=== PATIENT | female | born 1935 | race African-American/Black ===

== ENCOUNTER 2016-09-20 10:51 | Inpatient (IN) ==
[2016-09-20] MEDS ORDERED: LEVOFLOXACIN INJ 750 MG in PREMIX 1 EACH IV STA (11:06)
[2016-09-20] MEDS ORDERED: METOCLOPRAMIDE 10 MG/2 ML VIAL IV STA (11:06)
[2016-09-20] MEDS ORDERED: SODIUM CHLORIDE 0.9% 1,000 ML IV STA ×2 (11:06→14:14)
[2016-09-20] MEDS ORDERED: methylPREDNISolone SOD SUC 125 MG/2 ML VIAL IV STA (11:06)
[2016-09-20] MEDS ORDERED: ONDANSETRON 4 MG/2 ML VIAL IV STA (11:06)
--- NOTE | 2016-09-20 11:11 | Emergency Department Note ---
Arrival - Arrival Chief Complaint: Shortness of Breath ED Nursing Triage Note: SOB WITH N/V ONSET LAST NIGHT, PT LIVES ALONE. ACCU CHECK 241 MG/DL Mode of Arrival: Stretcher Limitations: No Limitations Source: Patient Time Seen by Provider: 09/20/16 11:06 - History of Present Illness HPI Narrative: This 81-year-old black female who lives alone presents with 24 hours of intermittent nausea, vomiting, abdominal pain, intermittent wheeze, and progressive shortness of breath. The patient does not report any purulence, chest pain, chills, fever, diarrhea, bright red blood per rectum, or melena. Patient is diabetic and current Accu-Chek is 240. I have the moment she is alert and oriented with her main complaint being just not feeling well at all. Onset (ago): hour(s) (Patient presents 24 hours post onset of symptoms) Allergies/Adverse Reactions: Allergies Allergy/AdvReac Type Severity Reaction Status Date / Time Penicillins Allergy ANAPHYLAXIS Verified 09/20/16 11:00 Home Medications: Home Medications Medication Instructions Recorded Confirmed Type Allopurinol [Zyloprim] 100 mg PO DAILY 02/05/16 07/27/16 History Aspirin EC Tab 81 mg PO DAILY 02/05/16 07/27/16 History Diclofenac Sodium Tab [Voltaren] 75 mg PO BID 02/05/16 07/27/16 History Fluticasone/Vilanterol [Breo 1 puff INH DAILY 02/05/16 07/27/16 History Ellipta 100-25 Mcg INH] Furosemide Tab [Lasix Tab] 40 mg PO DAILY PRN 02/05/16 07/27/16 History Insulin NPH Human Isophane 10 unit SUBCUT BID 02/05/16 07/27/16 History [NovoLIN N] Letrozole [Femara] 2.5 mg PO DAILY 02/05/16 07/27/16 History Meloxicam [Mobic] 15 mg PO DAILY 02/05/16 07/27/16 History Montelukast Tab [Singulair Tab] 10 mg PO BEDTIME 02/05/16 07/27/16 History Spironolactone [Aldactone] 25 mg PO DAILY 02/05/16 07/27/16 History Thyroid [[place] Thyroid] 30 mg PO DAILY 02/05/16 07/27/16 History Tiotropium Inhalation [Spiriva 18 mcg INH DAILY 02/05/16 07/27/16 History Handihaler] HYDROcodone/ACETAMIN 10-325 [[place] 1 tablet PO Q6H PRN #20 tablet 02/10/1607/27 Rx 10-325] Albuterol Inhaler [Proventil 2 puff INH Q4H PRN 07/27/16 07/27/16 History Inhaler] Linaclotide [Linzess] 145 mcg PO AC BREAKFAST 07/27/16 07/27/16 History Review of System - Review of System 12 point system: reviewed and no additional remarkable complaints except as stated - Review of System Constitutional: Present: as per HPI Respiratory: Present: as per HPI Cardiovascular: Present: as per HPI Gastrointestinal: Present: as per HPI Medical,Surgical,& Family Hx - Medical History Cardio: History of: CHF, Hypertension, Pacemaker Endocrine: History of: Diabetes Mellitus (IDDM), Diabetes Mellitus (NIDDM), Thyroid Disorder Respiratory: History of: Asthma, COPD Gastrointestinal: History of: Bowel Obstruction Musculoskeletal: History of: Musculoskeletal Problems (right knee arthritis) Reproductive: History of: Breast Cancer (2014) Other: History of: Cancer - Surgical History Abdominal Surgeries: Surgical HX of: Abdominal Surgery (bowel obstruction surgery), Hernia Repair - Family History Family History: Reports;: Family Diabetes (brothers and sisters) - Social History Smoking Status: Unknown if ever smoked Exam Physical Examination: GENERAL: Morbidly obese black female and mild distress. HEENT: Normocephalic. No trauma. Moist mucous membranes. EOMI. PERRLA. ENT NML NECK: Supple. No adenopathy. CARDIAC: Regular. No murmurs. Heart rate 76 CHEST: Scattered expiratory vignesh. No respiratory distress. O2 sat 100% ABDOMEN: Soft. Tender left lower quadrant with hypoactive bowel sounds bowel sounds.: feces found in vault ginal vauEXTREMITIES: No trauma. Normal ROM. No pedal edema. SKIN: No diaphoresis. No rash. Skin warm. NEURO: Alert. Neuro intact no focal deficits. Vital Signs: Vital Signs Temperature 98.1 F 09/20/16 12:28 Pulse Rate 81 09/20/16 12:38 Respiratory Rate 18 09/20/16 12:38 Blood Pressure 82/41 09/20/16 12:28 O2 Sat by Pulse Oximetry 93 L 09/20/16 12:38 Course - Reevaluation(s) Reevaluation #1: Discussed with patient and family the need for hospitalization - Consultations Consultation #1: Discussed with Dr. Allred who will see in consult as he feels her numerous medical problems require medicine admission while following her obstruction. Consultation #2: Discussed the case with the hospitalist service who will admit the patient for further evaluation treatment. Results - Labs CBC & BMP: 09/20/16 11:47 09/20/16 11:47 Labs: I reviewed the laboratory and noted the low potassium and evidence of renal azotemia. - Impressions EKG: Sinus rhythm at 80 with normal NH interval but evidence of left bundle branch block with left axis deviation. Nonspecific ST changes but no acute injury pattern noted. - Diagnostic Findings Procedure: Chest x-ray: image reviewed by me, report reviewed by me (Pacemaker with cardiomegaly and increased interstitial markings), CT Abdomen and Pelvis: image reviewed by me, report reviewed by me (Small bowel obstruction secondary to adhesions) Disposition Clinical Impression: Small bowel obstruction, Congestive heart failure, Renal insufficiency, Diabetes, Hypertension, Pacemaker Case discussed with: patient, patient's family Disposition: Still a Patient Condition: Guarded Time of Disposition: 14:45
--- NOTE | 2016-09-20 11:11 | EKG Report ---
Stationary ECG Study [facility] ER Test Date: 09/20/2016 11:02:55 AM Pat Name: KIKI ANGEL Department: Room: 125 Gender: F [employer]: : 1935 Requested by: Stew Ellington Order Number: [id number] Ines MD: ZENON PINO Intervals [place] Rate: 81 P: 83 MD: 188 QRS: -43 QRSD: 141 T: 171 QT: 522 QTc: 560 Interpretive Statements SINUS RHYTHM MARKED LEFT AXIS DEVIATION LEFT BUNDLE BRANCH BLOCK Electronically Signed On 09-21-16 20:37:07 CDT by ZENON PINO [email or web address]
[2016-09-20] MEDS ORDERED: metroNIDAZOLE INJ 500 MG in PREMIX 1 EACH IV STA (11:22)
[2016-09-20] MEDS ORDERED: ALBUTEROL 2.5 MG/3 ML NEB RESP TX SCH (11:30)
--- NOTE | 2016-09-20 11:35 | XRay Report ---
XR chest 1V portable Indication: SOB Comparison: Chest x-ray dated July 27, 2016 Technique: Single frontal view of the chest. Findings: Continued cardiomegaly. Cardiac pacemaker apparatus again noted within the right chest. There is nonspecific prominence of lung markings suspicious for interstitial pulmonary edema. Chronic/fibrotic change and interstitial pneumonia may have similar appearance. Visualized osseous and surrounding soft tissue structures appear grossly unchanged. IMPRESSION: As above. PROCEDURE INTERPRETED AT [facility] [place] DEPARTMENT OF RADIOLOGY Final Report Signed by: Dr Osman Willoughby
[2016-09-20] MEDS ORDERED: ONDANSETRON 4 MG/2 ML VIAL ONE (11:49)
[2016-09-20] MEDS ORDERED: METOCLOPRAMIDE 10 MG/2 ML VIAL ONE (11:49)
[2016-09-20] MEDS ORDERED: LEVOFLOXACIN INJ 150 ML IV ONE (11:49)
[2016-09-20] MEDS ORDERED: methylPREDNISolone SOD SUC 125 MG/2 ML VIAL ONE (11:49)
[2016-09-20 12:09] LABS: Basophils % 0.5 % (0.0-0.8); Eosinophils % 0.2 % (0.00-10.9); Hematocrit 39.7 VOL% (35.7-47.0); Hemoglobin 12.6 GM/DL (12.0-16.0); Immature Granulocytes % 0.4 %; Immature Granulocytes Absolute 0.03 #; Lymphocytes # 0.6 10*3/uL (1.4-4.0); Lymphocytes % 6.8 % (21.3-54.2); Mean Corpuscular HGB Conc 31.7 GM/DL (32-36); Mean Corpuscular Hemoglobin 29 PG (27-34); Mean Corpuscular Volume 90.8 FL (87-102); Mean Platelet Volume 12.3 FL (9.6-12.0); Monocytes # 0.7 10*3/uL (0.11-0.8); Monocytes % 7.8 % (1.7-12.7); Neutrophils % 84.3 % (38.7-73.9); Platelet Count 275 T/CUMM (130-400); Red Blood Count 4.37 MC/CUMM (3.8-5.5); Red Cell Distribution Width 14.9 % (9.3-17.3); White Blood Count 8.3 T/CUMM (4-12)
[2016-09-20 12:12] LABS: Apearance,Urine Slightly Hazy (Clear); Bilirubin,Urine Negative (Negative); Blood, Urine Negative (Negative); Glucose,Urine (UA) Negative (Negative); Hyaline Casts,Urine 9 /LPF (0-3); Ketones,Urine Negative (Negative); Mucus,Urine Occasional /LPF (Occasional); Nitrite,Urine Negative (Negative); Protein,Urine Negative; RBC,Urine 1 /HPF (0-4); Urine Color Yellow (Yellow); Urine Specific Gravity 1.013 (1.001-1.035); Urine Urobilinogen < 2.0 EU/DL (0.2-1.0); WBC,Urine 1 /HPF (0-6)
[2016-09-20 12:23] LABS: Barbiturates Screen,Urine Negative (Negative); Benzodiazepines Screen,Urine Negative (Negative); Cannabinoid Screen,Urine Negative (Negative); Opiate Screen,Urine Positive (Negative); Phencyclidine Screen,Urine Negative (Negative)
[2016-09-20 12:39] LABS: INR 1.2; PT Patient Result 13.3 SECS; Partial Thromboplastin Time 29.9 SECS (0-40)
[2016-09-20 12:45] LABS: Lactic Acid 6.6 MMOL/L (0.4-2.0)
[2016-09-20 12:46] LABS: Alanine Aminotransferase 11 U/L (13-56); Albumin 3.3 G/DL (3.4-5.0); Alkaline Phosphatase 141 U/L (45-117); Aspartate Amino Transferase 16 U/L (0-37); Calcium 9.1 MG/DL (8.5-10.1); Total Protein 7.3 G/DL (6.4-8.3)
[2016-09-20 12:47] LABS: Amylase 65 U/L (25-115); Blood Urea Nitrogen 57 MG/DL (7-18); Glucose 229 MG/DL (74-106); Osmolality,Calculated 305.1 MOS/KG (273-304); Potassium 3.4 MMOL/L (3.5-5.1); Sodium 142 MMOL/L (136-145)
[2016-09-20 12:53] LABS: Band Neutrophils 51 % (0-10); Eosinophils 1 % (0-10); Hypochromasia Slight; Lymphocytes 10 % (20-55); Platelet Estimate Adequate; Segmented Neutrophils 26 % (50-85); Total Cells Counted 100
[2016-09-20 12:54] LABS: Troponin I Only 0.063 NG/ML (0.00-0.045)
--- NOTE | 2016-09-20 14:01 | CT Report ---
CT abdomen pelvis wo con Indication: Small bowel obstruction Comparison: None. Technique: CT of the abdomen and pelvis was performed without administration of intravenous contrast. The CT examination was performed using one or more of the following dose reduction techniques: Automatic exposure control, adjustment of the mA and kV according to patient size, use of acute or iterative reconstruction techniques. Findings: Complete evaluation of solid organs, vascular structures, and bowel wall is not possible secondary to lack of intravenous contrast. Lower chest: Pacemaker wires are present. Coronary artery calcifications are present. Diffusely distributed air space disease is demonstrated within the bilateral lower lobes. Nodular airspace attenuation is more prevalent within the left lower lobe and bilaterally, bronchiectasis is demonstrated as is possible dependent atelectasis within the left lower lobe. Additional bronchiectasis is present within the lingula. Honeycombing additionally is present bilaterally within the posterior lower lobes. The overall attenuation of the lung parenchyma is somewhat increased. Correlation with amiodarone therapy is recommended as this could reflect sequelae of amiodarone therapy and evidence of toxicity. Pulmonary arteries appear enlarged. Liver: No mass lesions or acute findings are demonstrated. Calcification along the posterior margin of the right hepatic lobe is again demonstrated. Gallbladder: Surgical absence of the gallbladder is demonstrated. Spleen: Spleen is normal in size and appearance. Pancreas: Pancreas demonstrates no significant abnormality. Adrenal glands: The adrenal glands demonstrate no significant abnormalities. Kidneys: The kidneys demonstrate no significant abnormalities. Aorta: Diffuse intimal calcification of the aorta and iliac arteries is demonstrated. Inferior vena cava: The inferior vena cava demonstrates no significant abnormality. Lymph nodes: No adenopathy is noted within the abdomen or pelvis. Stomach and bowel: Stomach is distended and filled with contrast. There is a thickened appearance of the second portion of the duodenal wall which may reflect contraction. Otherwise the duodenum and small bowel are grossly distended with multiple air fluid levels in a pattern compatible small bowel obstruction. Along the anterior abdominal wall to the right of midline image #82, there is a suggests transition point possibly secondary to adhesion distal to which small bowel loops are decompressed. Small bowel loops measure up to 4.7 cm. Intrapelvic contents: Partially calcified uterine fibroids are demonstrated. Ovaries are unremarkable. Skeletal structures: Moderately advanced multifocal facet arthropathy of the lower lumbar spine facets is demonstrated. Soft tissues and muscular structure of the body wall: Demonstrate no significant abnormalities. Impression: 1. Findings compatible with given history. Transition point appears to lie along the anterior abdominal wall to the right of midline and the appearance suggests abdominal wall adhesion. 2. Wall thickening within the second portion the duodenum is present. 3. Partially calcified uterine fibroids are demonstrated. 4. The appearance of the lung parenchyma may in part reflect infectious process superimposed on chronic interstitial disease within the left lung base. Given the appearance of the heart with presence of pacemaker wire and combine with pulmonary fibrosis and increased attenuation of the lung parenchyma, this could reflect also sequelae of amiodarone therapy as a background process. 09/20/2016 1:50 PM PROCEDURE INTERPRETED AT [facility] DEPARTMENT OF RADIOLOGY Final Report Signed by: Dr. Herbert Juarez
[2016-09-20] MEDS ORDERED: BENZOCAINE/BUTAMBEN/TETRACAINE SPRAY 20 GM CAN TOP ONE (14:34)
--- NOTE | 2016-09-20 14:45 | General Surgery Consult Note ---
Assessment and Plan (1) Small bowel obstruction Status: Acute Assessment and plan: Impression: Multiple medical problems, small bowel obstruction Plan: I have reviewed the lab work and CT scan. She appears very dehydrated. She is receiving IV fluids. CT scan suggests a transition point. Will ask hospital medicine to admit the patient. We will plan for resuscitation. She may ultimately require exploration. She does not have an acute abdomen at this time. We will monitor lactic acidosis. I suspect it will improve with resuscitation. She has significant cardiac issues and a slightly elevated troponin that I suspect is related to the dehydration and underlying medical problems rather than an acute injury. Will consult cardiology for their evaluation. I do not think that her 2 week history of shortness of breath is related to the obstruction. We will place NG tube. Current Visit: No History of Present Illness Chief complaint: Consult for small bowel obstruction History of present illness: Ms. Oconnell is a 81 year old female who underwent repair of an incarcerated hernia causing a small bowel obstruction in January of last year. Patient presents with a two-week history of shortness of breath. Last night she became nauseated and began vomiting. She is brought to the emergency room this morning by EMS. She was noted to be hypotensive. She was given IV fluids and is now normotensive. States she is feeling a little bit better since she is not currently vomiting. She has multiple medical problems. She currently does not have much abdominal pain but does complain of bloating. Home Medications Medication Instructions Recorded Confirmed Type Allopurinol [Zyloprim] 100 mg PO DAILY 02/05/16 07/27/16 History Aspirin EC Tab 81 mg PO DAILY 02/05/16 07/27/16 History Diclofenac Sodium Tab [Voltaren] 75 mg PO BID 02/05/16 07/27/16 History Fluticasone/Vilanterol [Breo 1 puff INH DAILY 02/05/16 07/27/16 History Ellipta 100-25 Mcg INH] Furosemide Tab [Lasix Tab] 40 mg PO DAILY PRN 02/05/16 07/27/16 History Insulin NPH Human Isophane 10 unit SUBCUT BID 02/05/16 07/27/16 History [NovoLIN N] Letrozole [Femara] 2.5 mg PO DAILY 02/05/16 07/27/16 History Meloxicam [Mobic] 15 mg PO DAILY 02/05/16 07/27/16 History Montelukast Tab [Singulair Tab] 10 mg PO BEDTIME 02/05/16 07/27/16 History Spironolactone [Aldactone] 25 mg PO DAILY 02/05/16 07/27/16 History Thyroid [[place] Thyroid] 30 mg PO DAILY 02/05/16 07/27/16 History Tiotropium Inhalation [Spiriva 18 mcg INH DAILY 02/05/16 07/27/16 History Handihaler] HYDROcodone/ACETAMIN 10-325 [[place] 1 tablet PO Q6H PRN #20 tablet 02/10/1607/27 Rx 10-325] Albuterol Inhaler [Proventil 2 puff INH Q4H PRN 07/27/16 07/27/16 History Inhaler] Linaclotide [Linzess] 145 mcg PO AC BREAKFAST 07/27/16 07/27/16 History Allergies Allergy/AdvReac Type Severity Reaction Status Date / Time Penicillins Allergy ANAPHYLAXIS Verified 09/20/16 11:00 Medical,Surgical,& Family Hx - Medical History Cardio: History of: CHF, Hypertension, Pacemaker Endocrine: History of: Diabetes Mellitus (IDDM), Diabetes Mellitus (NIDDM), Thyroid Disorder Respiratory: History of: Asthma, COPD Gastrointestinal: History of: Bowel Obstruction Musculoskeletal: History of: Musculoskeletal Problems (right knee arthritis) Reproductive: History of: Breast Cancer (2015) Other: History of: Cancer - Surgical History Abdominal Surgeries: Surgical HX of: Abdominal Surgery (bowel obstruction surgery), Hernia Repair - Family History Family History: Reports;: Family Diabetes (brothers and sisters) - Social History Smoking Status: Unknown if ever smoked 12 point system: reviewed and no additional remarkable complaints except as stated Exam - Constitutional Vitals: Period Temp Pulse Resp BP Sys/[place] Pulse Ox Last 24 Hr 98.1 F-98.1 F 76-81 18-32 82-82/41-41 93-100 General appearance: no acute distress - Head Head exam: Present: normocephalic - ENT Mouth exam: Present: normal external inspection - Respiratory Respiratory exam: Present: clear to auscultation bilaterally - Cardiovascular Cardiovascular exam: Present: RRR - GI/Abdominal GI/Abdominal exam: Present: soft (Very distended, minimally tender mostly on the right. No peritoneal signs.) - Extremities Exam Extremities exam: Present: normal inspection - Neurological Exam Neurological exam: Present: alert, oriented X3 Speech: Present: normal - Skin Skin exam: Present: normal color Results - Labs CBC & BMP: 09/20/16 11:47 09/20/16 11:47 Lab Results: I have reviewed the past 24 hour labs
--- NOTE | 2016-09-20 15:21 | Cardiology Consult Note ---
Assessment and Plan - Time spent with patient Time spent with patient: Greater than 30 minutes (due to assessment,plan, and documentation) Time spent discussing smoking cessation with patient: 3 to 10 minutes (1) SBO (small bowel obstruction) Status: Acute Assessment and plan: SEE PLAN OF CARE LISTED BELOW. Current Visit: No (2) Elevated troponin Status: Acute Assessment and plan: SEE PLAN OF CARE LISTED BELOW. Current Visit: Yes (3) Dehydration Status: Acute Assessment and plan: SEE PLAN OF CARE LISTED BELOW. Current Visit: Yes (4) Nonischemic cardiomyopathy Status: Chronic Assessment and plan: SEE PLAN OF CARE LISTED BELOW. Current Visit: Yes (5) Chronic renal insufficiency Status: Chronic Assessment and plan: SEE PLAN OF CARE LISTED BELOW. Current Visit: Yes (6) Status post placement of cardiac pacemaker Status: Chronic Assessment and plan: SEE PLAN OF CARE LISTED BELOW. Current Visit: No (7) Hypertension Status: Chronic Assessment and plan: SEE PLAN OF CARE LISTED BELOW. Current Visit: Yes (8) Diabetes mellitus Status: Chronic Assessment and plan: SEE PLAN OF CARE LISTED BELOW. Current Visit: No (9) COPD (chronic obstructive pulmonary disease) Status: Chronic Assessment and plan: SEE PLAN OF CARE LISTED BELOW. Current Visit: No (10) History of breast cancer Status: Chronic Assessment and plan: SEE PLAN OF CARE LISTED BELOW. Current Visit: No History of Present Illness - Data of Consult Patient: known to practice within the last 3 years (followed by Dr. Petty) Consult date: 09/20/16 Requesting Physician: Ariel Allred Primary care physician: Jacky Ramirez - Consult Narrative Reason for consult: elevated troponin, possible surgery History of present illness: MILK CONDENSER: DR. PETTY PCP: DR. JACKY RAMIREZ [employer] BROKER: DR. ABBE CHAWLA Ms. Oconnell is a 81 year old female who has a history of hypertension, diabetes, nonischemic cardiomyopathy, pacemaker, chronic left bundle branch block, hypothyroidism, COPD, chronic renal insufficiency, obesity , sleep apnea, and history of breast cancer. Her pacemaker was placed over 20 years ago on May 18, 1987 for diagnosis of third-degree heart block. According to her records there are no longer any sort of programmers available for her [employer] device. This is being monitored with magnet behavior since there are no programmers available. She has been doing well without evidence of pauses or asystole or bradycardia recently. Her last nuclear stress test was November 05, 2015. This was a low risk study which revealed an ejection fraction of 51% with normal segmental wall motion. Her last echocardiogram was October 27, 2015 and revealed ejection fraction of 40-45% with mild diastolic dysfunction, mildly enlarged left atrium, trace mitral and tricuspid regurgitation. Ms. Oconnell presented to the emergency room today via EMS with a two-week history of progressive shortness of breath. Last night she became nauseated and vomited all night. Her niece is at the bedside and helps in providing some of the history. Upon arrival she was noted to be hypotensive. She was given IV fluids and this is improved. NG tube was placed and is draining orange tinged fluid. She underwent a CT scan of the abdomen which shows a transition point which seems to lie along the anterior abdominal wall to the right of midline and appearance suggesting abdominal wall adhesion. There is also noted to be wall thickening within the second portion of the duodenum and appearance of lung parenchyma which may in part reflect infectious process superimposed on chronic interstitial disease within the left lung base. On 02/05/16, she had an incarcerated hernia which caused a small bowel obstruction for which she underwent repair. General surgery has seen her in consultation. Hospitalist will be admitting the patient. We are consulted to see her due to an elevated troponin and possible need for surgery. She may require exploration but does not have an acute abdomen at this time. ASSESSMENT/PLAN: 1. SMALL BOWEL OBSTRUCTION - She is being admitted to hospitalist service with general surgery consulting. She will be resuscitated per sepsis protocol. She will be started on antibiotics. 2. ELEVATED TROPONIN -troponin is trivially elevated at 0.063. This is in the setting of creatinine of 3.6. I suspect this is related to her dehydration and impaired renal function rather than acute ischemic event. She does have a chronic left bundle branch block. We will continue to cycle her cardiac biomarkers. She has had a low risk nuclear stress test less than 1 year ago. 3. DEHYDRATION -patient receiving hydration with IV fluids. 4. NONISCHEMIC CARDIOMYOPATHY - Her last nuclear stress test was November 05, 2015. This was a low risk study which revealed an ejection fraction of 51% with normal segmental wall motion. Her last echocardiogram was October 27, 2015 and revealed ejection fraction of 40-45% with mild diastolic dysfunction, mildly enlarged left atrium, trace mitral and tricuspid regurgitation. Her BNP is trivially elevated at 272 in the setting of renal insufficiency. She has no overt signs of heart failure at this time. 5. CHRONIC RENAL INSUFFICIENCY -creatinine is 3.6 on admission. This looks to be a little bit above her baseline 6. S/P PACEMAKER PLACEMENT - Her pacemaker was placed over 20 years ago on May 18, 1987 for diagnosis of third-degree heart block. According to her records there are no longer any sort of programmers available for her [employer] device. This is being monitored with magnet behavior since there are no programmers available. She has been doing well without evidence of pauses or asystole or bradycardia recently. 7. HYPERTENSION -she was hypotensive on admission and received IV fluid bolus. She is now normotensive. Will monitor her blood pressure. 8. DIABETES MELLITUS - Accuchecks and sliding scale insulin have been ordered. 9. COPD - O2 PRN. She has breathing treatments ordered. 10. HISTORY OF BREAST CANCER -she was diagnosed with breast cancer over a year ago and was treated surgically. Dr. Petty to follow with further plan and addendum. CC: - Home Medications and Allergies Home Medications: Home Medications Medication Instructions Recorded Confirmed Type Allopurinol [Zyloprim] 100 mg PO DAILY 02/05/16 07/27/16 History Aspirin EC Tab 81 mg PO DAILY 02/05/16 07/27/16 History Diclofenac Sodium Tab [Voltaren] 75 mg PO BID 02/05/16 07/27/16 History Fluticasone/Vilanterol [Breo 1 puff INH DAILY 02/05/16 07/27/16 History Ellipta 100-25 Mcg INH] Furosemide Tab [Lasix Tab] 40 mg PO DAILY PRN 02/05/16 07/27/16 History Insulin NPH Human Isophane 10 unit SUBCUT BID 02/05/16 07/27/16 History [NovoLIN N] Letrozole [Femara] 2.5 mg PO DAILY 02/05/16 07/27/16 History Meloxicam [Mobic] 15 mg PO DAILY 02/05/16 07/27/16 History Montelukast Tab [Singulair Tab] 10 mg PO BEDTIME 02/05/16 07/27/16 History Spironolactone [Aldactone] 25 mg PO DAILY 02/05/16 07/27/16 History Thyroid [[place] Thyroid] 30 mg PO DAILY 02/05/16 07/27/16 History Tiotropium Inhalation [Spiriva 18 mcg INH DAILY 02/05/16 07/27/16 History Handihaler] HYDROcodone/ACETAMIN 10-325 [[place] 1 tablet PO Q6H PRN #20 tablet 02/10/1607/27 Rx 10-325] Albuterol Inhaler [Proventil 2 puff INH Q4H PRN 07/27/16 07/27/16 History Inhaler] Linaclotide [Linzess] 145 mcg PO AC BREAKFAST 07/27/16 07/27/16 History Allergies/Adverse Reactions: Allergies Allergy/AdvReac Type Severity Reaction Status Date / Time Penicillins Allergy ANAPHYLAXIS Verified 09/20/16 11:00 Review of systems: - Constitutional: Present: As per HPI. Absent: anorexia, chills, daytime sleepiness, excessive sweating, fever(s), frequent falls, headache(s), increased appetite, lethargy, malaise, night sweats, stops breathing during sleep, weakness, weight gain, weight loss, fatigue. - EENT Eyes: Present: As per HPI. Absent: blurry vision, diplopia, loss of vision Ears: Present: As per HPI. Absent: decreased hearing, ear discharge, ear pain Nose, mouth and throat: Present: As per HPI. Absent: dysphagia, epistaxis, headache(s), hoarseness, lip swelling, nasal congestion, neck mass, neck pain, sinus pressure, sore throat, throat swelling, tongue swelling, vertigo - Cardiovascular: Present: dyspnea, dyspnea on exertion, edema, as per HPI. Absent: chest pain at rest, chest pain with activity, claudication, diaphoresis , radiating jaw, neck or arm pain, lightheadedness, orthopnea, palpitations, PND - Respiratory: Present: dyspnea, dyspnea on exertion, cough, as per HPI. Absent : hemoptysis, wheezing, snoring, pain on inspiration - Gastrointestinal: Present: bloating, change in bowel habits, constipation, nausea, vomiting, As per HPI. Absent: abdominal pain, diarrhea, heartburn, hematemesis, hematochezia, loose stools, melena, - Genitourinary: Present: As per HPI. Absent: difficulty urinating, dysuria, flank pain, hematuria, nocturia, urinary frequency, urinary incontinence - Musculoskeletal: Present: As per HPI. Absent: arthralgias, back pain, joint swelling, limited range of motion, muscle cramps, muscle weakness, myalgias - Neurological: Present: As per HPI. Absent: abnormal speech, behavioral changes , confusion, convulsions, disequilibrium, dizziness, focal weakness, frequent falls, headache(s), memory loss, numbness, paresthesias, radicular pain, syncope , tremor(s) - Psychiatric: Present: As per HPI. Absent: anxiety, confusion, depression, panic attacks - Endocrine: Present: As per HPI. Absent: cold intolerance, fatigue, heat intolerance, polydipsia, polyphagia - Hematologic/Lymphatic: Present: As per HPI. Absent: easy bleeding, easy bruising, lymphadenopathy Medical,Surgical,& Family Hx - Medical History Cardio: History of: CHF, Hypertension, Pacemaker Endocrine: History of: Diabetes Mellitus (IDDM), Diabetes Mellitus (NIDDM), Thyroid Disorder Respiratory: History of: Asthma, COPD Gastrointestinal: History of: Bowel Obstruction Musculoskeletal: History of: Musculoskeletal Problems (right knee arthritis) Reproductive: History of: Breast Cancer (2015) Other: History of: Cancer - Surgical History Abdominal Surgeries: Surgical HX of: Abdominal Surgery (bowel obstruction surgery), Hernia Repair - Family History Family History: Reports;: Family Diabetes (brothers and sisters) - Social History Smoking Status: Former smoker (patient reports she last smoked approximately 2 months ago) Have you smoked in the last 12 months: Yes Time spent discussing smoking cessation with patient: 3 to 10 minutes Frequency of Alcohol Use: None Type of Drug Use: None Marital Status: Lives With:: Alone Functional capacity: uses cane/walker Physical Examination Vital Signs Temp Pulse Resp BP Pulse Ox 98.1 F 76 32 H 82/41 100 09/20/16 10:51 09/20/16 10:51 09/20/16 10:51 09/20/16 10:51 09/20/16 10:51 Other: General appearance: Pleasant and cooperative. Normal weight, mild respiratory distress with conversational dyspnea. - Head Head exam: Present: normal inspection, normocephalic, atraumatic. Absent: hematoma, laceration - Eye Eye exam: Present: EOMI. Absent: conjunctival injection, nystagmus, periorbital swelling, scleral icterus, laceration to eyelids Pupils: Present: PERRL. Absent: constricted, dilated, fixed, irregular, unequal - ENT ENT exam: Present: normal exam, normal external ear exam, NG tube in place to LIWS. - Neck Neck exam: Present: normal inspection. Absent: lymphadenopathy, meningismus, tenderness, thyromegaly - Respiratory Respiratory exam: Present: coarse breath sounds bilaterally. Absent: accessory muscle use, chest wall tenderness - Cardiovascular Cardiovascular exam: Present: regular rate and rhythm, grade 2 systolic murmur. Absent: carotid bruit, gallop, JVD, rubs - GI/Abdominal GI/Abdominal exam: Present: hypoactive bowel sounds, soft, mildly distended and tender. Absent: firm, guarding, hernia, mass, rebound. - Extremities Exam Extremities exam: Present: normal inspection, normal capillary refill. Upper extremity pulses 2+. Lower extremity pulses 2+. Absent: calf tenderness, edema -Musculoskeletal Exam Musculoskeletal: Present: No Fluid Collection, No Pain, Normal Range of Motion - Back Exam Back exam: Present: normal inspection. Absent: muscle spasm, vertebral tenderness - Neurological Exam Neurological exam: Present: alert, oriented X3, grossly intact without resting or essential tremor - Psychiatric Psychiatric exam: Present: normal affect, normal mood - Skin Skin exam: Present: normal color, warm, dry, intact. Absent: cyanosis, diaphoretic, rash, urticaria Result/EKG - Labs CBC & BMP: 09/20/16 11:47 09/20/16 11:47 Lab Results: I have reviewed the past 24 hour labs Labs: Laboratory Results - last 24 hr 09/20/16 09/20/16 09/20/16 11:47 11:47 11:47 WBC 8.3 RBC 4.37 Hgb 12.6 Hct 39.7 MCV 90.8 MCH 29 MCHC 31.7 L RDW 14.9 Plt Count 275 MPV 12.3 H Neut % (Auto) 84.3 H Lymph % (Auto) 6.8 L Garvin % (Auto) 7.8 Eos % (Auto) 0.2 Baso % (Auto) 0.5 Neut # (Auto) 7.0 Lymph # (Auto) 0.6 L Garvin # (Auto) 0.7 Eos # (Auto) 0.0 Baso # (Auto) 0.0 Total Counted 100 Immature Gran % 0.4 Nucleated RBC % 0.0 Immature Gran # 0.03 Segmented Neutrophils 26 L Band Neutrophils 51 H Lymphocytes 10 L Monocytes 12 Eosinophils 1 Nucleated RBCs # 0.00 Platelet Estimate Adequate Hypochromasia Slight INR PT Patient/Control Mix Circ Anticoag PTT Sodium 142 Potassium 3.4 L Chloride 98 Carbon Dioxide 21 Anion Gap 26.4 H BUN 57 H Creatinine 3.60 H GFR Calculation 14 BUN/Creatinine Ratio 15.00 Glucose 229 H Calculated Osmolality 305.1 H Lactic Acid 6.6 H Calcium 9.1 Total Bilirubin 1.20 H AST 16 ALT 11 L Alkaline Phosphatase 141 H Total Creatine Kinase 83 CK-MB (CK-2) 1.6 Troponin I 0.063 H B-Natriuretic Peptide Total Protein 7.3 Albumin 3.3 L Globulin 4.0 H Albumin/Globulin Ratio 0.8 L Amylase 65 Lipase 53.0 L Urine Color Yellow Urine Appearance Slightly hazy Urine pH 5.0 Ur Specific [place] 1.013 Urine Protein Negative Urine Glucose (UA) Negative Urine Ketones Negative Urine Blood Negative Urine Nitrate Negative Urine Bilirubin Negative Urine Urobilinogen < 2.0 H Urine Leukocytes Negative Urine RBC 1 Urine WBC 1 Hyaline Casts 9 Urine Mucus Occasional Ur Culture Indicated? Not indicated Urine Opiates Screen Ur Barbiturates Screen Ur Phencyclidine Scrn U Amphetamine/Methamph U Benzodiazepines Scrn U Cocaine Metab Screen U Cannabinoids Screen 09/20/16 09/20/16 09/20/16 11:47 11:47 12:24 WBC RBC Hgb Hct MCV MCH MCHC RDW Plt Count MPV Neut % (Auto) Lymph % (Auto) Garvin % (Auto) Eos % (Auto) Baso % (Auto) Neut # (Auto) Lymph # (Auto) Garvin # (Auto) Eos # (Auto) Baso # (Auto) Total Counted Immature Gran % Nucleated RBC % Immature Gran # Segmented Neutrophils Band Neutrophils Lymphocytes Monocytes Eosinophils Nucleated RBCs # Platelet Estimate Hypochromasia INR 1.2 PT Patient/Control Mix 13.3 Circ Anticoag PTT 29.9 Sodium Potassium Chloride Carbon Dioxide Anion Gap BUN Creatinine GFR Calculation BUN/Creatinine Ratio Glucose Calculated Osmolality Lactic Acid Calcium Total Bilirubin AST ALT Alkaline Phosphatase Total Creatine Kinase CK-MB (CK-2) Troponin I B-Natriuretic Peptide 272 H Total Protein Albumin Globulin Albumin/Globulin Ratio Amylase Lipase Urine Color Urine Appearance Urine pH Ur Specific [place] Urine Protein Urine Glucose (UA) Urine Ketones Urine Blood Urine Nitrate Urine Bilirubin Urine Urobilinogen Urine Leukocytes Urine RBC Urine WBC Hyaline Casts Urine Mucus Ur Culture Indicated? Urine Opiates Screen Positive H Ur Barbiturates Screen Negative Ur Phencyclidine Scrn Negative U Amphetamine/Methamph Negative U Benzodiazepines Scrn Negative U Cocaine Metab Screen Negative U Cannabinoids Screen Negative - EKG EKG results: interpreted by me, sinus rhythm (with chronic left bundle branch block)
--- NOTE | 2016-09-20 15:36 | Hospitalist History & Physical ---
Assessment and Plan - Time spent with patient Time spent with patient: Greater than 30 minutes (1) Septic shock Status: Acute Assessment and plan: Ms. Oconnell is an 81-year-old -[place] female with history of hypertension, diabetes, nonischemic cardiomyopathy, pacemaker, chronic left bundle branch block, hypothyroidism, COPD, chronic renal insufficiency, obesity , sleep apnea, and history of breast cancer admitted by the hospitalist service with septic shock due to small bowel obstruction. She also has acute kidney injury due to dehydration and mildly elevated troponins. She also has acute renal failure patient was tachypneic and hypotensive upon arrival and her lactic acid is 6.6 along with a creatinine of 3.6. Patient will be admitted to ICU under Dr. Washington's care. Dr. Allred and cardiology have already seen the patient and evaluated. Patient has an NG tube in place and we will monitor her output. She will be resuscitated per sepsis protocol. She will be started on antibiotics to cover her lungs and abdomen. we will restart her home medicines. Sliding scale insulin per protocol. Dr. Washington has seen and examined patient and further recommendations to follow. Current Visit: Yes (2) Chronic renal insufficiency Status: Acute Current Visit: Yes (3) COPD (chronic obstructive pulmonary disease) Status: Acute Current Visit: No (4) Cardiomyopathy Problem details: The patient has a mild cardiomyopathy with a left ventricular ejection fraction of 40-45%. She underwent a cardiac ischemic screening a couple of years ago which showed no evidence of cardiac ischemia. She's not had any significant clinical change from a cardiac standpoint since that time. Status: Acute Current Visit: No (5) Diabetes mellitus Status: Acute Current Visit: No (6) History of breast cancer Status: Acute Current Visit: No (7) Hypothyroidism Status: Acute Current Visit: No (8) SBO (small bowel obstruction) Status: Acute Current Visit: No History of Present Illness Chief complaint: Shortness of breath, abdominal pain, nausea vomiting History of present illness: Ms. Oconnell is a 81 year old -[place] female with history of hypertension , diabetes, nonischemic cardiomyopathy, pacemaker, hypothyroidism, COPD, chronic renal insufficiency, obesity, sleep apnea, history of breast cancer presenting to the ED by EMS with complaints of shortness of breath, nausea and vomiting with abdominal pain. Patient states she has been short of breath for approximately 2 weeks but the nausea and vomiting started acutely yesterday. Patient states she vomited all night long with abdominal pain. She has not had a BM or passed flatus lately. Patient had undergone open repair of incarcerated incisional hernia with small bowel obstruction by Dr. Neri on . Up to that time she had multiple small bowel obstructions that resolved with conservative measures and she has had one episode after surgery in February 2016. Upon exam patient is not actively vomiting but she does have NG tube in place. We are awaiting x-ray for placement so it can be put to suction. Patient's abdomen is moderately distended and tender. CT scan shows a transition point along the anterior abdominal wall to the right of midline suggesting abdominal wall adhesion. There is wall thickening within the second portion of the duodenum also. The appearance of the lung parenchyma may in part reflect infectious process superimposed on chronic interstitial disease within the left lung base. Patient does have some coarseness bilaterally with a cough. Patient was hypotensive upon presentation to the ED. She did receive some IV fluids and is now normotensive. Patient denies headache, dysphasia, chest pain, diarrhea, or lower extremity edema. Patient's tin flipper is Dr. Petty and her manager lean is Dr. Medeiros. Dr. Allred from surgery has already seen the patient and cardiology has been consulted for surgical clearance if needed. Patient's case was discussed with Dr. Perez the ED physician and Dr. Washington the admitting hospitalist, and it was agreed patient would be admitted for treatment. Home Medications Medication Instructions Recorded Confirmed Type Allopurinol [Zyloprim] 100 mg PO DAILY 02/05/16 07/27/16 History Aspirin EC Tab 81 mg PO DAILY 02/05/16 07/27/16 History Diclofenac Sodium Tab [Voltaren] 75 mg PO BID 02/05/16 07/27/16 History Fluticasone/Vilanterol [Breo 1 puff INH DAILY 02/05/16 07/27/16 History Ellipta 100-25 Mcg INH] Furosemide Tab [Lasix Tab] 40 mg PO DAILY PRN 02/05/16 07/27/16 History Insulin NPH Human Isophane 10 unit SUBCUT BID 02/05/16 07/27/16 History [NovoLIN N] Letrozole [Femara] 2.5 mg PO DAILY 02/05/16 07/27/16 History Meloxicam [Mobic] 15 mg PO DAILY 02/05/16 07/27/16 History Montelukast Tab [Singulair Tab] 10 mg PO BEDTIME 02/05/16 07/27/16 History Spironolactone [Aldactone] 25 mg PO DAILY 02/05/16 07/27/16 History Thyroid [[place] Thyroid] 30 mg PO DAILY 02/05/16 07/27/16 History Tiotropium Inhalation [Spiriva 18 mcg INH DAILY 02/05/16 07/27/16 History Handihaler] HYDROcodone/ACETAMIN 10-325 [[place] 1 tablet PO Q6H PRN #20 tablet 02/10/1607/27 Rx 10-325] Albuterol Inhaler [Proventil 2 puff INH Q4H PRN 07/27/16 07/27/16 History Inhaler] Linaclotide [Linzess] 145 mcg PO AC BREAKFAST 07/27/16 07/27/16 History Allergies Allergy/AdvReac Type Severity Reaction Status Date / Time Penicillins Allergy ANAPHYLAXIS Verified 09/20/16 11:00 Medical,Surgical,& Family Hx - Medical History Cardio: History of: CHF, Hypertension, Pacemaker Endocrine: History of: Diabetes Mellitus (IDDM), Diabetes Mellitus (NIDDM), Thyroid Disorder Respiratory: History of: Asthma, COPD Gastrointestinal: History of: Bowel Obstruction Musculoskeletal: History of: Musculoskeletal Problems (right knee arthritis) Reproductive: History of: Breast Cancer (2015) Other: History of: Cancer - Surgical History Abdominal Surgeries: Surgical HX of: Abdominal Surgery (bowel obstruction surgery), Hernia Repair Additional Surgical History: Pacemaker - Family History Family History: Reports;: Family Diabetes (brothers and sisters) - Social History Smoking Status: Former smoker Frequency of Alcohol Use: None Type of Drug Use: None Lives With:: Alone Functional capacity: uses cane/walker Review of systems: A complete 10 system review of systems was obtained and pertinent positives and negatives per HPI Exam - Constitutional Vitals: Period Temp Pulse Resp BP Sys/[place] Pulse Ox Last 24 Hr 98.1 F-98.1 F 76-81 18-32 82-82/41-41 93-100 Exam: Constitutional System: Mild distress. No tremulousness. Head: Normocephalic, atraumatic. Ears, Nose and Throat System: No evidence of Otitis or Mastoiditis. No epistaxis or discharge Eyes System: Pupils equal, round, and reactive. Extraocular muscles intact. Neck: Supple, without adenopathy, No jugular venous distention. No thyromegaly, neck mass, or prior surgery apparent. Respiratory System: Chest mild coarseness bilaterally to auscultation. Cardiovascular System: Heart with regular rate and rhythm. No murmur. GI System: Abdomen mildly distended, tender. No active bowel sounds present. Musculoskeletal System: limbs with no pedal edema. Full distal pulses. Neurological System: No discernable sensory deficit. No aphasia Psychiatric System: Conversation is rational Results - Labs CBC & BMP: 09/20/16 11:47 09/20/16 11:47 Lab Results: I have reviewed the past 24 hour labs - Impressions Left axis deviation, left bundle branch block - Diagnostic Findings Procedure: Chest x-ray: report reviewed by me (Cardiomegaly. Cardiac pacemaker within the right chest. Nonspecific prominence of lung markings suspicious for interstitial pulmonary edema. Chronic/fibrotic change and interstitial pneumonia may have similar), CT Abdomen and Pelvis: report reviewed by me ( Transition point appears to lie along the anterior abdominal wall to the right of midline in the appearance suggests abdominal wall adhesions. Wall thickening within the second portion of the duodenum is present. Calcified uterine fibroids. Appearance of the lung parenchyma may in part reflect infectious process superimposed on chronic interstitial disease within the left lung base.)
[2016-09-20] MEDS ORDERED: ONDANSETRON 4 MG/2 ML VIAL IV PRN (15:37)
[2016-09-20] MEDS ORDERED: ACETAMINOPHEN 325 MG SUPP RECTAL PRN (15:37)
[2016-09-20] MEDS ORDERED: DEXTROSE 50% 25 GM/50 ML VIAL IV PRN (15:43)
[2016-09-20] MEDS ORDERED: GLUCAGON 1 MG VIAL IM PRN (15:43)
--- NOTE | 2016-09-20 15:47 | XRay Report ---
XR chest 1V portable Indication: NG tube placement. Chest one view: There is now a NG tube present extending well into the stomach, looped back upon itself. Impression: Redundant NG tube in the stomach as described. PROCEDURE INTERPRETED AT [facility] DEPARTMENT OF RADIOLOGY Final Report Signed by: Gelacio Swanson M.D.
[2016-09-20] MEDS ORDERED: SODIUM CHLORIDE 0.9% 1,000 ML IV ONE (15:50)
[2016-09-20] MEDS ORDERED: metroNIDAZOLE 500 MG/100 ML PREMIX IV ONE (15:56)
[2016-09-20] MEDS ORDERED: SODIUM CHLORIDE 0.45% 1,000 ML IV SCH (16:00)
[2016-09-20 16:22] LABS: Free T4 (Free Thyroxine) 1.57 NG/DL (0.76-1.46); Thyroid Stimulating Hormone 2.79 uIU/ml (0.358-3.74)
[2016-09-20] MEDS: LEVOFLOXACIN INJ 500 MG in PREMIX 1 EACH IV SCH (16:42)
[2016-09-20 17:06] LABS: ABG Base Excess -7.2 MMOL/L (-2.5-2.5); ABG HCO3 18.5 MMOL/L (20-26); ABG Oxygen Saturation 86.8 % (95-100); ABG PCO2 38.3 MM HG (35-48); ABG PH 7.303 (7.35-7.45); ABG TCO2 19.7 MMOL/L (23-27)
[2016-09-20] MEDS: ENOXAPARIN 30 MG/0.3 ML SYRINGE SUBCUT SCH (17:38)
[2016-09-20] MEDS: POTASSIUM CHLORIDE RIDER 10 MEQ in PREMIX 1 EACH IV SCH ×2 (17:38→18:32)
[2016-09-20] MEDS: INSULIN LISPRO 100 UNIT/ML SUBCUT SCH ×2 (18:22→23:57)
[2016-09-20] MEDS: ALBUTEROL/IPRATROPIUM 3 ML NEB RESP TX SCH ×2 (18:57→23:03)
--- NOTE | 2016-09-20 20:17 | XRay Report ---
XR chest 1V portable Indication: Wheezing. Chest one view: Comparison 1119 hours shows a new NG tube and decreased lung volumes with increased interstitial prominence of the lungs. Borderline cardiomegaly and pacemaker device are stable. Impression: Minimal fluid overload with decreased lung volumes. PROCEDURE INTERPRETED AT [facility] DEPARTMENT OF RADIOLOGY Final Report Signed by: Gelacio Swanson M.D.
--- NOTE | 2016-09-20 20:23 | Event Note ---
Came by to see Ms. Oconnell. She is received 3 L of fluid. Her vital signs remained stable. Patient states she is feeling much better. NG tube is been placed and has about 400 cc of bile tinged fluid out. Urine output is much improved, now about 75 cc an hour. Abdomen remains distended but soft with minimal tenderness elicited. BMP is pending, but lactic acid was elevated up to 10 and now down to 7.1. Interestingly, the lactic acid at 10 was after she received the 3 L of fluid. She was then placed on maintenance fluid of 100 cc an hour and a redraw shows lactic acid down to 7.1. Lactic acidosis is concerning but minimal tenderness is elicited and the patient states she is feeling much better. Continue IV fluids. We will continue to watch her closely.
[2016-09-20 20:58] LABS: Calcium 7.7 MG/DL (8.5-10.1); Osmolality,Calculated 304.7 MOS/KG (273-304); Potassium 4.2 MMOL/L (3.5-5.1)
[2016-09-20] MEDS: metroNIDAZOLE INJ 500 MG in PREMIX 1 EACH IV SCH (21:39)
[2016-09-21] MEDS ORDERED: ACETAMINOPHEN 325 MG TABLET PO PRN (00:11)
[2016-09-21] MEDS: SODIUM CHLORIDE 0.9% 1,000 ML IV SCH ×3 (00:39→20:32)
[2016-09-21] MEDS: NOREPINEPHRINE 8 MG in SODIUM CHLORIDE 0.9% 242 ML IV SCH (00:39)
[2016-09-21 01:23] LABS: Troponin I Only 0.061 NG/ML (0.00-0.045)
[2016-09-21] MEDS: ALBUTEROL/IPRATROPIUM 3 ML NEB RESP TX SCH ×6 (03:01→23:56)
[2016-09-21] MEDS: metroNIDAZOLE INJ 500 MG in PREMIX 1 EACH IV SCH ×4 (04:22→22:28)
[2016-09-21 05:24] LABS: Basophils % 0.7 % (0.0-0.8); Hematocrit 33.1 VOL% (35.7-47.0); Hemoglobin 10.7 GM/DL (12.0-16.0); Immature Granulocytes % 7.5 %; Immature Granulocytes Absolute 0.44 #; Lymphocytes # 0.4 10*3/uL (1.4-4.0); Lymphocytes % 7.5 % (21.3-54.2); Mean Corpuscular HGB Conc 32.3 GM/DL (32-36); Mean Corpuscular Hemoglobin 29 PG (27-34); Mean Corpuscular Volume 89.5 FL (87-102); Mean Platelet Volume 12.4 FL (9.6-12.0); Monocytes # 0.9 10*3/uL (0.11-0.8); Monocytes % 14.9 % (1.7-12.7); Neutrophils # 4.1 10*3/uL (1.4-7.4); Neutrophils % 69.4 % (38.7-73.9); Platelet Count 233 T/CUMM (130-400); Red Cell Distribution Width 14.9 % (9.3-17.3); White Blood Count 5.9 T/CUMM (4-12)
[2016-09-21 05:49] LABS: Band Neutrophils 15 % (0-10); Burr Cells Slight; Hypochromasia 1+; Lymphocytes 15 % (20-55); Metamyelocytes 3 %; Myelocytes 3 %; Ovalocytes Slight; Platelet Estimate Adequate; Segmented Neutrophils 54 % (50-85); Total Cells Counted 100
[2016-09-21 05:51] LABS: Osmolality,Calculated 305.4 MOS/KG (273-304); Potassium 3.6 MMOL/L (3.5-5.1)
[2016-09-21] MEDS: INSULIN LISPRO 100 UNIT/ML SUBCUT SCH ×3 (06:01→19:08)
--- NOTE | 2016-09-21 06:10 | XRay Report ---
XR chest 1V portable Indication: Shortness of breath Comparison: Chest x-ray 09/20/2016 Technique: Portable AP chest was performed. Findings: The heart is borderline in size, stable. Atherosclerotic changes of the aortic knob are present. Cardiac pacemaker and NG tube remain present. Pulmonary vasculature demonstrates no specific abnormality. Hilar structures demonstrate fairly symmetric appearance. The lungs demonstrate airspace opacities most prevalent in the mid to lower left lung and some stranding in the right perihilar region. Bones and soft tissues demonstrate no evidence of acute pathology. Sclerotic lesion underlying the articular surface of the right humeral head possibly reflective of intra-articular calcification or other free body and projection, is unchanged. Impression: 1. Infectious process and/or asymmetric pulmonary edema involving the mid to lower left lung could be considered. Overall appearance of the chest is changed little since comparison. 09/21/2016 6:06 AM PROCEDURE INTERPRETED AT [facility] DEPARTMENT OF RADIOLOGY Final Report Signed by: Dr. Herbert Juarez
[2016-09-21] MEDS ORDERED: SODIUM CHLORIDE 0.9% 500 ML IV ONE (08:36)
--- NOTE | 2016-09-21 11:34 | Hospitalist Progress Note ---
Assessment and Plan (1) Septic shock Status: Acute Assessment and plan: septic shock due to small bowel obstruction- shock is resolving, lactic acid down, BP better. Continue IVF, rate increased from 75- repeated bolus this morning and will monitor UOP after it is given. cultures negative so far. Conitnue levaquin and flagyl. NGT with lots out- will need to remember this as we hydrate her. DEMETRIUS on CKD- her creatinine has started to come down, hopefully her ATN from sepsis will continue to resolve and her renal function will return to her baseline of 1-2. Begin TPN. Her COPD remains well compensated. She is NPO due to obstruction and is not receiving any of her home meds including her armor thyroid. I consulted with pharmacy and there is no conversion for armour thyroid to synthroid. TSH is WNL. Begin synthroid IV, 25mcg a day. She has a cardiomyopathy with EF of 45 at last check- repeat pending. Current Visit: Yes (2) Cardiomyopathy Problem details: The patient has a mild cardiomyopathy with a left ventricular ejection fraction of 40-45%. She underwent a cardiac ischemic screening a couple of years ago which showed no evidence of cardiac ischemia. She's not had any significant clinical change from a cardiac standpoint since that time. Status: Acute Current Visit: No (3) Diabetes mellitus Status: Chronic Current Visit: No (4) Small bowel obstruction Status: Acute Current Visit: No (5) Chronic renal insufficiency Status: Chronic Current Visit: Yes Hospitalist: Subjective Interval history: Mrs Joiner is doing better today. She is awake and comfortable and denies pain. She required some levophed overnight but has been off for several hours. Her UOP is low. Her NG output is high. Her lactic acid peaked at 10 and has now come down to 2.5. Exam - Constitutional Vitals: Period Temp Pulse Resp BP Sys/Quezada Pulse Ox Last 24 Hr 97.9 F-100.1 F 76-99 17-35 73-130/38-83 87-100 General appearance: normal weight, no acute distress - Head Head exam: Present: normocephalic, atraumatic - Eye Eye exam: Present: EOMI. Absent: scleral icterus - Respiratory Respiratory exam: Present: clear to auscultation bilaterally (a few coarse breath sounds at bases) - Cardiovascular Cardiovascular exam: Present: regular rate and rhythm - GI/Abdominal GI/Abdominal exam: Present: normal bowel sounds, soft. Absent: tenderness - Extremities Exam Extremities exam: Absent: edema - Neurological Exam Neurological exam: Present: alert, oriented X3 - Skin Skin exam: Present: warm, dry Results - Labs CBC & BMP: 09/21/16 04:50 09/21/16 04:50 Lab Results: I have reviewed the past 24 hour labs
--- NOTE | 2016-09-21 13:22 | General Surgery Progress Note ---
Assessment and Plan (1) Small bowel obstruction Status: Acute Assessment and plan: Impression: Multiple medical problems, small bowel obstruction Plan: Her abdomen appears improved. Her lactic acid level has nearly normalized after resuscitation. NG tube output with approximately 750 cc since it was placed. We will continue conservative management for now. If she fails to open up she may require operative intervention. Current Visit: No Subjective Patient reports: Present: feels better Narrative: Patient states she "feels pretty good". Her abdominal pain has nearly resolved. She is received IV fluid boluses and her urine output has been adequate. After the fluid she did have a little bit of wheezing in her chest x- ray was a bit more fluffy. She is currently denying any complaint. Exam - Constitutional Vitals: Period Temp Pulse Resp BP Sys/Quezada Pulse Ox Last 24 Hr 97.9 F-100.1 F 82-99 17-35 73-130/38-83 87-100 General appearance: no acute distress - Head Head exam: Present: normocephalic - Neck Neck exam: Present: normal inspection - Respiratory Respiratory exam: Present: clear to auscultation bilaterally - Cardiovascular Cardiovascular exam: Present: RRR - GI/Abdominal GI/Abdominal exam: Present: soft (Still with some distention though it is improved. Very minimal tenderness is elicited on abdominal exam. No peritoneal signs.) - Neurological Exam Neurological exam: Present: alert, oriented X3 Speech: Present: normal - Skin Skin exam: Present: normal color Results - Labs CBC & BMP: 09/21/16 04:50 09/21/16 04:50 Lab Results: I have reviewed the past 24 hour labs
[2016-09-21] MEDS ORDERED: SKIN HEALING OINT (AQUAPHOR) 50 GM TUBE TOP PRN (14:51)
--- NOTE | 2016-09-21 15:52 | Cardiology Progress Note ---
Stanislaw Foley April RN, am scribing for, and in the presence of, Sp Petty MD 15:52. Assessment and Plan (1) SBO (small bowel obstruction) Status: Acute Assessment and plan: Hospitalist and general surgery following. Current Visit: No (2) Elevated troponin Status: Acute Assessment and plan: This is a trivial elevation that is related to the patient's severe acute illness. I do not think there is any evidence of an acute cardiac syndrome. Current Visit: Yes (3) Dehydration Status: Acute Current Visit: Yes (4) Chronic renal insufficiency Status: Chronic Current Visit: Yes (5) Hypertension Status: Chronic Current Visit: Yes (6) Nonischemic cardiomyopathy Status: Chronic Current Visit: Yes (7) COPD (chronic obstructive pulmonary disease) Status: Chronic Current Visit: Yes (8) Diabetes mellitus Status: Chronic Current Visit: Yes (9) History of breast cancer Status: Chronic Current Visit: No (10) Status post placement of cardiac pacemaker Status: Chronic Current Visit: Yes Cardiology - PN: Subj Interval history: Ms. Oconnell is seen housed in the intensive care unit in no acute distress. She denies any chest pain, palpitations, or dizziness. She says her breathing is pretty good, oxygen is in use via nasal cannula with O2 sat 99%. She is complaining of a dry mouth. NG tube to suction. She reports her abdomen is feeling better and she is not nauseated at this point. She required Levophed during the night but that has been off since around 5 AM. Blood pressure currently 99/49. Troponin has been trivially elevated, at last check it was 0.061. Creatinine slightly improved, still elevated at 3.3. Current Medications Acetaminophen (Tylenol Supp) 325 mg RECTAL Q4H PRN PRN Reason: Fever Last Admin: 09/21/16 01:02 Dose: 325 mg Albuterol/Ipratropium (Duoneb) 3 ml RESP TX RT Q4H [facility] Last Admin: 09/21/16 10:41 Dose: 3 ml Dextrose/Water (D50) 25 gm IV PRN PRN PRN Reason: Hypoglycemia with IV access Enoxaparin Sodium (Lovenox) 30 mg SUBCUT Q24H [facility] Last Admin: 09/20/16 17:38 Dose: 30 mg Glucagon () 1 mg IM PRN PRN PRN Reason: Hypoglycemia w/o IV access Levofloxacin/Dextrose 500 mg/ (Premix) 100 mls @ 100 mls/hr IV Q48H [facility] Last Admin: 09/20/16 16:42 Dose: Not Given Metronidazole/Sodium Chloride (500 mg/ Premix) 100 mls @ 100 mls/hr IV Q6H [facility] Last Admin: 09/21/16 10:14 Dose: 100 mls/hr Sodium Chloride (Ns) 1,000 mls @ 100 mls/hr IV .Q10H [facility] Last Admin: 09/21/16 10:06 Dose: 75 mls/hr Norepinephrine Bitartrate 8 mg (/ Sodium Chloride) 250 mls @ 3.75 mls/hr IV TITRATE WOODY; 2 MCG/MIN PRN Reason: Protocol Last Titration: 09/21/16 05:18 Dose: 0 mcg/min, 0 mls/hr Insulin Human Lispro (Humalog) 0 unit SUBCUT Q6HR WOODY PRN Reason: Protocol Last Admin: 09/21/16 11:56 Dose: Not Given Levothyroxine Sodium (Synthroid Inj) 25 mcg IV DAILY@0700 [facility] Morphine Sulfate () 2 mg IV Q4H PRN PRN Reason: Pain Severe (8-10) Ondansetron HCl (Zofran Inj) 4 mg IV Q4H PRN PRN Reason: Nausea Exam (Progress Note) - Constitutional Vitals: Period Temp Pulse Resp BP Sys/Quezada Pulse Ox Last 24 Hr 97.9 F-100.1 F 82-99 17-35 73-130/38-83 87-100 General appearance: no acute distress, over weight - Head Head exam: Absent: abrasion, hematoma - Eye Eye exam: Absent: periorbital swelling, laceration to eyelids - ENT ENT exam: Present: other (NG tube) - Respiratory Respiratory exam: Present: other (Coarse breath sounds, oxygen via nasal cannula ). Absent: accessory muscle use, chest wall tenderness - Cardiovascular Cardiovascular exam: Present: regular rate and rhythm, systolic murmur - GI/Abdominal GI/Abdominal exam: Present: distended, hypoactive bowel sounds, tenderness, soft - Extremities Exam Extremities exam: Absent: calf tenderness, edema - Neurological Exam Neurological exam: Present: alert, oriented X3 - Psychiatric Psychiatric exam: Present: normal affect, normal mood - Skin Skin exam: Present: warm, dry Result/EKG - Labs CBC & BMP: 09/21/16 04:50 09/21/16 04:50 Lab Results: I have reviewed the past 24 hour labs Labs: Laboratory Results - last 24 hr 09/20/16 09/20/16 09/20/16 11:47 15:54 17:07 WBC RBC Hgb Hct MCV MCH MCHC RDW Plt Count MPV Neut % (Auto) Lymph % (Auto) [place] % (Auto) Eos % (Auto) Baso % (Auto) Neut # (Auto) Lymph # (Auto) [place] # (Auto) Eos # (Auto) Baso # (Auto) Total Counted Immature Gran % Nucleated RBC % Immature Gran # Segmented Neutrophils Band Neutrophils Lymphocytes Monocytes Metamyelocytes Myelocytes Nucleated RBCs # Platelet Estimate Hypochromasia Ovalocytes [place] Cells Morphology Comment ABG pH 7.303 L ABG pCO2 38.3 ABG pO2 59.0 L ABG HCO3 18.5 L ABG Total CO2 19.7 L ABG O2 Saturation 86.8 L ABG Base Excess -7.2 L Sodium Potassium Chloride Carbon Dioxide Anion Gap BUN Creatinine GFR Calculation BUN/Creatinine Ratio Glucose POC Glucose Calculated Osmolality Lactic Acid 10.1 H Calcium Total Creatine Kinase CK-MB (CK-2) Troponin I B-Natriuretic Peptide Free T4 1.57 H TSH 3rd Generation 2.790 09/20/16 09/20/16 09/20/16 17:07 17:51 19:25 WBC RBC Hgb Hct MCV MCH MCHC RDW Plt Count MPV Neut % (Auto) Lymph % (Auto) [place] % (Auto) Eos % (Auto) Baso % (Auto) Neut # (Auto) Lymph # (Auto) [place] # (Auto) Eos # (Auto) Baso # (Auto) Total Counted Immature Gran % Nucleated RBC % Immature Gran # Segmented Neutrophils Band Neutrophils Lymphocytes Monocytes Metamyelocytes Myelocytes Nucleated RBCs # Platelet Estimate Hypochromasia Ovalocytes [place] Cells Morphology Comment ABG pH ABG pCO2 ABG pO2 ABG HCO3 ABG Total CO2 ABG O2 Saturation ABG Base Excess Sodium Potassium Chloride Carbon Dioxide Anion Gap BUN Creatinine GFR Calculation BUN/Creatinine Ratio Glucose POC Glucose 323 H Calculated Osmolality Lactic Acid 7.8 H Calcium Total Creatine Kinase 111 D CK-MB (CK-2) 1.8 Troponin I 0.050 H D B-Natriuretic Peptide Free T4 TSH 3rd Generation 09/20/16 09/20/16 09/21/16 20:14 23:52 00:56 WBC RBC Hgb Hct MCV MCH MCHC RDW Plt Count MPV Neut % (Auto) Lymph % (Auto) [place] % (Auto) Eos % (Auto) Baso % (Auto) Neut # (Auto) Lymph # (Auto) [place] # (Auto) Eos # (Auto) Baso # (Auto) Total Counted Immature Gran % Nucleated RBC % Immature Gran # Segmented Neutrophils Band Neutrophils Lymphocytes Monocytes Metamyelocytes Myelocytes Nucleated RBCs # Platelet Estimate Hypochromasia Ovalocytes [place] Cells Morphology Comment ABG pH ABG pCO2 ABG pO2 ABG HCO3 ABG Total CO2 ABG O2 Saturation ABG Base Excess Sodium 138 Potassium 4.2 Chloride 102 Carbon Dioxide 18 L Anion Gap 22.2 H BUN 66 H Creatinine 3.40 H GFR Calculation 15 BUN/Creatinine Ratio 19.00 Glucose 290 H POC Glucose 320 H Calculated Osmolality 304.7 H Lactic Acid Calcium 7.7 L Total Creatine Kinase 216 H D CK-MB (CK-2) 2.6 Troponin I 0.061 H D B-Natriuretic Peptide Free T4 TSH 3rd Generation 09/21/16 09/21/16 09/21/16 04:50 04:50 04:50 WBC 5.9 RBC 3.70 L Hgb 10.7 L Hct 33.1 L MCV 89.5 MCH 29 MCHC 32.3 RDW 14.9 Plt Count 233 MPV 12.4 H Neut % (Auto) 69.4 Lymph % (Auto) 7.5 L [place] % (Auto) 14.9 H Eos % (Auto) 0.0 Baso % (Auto) 0.7 Neut # (Auto) 4.1 Lymph # (Auto) 0.4 L [place] # (Auto) 0.9 H Eos # (Auto) 0.0 Baso # (Auto) 0.0 Total Counted 100 Immature Gran % 7.5 Nucleated RBC % 0.0 Immature Gran # 0.44 Segmented Neutrophils 54 Band Neutrophils 15 H Lymphocytes 15 L Monocytes 10 Metamyelocytes 3 Myelocytes 3 Nucleated RBCs # 0.00 Platelet Estimate Adequate Hypochromasia 1+ Ovalocytes Slight [place] Cells Slight Morphology Comment ABG pH ABG pCO2 ABG pO2 ABG HCO3 ABG Total CO2 ABG O2 Saturation ABG Base Excess Sodium 140 Potassium 3.6 Chloride 104 Carbon Dioxide 22 Anion Gap 17.6 H BUN 70 H Creatinine 3.30 H GFR Calculation 16 BUN/Creatinine Ratio 21.00 H Glucose 206 H POC Glucose Calculated Osmolality 305.4 H Lactic Acid Calcium 8.0 L Total Creatine Kinase CK-MB (CK-2) Troponin I B-Natriuretic Peptide 430 H Free T4 TSH 3rd Generation 09/21/16 09/21/16 09/21/16 04:50 05:43 11:02 WBC RBC Hgb Hct MCV MCH MCHC RDW Plt Count MPV Neut % (Auto) Lymph % (Auto) [place] % (Auto) Eos % (Auto) Baso % (Auto) Neut # (Auto) Lymph # (Auto) [place] # (Auto) Eos # (Auto) Baso # (Auto) Total Counted Immature Gran % Nucleated RBC % Immature Gran # Segmented Neutrophils Band Neutrophils Lymphocytes Monocytes Metamyelocytes Myelocytes Nucleated RBCs # Platelet Estimate Hypochromasia Ovalocytes [place] Cells Morphology Comment ABG pH ABG pCO2 ABG pO2 ABG HCO3 ABG Total CO2 ABG O2 Saturation ABG Base Excess Sodium Potassium Chloride Carbon Dioxide Anion Gap BUN Creatinine GFR Calculation BUN/Creatinine Ratio Glucose POC Glucose 223 H 134 H Calculated Osmolality Lactic Acid 2.5 H Calcium Total Creatine Kinase CK-MB (CK-2) Troponin I B-Natriuretic Peptide Free T4 TSH 3rd Generation - Diagnostic Findings Procedure: Chest x-ray: report reviewed by me - EKG EKG results: interpreted by me EKG shows: sinus rhythm Malinda Foley Michael, MD, personally performed the services described in this documentation, ascribed by Paris Dover RN in my presence, and it is both accurate and complete [id number] .
[2016-09-21] MEDS: ENOXAPARIN 30 MG/0.3 ML SYRINGE SUBCUT SCH (16:20)
[2016-09-21] MEDS: FAT EMULSION 20% 250 ML IV SCH (16:41)
[2016-09-21] MEDS ORDERED: DEXTROSE 10% 1,000 ML IV PRN (17:00)
[2016-09-21] MEDS: TRACE ELEMENTS (5) 1 ML, MULTIVITAMIN INJ 10 ML in AMINO ACIDS/DEXT/LYTES 4.25-5% 2,000 ML IV SCH (17:31)
[2016-09-22] MEDS: NOREPINEPHRINE 8 MG in SODIUM CHLORIDE 0.9% 242 ML IV SCH (00:19)
[2016-09-22] MEDS: INSULIN LISPRO 100 UNIT/ML SUBCUT SCH ×4 (01:01→18:46)
[2016-09-22] MEDS: ALBUTEROL/IPRATROPIUM 3 ML NEB RESP TX SCH ×6 (04:02→22:51)
[2016-09-22] MEDS: metroNIDAZOLE INJ 500 MG in PREMIX 1 EACH IV SCH ×4 (04:16→21:05)
[2016-09-22 05:32] LABS: Basophils % 0.2 % (0.0-0.8); Eosinophils # 0.1 10*3/uL (0.0-0.87); Eosinophils % 0.9 % (0.00-10.9); Hemoglobin 11.5 GM/DL (12.0-16.0); Immature Granulocytes % 1.5 %; Immature Granulocytes Absolute 0.15 #; Lymphocytes # 0.8 10*3/uL (1.4-4.0); Mean Corpuscular HGB Conc 31.9 GM/DL (32-36); Mean Corpuscular Hemoglobin 29 PG (27-34); Mean Corpuscular Volume 90.2 FL (87-102); Mean Platelet Volume 12.7 FL (9.6-12.0); Monocytes # 1.2 10*3/uL (0.11-0.8); Monocytes % 11.9 % (1.7-12.7); NRBC # 0.07 10*3/uL; Neutrophils # 7.8 10*3/uL (1.4-7.4); Neutrophils % 77.5 % (38.7-73.9); Platelet Count 223 T/CUMM (130-400); Red Blood Count 3.99 MC/CUMM (3.8-5.5); White Blood Count 10.1 T/CUMM (4-12)
[2016-09-22 06:01] LABS: Band Neutrophils 3 % (0-10); Eosinophils 1 % (0-10); Lymphocytes 11 % (20-55); Segmented Neutrophils 74 % (50-85); Total Cells Counted 100
[2016-09-22 06:02] LABS: Burr Cells Slight; Hypochromasia 1+; Platelet Estimate Normal
[2016-09-22 06:12] LABS: Albumin 2.5 G/DL (3.4-5.0); Bilirubin,Total 0.4 MG/DL (0.2-1.0); Calcium 8.4 MG/DL (8.5-10.1); Potassium 3.6 MMOL/L (3.5-5.1); Total Protein 5.8 G/DL (6.4-8.3)
[2016-09-22 06:42] LABS: Magnesium 1.7 MG/DL (1.8-2.4)
[2016-09-22] MEDS ORDERED: MAGNESIUM SULF RIDER 2 GM in PREMIX 1 EACH IV ONE (08:30)
--- NOTE | 2016-09-22 09:40 | Hospitalist Progress Note ---
Assessment and Plan (1) Septic shock Status: Acute Assessment and plan: 1)septic shock- shock has resolved. She is hemodynamically stable and will continue to receive IVF- I discussed the case with Dr Allred and coordinated care with him. continue hydration with IVF plus TPN for total rate of 175/hr. On levaquin and flagyl, cultures negative so far. 2)SBO- NGT with copious output. Dr Allred monitoring and hoping to allow this to resolve on its own though she may need surgery. 3)DEMETRIUS on CKD- creatinine now in range of her baseline. acute component due to ATN from sepsis. 4)nutrition- TPN started 5)COPD- well compensated. nebs. 6)hypothyroidism- IV synthroid to replace her usual armour thyroid. TSH WNL. 7)cardiomyopathy- EF 45% on last echo, repeat pending. Current Visit: Yes (2) Cardiomyopathy Problem details: The patient has a mild cardiomyopathy with a left ventricular ejection fraction of 40-45%. She underwent a cardiac ischemic screening a couple of years ago which showed no evidence of cardiac ischemia. She's not had any significant clinical change from a cardiac standpoint since that time. Status: Acute Current Visit: No (3) Diabetes mellitus Status: Chronic Current Visit: Yes (4) Small bowel obstruction Status: Acute Current Visit: No (5) Chronic renal insufficiency Status: Chronic Current Visit: Yes Hospitalist: Subjective Interval history: Mrs Oconnell is doing a bit better this morning. Her blood pressure is stable without pressors. She continues to have a lot of NG output. She denies pain this morning or nausea. She is tolerating the NGtube. TPN started yesterday. Exam - Constitutional Vitals: Period Temp Pulse Resp BP Sys/Quezada Pulse Ox Last 24 Hr 97.0 F-98.3 F 84-107 14-30 97-159/43-75 92-100 General appearance: normal weight, no acute distress - Head Head exam: Present: normocephalic, atraumatic - Eye Eye exam: Present: EOMI. Absent: scleral icterus - Respiratory Respiratory exam: Present: clear to auscultation bilaterally - Cardiovascular Cardiovascular exam: Present: regular rate and rhythm - GI/Abdominal GI/Abdominal exam: Present: hypoactive bowel sounds, soft. Absent: tenderness - Extremities Exam Extremities exam: Absent: edema - Neurological Exam Neurological exam: Present: alert, oriented X3 - Skin Skin exam: Present: warm, dry Results - Labs CBC & BMP: 09/22/16 05:10 09/22/16 05:10 Lab Results: I have reviewed the past 24 hour labs
[2016-09-22] MEDS: SODIUM CHLORIDE 0.9% 1,000 ML IV SCH ×2 (09:48→10:01)
[2016-09-22] MEDS: LEVOTHYROXINE 100 MCG VIAL IV SCH (10:01)
[2016-09-22] MEDS: LEVOFLOXACIN INJ 500 MG in PREMIX 1 EACH IV SCH (13:15)
--- NOTE | 2016-09-22 13:22 | Cardiology Progress Note ---
IStanislaw April RN, am scribing for, and in the presence of, Sp Petty MD 13:22. Assessment and Plan (1) SBO (small bowel obstruction) Status: Acute Assessment and plan: Hospitalist and general surgery following. This is clinically improving each day. Current Visit: No (2) Elevated troponin Status: Acute Assessment and plan: This is a trivial elevation that is related to the patient's severe acute illness. I do not think there is any evidence of an acute cardiac syndrome. Current Visit: Yes (3) Dehydration Status: Acute Current Visit: Yes (4) Chronic renal insufficiency Status: Chronic Current Visit: Yes (5) Hypertension Status: Chronic Current Visit: Yes (6) Nonischemic cardiomyopathy Status: Chronic Current Visit: Yes (7) COPD (chronic obstructive pulmonary disease) Status: Chronic Current Visit: Yes (8) Diabetes mellitus Status: Chronic Current Visit: Yes (9) History of breast cancer Status: Chronic Current Visit: No (10) Status post placement of cardiac pacemaker Status: Chronic Current Visit: Yes Cardiology - PN: Subj Interval history: Pre Coder: Dr. Petty Ms. Oconnell is seen resting in bed in no acute distress. She is hoping to be moved to a regular room today. She denies any chest pain, shortness of breath, palpitations, or dizziness. Oxygen is in use via nasal cannula, O2 sat is 93%. NG tube noted to suction. She denies any abdominal discomfort or nausea at present. Her blood pressures are improved today at 122/71 currently. Her creatinine has improved to 2.5 today. Her potassium is 3.6, magnesium is 1.7. Current Medications Acetaminophen (Tylenol Supp) 325 mg RECTAL Q4H PRN PRN Reason: Fever Last Admin: 09/21/16 01:02 Dose: 325 mg Albuterol/Ipratropium (Duoneb) 3 ml RESP TX RT Q4H [facility] Last Admin: 09/22/16 07:29 Dose: 3 ml Dextrose/Water (D50) 25 gm IV PRN PRN PRN Reason: Hypoglycemia with IV access Enoxaparin Sodium (Lovenox) 30 mg SUBCUT Q24H [facility] Last Admin: 09/21/16 16:20 Dose: 30 mg Glucagon () 1 mg IM PRN PRN PRN Reason: Hypoglycemia w/o IV access Levofloxacin/Dextrose 500 mg/ (Premix) 100 mls @ 100 mls/hr IV Q48H [facility] Last Admin: 09/20/16 16:42 Dose: Not Given Metronidazole/Sodium Chloride (500 mg/ Premix) 100 mls @ 100 mls/hr IV Q6H [facility] Last Admin: 09/22/16 10:01 Dose: 100 mls/hr Sodium Chloride (Ns) 1,000 mls @ 100 mls/hr IV .Q10H [facility] Last Admin: 09/22/16 10:01 Dose: Not Given Dextrose/Water (D10) 1,000 mls @ 75 mls/hr IV .[id number] PRN PRN Reason: TPN/PPN interruption Fat Emulsion Intravenous (Intralipid 20%) 250 mls @ 25 mls/hr IV Q24H [facility] Last Infusion: 09/22/16 10:01 Dose: Infused Chromium/Copper/Manganese/Seleni/Zn 1 ml/ Multivitamins/Minerals 10 ml/ Amino Acids/Electrolytes/Dextrose 2,011 mls @ 75 mls/hr IV .Q24H [facility] PRN Reason: Protocol Last Admin: 09/21/16 17:31 Dose: 75 mls/hr Insulin Human Lispro (Humalog) 0 unit SUBCUT Q6HR [facility] PRN Reason: Protocol Last Admin: 09/22/16 06:52 Dose: 4 unit Levothyroxine Sodium (Synthroid Inj) 25 mcg IV DAILY@0700 [facility] Last Admin: 09/22/16 10:01 Dose: 25 mcg Morphine Sulfate () 2 mg IV Q4H PRN PRN Reason: Pain Severe (8-10) Ondansetron HCl (Zofran Inj) 4 mg IV Q4H PRN PRN Reason: Nausea Petrolatum (Aquaphor) 1 applic TOP PRN PRN PRN Reason: Dry Skin Exam (Progress Note) - Constitutional Vitals: Period Temp Pulse Resp BP Sys/Quezada Pulse Ox Last 24 Hr 97.0 F-98.3 F 84-107 14-31 97-163/43-77 91-100 General appearance: no acute distress, over weight - Head Head exam: Absent: abrasion, hematoma - Eye Eye exam: Absent: periorbital swelling, laceration to eyelids - ENT ENT exam: Present: other (NG tube noted) - Respiratory Respiratory exam: Present: other (Coarse breath sounds, oxygen via nasal cannula ). Absent: accessory muscle use, chest wall tenderness - Cardiovascular Cardiovascular exam: Present: regular rate and rhythm - GI/Abdominal GI/Abdominal exam: Present: distended, hypoactive bowel sounds, soft. Absent: tenderness - Extremities Exam Extremities exam: Absent: calf tenderness, edema - Neurological Exam Neurological exam: Present: alert, oriented X3 - Psychiatric Psychiatric exam: Present: normal affect, normal mood - Skin Skin exam: Present: warm, dry Result/EKG - Labs CBC & BMP: 09/22/16 05:10 09/22/16 05:10 Lab Results: I have reviewed the past 24 hour labs Labs: Laboratory Results - last 24 hr 09/21/16 09/21/16 09/22/16 04:45 11:02 00:11 WBC RBC Hgb Hct MCV MCH MCHC RDW Plt Count MPV Neut % (Auto) Lymph % (Auto) [place] % (Auto) Eos % (Auto) Baso % (Auto) Neut # (Auto) Lymph # (Auto) [place] # (Auto) Eos # (Auto) Baso # (Auto) Total Counted Immature Gran % Nucleated RBC % Immature Gran # Segmented Neutrophils Band Neutrophils Lymphocytes Monocytes Eosinophils Nucleated RBCs # Platelet Estimate Hypochromasia [place] Cells Sodium Potassium Chloride Carbon Dioxide Anion Gap BUN Creatinine GFR Calculation BUN/Creatinine Ratio Glucose POC Glucose 134 H 200 H Calculated Osmolality Lactic Acid Calcium Phosphorus Magnesium Total Bilirubin AST ALT Alkaline Phosphatase Total Protein Albumin Globulin Albumin/Globulin Ratio Prealbumin 12.4 L Triglycerides 09/22/16 09/22/16 09/22/16 05:10 05:10 05:10 WBC 10.1 D RBC 3.99 Hgb 11.5 L Hct 36.0 MCV 90.2 MCH 29 MCHC 31.9 L RDW 15.0 Plt Count 223 MPV 12.7 H Neut % (Auto) 77.5 H Lymph % (Auto) 8.0 L [place] % (Auto) 11.9 Eos % (Auto) 0.9 Baso % (Auto) 0.2 Neut # (Auto) 7.8 H Lymph # (Auto) 0.8 L [place] # (Auto) 1.2 H Eos # (Auto) 0.1 Baso # (Auto) 0.0 Total Counted 100 Immature Gran % 1.5 Nucleated RBC % 0.7 Immature Gran # 0.15 Segmented Neutrophils 74 Band Neutrophils 3 Lymphocytes 11 L Monocytes 11 Eosinophils 1 Nucleated RBCs # 0.07 Platelet Estimate Normal Hypochromasia 1+ [place] Cells Slight Sodium 143 Potassium 3.6 Chloride 107 Carbon Dioxide 21 Anion Gap 18.6 H BUN 69 H Creatinine 2.50 H GFR Calculation 22 BUN/Creatinine Ratio 27.00 H Glucose 176 H POC Glucose Calculated Osmolality 308.0 H Lactic Acid 2.4 H Calcium 8.4 L Phosphorus Magnesium Total Bilirubin 0.40 AST 38 H ALT 10 L Alkaline Phosphatase 86 Total Protein 5.8 L Albumin 2.5 L Globulin 3.3 Albumin/Globulin Ratio 0.7 L Prealbumin Triglycerides 09/22/16 09/22/16 05:10 06:45 WBC RBC Hgb Hct MCV MCH MCHC RDW Plt Count MPV Neut % (Auto) Lymph % (Auto) [place] % (Auto) Eos % (Auto) Baso % (Auto) Neut # (Auto) Lymph # (Auto) [place] # (Auto) Eos # (Auto) Baso # (Auto) Total Counted Immature Gran % Nucleated RBC % Immature Gran # Segmented Neutrophils Band Neutrophils Lymphocytes Monocytes Eosinophils Nucleated RBCs # Platelet Estimate Hypochromasia [place] Cells Sodium Potassium Chloride Carbon Dioxide Anion Gap BUN Creatinine GFR Calculation BUN/Creatinine Ratio Glucose POC Glucose 209 H Calculated Osmolality Lactic Acid Calcium Phosphorus 3.0 Magnesium 1.7 L Total Bilirubin AST ALT Alkaline Phosphatase Total Protein Albumin Globulin Albumin/Globulin Ratio Prealbumin Triglycerides 79 - EKG EKG results: interpreted by me EKG shows: sinus rhythm IMalinda Michael, MD, personally performed the services described in this documentation, ascribed by Paris Dover RN in my presence, and it is both accurate and complete .
--- NOTE | 2016-09-22 14:37 | ECHO Report ---
Ritika Oconnell Exam Date: 09/21/2016 08:37 Referring Physician: Technologist: chandni Whiteside ARDMS, RVT Age: 81 Ht (in): 65 Wt (lb): 185 Gender: F Exam [facility]: [facility] Echo Indications: Shortness of breath, Diabetes, Small bowel obstruction, Septic shock, Cardiomyopathy, unspecified BP: 82 / 41 HR: 81 Rhythm: Sinus Technical Quality: IMPRESSIONS Left ventricular ejection fraction is estimated at 35-40%. Mild concentric left ventricular hypertrophy. Mild bilateral atrial enlargement. Mild mitral annular calcification and leaflet thickening with mild mitral valve regurgitation. Mild aortic valve sclerosis without stenosis. Mild tricuspid valve regurgitation. MEASUREMENTS (Male / Female) Normal Values 2D ECHO LV Diastolic Diameter PLAX 5.2 cm 4.2 - 5.9 / 3.9 - 5.3 cm LV Systolic Diameter PLAX 3.9 cm LV Fractional Shortening PLAX 24.2 % IVS Diastolic Thickness 1.5 cm 0.6 - 1.0 / 0.6 - 0.9 cm LVPW Diastolic Thickness 1.5 cm 0.6 - 1.0 / 0.6 - 0.9 cm RV Internal Dim ED PLAX 2.9 cm Aortic Root Diameter 2.7 cm LA Systolic Diameter LX 4.3 cm 3.0 - 4.0 / 2.7 - 3.8 cm DOPPLER TR Peak Velocity 300.0 cm/s TR Peak Gradient 36.0 mmHg FINDINGS Left Ventricle Normal left ventricular cavity size. Mild concentric left ventricular hypertrophy. Left ventricular ejection fraction is estimated at 35-40%. Right Ventricle Normal right ventricular size. Catheter/pacemaker wire visualized in the right ventricle. Right Atrium The right atrium is mildly enlarged. Catheter/pacemaker wire in the right atrial cavity. Left Atrium The left atrium is mildly enlarged. Mitral Valve Mild mitral annular calcification and leaflet thickening with mild mitral valve regurgitation. Aortic Valve Mild aortic valve sclerosis without stenosis. Tricuspid Valve Morphologically normal tricuspid valve. Mild tricuspid valve regurgitation. Tricuspid regurgitation velocities suggest a PAP of 46 mmHg. Pulmonic Valve Morphologically normal pulmonic valve without significant stenosis. There is no pulmonic regurgitation. Pericardium Normal pericardium without effusion. Aorta Normal ascending aorta dimension. Sp Petty (Electronically Signed) Final Date: 22 September 2016 14:36
[2016-09-22] MEDS: FAT EMULSION 20% 250 ML IV SCH (14:44)
--- NOTE | 2016-09-22 15:38 | General Surgery Progress Note ---
Assessment and Plan (1) Small bowel obstruction Status: Acute Assessment and plan: Impression: Multiple medical problems, small bowel obstruction Plan: She appears to be improving. We will continue rehydration. Her labs are improving. Continue conservative management with NG tube. Current Visit: No Subjective Narrative: Patient states she has no pain and is feeling better. Her only complaint is of a sore throat from the NG tube. Exam - Constitutional Vitals: Period Temp Pulse Resp BP Sys/Quezada Pulse Ox Last 24 Hr 97.5 F-98.1 F 88-107 18-31 111-163/43-77 91-100 General appearance: no acute distress - Head Head exam: Present: normocephalic - ENT Mouth exam: Present: normal external inspection - Neck Neck exam: Present: normal inspection - Respiratory Respiratory exam: Present: clear to auscultation bilaterally - Cardiovascular Cardiovascular exam: Present: RRR - GI/Abdominal GI/Abdominal exam: Present: soft (No tenderness at all. She still looks mildly distended. NG tube output noted.) - Back Exam Back exam: Present: normal inspection - Neurological Exam Neurological exam: Present: alert, oriented X3 Speech: Present: normal - Skin Skin exam: Present: normal color Results - Labs CBC & BMP: 09/22/16 05:10 09/22/16 05:10 Lab Results: I have reviewed the past 24 hour labs
[2016-09-22] MEDS: ENOXAPARIN 30 MG/0.3 ML SYRINGE SUBCUT SCH (17:34)
[2016-09-22] MEDS: TRACE ELEMENTS (5) 1 ML, MULTIVITAMIN INJ 10 ML in AMINO ACIDS/DEXT/LYTES 4.25-5% 2,000 ML IV SCH (17:49)
[2016-09-23] MEDS: INSULIN LISPRO 100 UNIT/ML SUBCUT SCH ×4 (00:15→18:39)
[2016-09-23] MEDS: MORPHINE 2 MG/1 ML SYRINGE IV PRN (00:16)
[2016-09-23] MEDS: SODIUM CHLORIDE 0.9% 1,000 ML IV SCH ×3 (00:17→23:16)
[2016-09-23] MEDS: ALBUTEROL/IPRATROPIUM 3 ML NEB RESP TX SCH ×5 (03:29→19:10)
[2016-09-23] MEDS: metroNIDAZOLE INJ 500 MG in PREMIX 1 EACH IV SCH ×4 (04:11→23:15)
[2016-09-23 04:12] LABS: Basophils # 0.1 10*3/uL (0.0-0.2); Basophils % 0.6 % (0.0-0.8); Eosinophils # 0.3 10*3/uL (0.0-0.87); Eosinophils % 2.6 % (0.00-10.9); Hematocrit 32.3 VOL% (35.7-47.0); Hemoglobin 10.4 GM/DL (12.0-16.0); Immature Granulocytes % 1.6 %; Immature Granulocytes Absolute 0.19 #; Lymphocytes # 1.1 10*3/uL (1.4-4.0); Lymphocytes % 8.9 % (21.3-54.2); Mean Corpuscular HGB Conc 32.2 GM/DL (32-36); Mean Corpuscular Hemoglobin 28 PG (27-34); Mean Platelet Volume 12.5 FL (9.6-12.0); Monocytes # 1.1 10*3/uL (0.11-0.8); Neutrophils # 9.4 10*3/uL (1.4-7.4); Neutrophils % 77.3 % (38.7-73.9); Platelet Count 207 T/CUMM (130-400); Red Blood Count 3.67 MC/CUMM (3.8-5.5); Red Cell Distribution Width 15.2 % (9.3-17.3); White Blood Count 12.1 T/CUMM (4-12)
[2016-09-23 04:39] LABS: Calcium 8.7 MG/DL (8.5-10.1); Osmolality,Calculated 309.4 MOS/KG (273-304); Potassium 3.8 MMOL/L (3.5-5.1)
[2016-09-23] MEDS: LEVOTHYROXINE 100 MCG VIAL IV SCH (09:41)
--- NOTE | 2016-09-23 10:02 | Cardiology Progress Note ---
Stanislaw Foley April RN, am scribing for, and in the presence of, Sp Petty MD 10:02. Assessment and Plan (1) SBO (small bowel obstruction) Status: Acute Assessment and plan: Hospitalist and general surgery following. This is clinically improving each day. Current Visit: No (2) Elevated troponin Status: Acute Assessment and plan: This is a trivial elevation that is related to the patient's severe acute illness. I do not think there is any evidence of an acute cardiac syndrome. Current Visit: Yes (3) Dehydration Status: Acute Current Visit: Yes (4) Chronic renal insufficiency Status: Chronic Current Visit: Yes (5) Hypertension Status: Chronic Current Visit: Yes (6) Nonischemic cardiomyopathy Status: Chronic Current Visit: Yes (7) COPD (chronic obstructive pulmonary disease) Status: Chronic Current Visit: Yes (8) Diabetes mellitus Status: Chronic Current Visit: Yes (9) History of breast cancer Status: Chronic Current Visit: No (10) Status post placement of cardiac pacemaker Status: Chronic Current Visit: Yes Cardiology - PN: Subj Interval history: Preparer: Dr. Petty Ms. Oconnell is seen resting in bed in no acute distress. She denies any chest pain, shortness of breath, palpitations, or dizziness. Oxygen is in use via nasal cannula, O2 sat is 94%. NG tube noted to suction. She denies any abdominal discomfort or nausea at present. She is no longer hypotensive, pressure this morning is 146/87. Current Medications Acetaminophen (Tylenol Supp) 325 mg RECTAL Q4H PRN PRN Reason: Fever Last Admin: 09/21/16 01:02 Dose: 325 mg Albuterol/Ipratropium (Duoneb) 3 ml RESP TX RT Q4H [facility] Last Admin: 09/23/16 07:35 Dose: 3 ml Dextrose/Water (D50) 25 gm IV PRN PRN PRN Reason: Hypoglycemia with IV access Enoxaparin Sodium (Lovenox) 30 mg SUBCUT Q24H [facility] Last Admin: 09/22/16 17:34 Dose: 30 mg Glucagon () 1 mg IM PRN PRN PRN Reason: Hypoglycemia w/o IV access Levofloxacin/Dextrose 500 mg/ (Premix) 100 mls @ 100 mls/hr IV Q48H [facility] Last Infusion: 09/22/16 14:30 Dose: Infused Metronidazole/Sodium Chloride (500 mg/ Premix) 100 mls @ 100 mls/hr IV Q6H [facility] Last Infusion: 09/23/16 05:11 Dose: Infused Sodium Chloride (Ns) 1,000 mls @ 100 mls/hr IV .Q10H [facility] Last Admin: 09/23/16 00:17 Dose: 75 mls/hr Dextrose/Water (D10) 1,000 mls @ 75 mls/hr IV .[id number] PRN PRN Reason: TPN/PPN interruption Fat Emulsion Intravenous (Intralipid 20%) 250 mls @ 25 mls/hr IV Q24H [facility] Last Infusion: 09/23/16 00:44 Dose: Infused Chromium/Copper/Manganese/Seleni/Zn 1 ml/ Multivitamins/Minerals 10 ml/ Amino Acids/Electrolytes/Dextrose 2,011 mls @ 75 mls/hr IV .Q24H [facility] PRN Reason: Protocol Last Admin: 09/22/16 17:49 Dose: 75 mls/hr Insulin Human Lispro (Humalog) 0 unit SUBCUT Q6HR [facility] PRN Reason: Protocol Last Admin: 09/23/16 06:32 Dose: 2 unit Levothyroxine Sodium (Synthroid Inj) 25 mcg IV DAILY@0700 [facility] Last Admin: 09/22/16 10:01 Dose: 25 mcg Morphine Sulfate () 2 mg IV Q4H PRN PRN Reason: Pain Severe (8-10) Last Admin: 09/23/16 00:16 Dose: 2 mg Ondansetron HCl (Zofran Inj) 4 mg IV Q4H PRN PRN Reason: Nausea Last Admin: 09/23/16 00:16 Dose: 4 mg Petrolatum (Aquaphor) 1 applic TOP PRN PRN PRN Reason: Dry Skin Exam (Progress Note) - Constitutional Vitals: Period Temp Pulse Resp BP Sys/Quezada Pulse Ox Last 24 Hr 97.6 F-99.5 F 88-106 18-31 122-146/52-87 91-98 General appearance: no acute distress, over weight - Head Head exam: Absent: abrasion, hematoma - Eye Eye exam: Absent: periorbital swelling, laceration to eyelids - ENT ENT exam: Present: other (NG tube) - Respiratory Respiratory exam: Present: other (coarse breath sounds, oxygen via nasal cannula ) - Cardiovascular Cardiovascular exam: Present: regular rate and rhythm - GI/Abdominal GI/Abdominal exam: Present: normal bowel sounds, soft. Absent: distended, tenderness - Extremities Exam Extremities exam: Absent: edema - Neurological Exam Neurological exam: Present: alert, oriented X3 - Psychiatric Psychiatric exam: Present: normal affect, normal mood - Skin Skin exam: Present: warm, dry Result/EKG - Labs CBC & BMP: 09/23/16 03:57 09/23/16 03:57 Lab Results: I have reviewed the past 24 hour labs Labs: Laboratory Results - last 24 hr 09/22/16 09/22/16 09/23/16 11:02 17:33 00:10 WBC RBC Hgb Hct MCV MCH MCHC RDW Plt Count MPV Neut % (Auto) Lymph % (Auto) [place] % (Auto) Eos % (Auto) Baso % (Auto) Neut # (Auto) Lymph # (Auto) [place] # (Auto) Eos # (Auto) Baso # (Auto) Immature Gran % Nucleated RBC % Immature Gran # Nucleated RBCs # Sodium Potassium Chloride Carbon Dioxide Anion Gap BUN Creatinine GFR Calculation BUN/Creatinine Ratio Glucose POC Glucose 158 H 188 H 232 H Calculated Osmolality Calcium 09/23/16 09/23/16 09/23/16 03:57 03:57 06:05 WBC 12.1 H RBC 3.67 L Hgb 10.4 L Hct 32.3 L MCV 88.0 MCH 28 MCHC 32.2 RDW 15.2 Plt Count 207 MPV 12.5 H Neut % (Auto) 77.3 H Lymph % (Auto) 8.9 L [place] % (Auto) 9.0 Eos % (Auto) 2.6 Baso % (Auto) 0.6 Neut # (Auto) 9.4 H Lymph # (Auto) 1.1 L [place] # (Auto) 1.1 H Eos # (Auto) 0.3 Baso # (Auto) 0.1 Immature Gran % 1.6 Nucleated RBC % 0.0 Immature Gran # 0.19 Nucleated RBCs # 0.00 Sodium 147 H Potassium 3.8 Chloride 113 H Carbon Dioxide 22 Anion Gap 15.8 H BUN 54 H D Creatinine 1.50 H GFR Calculation 40 BUN/Creatinine Ratio 36.00 H Glucose 146 H POC Glucose 168 H Calculated Osmolality 309.4 H Calcium 8.7 09/23/16 07:31 WBC RBC Hgb Hct MCV MCH MCHC RDW Plt Count MPV Neut % (Auto) Lymph % (Auto) [place] % (Auto) Eos % (Auto) Baso % (Auto) Neut # (Auto) Lymph # (Auto) [place] # (Auto) Eos # (Auto) Baso # (Auto) Immature Gran % Nucleated RBC % Immature Gran # Nucleated RBCs # Sodium Potassium Chloride Carbon Dioxide Anion Gap BUN Creatinine GFR Calculation BUN/Creatinine Ratio Glucose POC Glucose 175 H Calculated Osmolality Calcium I, Sp Petty MD, personally performed the services described in this documentation, ascribed by Paris Dover RN in my presence, and it is both accurate and complete .
--- NOTE | 2016-09-23 10:20 | Hospitalist Progress Note ---
Assessment and Plan (1) Septic shock Status: Acute Assessment and plan: 1)septic shock- shock has resolved. She is hemodynamically stable. Creatinine better. UOP good. On levaquin and flagyl, cultures negative so far. 2)SBO- NGT with copious output. Dr Allred monitoring and hoping to allow this to resolve on its own though she may need surgery. allow ice chips while NGT to suction. 3)DEMETRIUS on CKD- creatinine now 1.5, in range of her baseline. acute component due to ATN from sepsis now resolving. 4)nutrition- TPN started. 5)COPD- well compensated. nebs. 6)hypothyroidism- IV synthroid to replace her usual armour thyroid. TSH WNL. 7)cardiomyopathy- EF 45% on last echo, repeat pending. She has some rales today - stop IVF and allow fluid status to equilibrate. monitor. Her sats are good and I don't want to dry her out with lasix- she has a lot of NGT output to compensate for- but she may need some if her sats drop. Current Visit: Yes (2) Cardiomyopathy Problem details: The patient has a mild cardiomyopathy with a left ventricular ejection fraction of 40-45%. She underwent a cardiac ischemic screening a couple of years ago which showed no evidence of cardiac ischemia. She's not had any significant clinical change from a cardiac standpoint since that time. Status: Acute Current Visit: No (3) Diabetes mellitus Status: Chronic Current Visit: Yes (4) Small bowel obstruction Status: Acute Current Visit: No (5) Chronic renal insufficiency Status: Chronic Current Visit: Yes Hospitalist: Subjective Interval history: Mrs Shaikh is doing a bit better today. She denies pain in her abdomen and has not vomited since NGT placed a couple of days ago. She is thirsty- she breathes through her mouth and it is very dry. She has been receiving IVF with TPN and her lungs have some crackles today. Her NGT is still putting out a lot. Exam - Constitutional Vitals: Period Temp Pulse Resp BP Sys/Quezada Pulse Ox Last 24 Hr 97.6 F-99.9 F 88-106 18-30 122-153/52-87 91-98 General appearance: normal weight, no acute distress (mouth breathing- almost snoring while awake. tongue dry.) - Eye Eye exam: Present: EOMI. Absent: scleral icterus Pupils: Present: [place] - Respiratory Respiratory exam: Present: rales (at bases bilaterally) - Cardiovascular Cardiovascular exam: Present: regular rate and rhythm - GI/Abdominal GI/Abdominal exam: Present: distended (softer than yesterday, nontender. ) - Extremities Exam Extremities exam: Absent: edema - Neurological Exam Neurological exam: Present: alert, oriented X3, CN II-XII intact. Absent: motor sensory deficit - Psychiatric Psychiatric exam: Present: normal affect - Skin Skin exam: Present: warm, dry Results - Labs CBC & BMP: 09/23/16 03:57 09/23/16 03:57 Lab Results: I have reviewed the past 24 hour labs
--- NOTE | 2016-09-23 12:21 | General Surgery Progress Note ---
Assessment and Plan (1) Small bowel obstruction Status: Acute Assessment and plan: Impression: Multiple medical problems, small bowel obstruction Plan: Patient was admitted with a small bowel obstruction and profound dehydration. She has been resuscitated. Overall she has improved but still has fairly high output from the NG tube. Her abdomen remains benign. We will continue with slow rehydration. Her creatinine has come down to 1.5. Continue NG tube. Hopefully she will respond to conservative treatment but if not may require operative intervention next week. Current Visit: No Subjective Patient reports: Present: no new complaints Narrative: No changes. She denies abdominal pain. Exam - Constitutional Vitals: Period Temp Pulse Resp BP Sys/Quezada Pulse Ox Last 24 Hr 97.6 F-99.9 F 88-106 18-30 122-153/52-87 92-98 General appearance: no acute distress - ENT Mouth exam: Present: normal external inspection - Neck Neck exam: Present: normal inspection - Respiratory Respiratory exam: Present: clear to auscultation bilaterally - Cardiovascular Cardiovascular exam: Present: RRR - GI/Abdominal GI/Abdominal exam: Present: soft (Nontender, protuberant abdomen. Distention improved.) - Back Exam Back exam: Present: normal inspection - Neurological Exam Neurological exam: Present: alert Speech: Present: normal - Skin Skin exam: Present: normal color Results - Labs CBC & BMP: 09/23/16 03:57 09/23/16 03:57 Lab Results: I have reviewed the past 24 hour labs
[2016-09-23] MEDS: FAT EMULSION 20% 250 ML IV SCH (14:55)
[2016-09-23] MEDS: ENOXAPARIN 30 MG/0.3 ML SYRINGE SUBCUT SCH (16:17)
[2016-09-23] MEDS: TRACE ELEMENTS (5) 1 ML, MULTIVITAMIN INJ 10 ML in AMINO ACIDS/DEXT/LYTES 4.25-5% 2,000 ML IV SCH (18:09)
[2016-09-24] MEDS: INSULIN LISPRO 100 UNIT/ML SUBCUT SCH ×4 (00:53→19:00)
[2016-09-24] MEDS: MORPHINE 2 MG/1 ML SYRINGE IV PRN ×2 (01:07→05:14)
[2016-09-24] MEDS ORDERED: ALBUTEROL/IPRATROPIUM 3 ML NEB RESP TX ONE (01:17)
[2016-09-24] MEDS: ALBUTEROL/IPRATROPIUM 3 ML NEB RESP TX SCH ×6 (02:21→19:47)
[2016-09-24] MEDS: metroNIDAZOLE INJ 500 MG in PREMIX 1 EACH IV SCH ×3 (04:16→16:12)
[2016-09-24] MEDS ORDERED: methylPREDNISolone SOD SUC 40 MG/1 ML VIAL ONE (04:57)
[2016-09-24] MEDS ORDERED: FUROSEMIDE 40 MG/4 ML VIAL ONE (04:58)
[2016-09-24] MEDS ORDERED: methylPREDNISolone SOD SUC 40 MG/1 ML VIAL IV ONE (05:12)
[2016-09-24] MEDS ORDERED: FUROSEMIDE 40 MG/4 ML VIAL IV ONE ×2 (05:12→08:59)
[2016-09-24 06:14] LABS: ABG Base Excess -2.2 MMOL/L (-2.5-2.5); ABG HCO3 22.9 MMOL/L (20-26); ABG Oxygen Saturation 98.4 % (95-100); ABG PCO2 40.2 MM HG (35-48); ABG PH 7.373 (7.35-7.45); ABG PO2 140.5 MM HG (80-95); ABG TCO2 24.1 MMOL/L (23-27)
[2016-09-24 06:40] LABS: Calcium 8.6 MG/DL (8.5-10.1); Osmolality,Calculated 310.4 MOS/KG (273-304); Potassium 4.1 MMOL/L (3.5-5.1)
--- NOTE | 2016-09-24 10:22 | Hospitalist Progress Note ---
Assessment and Plan (1) Septic shock Status: Acute Assessment and plan: 1)septic shock- shock has resolved. She is hemodynamically stable. Creatinine better. UOP good. On levaquin and flagyl, cultures negative so far. 2)SBO- NGT with much less out- hopefully her SBO is resolving. Dr Allred monitoring and hoping to allow this to resolve on its own though she may need surgery. allow ice chips while NGT to suction. 3)DEMETRIUS on CKD- creatinine now 1.5, in range of her baseline. acute component due to ATN from sepsis now resolving. 4)nutrition- TPN started. 5)COPD- well compensated. nebs. 6)hypothyroidism- IV synthroid to replace her usual armour thyroid. TSH WNL. 7)cardiomyopathy- EF 45% on last echo, repeat pending. 8)acute hypoxic resp failure- due to volume overload- exam improved from last night when compared to nursing eval at the time. She is comfortable. On venti mask. repeat lasix this morning. Continue TPN, IVF stopped yesterday morning. Current Visit: Yes (2) Cardiomyopathy Problem details: The patient has a mild cardiomyopathy with a left ventricular ejection fraction of 40-45%. She underwent a cardiac ischemic screening a couple of years ago which showed no evidence of cardiac ischemia. She's not had any significant clinical change from a cardiac standpoint since that time. Status: Acute Current Visit: No (3) Diabetes mellitus Status: Chronic Current Visit: Yes (4) Small bowel obstruction Status: Acute Current Visit: No (5) Chronic renal insufficiency Status: Chronic Current Visit: Yes Hospitalist: Subjective Interval history: Mrs Oconnell became more short of breath last night and was transferred to ICU. She has responded to IV lasix, morphine and has improved. She now has rhonchi on exam, but the bases sound clear. She is alert and denies pain or shortness of breath. NGT has had much less out- less than 100cc over last shift or more. Exam - Constitutional Vitals: Period Temp Pulse Resp BP Sys/Quezada Pulse Ox Last 24 Hr 97.2 F-99.6 F 32-120 17-48 126-177/63-93 83-98 General appearance: normal weight, mild distress (she is breathing as she was yesterday morning with audible "snore"though awake. ) - Eye Eye exam: Present: EOMI. Absent: scleral icterus Pupils: Present: VALENTINA - Respiratory Respiratory exam: Present: rhonchi. Absent: rales - Cardiovascular Cardiovascular exam: Present: regular rate and rhythm - GI/Abdominal GI/Abdominal exam: Present: hypoactive bowel sounds, soft - Extremities Exam Extremities exam: Absent: edema - Neurological Exam Neurological exam: Present: alert, oriented X3 - Skin Skin exam: Present: warm, dry Results - Labs CBC & BMP: 09/23/16 03:57 09/24/16 05:47 Lab Results: I have reviewed the past 24 hour labs
[2016-09-24] MEDS: LEVOTHYROXINE 100 MCG VIAL IV SCH (10:44)
--- NOTE | 2016-09-24 11:19 | Event Note ---
09/24/2016. Patient was moved to the unit due to shortness of breath possibly fluid overload. She is still receiving hyperalimentation at this time and looks like she is in respiratory distress but is reported that this is a lot of times her normal. Not sure where we are going with her at this time. Abdomen seems soft with few bowel sounds NG tube drainage is much less. Will just be supportive at this time she will be going.
--- NOTE | 2016-09-24 12:04 | Cardiology Progress Note ---
Assessment and Plan (1) SBO (small bowel obstruction) Status: Acute Assessment and plan: Hospitalist and general surgery following. This is clinically improving each day. Current Visit: No (2) Elevated troponin Status: Acute Assessment and plan: This is a trivial elevation that is related to the patient's severe acute illness. I do not think there is any evidence of an acute cardiac syndrome. She denies any chest pain. Current Visit: Yes (3) Dehydration Status: Acute Current Visit: Yes (4) Chronic renal insufficiency Status: Chronic Current Visit: Yes (5) Hypertension Status: Chronic Current Visit: Yes (6) Nonischemic cardiomyopathy Status: Chronic Assessment and plan: She has a mild cardiomyopathy. She appeared volume overloaded overnight, but has responded to IV Lasix. Current Visit: Yes (7) COPD (chronic obstructive pulmonary disease) Status: Chronic Current Visit: Yes (8) Diabetes mellitus Status: Chronic Current Visit: Yes (9) History of breast cancer Status: Chronic Current Visit: No (10) Status post placement of cardiac pacemaker Status: Chronic Current Visit: Yes Cardiology - PN: Subj Interval history: Overnight, the patient had increased respiratory distress and hypoxia. She was transferred to the intensive care unit and was given IV Lasix. Her breathing has improved since then, but she still is somewhat tachypneic. Her oxygen saturations are good. The patient denies any chest pain, palpitations, or other specific symptoms right now. She actually denies being short of breath even though she has tachypnea. Her abdominal pain has steadily improved during her hospital stay. Current Medications Acetaminophen (Tylenol Supp) 325 mg RECTAL Q4H PRN PRN Reason: Fever Last Admin: 09/21/16 01:02 Dose: 325 mg Albuterol/Ipratropium (Duoneb) 3 ml RESP TX RT Q4H [facility] Last Admin: 09/24/16 11:50 Dose: 3 ml Dextrose/Water (D50) 25 gm IV PRN PRN PRN Reason: Hypoglycemia with IV access Enoxaparin Sodium (Lovenox) 30 mg SUBCUT Q24H [facility] Last Admin: 09/23/16 16:17 Dose: 30 mg Glucagon () 1 mg IM PRN PRN PRN Reason: Hypoglycemia w/o IV access Levofloxacin/Dextrose 500 mg/ (Premix) 100 mls @ 100 mls/hr IV Q48H [facility] Last Infusion: 09/22/16 14:30 Dose: Infused Metronidazole/Sodium Chloride (500 mg/ Premix) 100 mls @ 100 mls/hr IV Q6H [facility] Last Infusion: 09/24/16 06:14 Dose: Infused Dextrose/Water (D10) 1,000 mls @ 75 mls/hr IV .[id number] PRN PRN Reason: TPN/PPN interruption Fat Emulsion Intravenous (Intralipid 20%) 250 mls @ 25 mls/hr IV Q24H [facility] Last Infusion: 09/24/16 00:15 Dose: Infused Chromium/Copper/Manganese/Seleni/Zn 1 ml/ Multivitamins/Minerals 10 ml/ Amino Acids/Electrolytes/Dextrose 2,011 mls @ 75 mls/hr IV .Q24H [facility] PRN Reason: Protocol Last Admin: 09/23/16 18:09 Dose: 75 mls/hr Insulin Human Lispro (Humalog) 0 unit SUBCUT Q6HR [facility] PRN Reason: Protocol Last Admin: 09/24/16 06:36 Dose: 4 unit Levothyroxine Sodium (Synthroid Inj) 25 mcg IV DAILY@0700 [facility] Last Admin: 09/24/16 10:44 Dose: 25 mcg Morphine Sulfate () 2 mg IV Q4H PRN PRN Reason: Pain Severe (8-10) Last Admin: 09/24/16 05:14 Dose: 2 mg Ondansetron HCl (Zofran Inj) 4 mg IV Q4H PRN PRN Reason: Nausea Last Admin: 09/23/16 00:16 Dose: 4 mg Petrolatum (Aquaphor) 1 applic TOP PRN PRN PRN Reason: Dry Skin Exam (Progress Note) - Constitutional Vitals: Period Temp Pulse Resp BP Sys/Quezada Pulse Ox Last 24 Hr 97.2 F-99.6 F 32-120 24-48 125-177/63-93 83-98 Exam: General: Frail, elderly, chronically ill-appearing HEENT: Normocephalic, atraumatic Neck: Supple Neck, Midline Trachea Cardiac: Regular rhythm, 2/6 systolic murmur, no gallop, no rub Lungs: Clear to Ascultation, No Wheeze, Rales, Rhonchi, there are some coarse upper respiratory noises Neuro: Cranial Nerve 2-12 Intact, diffuse generalized weakness Abdomen: Soft, nontender nondistended, hypoactive bowel sounds Skin: Normal color, no rash Extremities: No Clubbing, No Cyanosis, No Edema, Normal Upper Extr. Pulses Musculoskeletal: No acute abnormality noted Psychiatric: The patient is alert and oriented. The patient has a flat affect but does not appear to be anxious or depressed. Result/EKG - Labs CBC & BMP: 09/23/16 03:57 09/24/16 05:47 Lab Results: I have reviewed the past 24 hour labs Labs: Laboratory Results - last 24 hr 09/23/16 09/24/16 09/24/16 18:24 00:53 04:47 ABG pH ABG pCO2 ABG pO2 ABG HCO3 ABG Total CO2 ABG O2 Saturation ABG Base Excess Sodium Potassium Chloride Carbon Dioxide Anion Gap BUN Creatinine GFR Calculation BUN/Creatinine Ratio Glucose POC Glucose 219 H 206 H 218 H Calculated Osmolality Calcium 09/24/16 09/24/16 05:45 05:47 ABG pH 7.373 ABG pCO2 40.2 ABG pO2 140.5 H ABG HCO3 22.9 ABG Total CO2 24.1 ABG O2 Saturation 98.4 ABG Base Excess -2.2 Sodium 147 H Potassium 4.1 Chloride 114 H Carbon Dioxide 23 Anion Gap 14.1 BUN 47 H Creatinine 1.60 H GFR Calculation 37 BUN/Creatinine Ratio 29.00 H Glucose 221 H POC Glucose Calculated Osmolality 310.4 H Calcium 8.6 - EKG EKG results: interpreted by me
[2016-09-24] MEDS: LEVOFLOXACIN INJ 500 MG in PREMIX 1 EACH IV SCH (13:25)
[2016-09-24] MEDS: FAT EMULSION 20% 250 ML IV SCH (14:23)
--- NOTE | 2016-09-24 15:16 | XRay Report ---
Exam: XR chest 1V portable Indication: Shortness of breath, cardiomegaly Comparison study: Prior chest radiograph 09/21/2016 Findings: Chronic silhouette is enlarged, similar to prior. Patchy perihilar and basilar interstitial/airspace opacities are increased when compared to prior likely representing interstitial edema changes. There is no pneumothorax. Right chest pacemaker device and single wire lead. Unchanged position. The esophagogastric tube is not well-visualized but probably below the [id number] and loops within the stomach, similar to prior. Impression: Slight worsening of interstitial edema changes. Similar cardiomegaly. Stable position of the esophagogastric tube. PROCEDURE INTERPRETED AT [facility] DEPARTMENT OF RADIOLOGY Final Report Signed by: Anshu Reid
[2016-09-24] MEDS: ENOXAPARIN 30 MG/0.3 ML SYRINGE SUBCUT SCH (16:13)
[2016-09-24] MEDS ORDERED: PHENOL 1.4% THROAT SPRAY 177 ML BOTTLE PO PRN (17:41)
[2016-09-24] MEDS: TRACE ELEMENTS (5) 1 ML, MULTIVITAMIN INJ 10 ML in AMINO ACIDS/DEXT/LYTES 4.25-5% 2,000 ML IV SCH (18:59)
[2016-09-24] MEDS ORDERED: PROPOFOL 1,000 MG/100 ML BOTTLE IV ONE (21:45)
[2016-09-24] MEDS ORDERED: ETOMIDATE 20 MG/10 ML VIAL IV ONE (22:04)
[2016-09-24] MEDS ORDERED: SUCCINYLCHOLINE 200 MG/10 ML VIAL ONE (22:05)
[2016-09-24] MEDS: PROPOFOL 1,000 MG/100 ML BOTTLE IV SCH (22:05)
[2016-09-24] MEDS: PHENYLEPHRINE DRIP 40 MG/250 ML PREMIX IV SCH (22:05)
[2016-09-24] MEDS ORDERED: PHENYLEPHRINE DRIP 40 MG/250 ML PREMIX IV ONE (22:19)
--- NOTE | 2016-09-24 22:34 | XRay Report ---
Exam: XR chest 1V portable Indication: Cardiomegaly, intubation, respiratory failure Comparison study: 09/24/2016 at 1:12 AM Findings: Endotracheal tube is noted in place with the tip terminating approximately 6 cm from the ashleigh. Advancement 1-2 cm should be considered for more optimal positioning. Cardiac silhouette is enlarged, similar to prior. Esophagogastric tube again shows blood field of view. Diffuse interstitial reticular opacities likely representing underlying interstitial scarring and/or interstitial edema/infiltrates appear similar to prior. There is no pneumothorax. Right chest pacemaker device and several wire leads appear in similar position. Impression: Endotracheal tube terminates approximately 6 cm from the ashleigh. Consider advancing 1-2 cm for more optimal positioning. Otherwise, no significant change in underlying interstitial scarring/fibrosis/edema changes and cardiomegaly. PROCEDURE INTERPRETED AT [facility] DEPARTMENT OF RADIOLOGY Final Report Signed by: Anshu Reid
--- NOTE | 2016-09-24 22:42 | Event Note ---
Intubation note: Indication: acute hypoxic respiratory distress Sedation: Diprivan 100mg IV Description: The video-laryngoscope was used to visualize the vocal cords. Patient with thick secretions. 8.0 cm endotracheal tube was placed without difficulty. Confirmation of placement by CO2 detector and auscultation. Chest x-ray reviewed will advance ET tube 2 cm. No complications during intubation. O2 sats 100%
[2016-09-24 23:05] LABS: Allen Test Positive; Pt O2 Delivery Device Ventilator
[2016-09-24 23:07] LABS: ABG HCO3 24.1 MMOL/L (20-26); ABG Oxygen Saturation 99.7 % (95-100); ABG PCO2 56.1 MM HG (35-48); ABG PH 7.251 (7.35-7.45); ABG PO2 386.2 MM HG (80-95); ABG TCO2 25.8 MMOL/L (23-27)
[2016-09-25] MEDS: ALBUTEROL/IPRATROPIUM 3 ML NEB RESP TX SCH ×6 (00:19→19:49)
[2016-09-25] MEDS: INSULIN LISPRO 100 UNIT/ML SUBCUT SCH ×4 (01:00→18:53)
[2016-09-25] MEDS: metroNIDAZOLE INJ 500 MG in PREMIX 1 EACH IV SCH ×5 (01:00→22:30)
[2016-09-25 03:29] LABS: ABG Base Excess -1.8 MMOL/L (-2.5-2.5); ABG HCO3 22.9 MMOL/L (20-26); ABG Oxygen Saturation 99.5 % (95-100); ABG PCO2 44.9 MM HG (35-48); ABG PH 7.338 (7.35-7.45); ABG TCO2 21.8 MMOL/L (23-27)
[2016-09-25] MEDS: PHENYLEPHRINE DRIP 40 MG/250 ML PREMIX IV SCH ×2 (03:45→10:31)
[2016-09-25 04:39] LABS: Basophils % 0.1 % (0.0-0.8); Hematocrit 37.2 VOL% (35.7-47.0); Hemoglobin 11.3 GM/DL (12.0-16.0); Immature Granulocytes % 3.9 %; Immature Granulocytes Absolute 0.91 #; Lymphocytes # 1.4 10*3/uL (1.4-4.0); Mean Corpuscular HGB Conc 30.4 GM/DL (32-36); Mean Corpuscular Hemoglobin 28 PG (27-34); Mean Corpuscular Volume 92.3 FL (87-102); Mean Platelet Volume 12.7 FL (9.6-12.0); Monocytes # 5.1 10*3/uL (0.11-0.8); Monocytes % 21.6 % (1.7-12.7); NRBC # 0.03 10*3/uL; Neutrophils % 68.4 % (38.7-73.9); Platelet Count 232 T/CUMM (130-400); Red Blood Count 4.03 MC/CUMM (3.8-5.5); White Blood Count 23.5 T/CUMM (4-12)
[2016-09-25 04:50] LABS: Osmolality,Calculated 313.8 MOS/KG (273-304); Potassium 4.7 MMOL/L (3.5-5.1)
[2016-09-25 05:04] LABS: Band Neutrophils 1 % (0-10); Hypochromasia 1+; Lymphocytes 8 % (20-55); Platelet Estimate Normal; Segmented Neutrophils 68 % (50-85); Total Cells Counted 100
--- NOTE | 2016-09-25 08:33 | Event Note ---
09/25/2016 Patient required intubation yesterday and last night because of respiratory failure. Abdomen seems to be soft with mild distention in the upper part with no tenderness or guarding noted. Few bowel sounds present but minimal NG tube drainage. White count still up at 23,000 rest labs seem to be stable. Will maintain present support at this time. Patient appears to need a PICC line
[2016-09-25] MEDS: LEVOTHYROXINE 100 MCG VIAL IV SCH (09:00)
--- NOTE | 2016-09-25 09:48 | Hospitalist Progress Note ---
Assessment and Plan (1) Septic shock Status: Acute Assessment and plan: 1)ID- septic shock resolved. On levaquin and flagyl. WBC now 23,000. No fever. abdomen soft, no rebound or guarding or tenderness. No focal infiltrate on CXR. Urine clear. SBO clinically resolving. Recheck in am. On babak once diprivan started. Add Vanc to cover MRSA. 2)SBO- improving with very little output from NGT. KUB in am. 3)DEMETRIUS on CKD- creatinine up to 2.0 baseline around 1.6. she is on TPN and I will also give her some IVF. 4)nutrition- TPN 5)COPD- well compensated, nebs 6)hypothyroidism- on IV synthroid 7)cardiomyopathy- EF 35-40% on this echo. 8)acute hypoxic respiratory failure- when intubated she had a lot of secretions that were suctioned. She was having trouble coughing them up. Dr Slade plans bronch tomorrow. CXR with some infiltrates also report read as scarring possibly with edema. Continue suction while on vent, nebs. No cultures positive at this point. 9)access- IR consulted for central access. Current Visit: Yes (2) Cardiomyopathy Problem details: The patient has a mild cardiomyopathy with a left ventricular ejection fraction of 40-45%. She underwent a cardiac ischemic screening a couple of years ago which showed no evidence of cardiac ischemia. She's not had any significant clinical change from a cardiac standpoint since that time. Status: Acute Current Visit: No (3) Diabetes mellitus Status: Chronic Current Visit: Yes (4) Small bowel obstruction Status: Acute Current Visit: No (5) Chronic renal insufficiency Status: Chronic Current Visit: Yes Hospitalist: Subjective Interval history: Mr Oconnell was intubated last night as she appeared to tire out. She has done well since though when diprivan was started she required a small amount of babak. She opens her eyes to voice and follows commands. Exam - Constitutional Vitals: Period Temp Pulse Resp BP Sys/Quezada Pulse Ox Last 24 Hr 97.7 F-98.8 F 16-109 12-39 63-148/37-92 91-100 General appearance: normal weight, no acute distress - Eye Eye exam: Present: EOMI. Absent: scleral icterus Pupils: Present: VALENTINA - Respiratory Respiratory exam: Present: clear to auscultation bilaterally - Cardiovascular Cardiovascular exam: Present: regular rate and rhythm - GI/Abdominal GI/Abdominal exam: Present: hypoactive bowel sounds, soft (softer today, less distended. ) - Extremities Exam Extremities exam: Absent: edema Results - Labs CBC & BMP: 09/25/16 04:07 09/25/16 04:07 Lab Results: I have reviewed the past 24 hour labs
[2016-09-25] MEDS ORDERED: SODIUM CHLORIDE 0.9% 500 ML IV ONE (10:03)
[2016-09-25] MEDS: ALUMINUM/MAGNES/SIMETH MAX STR 30 ML UDCUP PER TUBE SCH ×3 (11:00→22:32)
--- NOTE | 2016-09-25 11:53 | Cardiology Progress Note ---
Assessment and Plan (1) On mechanically assisted ventilation Status: Resolved Assessment and plan: Patient had respiratory failure overnight, apparently related to problems controlling secretions. She is currently intubated and sedated. Pulmonary medicine is following a bronchoscopy may be indicated. Current Visit: No (2) SBO (small bowel obstruction) Status: Acute Assessment and plan: Hospitalist and general surgery following. Current Visit: No (3) Elevated troponin Status: Acute Assessment and plan: This is a trivial elevation that is related to the patient's severe acute illness. I do not think there is any evidence of an acute cardiac syndrome. She had denied any chest pain. Current Visit: Yes (4) Dehydration Status: Acute Current Visit: Yes (5) Chronic renal insufficiency Status: Chronic Current Visit: Yes (6) Hypertension Status: Chronic Current Visit: Yes (7) Nonischemic cardiomyopathy Status: Chronic Assessment and plan: She has a mild cardiomyopathy. Current Visit: Yes (8) COPD (chronic obstructive pulmonary disease) Status: Chronic Current Visit: Yes (9) Diabetes mellitus Status: Chronic Current Visit: Yes (10) History of breast cancer Status: Chronic Current Visit: No (11) Status post placement of cardiac pacemaker Status: Chronic Current Visit: Yes (12) Septic shock Status: Acute Current Visit: Yes Exam (Progress Note) - Constitutional Vitals: Period Temp Pulse Resp BP Sys/Quezada Pulse Ox Last 24 Hr 97.7 F-98.8 F 16-109 12-39 63-148/37-88 93-100 Exam: General: Frail, elderly, chronically ill-appearing, intubated and sedated in the intensive care unit HEENT: Normocephalic, atraumatic Neck: Supple Neck, Midline Trachea Cardiac: Regular rhythm, 2/6 systolic murmur, no gallop, no rub Lungs: Coarse breath sounds per the ventilator Neuro: Intubated and sedated on the ventilator Abdomen: Soft, nontender nondistended, hypoactive bowel sounds Skin: Normal color, no rash Extremities: No Clubbing, No Cyanosis, No Edema, Normal Upper Extr. Pulses Musculoskeletal: No acute abnormality noted Result/EKG - Labs CBC & BMP: 09/25/16 04:07 09/25/16 04:07 Lab Results: I have reviewed the past 24 hour labs Labs: Laboratory Results - last 24 hr 09/24/16 09/24/16 09/24/16 11:37 12:19 17:36 WBC RBC Hgb Hct MCV MCH MCHC RDW Plt Count MPV Neut % (Auto) Lymph % (Auto) Robeson % (Auto) Eos % (Auto) Baso % (Auto) Neut # (Auto) Lymph # (Auto) Robeson # (Auto) Eos # (Auto) Baso # (Auto) Total Counted Immature Gran % Nucleated RBC % Immature Gran # Segmented Neutrophils Band Neutrophils Lymphocytes Monocytes Nucleated RBCs # Platelet Estimate Hypochromasia ABG pH ABG pCO2 ABG pO2 ABG HCO3 ABG Total CO2 ABG O2 Saturation ABG Base Excess FiO2 Sodium Potassium Chloride Carbon Dioxide Anion Gap BUN Creatinine GFR Calculation BUN/Creatinine Ratio Glucose POC Glucose 277 H 307 H Calculated Osmolality Calcium Magnesium 2.3 09/24/16 09/25/16 09/25/16 22:55 00:16 03:10 WBC RBC Hgb Hct MCV MCH MCHC RDW Plt Count MPV Neut % (Auto) Lymph % (Auto) Robeson % (Auto) Eos % (Auto) Baso % (Auto) Neut # (Auto) Lymph # (Auto) Robeson # (Auto) Eos # (Auto) Baso # (Auto) Total Counted Immature Gran % Nucleated RBC % Immature Gran # Segmented Neutrophils Band Neutrophils Lymphocytes Monocytes Nucleated RBCs # Platelet Estimate Hypochromasia ABG pH 7.251 L 7.338 L ABG pCO2 56.1 H 44.9 ABG pO2 386.2 H 194.0 H ABG HCO3 24.1 22.9 ABG Total CO2 25.8 21.8 L ABG O2 Saturation 99.7 99.5 ABG Base Excess -4.0 L -1.8 FiO2 100.00 Sodium Potassium Chloride Carbon Dioxide Anion Gap BUN Creatinine GFR Calculation BUN/Creatinine Ratio Glucose POC Glucose 283 H Calculated Osmolality Calcium Magnesium 09/25/16 09/25/16 09/25/16 04:07 04:07 06:07 WBC 23.5 H D RBC 4.03 Hgb 11.3 L Hct 37.2 MCV 92.3 MCH 28 MCHC 30.4 L RDW 16.0 Plt Count 232 MPV 12.7 H Neut % (Auto) 68.4 Lymph % (Auto) 6.0 L Robeson % (Auto) 21.6 H Eos % (Auto) 0.0 Baso % (Auto) 0.1 Neut # (Auto) 16.0 H Lymph # (Auto) 1.4 Robeson # (Auto) 5.1 H Eos # (Auto) 0.0 Baso # (Auto) 0.0 Total Counted 100 Immature Gran % 3.9 Nucleated RBC % 0.1 Immature Gran # 0.91 Segmented Neutrophils 68 Band Neutrophils 1 Lymphocytes 8 L Monocytes 23 H Nucleated RBCs # 0.03 Platelet Estimate Normal Hypochromasia 1+ ABG pH ABG pCO2 ABG pO2 ABG HCO3 ABG Total CO2 ABG O2 Saturation ABG Base Excess FiO2 Sodium 144 Potassium 4.7 Chloride 111 H Carbon Dioxide 24 Anion Gap 13.7 BUN 63 H D Creatinine 2.00 H GFR Calculation 26 BUN/Creatinine Ratio 31.00 H Glucose 282 H POC Glucose 260 H Calculated Osmolality 313.8 H Calcium 9.0 Magnesium - EKG EKG results: interpreted by me
[2016-09-25] MEDS: VANCOMYCIN INJ 1,000 MG in SODIUM CHLORIDE 0.9% 250 ML IV SCH (12:09)
[2016-09-25] MEDS: MORPHINE 2 MG/1 ML SYRINGE IV PRN ×2 (12:30→16:00)
--- NOTE | 2016-09-25 13:24 | Pulmonology Consult Note ---
History of Present Illness Chief complaint: Pneumonia. Ventilator. SBO. DM. RF. Cardiomyopathy History of present illness: Ms. Oconnell is a 81 year old black female whom I been asked to see in pulmonary consultation for management of pulmonary problems and management of mechanical ventilation. This patient was admitted with small bowel obstruction. She had septic shock. She had an acute kidney injury. She was dehydrated and she had a mild elevation of troponins. She also had acute renal failure and hypotension. Her lactic acid was elevated 6.6 and her creatinine was 3.6. She was followed from a surgery standpoint by Dr. Henrry Avendano and also cardiology follow this patient. She had an NG tube in place.. This patient did well. She however became exhausted and on the night of 09/24/2016 she reached the point that she could not continue to breathe and she required intubation mechanical ventilation. The patient is sedated. She cannot give me a review of systems her review of systems is therefore negative. Allergies. Penicillins. Home medicines. See below Hospital medicines. See below Past history. COPD. Hypothyroidism. Cardiomyopathy with ejection fraction of 35-40% range. Chronic kidney disease with acute kidney injury. Recent septic shock. Sepsis originated from the abdomen. High blood pressure. Cardiac pacemaker. Insulin-dependent diabetes mellitus. History of asthma. Arthritis. Breast cancer diagnosed in 2014. History of abdominal surgery for bowel obstruction. Previous hernia repair. Social history. Former smoker. Does not use alcohol. Patient's primary care physician is Dr. Jacky Ramirez. She is followed from a cardiology standpoint by Dr. Sp Petty. She is followed from a renal standpoint by Dr. Tommy Menjivar. Family history. Brothers and sisters have diabetes. Chest x-ray. 09/25/2016. My interpretation. Mild cardiomegaly. Fluid in the right fissure. Atelectasis and the medial basal segment right lower lung. Infiltrate in the left upper lung and in the lingula and in the left lower lung. This obliterates the left hemidiaphragm. Endotracheal tube is in good position. ABGs. Mechanical ventilation. PH 7.338. PCO2 45. PO2 194 and bicarb is 23. Lab. Creatinine is 2.0 with a BUN of 63 with normal electrolytes. White blood cell count is elevated 23,500 with 68 segs. Platelets 232,000 H&H is 11.2/37.2. Microbiology. No positive cultures Physical exam. Vital signs. See below Face. Symmetrical. Lips are normal. Tongue is enlarged. Neck. Symmetrical kyphotic with no meningismus Lymphatics. No submandibular cervical supraclavicular adenopathy. Chest. Kyphotic. Large airway congestion. Heart sounds are distant I cannot hear a gallop Abdomen is very large. I hear some scattered occasional low pitched bowel sounds. Lower extremities. Chronic venous stasis. Skin of the face and hands show no cancerous infectious lesions. No other areas were examined. Psychiatric and possible Neurologic impossible. Impression. 1. Right lower lung, left upper lung and left lower lung pneumonia with atelectasis. This patient's had small bowel obstruction with nausea and vomiting. I suspect we have aspiration with bacterial superinfection. 2. Small bowel obstruction. Patient's had no bowel movements but she is developing bowel sounds. 3. Insulin-dependent diabetes mellitus 4. History of high blood pressure 5. COPD/asthma 6. Cardiac pacemaker 7. Breast cancer. 2014 8. Obesity 9. Former smoker 10. Acute on chronic renal failure. Plan. 1. Agree with antibiotics. Levaquin and Flagyl. Vancomycin 2. Fiberoptic bronchoscopy 3. Patient's on pressor agents to support of breath blood pressure at the present time 4. Proton pump inhibitor protocol 5. Agree with deep venous thrombophlebitis prevention protocol 6. Mechanical ventilation weaning protocol 7. Mechanical ventilation physical therapy protocol 8. Daily chest x-ray ABGs and lab 9. Doppler venograms of lower extremity 10. See orders. 11. Sputum for Gram stain culture and sensitivity Home Medications Medication Instructions Recorded Confirmed Type Allopurinol [Zyloprim] 100 mg PO DAILY 02/05/16 09/20/16 History Aspirin EC Tab 81 mg PO DAILY 02/05/16 09/20/16 History Furosemide Tab [Lasix Tab] 40 mg PO DAILY PRN 02/05/16 09/20/16 History Insulin NPH Human Isophane 10 unit SUBCUT BID 02/05/16 09/20/16 History [NovoLIN N] Letrozole [Femara] 2.5 mg PO DAILY 02/05/16 09/20/16 History Meloxicam [Mobic] 15 mg PO DAILY 02/05/16 09/20/16 History Montelukast Tab [Singulair Tab] 10 mg PO BEDTIME 02/05/16 09/20/16 History Spironolactone [Aldactone] 25 mg PO DAILY 02/05/16 09/20/16 History Thyroid [[place] Thyroid] 30 mg PO DAILY 02/05/16 09/20/16 History Tiotropium Inhalation [Spiriva 18 mcg INH DAILY 02/05/16 09/20/16 History Handihaler] HYDROcodone/ACETAMIN 10-325 [Flushing 1 tablet PO Q6H PRN #20 tablet 02/10/1609/20 Rx 10-325] Albuterol Inhaler [Proventil 2 puff INH Q4H PRN 07/27/16 09/20/16 History Inhaler] Linaclotide [Linzess] 145 mcg PO AC BREAKFAST 07/27/16 09/20/16 History Albuterol Sulfate [Proair HFA] 2 puff INH Q4H PRN 09/20/16 09/20/16 History Bisacodyl Tab [Dulcolax Tab] 10 mg PO DAILY 09/20/16 09/20/16 History Metoclopramide Tab [Reglan Tab] 5 mg PO BIDAC 09/20/16 09/20/16 History Allergies Allergy/AdvReac Type Severity Reaction Status Date / Time Penicillins Allergy ANAPHYLAXIS Verified 09/20/16 11:00 Exam (Pulmonay) H&P - Constitutional Vitals: Period Temp Pulse Resp BP Sys/Quezada Pulse Ox Last 24 Hr 97.7 F-98.8 F 16-109 12-39 63-148/37-88 93-100 Medical,Surgical,& Family Hx - Medical History Cardio: History of: CHF, Hypertension, Pacemaker Endocrine: History of: Diabetes Mellitus (IDDM), Diabetes Mellitus (NIDDM), Thyroid Disorder Respiratory: History of: Asthma, COPD Gastrointestinal: History of: Bowel Obstruction Musculoskeletal: History of: Musculoskeletal Problems (right knee arthritis) Reproductive: History of: Breast Cancer (2015) Other: History of: Cancer - Surgical History Abdominal Surgeries: Surgical HX of: Abdominal Surgery (bowel obstruction surgery), Hernia Repair - Family History Family History: Reports;: Family Diabetes (brothers and sisters) - Social History Smoking Status: Former smoker (patient reports she last smoked approximately 2 months ago) Frequency of Alcohol Use: None Type of Drug Use: None Results - Labs CBC & BMP: 09/25/16 04:07 09/25/16 04:07
[2016-09-25] MEDS: FAT EMULSION 20% 250 ML IV SCH (14:00)
--- NOTE | 2016-09-25 16:15 | Ultrasound Report ---
Indication: Chronic venous stasis Duplex scan of the bilateral lower extremity veins Technique: Duplex scan of the bilateral lower extremity veins using B-mode/grayscale imaging and Doppler spectral analysis and color flow Findings: Major venous structures of the bilateral lower extremity demonstrate a normal course and caliber. There is no evidence of deep vein thrombosis. No abnormal intrinsic echogenic lesions are demonstrated in the scanned blood vessels. Veins demonstrate good compressibility with normal color flow study and spectral analysis. Right popliteal fossa demonstrates a heterogeneous hypoechoic region most compatible with a Maxwell's cyst measuring 6.5 x 1.3 x 3.3 cm maximum dimensions with no internal blood flow on color Doppler. Impression: Unremarkable duplex imaging of the bilateral lower extremity veins. No evidence of DVT PROCEDURE INTERPRETED AT [facility] DEPARTMENT OF RADIOLOGY Final Report Signed by: Anshu Reid
[2016-09-25] MEDS: ENOXAPARIN 30 MG/0.3 ML SYRINGE SUBCUT SCH (16:23)
[2016-09-25] MEDS: LORazepam 2 MG/1 ML VIAL IV PRN ×2 (16:44→22:30)
[2016-09-25] MEDS: TRACE ELEMENTS (5) 1 ML, MULTIVITAMIN INJ 10 ML in AMINO ACIDS/DEXT/LYTES 4.25-5% 2,000 ML IV SCH (17:01)
[2016-09-26] MEDS: PROPOFOL 1,000 MG/100 ML BOTTLE IV SCH (00:23)
[2016-09-26] MEDS: ALBUTEROL/IPRATROPIUM 3 ML NEB RESP TX SCH ×7 (00:31→23:21)
[2016-09-26] MEDS: INSULIN LISPRO 100 UNIT/ML SUBCUT SCH ×4 (02:12→19:01)
[2016-09-26] MEDS: LORazepam 2 MG/1 ML VIAL IV PRN ×3 (02:13→15:30)
[2016-09-26] MEDS: MORPHINE 2 MG/1 ML SYRINGE IV PRN ×2 (03:20→07:37)
[2016-09-26 04:10] LABS: Allen Test Positive; Pt O2 Delivery Device Ventilator
[2016-09-26 04:13] LABS: ABG Base Excess -1.7 MMOL/L (-2.5-2.5); ABG Oxygen Saturation 99.2 % (95-100); ABG PCO2 37.2 MM HG (35-48); ABG PH 7.395 (7.35-7.45); ABG TCO2 20.7 MMOL/L (23-27)
[2016-09-26] MEDS: ALUMINUM/MAGNES/SIMETH MAX STR 30 ML UDCUP PER TUBE SCH ×4 (04:57→22:35)
[2016-09-26] MEDS: PHENYLEPHRINE DRIP 40 MG/250 ML PREMIX IV SCH ×2 (04:57→22:45)
[2016-09-26] MEDS: metroNIDAZOLE INJ 500 MG in PREMIX 1 EACH IV SCH ×2 (04:58→09:33)
[2016-09-26 05:20] LABS: Basophils # 0.1 10*3/uL (0.0-0.2); Basophils % 0.5 % (0.0-0.8); Eosinophils # 0.6 10*3/uL (0.0-0.87); Eosinophils % 2.4 % (0.00-10.9); Hemoglobin 9.9 GM/DL (12.0-16.0); Immature Granulocytes % 2.7 %; Immature Granulocytes Absolute 0.69 #; Lymphocytes # 1.5 10*3/uL (1.4-4.0); Lymphocytes % 5.8 % (21.3-54.2); Mean Corpuscular HGB Conc 31.9 GM/DL (32-36); Mean Corpuscular Hemoglobin 28 PG (27-34); Mean Corpuscular Volume 88.1 FL (87-102); Mean Platelet Volume 12.5 FL (9.6-12.0); Monocytes # 2.5 10*3/uL (0.11-0.8); Monocytes % 9.6 % (1.7-12.7); NRBC # 0.03 10*3/uL; Neutrophils # 20.6 10*3/uL (1.4-7.4); Platelet Count 224 T/CUMM (130-400); Red Blood Count 3.52 MC/CUMM (3.8-5.5); Red Cell Distribution Width 15.9 % (9.3-17.3)
[2016-09-26 05:44] LABS: Atypical Lymphocytes Few; Eosinophils 5 % (0-10); Lymphocytes 5 % (20-55); Total Cells Counted 100
[2016-09-26 05:46] LABS: Platelet Estimate Normal; Segmented Neutrophils 85 % (50-85)
[2016-09-26 06:21] LABS: Calcium 8.4 MG/DL (8.5-10.1); Magnesium 2.6 MG/DL (1.8-2.4); Osmolality,Calculated 317.6 MOS/KG (273-304); Phosphorous 2.2 MG/DL (2.5-4.9); Potassium 4.4 MMOL/L (3.5-5.1); Prealbumin 7.9 MG/DL (20-40)
--- NOTE | 2016-09-26 07:41 | XRay Report ---
XR abdomen 1V Indication: SBO Comparison: Abdominal x-ray dated March 18, 2016 Technique: Frontal views of the abdomen Findings: Nonweighted enteric tube tip projects over the mid stomach. Surgical clips noted within the right upper quadrant of the abdomen. Nonspecific nonobstructive bowel gas pattern. Calcifications again project over the pelvis measuring up to 3.3 cm suggestive of calcified fibroids. Atelectatic calcifications present. Visualized osseous and surrounding soft tissue structures appear grossly unchanged. Degenerative change and levoconvex curvature of the lumbar spine. IMPRESSION: No acute abnormality demonstrated. PROCEDURE INTERPRETED AT [facility] DEPARTMENT OF RADIOLOGY Final Report Signed by: Dr Osman Willoughby
--- NOTE | 2016-09-26 08:05 | XRay Report ---
XR chest 1V portable Indication: Respiratory failure on ventilator Comparison: Chest x-ray dated September 24, 2016 Technique: Single frontal view of the chest. Findings: Continued cardiomegaly. Endotracheal tube projects approximately 1 cm above the ashleigh. Cardiac pacemaker apparatus again demonstrated. Grossly unchanged interstitial and scattered small pulmonary opacities. Visualized osseous and surrounding soft tissue structures appear grossly unchanged. IMPRESSION: As above. PROCEDURE INTERPRETED AT [facility] DEPARTMENT OF RADIOLOGY Final Report Signed by: Dr Osman Willoughby
--- NOTE | 2016-09-26 08:52 | Event Note ---
In hospital diagnostic and therapeutic fiberoptic bronchoscopy. Bilateral washings were taken from the right upper lung, right middle lung, the right lower lung, left upper lung and left lower lung. Specimens were sent for cytology, Gram stain, bacterial culture, fungal stains and culture, AFB stains and cultures. This is 81-year-old black female who is admitted with small bowel obstruction. She was treated conservatively with an NG tube. She went on to develop right lower lung and left lower lung infiltrates with atelectasis. She eventually required intubation mechanical ventilation. Her cough is ineffective. For these reasons she is evaluated with fiberoptic bronchoscopy. The endotracheal tube is in good position. The distal trachea is slightly erythematous. The ashleigh is sharp Left mainstem bronchus left upper lung left lower lung contain secretions. There was underlying erythematous slightly friable bronchitis in the left upper lung and left lower lung. This had the appearance of a mild gastric acid injury. The the left upper lung and left lower lung were global lavaged endobronchially and alveolar the until clear. The right mainstem contain a moderate amount of secretions that extended into the right upper lung the right middle lung and right lower lung. These were suctioned endobronchially and from the alveoli with lavage. There was mild erosive friable bronchitis in the right lower lung. This had the appearance of a very mild aspiration injury. The patient tolerated procedure well there were no complications Impression. 1. Bibasilar pulmonary infiltrates per infiltrates. Suspect this will be aspiration with bacterial superinfection 2. Mechanical ventilation secondary respiratory failure 3. Ineffective cough 4. Retained secretions 5. Probable mild bilateral gastric acid injury 6. See above Plan. 1. Check bronchoscopy specimens 2. Follow-up chest x-ray.
[2016-09-26] MEDS: LEVOTHYROXINE 100 MCG VIAL IV SCH (09:16)
--- NOTE | 2016-09-26 09:48 | Hospitalist Progress Note ---
Assessment and Plan (1) Septic shock Status: Acute Assessment and plan: 1)aspiration pneumonia- evidence of aspiration seen at bronch and cultures sent. on Vanc day 2 and levaquin and flagyl day 7. change flagyl for clinda. tolerating vent and comfortable. Will nearly off. WBC now 26,000. 2)SBO- exam, XR, NGT ourput improved. Dr Allred to see today, may begin tube feeds. 3)DEMETRIUS on CKD- creatinine baseline is 1.6. Today 2.1 4)nutrition- TPN 5)COPD- no wheezes, on nebs. 6)hypothyroidism- on IV synthroid, takes armor thyroid at home. 7)cardiomyopathy- EF 35-40% this admission. Some pulmonary edema a couple of days ago, diuresed. 8)acute hypoxic respiratory failure- on vent, continue suctioning prn. cause is fatigue, edema and aspiration. Current Visit: Yes (2) Cardiomyopathy Problem details: The patient has a mild cardiomyopathy with a left ventricular ejection fraction of 40-45%. She underwent a cardiac ischemic screening a couple of years ago which showed no evidence of cardiac ischemia. She's not had any significant clinical change from a cardiac standpoint since that time. Status: Acute Current Visit: No (3) Diabetes mellitus Status: Chronic Current Visit: Yes (4) Small bowel obstruction Status: Acute Current Visit: No (5) Chronic renal insufficiency Status: Chronic Current Visit: Yes Hospitalist: Subjective Interval history: Mrs Oconnell is stable on vent. She is off Diprivanan dsedated with morphine and ativan and remains comfortable. She had 300 out of her NGT for last 24 hours, and her abdomen is softer with bowel sounds. Exam - Constitutional Vitals: Period Temp Pulse Resp BP Sys/Quezada Pulse Ox Last 24 Hr 97.5 F-98.8 F 76-115 12-29 71-147/33-90 97-100 General appearance: normal weight, no acute distress - Eye Eye exam: Present: EOMI. Absent: scleral icterus - Respiratory Respiratory exam: Present: rales (at bases) - Cardiovascular Cardiovascular exam: Present: regular rate and rhythm - GI/Abdominal GI/Abdominal exam: Present: hypoactive bowel sounds, soft. Absent: tenderness - Extremities Exam Extremities exam: Absent: edema - Neurological Exam Neurological exam: Present: other (sedated and sleeping but responds to voice, cooperative) - Skin Skin exam: Present: warm, dry Results - Labs CBC & BMP: 09/26/16 05:06 09/26/16 05:06 Lab Results: I have reviewed the past 24 hour labs
--- NOTE | 2016-09-26 10:00 | General Surgery Progress Note ---
Assessment and Plan (1) SBO (small bowel obstruction) Status: Acute Assessment and plan: Appears to be resolving. Increased NG output in past 24 hrs but Abd XR and PE without significant evidence of obstruction. Repeat CT scan with oral contrast. Monitor. Current Visit: No Subjective Patient reports: Present: other (Patient is intubated and sedated. No family at bedside.) Exam - Constitutional Vitals: Period Temp Pulse Resp BP Sys/Quezada Pulse Ox Last 24 Hr 97.5 F-98.8 F 76-115 12-29 71-147/33-90 97-100 General appearance: morbidly obese - ENT ENT exam: Present: other (NGT in place with bilious output - minimal in tubing at this time) Mouth exam: Present: other (ET tube in place) - Respiratory Respiratory exam: Present: other (coarse breathsounds b/l) - Cardiovascular Cardiovascular exam: Present: RRR - GI/Abdominal GI/Abdominal exam: Present: hypoactive bowel sounds, other (obese, soft. No evidence of tenderness or distension. No tympany. ) - Extremities Exam Extremities exam: Absent: calf tenderness, edema - Neurological Exam Neurological exam: Present: other (Sedated) - Skin Skin exam: Present: normal color, warm Results - Labs CBC & BMP: 09/26/16 05:06 09/26/16 05:06 - Diagnostic Findings Procedure: KUB x-ray: image reviewed by me, report reviewed by me
[2016-09-26] MEDS: CLINDAMYCIN INJ 600 MG in PREMIX 1 EACH IV SCH ×3 (10:39→22:42)
[2016-09-26] MEDS: INSULIN GLARGINE 100 UNIT/ML SUBCUT SCH (10:39)
--- NOTE | 2016-09-26 10:53 | Pulmonology Progress Note ---
Pulmonary - PN: Subj Interval history: This 81-year-old black female whom I saw in pulmonary consultation on 09/25/2016. I was asked to manage her pulmonary problems and her mechanical ventilation. Patient originally been admitted with small bowel obstruction and septic shock. She also had acute kidney injury and she was dehydrated and she had mild elevation of her troponins. She had acute renal failure with hypotension and her lactic acids were elevated 6.6 and creatinine was 3.6. Dr. Henrry Moore saw in surgery consultation she was treated this conservatively. From pulmonary standpoint she became exhausted on the night of 09/24/2016 and reached a point that she could not continue to breathe and she required intubation mechanical ventilation. My impressions are. 1. Right lower lung, left upper lung and left lower lung pneumonia with atelectasis. This patient's had small bowel obstruction with nausea and vomiting. I suspect we have aspiration with bacterial superinfection. 2. Small bowel obstruction. Patient's had no bowel movements but she is developing bowel sounds. 3. Insulin-dependent diabetes mellitus 4. History of high blood pressure 5. COPD/asthma 6. Cardiac pacemaker 7. Breast cancer. 2014 8. Obesity 9. Former smoker 10. Acute on chronic renal failure. 09/26/2016. Earlier today this patient was evaluated with fiberoptic bronchoscopy. She had retained secretions bilaterally. She had evidence of mild gastric acid injury which is most prominent in the left upper lung and left lower lung and right lower lung. Multiple specimens were sent for cultures. She tolerated procedure well. Pre-bronchoscopy chest x-ray showed a fairly dense left lower lung infiltrate. There are scattered infiltrates in the right upper and right lower lung. There are no positive cultures. Sputum Gram stain from 09/25/2016 showed many gram-positive cocci. On mechanical ventilation with FiO2 of 50% ABGs show pH 7.395, PCO2 37, PO2 157 and bicarbonate 23. Electrolytes are close to normal. Creatinine is 2.10 with a BUN of 74. White count is elevated at 26,000 with 79 segs 6 lymphs and 10 monos. H&H is dropped to 9.9/31.0 and platelets are 224,000. Glucoses are elevated. Doppler venogram showed no evidence of deep venous thrombophlebitis. This patient's on stage to the weaning protocol. She was tried on a T-tube for short time and did not terrible. Will continue present protocols and make sure she is also on physical therapy protocol. Physical exam. Vital signs. See below Neurologic. Patient sedated but she appears to move all fours. Face is symmetrical. Neck is symmetrical no meningismus Chest reveals prominent large airway congestion Heart no gallop Abdomen rare bowel sounds Lower extremities. Chronic venous stasis. No evidence of deep venous thrombophlebitis. Lymphatics. No submandibular cervical supraclavicular adenopathy. Skin the face and hands show no cancerous infectious lesions. No other areas of skin were examined The remainder of the physical exam is negative Plan. 09/25/2006 1. Agree with antibiotics. Levaquin and Flagyl. Vancomycin 2. Fiberoptic bronchoscopy 3. Patient's on pressor agents to support of breath blood pressure at the present time 4. Proton pump inhibitor protocol 5. Agree with deep venous thrombophlebitis prevention protocol 6. Mechanical ventilation weaning protocol 7. Mechanical ventilation physical therapy protocol 8. Daily chest x-ray ABGs and lab 9. Doppler venograms of lower extremity 10. See orders. 11. Sputum for Gram stain culture and sensitivity 09/26/2016. 1. See today's note above. 2. Check bronchoscopy specimen 3. All applicable protocols Home Medications Exam (Progress Note) - Constitutional Vitals: Period Temp Pulse Resp BP Sys/Quezada Pulse Ox Last 24 Hr 97.5 F-98.8 F 76-115 12-30 71-147/33-90 95-100 Results - Labs CBC & BMP: 09/26/16 05:06 09/26/16 05:06
[2016-09-26] MEDS: DESITIN 4OZ/NYSTATIN 15 GRAM MIXTURE PASTE TOP SCH ×2 (13:34→22:44)
[2016-09-26] MEDS: LEVOFLOXACIN INJ 500 MG in PREMIX 1 EACH IV SCH (13:34)
[2016-09-26] MEDS: FAT EMULSION 20% 250 ML IV SCH (14:33)
--- NOTE | 2016-09-26 16:49 | CT Report ---
History: Small bowel obstruction Date: 09/26/2016 Study: CT abdomen and pelvis with oral contrast and no IV contrast Comparison exam: September 20, 2016 Technique: Spiral CT sections were obtained from the lung bases to the pubic symphysis following oral contrast and without IV contrast. The CT exam was performed using one or more of the following dose reduction techniques: Automated exposure control, adjustment of the mA and/or kV according to patient size, or use of iterative reconstruction technique. CT abdomen: There is mild dependent atelectasis in the lung bases which is slightly increased compared to the previous study. There is a small left-sided pleural effusion which is increased. There is no evidence of pneumoperitoneum. A nasogastric tube is positioned with its tip at the distal stomach body level. Currently, there is no disproportionate small bowel dilatation to suggest significant residual small bowel obstruction. Contrast material does reach the cecum. There is nonopacified stool in the wall of the cecum and proximal ascending colon which limits evaluation for underlying colon mass. The gallbladder is surgically absent. The liver, pancreas, bile ducts, spleen, adrenal glands, and kidneys are unchanged. There is no radiopaque renal or ureteral stone. There is no hydronephrosis. There is no aneurysm of the moderately calcified abdominal aorta. There is no significant free fluid in the upper abdomen. There is moderate degenerative disc disease of the spine. CT pelvis: There are partially calcified fibroids in the uterus. A Hawthorne catheter is positioned with its tip in the urinary bladder. Impression: There is no persistent small bowel dilatation to suggest residual mechanical obstruction of significance at this time. A nasogastric tube is well-positioned. There is increased mild bibasilar atelectasis and mild left pleural effusion compared to the previous study. No adverse interval change otherwise PROCEDURE INTERPRETED AT [facility] DEPARTMENT OF RADIOLOGY Final Report Signed by: Dr. Roxy Gomez
[2016-09-26] MEDS: ENOXAPARIN 30 MG/0.3 ML SYRINGE SUBCUT SCH (16:58)
[2016-09-26] MEDS: TRACE ELEMENTS (5) 1 ML, MULTIVITAMIN INJ 10 ML in AMINO ACIDS/DEXT/LYTES 4.25-5% 2,000 ML IV SCH (17:17)
--- NOTE | 2016-09-26 17:29 | Post Interventional Procedure ---
Pre-op diagnosis: septic shock, small bowel obstruction Post-op diagnosis: same Procedure: central venous catheter placement Contrast: none Flouroscopy: none Radiologist: Anshu Reid Anesthesia: local Specimens: none sent Estimated blood loss: none Complications: none Condition: stable Description/Findings: right IJ 7 Fr triple lumen catheter placement done and catheter is ready to use. Assessment and Plan - Time spent with patient Time spent with patient: Less than 30 minutes
--- NOTE | 2016-09-26 17:36 | XRay Report ---
XR chest post procedure, IR cvc insert nt >5, US guide vascular access Central Line placement using ultrasound guidance Ultrasound of the right neck Clinical Information: Small bowel obstruction, septic shock. Central venous access is requested. Physician[s]: Dr. Reid Procedure: The patient was advised of the benefits, risks, and alternatives of the procedure and informed consent was obtained. A time out was performed with verification of the patient's name, MRN, site of procedure, and type of procedure to be performed. The patient was positioned in the supine position on the angiographic table. The site was prepped and draped in the usual sterile fashion. Local anesthesia only was used for the procedure. A process line operator radiograph reveals endotracheal, esophagogastric tube and right-sided pacemaker device with wire lead. The neck and anterior chest wall were anesthetized with lidocaine. The right internal jugular vein was accessed using a microintroducer needle via a lateral approach with ultrasound guidance. Ultrasound image capture of vascular access was obtained for the patient's permanent record. A 0.018" cope wire was advanced into the superior vena cava, the needle was removed and a microintroducer sheath was placed. An Amplatz wire was then passed into the inferior vena cava. An incision was made at the puncture site using a scalpel. The tract was serially dilated over the wire. A 7 [place] triple lumen 16 cm Arrow central venous catheter tip position was confirmed with postprocedural chest radiograph. The ports aspirate and flush freely. The catheter was sutured in place using 3-0 silk and covered with a sterile dressing. The patient tolerated the procedure well and was returned to the PRU in stable condition. EBL: < 5 mL. Complications: None. Total Fluoroscopy Time: 0. Total number of images for the procedure: 2 Conclusion: Successful placement of a triple lumen central venous catheter via the right internal jugular vein. The catheter is ready for immediate use. PROCEDURE INTERPRETED AT [facility] [place] DEPARTMENT OF RADIOLOGY Final Report Signed by: Anshu Reid
--- NOTE | 2016-09-26 20:23 | Cardiology Progress Note ---
Stanislaw Foley April RN, am scribing for, and in the presence of, Kedar Young MD 20:23. Assessment and Plan (1) Elevated troponin Status: Acute Assessment and plan: 09/26/16: No evidence overt overt ischemia Had deterioration over the weekend and had to be intubated Dr. Quiros did bronchoscopy today and found some lung injury due to gastric reflux Continue to support Watch for any signs or symptoms of ischemia Initial rise in troponins could have been due to sepsis. Prognosis remains guarded. Current Visit: Yes (2) SBO (small bowel obstruction) Status: Acute Assessment and plan: Hospitalist and general surgery following. This is clinically improving each day. Current Visit: No (3) Dehydration Status: Acute Current Visit: Yes (4) Chronic renal insufficiency Status: Chronic Current Visit: Yes (5) Hypertension Status: Chronic Current Visit: Yes (6) Nonischemic cardiomyopathy Status: Chronic Current Visit: Yes (7) COPD (chronic obstructive pulmonary disease) Status: Chronic Current Visit: Yes (8) Diabetes mellitus Status: Chronic Current Visit: Yes (9) History of breast cancer Status: Chronic Current Visit: No (10) Status post placement of cardiac pacemaker Status: Chronic Current Visit: Yes (11) On mechanically assisted ventilation Status: Acute Current Visit: Yes Cardiology - PN: Subj Interval history: PYROGLAZER: DR. BRAVO PCP: DR. MINA ROBLES ON AWAKE COUNSELOR: DR. ABBE CHAWLA Ms. Oconnell is an 81-year-old female with a history of hypertension, diabetes, nonischemic cardiomyopathy, pacemaker, chronic left bundle branch block, hypothyroidism, COPD, chronic renal insufficiency, obesity, sleep apnea, and breast cancer. She presented to the emergency department last week with a two- week history of progressive shortness of breath. The night before she had became nauseated and vomited all night. She was hypotensive on arrival IV fluid was given and that improved. NG tube was placed and drained orange tinged fluid. She underwent a CT scan of the abdomen which showed a transition point which seems to lie along the anterior abdominal wall to the right of midline and appearance suggesting abdominal wall adhesion. There was also noted to be wall thickening within the second portion of the duodenum and appearance of lung parenchyma which may in part reflect infectious process superimposed on chronic interstitial disease within the left lung base. On 02/05/16, she had an incarcerated hernia which caused a small bowel obstruction for which she underwent repair. She was admitted to the hospitalist and general surgery saw her in consultation. We were consulted to see her due to an elevated troponin of 0.063. These numbers never increased and was felt to be a trivial finding with no evidence of acute coronary syndrome. Her kidney function was also elevated, with a creatinine of 3.60 on admission. Her small bowel obstruction has improved during her stay, over the weekend she required intubation due to respiratory failure. Ms. Ocnonell is seen today housed in the intensive care unit. She is intubated on mechanical ventilation at 100% oxygen. She still has her NG tube. She is resting in bed and does not respond to verbal stimuli. She is scheduled for bronchoscope with Dr. Slade today. Symptomatic currently shows sinus rhythm with heart rate of 9080s. She has Will-Synephrine infusing currently, blood pressure 142/77. Hematocrit was 37.2 yesterday, it has dropped to 31.0 today. Exam (Progress Note) - Constitutional Vitals: Period Temp Pulse Resp BP Sys/Quezada Pulse Ox Last 24 Hr 97.5 F-98.8 F 76-101 12-29 71-134/33-90 97-100 General appearance: other (Ill-appearing, intubated on mechanical ventilation) - Head Head exam: Absent: abrasion, hematoma - Eye Eye exam: Absent: periorbital swelling, laceration to eyelids - ENT ENT exam: Present: other (ET tube, NG tube) - Respiratory Respiratory exam: Present: other (Coarse breath sounds, intubated on mechanical ventilation) - Cardiovascular Cardiovascular exam: Present: regular rate and rhythm. Absent: rubs - GI/Abdominal GI/Abdominal exam: Present: hypoactive bowel sounds, soft - Extremities Exam Extremities exam: Absent: edema - Neurological Exam Neurological exam: Present: other (Does not respond to verbal stimuli) - Skin Skin exam: Present: warm, dry Result/EKG - Labs CBC & BMP: 09/26/16 05:06 09/26/16 05:06 Lab Results: I have reviewed the past 24 hour labs Labs: Laboratory Results - last 24 hr 09/25/16 09/25/16 09/25/16 12:29 13:42 18:06 WBC RBC Hgb Hct MCV MCH MCHC RDW Plt Count MPV Neut % (Auto) Lymph % (Auto) Rincon % (Auto) Eos % (Auto) Baso % (Auto) Neut # (Auto) Lymph # (Auto) Rincon # (Auto) Eos # (Auto) Baso # (Auto) Total Counted Immature Gran % Nucleated RBC % Immature Gran # Segmented Neutrophils Lymphocytes Monocytes Eosinophils Nucleated RBCs # Atypical Lymphocytes Platelet Estimate ABG pH ABG pCO2 ABG pO2 ABG HCO3 ABG Total CO2 ABG O2 Saturation ABG Base Excess FiO2 Sodium Potassium Chloride Carbon Dioxide Anion Gap BUN Creatinine GFR Calculation BUN/Creatinine Ratio Glucose POC Glucose 293 H 289 H Calculated Osmolality Calcium Phosphorus Magnesium Prealbumin Triglycerides Cold Agglutinin Screen Negative 09/26/16 09/26/16 09/26/16 01:23 03:10 05:06 WBC RBC Hgb Hct MCV MCH MCHC RDW Plt Count MPV Neut % (Auto) Lymph % (Auto) Rincon % (Auto) Eos % (Auto) Baso % (Auto) Neut # (Auto) Lymph # (Auto) Rincon # (Auto) Eos # (Auto) Baso # (Auto) Total Counted Immature Gran % Nucleated RBC % Immature Gran # Segmented Neutrophils Lymphocytes Monocytes Eosinophils Nucleated RBCs # Atypical Lymphocytes Platelet Estimate ABG pH 7.395 ABG pCO2 37.2 ABG pO2 157.0 H ABG HCO3 23.0 ABG Total CO2 20.7 L ABG O2 Saturation 99.2 ABG Base Excess -1.7 FiO2 50.00 Sodium Potassium Chloride Carbon Dioxide Anion Gap BUN Creatinine GFR Calculation BUN/Creatinine Ratio Glucose POC Glucose 317 H Calculated Osmolality Calcium Phosphorus 2.2 L Magnesium 2.6 H Prealbumin 7.9 L Triglycerides 44 Cold Agglutinin Screen 09/26/16 09/26/16 05:06 05:06 WBC 26.0 H RBC 3.52 L Hgb 9.9 L Hct 31.0 L MCV 88.1 MCH 28 MCHC 31.9 L RDW 15.9 Plt Count 224 MPV 12.5 H Neut % (Auto) 79.0 H Lymph % (Auto) 5.8 L Rincon % (Auto) 9.6 Eos % (Auto) 2.4 Baso % (Auto) 0.5 Neut # (Auto) 20.6 H Lymph # (Auto) 1.5 Rincon # (Auto) 2.5 H Eos # (Auto) 0.6 Baso # (Auto) 0.1 Total Counted 100 Immature Gran % 2.7 Nucleated RBC % 0.1 Immature Gran # 0.69 Segmented Neutrophils 85 Lymphocytes 5 L Monocytes 5 Eosinophils 5 Nucleated RBCs # 0.03 Atypical Lymphocytes Few Platelet Estimate Normal ABG pH ABG pCO2 ABG pO2 ABG HCO3 ABG Total CO2 ABG O2 Saturation ABG Base Excess FiO2 Sodium 146 H Potassium 4.4 Chloride 113 H Carbon Dioxide 21 Anion Gap 16.4 H BUN 74 H Creatinine 2.10 H GFR Calculation 25 BUN/Creatinine Ratio 35.00 H Glucose 204 H POC Glucose Calculated Osmolality 317.6 H Calcium 8.4 L Phosphorus Magnesium Prealbumin Triglycerides Cold Agglutinin Screen - Diagnostic Findings Procedure: Chest x-ray: report reviewed by me - EKG EKG results: interpreted by ne EKG shows: sinus rhythm IHannah Dale, MD, personally performed the services described in this documentation, ascribed by Paris Dover RN in my presence, and it is both accurate and complete .
[2016-09-27] MEDS: INSULIN LISPRO 100 UNIT/ML SUBCUT SCH ×5 (01:12→23:52)
[2016-09-27] MEDS: ALBUTEROL/IPRATROPIUM 3 ML NEB RESP TX SCH ×6 (03:26→23:55)
[2016-09-27 04:13] LABS: ABG Base Excess -1.3 MMOL/L (-2.5-2.5); ABG HCO3 22.2 MMOL/L (20-26); ABG Oxygen Saturation 98.6 % (95-100); ABG PCO2 33.1 MM HG (35-48); ABG PH 7.445 (7.35-7.45); ABG PO2 136.2 MM HG (80-95); ABG TCO2 23.2 MMOL/L (23-27); Allen Test Positive; Pt O2 Delivery Device Ventilator
[2016-09-27] MEDS: ALUMINUM/MAGNES/SIMETH MAX STR 30 ML UDCUP PER TUBE SCH ×4 (04:24→21:59)
[2016-09-27] MEDS: CLINDAMYCIN INJ 600 MG in PREMIX 1 EACH IV SCH ×2 (04:27→09:36)
[2016-09-27 05:12] LABS: Basophils # 0.1 10*3/uL (0.0-0.2); Basophils % 0.4 % (0.0-0.8); Eosinophils # 0.9 10*3/uL (0.0-0.87); Eosinophils % 2.8 % (0.00-10.9); Hematocrit 28.5 VOL% (35.7-47.0); Hemoglobin 9.2 GM/DL (12.0-16.0); Immature Granulocytes % 1.9 %; Immature Granulocytes Absolute 0.58 #; Lymphocytes # 1.5 10*3/uL (1.4-4.0); Lymphocytes % 4.8 % (21.3-54.2); Mean Corpuscular HGB Conc 32.3 GM/DL (32-36); Mean Corpuscular Hemoglobin 28 PG (27-34); Mean Corpuscular Volume 87.4 FL (87-102); Mean Platelet Volume 12.8 FL (9.6-12.0); Monocytes # 2.1 10*3/uL (0.11-0.8); Monocytes % 6.6 % (1.7-12.7); Neutrophils # 26.1 10*3/uL (1.4-7.4); Neutrophils % 83.5 % (38.7-73.9); Platelet Count 215 T/CUMM (130-400); Red Blood Count 3.26 MC/CUMM (3.8-5.5); Red Cell Distribution Width 15.6 % (9.3-17.3); White Blood Count 31.3 T/CUMM (4-12)
[2016-09-27 05:37] LABS: Eosinophils 6 % (0-10); Lymphocytes 9 % (20-55); Segmented Neutrophils 81 % (50-85); Total Cells Counted 100
[2016-09-27 05:38] LABS: Hypochromasia 1+; Platelet Estimate Normal
[2016-09-27 05:46] LABS: Calcium 8.4 MG/DL (8.5-10.1); Potassium 4.5 MMOL/L (3.5-5.1)
[2016-09-27] MEDS: LEVOTHYROXINE 100 MCG VIAL IV SCH (07:08)
--- NOTE | 2016-09-27 07:27 | XRay Report ---
Referring Physician: Ismael Duenas Exam: XR chest 1V portable Date: September 27, 2016 at 3:12 AM Reason: Ventilation Comparison: Chest x-ray post procedure September 26, 2016 Findings: An endotracheal tube is in place with its distal tip at the level of the ashleigh. It is recommended that it be retracted at least 2 cm. A feeding tube is also seen extending into the stomach and beyond the [id number]. There is a right-sided central venous catheter and cardiac pacing device as before. The cardiac silhouette is again mildly enlarged, and there is prominent calcified plaque at the aortic arch. Hazy opacities are seen scattered throughout both lungs. This is concerning for pulmonary edema and atelectasis, but other considerations include pneumonia. No pneumothorax is identified. The osseous structures appear stable. Impression: 1. The distal tip of the endotracheal tube projects at the ashleigh. It is recommended that it be retracted at least 2 cm. 2. There are hazy opacities within both lungs, which may be slightly more prominent at the left lung base today. This likely represents pulmonary edema and atelectasis, but other considerations include pneumonia. The endotracheal tube findings were discussed with the patient's nurse, Viki, on September 27, 2016 at 7:24 AM. PROCEDURE INTERPRETED AT [facility] DEPARTMENT OF RADIOLOGY Final Report Signed by: Dr. Kirill Beck
--- NOTE | 2016-09-27 08:02 | Hospitalist Progress Note ---
Hospitalist: Subjective Interval history: Nurse charting reflects 500 cc out NGT overnight last 24 hours. No fever. Nursing reports no bowel movements. Still intubated on the vent Exam - Constitutional Vitals: Period Temp Pulse Resp BP Sys/Quezada Pulse Ox Last 24 Hr 97.2 F-98.8 F 80-138 12-45 99-147/44-102 95-100 Exam: GEN: Intubated and sedated HEENT: PERRL, sclera clear NECK: supple, neck midline, no LAD CV: RRR no M LUNGS: CTAB anteriorly, diminished at the bases ABD: soft, +BS, no HSM or masses appreciated. EXT: warm and well perfused. No clubbing, cyanosis or edema Results - Labs CBC & BMP: 09/27/16 08:45 09/27/16 03:59 - Impressions (1) Sepsis with septic shock due to aspiration pneumonia and SBO- improved Status: Acute Assessment and plan: - Continue IV antibiotics, bronchodilators, vent management per pulmonology - off Neonephrine. 2) Acute hypoxic and hypercarbic respiratory failure due to aspiration pneumonia in a patient with COPD -FOB 09/26 showed evidence of aspiration. BAL cultures pending. -09/25 Sputum culture growing GPC and GNR. F/U culture -Cont Vanc day (09/25- ), Levaquin (09/20-09/27 ) and Clindamycin (09/26-09/27 ). Antibiotics changed to Vanc and Ceftaz per Pulm 09/27 -WBC increasing more. Not on steroids. No fever. Check ESR, CRP and trend. Procalcitonin takes several days to return or would check it. -Check smear review (pt has history of breast cancer) -Check CT chest, abd, pelvis -Vent management per pulm -Cont bronchodilators 3) Acute SBO- - Cont TPN, serial imaging and clinical exam - Monitor NGT output. - Dr Allred (surgery) following - Diet per surgery. NPO for now 4) DEMETRIUS on CKD stage3- creatinine baseline is 1.6. Today 2.0- slowly improving - Cont gentle IVF. Serial labs 5) COPD- not in exacerbation - Cont Bronchodilators. 6) Chronic hypothyroidism- - Cont IV synthroid until able to use GI tract (takes armor thyroid at home.) 7) Chronic systolic CHF- EF 35-40% per ECHO 08/2016. s/p acute exacerbation resolved with diuretics. Watch for overload. 8) Diabetes mellitus 2- fairly well controlled Status: Chronic Current Visit: Yes - Insulin sliding scale and accuchecks q6h 9) Severe protein calorie malnutrition - on TPN. Supplementation. Nutrition consulted. DVT prophylaxis- Lovenox renally dosed. Pt is critically ill on the vent and requires intubation at this time. 45 minutes spent with this patient. D/W nurse. D/W [facility] and updated by phone. All questions answered. - Diagnostic Findings Procedure: X-ray: report reviewed by me (Impression: haziness bilaterally and ETT tip at ashleigh needs to be pulled back 2 cm)
[2016-09-27] MEDS: DESITIN 4OZ/NYSTATIN 15 GRAM MIXTURE PASTE TOP SCH ×2 (08:27→22:00)
[2016-09-27] MEDS: INSULIN GLARGINE 100 UNIT/ML SUBCUT SCH (08:27)
[2016-09-27 08:58] LABS: Basophils # 0.1 10*3/uL (0.0-0.2); Basophils % 0.2 % (0.0-0.8); Eosinophils # 0.8 10*3/uL (0.0-0.87); Eosinophils % 2.9 % (0.00-10.9); Hematocrit 28.1 VOL% (35.7-47.0); Hemoglobin 9.2 GM/DL (12.0-16.0); Immature Granulocytes Absolute 0.57 #; Lymphocytes # 1.6 10*3/uL (1.4-4.0); Lymphocytes % 5.5 % (21.3-54.2); Mean Corpuscular HGB Conc 32.7 GM/DL (32-36); Mean Corpuscular Hemoglobin 29 PG (27-34); Mean Corpuscular Volume 89.5 FL (87-102); Mean Platelet Volume 12.1 FL (9.6-12.0); Monocytes # 1.8 10*3/uL (0.11-0.8); Monocytes % 6.2 % (1.7-12.7); Neutrophils % 83.2 % (38.7-73.9); Platelet Count 203 T/CUMM (130-400); Red Blood Count 3.14 MC/CUMM (3.8-5.5); Red Cell Distribution Width 15.9 % (9.3-17.3); White Blood Count 28.9 T/CUMM (4-12)
[2016-09-27 09:29] LABS: Band Neutrophils 4 % (0-10); Lymphocytes 5 % (20-55); Segmented Neutrophils 88 % (50-85); Total Cells Counted 100
[2016-09-27 09:30] LABS: Hypochromasia 1+; Microcytosis Slight
[2016-09-27 09:31] LABS: Ovalocytes Slight; Platelet Estimate Normal
[2016-09-27] MEDS: VANCOMYCIN INJ 1,000 MG in SODIUM CHLORIDE 0.9% 250 ML IV SCH (10:20)
[2016-09-27] MEDS ORDERED: cefTAZidime 500 MG in SODIUM CHLORIDE 0.9% 100 ML IV SCH (11:00)
--- NOTE | 2016-09-27 11:02 | Pulmonology Progress Note ---
Pulmonary - PN: Subj Interval history: This 81-year-old black female whom I saw in pulmonary consultation on 09/25/2016. I was asked to manage her pulmonary problems and her mechanical ventilation. Patient originally been admitted with small bowel obstruction and septic shock. She also had acute kidney injury and she was dehydrated and she had mild elevation of her troponins. She had acute renal failure with hypotension and her lactic acids were elevated 6.6 and creatinine was 3.6. Dr. Henrry Moore saw in surgery consultation she was treated this conservatively. From pulmonary standpoint she became exhausted on the night of 09/24/2016 and reached a point that she could not continue to breathe and she required intubation mechanical ventilation. My impressions are. 1. Right lower lung, left upper lung and left lower lung pneumonia with atelectasis. This patient's had small bowel obstruction with nausea and vomiting. I suspect we have aspiration with bacterial superinfection. 2. Small bowel obstruction. Patient's had no bowel movements but she is developing bowel sounds. 3. Insulin-dependent diabetes mellitus 4. History of high blood pressure 5. COPD/asthma 6. Cardiac pacemaker 7. Breast cancer. 2014 8. Obesity 9. Former smoker 10. Acute on chronic renal failure. 09/26/2016. Earlier today this patient was evaluated with fiberoptic bronchoscopy . She had retained secretions bilaterally. She had evidence of mild gastric acid injury which is most prominent in the left upper lung and left lower lung and right lower lung. Multiple specimens were sent for cultures. She tolerated procedure well. Pre-bronchoscopy chest x-ray showed a fairly dense left lower lung infiltrate. There are scattered infiltrates in the right upper and right lower lung. There are no positive cultures. Sputum Gram stain from showed many gram-positive cocci. On mechanical ventilation with FiO2 of 50% ABGs show pH 7.395, PCO2 37, PO2 157 and bicarbonate 23. Electrolytes are close to normal. Creatinine is 2.10 with a BUN of 74. White count is elevated at 26,000 with 79 segs 6 lymphs and 10 monos. H&H is dropped to 9.9/ 31.0 and platelets are 224,000. Glucoses are elevated. Doppler venogram showed no evidence of deep venous thrombophlebitis. This patient's on stage to the weaning protocol. She was tried on a T-tube for short time and did not terrible. Will continue present protocols and make sure she is also on physical therapy protocol. 09/27/2016. Today's chest x-ray shows improvement. There is better variation. Patient has cardiomegaly. Her sputum is growing E. coli and methicillin- resistant staph aureus. Gram-positive cocci gram-negative rods are growing from bronchoscopy specimens taken 2016. This patient originally presented with small bowel obstruction was covered with GI medicines. The present time I have left her on vancomycin. I have stopped her Levaquin and I have stopped her Cleocin. I have added Fortaz. I have consulted infectious disease to help with management. White blood cell count remains elevated at 28,900 with 83 segs. H&H is 9.2/28.1. Platelets of 203,000. Creatinine is 2.00 with a BUN of 76. Electrolytes are normal. C-reactive protein is elevated at 9.98. Vancomycin trough level is 4.8. This is being managed by pharmacology. ABGs on FiO2 of 40% and mechanical ventilation showed pH of 7.445, PCO2 of 33, PO2 of 136 and bicarb of 22.2. The patient still in stage III to weaning protocol. Physical therapy protocol as previously been ordered. Physical exam. Vital signs. See below Neurologic. Patient sedated but she appears to move all fours. Face is symmetrical. Neck is symmetrical no meningismus Chest reveals prominent large airway congestion Heart no gallop Abdomen rare bowel sounds Lower extremities. Chronic venous stasis. No evidence of deep venous thrombophlebitis. Lymphatics. No submandibular cervical supraclavicular adenopathy. Skin the face and hands show no cancerous infectious lesions. No other areas of skin were examined The remainder of the physical exam is negative Plan. 09/25/2006 1. Agree with antibiotics. Levaquin and Flagyl. Vancomycin 2. Fiberoptic bronchoscopy 3. Patient's on pressor agents to support of breath blood pressure at the present time 4. Proton pump inhibitor protocol 5. Agree with deep venous thrombophlebitis prevention protocol 6. Mechanical ventilation weaning protocol 7. Mechanical ventilation physical therapy protocol 8. Daily chest x-ray ABGs and lab 9. Doppler venograms of lower extremity 10. See orders. 11. Sputum for Gram stain culture and sensitivity 09/26/2016. 1. See today's note above. 2. Check bronchoscopy specimen 3. All applicable protocols Home Medications 09/27/2016. 1. Sputum specimens are positive for E. coli and methicillin-resistant staph aureus. See today's note above about antibiotic changes made. Infectious disease has been consulted. 2. Continue weaning protocol 3. Continue daily ABGs chest x-ray and lab. Exam (Progress Note) - Constitutional Vitals: Period Temp Pulse Resp BP Sys/Quezada Pulse Ox Last 24 Hr 97.2 F-99.0 F 80-138 12-45 99-139/44-102 95-100 Results - Labs CBC & BMP: 09/27/16 08:45 09/27/16 03:59
[2016-09-27] MEDS: MUPIROCIN 2% OINT 22 GM TUBE TOP SCH ×2 (12:28→22:00)
--- NOTE | 2016-09-27 12:43 | XRay Report ---
Referring Physician: BUTCH Sánchez Exam: XR chest 1V portable Date: September 27, 2016 at 12:02 PM Reason: Nasogastric tube placement Comparison: Chest one view portable September 27, 2016 at 3:12 AM Findings: An endotracheal tube is in place with its distal tip at the level of the sternoclavicular junctions, projecting 1.5-2.0 cm above the ashleigh. A right IJ catheter and feeding tube are again in place. The distal tip of the feeding tube appears to be located within the distal stomach/gastric antrum. The cardiomediastinal silhouette appears stable. There are hazy opacities within both lungs. This is concerning for pulmonary edema and atelectasis, but other considerations include pneumonia. No pneumothorax is identified. No acute osseous process is seen. Surgical clips are noted within the right abdomen. Impression: 1. A feeding tube is in place. Its distal aspect is slightly curled within the stomach with the distal tip within the distal stomach/gastric antrum. 2. The distal tip of the endotracheal tube now projects 1.5-2 cm above the ashleigh. 2. There are persistent hazy opacities within both lungs. This is similar to before. PROCEDURE INTERPRETED AT [facility] DEPARTMENT OF RADIOLOGY Final Report Signed by: Dr. Kirill Beck
--- NOTE | 2016-09-27 13:15 | Pathology Report from [facility] ---
[facility] [place] # : [id number] PATIENT NAME : Ritika Oconnell ORDERING DR : SELENA HOUSTON MD CLINICAL HX: Aspiration, Retained Secretion POST-OP DX: Same SPECIMEN INFO: Washing,Bronchial,MAURICE - 10 mls yellow, cloudy CLASS: II CLASS COMMENTS: Marked acute inflammation and scant respiratory epithelium.CELL BLOCK: Same. CLASS LEGEND: CLASS 0 Material inadequate for diagnosis because of (see comment) CLASS I Absence of atypical or abnormal cells CLASS II Atypical Cytology but no evidence of malignancy CLASS III Cytology suggestive of but not conclusive for malignancy CLASS IV Cytology strongly suggestive of malignancy CLASS V Cytology conclusive for malignancy COLLECTED DATE: 09/26/2016 [facility] REPORT DATE: 09/27/2016 ELECTRONICALLY SIGNED BY: Javier Bingham M.D. 09/27/2016 - 11:32:45 [facility]
[2016-09-27] MEDS: FAT EMULSION 20% 250 ML IV SCH (14:13)
--- NOTE | 2016-09-27 15:08 | General Surgery Progress Note ---
Assessment and Plan (1) SBO (small bowel obstruction) Status: Acute Assessment and plan: Appears to be resolved. Increased NG output remains elevated, but CT scan demonstrated NG tube down and duodenum. We will pull this back and expect this to improve the output. Will start tube feedings as well - will monitor for high gastric residuals. Current Visit: No Subjective Patient reports: Present: other (Intubated. Opens eyes to voice and exam. ) Exam - Constitutional Vitals: Period Temp Pulse Resp BP Sys/Quezada Pulse Ox Last 24 Hr 97.2 F-99.0 F 80-138 12-45 104-135/44-93 95-100 General appearance: morbidly obese, other (Intubated) - Head Head exam: Present: normal inspection, normocephalic - Neck Neck exam: Present: trachea midline - GI/Abdominal GI/Abdominal exam: Present: other (obese, soft, ND. Possible tenderness elicited with deep palpation. No guarding or rigidity. NGT with bilious output. ) - Skin Skin exam: Present: normal color, warm Results - Labs CBC & BMP: 09/27/16 08:45 09/27/16 03:59 - Diagnostic Findings Procedure: CT Abdomen and Pelvis: image reviewed by me, report reviewed by me
[2016-09-27] MEDS: ENOXAPARIN 30 MG/0.3 ML SYRINGE SUBCUT SCH (16:11)
[2016-09-27] MEDS: TRACE ELEMENTS (5) 1 ML, MULTIVITAMIN INJ 10 ML in AMINO ACIDS/DEXT/LYTES 4.25-5% 2,000 ML IV SCH (17:23)
--- NOTE | 2016-09-27 18:38 | Infectious Disease Consult ---
Assessment and Plan (1) Pneumonia Status: Acute Assessment and plan: Probably from aspiration. MRSA and E. coli cultured. Recommendations: 1. Agree with ceftazidime pending results of latest sputum culture, however change dose to 1 g daily 2. Agree with vancomycin. Renal function has been monitored closely on this drug. Follow levels; goal trough level of about 15. 3. Follow-up results of latest sputum cultures and de-escalate from ceftazidime if able Thank you very much for the consult. Will follow. Current Visit: Yes (2) COPD (chronic obstructive pulmonary disease) Status: Chronic Current Visit: Yes (3) Chronic renal insufficiency Status: Chronic Assessment and plan: Acute on chronic renal insufficiency. Renal function will have to be monitored closely on the vancomycin. Current Visit: Yes (4) Diabetes mellitus Status: Chronic Current Visit: Yes (5) Hypertension Status: Chronic Current Visit: Yes (6) SBO (small bowel obstruction) Status: Resolved Assessment and plan: Resolved with conservative management. Patient now on tube feeds. Current Visit: No History of Present Illness Chief complaint: Pneumonia History of present illness: History obtained from the chart as patient is sedated on the vent. Ms. Oconnell is a 81 year old female admitted on 20 September with small bowel obstruction. This was managed conservatively. 3 days after admission the patient developed respiratory failure and had to be intubated and moved to the ICU. She required vasopressor support. It was felt that she aspirated. The patient was on empiric antibiotics. Sputum culture came up positive for E. coli as well as MRSA. Today the patient was switched to ceftazidime and clindamycin and levofloxacin was stopped. She has also been put on vancomycin. I am asked to assist with management. She has had persisting significant leukocytosis. No fever. She has been off vasopressor since yesterday. Home Medications Medication Instructions Recorded Confirmed Type Allopurinol [Zyloprim] 100 mg PO DAILY 02/05/16 09/20/16 History Aspirin EC Tab 81 mg PO DAILY 02/05/16 09/20/16 History Furosemide Tab [Lasix Tab] 40 mg PO DAILY PRN 02/05/16 09/20/16 History Insulin NPH Human Isophane 10 unit SUBCUT BID 02/05/16 09/20/16 History [NovoLIN N] Letrozole [Femara] 2.5 mg PO DAILY 02/05/16 09/20/16 History Meloxicam [Mobic] 15 mg PO DAILY 02/05/16 09/20/16 History Montelukast Tab [Singulair Tab] 10 mg PO BEDTIME 02/05/16 09/20/16 History Spironolactone [Aldactone] 25 mg PO DAILY 02/05/16 09/20/16 History Thyroid [[place] Thyroid] 30 mg PO DAILY 02/05/16 09/20/16 History Tiotropium Inhalation [Spiriva 18 mcg INH DAILY 02/05/16 09/20/16 History Handihaler] HYDROcodone/ACETAMIN 10-325 [[place] 1 tablet PO Q6H PRN #20 tablet 02/10/1609/20 Rx 10-325] Albuterol Inhaler [Proventil 2 puff INH Q4H PRN 07/27/16 09/20/16 History Inhaler] Linaclotide [Linzess] 145 mcg PO AC BREAKFAST 07/27/16 09/20/16 History Albuterol Sulfate [Proair HFA] 2 puff INH Q4H PRN 09/20/16 09/20/16 History Bisacodyl Tab [Dulcolax Tab] 10 mg PO DAILY 09/20/16 09/20/16 History Metoclopramide Tab [Reglan Tab] 5 mg PO BIDAC 09/20/16 09/20/16 History Allergies Allergy/AdvReac Type Severity Reaction Status Date / Time Penicillins Allergy ANAPHYLAXIS Verified 09/20/16 11:00 ROS unobtainable: due to endotracheal tube, due to mental status Medical,Surgical,& Family Hx - Medical History Cardio: History of: CHF, Hypertension, Pacemaker Endocrine: History of: Diabetes Mellitus (IDDM), Diabetes Mellitus (NIDDM), Thyroid Disorder Respiratory: History of: Asthma, COPD Gastrointestinal: History of: Bowel Obstruction Musculoskeletal: History of: Musculoskeletal Problems (right knee arthritis) Reproductive: History of: Breast Cancer (2015) Other: History of: Cancer - Surgical History Abdominal Surgeries: Surgical HX of: Abdominal Surgery (bowel obstruction surgery), Hernia Repair - Family History Family History: Reports;: Family Diabetes (brothers and sisters) - Social History Smoking Status: Former smoker (patient reports she last smoked approximately 2 months ago) Frequency of Alcohol Use: None Type of Drug Use: None Infectious Disease Exam H&P - Constitutional Vitals: Vital Signs Temp Pulse Resp BP Pulse Ox 98.6 F 90 34 H 111/71 100 09/27/16 16:00 09/27/16 17:00 09/27/16 17:00 09/27/16 17:00 09/27/16 17:00 Intake and Output 09/27/16 09/27/16 09/27/16 07:59 15:59 23:59 Intake Total 350 / 350 440 / 440 2010 Output Total 280 / 280 845 / 845 125 / 125 Balance 70 / 70 -405 / -405 1886 / 1886 Intake: IV 350 / 350 400 / 400 2010 Cleocin Inj 600 mg In 100 / 100 50 / 50 Premix 1 Each @ 100 mls/ hr IV Q6H [facility] Rx#: [id number] Intralipid 20% 250 ml @ 250 / 250 25 mls/hr IV Q24H [facility] Rx# :[id number] Multitrace 5 Conc 1 ml 2010 Multivitamin Inj 10 ml In Clinimix E 4.25-5 2,000 ml @ 75 mls/hr IV .Q24H [facility] Rx#:[id number] Vancomycin Inj 1,000 mg 250 / 250 In Ns 250 ml @ 250 mls/hr IV Q48H [facility] Rx#: [id number] Fortaz 500 mg In Ns 100 100 / 100 ml @ 200 mls/hr IV Q12H [facility] Rx#:[id number] Oral 40 / 40 Output: Gastric Drainage 300 / 300 Right Nare 300 / 300 Urine 280 / 280 545 / 545 125 / 125 Other: Tube Feeding 10 Voiding Method Indwelling Catheter Indwelling Catheter Indwelling Catheter # Bowel Movements 2 Weight 66.224 kg Patient Weight 09/27/16 23:59 Weight 66.224 kg Exam: General: Patient on well-looking, she is arousable but slow to respond HEENT: Mucous membranes pink and moist, anicteric acyanotic, [place], ET tube in situ Neck: Supple, no thyroid gland enlargement, no lymphadenopathy Respiratory system: Breath sounds vesicular, no crepitations or wheezes heard Cardiovascular: Normal S1 and S2, no murmurs appreciated Abdomen: Normal bowel sounds, soft nontender throughout, no organomegaly or mass Genitourinary: No suprapubic pain or bladder distention, clear urine from [place] catheter Extremities: no edema Skin: No rash Reports - Labs CBC & BMP: 09/28/16 05:00 09/28/16 05:00 Labs: Laboratory Results - last 24 hr 09/26/16 09/27/16 09/27/16 18:33 00:00 03:59 WBC 31.3 H RBC 3.26 L Hgb 9.2 L Hct 28.5 L MCV 87.4 MCH 28 MCHC 32.3 RDW 15.6 Plt Count 215 MPV 12.8 H Neut % (Auto) 83.5 H Lymph % (Auto) 4.8 L Dane % (Auto) 6.6 Eos % (Auto) 2.8 Baso % (Auto) 0.4 Neut # (Auto) 26.1 H Lymph # (Auto) 1.5 Dane # (Auto) 2.1 H Eos # (Auto) 0.9 H Baso # (Auto) 0.1 Total Counted 100 Immature Gran % 1.9 Nucleated RBC % 0.0 Immature Gran # 0.58 Segmented Neutrophils 81 Band Neutrophils Lymphocytes 9 L Monocytes 4 Eosinophils 6 Nucleated RBCs # 0.00 Platelet Estimate Normal Hypochromasia 1+ Microcytosis Ovalocytes Morphology Comment Peripheral Blood Smear Peripher Smr Path Cons ESR Westergren ABG pH ABG pCO2 ABG pO2 ABG HCO3 ABG Total CO2 ABG O2 Saturation ABG Base Excess FiO2 Sodium Potassium Chloride Carbon Dioxide Anion Gap BUN Creatinine GFR Calculation BUN/Creatinine Ratio Glucose POC Glucose 229 H 225 H Calculated Osmolality Calcium C-Reactive Protein Vancomycin Trough 09/27/16 09/27/16 09/27/16 03:59 04:05 05:32 WBC RBC Hgb Hct MCV MCH MCHC RDW Plt Count MPV Neut % (Auto) Lymph % (Auto) [place] % (Auto) Eos % (Auto) Baso % (Auto) Neut # (Auto) Lymph # (Auto) [place] # (Auto) Eos # (Auto) Baso # (Auto) Total Counted Immature Gran % Nucleated RBC % Immature Gran # Segmented Neutrophils Band Neutrophils Lymphocytes Monocytes Eosinophils Nucleated RBCs # Platelet Estimate Hypochromasia Microcytosis Ovalocytes Morphology Comment Peripheral Blood Smear Peripher Smr Path Cons ESR Westergren ABG pH 7.445 ABG pCO2 33.1 L ABG pO2 136.2 H ABG HCO3 22.2 ABG Total CO2 23.2 ABG O2 Saturation 98.6 ABG Base Excess -1.3 FiO2 40.00 Sodium 143 Potassium 4.5 Chloride 110 H Carbon Dioxide 21 Anion Gap 16.5 H BUN 76 H Creatinine 2.00 H GFR Calculation 26 BUN/Creatinine Ratio 38.00 H Glucose 184 H POC Glucose 193 H Calculated Osmolality 312.0 H Calcium 8.4 L C-Reactive Protein Vancomycin Trough 09/27/16 09/27/16 09/27/16 08:45 08:45 08:45 WBC 28.9 H RBC 3.14 L Hgb 9.2 L Hct 28.1 L MCV 89.5 MCH 29 MCHC 32.7 RDW 15.9 Plt Count 203 MPV 12.1 H Neut % (Auto) 83.2 H Lymph % (Auto) 5.5 L Dane % (Auto) 6.2 Eos % (Auto) 2.9 Baso % (Auto) 0.2 Neut # (Auto) 24.0 H Lymph # (Auto) 1.6 Dane # (Auto) 1.8 H Eos # (Auto) 0.8 Baso # (Auto) 0.1 Total Counted 100 Immature Gran % 2.0 Nucleated RBC % 0.0 Immature Gran # 0.57 Segmented Neutrophils 88 H Band Neutrophils 4 Lymphocytes 5 L Monocytes 3 Eosinophils Nucleated RBCs # 0.00 Platelet Estimate Normal Hypochromasia 1+ Microcytosis Slight Ovalocytes Slight Morphology Comment Peripheral Blood Smear Not Reportable Peripher Smr Path Cons ESR Westergren 116 H ABG pH ABG pCO2 ABG pO2 ABG HCO3 ABG Total CO2 ABG O2 Saturation ABG Base Excess FiO2 Sodium Potassium Chloride Carbon Dioxide Anion Gap BUN Creatinine GFR Calculation BUN/Creatinine Ratio Glucose POC Glucose Calculated Osmolality Calcium C-Reactive Protein 9.98 H Vancomycin Trough 09/27/16 09/27/16 09/27/16 08:47 12:08 18:08 WBC RBC Hgb Hct MCV MCH MCHC RDW Plt Count MPV Neut % (Auto) Lymph % (Auto) Dane % (Auto) Eos % (Auto) Baso % (Auto) Neut # (Auto) Lymph # (Auto) Dane # (Auto) Eos # (Auto) Baso # (Auto) Total Counted Immature Gran % Nucleated RBC % Immature Gran # Segmented Neutrophils Band Neutrophils Lymphocytes Monocytes Eosinophils Nucleated RBCs # Platelet Estimate Hypochromasia Microcytosis Ovalocytes Morphology Comment Peripheral Blood Smear Peripher Smr Path Cons ESR Westergren ABG pH ABG pCO2 ABG pO2 ABG HCO3 ABG Total CO2 ABG O2 Saturation ABG Base Excess FiO2 Sodium Potassium Chloride Carbon Dioxide Anion Gap BUN Creatinine GFR Calculation BUN/Creatinine Ratio Glucose POC Glucose 218 H 179 H Calculated Osmolality Calcium C-Reactive Protein Vancomycin Trough 4.8 L - Reports Microbiology: Microbiology 09/26/16 Unknown Direct Acid Fast Bacilli Smear - Final Bronchial Josué Lavage No acid fast bacilli seen AFB Smear Concentration - Final No acid fast bacilli seen 09/26/16 Unknown Bronchoalveolar Lavage Culture - Preliminary Bronchial Josué Lavage Gram Negative Rods Gram Positive Cocci Gram Stain - Final 09/25/16 Unknown Sputum Culture - Final Sputum Escherichia coli Staph Aureus Methicillin Resis Gram Stain - Final 09/26/16 04:09 MRSA Surveillance Culture - Final Nares - Both Nares (Mrsa screen) MRSA ISOLATED Please place patient in contact isolation per Infection Control. - Diagnostic Findings Procedure: Chest x-ray: image reviewed by me, report reviewed by me (Patchy opacities bilaterally)
[2016-09-27] MEDS: MORPHINE 2 MG/1 ML SYRINGE IV PRN (19:42)
--- NOTE | 2016-09-27 21:21 | Cardiology Progress Note ---
Stanislaw Foley April, RN, am scribing for, and in the presence of, Kedar Young MD 21:20. Assessment and Plan (1) Elevated troponin Status: Acute Assessment and plan: Initial assessment and plan 09/26/16: No evidence overt overt ischemia Had deterioration over the weekend and had to be intubated Dr. Quiros did bronchoscopy today and found some lung injury due to gastric reflux Continue to support Watch for any signs or symptoms of ischemia Initial rise in troponins could have been due to sepsis. Prognosis remains guarded. Assessment and plan 09/27/16: Has had significant ventricular ectopy. Repleted low magnesium with IV magnesium supplementation Because of increased nonsustained VT, stopped dobutamine. This lessen the VT. Off pressure for now. Remains intubated Continue slow weaning Prognosis remains guarded. Current Visit: Yes (2) SBO (small bowel obstruction) Status: Acute Assessment and plan: Hospitalist and general surgery following. This is clinically improving each day. Current Visit: No (3) Dehydration Status: Acute Current Visit: Yes (4) Chronic renal insufficiency Status: Chronic Current Visit: Yes (5) Hypertension Status: Chronic Current Visit: Yes (6) Nonischemic cardiomyopathy Status: Chronic Current Visit: Yes (7) COPD (chronic obstructive pulmonary disease) Status: Chronic Current Visit: Yes (8) Diabetes mellitus Status: Chronic Current Visit: Yes (9) History of breast cancer Status: Chronic Current Visit: No (10) Status post placement of cardiac pacemaker Status: Chronic Current Visit: Yes (11) On mechanically assisted ventilation Status: Acute Current Visit: Yes Cardiology - PN: Subj Interval history: CHIEF HOSPITAL ADMINISTRATOR: DR. BRAVO PCP: DR. MINA ROBLES DINING ROOM BUSSER: DR. ABBE CHAWLA Ms. Oconnell is seen in the intensive care unit. She does not respond to verbal stimuli. She is intubated on mechanical ventilation at 40%, O2 sat 100%. She had bronchoscopy done yesterday. billiard player currently shows sinus rhythm with heart rates in the 80s. She is off pressors, current blood pressure 131/86. Her H&H a bit lower today at 9.2 and 29.5. Creatinine is improved from admission, 2.00 today. Exam (Progress Note) - Constitutional Vitals: Period Temp Pulse Resp BP Sys/[place] Pulse Ox Last 24 Hr 97.2 F-98.7 F 80-138 12-45 99-147/44-102 95-100 General appearance: other (Intubated on mechanical ventilation) - Head Head exam: Absent: abrasion, hematoma - Eye Eye exam: Absent: periorbital swelling, laceration to eyelids - Respiratory Respiratory exam: Present: other (Been on mechanical ventilation, coarse breath sounds per ventilator) - Cardiovascular Cardiovascular exam: Present: regular rate and rhythm. Absent: rubs - GI/Abdominal GI/Abdominal exam: Present: hypoactive bowel sounds, soft - Extremities Exam Extremities exam: Present: edema (Noted to hands) - Neurological Exam Neurological exam: Present: altered (Does not respond to verbal stimuli) - Skin Skin exam: Present: warm, dry Result/EKG - Labs CBC & BMP: 09/27/16 08:45 09/27/16 03:59 Lab Results: I have reviewed the past 24 hour labs Labs: Laboratory Results - last 24 hr 09/26/16 09/26/16 09/27/16 12:57 18:33 00:00 WBC RBC Hgb Hct MCV MCH MCHC RDW Plt Count MPV Neut % (Auto) Lymph % (Auto) [place] % (Auto) Eos % (Auto) Baso % (Auto) Neut # (Auto) Lymph # (Auto) [place] # (Auto) Eos # (Auto) Baso # (Auto) Total Counted Immature Gran % Nucleated RBC % Immature Gran # Segmented Neutrophils Lymphocytes Monocytes Eosinophils Nucleated RBCs # Platelet Estimate Hypochromasia Morphology Comment ABG pH ABG pCO2 ABG pO2 ABG HCO3 ABG Total CO2 ABG O2 Saturation ABG Base Excess FiO2 Sodium Potassium Chloride Carbon Dioxide Anion Gap BUN Creatinine GFR Calculation BUN/Creatinine Ratio Glucose POC Glucose 209 H 229 H 225 H Calculated Osmolality Calcium 09/27/16 09/27/16 09/27/16 03:59 03:59 04:05 WBC 31.3 H RBC 3.26 L Hgb 9.2 L Hct 28.5 L MCV 87.4 MCH 28 MCHC 32.3 RDW 15.6 Plt Count 215 MPV 12.8 H Neut % (Auto) 83.5 H Lymph % (Auto) 4.8 L [place] % (Auto) 6.6 Eos % (Auto) 2.8 Baso % (Auto) 0.4 Neut # (Auto) 26.1 H Lymph # (Auto) 1.5 [place] # (Auto) 2.1 H Eos # (Auto) 0.9 H Baso # (Auto) 0.1 Total Counted 100 Immature Gran % 1.9 Nucleated RBC % 0.0 Immature Gran # 0.58 Segmented Neutrophils 81 Lymphocytes 9 L Monocytes 4 Eosinophils 6 Nucleated RBCs # 0.00 Platelet Estimate Normal Hypochromasia 1+ Morphology Comment ABG pH 7.445 ABG pCO2 33.1 L ABG pO2 136.2 H ABG HCO3 22.2 ABG Total CO2 23.2 ABG O2 Saturation 98.6 ABG Base Excess -1.3 FiO2 40.00 Sodium 143 Potassium 4.5 Chloride 110 H Carbon Dioxide 21 Anion Gap 16.5 H BUN 76 H Creatinine 2.00 H GFR Calculation 26 BUN/Creatinine Ratio 38.00 H Glucose 184 H POC Glucose Calculated Osmolality 312.0 H Calcium 8.4 L 09/27/16 05:32 WBC RBC Hgb Hct MCV MCH MCHC RDW Plt Count MPV Neut % (Auto) Lymph % (Auto) [place] % (Auto) Eos % (Auto) Baso % (Auto) Neut # (Auto) Lymph # (Auto) [place] # (Auto) Eos # (Auto) Baso # (Auto) Total Counted Immature Gran % Nucleated RBC % Immature Gran # Segmented Neutrophils Lymphocytes Monocytes Eosinophils Nucleated RBCs # Platelet Estimate Hypochromasia Morphology Comment ABG pH ABG pCO2 ABG pO2 ABG HCO3 ABG Total CO2 ABG O2 Saturation ABG Base Excess FiO2 Sodium Potassium Chloride Carbon Dioxide Anion Gap BUN Creatinine GFR Calculation BUN/Creatinine Ratio Glucose POC Glucose 193 H Calculated Osmolality Calcium - EKG EKG results: interpreted by me EKG shows: sinus rhythm I, Kedar Young MD, personally performed the services described in this documentation, ascribed by Paris Dover RN in my presence, and it is both accurate and complete .
[2016-09-27] MEDS: PHENYLEPHRINE DRIP 40 MG/250 ML PREMIX IV SCH (23:04)
[2016-09-28 03:02] LABS: Allen Test Positive; Pt O2 Delivery Device Ventilator
[2016-09-28] MEDS: ALBUTEROL/IPRATROPIUM 3 ML NEB RESP TX SCH ×6 (03:07→18:40)
[2016-09-28 03:11] LABS: ABG Base Excess -1.1 MMOL/L (-2.5-2.5); ABG HCO3 23.5 MMOL/L (20-26); ABG Oxygen Saturation 99.2 % (95-100); ABG PCO2 34.1 MM HG (35-48); ABG PH 7.431 (7.35-7.45); ABG TCO2 20.8 MMOL/L (23-27)
[2016-09-28] MEDS: ALUMINUM/MAGNES/SIMETH MAX STR 30 ML UDCUP PER TUBE SCH ×4 (04:52→21:42)
[2016-09-28 05:13] LABS: Basophils # 0.1 10*3/uL (0.0-0.2); Basophils % 0.3 % (0.0-0.8); Eosinophils # 0.7 10*3/uL (0.0-0.87); Eosinophils % 2.4 % (0.00-10.9); Hematocrit 30.6 VOL% (35.7-47.0); Immature Granulocytes % 1.6 %; Immature Granulocytes Absolute 0.46 #; Lymphocytes # 1.8 10*3/uL (1.4-4.0); Lymphocytes % 5.9 % (21.3-54.2); Mean Corpuscular HGB Conc 32.7 GM/DL (32-36); Mean Corpuscular Hemoglobin 28 PG (27-34); Mean Corpuscular Volume 85.7 FL (87-102); Monocytes # 2.2 10*3/uL (0.11-0.8); Monocytes % 7.5 % (1.7-12.7); Neutrophils # 24.2 10*3/uL (1.4-7.4); Neutrophils % 82.3 % (38.7-73.9); Platelet Count 259 T/CUMM (130-400); Red Blood Count 3.57 MC/CUMM (3.8-5.5); Red Cell Distribution Width 15.6 % (9.3-17.3); White Blood Count 29.4 T/CUMM (4-12)
[2016-09-28] MEDS: INSULIN LISPRO 100 UNIT/ML SUBCUT SCH ×3 (05:38→18:20)
[2016-09-28 05:42] LABS: Eosinophils 1 % (0-10); Lymphocytes 5 % (20-55); Metamyelocytes 1 %; Segmented Neutrophils 87 % (50-85); Total Cells Counted 100
[2016-09-28 05:43] LABS: Hypochromasia Slight; Microcytosis Slight; Platelet Estimate Normal
[2016-09-28 05:51] LABS: Calcium 7.9 MG/DL (8.5-10.1); Magnesium 2.8 MG/DL (1.8-2.4); Osmolality,Calculated 307.3 MOS/KG (273-304); Potassium 4.7 MMOL/L (3.5-5.1)
--- NOTE | 2016-09-28 07:28 | XRay Report ---
Referring Physician: Ismael Duenas Exam: XR chest 1V portable Date: September 28, 2016 at 3:12 AM Reason: Ventilation Comparison: Chest one view portable September 27, 2016 Findings: An endotracheal tube, feeding tube, right-sided central venous catheter and cardiac pacing device are again in place. The cardiomediastinal silhouette appears stable. There are hazy opacities within both lungs, mainly within the lower lung zones. This could represent pulmonary edema and/or pneumonia. No pneumothorax is identified, but there may be mild left pleural fluid. The osseous structures appear stable. Impression: There has been no significant change when considering slight differences in patient positioning. PROCEDURE INTERPRETED AT [facility] DEPARTMENT OF RADIOLOGY Final Report Signed by: Dr. Kirill Beck
--- NOTE | 2016-09-28 07:33 | Hospitalist Progress Note ---
Hospitalist: Subjective Interval history: Pt was tolerating tube feeds overnight. At 20cc/hr. Large BM overnight. No fever. She is more awake. Pt went 13 hours on CPAP yesterday per nursing Exam - Constitutional Vitals: Period Temp Pulse Resp BP Sys/[place] Pulse Ox Last 24 Hr 98.6 F-99.4 F 76-95 12-35 92-137/44-77 93-100 Exam: GEN: Intubated and awake, following simple commands HEENT: sclera clear NECK: supple, trachea midline, no LAD CV: RRR no M LUNGS: CTAB anteriorly, diminished at the bases ABD: soft, +BS, no HSM or masses appreciated. EXT: warm and well perfused. No clubbing, cyanosis or edema Results - Labs CBC & BMP: 09/28/16 05:00 09/28/16 05:00 - Impressions (1) Sepsis with septic shock due to aspiration pneumonia due to MRSA and E Coli and SBO- improved Status: Acute Assessment and plan: - Continue IV antibiotics, bronchodilators, vent management per pulmonology - off Neonephrine. 2) Acute hypoxic and hypercarbic respiratory failure due to aspiration pneumonia in a patient with COPD -FOB 09/26 showed evidence of aspiration. BAL cultures pending. -09/25 Sputum culture growing GPC and GNR. F/U final culture -Cont Vanc day (09/25- ), Levaquin (09/20-09/27 ) and Clindamycin (09/26-09/27 ). Antibiotics changed to Vanc and Ceftaz per Pulm 09/27. ID following. -WBC still increasing but increase not as fast as an increase in rise. Not on steroids. No fever. Follow Inflammatory markers. -Smear review reactive/infectious (pt has history of breast cancer) -09/28 CXR not changed -CT chest not done. CT abd, pelvis 09/26 reviewed and showed resolution of SBO -Vent management per pulm--weaning -Cont bronchodilators 3) Acute SBO- - Cont TPN, serial imaging and clinical exam - Monitor NGT output. - Dr Allred (surgery) following - Diet per surgery. NPO for now 4) DEMETRIUS on CKD stage3- creatinine baseline is 1.6. Today 1.8- slowly improving - Cont gentle IVF. Serial labs 5) COPD- not in exacerbation - Cont Bronchodilators. 6) Chronic hypothyroidism- - Cont IV synthroid until tolerating tubefeeds at goal (takes armor thyroid at home.) 7) Chronic systolic CHF- EF 35-40% per ECHO 08/2016. s/p acute exacerbation resolved with diuretics. Watch for overload. 8) Diabetes mellitus 2- fairly well controlled Status: Chronic Current Visit: Yes - Insulin sliding scale and accuchecks q6h 9) Severe protein calorie malnutrition - on TPN. Can wean once tolerating tubefeeds at goal. Supplementation. Nutrition consulted. DVT prophylaxis- Lovenox renally dosed. Pt is critically ill on the vent and requires intubation at this time. Attempting weaning per pulm. 41 minutes spent with this patient. D/W nurse. D/W [facility] ([facility]) and updated by phone. All questions answered.
--- NOTE | 2016-09-28 07:53 | General Surgery Progress Note ---
Assessment and Plan (1) Small bowel obstruction Status: Acute Assessment and plan: Impression: Partial small bowel obstruction, resolved Plan: Patient is tolerating tube feeds. Eyes residual was 70. She had a large bowel movement. Labs noted. Infectious disease on the case. Continuing antibiotics. We will advance tube feeds per protocol and continue to check residuals and keep head of bed elevated to 30. Current Visit: No Subjective Narrative: Remains off pressors. No overnight events. Remains intubated. Has been tolerating tube feeds at 20 cc an hour overnight with the highest residual of 70 cc. Had a very large bowel movement. Exam - Constitutional Vitals: Period Temp Pulse Resp BP Sys/Quez[place] Pulse Ox Last 24 Hr 98.6 F-99.4 F 76-95 12-35 92-137/44-77 93-100 General appearance: no acute distress - Head Head exam: Present: normocephalic - Cardiovascular Cardiovascular exam: Present: RRR - GI/Abdominal GI/Abdominal exam: Present: soft ( nondistended, exam limited but no tenderness appreciated. Tolerating tube feeds.) - Skin Skin exam: Present: normal color Results - Labs CBC & BMP: 09/28/16 05:00 09/28/16 05:00 Lab Results: I have reviewed the past 24 hour labs
[2016-09-28] MEDS: LEVOTHYROXINE 100 MCG VIAL IV SCH (07:56)
[2016-09-28] MEDS: INSULIN GLARGINE 100 UNIT/ML SUBCUT SCH (08:02)
[2016-09-28] MEDS: MUPIROCIN 2% OINT 22 GM TUBE TOP SCH ×2 (08:02→21:43)
[2016-09-28] MEDS: DESITIN 4OZ/NYSTATIN 15 GRAM MIXTURE PASTE TOP SCH ×2 (08:02→21:43)
[2016-09-28] MEDS: VANCOMYCIN INJ 1,000 MG in SODIUM CHLORIDE 0.9% 250 ML IV SCH (09:51)
--- NOTE | 2016-09-28 10:24 | Infectious Disease Progress ---
Assessment and Plan (1) Pneumonia Status: Acute Assessment and plan: Probably from aspiration. MRSA and E. coli cultured. Recommendations: 1. De-escalate from ceftazidime to cefazolin, renally dosed at 1 g every 12 2. Continue with vancomycin. Renal function has been monitored closely on this drug. Follow levels; goal trough level of about 15. Current Visit: Yes (2) COPD (chronic obstructive pulmonary disease) Status: Chronic Current Visit: Yes (3) Chronic renal insufficiency Status: Chronic Assessment and plan: Acute on chronic renal insufficiency. Renal function will have to be monitored closely on the vancomycin. Current Visit: Yes (4) Diabetes mellitus Status: Chronic Current Visit: Yes (5) Hypertension Status: Chronic Current Visit: Yes Infectious Disease - PN: Subj Interval history: Patient doing relatively okay, remains off vasopressors. She has not had any fever. Arousable and follows simple commands. Infectious Disease Exam (PN) - Constitutional Vitals: Temp Pulse Resp BP Pulse Ox 99.0 F 80 17 136/56 100 09/28/16 08:00 09/28/16 10:00 09/28/16 10:00 09/28/16 10:00 09/28/16 10:00 General appearance: no acute distress Exam: General appearance: Drowsy but arousable - Eye Eye exam: Present: EOMI. no icterus Pupils: Present: [place] - ENT ENT exam: ET tube in situ - Respiratory Respiratory exam: vesicular BS, no crepitations or wheezes - Cardiovascular Cardiovascular exam: regular rate and rhythm, no murmurs - GI/Abdominal GI/Abdominal exam: normal bowel sounds, soft, non-tender, no organomegaly or mass - Extremities Exam Extremities exam: no edema - Skin Skin exam: no rash Results - Labs CBC & BMP: 09/28/16 05:00 09/28/16 05:00 Lab Results: I have reviewed the past 24 hour labs (E. coli and MRSA from second sputum culture)
--- NOTE | 2016-09-28 10:36 | Pulmonology Progress Note ---
Pulmonary - PN: Subj Interval history: This 81-year-old black female whom I saw in pulmonary consultation on 09/25/2016. I was asked to manage her pulmonary problems and her mechanical ventilation. Patient originally been admitted with small bowel obstruction and septic shock. She also had acute kidney injury and she was dehydrated and she had mild elevation of her troponins. She had acute renal failure with hypotension and her lactic acids were elevated 6.6 and creatinine was 3.6. Dr. Henrry Moore saw in surgery consultation she was treated this conservatively. From pulmonary standpoint she became exhausted on the night of 09/24/2016 and reached a point that she could not continue to breathe and she required intubation mechanical ventilation. My impressions are. 1. Right lower lung, left upper lung and left lower lung pneumonia with atelectasis. This patient's had small bowel obstruction with nausea and vomiting. I suspect we have aspiration with bacterial superinfection. 2. Small bowel obstruction. Patient's had no bowel movements but she is developing bowel sounds. 3. Insulin-dependent diabetes mellitus 4. History of high blood pressure 5. COPD/asthma 6. Cardiac pacemaker 7. Breast cancer. 2014 8. Obesity 9. Former smoker 10. Acute on chronic renal failure. 09/26/2016. Earlier today this patient was evaluated with fiberoptic bronchoscopy . She had retained secretions bilaterally. She had evidence of mild gastric acid injury which is most prominent in the left upper lung and left lower lung and right lower lung. Multiple specimens were sent for cultures. She tolerated procedure well. Pre-bronchoscopy chest x-ray showed a fairly dense left lower lung infiltrate. There are scattered infiltrates in the right upper and right lower lung. There are no positive cultures. Sputum Gram stain from showed many gram-positive cocci. On mechanical ventilation with FiO2 of 50% ABGs show pH 7.395, PCO2 37, PO2 157 and bicarbonate 23. Electrolytes are close to normal. Creatinine is 2.10 with a BUN of 74. White count is elevated at 26,000 with 79 segs 6 lymphs and 10 monos. H&H is dropped to 9.9/ 31.0 and platelets are 224,000. Glucoses are elevated. Doppler venogram showed no evidence of deep venous thrombophlebitis. This patient's on stage to the weaning protocol. She was tried on a T-tube for short time and did not terrible. Will continue present protocols and make sure she is also on physical therapy protocol. 09/27/2016. Today's chest x-ray shows improvement. There is better variation. Patient has cardiomegaly. Her sputum is growing E. coli and methicillin- resistant staph aureus. Gram-positive cocci gram-negative rods are growing from bronchoscopy specimens taken 2016. This patient originally presented with small bowel obstruction was covered with GI medicines. The present time I have left her on vancomycin. I have stopped her Levaquin and I have stopped her Cleocin. I have added Fortaz. I have consulted infectious disease to help with management. White blood cell count remains elevated at 28,900 with 83 segs. H&H is 9.2/28.1. Platelets of 203,000. Creatinine is 2.00 with a BUN of 76. Electrolytes are normal. C-reactive protein is elevated at 9.98. Vancomycin trough level is 4.8. This is being managed by pharmacology. ABGs on FiO2 of 40% and mechanical ventilation showed pH of 7.445, PCO2 of 33, PO2 of 136 and bicarb of 22.2. The patient still in stage III to weaning protocol. Physical therapy protocol as previously been ordered. 09/28/2016. I appreciate Dr. Tirado's infectious disease consultation. Today's chest x-ray shows some mild alveolar infiltrate in the right lower lung the left upper lung. Left lower lung is not well seen. Patient's sputum and bronchoscopy specimens are growing E. coli and methicillin-resistant staph aureus. She is now been advanced to stage V the weaning protocol. ABGs are stable. White count remains elevated 29,400. H&H is stable at 10.0/30.6 and platelets are 259,000. Electrolytes are normal. Creatinine is dropped to 1.80 with a BUN of 75. Physical exam. Vital signs. See below Neurologic. Patient sedated but she appears to move all fours. Face is symmetrical. Neck is symmetrical no meningismus Chest reveals prominent large airway congestion Heart no gallop Abdomen rare bowel sounds Lower extremities. Chronic venous stasis. No evidence of deep venous thrombophlebitis. Lymphatics. No submandibular cervical supraclavicular adenopathy. Skin the face and hands show no cancerous infectious lesions. No other areas of skin were examined The remainder of the physical exam is negative Plan. 09/25/2006 1. Agree with antibiotics. Levaquin and Flagyl. Vancomycin 2. Fiberoptic bronchoscopy 3. Patient's on pressor agents to support of breath blood pressure at the present time 4. Proton pump inhibitor protocol 5. Agree with deep venous thrombophlebitis prevention protocol 6. Mechanical ventilation weaning protocol 7. Mechanical ventilation physical therapy protocol 8. Daily chest x-ray ABGs and lab 9. Doppler venograms of lower extremity 10. See orders. 11. Sputum for Gram stain culture and sensitivity 09/26/2016. 1. See today's note above. 2. Check bronchoscopy specimen 3. All applicable protocols Home Medications 09/27/2016. 1. Sputum specimens are positive for E. coli and methicillin-resistant staph aureus. See today's note above about antibiotic changes made. Infectious disease has been consulted. 2. Continue weaning protocol 3. Continue daily ABGs chest x-ray and lab. 09/28/2016. 1. See today's note above. 2. Continue daily chest x-ray, ABGs and lab. 3. Stage V weaning protocol 4. Physical therapy protocol Exam (Progress Note) - Constitutional Vitals: Period Temp Pulse Resp BP Sys/Quezada Pulse Ox Last 24 Hr 98.6 F-99.4 F 76-95 12-35 92-137/44-77 93-100 Results - Labs CBC & BMP: 09/28/16 05:00 09/28/16 05:00
[2016-09-28] MEDS: ENOXAPARIN 30 MG/0.3 ML SYRINGE SUBCUT SCH (15:20)
[2016-09-28] MEDS: TRACE ELEMENTS (5) 1 ML, MULTIVITAMIN INJ 10 ML in AMINO ACIDS/DEXT/LYTES 4.25-5% 2,000 ML IV SCH (18:20)
[2016-09-28] MEDS: MORPHINE 2 MG/1 ML SYRINGE IV PRN (19:45)
[2016-09-29] MEDS: ALBUTEROL/IPRATROPIUM 3 ML NEB RESP TX SCH ×7 (00:04→23:41)
[2016-09-29] MEDS: PHENYLEPHRINE DRIP 40 MG/250 ML PREMIX IV SCH ×2 (00:14→22:11)
[2016-09-29] MEDS: INSULIN LISPRO 100 UNIT/ML SUBCUT SCH ×4 (00:14→18:13)
[2016-09-29] MEDS: LORazepam 2 MG/1 ML VIAL IV PRN ×2 (03:35→20:58)
[2016-09-29 03:36] LABS: Allen Test Positive; Pt O2 Delivery Device Ventilator
[2016-09-29 03:49] LABS: ABG Base Excess 0.2 MMOL/L (-2.5-2.5); ABG HCO3 24.6 MMOL/L (20-26); ABG Oxygen Saturation 99.1 % (95-100); ABG PCO2 30.6 MM HG (35-48); ABG PH 7.484 (7.35-7.45); ABG TCO2 20.9 MMOL/L (23-27)
[2016-09-29] MEDS: ALUMINUM/MAGNES/SIMETH MAX STR 30 ML UDCUP PER TUBE SCH ×4 (04:06→20:57)
[2016-09-29 04:57] LABS: Basophils # 0.1 10*3/uL (0.0-0.2); Basophils % 0.2 % (0.0-0.8); Eosinophils # 0.6 10*3/uL (0.0-0.87); Eosinophils % 2.1 % (0.00-10.9); Hematocrit 29.9 VOL% (35.7-47.0); Hemoglobin 9.9 GM/DL (12.0-16.0); Immature Granulocytes Absolute 0.52 #; Lymphocytes # 1.7 10*3/uL (1.4-4.0); Lymphocytes % 6.3 % (21.3-54.2); Mean Corpuscular HGB Conc 33.1 GM/DL (32-36); Mean Corpuscular Hemoglobin 29 PG (27-34); Mean Corpuscular Volume 86.9 FL (87-102); Mean Platelet Volume 12.2 FL (9.6-12.0); Monocytes # 1.9 10*3/uL (0.11-0.8); Monocytes % 7.1 % (1.7-12.7); Neutrophils # 21.5 10*3/uL (1.4-7.4); Neutrophils % 82.3 % (38.7-73.9); Platelet Count 293 T/CUMM (130-400); Red Blood Count 3.44 MC/CUMM (3.8-5.5); Red Cell Distribution Width 15.8 % (9.3-17.3); White Blood Count 26.1 T/CUMM (4-12)
[2016-09-29 05:35] LABS: Band Neutrophils 1 % (0-10); Calcium 8.2 MG/DL (8.5-10.1); Eosinophils 2 % (0-10); Hypochromasia 1+; Lymphocytes 5 % (20-55); Microcytosis Slight; Osmolality,Calculated 305.1 MOS/KG (273-304); Ovalocytes Slight; Phosphorous 2.8 MG/DL (2.5-4.9); Platelet Estimate Adequate; Potassium 5.1 MMOL/L (3.5-5.1); Prealbumin 10.2 MG/DL (20-40); Segmented Neutrophils 87 % (50-85); Total Cells Counted 100
--- NOTE | 2016-09-29 06:00 | General Surgery Progress Note ---
Assessment and Plan (1) Small bowel obstruction Status: Acute Assessment and plan: Impression: Partial small bowel obstruction, resolved Plan: Continue tube feeds at goal rate. Her residuals have been okay. She is having bowel movements. I will continue to follow. Current Visit: No Subjective Patient reports: Present: no new complaints Narrative: No events. Remains afebrile vital signs stable. Tolerating tube feeds at goal with bowel movements. Residuals are okay. Exam - Constitutional Vitals: Period Temp Pulse Resp BP Sys/Quezada Pulse Ox Last 24 Hr 97.8 F-99.0 F 72-87 12-35 105-141/49-77 98-100 - Cardiovascular Cardiovascular exam: Present: RRR - GI/Abdominal GI/Abdominal exam: Present: soft (Nondistended and tolerating tube feeds. Remains intubated.) Results - Labs CBC & BMP: 09/29/16 04:50 09/29/16 04:50 Lab Results: I have reviewed the past 24 hour labs
--- NOTE | 2016-09-29 07:29 | Hospitalist Progress Note ---
Hospitalist: Subjective Interval history: Patient had multiple bowel movements yesterday and 1 today. She is tolerating tube feeds at goal at 45 cc an hour. No fever. She is weaning well on the vent tolerated 13 hours on CPAP yesterday per the nurse. Exam - Constitutional Vitals: Period Temp Pulse Resp BP Sys/Quezada Pulse Ox Last 24 Hr 97.8 F-99.0 F 70-87 12-35 103-141/49-77 98-100 Exam: GEN: Intubated and awake, following simple commands HEENT: sclera clear NECK: supple, trachea midline, no LAD CV: RRR no M LUNGS: CTAB anteriorly, diminished at the bases ABD: soft, +BS, no HSM or masses appreciated. EXT: warm and well perfused. No clubbing, cyanosis or edema Results - Labs CBC & BMP: 09/29/16 04:50 09/29/16 04:50 Labs: Blood cultures negative at 5 days Sputum and BAL + MRSA and E Coli sens to VAnc and Ceftaz respectively - Impressions (1) Sepsis with septic shock due to aspiration pneumonia due to MRSA and E Coli and SBO- resolved Status: Acute Assessment and plan: - Continue IV antibiotics, bronchodilators, vent management per pulmonology - weaning - off Neonephrine. 2) Acute hypoxic and hypercarbic respiratory failure due to aspiration pneumonia in a patient with COPD- improving -FOB 09/26 showed evidence of aspiration. BAL cultures pending. -09/25 Sputum culture growing GPC and GNR. F/U final culture -Cont Vanc day (09/25- ), Levaquin (09/20-09/27 ) and Clindamycin (09/26-09/27 ). Antibiotics changed to Vanc and Ceftaz per Pulm 09/27. Now on Vanc and Cefazolin by ID. -WBC decreasing. -Smear review reactive/infectious (pt has history of breast cancer) -09/28 CXR not changed -CT chest not done. CT abd, pelvis 09/26 reviewed and showed resolution of SBO -Vent management per pulm--weaning -Cont bronchodilators 3) Acute SBO- resolved - Wean TPN - Dr Allred (surgery) following - Cont Tubefeeds 4) DEMETRIUS on CKD stage3- reportedly creatinine baseline is 1.6. Today 1.6- improved - Stop IVF. Serial labs 5) COPD- not in exacerbation - Cont Bronchodilators. 6) Chronic hypothyroidism- - Cont IV synthroid until tolerating tubefeeds at goal (takes armor thyroid at home.) 7) Chronic systolic CHF- EF 35-40% per ECHO 08/2016. s/p acute exacerbation resolved with diuretics. Watch for overload. 8) Diabetes mellitus 2- fairly well controlled Status: Chronic Current Visit: Yes - Insulin sliding scale and accuchecks q6h 9) Severe protein calorie malnutrition - on TPN. Can wean once tolerating tubefeeds at goal. Supplementation. Nutrition consulted. DVT prophylaxis- Lovenox renally dosed. Pt is critically ill on the vent and requires intubation at this time. Weaning trial per pulm. 32 minutes spent with this patient. D/W nurse. D/W [facility] ([facility]) and updated by phone. All questions answered.
--- NOTE | 2016-09-29 07:59 | XRay Report ---
XR chest 1V portable Indication: Ventilator Comparison: Chest x-ray dated September 28, 2016 Technique: Single frontal view of the chest. Findings: The cardiomediastinal silhouette is stable in configuration. Continued cardiomegaly. Endotracheal tube and right-sided central venous catheter appear grossly unchanged. Cardiac pacemaker apparatus again noted. Continued prominence of bilateral interstitial lung markings. Mildly increased aeration of the lungs bilaterally. Visualized osseous and surrounding soft tissue structures appear grossly unchanged.. IMPRESSION: No significant interval change. PROCEDURE INTERPRETED AT [facility] DEPARTMENT OF RADIOLOGY Final Report Signed by: Dr Osman Willoughby
--- NOTE | 2016-09-29 08:28 | Pulmonology Progress Note ---
Pulmonary - PN: Subj Interval history: This 81-year-old black female whom I saw in pulmonary consultation on 09/25/2016. I was asked to manage her pulmonary problems and her mechanical ventilation. Patient originally been admitted with small bowel obstruction and septic shock. She also had acute kidney injury and she was dehydrated and she had mild elevation of her troponins. She had acute renal failure with hypotension and her lactic acids were elevated 6.6 and creatinine was 3.6. Dr. Henrry Moore saw in surgery consultation she was treated this conservatively. From pulmonary standpoint she became exhausted on the night of 09/24/2016 and reached a point that she could not continue to breathe and she required intubation mechanical ventilation. My impressions are. 1. Right lower lung, left upper lung and left lower lung pneumonia with atelectasis. This patient's had small bowel obstruction with nausea and vomiting. I suspect we have aspiration with bacterial superinfection. 2. Small bowel obstruction. Patient's had no bowel movements but she is developing bowel sounds. 3. Insulin-dependent diabetes mellitus 4. History of high blood pressure 5. COPD/asthma 6. Cardiac pacemaker 7. Breast cancer. 2014 8. Obesity 9. Former smoker 10. Acute on chronic renal failure. 09/26/2016. Earlier today this patient was evaluated with fiberoptic bronchoscopy . She had retained secretions bilaterally. She had evidence of mild gastric acid injury which is most prominent in the left upper lung and left lower lung and right lower lung. Multiple specimens were sent for cultures. She tolerated procedure well. Pre-bronchoscopy chest x-ray showed a fairly dense left lower lung infiltrate. There are scattered infiltrates in the right upper and right lower lung. There are no positive cultures. Sputum Gram stain from showed many gram-positive cocci. On mechanical ventilation with FiO2 of 50% ABGs show pH 7.395, PCO2 37, PO2 157 and bicarbonate 23. Electrolytes are close to normal. Creatinine is 2.10 with a BUN of 74. White count is elevated at 26,000 with 79 segs 6 lymphs and 10 monos. H&H is dropped to 9.9/ 31.0 and platelets are 224,000. Glucoses are elevated. Doppler venogram showed no evidence of deep venous thrombophlebitis. This patient's on stage to the weaning protocol. She was tried on a T-tube for short time and did not terrible. Will continue present protocols and make sure she is also on physical therapy protocol. 09/27/2016. Today's chest x-ray shows improvement. There is better variation. Patient has cardiomegaly. Her sputum is growing E. coli and methicillin- resistant staph aureus. Gram-positive cocci gram-negative rods are growing from bronchoscopy specimens taken 2016. This patient originally presented with small bowel obstruction was covered with GI medicines. The present time I have left her on vancomycin. I have stopped her Levaquin and I have stopped her Cleocin. I have added Fortaz. I have consulted infectious disease to help with management. White blood cell count remains elevated at 28,900 with 83 segs. H&H is 9.2/28.1. Platelets of 203,000. Creatinine is 2.00 with a BUN of 76. Electrolytes are normal. C-reactive protein is elevated at 9.98. Vancomycin trough level is 4.8. This is being managed by pharmacology. ABGs on FiO2 of 40% and mechanical ventilation showed pH of 7.445, PCO2 of 33, PO2 of 136 and bicarb of 22.2. The patient still in stage III to weaning protocol. Physical therapy protocol as previously been ordered. 09/28/2016. I appreciate Dr. Tirado's infectious disease consultation. Today's chest x-ray shows some mild alveolar infiltrate in the right lower lung the left upper lung. Left lower lung is not well seen. Patient's sputum and bronchoscopy specimens are growing E. coli and methicillin-resistant staph aureus. She is now been advanced to stage V the weaning protocol. ABGs are stable. White count remains elevated 29,400. H&H is stable at 10.0/30.6 and platelets are 259,000. Electrolytes are normal. Creatinine is dropped to 1.80 with a BUN of 75. 09/29/2016. Today's chest x-ray shows cardiomegaly. There are increased interstitial markings in the medial basal segment of the right lower lung and also in the left perihilar area. These are resolving infiltrates. There is no congestive heart failure. Patient's on stage V the weaning protocol. ABGs on mechanical ventilation FiO2 40% shows a pH of 7.48, PCO2 of 30.6, PO2 of 152 and a bicarb of 24.6. Electrolytes are normal. Creatinine is 1.6 with a BUN of 66 white count remains elevated 26,000 with 82% segs H&H is 9.9/29.9 and platelets of 293,000. Bronchoscopy specimens grew E. coli and methicillin- resistant staph aureus which would be in treated by infectious disease Physical exam. Vital signs. See below Neurologic. Patient sedated but she appears to move all fours. Face is symmetrical. Tongue is very large Neck is symmetrical no meningismus Chest reveals prominent large airway congestion Heart no gallop Abdomen rare bowel sounds Lower extremities. Chronic venous stasis. No evidence of deep venous thrombophlebitis. Lymphatics. No submandibular cervical supraclavicular adenopathy. Skin the face and hands show no cancerous infectious lesions. No other areas of skin were examined The remainder of the physical exam is negative Plan. 09/25/2006 1. Agree with antibiotics. Levaquin and Flagyl. Vancomycin 2. Fiberoptic bronchoscopy 3. Patient's on pressor agents to support of breath blood pressure at the present time 4. Proton pump inhibitor protocol 5. Agree with deep venous thrombophlebitis prevention protocol 6. Mechanical ventilation weaning protocol 7. Mechanical ventilation physical therapy protocol 8. Daily chest x-ray ABGs and lab 9. Doppler venograms of lower extremity 10. See orders. 11. Sputum for Gram stain culture and sensitivity 09/26/2016. 1. See today's note above. 2. Check bronchoscopy specimen 3. All applicable protocols Home Medications 09/27/2016. 1. Sputum specimens are positive for E. coli and methicillin-resistant staph aureus. See today's note above about antibiotic changes made. Infectious disease has been consulted. 2. Continue weaning protocol 3. Continue daily ABGs chest x-ray and lab. 09/28/2016. 1. See today's note above. 2. Continue daily chest x-ray, ABGs and lab. 3. Stage V weaning protocol 4. Physical therapy protocol 09/29/2016. 1. See today's note above. 2. Daily chest x-ray, ABGs and lab. 3. Weaning protocol 4. Physical therapy protocol 5. Tongue is very large I hope this does not become a problem with weaning. The patient is not on MILDRED inhibitors or carbs. I do not see any skin rash. Exam (Progress Note) - Constitutional Vitals: Period Temp Pulse Resp BP Sys/Quezada Pulse Ox Last 24 Hr 97.8 F-98.1 F 70-86 12-35 103-141/49-77 98-100 Results - Labs CBC & BMP: 09/29/16 04:50 09/29/16 04:50
[2016-09-29] MEDS: INSULIN GLARGINE 100 UNIT/ML SUBCUT SCH (08:31)
[2016-09-29] MEDS: MUPIROCIN 2% OINT 22 GM TUBE TOP SCH ×2 (08:39→20:58)
[2016-09-29] MEDS: LEVOTHYROXINE 100 MCG VIAL IV SCH (08:39)
--- NOTE | 2016-09-29 09:40 | Infectious Disease Progress ---
Assessment and Plan (1) Pneumonia Status: Acute Assessment and plan: Probably from aspiration. MRSA and E. coli cultured. Recommendations: Continue cefazolin and vancomycin. Renal function has been monitored closely on vancomycin. Follow levels; goal trough level of about 15. Current Visit: Yes (2) COPD (chronic obstructive pulmonary disease) Status: Chronic Current Visit: Yes (3) Chronic renal insufficiency Status: Chronic Assessment and plan: Acute on chronic renal insufficiency. Renal function will have to be monitored closely on the vancomycin. It is improved a little today compared to yesterday. Current Visit: Yes (4) Diabetes mellitus Status: Chronic Current Visit: Yes (5) Hypertension Status: Chronic Current Visit: Yes Infectious Disease - PN: Subj Interval history: No new events. Patient afebrile. She is progressing well with vent weaning. Infectious Disease Exam (PN) - Constitutional Vitals: Temp Pulse Resp BP Pulse Ox 97.9 F 80 17 103/53 100 09/29/16 04:00 09/29/16 08:07 09/29/16 08:07 09/29/16 07:00 09/29/16 08:07 General appearance: no acute distress Exam: General appearance: arousable - Eye Eye exam: Present: EOMI. no icterus Pupils: Present: VALENTINA - ENT ENT exam: ET tube in situ - Respiratory Respiratory exam: vesicular BS, no crepitations or wheezes heard - Cardiovascular Cardiovascular exam: regular rate and rhythm, no murmurs - GI/Abdominal GI/Abdominal exam: normal bowel sounds, soft, non-tender, no organomegaly or mass - Extremities Exam Extremities exam: no edema - Skin Skin exam: no rash Results - Labs CBC & BMP: 09/29/16 04:50 09/29/16 04:50 Lab Results: I have reviewed the past 24 hour labs
[2016-09-29] MEDS: VANCOMYCIN INJ 1,000 MG in SODIUM CHLORIDE 0.9% 250 ML IV SCH (10:34)
[2016-09-29] MEDS: DESITIN 4OZ/NYSTATIN 15 GRAM MIXTURE PASTE TOP SCH ×2 (12:13→20:58)
--- NOTE | 2016-09-29 13:28 | Cardiology Progress Note ---
I, Paris Dover, RN, am scribing for, and in the presence of, Kedar Young MD 13:27. Assessment and Plan (1) Elevated troponin Status: Acute Assessment and plan: Initial assessment and plan 09/26/16: No evidence overt overt ischemia Had deterioration over the weekend and had to be intubated Dr. Quiros did bronchoscopy today and found some lung injury due to gastric reflux Continue to support Watch for any signs or symptoms of ischemia Initial rise in troponins could have been due to sepsis. Prognosis remains guarded. Assessment and plan 09/27/16: Has had significant ventricular ectopy. Repleted low magnesium with IV magnesium supplementation Because of increased nonsustained VT, stopped dobutamine. This lessen the VT. Off pressure for now. Remains intubated Continue slow weaning Prognosis remains guarded. Assessment and plan 09/28/2016: off pressors at this time Blood pressure is okay Neurological seems slightly better. Is following some commands Infectious disease is being consulted. Continue to monitor rhythm and blood pressure Of note, I saw the patient on 09/28/16 at about noon. This note is being finished at a later time. Current Visit: Yes (2) Dehydration Status: Acute Current Visit: Yes (3) Chronic renal insufficiency Status: Chronic Current Visit: Yes (4) Hypertension Status: Chronic Current Visit: Yes (5) Nonischemic cardiomyopathy Status: Chronic Current Visit: Yes (6) COPD (chronic obstructive pulmonary disease) Status: Chronic Current Visit: Yes (7) Diabetes mellitus Status: Chronic Current Visit: Yes (8) History of breast cancer Status: Chronic Current Visit: No (9) Status post placement of cardiac pacemaker Status: Chronic Current Visit: Yes (10) On mechanically assisted ventilation Status: Acute Current Visit: Yes Cardiology - PN: Subj Interval history: FACULTY NEUROPSYCHOLOGIST: DR. BRAVO PCP: DR. MINA ROBLES CATERING COORDINATOR: DR. ABBE CHAWLA Ms. Oconnell is seen in the intensive care unit. She is intubated on mechanical ventilation with oxygen at 40%, O2 sat 100%. This morning she is awake and will follow simple commands. accountant currently shows sinus rhythm heart rates in the 80s. She is still off pressors, blood pressure 124/55. Her H&H is improved to 10 and 30.6. Creatinine is slightly improved at 1.80. Infectious disease has been consulted and is following for pneumonia. Exam (Progress Note) - Constitutional Vitals: Period Temp Pulse Resp BP Sys/Quez[place] Pulse Ox Last 24 Hr 98.6 F-99.4 F 76-95 12-35 92-137/44-77 93-100 General appearance: other (Intubated on mechanical ventilation) - Head Head exam: Absent: abrasion, hematoma - Eye Eye exam: Absent: periorbital swelling, laceration to eyelids - ENT ENT exam: Present: other (NG tube, ET tube) - Respiratory Respiratory exam: Present: other (Intubated on mechanical ventilation, coarse breath sounds). Absent: accessory muscle use - Cardiovascular Cardiovascular exam: Present: regular rate and rhythm. Absent: rubs - GI/Abdominal GI/Abdominal exam: Present: hypoactive bowel sounds, soft. Absent: distended - Neurological Exam Neurological exam: Present: alert (Response to verbal stimuli, will follow simple commands) - Psychiatric Psychiatric exam: Present: other (Unable to assess due to status) - Skin Skin exam: Present: warm, dry Result/EKG - Labs CBC & BMP: 09/29/16 04:50 09/29/16 04:50 Lab Results: I have reviewed the past 24 hour labs Labs: Laboratory Results - last 24 hr 09/27/16 09/27/16 09/27/16 08:45 08:45 08:45 WBC 28.9 H RBC 3.14 L Hgb 9.2 L Hct 28.1 L MCV 89.5 MCH 29 MCHC 32.7 RDW 15.9 Plt Count 203 MPV 12.1 H Neut % (Auto) 83.2 H Lymph % (Auto) 5.5 L [place] % (Auto) 6.2 Eos % (Auto) 2.9 Baso % (Auto) 0.2 Neut # (Auto) 24.0 H Lymph # (Auto) 1.6 [place] # (Auto) 1.8 H Eos # (Auto) 0.8 Baso # (Auto) 0.1 Total Counted 100 Immature Gran % 2.0 Nucleated RBC % 0.0 Immature Gran # 0.57 Segmented Neutrophils 88 H Band Neutrophils 4 Lymphocytes 5 L Monocytes 3 Eosinophils Metamyelocytes Nucleated RBCs # 0.00 Platelet Estimate Normal Hypochromasia 1+ Microcytosis Slight Ovalocytes Slight Morphology Comment Peripheral Blood Smear Not Reportable Peripher Smr Path Cons ESR W[place] 116 H ABG pH ABG pCO2 ABG pO2 ABG HCO3 ABG Total CO2 ABG O2 Saturation ABG Base Excess FiO2 Sodium Potassium Chloride Carbon Dioxide Anion Gap BUN Creatinine GFR Calculation BUN/Creatinine Ratio Glucose POC Glucose Calculated Osmolality Calcium Magnesium C-Reactive Protein 9.98 H Vancomycin Trough 09/27/16 09/27/16 09/27/16 08:47 12:08 18:08 WBC RBC Hgb Hct MCV MCH MCHC RDW Plt Count MPV Neut % (Auto) Lymph % (Auto) [place] % (Auto) Eos % (Auto) Baso % (Auto) Neut # (Auto) Lymph # (Auto) [place] # (Auto) Eos # (Auto) Baso # (Auto) Total Counted Immature Gran % Nucleated RBC % Immature Gran # Segmented Neutrophils Band Neutrophils Lymphocytes Monocytes Eosinophils Metamyelocytes Nucleated RBCs # Platelet Estimate Hypochromasia Microcytosis Ovalocytes Morphology Comment Peripheral Blood Smear Peripher Smr Path Cons ESR [place] ABG pH ABG pCO2 ABG pO2 ABG HCO3 ABG Total CO2 ABG O2 Saturation ABG Base Excess FiO2 Sodium Potassium Chloride Carbon Dioxide Anion Gap BUN Creatinine GFR Calculation BUN/Creatinine Ratio Glucose POC Glucose 218 H 179 H Calculated Osmolality Calcium Magnesium C-Reactive Protein Vancomycin Trough 4.8 L 09/27/16 09/28/16 09/28/16 23:26 02:55 05:00 WBC RBC Hgb Hct MCV MCH MCHC RDW Plt Count MPV Neut % (Auto) Lymph % (Auto) [place] % (Auto) Eos % (Auto) Baso % (Auto) Neut # (Auto) Lymph # (Auto) [place] # (Auto) Eos # (Auto) Baso # (Auto) Total Counted Immature Gran % Nucleated RBC % Immature Gran # Segmented Neutrophils Band Neutrophils Lymphocytes Monocytes Eosinophils Metamyelocytes Nucleated RBCs # Platelet Estimate Hypochromasia Microcytosis Ovalocytes Morphology Comment Peripheral Blood Smear Peripher Smr Path Cons ESR [place] 110 H ABG pH 7.431 ABG pCO2 34.1 L ABG pO2 139.0 H ABG HCO3 23.5 ABG Total CO2 20.8 L ABG O2 Saturation 99.2 ABG Base Excess -1.1 FiO2 40.00 Sodium Potassium Chloride Carbon Dioxide Anion Gap BUN Creatinine GFR Calculation BUN/Creatinine Ratio Glucose POC Glucose 219 H Calculated Osmolality Calcium Magnesium C-Reactive Protein Vancomycin Trough 09/28/16 09/28/16 09/28/16 05:00 05:00 05:00 WBC 29.4 H RBC 3.57 L Hgb 10.0 L Hct 30.6 L MCV 85.7 L MCH 28 MCHC 32.7 RDW 15.6 Plt Count 259 D MPV 12.0 Neut % (Auto) 82.3 H Lymph % (Auto) 5.9 L [place] % (Auto) 7.5 Eos % (Auto) 2.4 Baso % (Auto) 0.3 Neut # (Auto) 24.2 H Lymph # (Auto) 1.8 [place] # (Auto) 2.2 H Eos # (Auto) 0.7 Baso # (Auto) 0.1 Total Counted 100 Immature Gran % 1.6 Nucleated RBC % 0.0 Immature Gran # 0.46 Segmented Neutrophils 87 H Band Neutrophils Lymphocytes 5 L Monocytes 6 Eosinophils 1 Metamyelocytes 1 Nucleated RBCs # 0.00 Platelet Estimate Normal Hypochromasia Slight Microcytosis Slight Ovalocytes Morphology Comment Peripheral Blood Smear Peripher Smr Path Cons ESR [place] ABG pH ABG pCO2 ABG pO2 ABG HCO3 ABG Total CO2 ABG O2 Saturation ABG Base Excess FiO2 Sodium 141 Potassium 4.7 Chloride 110 H Carbon Dioxide 23 Anion Gap 12.7 BUN 75 H Creatinine 1.80 H GFR Calculation 30 BUN/Creatinine Ratio 41.00 H Glucose 191 H POC Glucose Calculated Osmolality 307.3 H Calcium 7.9 L Magnesium 2.8 H C-Reactive Protein 9.54 H Vancomycin Trough 09/28/16 05:28 WBC RBC Hgb Hct MCV MCH MCHC RDW Plt Count MPV Neut % (Auto) Lymph % (Auto) [place] % (Auto) Eos % (Auto) Baso % (Auto) Neut # (Auto) Lymph # (Auto) [place] # (Auto) Eos # (Auto) Baso # (Auto) Total Counted Immature Gran % Nucleated RBC % Immature Gran # Segmented Neutrophils Band Neutrophils Lymphocytes Monocytes Eosinophils Metamyelocytes Nucleated RBCs # Platelet Estimate Hypochromasia Microcytosis Ovalocytes Morphology Comment Peripheral Blood Smear Peripher Smr Path Cons ESR [place] ABG pH ABG pCO2 ABG pO2 ABG HCO3 ABG Total CO2 ABG O2 Saturation ABG Base Excess FiO2 Sodium Potassium Chloride Carbon Dioxide Anion Gap BUN Creatinine GFR Calculation BUN/Creatinine Ratio Glucose POC Glucose 194 H Calculated Osmolality Calcium Magnesium C-Reactive Protein Vancomycin Trough - Diagnostic Findings Procedure: Chest x-ray: report reviewed by me - EKG EKG results: interpreted by ks EKG shows: sinus rhythm IHannah Dale, MD, personally performed the services described in this documentation, ascribed by Paris Dover RN in my presence, and it is both accurate and complete 327 .
[2016-09-29] MEDS: ENOXAPARIN 30 MG/0.3 ML SYRINGE SUBCUT SCH (15:25)
--- NOTE | 2016-09-29 21:51 | Cardiology Progress Note ---
Stanislaw Foley April, RN, am scribing for, and in the presence of, Kedar Young MD 21:50. Assessment and Plan (1) Elevated troponin Status: Acute Assessment and plan: Initial assessment and plan 09/26/16: No evidence overt overt ischemia Had deterioration over the weekend and had to be intubated Dr. Quiros did bronchoscopy today and found some lung injury due to gastric reflux Continue to support Watch for any signs or symptoms of ischemia Initial rise in troponins could have been due to sepsis. Prognosis remains guarded. Assessment and plan 09/27/16: Has had significant ventricular ectopy. Repleted low magnesium with IV magnesium supplementation Because of increased nonsustained VT, stopped dobutamine. This lessen the VT. Off pressure for now. Remains intubated Continue slow weaning Prognosis remains guarded. Assessment and plan 09/28/2016: off pressors at this time Blood pressure is okay Neurological seems slightly better. Is following some commands Infectious disease is being consulted. Continue to monitor rhythm and blood pressure Assessment and plan 09/29/2016, Given 3 units of packed blood cells while on hemodialysis no change in neurological status. Trying to slowly wean Current Visit: Yes (2) Dehydration Status: Acute Current Visit: Yes (3) Chronic renal insufficiency Status: Chronic Current Visit: Yes (4) Hypertension Status: Chronic Current Visit: Yes (5) Nonischemic cardiomyopathy Status: Chronic Current Visit: Yes (6) COPD (chronic obstructive pulmonary disease) Status: Chronic Current Visit: Yes (7) Diabetes mellitus Status: Chronic Current Visit: Yes (8) History of breast cancer Status: Chronic Current Visit: No (9) Status post placement of cardiac pacemaker Status: Chronic Current Visit: Yes (10) On mechanically assisted ventilation Status: Acute Current Visit: Yes Cardiology - PN: Subj Interval history: ASSOCIATE PROFESSOR OF VIOLIN: DR. BRAVO PCP: DR. MINA ROBLES STORE RECEIVER: DR. ABBE CHAWLA Ms. Oconnell is seen in the intensive care unit. She is intubated on mechanical ventilation with oxygen at 40%, O2 sat 100%. Vent weaning in progress. This morning she is awake and will open her eyes but not follow simple commands. security monitor currently shows sinus rhythm heart rates in the 60s. She is still off pressors, blood pressure 111/57. Creatinine continues to improve, is 1.60 today. Exam (Progress Note) - Constitutional Vitals: Period Temp Pulse Resp BP Sys/[place] Pulse Ox Last 24 Hr 97.8 F-98.1 F 70-85 12-35 103-141/49-77 98-100 Result/EKG - Labs CBC & BMP: 09/29/16 04:50 09/29/16 04:50 Labs: Laboratory Results - last 24 hr 09/28/16 09/28/16 09/28/16 11:13 17:49 23:51 WBC RBC Hgb Hct MCV MCH MCHC RDW Plt Count MPV Neut % (Auto) Lymph % (Auto) [place] % (Auto) Eos % (Auto) Baso % (Auto) Neut # (Auto) Lymph # (Auto) [place] # (Auto) Eos # (Auto) Baso # (Auto) Total Counted Immature Gran % Nucleated RBC % Immature Gran # Segmented Neutrophils Band Neutrophils Lymphocytes Monocytes Eosinophils Nucleated RBCs # Platelet Estimate Hypochromasia Microcytosis Ovalocytes Morphology Comment ABG pH ABG pCO2 ABG pO2 ABG HCO3 ABG Total CO2 ABG O2 Saturation ABG Base Excess FiO2 Sodium Potassium Chloride Carbon Dioxide Anion Gap BUN Creatinine GFR Calculation BUN/Creatinine Ratio Glucose POC Glucose 259 H 187 H 122 H Calculated Osmolality Calcium Phosphorus Magnesium Prealbumin Triglycerides 09/29/16 09/29/16 09/29/16 03:12 04:50 04:50 WBC RBC Hgb Hct MCV MCH MCHC RDW Plt Count MPV Neut % (Auto) Lymph % (Auto) [place] % (Auto) Eos % (Auto) Baso % (Auto) Neut # (Auto) Lymph # (Auto) [place] # (Auto) Eos # (Auto) Baso # (Auto) Total Counted Immature Gran % Nucleated RBC % Immature Gran # Segmented Neutrophils Band Neutrophils Lymphocytes Monocytes Eosinophils Nucleated RBCs # Platelet Estimate Hypochromasia Microcytosis Ovalocytes Morphology Comment ABG pH 7.484 H ABG pCO2 30.6 L ABG pO2 152.0 H ABG HCO3 24.6 ABG Total CO2 20.9 L ABG O2 Saturation 99.1 ABG Base Excess 0.2 FiO2 40.00 Sodium 142 Potassium 5.1 Chloride 111 H Carbon Dioxide 25 Anion Gap 11.1 BUN 66 H Creatinine 1.60 H GFR Calculation 34 BUN/Creatinine Ratio 41.00 H Glucose 179 H POC Glucose Calculated Osmolality 305.1 H Calcium 8.2 L Phosphorus 2.8 Magnesium 3.0 H Prealbumin 10.2 L Triglycerides 100 09/29/16 09/29/16 04:50 05:47 WBC 26.1 H RBC 3.44 L Hgb 9.9 L Hct 29.9 L MCV 86.9 L MCH 29 MCHC 33.1 RDW 15.8 Plt Count 293 MPV 12.2 H Neut % (Auto) 82.3 H Lymph % (Auto) 6.3 L [place] % (Auto) 7.1 Eos % (Auto) 2.1 Baso % (Auto) 0.2 Neut # (Auto) 21.5 H Lymph # (Auto) 1.7 [place] # (Auto) 1.9 H Eos # (Auto) 0.6 Baso # (Auto) 0.1 Total Counted 100 Immature Gran % 2.0 Nucleated RBC % 0.0 Immature Gran # 0.52 Segmented Neutrophils 87 H Band Neutrophils 1 Lymphocytes 5 L Monocytes 5 Eosinophils 2 Nucleated RBCs # 0.00 Platelet Estimate Adequate Hypochromasia 1+ Microcytosis Slight Ovalocytes Slight Morphology Comment ABG pH ABG pCO2 ABG pO2 ABG HCO3 ABG Total CO2 ABG O2 Saturation ABG Base Excess FiO2 Sodium Potassium Chloride Carbon Dioxide Anion Gap BUN Creatinine GFR Calculation BUN/Creatinine Ratio Glucose POC Glucose 138 H Calculated Osmolality Calcium Phosphorus Magnesium Prealbumin Triglycerides I, Kedar Young MD, personally performed the services described in this documentation, ascribed by Paris Dover RN in my presence, and it is both accurate and complete .
[2016-09-29] MEDS: MORPHINE 2 MG/1 ML SYRINGE IV PRN (22:32)
[2016-09-30] MEDS: INSULIN LISPRO 100 UNIT/ML SUBCUT SCH ×4 (00:45→18:32)
[2016-09-30] MEDS: LORazepam 2 MG/1 ML VIAL IV PRN ×3 (02:15→19:52)
[2016-09-30] MEDS: ALBUTEROL/IPRATROPIUM 3 ML NEB RESP TX SCH ×5 (03:49→19:34)
[2016-09-30 03:50] LABS: ABG Base Excess 0.8 MMOL/L (-2.5-2.5); ABG HCO3 25.2 MMOL/L (20-26); ABG Oxygen Saturation 99.1 % (95-100); ABG PCO2 36.2 MM HG (35-48); ABG PH 7.442 (7.35-7.45); ABG TCO2 22.2 MMOL/L (23-27); Allen Test Positive; Pt O2 Delivery Device Ventilator
[2016-09-30 04:21] LABS: Basophils # 0.1 10*3/uL (0.0-0.2); Basophils % 0.3 % (0.0-0.8); Eosinophils # 0.5 10*3/uL (0.0-0.87); Eosinophils % 2.3 % (0.00-10.9); Hematocrit 29.6 VOL% (35.7-47.0); Hemoglobin 9.8 GM/DL (12.0-16.0); Immature Granulocytes % 1.6 %; Immature Granulocytes Absolute 0.37 #; Lymphocytes # 1.5 10*3/uL (1.4-4.0); Lymphocytes % 6.4 % (21.3-54.2); Mean Corpuscular HGB Conc 33.1 GM/DL (32-36); Mean Corpuscular Hemoglobin 29 PG (27-34); Mean Corpuscular Volume 87.8 FL (87-102); Mean Platelet Volume 11.7 FL (9.6-12.0); Monocytes # 1.9 10*3/uL (0.11-0.8); Monocytes % 8.3 % (1.7-12.7); Neutrophils # 18.5 10*3/uL (1.4-7.4); Neutrophils % 81.1 % (38.7-73.9); Platelet Count 338 T/CUMM (130-400); Red Blood Count 3.37 MC/CUMM (3.8-5.5); Red Cell Distribution Width 15.6 % (9.3-17.3); White Blood Count 22.9 T/CUMM (4-12)
[2016-09-30 04:51] LABS: Calcium 8.7 MG/DL (8.5-10.1); Osmolality,Calculated 305.6 MOS/KG (273-304); Potassium 5.3 MMOL/L (3.5-5.1)
[2016-09-30 05:10] LABS: Band Neutrophils 1 % (0-10); Eosinophils 1 % (0-10); Lymphocytes 4 % (20-55); Platelet Estimate Adequate; Segmented Neutrophils 85 % (50-85); Total Cells Counted 100
[2016-09-30 05:11] LABS: Hypochromasia Slight; Microcytosis Slight
[2016-09-30] MEDS: ALUMINUM/MAGNES/SIMETH MAX STR 30 ML UDCUP PER TUBE SCH ×4 (06:09→21:26)
[2016-09-30] MEDS ORDERED: SODIUM POLYSTYRENE SULFATE 15 GM/60 ML BOTTLE PO STA (07:26)
--- NOTE | 2016-09-30 07:27 | Hospitalist Progress Note ---
Hospitalist: Subjective Interval history: Pt was tolerating tubefeeds until this am according to the nurse when she had 270 cc residual. TFs on hold currently. No fever. No BM recorded over the last 24 hours. Doing well on CPAP Exam - Constitutional Vitals: Period Temp Pulse Resp BP Sys/[place] Pulse Ox Last 24 Hr 96.8 F-98.6 F 72-99 12-40 113-151/46-96 98-100 Exam: GEN: Intubated and awake, following simple commands HEENT: sclera clear NECK: supple, trachea midline, no LAD CV: RRR no M LUNGS: CTAB anteriorly, diminished at the bases ABD: soft, +BS, no HSM or masses appreciated. EXT: warm and well perfused. No clubbing, cyanosis or edema Results - Labs CBC & BMP: 09/30/16 04:00 09/30/16 04:00 - Impressions (1) Sepsis with septic shock due to aspiration pneumonia due to MRSA and E Coli and SBO- resolved Status: Acute Assessment and plan: - Continue IV antibiotics, bronchodilators - vent management per pulmonology - weaning - off Neonephrine. 2) Acute hypoxic and hypercarbic respiratory failure due to aspiration pneumonia in a patient with COPD- improving -FOB 09/26 showed evidence of aspiration. BAL cultures show MRSA and E Coli -09/25 Sputum culture growing MRSA and E COli -Cont Vanc day (09/25- ), Levaquin (09/20-09/27 ) and Clindamycin (09/26-09/27 ). Antibiotics changed to Vanc and Ceftaz per Pulm 09/27. Now on Vanc and Cefazolin by ID (09/28- ). -WBC decreasing. -Smear review reactive/infectious (pt has history of breast cancer) -CT chest not done. CT abd, pelvis 09/26 reviewed and showed resolution of SBO -Vent management per pulm--weaning -Cont bronchodilators 3) Acute SBO- resolved - Off TPN - Dr Allred (surgery) following - Cont Tubefeeds as tolerated. 4) DEMETRIUS on CKD stage3 now with hyperkalemia- reportedly creatinine baseline is 1.6. Today 1.5- improved - Off IVF. Serial labs. Give kayexalate and recheck labs 5) COPD- not in exacerbation - Cont Bronchodilators. 6) Chronic hypothyroidism- - Synthroid 25mcg PT daily. (takes armor thyroid at home.) 7) Chronic systolic CHF- EF 35-40% per ECHO 08/2016. s/p acute exacerbation resolved with diuretics. Watch for overload. 8) Diabetes mellitus 2- fairly well controlled Status: Chronic Current Visit: Yes - Insulin sliding scale and accuchecks q6h 9) Severe protein calorie malnutrition - tubefeeds as tolerated. Off TPN. Nutrition consulted. DVT prophylaxis- Lovenox renally dosed. Weaning per pulm. 25 minutes spent with this patient. D/W nurse. Will update [facility] later.
--- NOTE | 2016-09-30 07:51 | XRay Report ---
XR chest 1V portable Indication: Ventilator Comparison: Chest x-ray dated September 29, 2016 Technique: Single frontal view of the chest. Findings: Continued cardiomegaly. Endotracheal tube projects approximately 1.7 cm above the ashleigh. Cardiac pacemaker apparatus again noted. Right-sided central venous catheter tip appears grossly unchanged. Continued bilateral pulmonary interstitial prominence. Small left pleural fluid not excluded. Visualized osseous and surrounding soft tissue structures appear grossly unchanged. IMPRESSION: No significant interval change. PROCEDURE INTERPRETED AT [facility] DEPARTMENT OF RADIOLOGY Final Report Signed by: Dr Osman Willoughby
[2016-09-30] MEDS: LEVOTHYROXINE 25 MCG TABLET PO SCH (09:47)
[2016-09-30] MEDS: DESITIN 4OZ/NYSTATIN 15 GRAM MIXTURE PASTE TOP SCH ×2 (09:47→21:26)
[2016-09-30] MEDS: INSULIN GLARGINE 100 UNIT/ML SUBCUT SCH (09:47)
[2016-09-30] MEDS: MUPIROCIN 2% OINT 22 GM TUBE TOP SCH ×2 (09:47→21:26)
[2016-09-30] MEDS: VANCOMYCIN INJ 1,000 MG in SODIUM CHLORIDE 0.9% 250 ML IV SCH (10:05)
--- NOTE | 2016-09-30 10:22 | Pulmonology Progress Note ---
Pulmonary - PN: Subj Interval history: This 81-year-old black female whom I saw in pulmonary consultation on 09/25/2016. I was asked to manage her pulmonary problems and her mechanical ventilation. Patient originally been admitted with small bowel obstruction and septic shock. She also had acute kidney injury and she was dehydrated and she had mild elevation of her troponins. She had acute renal failure with hypotension and her lactic acids were elevated 6.6 and creatinine was 3.6. Dr. Henrry Moore saw in surgery consultation she was treated this conservatively. From pulmonary standpoint she became exhausted on the night of 09/24/2016 and reached a point that she could not continue to breathe and she required intubation mechanical ventilation. My impressions are. 1. Right lower lung, left upper lung and left lower lung pneumonia with atelectasis. This patient's had small bowel obstruction with nausea and vomiting. I suspect we have aspiration with bacterial superinfection. 2. Small bowel obstruction. Patient's had no bowel movements but she is developing bowel sounds. 3. Insulin-dependent diabetes mellitus 4. History of high blood pressure 5. COPD/asthma 6. Cardiac pacemaker 7. Breast cancer. 2014 8. Obesity 9. Former smoker 10. Acute on chronic renal failure. 09/26/2016. Earlier today this patient was evaluated with fiberoptic bronchoscopy . She had retained secretions bilaterally. She had evidence of mild gastric acid injury which is most prominent in the left upper lung and left lower lung and right lower lung. Multiple specimens were sent for cultures. She tolerated procedure well. Pre-bronchoscopy chest x-ray showed a fairly dense left lower lung infiltrate. There are scattered infiltrates in the right upper and right lower lung. There are no positive cultures. Sputum Gram stain from showed many gram-positive cocci. On mechanical ventilation with FiO2 of 50% ABGs show pH 7.395, PCO2 37, PO2 157 and bicarbonate 23. Electrolytes are close to normal. Creatinine is 2.10 with a BUN of 74. White count is elevated at 26,000 with 79 segs 6 lymphs and 10 monos. H&H is dropped to 9.9/ 31.0 and platelets are 224,000. Glucoses are elevated. Doppler venogram showed no evidence of deep venous thrombophlebitis. This patient's on stage to the weaning protocol. She was tried on a T-tube for short time and did not terrible. Will continue present protocols and make sure she is also on physical therapy protocol. 09/27/2016. Today's chest x-ray shows improvement. There is better variation. Patient has cardiomegaly. Her sputum is growing E. coli and methicillin- resistant staph aureus. Gram-positive cocci gram-negative rods are growing from bronchoscopy specimens taken 2016. This patient originally presented with small bowel obstruction was covered with GI medicines. The present time I have left her on vancomycin. I have stopped her Levaquin and I have stopped her Cleocin. I have added Fortaz. I have consulted infectious disease to help with management. White blood cell count remains elevated at 28,900 with 83 segs. H&H is 9.2/28.1. Platelets of 203,000. Creatinine is 2.00 with a BUN of 76. Electrolytes are normal. C-reactive protein is elevated at 9.98. Vancomycin trough level is 4.8. This is being managed by pharmacology. ABGs on FiO2 of 40% and mechanical ventilation showed pH of 7.445, PCO2 of 33, PO2 of 136 and bicarb of 22.2. The patient still in stage III to weaning protocol. Physical therapy protocol as previously been ordered. 09/28/2016. I appreciate Dr. Tirado's infectious disease consultation. Today's chest x-ray shows some mild alveolar infiltrate in the right lower lung the left upper lung. Left lower lung is not well seen. Patient's sputum and bronchoscopy specimens are growing E. coli and methicillin-resistant staph aureus. She is now been advanced to stage V the weaning protocol. ABGs are stable. White count remains elevated 29,400. H&H is stable at 10.0/30.6 and platelets are 259,000. Electrolytes are normal. Creatinine is dropped to 1.80 with a BUN of 75. 09/29/2016. Today's chest x-ray shows cardiomegaly. There are increased interstitial markings in the medial basal segment of the right lower lung and also in the left perihilar area. These are resolving infiltrates. There is no congestive heart failure. Patient's on stage V the weaning protocol. ABGs on mechanical ventilation FiO2 40% shows a pH of 7.48, PCO2 of 30.6, PO2 of 152 and a bicarb of 24.6. Electrolytes are normal. Creatinine is 1.6 with a BUN of 66 white count remains elevated 26,000 with 82% segs H&H is 9.9/29.9 and platelets of 293,000. Bronchoscopy specimens grew E. coli and methicillin- resistant staph aureus which would be in treated by infectious disease 09/30/2016. This is a 81-year-old black female who was originally admitted with small bowel obstruction. She was treated conservatively in this included an NG tube with suction. Later on she became exhausted and required intubation mechanical ventilation. She has some element of aspiration and she had a lot of retained secretions. Bronchoscopy specimens have grown E. coli and methicillin-resistant staph aureus. Infectious diseases on the case. Today's chest x-ray shows cardiomegaly there is a residual right lower lung and left perihilar infiltrate. This is alveolar with some increased interstitial markings. Patient's on stage V of the weaning protocol. ABGs on mechanical ventilation and FiO2 40% shows a pH 7.44, PCO2 36, PO2 143 and a bicarb of 25. White count remains elevated 22,900. H&H is stable at 9.8/29.6. Platelets 338, 000. Creatinine is gradually fallen to 1.50 with a BUN of 51. We will continue the weaning protocol on this patient. We need careful attention to removal of pulmonary secretions. It is possible that she could be extubated in the next 3 or 4 days. She is recently been started on NG feedings. She had 270 cc of residual feedings this morning and I have asked that we change her back to IV hyperalimentation. She will need adequate nutrition in order to come off the ventilator. Physical exam. Vital signs. See below Neurologic. Patient sedated but she appears to move all fours. Face is symmetrical. Tongue is very large Neck is symmetrical no meningismus Chest reveals prominent large airway congestion Heart no gallop Abdomen rare bowel sounds Lower extremities. Chronic venous stasis. No evidence of deep venous thrombophlebitis. Lymphatics. No submandibular cervical supraclavicular adenopathy. Skin the face and hands show no cancerous infectious lesions. No other areas of skin were examined The remainder of the physical exam is negative Plan. 09/25/2006 1. Agree with antibiotics. Levaquin and Flagyl. Vancomycin 2. Fiberoptic bronchoscopy 3. Patient's on pressor agents to support of breath blood pressure at the present time 4. Proton pump inhibitor protocol 5. Agree with deep venous thrombophlebitis prevention protocol 6. Mechanical ventilation weaning protocol 7. Mechanical ventilation physical therapy protocol 8. Daily chest x-ray ABGs and lab 9. Doppler venograms of lower extremity 10. See orders. 11. Sputum for Gram stain culture and sensitivity 09/26/2016. 1. See today's note above. 2. Check bronchoscopy specimen 3. All applicable protocols Home Medications 09/27/2016. 1. Sputum specimens are positive for E. coli and methicillin-resistant staph aureus. See today's note above about antibiotic changes made. Infectious disease has been consulted. 2. Continue weaning protocol 3. Continue daily ABGs chest x-ray and lab. 09/28/2016. 1. See today's note above. 2. Continue daily chest x-ray, ABGs and lab. 3. Stage V weaning protocol 4. Physical therapy protocol 09/29/2016. 1. See today's note above. 2. Daily chest x-ray, ABGs and lab. 3. Weaning protocol 4. Physical therapy protocol 5. Tongue is very large I hope this does not become a problem with weaning. The patient is not on MILDRED inhibitors or carbs. I do not see any skin rash. 09/30/2016. 1. See today's note above. 2. Daily chest x-ray, ABGs and lab 3. Stage V weaning protocol 4. Physical therapy protocol. 5. Keep an eye on the patient's tongue. He is unusually large. Exam (Progress Note) - Constitutional Vitals: Period Temp Pulse Resp BP Sys/Que[place] Pulse Ox Last 24 Hr 97.9 F-98.6 F 72-104 12-45 113-151/46-79 98-100 Results - Labs CBC & BMP: 09/30/16 04:00 09/30/16 04:00
--- NOTE | 2016-09-30 10:53 | Infectious Disease Progress ---
Assessment and Plan (1) Pneumonia Status: Acute Assessment and plan: Probably from aspiration. MRSA and E. coli cultured. Recommendations: Continue cefazolin and vancomycin. Renal function has been monitored closely on vancomycin. Vanco has been therapeutic. Current Visit: Yes (2) COPD (chronic obstructive pulmonary disease) Status: Chronic Current Visit: Yes (3) Chronic renal insufficiency Status: Chronic Assessment and plan: Acute on chronic renal insufficiency. Renal function will have to be monitored closely on the vancomycin. Renal function slowly improving. Current Visit: Yes (4) Diabetes mellitus Status: Chronic Current Visit: Yes (5) Hypertension Status: Chronic Current Visit: Yes Infectious Disease - PN: Subj Interval history: Patient doing fairly okay no new events. Afebrile. Progressing with weaning. Infectious Disease Exam (PN) - Constitutional Vitals: Temp Pulse Resp BP Pulse Ox 98.2 F 104 H 45 H 124/56 100 09/30/16 04:00 09/30/16 08:50 09/30/16 08:50 09/30/16 08:50 09/30/16 08:50 General appearance: other (Intubated on mechanical ventilation) Exam: General appearance: arousable - Eye Eye exam: Present: EOMI. no icterus Pupils: Present: [place] - ENT ENT exam: ET tube in situ - Respiratory Respiratory exam: vesicular BS, no crepitations or wheezes heard - Cardiovascular Cardiovascular exam: regular rate and rhythm, no murmurs - GI/Abdominal GI/Abdominal exam: normal bowel sounds, soft, non-tender, no organomegaly or mass - Extremities Exam Extremities exam: no edema - Skin Skin exam: no rash Results - Labs CBC & BMP: 09/30/16 04:00 09/30/16 04:00 Lab Results: I have reviewed the past 24 hour labs
--- NOTE | 2016-09-30 12:22 | General Surgery Progress Note ---
Assessment and Plan (1) Small bowel obstruction Status: Acute Assessment and plan: Impression: Partial small bowel obstruction Plan: Patient was admitted with a partial small bowel obstruction. Past surgical history significant for a ventral hernia repair by Dr. Harvey approximately 7 8 months ago. She was volume deplete upon arrival and has been resuscitated effectively. She seemed to be improving with conservative treatment and had a pulmonary event requiring intubation. Possible aspiration pneumonia. Tube feeds were restarted and yesterday she seemed to be tolerating it well and was up to goal with loose stools. CT scan done in this time. Looks like the partial obstruction had resolved. This morning her residuals were 270. Tube feeds were held and rechecked at noon and they were 390. We will place the NG tube to suction. White blood cell count improving on antibiotics. Current Visit: No Subjective Narrative: Remains intubated and sedated. Gastric residuals elevated. Still having bowel movements. Exam - Constitutional Vitals: Period Temp Pulse Resp BP Sys/Quezada Pulse Ox Last 24 Hr 97.9 F-98.5 F 72-104 15-45 113-151/46-79 98-100 General appearance: no acute distress - Head Head exam: Present: normocephalic - Cardiovascular Cardiovascular exam: Present: RRR - GI/Abdominal GI/Abdominal exam: Present: soft Results - Labs CBC & BMP: 09/30/16 04:00 09/30/16 04:00 Lab Results: I have reviewed the past 24 hour labs
[2016-09-30] MEDS: FAT EMULSION 20% 250 ML IV SCH (13:58)
[2016-09-30] MEDS: ENOXAPARIN 30 MG/0.3 ML SYRINGE SUBCUT SCH (16:14)
[2016-09-30] MEDS ORDERED: [UNRECOGNIZED DRUG - OTHER] IV SCH (17:00)
[2016-09-30] MEDS ORDERED: AMINO ACIDS IV SCH (17:00)
[2016-09-30] MEDS ORDERED: TRACE ELEMENTS IV SCH (17:00)
[2016-09-30] MEDS ORDERED: MULTIVITAMIN IV SCH (17:00)
--- NOTE | 2016-09-30 19:52 | Cardiology Progress Note ---
Stanislaw Foley April, RN, am scribing for, and in the presence of, Kedar Young MD 19:51. Assessment and Plan (1) Elevated troponin Status: Acute Assessment and plan: Initial assessment and plan 09/26/16: No evidence overt overt ischemia Had deterioration over the weekend and had to be intubated Dr. Quiros did bronchoscopy today and found some lung injury due to gastric reflux Continue to support Watch for any signs or symptoms of ischemia Initial rise in troponins could have been due to sepsis. Prognosis remains guarded. Assessment and plan 09/27/16: Has had significant ventricular ectopy. Repleted low magnesium with IV magnesium supplementation Because of increased nonsustained VT, stopped dobutamine. This lessen the VT. Off pressure for now. Remains intubated Continue slow weaning Prognosis remains guarded. Assessment and plan 09/28/2016: off pressors at this time Blood pressure is okay Neurological seems slightly better. Is following some commands Infectious disease is being consulted. Continue to monitor rhythm and blood pressure Assessment and plan 09/29/2016: no change in neurological status. Trying to slowly wean Assessment and plan 09/30/2016: No evidence of ischemia Stability No change in neurological status Slow wean Current Visit: Yes (2) Dehydration Status: Acute Current Visit: Yes (3) Chronic renal insufficiency Status: Chronic Current Visit: Yes (4) Hypertension Status: Chronic Current Visit: Yes (5) Nonischemic cardiomyopathy Status: Chronic Current Visit: Yes (6) COPD (chronic obstructive pulmonary disease) Status: Chronic Current Visit: Yes (7) Diabetes mellitus Status: Chronic Current Visit: Yes (8) History of breast cancer Status: Chronic Current Visit: No (9) Status post placement of cardiac pacemaker Status: Chronic Current Visit: Yes (10) On mechanically assisted ventilation Status: Acute Current Visit: Yes Cardiology - PN: Subj Interval history: MEDICAL ILLUSTRATOR: DR. BRAVO PCP: DR. MINA ROBLES PRODUCTION DIRECTOR: DR. ABBE CHAWLA Ms. Oconnell is seen in the intensive care unit. She is intubated on mechanical ventilation with oxygen at 40%, O2 sat 100%. Vent weaning in progress. She is awake and will follow simple commands. environmental monitoring specialist currently shows sinus rhythm with bundle branch block, heart rates in the 90s. She is still off pressors, blood pressure 133/63. Creatinine continues to improve, is 1.60 today. Exam (Progress Note) - Constitutional Vitals: Period Temp Pulse Resp BP Sys/Quezada Pulse Ox Last 24 Hr 97.9 F-98.6 F 72-99 12-40 113-151/46-96 98-100 Exam: General appearance: other (Intubated on mechanical ventilation) - Head Head exam: Absent: abrasion, hematoma - Eye Eye exam: Absent: periorbital swelling, laceration to eyelids - ENT ENT exam: Present: other (NG tube, ET tube) - Respiratory Respiratory exam: Present: other (Intubated on mechanical ventilation, coarse breath sounds). Absent: accessory muscle use - Cardiovascular Cardiovascular exam: Present: regular rate and rhythm. Absent: rubs - GI/Abdominal GI/Abdominal exam: Present: hypoactive bowel sounds, soft. Absent: distended - Neurological Exam Neurological exam: Present: alert (Response to verbal stimuli, will follow simple commands) - Psychiatric Psychiatric exam: Present: other (Unable to assess due to status) - Skin Skin exam: Present: warm, dry Result/EKG - Labs CBC & BMP: 09/30/16 04:00 09/30/16 04:00 Lab Results: I have reviewed the past 24 hour labs Labs: Laboratory Results - last 24 hr 09/29/16 09/29/16 09/29/16 09:33 11:17 17:35 WBC RBC Hgb Hct MCV MCH MCHC RDW Plt Count MPV Neut % (Auto) Lymph % (Auto) [place] % (Auto) Eos % (Auto) Baso % (Auto) Neut # (Auto) Lymph # (Auto) [place] # (Auto) Eos # (Auto) Baso # (Auto) Total Counted Immature Gran % Nucleated RBC % Immature Gran # Segmented Neutrophils Band Neutrophils Lymphocytes Monocytes Eosinophils Basophils Nucleated RBCs # Platelet Estimate Hypochromasia Microcytosis Morphology Comment ABG pH ABG pCO2 ABG pO2 ABG HCO3 ABG Total CO2 ABG O2 Saturation ABG Base Excess FiO2 Sodium Potassium Chloride Carbon Dioxide Anion Gap BUN Creatinine GFR Calculation BUN/Creatinine Ratio Glucose POC Glucose 224 H 173 H Calculated Osmolality Calcium Vancomycin Trough 14.2 09/29/16 09/30/16 09/30/16 23:22 03:19 04:00 WBC RBC Hgb Hct MCV MCH MCHC RDW Plt Count MPV Neut % (Auto) Lymph % (Auto) [place] % (Auto) Eos % (Auto) Baso % (Auto) Neut # (Auto) Lymph # (Auto) [place] # (Auto) Eos # (Auto) Baso # (Auto) Total Counted Immature Gran % Nucleated RBC % Immature Gran # Segmented Neutrophils Band Neutrophils Lymphocytes Monocytes Eosinophils Basophils Nucleated RBCs # Platelet Estimate Hypochromasia Microcytosis Morphology Comment ABG pH 7.442 ABG pCO2 36.2 ABG pO2 143.0 H ABG HCO3 25.2 ABG Total CO2 22.2 L ABG O2 Saturation 99.1 ABG Base Excess 0.8 FiO2 40.00 Sodium 146 H Potassium 5.3 H Chloride 112 H Carbon Dioxide 26 Anion Gap 13.3 BUN 51 H D Creatinine 1.50 H GFR Calculation 37 BUN/Creatinine Ratio 34.00 H Glucose 126 H POC Glucose 172 H Calculated Osmolality 305.6 H Calcium 8.7 Vancomycin Trough 09/30/16 09/30/16 04:00 05:56 WBC 22.9 H RBC 3.37 L Hgb 9.8 L Hct 29.6 L MCV 87.8 MCH 29 MCHC 33.1 RDW 15.6 Plt Count 338 MPV 11.7 Neut % (Auto) 81.1 H Lymph % (Auto) 6.4 L [place] % (Auto) 8.3 Eos % (Auto) 2.3 Baso % (Auto) 0.3 Neut # (Auto) 18.5 H Lymph # (Auto) 1.5 [place] # (Auto) 1.9 H Eos # (Auto) 0.5 Baso # (Auto) 0.1 Total Counted 100 Immature Gran % 1.6 Nucleated RBC % 0.0 Immature Gran # 0.37 Segmented Neutrophils 85 Band Neutrophils 1 Lymphocytes 4 L Monocytes 8 Eosinophils 1 Basophils 1.0 H Nucleated RBCs # 0.00 Platelet Estimate Adequate Hypochromasia Slight Microcytosis Slight Morphology Comment ABG pH ABG pCO2 ABG pO2 ABG HCO3 ABG Total CO2 ABG O2 Saturation ABG Base Excess FiO2 Sodium Potassium Chloride Carbon Dioxide Anion Gap BUN Creatinine GFR Calculation BUN/Creatinine Ratio Glucose POC Glucose 131 H Calculated Osmolality Calcium Vancomycin Trough - EKG EKG results: interpreted by me EKG shows: sinus rhythm (bundle branch block) IHannah Dale, MD, personally performed the services described in this documentation, ascribed by Paris Dover RN in my presence, and it is both accurate and complete 951 .
[2016-09-30] MEDS: PHENYLEPHRINE DRIP 40 MG/250 ML PREMIX IV SCH (22:42)
[2016-10-01] MEDS: ALBUTEROL/IPRATROPIUM 3 ML NEB RESP TX SCH ×6 (00:02→19:39)
[2016-10-01] MEDS: INSULIN LISPRO 100 UNIT/ML SUBCUT SCH ×5 (00:02→23:41)
[2016-10-01 03:03] LABS: ABG Base Excess 1.6 MMOL/L (-2.5-2.5); ABG HCO3 25.4 MMOL/L (20-26); ABG Oxygen Saturation 98.8 % (95-100); ABG PCO2 36.9 MM HG (35-48); ABG PH 7.456 (7.35-7.45); ABG PO2 161.1 MM HG (80-95); ABG TCO2 26.6 MMOL/L (23-27); Allen Test Positive; Pt O2 Delivery Device Ventilator
[2016-10-01] MEDS: ALUMINUM/MAGNES/SIMETH MAX STR 30 ML UDCUP PER TUBE SCH ×4 (04:47→21:40)
[2016-10-01 05:07] LABS: Basophils # 0.1 10*3/uL (0.0-0.2); Basophils % 0.3 % (0.0-0.8); Eosinophils # 0.5 10*3/uL (0.0-0.87); Eosinophils % 2.6 % (0.00-10.9); Hematocrit 28.6 VOL% (35.7-47.0); Hemoglobin 8.9 GM/DL (12.0-16.0); Immature Granulocytes % 1.2 %; Immature Granulocytes Absolute 0.23 #; Lymphocytes # 1.5 10*3/uL (1.4-4.0); Lymphocytes % 7.3 % (21.3-54.2); Mean Corpuscular HGB Conc 31.1 GM/DL (32-36); Mean Corpuscular Hemoglobin 28 PG (27-34); Mean Corpuscular Volume 91.1 FL (87-102); Monocytes # 1.8 10*3/uL (0.11-0.8); Monocytes % 8.9 % (1.7-12.7); Neutrophils # 15.8 10*3/uL (1.4-7.4); Neutrophils % 79.7 % (38.7-73.9); Platelet Count 350 T/CUMM (130-400); Red Blood Count 3.14 MC/CUMM (3.8-5.5); Red Cell Distribution Width 15.9 % (9.3-17.3); White Blood Count 19.8 T/CUMM (4-12)
[2016-10-01 05:28] LABS: Calcium 8.6 MG/DL (8.5-10.1); Magnesium 2.8 MG/DL (1.8-2.4); Osmolality,Calculated 304.6 MOS/KG (273-304); Potassium 4.9 MMOL/L (3.5-5.1)
[2016-10-01] MEDS: LEVOTHYROXINE 25 MCG TABLET PO SCH (06:31)
--- NOTE | 2016-10-01 06:37 | Pulmonology Progress Note ---
Pulmonary - PN: Subj Interval history: This 81-year-old lady has pneumonia with E. coli and staph aureus. She has been doing fairly well with CPAP but tired out yesterday. X-ray this morning shows some left lower lobe pneumonia little change from before. ABGs look great. We will change her to IMV with pressure support and continue with weaning. Exam (Progress Note) - Constitutional Vitals: Period Temp Pulse Resp BP Sys/Quez[place] Pulse Ox Last 24 Hr 97.8 F-99.6 F 77-104 12-48 102-142/45-72 97-100 Exam: Patient is sedated but somewhat responsive her vital signs are normal. Pupils react to light. Orotracheal tubes in place. Neck is supple no bruits. Chest shows a few rhonchi at the left base otherwise clear. Heart normal rate and rhythm no murmurs. Abdomen soft nontender no masses. Extremities no clubbing cyanosis or edema. Results - Labs CBC & BMP: 10/01/16 04:00 10/01/16 04:00 Lab Results: I have reviewed the past 24 hour labs - Diagnostic Findings Procedure: Chest x-ray: image reviewed by me (ET tube good position. Left lower lobe infiltrate about the same. Pacemaker over right chest.) Assessment and Plan (1) Acute respiratory failure Status: Acute Assessment and plan: ABGs look good with PO2 161. Will reduce FiO2 and change to IMV with pressure support Current Visit: Yes (2) COPD (chronic obstructive pulmonary disease) Status: Chronic Assessment and plan: Continuing bronchodilators. Bump with Solu-Medrol Current Visit: Yes (3) Small bowel obstruction Status: Acute Assessment and plan: Being treated nonsurgically. Had increased residuals yesterday. Defer to surgery. Current Visit: No (4) Pneumonia Status: Acute Assessment and plan: E. coli and MRSA covered with Ancef and vancomycin. Chest x-ray stable. Current Visit: Yes
--- NOTE | 2016-10-01 07:27 | Hospitalist Progress Note ---
Hospitalist: Subjective Interval history: Pt intolerating tubefeeds. No fever. Pt having mucousy stool with slight stool in it. Low grade temp. Awake and following commands per nursing. Exam - Constitutional Vitals: Period Temp Pulse Resp BP Sys/Quezada Pulse Ox Last 24 Hr 97.8 F-99.6 F 76-104 12-48 102-142/45-72 97-100 Exam: GEN: Intubated and sedated, following simple commands HEENT: sclera clear NECK: supple, trachea midline, no LAD CV: RRR no M LUNGS: CTAB anteriorly, diminished at the bases ABD: soft, +BS, no HSM or masses appreciated. EXT: warm and well perfused. No clubbing, cyanosis or edema Results - Labs CBC & BMP: 10/01/16 04:00 10/01/16 04:00 - Impressions (1) Sepsis with septic shock due to aspiration pneumonia due to MRSA and E Coli and SBO- resolved Status: Acute Assessment and plan: - Continue IV antibiotics, bronchodilators - vent management per pulmonology - weaning - off Neonephrine. 2) Acute hypoxic and hypercarbic respiratory failure due to aspiration pneumonia in a patient with COPD- improving -FOB 09/26 showed evidence of aspiration. BAL cultures show MRSA and E Coli -09/25 Sputum culture growing MRSA and E COli -Cont Vanc day (09/25- ), Levaquin (09/20-09/27 ) and Clindamycin (09/26-09/27 ). Antibiotics changed to Vanc and Ceftaz per Pulm 09/27. Now on Vanc and Cefazolin by ID (09/28- ). -WBC decreasing. -Smear review reactive/infectious (pt has history of breast cancer) -CT chest not done. CT abd, pelvis 09/26 reviewed and showed resolution of SBO -Vent management per pulm--weaning -Cont bronchodilators 3) Acute SBO- resolved - Off TPN - Dr Allred (surgery) following - Cont Tubefeeds as tolerated. 4)Feeding intolerance suspect Ileus - check KUB. If no obstruction noted, start reglan 5) DEMETRIUS on CKD stage3 - reportedly creatinine baseline is 1.6. Today 1.4- Cont to improve. - Off IVF. Serial labs. 5) COPD- not in exacerbation - Cont Bronchodilators. 6) Chronic hypothyroidism- - Synthroid 25mcg PT daily. (takes armor thyroid at home.) 7) Chronic systolic CHF- EF 35-40% per ECHO 08/2016. s/p acute exacerbation resolved with diuretics. Watch for overload. 8) Diabetes mellitus 2- fairly well controlled Status: Chronic Current Visit: Yes - Insulin sliding scale and accuchecks q6h 9) Severe protein calorie malnutrition - tubefeeds as tolerated. Has been restarted on TPN. Nutrition consulted. DVT prophylaxis- Lovenox renally dosed. Weaning per pulm. 35 minutes spent with this patient. D/W nurse. Update [facility] (Niece) by phone today.
[2016-10-01 08:16] LABS: ABG Base Excess 0.3 MMOL/L (-2.5-2.5); ABG HCO3 24.7 MMOL/L (20-26); ABG Oxygen Saturation 98.3 % (95-100); ABG PCO2 47.1 MM HG (35-48); ABG PH 7.352 (7.35-7.45); ABG TCO2 24.4 MMOL/L (23-27); Allen Test Positive; Pt O2 Delivery Device Ventilator
--- NOTE | 2016-10-01 08:36 | Cardiology Progress Note ---
Assessment and Plan - Time spent with patient Time spent with patient: Greater than 30 minutes (1) Acute respiratory failure Status: Acute Assessment and plan: SEE PLAN OF CARE LISTED BELOW Current Visit: Yes (2) Elevated troponin Status: Acute Assessment and plan: SEE PLAN OF CARE LISTED BELOW Current Visit: Yes (3) Pneumonia Status: Acute Assessment and plan: SEE PLAN OF CARE LISTED BELOW Current Visit: Yes (4) Septic shock Status: Acute Assessment and plan: SEE PLAN OF CARE LISTED BELOW Current Visit: Yes (5) COPD (chronic obstructive pulmonary disease) Status: Chronic Current Visit: Yes (6) Chronic renal insufficiency Status: Chronic Assessment and plan: SEE PLAN OF CARE LISTED BELOW Current Visit: Yes Qualifiers: Chronic kidney disease stage: stage 2 (mild) Qualified Code(s): N18.2 - Chronic kidney disease, stage 2 (mild) (7) Diabetes mellitus Status: Chronic Assessment and plan: SEE PLAN OF CARE LISTED BELOW Current Visit: Yes (8) Hypertension Status: Chronic Assessment and plan: SEE PLAN OF CARE LISTED BELOW Current Visit: Yes (9) Nonischemic cardiomyopathy Status: Chronic Assessment and plan: SEE PLAN OF CARE LISTED BELOW Current Visit: Yes (10) Status post placement of cardiac pacemaker Status: Chronic Assessment and plan: SEE PLAN OF CARE LISTED BELOW Current Visit: Yes (11) History of breast cancer Status: Chronic Assessment and plan: SEE PLAN OF CARE LISTED BELOW Current Visit: No (12) SBO (small bowel obstruction) Status: Resolved Assessment and plan: SEE PLAN OF CARE LISTED BELOW Current Visit: No Cardiology - PN: Subj Interval history: ORE DRYER: DR. BRAVO PCP: DR. MINA ROBLES TOOL MAKER: DR. ABBE CHAWLA SUMMARY: Ms. Oconnell, 81BF, was admitted September 20, 2016 with shortness of breath, nausea and vomiting. She was found to have suspected CAP, small bowel obstruction, septic shock and elevated cardiac biomarkers. Cardiology was consulted due to elevated troponin of 0.063. These numbers never increased and was felt to be related to sepsis. Creatinine has been elevated throughout hospital stay. Small bowel obstruction has improved during her stay. September 24, 2016 she was intubated due to respiratory failure. Underwent bronchoscopy September 26, 2016 was found to have lung injury related to gastric reflux. Echocardiogram September 20, 2016 reveals the following: EF 35-40% without significant valvular abnormality, PAP 46 mmHg. (I have found no prior echocardiogram to compare). OCTOBER 01, 2016: Patient remains intubated. Neurologically, she is following some commands. She is off pressors and vital signs appear to be stable. Kidney function continues to improve with a creatinine of 1.4 today. Blood pressure will not allow for introduction of beta-blockade at this point. Prognosis is guarded. ASSESSMENT/PLAN: 1. PNEUMONIA - continue current plan of care 2. ACUTE RESPIRATORY FAILURE - remains on the ventilator. Hopefully, will be weaned in the next few days. 3. SBO - continue current plan of care 4. CARDIOMYOPATHY - recorded as NICM 5. RENAL INSUFFICIENCY -improving. Stage II. This is thought to be acute on chronic 6. ELEVATED TROPONIN - this is not thought to be acute coronary syndrome. Stable 7. DIABETES - continue with sliding scale 8. S/P PPM - functioning appropriately. 9. HISTORY OF BREAST CANCER -continue current plan of care 10. ANEMIA - following labs daily. Exam (Progress Note) - Constitutional Vitals: Period Temp Pulse Resp BP Sys/Quezada Pulse Ox Last 24 Hr 98.5 F-99.6 F 76-104 12-48 102-142/45-72 97-100 Exam: General: [Intubated, sedated. Beginning to move head toward verbal commands. Appears comfortable. ] HEENT: [Normocephalic. atraumatic. Mucous membranes moist. No jaundice noted. Conjunctiva moist and clear, sclerae anicteric] Neck: No obvious JVD/HJR, no thyromegaly or lymphadenopathy noted. No carotid bruit appreciated Cardiac: [Regular rate and rhythm.] [No obvious murmur rub or gallop.] Lungs: [Rhonchi throughout. Symmetrical chest wall movements noted. Intubated. Abdomen: Soft, bowel sounds normoactive. No abdominal bruit or thrill noted. No masses noted. Musculoskeletal: No fluid collection. Decreased range of motion is noted. Extremities: No clubbing, cyanosis noted. [1+ bilateral lower extremity edema noted. Upper extremity pulses 2+. Lower extremity pulses 2+. Capillary refill less than 3 seconds. Skin: No unusual lesions or rashes. No skin breakdown appreciated. Neuro: No obvious tremor noted. Wakes and begins to move head toward verbal commands. Result/EKG - Labs CBC & BMP: 10/01/16 04:00 10/01/16 04:00 Lab Results: I have reviewed the past 24 hour labs Labs: Laboratory Results - last 24 hr 09/30/16 09/30/16 09/30/16 11:40 18:11 23:22 WBC RBC Hgb Hct MCV MCH MCHC RDW Plt Count MPV Neut % (Auto) Lymph % (Auto) [place] % (Auto) Eos % (Auto) Baso % (Auto) Neut # (Auto) Lymph # (Auto) [place] # (Auto) Eos # (Auto) Baso # (Auto) Immature Gran % Nucleated RBC % Immature Gran # Nucleated RBCs # ABG pH ABG pCO2 ABG pO2 ABG HCO3 ABG Total CO2 ABG O2 Saturation ABG Base Excess FiO2 Sodium Potassium Chloride Carbon Dioxide Anion Gap BUN Creatinine GFR Calculation BUN/Creatinine Ratio Glucose POC Glucose 211 H 151 H 253 H Calculated Osmolality Calcium Magnesium 10/01/16 10/01/16 10/01/16 02:53 04:00 04:00 WBC 19.8 H RBC 3.14 L Hgb 8.9 L Hct 28.6 L MCV 91.1 MCH 28 MCHC 31.1 L RDW 15.9 Plt Count 350 MPV 12.0 Neut % (Auto) 79.7 H Lymph % (Auto) 7.3 L [place] % (Auto) 8.9 Eos % (Auto) 2.6 Baso % (Auto) 0.3 Neut # (Auto) 15.8 H Lymph # (Auto) 1.5 [place] # (Auto) 1.8 H Eos # (Auto) 0.5 Baso # (Auto) 0.1 Immature Gran % 1.2 Nucleated RBC % 0.0 Immature Gran # 0.23 Nucleated RBCs # 0.00 ABG pH 7.456 H ABG pCO2 36.9 ABG pO2 161.1 H ABG HCO3 25.4 ABG Total CO2 26.6 ABG O2 Saturation 98.8 ABG Base Excess 1.6 FiO2 40.00 Sodium 146 H Potassium 4.9 Chloride 112 H Carbon Dioxide 26 Anion Gap 12.9 BUN 39 H D Creatinine 1.40 H GFR Calculation 41 BUN/Creatinine Ratio 27.00 H Glucose 201 H POC Glucose Calculated Osmolality 304.6 H Calcium 8.6 Magnesium 2.8 H 10/01/16 10/01/16 05:23 07:48 WBC RBC Hgb Hct MCV MCH MCHC RDW Plt Count MPV Neut % (Auto) Lymph % (Auto) [place] % (Auto) Eos % (Auto) Baso % (Auto) Neut # (Auto) Lymph # (Auto) [place] # (Auto) Eos # (Auto) Baso # (Auto) Immature Gran % Nucleated RBC % Immature Gran # Nucleated RBCs # ABG pH 7.352 ABG pCO2 47.1 ABG pO2 118.0 H ABG HCO3 24.7 ABG Total CO2 24.4 ABG O2 Saturation 98.3 ABG Base Excess 0.3 FiO2 30.00 Sodium Potassium Chloride Carbon Dioxide Anion Gap BUN Creatinine GFR Calculation BUN/Creatinine Ratio Glucose POC Glucose 227 H Calculated Osmolality Calcium Magnesium - Diagnostic Findings Procedure: Chest x-ray: report reviewed by me - EKG EKG results: interpreted by me EKG shows: sinus rhythm
--- NOTE | 2016-10-01 08:40 | XRay Report ---
History is feeding intolerance Abdomen, one view Comparison 09/26/2016 Air scattered throughout bowel similar on the prior study. Extensive pelvic calcifications unchanged. NG tube tip overlies the body of the stomach No organomegaly is seen Impression: Nonspecific bowel gas pattern PROCEDURE INTERPRETED AT [facility] DEPARTMENT OF RADIOLOGY Final Report Signed by: Dr. Brit Martin
--- NOTE | 2016-10-01 09:09 | XRay Report ---
History is a ventilator management Comparison 09/30/2016 The heart is enlarged with pacemaker present. ET tube tip remains at T5. NG tube traverse the chest. Right central line remains There has been mild interval improved aeration in the lung bases. Minimal reticular opacities remain bilaterally but are mildly improved in the interval. No pneumothorax seen. Impression: Mild improvement described above PROCEDURE INTERPRETED AT [facility] DEPARTMENT OF RADIOLOGY Final Report Signed by: Dr. Brit Martin
[2016-10-01] MEDS: methylPREDNISolone SOD SUC 40 MG/1 ML VIAL IV SCH ×2 (09:45→18:15)
[2016-10-01] MEDS: INSULIN GLARGINE 100 UNIT/ML SUBCUT SCH (09:46)
[2016-10-01] MEDS: MUPIROCIN 2% OINT 22 GM TUBE TOP SCH ×2 (09:47→21:40)
[2016-10-01] MEDS: VANCOMYCIN INJ 1,000 MG in SODIUM CHLORIDE 0.9% 250 ML IV SCH (09:48)
[2016-10-01] MEDS: DESITIN 4OZ/NYSTATIN 15 GRAM MIXTURE PASTE TOP SCH ×2 (10:15→21:40)
--- NOTE | 2016-10-01 11:22 | General Surgery Progress Note ---
Assessment and Plan (1) Small bowel obstruction Status: Acute Assessment and plan: This appears to have resolved. The patient is being treated for pneumonia currently. Her white blood cell count is elevated but she is on pretty high- dose of steroids as well. We are going to attempt to restarting tube feeds at 10 cc an hour and monitor her residuals. She had a repeat CT scan done earlier this week that showed resolution of her bowel obstruction so hopefully the residuals were just related to her infection but she is currently dealing with and we should be able to advance her feeds slowly. Current Visit: No Subjective Patient reports: Present: afebrile Narrative: No events overnight. The patient had a nonspecific gas pattern today. She had some difficulty tolerating tube feeds yesterday so her NG tube was placed back on suction and drained about 400 cc of clear looking fluid since it was done. She wakes up and follows commands. She is being treated for presumed aspiration pneumonia. Exam - Constitutional Vitals: Period Temp Pulse Resp BP Sys/Quezada Pulse Ox Last 24 Hr 98.5 F-99.6 F 76-94 12-48 102-142/44-72 97-100 General appearance: no acute distress, over weight - Head Head exam: Present: normal inspection, normocephalic - Eye Eye exam: Present: EOMI Pupils: Present: [place] - ENT ENT exam: Present: normal exam Mouth exam: Present: normal external inspection - Neck Neck exam: Present: normal inspection, trachea midline - Respiratory Respiratory exam: Present: clear to auscultation bilaterally. Absent: accessory muscle use, chest wall tenderness - Cardiovascular Cardiovascular exam: Present: RRR. Absent: systolic murmur, tachycardia - GI/Abdominal GI/Abdominal exam: Present: hypoactive bowel sounds, soft. Absent: distended, hernia, tenderness, rebound - Extremities Exam Extremities exam: Present: normal inspection, normal capillary refill - Back Exam Back exam: Present: normal inspection - Neurological Exam Neurological exam: Present: alert - Skin Skin exam: Present: normal color, warm Results - Labs CBC & BMP: 10/01/16 04:00 10/01/16 04:00 - Diagnostic Findings Procedure: KUB x-ray: image reviewed by me, report reviewed by me
[2016-10-01] MEDS: METOCLOPRAMIDE 10 MG/2 ML VIAL IM SCH ×2 (12:27→18:15)
[2016-10-01] MEDS: FAT EMULSION 20% 250 ML IV SCH (14:34)
[2016-10-01] MEDS: ENOXAPARIN 30 MG/0.3 ML SYRINGE SUBCUT SCH (15:54)
[2016-10-01] MEDS ORDERED: ELECTROLYTE CONCENTRATE 20 ML, TRACE ELEMENTS (5) 1 ML, MULTIVITAMIN INJ 10 ML, INSULIN... IV SCH (17:00)
[2016-10-01] MEDS: MULTIVITAMIN IV SCH (17:18)
[2016-10-01] MEDS: [UNRECOGNIZED DRUG - OTHER] IV SCH (17:18)
[2016-10-01] MEDS: TRACE ELEMENTS IV SCH (17:18)
[2016-10-01] MEDS: ELECTROLYTE IV SCH (17:18)
[2016-10-02] MEDS: ALBUTEROL/IPRATROPIUM 3 ML NEB RESP TX SCH ×7 (00:01→23:58)
[2016-10-02] MEDS: METOCLOPRAMIDE 10 MG/2 ML VIAL IM SCH ×4 (00:36→17:30)
[2016-10-02] MEDS: PHENYLEPHRINE DRIP 40 MG/250 ML PREMIX IV SCH ×2 (00:51→22:09)
[2016-10-02 04:06] LABS: ABG Base Excess -0.4 MMOL/L (-2.5-2.5); ABG HCO3 24.1 MMOL/L (20-26); ABG Oxygen Saturation 98.6 % (95-100); ABG PH 7.385 (7.35-7.45); ABG TCO2 21.6 MMOL/L (23-27); Allen Test Positive; Pt O2 Delivery Device Ventilator
[2016-10-02] MEDS: ALUMINUM/MAGNES/SIMETH MAX STR 30 ML UDCUP PER TUBE SCH ×4 (05:30→21:50)
[2016-10-02 05:34] LABS: Basophils % 0.2 % (0.0-0.8); Hematocrit 26.5 VOL% (35.7-47.0); Hemoglobin 8.5 GM/DL (12.0-16.0); Immature Granulocytes % 1.2 %; Immature Granulocytes Absolute 0.29 #; Lymphocytes # 0.8 10*3/uL (1.4-4.0); Lymphocytes % 3.2 % (21.3-54.2); Mean Corpuscular HGB Conc 32.1 GM/DL (32-36); Mean Corpuscular Hemoglobin 29 PG (27-34); Mean Corpuscular Volume 89.8 FL (87-102); Mean Platelet Volume 12.5 FL (9.6-12.0); Monocytes # 1.3 10*3/uL (0.11-0.8); Monocytes % 5.6 % (1.7-12.7); Neutrophils % 89.8 % (38.7-73.9); Platelet Count 356 T/CUMM (130-400); Red Blood Count 2.95 MC/CUMM (3.8-5.5); Red Cell Distribution Width 15.4 % (9.3-17.3); White Blood Count 23.4 T/CUMM (4-12)
[2016-10-02 05:41] LABS: Calcium 8.7 MG/DL (8.5-10.1); Magnesium 2.8 MG/DL (1.8-2.4); Osmolality,Calculated 307.1 MOS/KG (273-304); Potassium 5.3 MMOL/L (3.5-5.1)
--- NOTE | 2016-10-02 06:15 | Pulmonology Progress Note ---
Pulmonary - PN: Subj Interval history: This 81-year-old lady has pneumonia with E. coli and staph aureus. She has been doing fairly well with CPAP but tired out yesterday. X-ray this morning shows some left lower lobe pneumonia little change from before. ABGs look great. We will change her to IMV with pressure support and continue with weaning. 10/02/2016 patient with respiratory failure and pneumonia. ABGs improved. She did prolonged weaning trial yesterday. Will check mechanics and ABGs on CPAP today and see if we can get her extubated. Exam (Progress Note) - Constitutional Vitals: Period Temp Pulse Resp BP Sys/Quezada Pulse Ox Last 24 Hr 97.5 F-99.1 F 66-98 12-35 85-134/30-92 97-100 Exam: Patient is responsive and her vital signs are normal. Pupils react to light. Orotracheal tubes in place. Neck is supple no bruits. Chest shows a few rhonchi at the left base otherwise clear. Heart normal rate and rhythm no murmurs. Abdomen soft nontender no masses. Extremities no clubbing cyanosis or edema. Results - Labs CBC & BMP: 10/02/16 04:40 10/02/16 04:40 Lab Results: I have reviewed the past 24 hour labs - Diagnostic Findings Procedure: Chest x-ray: image reviewed by me (ET tube good position. Left basilar infiltrate looks improved.) Assessment and Plan (1) Acute respiratory failure Status: Acute Assessment and plan: ABGs look good with PO2 161. Will reduce FiO2 and change to IMV with pressure support 10/02/2016 ABGs continued to look good. Hopefully we can get her extubated this morning. Current Visit: Yes (2) COPD (chronic obstructive pulmonary disease) Status: Chronic Assessment and plan: Continuing bronchodilators. Bump with Solu-Medrol 10/02/2016 continuing with bronchodilators. She is getting Solu-Medrol as well. Current Visit: Yes (3) Small bowel obstruction Status: Acute Assessment and plan: Being treated nonsurgically. Had increased residuals yesterday. Defer to surgery. 10/02/2016 no signs of obstruction at present. Current Visit: No (4) Pneumonia Status: Acute Assessment and plan: E. coli and MRSA covered with Ancef and vancomycin. Chest x-ray stable. 10/02/2016 continuing antibiotics outlined above, x-ray improved Current Visit: Yes
[2016-10-02] MEDS: methylPREDNISolone SOD SUC 40 MG/1 ML VIAL IV SCH ×2 (06:18→18:07)
[2016-10-02] MEDS: INSULIN LISPRO 100 UNIT/ML SUBCUT SCH ×3 (06:18→17:30)
[2016-10-02] MEDS: LEVOTHYROXINE 25 MCG TABLET PO SCH (06:18)
[2016-10-02] MEDS: TRACE ELEMENTS IV SCH ×2 (07:17→21:51)
[2016-10-02] MEDS: MULTIVITAMIN IV SCH ×2 (07:17→21:51)
[2016-10-02] MEDS: [UNRECOGNIZED DRUG - OTHER] IV SCH ×2 (07:17→21:51)
[2016-10-02] MEDS: ELECTROLYTE IV SCH ×2 (07:17→21:51)
--- NOTE | 2016-10-02 07:41 | Hospitalist Progress Note ---
Hospitalist: Subjective Interval history: On weaning trial. Possible plans for extubation today. Tolerating tubefeeds at 10cc/hr. No fever. +BM Exam - Constitutional Vitals: Period Temp Pulse Resp BP Sys/Quezada Pulse Ox Last 24 Hr 97.5 F-99.1 F 66-98 12-35 85-134/30-92 97-100 Exam: GEN: Intubated, awake and alert, following simple commands HEENT: sclera clear NECK: supple, trachea midline, no LAD CV: RRR no M LUNGS: CTAB anteriorly, diminished at the bases ABD: soft, +BS, NTTP, protuberant abdomen. EXT: warm and well perfused. No clubbing, cyanosis or edema Results - Labs CBC & BMP: 10/02/16 04:40 10/02/16 04:40 - Impressions (1) Sepsis with septic shock due to aspiration pneumonia due to MRSA and E Coli and SBO- resolved Status: Acute Assessment and plan: - Continue IV antibiotics, bronchodilators. Pt WBC increased but was started on Steroids IV 10/01. - vent management per pulmonology - weaning - off Neonephrine. 2) Acute hypoxic and hypercarbic respiratory failure due to aspiration pneumonia in a patient with COPD- improving -FOB 09/26 showed evidence of aspiration. BAL cultures show MRSA and E Coli -09/25 Sputum culture growing MRSA and E COli -Cont Vanc day (09/25- ), Levaquin (09/20-09/27 ) and Clindamycin (09/26-09/27 ). Antibiotics changed to Vanc and Ceftaz per Pulm 09/27. Now on Vanc and Cefazolin by ID (09/28- ). -WBC increased but was started on steroids 10/01. -Smear review reactive/infectious (pt has history of breast cancer) -CT chest not done. CT abd, pelvis 09/26 reviewed and showed resolution of SBO -Vent management per pulm--weaning -Cont bronchodilators -I have instructed nurses that if there are plans for extubation, tubefeeds should be on hold. Nurse to discuss with pulm. 3) Acute SBO- resolved - Off TPN - Dr Allred (surgery) following - Cont Tubefeeds as tolerated. 4)Feeding intolerance suspect Ileus- improved - KUB did not show obstruction. Cont reglan. Increase tubefeeds to goal per protocol 5) DEMETRIUS on CKD stage3 - reportedly creatinine baseline is 1.6. Today 1.4- improved. Probably at baseline. BUN up but this is probably from catabolic effect of steroids. - Off IVF. Serial labs. 5) COPD- not in exacerbation - Cont Bronchodilators. 6) Chronic hypothyroidism- - Synthroid 25mcg PT daily. (takes armor thyroid at home.) 7) Chronic systolic CHF- EF 35-40% per ECHO 08/2016. s/p acute exacerbation resolved with diuretics. Watch for overload. 8) Diabetes mellitus 2- fairly well controlled Status: Chronic Current Visit: Yes - Insulin sliding scale and accuchecks q6h 9) Severe protein calorie malnutrition - tubefeeds as tolerated. Has been restarted on TPN. Nutrition consulted. DVT prophylaxis- Lovenox renally dosed. Weaning per pulm. 33 minutes spent with this patient. D/W nurse. I will be away several days. One of my associates will follow in my absence.
[2016-10-02 07:45] LABS: Hypochromasia 2+; Lymphocytes 3 % (20-55); Microcytosis Slight; Platelet Estimate Adequate; Segmented Neutrophils 91 % (50-85); Total Cells Counted 100
[2016-10-02] MEDS: MUPIROCIN 2% OINT 22 GM TUBE TOP SCH ×2 (08:05→22:09)
[2016-10-02] MEDS: INSULIN GLARGINE 100 UNIT/ML SUBCUT SCH (08:09)
[2016-10-02] MEDS: DESITIN 4OZ/NYSTATIN 15 GRAM MIXTURE PASTE TOP SCH ×2 (08:09→22:07)
[2016-10-02 09:12] LABS: ABG Base Excess -0.2 MMOL/L (-2.5-2.5); ABG HCO3 24.3 MMOL/L (20-26); ABG Oxygen Saturation 98.6 % (95-100); ABG PCO2 38.8 MM HG (35-48); ABG PH 7.405 (7.35-7.45); ABG TCO2 22.1 MMOL/L (23-27)
--- NOTE | 2016-10-02 09:14 | XRay Report ---
Single view the chest. Indication: Ventilated patient. Comparison: October 01, 2016. The heart is mildly enlarged. An endotracheal tube and nasogastric tube are in satisfactory position. A right-sided subclavian line is in satisfactory position. Cardiac hardware is unchanged in position. The pulmonary vasculature is mildly prominent. Mild hazy opacity at the left lung base is stable. Degenerative changes of the spinal column and shoulders. Impression: No significant interval change. PROCEDURE INTERPRETED AT [facility] DEPARTMENT OF RADIOLOGY Final Report Signed by: Dr. Magda Martin
[2016-10-02] MEDS: VANCOMYCIN INJ 1,000 MG in SODIUM CHLORIDE 0.9% 250 ML IV SCH (10:11)
--- NOTE | 2016-10-02 11:08 | General Surgery Progress Note ---
Assessment and Plan (1) Small bowel obstruction Status: Acute Assessment and plan: The patient is tolerating tube feeds at 10 cc/h. She has great bowel sounds. Her obstruction is obviously resolved but I think she got a little bit of an ileus from her pneumonia which is also now resolving. If she gets extubated her NG tube can be removed and her diet can be advanced. If she fails her weaning trial and requires continued ventilatory care that we will continue her tube feeds and start to advance them. This was discussed with the patient's nurse intubation for another day Current Visit: No Subjective Patient reports: Present: no new complaints, afebrile Narrative: The patient is tolerating tube feeding well today. She is on a CPAP trial when I saw her this morning and she may get extubated today for gases and mechanics look good. She is awake and alert and follows commands. She has great bowel sounds. Exam - Constitutional Vitals: Period Temp Pulse Resp BP Sys/Quezada Pulse Ox Last 24 Hr 97.5 F-99.1 F 66-95 14-35 85-134/30-92 97-100 General appearance: no acute distress, over weight - Head Head exam: Present: normal inspection, normocephalic - Eye Eye exam: Present: EOMI Pupils: Present: [place] - ENT ENT exam: Present: normal exam Mouth exam: Present: normal external inspection - Neck Neck exam: Present: normal inspection, trachea midline - Respiratory Respiratory exam: Present: clear to auscultation bilaterally. Absent: accessory muscle use, chest wall tenderness - Cardiovascular Cardiovascular exam: Present: RRR. Absent: systolic murmur, tachycardia - GI/Abdominal GI/Abdominal exam: Present: normal bowel sounds, soft. Absent: distended, tenderness, rebound - Extremities Exam Extremities exam: Present: normal inspection, normal capillary refill - Back Exam Back exam: Present: normal inspection - Neurological Exam Neurological exam: Present: alert - Skin Skin exam: Present: normal color, warm Results - Labs CBC & BMP: 10/02/16 04:40 10/02/16 04:40
[2016-10-02 11:39] LABS: ABG Base Excess 0.4 MMOL/L (-2.5-2.5); ABG HCO3 24.8 MMOL/L (20-26); ABG Oxygen Saturation 97.1 % (95-100); ABG PCO2 39.3 MM HG (35-48); ABG PH 7.411 (7.35-7.45); ABG PO2 89.8 MM HG (80-95); ABG TCO2 22.9 MMOL/L (23-27)
[2016-10-02] MEDS: FAT EMULSION 20% 250 ML IV SCH (13:57)
--- NOTE | 2016-10-02 16:08 | Cardiology Progress Note ---
Assessment and Plan (1) Elevated troponin Status: Acute Assessment and plan: Initial assessment and plan 09/26/16: No evidence overt overt ischemia Had deterioration over the weekend and had to be intubated Dr. Quiros did bronchoscopy today and found some lung injury due to gastric reflux Continue to support Watch for any signs or symptoms of ischemia Initial rise in troponins could have been due to sepsis. Prognosis remains guarded. Assessment and plan 09/27/16: Has had significant ventricular ectopy. Repleted low magnesium with IV magnesium supplementation Because of increased nonsustained VT, stopped dobutamine. This lessen the VT. Off pressure for now. Remains intubated Continue slow weaning Prognosis remains guarded. Assessment and plan 09/28/2016: off pressors at this time Blood pressure is okay Neurological seems slightly better. Is following some commands Infectious disease is being consulted. Continue to monitor rhythm and blood pressure Assessment and plan 09/29/2016: no change in neurological status. Trying to slowly wean Assessment and plan 09/30/2016: No evidence of ischemia Stability No change in neurological status Slow wean 10/02/16: Oxygenation is better Rhythm is stable Renal function, creatinine about 1.4 CPAP trials to try to extubate Current Visit: Yes (2) Dehydration Status: Acute Current Visit: Yes (3) Chronic renal insufficiency Status: Chronic Current Visit: Yes Qualifiers: Chronic kidney disease stage: stage 2 (mild) Qualified Code(s): N18.2 - Chronic kidney disease, stage 2 (mild) (4) Hypertension Status: Chronic Current Visit: Yes (5) Nonischemic cardiomyopathy Status: Chronic Current Visit: Yes (6) COPD (chronic obstructive pulmonary disease) Status: Chronic Current Visit: Yes (7) Diabetes mellitus Status: Chronic Current Visit: Yes (8) History of breast cancer Status: Chronic Current Visit: No (9) Status post placement of cardiac pacemaker Status: Chronic Current Visit: Yes (10) On mechanically assisted ventilation Status: Acute Current Visit: Yes Cardiology - PN: Subj Interval history: No chest pain ; less shortness of breath. Exam (Progress Note) - Constitutional Vitals: Period Temp Pulse Resp BP Sys/Quezada Pulse Ox Last 24 Hr 97.5 F-99.1 F 66-101 14-35 85-145/30-82 95-100 Exam: General appearance: other (Intubated on mechanical ventilation) - Head Head exam: Absent: abrasion, hematoma - Eye Eye exam: Absent: periorbital swelling, laceration to eyelids - ENT ENT exam: Present: other (NG tube, ET tube) - Respiratory Respiratory exam: Present: other (Intubated on mechanical ventilation, coarse breath sounds). Absent: accessory muscle use - Cardiovascular Cardiovascular exam: Present: regular rate and rhythm. Absent: rubs - GI/Abdominal GI/Abdominal exam: Present: hypoactive bowel sounds, soft. Absent: distended - Neurological Exam Neurological exam: Present: alert (Response to verbal stimuli, will follow simple commands) - Psychiatric Psychiatric exam: Present: other (Unable to assess due to status) - Skin Skin exam: Present: warm, dry Result/EKG - Labs CBC & BMP: 10/02/16 04:40 10/02/16 04:40 Lab Results: I have reviewed the past 24 hour labs Labs: Laboratory Results - last 24 hr 10/01/16 10/01/16 10/02/16 18:03 23:35 03:35 WBC RBC Hgb Hct MCV MCH MCHC RDW Plt Count MPV Neut % (Auto) Lymph % (Auto) [place] % (Auto) Eos % (Auto) Baso % (Auto) Neut # (Auto) Lymph # (Auto) [place] # (Auto) Eos # (Auto) Baso # (Auto) Total Counted Immature Gran % Nucleated RBC % Immature Gran # Segmented Neutrophils Lymphocytes Monocytes Nucleated RBCs # Platelet Estimate Hypochromasia Microcytosis ABG pH 7.385 ABG pCO2 41.0 ABG pO2 121.0 H ABG HCO3 24.1 ABG Total CO2 21.6 L ABG O2 Saturation 98.6 ABG Base Excess -0.4 FiO2 30.00 Sodium Potassium Chloride Carbon Dioxide Anion Gap BUN Creatinine GFR Calculation BUN/Creatinine Ratio Glucose POC Glucose 342 H 377 H Calculated Osmolality Calcium Magnesium Vancomycin Trough 10/02/16 10/02/16 10/02/16 04:40 04:40 05:54 WBC 23.4 H RBC 2.95 L Hgb 8.5 L Hct 26.5 L MCV 89.8 MCH 29 MCHC 32.1 RDW 15.4 Plt Count 356 MPV 12.5 H Neut % (Auto) 89.8 H Lymph % (Auto) 3.2 L [place] % (Auto) 5.6 Eos % (Auto) 0.0 Baso % (Auto) 0.2 Neut # (Auto) 21.0 H Lymph # (Auto) 0.8 L [place] # (Auto) 1.3 H Eos # (Auto) 0.0 Baso # (Auto) 0.0 Total Counted 100 Immature Gran % 1.2 Nucleated RBC % 0.0 Immature Gran # 0.29 Segmented Neutrophils 91 H Lymphocytes 3 L Monocytes 6 Nucleated RBCs # 0.00 Platelet Estimate Adequate Hypochromasia 2+ Microcytosis Slight ABG pH ABG pCO2 ABG pO2 ABG HCO3 ABG Total CO2 ABG O2 Saturation ABG Base Excess FiO2 Sodium 142 Potassium 5.3 H Chloride 109 H Carbon Dioxide 27 Anion Gap 11.3 BUN 50 H Creatinine 1.40 H GFR Calculation 46 BUN/Creatinine Ratio 35.00 H Glucose 312 H POC Glucose 325 H Calculated Osmolality 307.1 H Calcium 8.7 Magnesium 2.8 H Vancomycin Trough 10/02/16 10/02/16 10/02/16 08:35 09:30 11:35 WBC RBC Hgb Hct MCV MCH MCHC RDW Plt Count MPV Neut % (Auto) Lymph % (Auto) [place] % (Auto) Eos % (Auto) Baso % (Auto) Neut # (Auto) Lymph # (Auto) [place] # (Auto) Eos # (Auto) Baso # (Auto) Total Counted Immature Gran % Nucleated RBC % Immature Gran # Segmented Neutrophils Lymphocytes Monocytes Nucleated RBCs # Platelet Estimate Hypochromasia Microcytosis ABG pH 7.405 7.411 ABG pCO2 38.8 39.3 ABG pO2 115.0 H 89.8 ABG HCO3 24.3 24.8 ABG Total CO2 22.1 L 22.9 L ABG O2 Saturation 98.6 97.1 ABG Base Excess -0.2 0.4 FiO2 Sodium Potassium Chloride Carbon Dioxide Anion Gap BUN Creatinine GFR Calculation BUN/Creatinine Ratio Glucose POC Glucose Calculated Osmolality Calcium Magnesium Vancomycin Trough 18.1 - EKG EKG results: interpreted by me
[2016-10-02] MEDS: ENOXAPARIN 30 MG/0.3 ML SYRINGE SUBCUT SCH (16:25)
[2016-10-03] MEDS: INSULIN LISPRO 100 UNIT/ML SUBCUT SCH ×4 (00:30→18:26)
[2016-10-03] MEDS: METOCLOPRAMIDE 10 MG/2 ML VIAL IM SCH ×4 (00:31→18:27)
[2016-10-03] MEDS: ALBUTEROL/IPRATROPIUM 3 ML NEB RESP TX SCH ×6 (03:41→23:43)
[2016-10-03 03:49] LABS: ABG Base Excess 0.6 MMOL/L (-2.5-2.5); ABG HCO3 24.9 MMOL/L (20-26); ABG PH 7.408 (7.35-7.45); ABG PO2 88.7 MM HG (80-95); ABG TCO2 22.6 MMOL/L (23-27); Allen Test Positive
[2016-10-03] MEDS: ALUMINUM/MAGNES/SIMETH MAX STR 30 ML UDCUP PER TUBE SCH ×4 (04:30→21:46)
[2016-10-03 05:06] LABS: Basophils # 0.1 10*3/uL (0.0-0.2); Basophils % 0.2 % (0.0-0.8); Hematocrit 25.8 VOL% (35.7-47.0); Hemoglobin 8.3 GM/DL (12.0-16.0); Immature Granulocytes % 1.3 %; Immature Granulocytes Absolute 0.34 #; Lymphocytes # 0.9 10*3/uL (1.4-4.0); Lymphocytes % 3.3 % (21.3-54.2); Mean Corpuscular HGB Conc 32.2 GM/DL (32-36); Mean Corpuscular Hemoglobin 28 PG (27-34); Mean Corpuscular Volume 87.8 FL (87-102); Mean Platelet Volume 12.4 FL (9.6-12.0); Monocytes # 1.5 10*3/uL (0.11-0.8); Monocytes % 5.8 % (1.7-12.7); Neutrophils # 23.4 10*3/uL (1.4-7.4); Neutrophils % 89.4 % (38.7-73.9); Platelet Count 410 T/CUMM (130-400); Red Blood Count 2.94 MC/CUMM (3.8-5.5); Red Cell Distribution Width 15.6 % (9.3-17.3); White Blood Count 26.2 T/CUMM (4-12)
[2016-10-03 05:40] LABS: Calcium 9.1 MG/DL (8.5-10.1); Magnesium 2.8 MG/DL (1.8-2.4); Osmolality,Calculated 303.3 MOS/KG (273-304); Potassium 5.2 MMOL/L (3.5-5.1)
[2016-10-03 05:46] LABS: Calcium 9.1 MG/DL (8.5-10.1); Osmolality,Calculated 305.1 MOS/KG (273-304); Potassium 5.1 MMOL/L (3.5-5.1); Prealbumin 17.2 MG/DL (20-40)
[2016-10-03 05:47] LABS: Hypochromasia 1+; Lymphocytes 2 % (20-55); Ovalocytes Slight; Platelet Estimate Adequate; Segmented Neutrophils 94 % (50-85); Total Cells Counted 100
[2016-10-03 05:48] LABS: Giant Platelets Few; Microcytosis Slight
[2016-10-03] MEDS: LEVOTHYROXINE 25 MCG TABLET PO SCH (06:37)
[2016-10-03] MEDS: methylPREDNISolone SOD SUC 40 MG/1 ML VIAL IV SCH ×2 (07:21→18:27)
--- NOTE | 2016-10-03 08:04 | XRay Report ---
Referring Physician: Ismael Duenas Exam: XR chest 1V portable Date: October 03, 2016 at 2:54 AM Reason: Ventilation Comparison: Chest one view portable October 02, 2016 Findings: A right-sided central venous catheter and cardiac pacing device are again in place. The cardiac silhouette is again mildly enlarged, and there is prominent calcified plaque at the thoracic aorta. The interstitial markings are prominent bilaterally, and there are opacities within both lower lung zones. This is concerning for pulmonary edema and atelectasis. Pneumonia is felt less likely but is not excluded. No pneumothorax is identified, but there is mild left pleural fluid. The osseous structures appear stable. Impression: There has been no significant change when considering slight differences in patient positioning. PROCEDURE INTERPRETED AT [facility] Final Report Signed by: Dr. Kirill Beck
--- NOTE | 2016-10-03 08:39 | Cardiology Progress Note ---
Stanislaw Foley April, RN, am scribing for, and in the presence of, Gato Mcgill MD 08:28. Assessment and Plan (1) Elevated troponin Status: Acute Assessment and plan: 1. 81-year-old female with history of mild nonischemic cardiomyopathy followed by Dr. Petty with history of small bowel obstruction with dehydration apparently significant GERD, and history of remote pacemaker placement weaned off ventilator 2. Last week she had trivial troponin elevation of 0.05, 0.06 which are really not elevated particularly given her renal dysfunction of the time. Renal function is improved now with creatinine of approximately 1.3. 3. Apparent history of asthma/bronchospasm; start low-dose Bystolic 2.5 mg daily; we could consider adding low-dose MILDRED inhibitor or ARB later. Her EF was a little below her previous 45% last week when echo showed EF 35-40%. She has chronic LBBB 4. Previously was on spironolactone 25 mg daily, but given her creatinine was up 3 last week would hold off on this. Current Visit: Yes (2) Dehydration Status: Acute Current Visit: Yes (3) Chronic renal insufficiency Status: Chronic Current Visit: Yes Qualifiers: Chronic kidney disease stage: stage 2 (mild) Qualified Code(s): N18.2 - Chronic kidney disease, stage 2 (mild) (4) Hypertension Status: Chronic Current Visit: Yes (5) Nonischemic cardiomyopathy Status: Chronic Current Visit: Yes (6) COPD (chronic obstructive pulmonary disease) Status: Chronic Current Visit: Yes (7) Diabetes mellitus Status: Chronic Current Visit: Yes (8) History of breast cancer Status: Chronic Current Visit: No (9) Status post placement of cardiac pacemaker Status: Chronic Current Visit: Yes (10) On mechanically assisted ventilation Status: Acute Current Visit: Yes Cardiology - PN: Subj Interval history: SALT MANAGER: DR. PETTY PCP: DR. MINA ROBLES LIFESTYLE COORDINATOR: DR. ABBE CHAWLA Ms. Oconnell is an 81-year-old female with a history of hypertension, diabetes, nonischemic cardiomyopathy, pacemaker, chronic left bundle branch block, hypothyroidism, COPD, chronic renal insufficiency, obesity, sleep apnea, and breast cancer. She presented to the emergency department 09/20/2016 with a two- week history of progressive shortness of breath. The night before she had became nauseated and vomited all night. She was hypotensive on arrival IV fluid was given and that improved. NG tube was placed and drained orange tinged fluid. She underwent a CT scan of the abdomen which showed a transition point which seems to lie along the anterior abdominal wall to the right of midline and appearance suggesting abdominal wall adhesion. There was also noted to be wall thickening within the second portion of the duodenum and appearance of lung parenchyma which may in part reflect infectious process superimposed on chronic interstitial disease within the left lung base. On 02/05/16, she had an incarcerated hernia which caused a small bowel obstruction for which she underwent repair. She was admitted to the hospitalist and general surgery saw her in consultation. We were consulted to see her due to an elevated troponin of 0.063. These numbers never increased and was felt to be a trivial finding with no evidence of acute coronary syndrome. Her kidney function was also elevated, with a creatinine of 3.60 on admission. Her small bowel obstruction has improved during her stay. Last weekend she required intubation due to respiratory failure. Ms. Oconnell is seen housed in the intensive care unit. She was extubated yesterday and is tolerating that well, O2 sat 97% on oxygen via nasal cannula. She denies any pain or discomfort, states her breathing is doing good. l tacker shows sinus rhythm with heart rates in the 90s. Pressures are good, currently 125/64. She states she had some Jell-O yesterday and tolerated that well, since that she is supposed to get food today. Her H&H continues to drop, today it is 8.3 and 25.8. Creatinine has improved since admission, at 1.3 today. Potassium is elevated at 5.2, magnesium elevated at 2.8. Chest x-ray is read as unchanged. Exam (Progress Note) - Constitutional Vitals: Period Temp Pulse Resp BP Sys/Quezada Pulse Ox Last 24 Hr 98.3 F-100.0 F 78-101 15-34 101-145/41-82 95-100 General appearance: no acute distress, over weight Exam: General appearance: No acute distress, morbidly obese - Head Head exam: Absent: abrasion, hematoma - Eye Eye exam: Absent: periorbital swelling, laceration to eyelids - Respiratory Respiratory exam: Present: Clear to auscultation, oxygen via nasal cannula. Absent: accessory muscle use - Cardiovascular Cardiovascular exam: Present: regular rate and rhythm. Absent: rubs - GI/Abdominal GI/Abdominal exam: Present: hypoactive bowel sounds, soft. Absent: distended - Neurological Exam Neurological exam: Present: Awake and alert - Psychiatric Psychiatric exam: Present: Normal affect, normal mood. - Skin Skin exam: Present: warm, dry - Neck Neck exam: Present: normal inspection - Respiratory Respiratory exam: Present: rhonchi. Absent: stridor, wheezes - Cardiovascular Cardiovascular exam: Present: regular rate and rhythm. Absent: diastolic murmur , rubs - GI/Abdominal GI/Abdominal exam: Present: soft - Extremities Exam Extremities exam: Absent: edema - Neurological Exam Neurological exam: Present: alert, oriented X3 - Psychiatric Psychiatric exam: Present: flat affect Result/EKG - Labs CBC & BMP: 10/03/16 04:12 10/03/16 04:12 Lab Results: I have reviewed the past 24 hour labs Labs: Laboratory Results - last 24 hr 10/02/16 10/02/16 10/02/16 08:35 09:30 11:35 WBC RBC Hgb Hct MCV MCH MCHC RDW Plt Count MPV Neut % (Auto) Lymph % (Auto) [place] % (Auto) Eos % (Auto) Baso % (Auto) Neut # (Auto) Lymph # (Auto) [place] # (Auto) Eos # (Auto) Baso # (Auto) Total Counted Immature Gran % Nucleated RBC % Immature Gran # Segmented Neutrophils Lymphocytes Monocytes Nucleated RBCs # Platelet Estimate Giant Platelets Hypochromasia Microcytosis Ovalocytes ABG pH 7.405 7.411 ABG pCO2 38.8 39.3 ABG pO2 115.0 H 89.8 ABG HCO3 24.3 24.8 ABG Total CO2 22.1 L 22.9 L ABG O2 Saturation 98.6 97.1 ABG Base Excess -0.2 0.4 FiO2 Sodium Potassium Chloride Carbon Dioxide Anion Gap BUN Creatinine GFR Calculation BUN/Creatinine Ratio Glucose POC Glucose Calculated Osmolality Calcium Phosphorus Magnesium Prealbumin Triglycerides Vancomycin Trough 18.1 10/02/16 10/02/16 10/03/16 12:32 17:26 00:18 WBC RBC Hgb Hct MCV MCH MCHC RDW Plt Count MPV Neut % (Auto) Lymph % (Auto) [place] % (Auto) Eos % (Auto) Baso % (Auto) Neut # (Auto) Lymph # (Auto) [place] # (Auto) Eos # (Auto) Baso # (Auto) Total Counted Immature Gran % Nucleated RBC % Immature Gran # Segmented Neutrophils Lymphocytes Monocytes Nucleated RBCs # Platelet Estimate Giant Platelets Hypochromasia Microcytosis Ovalocytes ABG pH ABG pCO2 ABG pO2 ABG HCO3 ABG Total CO2 ABG O2 Saturation ABG Base Excess FiO2 Sodium Potassium Chloride Carbon Dioxide Anion Gap BUN Creatinine GFR Calculation BUN/Creatinine Ratio Glucose POC Glucose 355 H 328 H 293 H Calculated Osmolality Calcium Phosphorus Magnesium Prealbumin Triglycerides Vancomycin Trough 10/03/16 10/03/16 10/03/16 03:40 04:12 04:12 WBC 26.2 H RBC 2.94 L Hgb 8.3 L Hct 25.8 L MCV 87.8 MCH 28 MCHC 32.2 RDW 15.6 Plt Count 410 H MPV 12.4 H Neut % (Auto) 89.4 H Lymph % (Auto) 3.3 L [place] % (Auto) 5.8 Eos % (Auto) 0.0 Baso % (Auto) 0.2 Neut # (Auto) 23.4 H Lymph # (Auto) 0.9 L [place] # (Auto) 1.5 H Eos # (Auto) 0.0 Baso # (Auto) 0.1 Total Counted 100 Immature Gran % 1.3 Nucleated RBC % 0.0 Immature Gran # 0.34 Segmented Neutrophils 94 H Lymphocytes 2 L Monocytes 4 Nucleated RBCs # 0.00 Platelet Estimate Adequate Giant Platelets Few Hypochromasia 1+ Microcytosis Slight Ovalocytes Slight ABG pH 7.408 ABG pCO2 40.0 ABG pO2 88.7 ABG HCO3 24.9 ABG Total CO2 22.6 L ABG O2 Saturation 97.0 ABG Base Excess 0.6 FiO2 32.00 Sodium 142 Potassium 5.1 Chloride 109 H Carbon Dioxide 24 Anion Gap 14.1 BUN 49 H Creatinine 1.30 H GFR Calculation 50 BUN/Creatinine Ratio 37.00 H Glucose 277 H POC Glucose Calculated Osmolality 305.1 H Calcium 9.1 Phosphorus 2.0 L Magnesium Prealbumin 17.2 L Triglycerides Vancomycin Trough 10/03/16 10/03/16 04:12 04:12 WBC RBC Hgb Hct MCV MCH MCHC RDW Plt Count MPV Neut % (Auto) Lymph % (Auto) [place] % (Auto) Eos % (Auto) Baso % (Auto) Neut # (Auto) Lymph # (Auto) [place] # (Auto) Eos # (Auto) Baso # (Auto) Total Counted Immature Gran % Nucleated RBC % Immature Gran # Segmented Neutrophils Lymphocytes Monocytes Nucleated RBCs # Platelet Estimate Giant Platelets Hypochromasia Microcytosis Ovalocytes ABG pH ABG pCO2 ABG pO2 ABG HCO3 ABG Total CO2 ABG O2 Saturation ABG Base Excess FiO2 Sodium 141 Potassium 5.2 H Chloride 108 H Carbon Dioxide 25 Anion Gap 13.2 BUN 49 H Creatinine 1.30 H GFR Calculation 50 BUN/Creatinine Ratio 37.00 H Glucose 280 H POC Glucose Calculated Osmolality 303.3 Calcium 9.1 Phosphorus Magnesium 2.8 H Prealbumin Triglycerides 58 Vancomycin Trough - Diagnostic Findings Procedure: Chest x-ray: report reviewed by me - EKG EKG results: interpreted by me EKG shows: sinus rhythm Nano Foley Randall Scott, MD, personally performed the services described in this documentation, ascribed by Paris Dover RN in my presence, and it is both accurate and complete [id number] .
[2016-10-03] MEDS ORDERED: CARVEDILOL 3.125 MG TABLET PO SCH (09:00)
[2016-10-03] MEDS: MUPIROCIN 2% OINT 22 GM TUBE TOP SCH ×2 (09:30→21:46)
[2016-10-03] MEDS: VANCOMYCIN INJ 1,000 MG in SODIUM CHLORIDE 0.9% 250 ML IV SCH (09:31)
[2016-10-03] MEDS: DESITIN 4OZ/NYSTATIN 15 GRAM MIXTURE PASTE TOP SCH ×2 (09:31→21:46)
[2016-10-03] MEDS: INSULIN GLARGINE 100 UNIT/ML SUBCUT SCH ×2 (09:31→10:51)
[2016-10-03] MEDS: NEBIVOLOL 5 MG TABLET PO SCH (09:32)
--- NOTE | 2016-10-03 09:35 | General Surgery Progress Note ---
Assessment and Plan (1) SBO (small bowel obstruction) Status: Resolved Assessment and plan: Appears to be resolved. Patient currently tolerating clears. Recommend advancing diet slowly as tolerated. There was concern for ileus, but the patient did have 2 more bowel movements yesterday. We will continue to monitor. Current Visit: No Subjective Patient reports: Present: afebrile (Pt has been extubated. Sitting up in bed awake and alert. Attempting clear diet - tolerated 1.5 cups ), other (Patient has been exposed to smoke this morning. She is awake alert. She is attempting clears and has had 1/2 cups of juice without any nausea vomiting or abdominal pain. She has no complaints at the time of my assessment. 2 bowel movements documented yesterday.) Exam - Constitutional Vitals: Period Temp Pulse Resp BP Sys/Quezada Pulse Ox Last 24 Hr 98.3 F-100.0 F 78-101 15-34 101-145/41-80 95-100 General appearance: no acute distress - GI/Abdominal GI/Abdominal exam: Present: normal bowel sounds, distended (mild), soft. Absent : tenderness Results - Labs CBC & BMP: 10/03/16 04:12 10/03/16 04:12
--- NOTE | 2016-10-03 10:03 | Hospitalist Progress Note ---
Assessment and Plan (1) Acute respiratory failure Status: Acute Assessment and plan: The patient required mechanical ventilation due to aspiration. The patient is improved and now extubated. We will request speech therapy evaluation of her swallowing. The patient is on clear liquids for now. Current Visit: Yes Qualifiers: Respiratory failure complication: hypoxia and hypercapnia Qualified Code(s) : J96.01 - Acute respiratory failure with hypoxia; J96.02 - Acute respiratory failure with hypercapnia (2) COPD (chronic obstructive pulmonary disease) Status: Chronic Current Visit: Yes Qualifiers: COPD type: chronic bronchitis Chronic bronchitis type: simple Qualified Code(s): J41.0 - Simple chronic bronchitis (3) Nonischemic cardiomyopathy Status: Chronic Current Visit: Yes (4) Hypertension Status: Chronic Current Visit: Yes Qualifiers: Hypertension type: essential hypertension Qualified Code(s): I10 - Essential (primary) hypertension Hospitalist: Subjective Interval history: The patient was admitted to the hospital with symptoms of small bowel obstruction. Her obstruction was associated with vomiting and aspiration requiring mechanical ventilation. The patient's obstruction is now somewhat relieved and she is having bowel movement again. The patient was successfully extubated but bronchoscopy did show evidence of aspiration. The patient is still having some difficulty swallowing liquids today. Exam - Constitutional Vitals: Period Temp Pulse Resp BP Sys/Quezada Pulse Ox Last 24 Hr 98.3 F-100.0 F 78-101 15-34 101-145/41-80 95-100 Exam: Constitutional System: Mild distress. No tremulousness. The patient is tolerating some clear liquids but has coughing afterwards. Head: Normocephalic, atraumatic. Ears, Nose and Throat System: No evidence of Otitis or Mastoiditis. No epistaxis or discharge Eyes System: Pupils equal, round, and reactive. Extraocular muscles intact. Neck: Supple, without adenopathy, No jugular venous distention. No thyromegaly , neck mass, or prior surgery apparent. Respiratory System: Chest clear to auscultation. Upper airway congestion Cardiovascular System: Heart with regular rate and rhythm. No murmur. GI System: Abdomen soft, nontender. Normo active bowel sounds present. Musculoskeletal System: limbs with no pedal edema. Full distal pulses. Neurological System: No discernable sensory deficit. No aphasia Psychiatric System: Conversation is rational Results - Labs CBC & BMP: 10/03/16 04:12 10/03/16 04:12 Lab Results: I have reviewed the past 24 hour labs
--- NOTE | 2016-10-03 10:33 | Pulmonology Progress Note ---
Pulmonary - PN: Subj Interval history: This 81-year-old black female whom I saw in pulmonary consultation on 09/25/2016. I was asked to manage her pulmonary problems and her mechanical ventilation. Patient originally been admitted with small bowel obstruction and septic shock. She also had acute kidney injury and she was dehydrated and she had mild elevation of her troponins. She had acute renal failure with hypotension and her lactic acids were elevated 6.6 and creatinine was 3.6. Dr. Henrry Moore saw in surgery consultation she was treated this conservatively. From pulmonary standpoint she became exhausted on the night of 09/24/2016 and reached a point that she could not continue to breathe and she required intubation mechanical ventilation. My impressions are. 1. Right lower lung, left upper lung and left lower lung pneumonia with atelectasis. This patient's had small bowel obstruction with nausea and vomiting. I suspect we have aspiration with bacterial superinfection. 2. Small bowel obstruction. Patient's had no bowel movements but she is developing bowel sounds. 3. Insulin-dependent diabetes mellitus 4. History of high blood pressure 5. COPD/asthma 6. Cardiac pacemaker 7. Breast cancer. 2014 8. Obesity 9. Former smoker 10. Acute on chronic renal failure. 09/26/2016. Earlier today this patient was evaluated with fiberoptic bronchoscopy . She had retained secretions bilaterally. She had evidence of mild gastric acid injury which is most prominent in the left upper lung and left lower lung and right lower lung. Multiple specimens were sent for cultures. She tolerated procedure well. Pre-bronchoscopy chest x-ray showed a fairly dense left lower lung infiltrate. There are scattered infiltrates in the right upper and right lower lung. There are no positive cultures. Sputum Gram stain from showed many gram-positive cocci. On mechanical ventilation with FiO2 of 50% ABGs show pH 7.395, PCO2 37, PO2 157 and bicarbonate 23. Electrolytes are close to normal. Creatinine is 2.10 with a BUN of 74. White count is elevated at 26,000 with 79 segs 6 lymphs and 10 monos. H&H is dropped to 9.9/ 31.0 and platelets are 224,000. Glucoses are elevated. Doppler venogram showed no evidence of deep venous thrombophlebitis. This patient's on stage to the weaning protocol. She was tried on a T-tube for short time and did not terrible. Will continue present protocols and make sure she is also on physical therapy protocol. 09/27/2016. Today's chest x-ray shows improvement. There is better variation. Patient has cardiomegaly. Her sputum is growing E. coli and methicillin- resistant staph aureus. Gram-positive cocci gram-negative rods are growing from bronchoscopy specimens taken 2016. This patient originally presented with small bowel obstruction was covered with GI medicines. The present time I have left her on vancomycin. I have stopped her Levaquin and I have stopped her Cleocin. I have added Fortaz. I have consulted infectious disease to help with management. White blood cell count remains elevated at 28,900 with 83 segs. H&H is 9.2/28.1. Platelets of 203,000. Creatinine is 2.00 with a BUN of 76. Electrolytes are normal. C-reactive protein is elevated at 9.98. Vancomycin trough level is 4.8. This is being managed by pharmacology. ABGs on FiO2 of 40% and mechanical ventilation showed pH of 7.445, PCO2 of 33, PO2 of 136 and bicarb of 22.2. The patient still in stage III to weaning protocol. Physical therapy protocol as previously been ordered. 09/28/2016. I appreciate Dr. Tirado's infectious disease consultation. Today's chest x-ray shows some mild alveolar infiltrate in the right lower lung the left upper lung. Left lower lung is not well seen. Patient's sputum and bronchoscopy specimens are growing E. coli and methicillin-resistant staph aureus. She is now been advanced to stage V the weaning protocol. ABGs are stable. White count remains elevated 29,400. H&H is stable at 10.0/30.6 and platelets are 259,000. Electrolytes are normal. Creatinine is dropped to 1.80 with a BUN of 75. 09/29/2016. Today's chest x-ray shows cardiomegaly. There are increased interstitial markings in the medial basal segment of the right lower lung and also in the left perihilar area. These are resolving infiltrates. There is no congestive heart failure. Patient's on stage V the weaning protocol. ABGs on mechanical ventilation FiO2 40% shows a pH of 7.48, PCO2 of 30.6, PO2 of 152 and a bicarb of 24.6. Electrolytes are normal. Creatinine is 1.6 with a BUN of 66 white count remains elevated 26,000 with 82% segs H&H is 9.9/29.9 and platelets of 293,000. Bronchoscopy specimens grew E. coli and methicillin- resistant staph aureus which would be in treated by infectious disease 09/30/2016. This is a 81-year-old black female who was originally admitted with small bowel obstruction. She was treated conservatively in this included an NG tube with suction. Later on she became exhausted and required intubation mechanical ventilation. She has some element of aspiration and she had a lot of retained secretions. Bronchoscopy specimens have grown E. coli and methicillin-resistant staph aureus. Infectious diseases on the case. Today's chest x-ray shows cardiomegaly there is a residual right lower lung and left perihilar infiltrate. This is alveolar with some increased interstitial markings. Patient's on stage V of the weaning protocol. ABGs on mechanical ventilation and FiO2 40% shows a pH 7.44, PCO2 36, PO2 143 and a bicarb of 25. White count remains elevated 22,900. H&H is stable at 9.8/29.6. Platelets 338, 000. Creatinine is gradually fallen to 1.50 with a BUN of 51. We will continue the weaning protocol on this patient. We need careful attention to removal of pulmonary secretions. It is possible that she could be extubated in the next 3 or 4 days. She is recently been started on NG feedings. She had 270 cc of residual feedings this morning and I have asked that we change her back to IV hyperalimentation. She will need adequate nutrition in order to come off the ventilator. 10/03/2016. This patient was extubated 10/02/2016 and she is done well since then. Her chest x-ray is better. Previously noted bilateral infiltrates are less prominent. ABGs on FiO2 32% show a pH of 7.408. PCO2 40. PO2 of 88.7 and a bicarb of 25. White blood cell count remains elevated 26,000. H&H is 8.3 /25.8. Platelets are 411,000. Electrolytes are normal. Creatinine is 1.30 with a BUN of 49. Vancomycin trough level is 18.1. This is being managed by pharmacology. This patient continues on IV hyperalimentation. I think we should continue this and we can retry p.o. intake but only a few days ago she had 275 cc of gastric residual. Physical exam. General. No apparent distress. Psychiatric. Patient just looks at me but will not answer any questions. Vital signs. See below Neurologic. Patient sedated but she appears to move all fours. Face is symmetrical. Tongue is very large Neck is symmetrical no meningismus Chest reveals prominent large airway congestion Heart no gallop Abdomen rare bowel sounds Lower extremities. Chronic venous stasis. No evidence of deep venous thrombophlebitis. Lymphatics. No submandibular cervical supraclavicular adenopathy. Skin the face and hands show no cancerous infectious lesions. No other areas of skin were examined The remainder of the physical exam is negative Plan. 09/25/2006 1. Agree with antibiotics. Levaquin and Flagyl. Vancomycin 2. Fiberoptic bronchoscopy 3. Patient's on pressor agents to support of breath blood pressure at the present time 4. Proton pump inhibitor protocol 5. Agree with deep venous thrombophlebitis prevention protocol 6. Mechanical ventilation weaning protocol 7. Mechanical ventilation physical therapy protocol 8. Daily chest x-ray ABGs and lab 9. Doppler venograms of lower extremity 10. See orders. 11. Sputum for Gram stain culture and sensitivity 09/26/2016. 1. See today's note above. 2. Check bronchoscopy specimen 3. All applicable protocols Home Medications 09/27/2016. 1. Sputum specimens are positive for E. coli and methicillin-resistant staph aureus. See today's note above about antibiotic changes made. Infectious disease has been consulted. 2. Continue weaning protocol 3. Continue daily ABGs chest x-ray and lab. 09/28/2016. 1. See today's note above. 2. Continue daily chest x-ray, ABGs and lab. 3. Stage V weaning protocol 4. Physical therapy protocol 09/29/2016. 1. See today's note above. 2. Daily chest x-ray, ABGs and lab. 3. Weaning protocol 4. Physical therapy protocol 5. Tongue is very large I hope this does not become a problem with weaning. The patient is not on MILDRED inhibitors or carbs. I do not see any skin rash. 09/30/2016. 1. See today's note above. 2. Daily chest x-ray, ABGs and lab 3. Stage V weaning protocol 4. Physical therapy protocol. 5. Keep an eye on the patient's tongue. He is unusually large. Exam (Progress Note) - Constitutional Vitals: Period Temp Pulse Resp BP Sys/Quezada Pulse Ox Last 24 Hr 98.3 F-100.0 F 78-101 15-34 101-145/41-80 95-100 Results - Labs CBC & BMP: 10/03/16 04:12 10/03/16 04:12
[2016-10-03] MEDS: ELECTROLYTE IV SCH ×2 (13:05→13:15)
[2016-10-03] MEDS: [UNRECOGNIZED DRUG - OTHER] IV SCH ×2 (13:05→13:15)
[2016-10-03] MEDS: TRACE ELEMENTS IV SCH ×2 (13:05→13:15)
[2016-10-03] MEDS: MULTIVITAMIN IV SCH ×2 (13:05→13:15)
--- NOTE | 2016-10-03 13:34 | Infectious Disease Progress ---
Assessment and Plan (1) Pneumonia Status: Acute Assessment and plan: Probably from aspiration. MRSA and E. coli cultured. Patient clinically better now off the vent. She has persistent leukocytosis but this may be because of the steroid she is getting. Recommendations: Continue cefazolin and vancomycin for 2 more days Current Visit: Yes (2) COPD (chronic obstructive pulmonary disease) Status: Chronic Current Visit: Yes Qualifiers: COPD type: chronic bronchitis Chronic bronchitis type: simple Qualified Code(s): J41.0 - Simple chronic bronchitis (3) Chronic renal insufficiency Status: Chronic Assessment and plan: Acute on chronic renal insufficiency. Renal function will have to be monitored closely on the vancomycin. Renal function slowly improving. Current Visit: Yes Qualifiers: Chronic kidney disease stage: stage 2 (mild) Qualified Code(s): N18.2 - Chronic kidney disease, stage 2 (mild) (4) Diabetes mellitus Status: Chronic Current Visit: Yes (5) Hypertension Status: Chronic Current Visit: Yes Qualifiers: Hypertension type: essential hypertension Qualified Code(s): I10 - Essential (primary) hypertension Infectious Disease - PN: Subj Interval history: Patient got extubated yesterday, she has some labored breathing at times that she has been maintaining good oxygen saturations. Today when I saw she denied any complaints. She has been afebrile. Minimal cough. Infectious Disease Exam (PN) - Constitutional Vitals: Temp Pulse Resp BP Pulse Ox 99.7 F H 83 15 118/61 100 10/03/16 08:00 10/03/16 10:55 10/03/16 10:55 10/03/16 10:00 10/03/16 10:55 General appearance: no acute distress Exam: General appearance: Awake and responsive, answers questions appropriately - Eye Eye exam: Present: EOMI. no icterus Pupils: Present: VALENT[place] - ENT ENT exam: No oral exudates - Respiratory Respiratory exam: Harsh breath sounds, bilateral transmitted sounds - Cardiovascular Cardiovascular exam: regular rate and rhythm, no murmurs - GI/Abdominal GI/Abdominal exam: normal bowel sounds, soft, non-tender, no organomegaly or mass - Extremities Exam Extremities exam: no edema - Skin Skin exam: no rash Results - Labs CBC & BMP: 10/03/16 04:12 10/03/16 04:12 Lab Results: I have reviewed the past 24 hour labs - Diagnostic Findings Procedure: Chest x-ray: image reviewed by me, report reviewed by me (Patchy opacities bilaterally, worse in lung bases)
[2016-10-03] MEDS: FAT EMULSION 20% 250 ML IV SCH (15:32)
[2016-10-03] MEDS: ENOXAPARIN 30 MG/0.3 ML SYRINGE SUBCUT SCH (15:33)
[2016-10-03] MEDS: PHENYLEPHRINE DRIP 40 MG/250 ML PREMIX IV SCH (22:57)
[2016-10-04] MEDS: INSULIN LISPRO 100 UNIT/ML SUBCUT SCH ×5 (00:21→23:58)
[2016-10-04] MEDS: METOCLOPRAMIDE 10 MG/2 ML VIAL IM SCH ×3 (00:22→12:18)
[2016-10-04] MEDS: ALBUTEROL/IPRATROPIUM 3 ML NEB RESP TX SCH ×6 (04:10→22:56)
[2016-10-04 05:00] LABS: ABG Base Excess -1.3 MMOL/L (-2.5-2.5); ABG HCO3 23.2 MMOL/L (20-26); ABG Oxygen Saturation 91.3 % (95-100); ABG PCO2 42.1 MM HG (35-48); ABG PH 7.364 (7.35-7.45); ABG PO2 62.8 MM HG (80-95); Allen Test Positive
[2016-10-04] MEDS ORDERED: FUROSEMIDE 40 MG/4 ML VIAL ONE (05:40)
[2016-10-04] MEDS ORDERED: FUROSEMIDE 40 MG/4 ML VIAL IV ONE (05:40)
[2016-10-04] MEDS ORDERED: RACEPINEPHRINE 0.5 ML NEB RESP TX ONE (05:41)
[2016-10-04] MEDS ORDERED: RACEPINEPHRINE 0.5 ML NEB RESP TX PRN (05:42)
[2016-10-04 05:55] LABS: Basophils # 0.1 10*3/uL (0.0-0.2); Basophils % 0.2 % (0.0-0.8); Hematocrit 31.5 VOL% (35.7-47.0); Hemoglobin 9.9 GM/DL (12.0-16.0); Immature Granulocytes % 1.9 %; Immature Granulocytes Absolute 0.69 #; Lymphocytes # 1.7 10*3/uL (1.4-4.0); Lymphocytes % 4.7 % (21.3-54.2); Mean Corpuscular HGB Conc 31.4 GM/DL (32-36); Mean Corpuscular Hemoglobin 28 PG (27-34); Mean Corpuscular Volume 89.7 FL (87-102); Mean Platelet Volume 11.9 FL (9.6-12.0); Monocytes # 1.9 10*3/uL (0.11-0.8); Monocytes % 5.3 % (1.7-12.7); Neutrophils # 32.2 10*3/uL (1.4-7.4); Neutrophils % 87.9 % (38.7-73.9); Platelet Count 566 T/CUMM (130-400); Red Blood Count 3.51 MC/CUMM (3.8-5.5); Red Cell Distribution Width 15.8 % (9.3-17.3); White Blood Count 36.6 T/CUMM (4-12)
[2016-10-04] MEDS: ALUMINUM/MAGNES/SIMETH MAX STR 30 ML UDCUP PER TUBE SCH ×4 (06:08→22:17)
[2016-10-04] MEDS ORDERED: DEXAMETHASONE 10 MG/1 ML VIAL IV ONE (06:08)
[2016-10-04] MEDS ORDERED: diphenhydrAMINE 50 MG/1 ML VIAL IV ONE (06:11)
[2016-10-04] MEDS ORDERED: diphenhydrAMINE 50 MG/1 ML VIAL ONE (06:14)
[2016-10-04 06:20] LABS: Calcium 9.3 MG/DL (8.5-10.1); Magnesium 3.1 MG/DL (1.8-2.4); Osmolality,Calculated 304.7 MOS/KG (273-304); Potassium 5.5 MMOL/L (3.5-5.1)
[2016-10-04 06:24] LABS: Lymphocytes 5 % (20-55); Segmented Neutrophils 90 % (50-85); Total Cells Counted 100
[2016-10-04 06:26] LABS: Hypochromasia 1+; Platelet Estimate Increased
[2016-10-04] MEDS: MULTIVITAMIN IV SCH ×3 (06:30→18:31)
[2016-10-04] MEDS: [UNRECOGNIZED DRUG - OTHER] IV SCH ×2 (06:30→16:06)
[2016-10-04] MEDS: TRACE ELEMENTS IV SCH ×3 (06:30→18:31)
[2016-10-04] MEDS: ELECTROLYTE IV SCH ×2 (06:30→16:06)
[2016-10-04] MEDS: methylPREDNISolone SOD SUC 40 MG/1 ML VIAL IV SCH ×2 (06:58→18:35)
--- NOTE | 2016-10-04 07:02 | XRay Report ---
Portable chest Date: 10/04/2016 Clinical history: Cough Comparison: 10/03/2016 Technique: Portable AP sitting chest Findings: Stable cardiomegaly and right subclavian ventricular permanent pacemaker. Stable right venous access catheter. Progressive diffuse parenchymal findings with small pleural effusions. More prominent pulmonary vasculature/suzi with degenerative changes. Impression: Progressive pulmonary edema/infiltration/atelectasis with small pleural effusions. Stable right subclavian ventricular permanent pacemaker. PROCEDURE INTERPRETED AT [facility] DEPARTMENT OF RADIOLOGY Final Report Signed by: Dr. Zaira Stovall
[2016-10-04] MEDS: LEVOTHYROXINE 25 MCG TABLET PO SCH (07:46)
[2016-10-04] MEDS ORDERED: NITROGLYCERIN DRIP 50 MG/250 ML BOTTLE IV ONE (08:27)
[2016-10-04] MEDS ORDERED: ALBUTEROL/IPRATROPIUM 3 ML NEB RESP TX STA (08:40)
--- NOTE | 2016-10-04 08:47 | XRay Report ---
Portable chest Date: 10/04/2016 Clinical history: CHF Comparison: 10/04/2016 Technique: Portable AP sitting chest Findings: Stable cardiomegaly and right subclavian ventricular pacemaker. Right venous access catheter is stable in position. Progressive diffuse parenchymal findings with minimally larger pleural effusions. Prominent pulmonary vasculature with degenerative changes. Impression: Progressive pulmonary edema/infiltration/atelectasis with minimally larger small pleural effusions. Stable right subclavian ventricular permanent pacemaker. PROCEDURE INTERPRETED AT [facility] DEPARTMENT OF RADIOLOGY Final Report Signed by: Dr. Zaira Stovall
[2016-10-04] MEDS: INSULIN GLARGINE 100 UNIT/ML SUBCUT SCH (09:26)
[2016-10-04] MEDS: LISINOPRIL 2.5 MG TABLET PO SCH ×2 (09:26→22:17)
[2016-10-04] MEDS: FUROSEMIDE 40 MG/4 ML VIAL IV SCH (09:27)
[2016-10-04] MEDS: MUPIROCIN 2% OINT 22 GM TUBE TOP SCH ×2 (09:27→22:11)
[2016-10-04] MEDS: NITROGLYCERIN DRIP 50 MG/250 ML BOTTLE IV SCH (09:38)
[2016-10-04] MEDS: VANCOMYCIN INJ 1,000 MG in SODIUM CHLORIDE 0.9% 250 ML IV SCH (09:39)
[2016-10-04] MEDS: DESITIN 4OZ/NYSTATIN 15 GRAM MIXTURE PASTE TOP SCH ×2 (09:42→22:11)
--- NOTE | 2016-10-04 10:28 | Pulmonology Progress Note ---
Pulmonary - PN: Subj Interval history: This 81-year-old black female whom I saw in pulmonary consultation on 09/25/2016. I was asked to manage her pulmonary problems and her mechanical ventilation. Patient originally been admitted with small bowel obstruction and septic shock. She also had acute kidney injury and she was dehydrated and she had mild elevation of her troponins. She had acute renal failure with hypotension and her lactic acids were elevated 6.6 and creatinine was 3.6. Dr. Henrry Moore saw in surgery consultation she was treated this conservatively. From pulmonary standpoint she became exhausted on the night of 09/24/2016 and reached a point that she could not continue to breathe and she required intubation mechanical ventilation. My impressions are. 1. Right lower lung, left upper lung and left lower lung pneumonia with atelectasis. This patient's had small bowel obstruction with nausea and vomiting. I suspect we have aspiration with bacterial superinfection. 2. Small bowel obstruction. Patient's had no bowel movements but she is developing bowel sounds. 3. Insulin-dependent diabetes mellitus 4. History of high blood pressure 5. COPD/asthma 6. Cardiac pacemaker 7. Breast cancer. 2014 8. Obesity 9. Former smoker 10. Acute on chronic renal failure. 09/26/2016. Earlier today this patient was evaluated with fiberoptic bronchoscopy . She had retained secretions bilaterally. She had evidence of mild gastric acid injury which is most prominent in the left upper lung and left lower lung and right lower lung. Multiple specimens were sent for cultures. She tolerated procedure well. Pre-bronchoscopy chest x-ray showed a fairly dense left lower lung infiltrate. There are scattered infiltrates in the right upper and right lower lung. There are no positive cultures. Sputum Gram stain from showed many gram-positive cocci. On mechanical ventilation with FiO2 of 50% ABGs show pH 7.395, PCO2 37, PO2 157 and bicarbonate 23. Electrolytes are close to normal. Creatinine is 2.10 with a BUN of 74. White count is elevated at 26,000 with 79 segs 6 lymphs and 10 monos. H&H is dropped to 9.9/ 31.0 and platelets are 224,000. Glucoses are elevated. Doppler venogram showed no evidence of deep venous thrombophlebitis. This patient's on stage to the weaning protocol. She was tried on a T-tube for short time and did not terrible. Will continue present protocols and make sure she is also on physical therapy protocol. 09/27/2016. Today's chest x-ray shows improvement. There is better variation. Patient has cardiomegaly. Her sputum is growing E. coli and methicillin- resistant staph aureus. Gram-positive cocci gram-negative rods are growing from bronchoscopy specimens taken 2016. This patient originally presented with small bowel obstruction was covered with GI medicines. The present time I have left her on vancomycin. I have stopped her Levaquin and I have stopped her Cleocin. I have added Fortaz. I have consulted infectious disease to help with management. White blood cell count remains elevated at 28,900 with 83 segs. H&H is 9.2/28.1. Platelets of 203,000. Creatinine is 2.00 with a BUN of 76. Electrolytes are normal. C-reactive protein is elevated at 9.98. Vancomycin trough level is 4.8. This is being managed by pharmacology. ABGs on FiO2 of 40% and mechanical ventilation showed pH of 7.445, PCO2 of 33, PO2 of 136 and bicarb of 22.2. The patient still in stage III to weaning protocol. Physical therapy protocol as previously been ordered. 09/28/2016. I appreciate Dr. Tirado's infectious disease consultation. Today's chest x-ray shows some mild alveolar infiltrate in the right lower lung the left upper lung. Left lower lung is not well seen. Patient's sputum and bronchoscopy specimens are growing E. coli and methicillin-resistant staph aureus. She is now been advanced to stage V the weaning protocol. ABGs are stable. White count remains elevated 29,400. H&H is stable at 10.0/30.6 and platelets are 259,000. Electrolytes are normal. Creatinine is dropped to 1.80 with a BUN of 75. 09/29/2016. Today's chest x-ray shows cardiomegaly. There are increased interstitial markings in the medial basal segment of the right lower lung and also in the left perihilar area. These are resolving infiltrates. There is no congestive heart failure. Patient's on stage V the weaning protocol. ABGs on mechanical ventilation FiO2 40% shows a pH of 7.48, PCO2 of 30.6, PO2 of 152 and a bicarb of 24.6. Electrolytes are normal. Creatinine is 1.6 with a BUN of 66 white count remains elevated 26,000 with 82% segs H&H is 9.9/29.9 and platelets of 293,000. Bronchoscopy specimens grew E. coli and methicillin- resistant staph aureus which would be in treated by infectious disease 09/30/2016. This is a 81-year-old black female who was originally admitted with small bowel obstruction. She was treated conservatively in this included an NG tube with suction. Later on she became exhausted and required intubation mechanical ventilation. She has some element of aspiration and she had a lot of retained secretions. Bronchoscopy specimens have grown E. coli and methicillin-resistant staph aureus. Infectious diseases on the case. Today's chest x-ray shows cardiomegaly there is a residual right lower lung and left perihilar infiltrate. This is alveolar with some increased interstitial markings. Patient's on stage V of the weaning protocol. ABGs on mechanical ventilation and FiO2 40% shows a pH 7.44, PCO2 36, PO2 143 and a bicarb of 25. White count remains elevated 22,900. H&H is stable at 9.8/29.6. Platelets 338, 000. Creatinine is gradually fallen to 1.50 with a BUN of 51. We will continue the weaning protocol on this patient. We need careful attention to removal of pulmonary secretions. It is possible that she could be extubated in the next 3 or 4 days. She is recently been started on NG feedings. She had 270 cc of residual feedings this morning and I have asked that we change her back to IV hyperalimentation. She will need adequate nutrition in order to come off the ventilator. 10/03/2016. This patient was extubated 10/02/2016 and she is done well since then. Her chest x-ray is better. Previously noted bilateral infiltrates are less prominent. ABGs on FiO2 32% show a pH of 7.408. PCO2 40. PO2 of 88.7 and a bicarb of 25. White blood cell count remains elevated 26,000. H&H is 8.3 /25.8. Platelets are 411,000. Electrolytes are normal. Creatinine is 1.30 with a BUN of 49. Vancomycin trough level is 18.1. This is being managed by pharmacology. This patient continues on IV hyperalimentation. I think we should continue this and we can retry p.o. intake but only a few days ago she had 275 cc of gastric residual. 10/04/2016. At around 430 or 5:00 this morning the patient developed increased respiratory distress. She was said to have stridor in her tracheal and large airway area. I was called. She was treated with ventilation therapy and since then I have added Acapella low and this is helped the patient mobilize secretions. Her chest x-ray showed evidence of pulmonary edema and she was given 40 of Lasix IV push. Since that time she has had at least 400 cc of urine output and her chest x-ray looks a lot better. She still has some bilateral pleural effusions involving the major fissures. On her chest x-ray there is dilatation of her stomach so I think we have to watch closely for reflux and aspiration in this patient. She is on Reglan I do not see any neurological side effects related to this. Patient's bronchial lavage has grown E. coli and methicillin-resistant staph aureus which is being treated by infectious disease. Patient's on cephalosporins. She is allergic to penicillin. I do not see any evidence of reaction from that standpoint. ABGs on FiO2 36% shows a pH 7.36, PCO2 42, PO2 of 63 and a bicarb of 23. White blood cell count is increased to 36,600. Platelets of 566,000 and H&H is 9.9/ 31.5. Potassium is 5.5. Creatinine is 1.4 and BUN is 59. Natruretic peptide is elevated at 1889. I started the patient on Lasix 20 IV push twice a day. Will need to watch her chest x-ray, BNP and BMP. Continue inhalation therapy. Physical exam. General. No apparent distress. Psychiatric. Patient just looks at me but will not answer any questions. Vital signs. See below Neurologic. Patient sedated but she appears to move all fours. Face is symmetrical. Tongue is very large Neck is symmetrical no meningismus Chest reveals prominent large airway congestion Heart no gallop Abdomen rare bowel sounds Lower extremities. Chronic venous stasis. No evidence of deep venous thrombophlebitis. Lymphatics. No submandibular cervical supraclavicular adenopathy. Skin the face and hands show no cancerous infectious lesions. No other areas of skin were examined The remainder of the physical exam is negative Plan. 09/25/2006 1. Agree with antibiotics. Levaquin and Flagyl. Vancomycin 2. Fiberoptic bronchoscopy 3. Patient's on pressor agents to support of breath blood pressure at the present time 4. Proton pump inhibitor protocol 5. Agree with deep venous thrombophlebitis prevention protocol 6. Mechanical ventilation weaning protocol 7. Mechanical ventilation physical therapy protocol 8. Daily chest x-ray ABGs and lab 9. Doppler venograms of lower extremity 10. See orders. 11. Sputum for Gram stain culture and sensitivity 09/26/2016. 1. See today's note above. 2. Check bronchoscopy specimen 3. All applicable protocols Home Medications 09/27/2016. 1. Sputum specimens are positive for E. coli and methicillin-resistant staph aureus. See today's note above about antibiotic changes made. Infectious disease has been consulted. 2. Continue weaning protocol 3. Continue daily ABGs chest x-ray and lab. 09/28/2016. 1. See today's note above. 2. Continue daily chest x-ray, ABGs and lab. 3. Stage V weaning protocol 4. Physical therapy protocol 09/29/2016. 1. See today's note above. 2. Daily chest x-ray, ABGs and lab. 3. Weaning protocol 4. Physical therapy protocol 5. Tongue is very large I hope this does not become a problem with weaning. The patient is not on MILDRED inhibitors or carbs. I do not see any skin rash. 09/30/2016. 1. See today's note above. 2. Daily chest x-ray, ABGs and lab 3. Stage V weaning protocol 4. Physical therapy protocol. 5. Keep an eye on the patient's tongue. He is unusually large. 10/04/2016. 1. See today's note above 2. Start Lasix 20 IV push every 12 hours. 3. Daily chest x-ray ABGs BMP and BNP. Exam (Progress Note) - Constitutional Vitals: Period Temp Pulse Resp BP Sys/Que[place] Pulse Ox Last 24 Hr 97.6 F-99.7 F 83-113 15-43 119-191/53-103 92-100 Results - Labs CBC & BMP: 10/04/16 05:45 10/04/16 05:45
--- NOTE | 2016-10-04 11:58 | Cardiology Progress Note ---
Stanislaw Foley April, RN, am scribing for, and in the presence of, Gato Mcgill MD 11:58. Assessment and Plan - Time spent with patient Time spent with patient: (Warm feet) (1) Elevated troponin Status: Acute Assessment and plan: Initial assessment and plan 10/03/2012: 1. 81-year-old female with history of mild nonischemic cardiomyopathy followed by Dr. Petty with history of small bowel obstruction with dehydration apparently significant GERD, and history of remote pacemaker placement weaned off ventilator 2. Last week she had trivial troponin elevation of 0.05, 0.06 which are really not elevated particularly given her renal dysfunction of the time. Renal function is improved now with creatinine of approximately 1.3. 3. Apparent history of asthma/bronchospasm; start low-dose Bystolic 2.5 mg daily; we could consider adding low-dose MILDRED inhibitor or ARB later. Her EF was a little below her previous 45% last week when echo showed EF 35-40%. She has chronic LBBB 4. Previously was on spironolactone 25 mg daily, but given her creatinine was up 3 last week would hold off on this. Assessment and plan 10/04/2012: 1. Given left-sided heart failure with chest x-ray suggesting pulmonary edema and very high BNP with history of cardiomyopathy (EF 35-40%), adding nitroglycerin infusion to decrease preload and blood pressure 2. Mild hyperkalemia noted with potassium 5.6 3. Leukocytosis, having received steroid therapy 4. Would add daily Lasix to treat volume overload and hyperkalemia Current Visit: Yes (2) Dehydration Status: Acute Current Visit: Yes (3) Chronic renal insufficiency Status: Chronic Current Visit: Yes Qualifiers: Chronic kidney disease stage: stage 2 (mild) Qualified Code(s): N18.2 - Chronic kidney disease, stage 2 (mild) (4) Hypertension Status: Chronic Current Visit: Yes Qualifiers: Hypertension type: essential hypertension Qualified Code(s): I10 - Essential (primary) hypertension (5) Nonischemic cardiomyopathy Status: Chronic Current Visit: Yes (6) COPD (chronic obstructive pulmonary disease) Status: Chronic Current Visit: Yes Qualifiers: COPD type: chronic bronchitis Chronic bronchitis type: simple Qualified Code(s): J41.0 - Simple chronic bronchitis (7) Diabetes mellitus Status: Chronic Current Visit: Yes (8) History of breast cancer Status: Chronic Current Visit: No (9) Status post placement of cardiac pacemaker Status: Chronic Current Visit: Yes (10) On mechanically assisted ventilation Status: Acute Current Visit: Yes Cardiology - PN: Subj Interval history: 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 Petty Ms. Oconnell is seen resting in bed in the intensive care unit. She is now on oxygen via mask. She denies any chest pain or shortness of breath. When I ask if she resumes a mass because she is having issues breathing she told me she was not. However record and nursing staff, she was in some respiratory distress this morning and Dr. Quiros was called and changes were made including oxygen to mask. Chest x-ray at 4 AM this morning showed progressive pulmonary edema/infiltration/atelectasis with small pleural effusion. She was given Lasix 40 IV this morning and will get 20 IV twice daily. Oxygen saturation is currently 100%. Currently this morning her blood pressure was in the 190s over 100s. She has been started on nitro infusion. Blood pressure is currently 165/ 86. 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 Her H&H has improved today to 9.9 and 31.5. BNP this morning was 1889. Creatinine slightly elevated at 1.4, potassium elevated at 5.5. Exam (Progress Note) - Constitutional Vitals: Period Temp Pulse Resp BP Sys/Quezada Pulse Ox Last 24 Hr 97.6 F-99.7 F 84-113 15-43 119-191/53-103 92-100 General appearance: over weight Exam: General appearance: No acute distress, morbidly obese - Head Head exam: Absent: abrasion, hematoma - Eye Eye exam: Absent: periorbital swelling, laceration to eyelids - Respiratory Respiratory exam: Present: Clear to auscultation, oxygen via mask. Absent: accessory muscle use - Cardiovascular Cardiovascular exam: Present: regular rate and rhythm. Absent: rubs - GI/Abdominal GI/Abdominal exam: Present: hypoactive bowel sounds, soft. Absent: distended - Neurological Exam Neurological exam: Present: Awake and alert - Psychiatric Psychiatric exam: Present: Normal affect, normal mood. - Skin Skin exam: Present: warm, dry - Head Head exam: Present: normal inspection, normocephalic, atraumatic - Respiratory Respiratory exam: Present: rales, rhonchi. Absent: stridor, wheezes - Cardiovascular Cardiovascular exam: Present: regular rate and rhythm. Absent: diastolic murmur , rubs - GI/Abdominal GI/Abdominal exam: Present: soft. Absent: tenderness - Extremities Exam Extremities exam: Present: other. Absent: edema Result/EKG - Labs CBC & BMP: 10/04/16 05:45 10/04/16 05:45 Lab Results: I have reviewed the past 24 hour labs Labs: Laboratory Results - last 24 hr 10/03/16 10/03/16 10/03/16 12:09 17:48 23:32 WBC RBC Hgb Hct MCV MCH MCHC RDW Plt Count MPV Neut % (Auto) Lymph % (Auto) [place] % (Auto) Eos % (Auto) Baso % (Auto) Neut # (Auto) Lymph # (Auto) [place] # (Auto) Eos # (Auto) Baso # (Auto) Total Counted Immature Gran % Nucleated RBC % Immature Gran # Segmented Neutrophils Lymphocytes Monocytes Nucleated RBCs # Platelet Estimate Hypochromasia ABG pH ABG pCO2 ABG pO2 ABG HCO3 ABG Total CO2 ABG O2 Saturation ABG Base Excess FiO2 Sodium Potassium Chloride Carbon Dioxide Anion Gap BUN Creatinine GFR Calculation BUN/Creatinine Ratio Glucose POC Glucose 313 H 388 H 267 H Calculated Osmolality Calcium Magnesium B-Natriuretic Peptide 10/04/16 10/04/16 10/04/16 04:48 05:25 05:40 WBC RBC Hgb Hct MCV MCH MCHC RDW Plt Count MPV Neut % (Auto) Lymph % (Auto) [place] % (Auto) Eos % (Auto) Baso % (Auto) Neut # (Auto) Lymph # (Auto) [place] # (Auto) Eos # (Auto) Baso # (Auto) Total Counted Immature Gran % Nucleated RBC % Immature Gran # Segmented Neutrophils Lymphocytes Monocytes Nucleated RBCs # Platelet Estimate Hypochromasia ABG pH 7.364 ABG pCO2 42.1 ABG pO2 62.8 L ABG HCO3 23.2 ABG Total CO2 22.0 L ABG O2 Saturation 91.3 L ABG Base Excess -1.3 FiO2 36.00 Sodium Potassium Chloride Carbon Dioxide Anion Gap BUN Creatinine GFR Calculation BUN/Creatinine Ratio Glucose POC Glucose 288 H Calculated Osmolality Calcium Magnesium B-Natriuretic Peptide 1889 H 10/04/16 10/04/16 05:45 05:45 WBC 36.6 H D RBC 3.51 L Hgb 9.9 L Hct 31.5 L MCV 89.7 MCH 28 MCHC 31.4 L RDW 15.8 Plt Count 566 H D MPV 11.9 Neut % (Auto) 87.9 H Lymph % (Auto) 4.7 L [place] % (Auto) 5.3 Eos % (Auto) 0.0 Baso % (Auto) 0.2 Neut # (Auto) 32.2 H Lymph # (Auto) 1.7 [place] # (Auto) 1.9 H Eos # (Auto) 0.0 Baso # (Auto) 0.1 Total Counted 100 Immature Gran % 1.9 Nucleated RBC % 0.0 Immature Gran # 0.69 Segmented Neutrophils 90 H Lymphocytes 5 L Monocytes 5 Nucleated RBCs # 0.00 Platelet Estimate Increased Hypochromasia 1+ ABG pH ABG pCO2 ABG pO2 ABG HCO3 ABG Total CO2 ABG O2 Saturation ABG Base Excess FiO2 Sodium 138 Potassium 5.5 H Chloride 105 Carbon Dioxide 26 Anion Gap 12.5 BUN 59 H Creatinine 1.40 H GFR Calculation 45 BUN/Creatinine Ratio 42.00 H Glucose 336 H POC Glucose Calculated Osmolality 304.7 H Calcium 9.3 Magnesium 3.1 H B-Natriuretic Peptide - Diagnostic Findings Procedure: Chest x-ray: report reviewed by me - EKG EKG results: interpreted by me EKG shows: sinus rhythm Nano Foley Randall Scott, MD, personally performed the services described in this documentation, ascribed by aPris Dover RN in my presence, and it is both accurate and complete .
--- NOTE | 2016-10-04 12:36 | Hospitalist Progress Note ---
Assessment and Plan (1) Acute respiratory failure Status: Acute Assessment and plan: The patient required mechanical ventilation due to aspiration. The patient is improved and now extubated. We will request speech therapy evaluation of her swallowing. The patient is on clear liquids for now. Current Visit: Yes Qualifiers: Respiratory failure complication: hypoxia and hypercapnia Qualified Code(s) : J96.01 - Acute respiratory failure with hypoxia; J96.02 - Acute respiratory failure with hypercapnia (2) COPD (chronic obstructive pulmonary disease) Status: Chronic Current Visit: Yes Qualifiers: COPD type: chronic bronchitis Chronic bronchitis type: simple Qualified Code(s): J41.0 - Simple chronic bronchitis (3) Nonischemic cardiomyopathy Status: Chronic Current Visit: Yes (4) Hypertension Status: Chronic Current Visit: Yes Qualifiers: Hypertension type: essential hypertension Qualified Code(s): I10 - Essential (primary) hypertension Hospitalist: Subjective Interval history: This is an 81-year-old lady who was admitted to intensive care unit due to respiratory failure which was associated with aspiration and urinary tract infection. The patient is now extubated and states that she feels "pretty good ". The patient is tolerating clear liquids. We continue on IV antibiotics. If blood pressure remains optimal she can go to the floor on Monday morning. The patient has had episodes of aspiration. Exam - Constitutional Vitals: Period Temp Pulse Resp BP Sys/Quezada Pulse Ox Last 24 Hr 97.6 F-99.5 F 84-113 15-43 119-191/57-108 91-100 Exam: Constitutional System: Mild distress. No tremulousness. The patient is tolerating some clear liquids but has coughing afterwards. Head: Normocephalic, atraumatic. Ears, Nose and Throat System: No evidence of Otitis or Mastoiditis. No epistaxis or discharge Eyes System: Pupils equal, round, and reactive. Extraocular muscles intact. Neck: Supple, without adenopathy, No jugular venous distention. No thyromegaly , neck mass, or prior surgery apparent. Respiratory System: Chest clear to auscultation. Upper airway congestion Cardiovascular System: Heart with regular rate and rhythm. No murmur. GI System: Abdomen soft, nontender. Normo active bowel sounds present. Musculoskeletal System: limbs with no pedal edema. Full distal pulses. Neurological System: No discernable sensory deficit. No aphasia Psychiatric System: Conversation is rational Results - Labs CBC & BMP: 10/04/16 05:45 10/04/16 05:45 Lab Results: I have reviewed the past 24 hour labs
--- NOTE | 2016-10-04 13:53 | General Surgery Progress Note ---
Assessment and Plan (1) SBO (small bowel obstruction) Status: Resolved Assessment and plan: Appears to be resolved. Patient had a bowel movement yesterday. There is concerned about possible aspiration in her respiratory status with advancing her diet. From a surgical/GI perspective, she can advance her diet gradually as tolerated. Current Visit: No Subjective Patient reports: Present: other (Bowel movement is documented yesterday. Patient is currently receiving breathing treatment. Sheexperienced respiratory compromise early this morning and is requiring intervention. She has not attempted a diet this morning.) Exam - Constitutional Vitals: Period Temp Pulse Resp BP Sys/Quezada Pulse Ox Last 24 Hr 97.6 F-99.5 F 84-113 15-43 113-191/56-108 91-100 Results - Labs CBC & BMP: 10/04/16 05:45 10/04/16 05:45
--- NOTE | 2016-10-04 15:50 | Infectious Disease Progress ---
Assessment and Plan (1) Pneumonia Status: Acute Assessment and plan: Probably from aspiration. MRSA and E. coli cultured. Patient clinically better now off the vent. Her leukocytosis has acutely worsened today however she has not had any fever. Cause may be stress response but the effect of steroids. Recommendations: Continue cefazolin and vancomycin for at least another day Current Visit: Yes (2) COPD (chronic obstructive pulmonary disease) Status: Chronic Current Visit: Yes Qualifiers: COPD type: chronic bronchitis Chronic bronchitis type: simple Qualified Code(s): J41.0 - Simple chronic bronchitis (3) Chronic renal insufficiency Status: Chronic Assessment and plan: Acute on chronic renal insufficiency. Renal function will have to be monitored closely on the vancomycin. Renal function slowly improving. Current Visit: Yes Qualifiers: Chronic kidney disease stage: stage 2 (mild) Qualified Code(s): N18.2 - Chronic kidney disease, stage 2 (mild) (4) Diabetes mellitus Status: Chronic Current Visit: Yes (5) Hypertension Status: Chronic Current Visit: Yes Qualifiers: Hypertension type: essential hypertension Qualified Code(s): I10 - Essential (primary) hypertension Infectious Disease - PN: Subj Interval history: Patient remains off vent however she has some respiratory distress when I saw her this morning. she has been congested. coughing a lot, and required increased O2 supplimentation. No fever. She actually told me that she felt okay this morning Infectious Disease Exam (PN) - Constitutional Vitals: Temp Pulse Resp BP Pulse Ox 98.8 F 101 H 29 H 151/68 100 10/04/16 12:00 10/04/16 14:00 10/04/16 14:00 10/04/16 14:30 10/04/16 14:00 General appearance: over weight Exam: General appearance: Was alert but in mild respiratory distress, sounded very congested wet cough intermittently - Eye Eye exam: Present: EOMI. no icterus Pupils: Present: VALENTINA - ENT ENT exam: No oral exudates - Respiratory Respiratory exam: Harsh breath sounds, bilateral transmitted sounds - Cardiovascular Cardiovascular exam: regular rate and rhythm, no murmurs - GI/Abdominal GI/Abdominal exam: normal bowel sounds, soft, non-tender, no organomegaly or mass - Extremities Exam Extremities exam: no edema - Skin Skin exam: no rash Results - Labs CBC & BMP: 10/04/16 05:45 10/04/16 05:45 Lab Results: I have reviewed the past 24 hour labs
[2016-10-04] MEDS: FAT EMULSION 20% 250 ML IV SCH (16:05)
[2016-10-04] MEDS: ENOXAPARIN 30 MG/0.3 ML SYRINGE SUBCUT SCH (16:11)
[2016-10-04] MEDS: NEBIVOLOL 5 MG TABLET PO SCH (16:11)
[2016-10-04] MEDS: FUROSEMIDE 20 MG/2 ML VIAL IV SCH (16:12)
[2016-10-04] MEDS: INSULIN REGULAR IV SCH (18:31)
[2016-10-04] MEDS: [UNRECOGNIZED DRUG - OTHER] IV SCH (18:31)
[2016-10-04] MEDS: PHENYLEPHRINE DRIP 40 MG/250 ML PREMIX IV SCH (22:12)
[2016-10-05] MEDS: ALBUTEROL/IPRATROPIUM 3 ML NEB RESP TX SCH ×5 (03:38→19:47)
[2016-10-05 03:42] LABS: ABG Base Excess -0.8 MMOL/L (-2.5-2.5); ABG HCO3 24.1 MMOL/L (20-26); ABG Oxygen Saturation 97.9 % (95-100); ABG PCO2 40.8 MM HG (35-48); ABG PH 7.389 (7.35-7.45); ABG TCO2 25.3 MMOL/L (23-27)
[2016-10-05] MEDS: ALUMINUM/MAGNES/SIMETH MAX STR 30 ML UDCUP PER TUBE SCH ×4 (04:14→20:42)
--- NOTE | 2016-10-05 06:23 | XRay Report ---
Portable chest Date: 10/05/2016 Clinical history: Shortness of breath Comparison: 10/04/2016 Technique: Portable AP sitting chest Findings: Stable cardiomegaly and right subclavian ventricular permanent pacemaker. Right venous access catheter is stable in position. Minimal reduction in the diffuse parenchymal findings with smaller pleural effusions. Stable mediastinum and osseous structures. Impression: Improved pulmonary edema with smaller pleural effusions. Stable right subclavian ventricular permanent pacemaker. PROCEDURE INTERPRETED AT [facility] DEPARTMENT OF RADIOLOGY Final Report Signed by: Dr. Zaira Stovall
[2016-10-05] MEDS: INSULIN LISPRO 100 UNIT/ML SUBCUT SCH ×4 (07:03→23:39)
[2016-10-05] MEDS: methylPREDNISolone SOD SUC 40 MG/1 ML VIAL IV SCH ×2 (07:04→18:28)
[2016-10-05] MEDS: LEVOTHYROXINE 25 MCG TABLET PO SCH (07:04)
[2016-10-05 07:58] LABS: Calcium 9.3 MG/DL (8.5-10.1); Magnesium 2.7 MG/DL (1.8-2.4); Osmolality,Calculated 303.7 MOS/KG (273-304); Potassium 5.2 MMOL/L (3.5-5.1)
--- NOTE | 2016-10-05 08:46 | Hospitalist Progress Note ---
Assessment and Plan (1) COPD (chronic obstructive pulmonary disease) Status: Chronic Current Visit: Yes Qualifiers: COPD type: chronic bronchitis Chronic bronchitis type: simple Qualified Code(s): J41.0 - Simple chronic bronchitis (2) Renal insufficiency Status: Acute Current Visit: No (3) Small bowel obstruction Status: Acute Current Visit: No (4) Nonischemic cardiomyopathy Status: Chronic Current Visit: Yes (5) Hypertension Status: Chronic Current Visit: Yes Qualifiers: Hypertension type: essential hypertension Qualified Code(s): I10 - Essential (primary) hypertension (6) Acute respiratory failure Status: Acute Assessment and plan: Patient was started on nitroglycerin infusion. This will keep her in the ICU unit. We are giving her Lasix every 12 hours. Her BNP today is 755. Potassium is 5.2. Recheck labs in the morning. She is tolerating clear liquids but her intake is marginal. She is still on TPN for now. If she comes off the nitro infusion she could be able to be transferred upstairs tomorrow. Current Visit: Yes Qualifiers: Respiratory failure complication: hypoxia and hypercapnia Qualified Code(s) : J96.01 - Acute respiratory failure with hypoxia; J96.02 - Acute respiratory failure with hypercapnia Hospitalist: Subjective Interval history: Currently we are titrating off her nitro infusion but watching her blood pressure very closely. Patient seems to be stable in the unit Exam - Constitutional Vitals: Period Temp Pulse Resp BP Sys/Quezada Pulse Ox Last 24 Hr 97.3 F-100.5 F 81-106 18-39 96-180/49-120 91-100 General appearance: over weight - Head Head exam: Present: normal inspection - Eye Pupils: Present: VALENTINA - ENT ENT exam: Present: normal exam - Neck Neck exam: Present: normal inspection - Respiratory Respiratory exam: Present: clear to auscultation bilaterally (Currently but poor respiratory effort) - Cardiovascular Cardiovascular exam: Present: regular rate and rhythm - GI/Abdominal GI/Abdominal exam: Present: hypoactive bowel sounds - Extremities Exam Extremities exam: Present: normal inspection (SCDs in place) - Back Exam Back exam: Present: normal inspection - Neurological Exam Neurological exam: Present: other (Patient will follow some commands but is not real interactive) - Skin Skin exam: Present: normal color Results - Labs CBC & BMP: 10/04/16 05:45 10/05/16 07:25
[2016-10-05] MEDS: FUROSEMIDE 20 MG/2 ML VIAL IV SCH ×2 (09:06→16:00)
[2016-10-05] MEDS: NEBIVOLOL 5 MG TABLET PO SCH (09:07)
[2016-10-05] MEDS: INSULIN GLARGINE 100 UNIT/ML SUBCUT SCH (09:07)
[2016-10-05] MEDS: LISINOPRIL 2.5 MG TABLET PO SCH ×2 (09:07→21:58)
[2016-10-05] MEDS: DESITIN 4OZ/NYSTATIN 15 GRAM MIXTURE PASTE TOP SCH ×2 (09:09→21:58)
[2016-10-05] MEDS: MUPIROCIN 2% OINT 22 GM TUBE TOP SCH ×2 (09:09→21:58)
--- NOTE | 2016-10-05 10:03 | Pulmonology Progress Note ---
Pulmonary - PN: Subj Interval history: This 81-year-old black female whom I saw in pulmonary consultation on 09/25/2016. I was asked to manage her pulmonary problems and her mechanical ventilation. Patient originally been admitted with small bowel obstruction and septic shock. She also had acute kidney injury and she was dehydrated and she had mild elevation of her troponins. She had acute renal failure with hypotension and her lactic acids were elevated 6.6 and creatinine was 3.6. Dr. Henrry Moore saw in surgery consultation she was treated this conservatively. From pulmonary standpoint she became exhausted on the night of 09/24/2016 and reached a point that she could not continue to breathe and she required intubation mechanical ventilation. My impressions are. 1. Right lower lung, left upper lung and left lower lung pneumonia with atelectasis. This patient's had small bowel obstruction with nausea and vomiting. I suspect we have aspiration with bacterial superinfection. 2. Small bowel obstruction. Patient's had no bowel movements but she is developing bowel sounds. 3. Insulin-dependent diabetes mellitus 4. History of high blood pressure 5. COPD/asthma 6. Cardiac pacemaker 7. Breast cancer. 2014 8. Obesity 9. Former smoker 10. Acute on chronic renal failure. 09/26/2016. Earlier today this patient was evaluated with fiberoptic bronchoscopy . She had retained secretions bilaterally. She had evidence of mild gastric acid injury which is most prominent in the left upper lung and left lower lung and right lower lung. Multiple specimens were sent for cultures. She tolerated procedure well. Pre-bronchoscopy chest x-ray showed a fairly dense left lower lung infiltrate. There are scattered infiltrates in the right upper and right lower lung. There are no positive cultures. Sputum Gram stain from showed many gram-positive cocci. On mechanical ventilation with FiO2 of 50% ABGs show pH 7.395, PCO2 37, PO2 157 and bicarbonate 23. Electrolytes are close to normal. Creatinine is 2.10 with a BUN of 74. White count is elevated at 26,000 with 79 segs 6 lymphs and 10 monos. H&H is dropped to 9.9/ 31.0 and platelets are 224,000. Glucoses are elevated. Doppler venogram showed no evidence of deep venous thrombophlebitis. This patient's on stage to the weaning protocol. She was tried on a T-tube for short time and did not terrible. Will continue present protocols and make sure she is also on physical therapy protocol. 09/27/2016. Today's chest x-ray shows improvement. There is better variation. Patient has cardiomegaly. Her sputum is growing E. coli and methicillin- resistant staph aureus. Gram-positive cocci gram-negative rods are growing from bronchoscopy specimens taken 2016. This patient originally presented with small bowel obstruction was covered with GI medicines. The present time I have left her on vancomycin. I have stopped her Levaquin and I have stopped her Cleocin. I have added Fortaz. I have consulted infectious disease to help with management. White blood cell count remains elevated at 28,900 with 83 segs. H&H is 9.2/28.1. Platelets of 203,000. Creatinine is 2.00 with a BUN of 76. Electrolytes are normal. C-reactive protein is elevated at 9.98. Vancomycin trough level is 4.8. This is being managed by pharmacology. ABGs on FiO2 of 40% and mechanical ventilation showed pH of 7.445, PCO2 of 33, PO2 of 136 and bicarb of 22.2. The patient still in stage III to weaning protocol. Physical therapy protocol as previously been ordered. 09/28/2016. I appreciate Dr. Tirado's infectious disease consultation. Today's chest x-ray shows some mild alveolar infiltrate in the right lower lung the left upper lung. Left lower lung is not well seen. Patient's sputum and bronchoscopy specimens are growing E. coli and methicillin-resistant staph aureus. She is now been advanced to stage V the weaning protocol. ABGs are stable. White count remains elevated 29,400. H&H is stable at 10.0/30.6 and platelets are 259,000. Electrolytes are normal. Creatinine is dropped to 1.80 with a BUN of 75. 09/29/2016. Today's chest x-ray shows cardiomegaly. There are increased interstitial markings in the medial basal segment of the right lower lung and also in the left perihilar area. These are resolving infiltrates. There is no congestive heart failure. Patient's on stage V the weaning protocol. ABGs on mechanical ventilation FiO2 40% shows a pH of 7.48, PCO2 of 30.6, PO2 of 152 and a bicarb of 24.6. Electrolytes are normal. Creatinine is 1.6 with a BUN of 66 white count remains elevated 26,000 with 82% segs H&H is 9.9/29.9 and platelets of 293,000. Bronchoscopy specimens grew E. coli and methicillin- resistant staph aureus which would be in treated by infectious disease 09/30/2016. This is a 81-year-old black female who was originally admitted with small bowel obstruction. She was treated conservatively in this included an NG tube with suction. Later on she became exhausted and required intubation mechanical ventilation. She has some element of aspiration and she had a lot of retained secretions. Bronchoscopy specimens have grown E. coli and methicillin-resistant staph aureus. Infectious diseases on the case. Today's chest x-ray shows cardiomegaly there is a residual right lower lung and left perihilar infiltrate. This is alveolar with some increased interstitial markings. Patient's on stage V of the weaning protocol. ABGs on mechanical ventilation and FiO2 40% shows a pH 7.44, PCO2 36, PO2 143 and a bicarb of 25. White count remains elevated 22,900. H&H is stable at 9.8/29.6. Platelets 338, 000. Creatinine is gradually fallen to 1.50 with a BUN of 51. We will continue the weaning protocol on this patient. We need careful attention to removal of pulmonary secretions. It is possible that she could be extubated in the next 3 or 4 days. She is recently been started on NG feedings. She had 270 cc of residual feedings this morning and I have asked that we change her back to IV hyperalimentation. She will need adequate nutrition in order to come off the ventilator. 10/03/2016. This patient was extubated 10/02/2016 and she is done well since then. Her chest x-ray is better. Previously noted bilateral infiltrates are less prominent. ABGs on FiO2 32% show a pH of 7.408. PCO2 40. PO2 of 88.7 and a bicarb of 25. White blood cell count remains elevated 26,000. H&H is 8.3 /25.8. Platelets are 411,000. Electrolytes are normal. Creatinine is 1.30 with a BUN of 49. Vancomycin trough level is 18.1. This is being managed by pharmacology. This patient continues on IV hyperalimentation. I think we should continue this and we can retry p.o. intake but only a few days ago she had 275 cc of gastric residual. 10/04/2016. At around 430 or 5:00 this morning the patient developed increased respiratory distress. She was said to have stridor in her tracheal and large airway area. I was called. She was treated with ventilation therapy and since then I have added Acapella low and this is helped the patient mobilize secretions. Her chest x-ray showed evidence of pulmonary edema and she was given 40 of Lasix IV push. Since that time she has had at least 400 cc of urine output and her chest x-ray looks a lot better. She still has some bilateral pleural effusions involving the major fissures. On her chest x-ray there is dilatation of her stomach so I think we have to watch closely for reflux and aspiration in this patient. She is on Reglan I do not see any neurological side effects related to this. Patient's bronchial lavage has grown E. coli and methicillin-resistant staph aureus which is being treated by infectious disease. Patient's on cephalosporins. She is allergic to penicillin. I do not see any evidence of reaction from that standpoint. ABGs on FiO2 36% shows a pH 7.36, PCO2 42, PO2 of 63 and a bicarb of 23. White blood cell count is increased to 36,600. Platelets of 566,000 and H&H is 9.9/ 31.5. Potassium is 5.5. Creatinine is 1.4 and BUN is 59. Natruretic peptide is elevated at 1889. I started the patient on Lasix 20 IV push twice a day. Will need to watch her chest x-ray, BNP and BMP. Continue inhalation therapy. 10/05/2016. Today's x-ray looks better. Patient has cardiomegaly and mild central venous engorgement. Interstitial markings are closer to normal. There is still has the appearance of mild compensated congestive heart failure. Natruretic peptide is dropped from 1889 2 755. Creatinine is increased from 1.4 -1.6 with a BUN of 76. FiO2 has been increased to 60% and blood gases show a pH of 7.39, PCO2 of 40.8, PO2 of 111 and a bicarb of 24. This patient's going to require diuresis for congestive heart failure. Creatinine has increased with a small dose of Lasix. I am going to stop her lisinopril. I have consulted Dr. Stefan Ellis to see her in nephrology consultation and I have ordered ultrasounds of her kidneys. Patient has very coarse congestion in the trachea and the large airways. I am very concerned about reflux with aspiration and his staff is watching closely for this. Labs been reviewed. Medicines have been reviewed. Physical exam. General. No apparent distress. Psychiatric. Patient just looks at me but will not answer any questions. Vital signs. See below Neurologic. Patient sedated but she appears to move all fours. Face is symmetrical. Tongue is very large Neck is symmetrical no meningismus Chest reveals prominent large airway congestion Heart no gallop Abdomen rare bowel sounds Lower extremities. Chronic venous stasis. No evidence of deep venous thrombophlebitis. Lymphatics. No submandibular cervical supraclavicular adenopathy. Skin the face and hands show no cancerous infectious lesions. No other areas of skin were examined The remainder of the physical exam is negative Plan. 09/25/2006 1. Agree with antibiotics. Levaquin and Flagyl. Vancomycin 2. Fiberoptic bronchoscopy 3. Patient's on pressor agents to support of breath blood pressure at the present time 4. Proton pump inhibitor protocol 5. Agree with deep venous thrombophlebitis prevention protocol 6. Mechanical ventilation weaning protocol 7. Mechanical ventilation physical therapy protocol 8. Daily chest x-ray ABGs and lab 9. Doppler venograms of lower extremity 10. See orders. 11. Sputum for Gram stain culture and sensitivity 09/26/2016. 1. See today's note above. 2. Check bronchoscopy specimen 3. All applicable protocols Home Medications 09/27/2016. 1. Sputum specimens are positive for E. coli and methicillin-resistant staph aureus. See today's note above about antibiotic changes made. Infectious disease has been consulted. 2. Continue weaning protocol 3. Continue daily ABGs chest x-ray and lab. 09/28/2016. 1. See today's note above. 2. Continue daily chest x-ray, ABGs and lab. 3. Stage V weaning protocol 4. Physical therapy protocol 09/29/2016. 1. See today's note above. 2. Daily chest x-ray, ABGs and lab. 3. Weaning protocol 4. Physical therapy protocol 5. Tongue is very large I hope this does not become a problem with weaning. The patient is not on MILDRED inhibitors or carbs. I do not see any skin rash. 09/30/2016. 1. See today's note above. 2. Daily chest x-ray, ABGs and lab 3. Stage V weaning protocol 4. Physical therapy protocol. 5. Keep an eye on the patient's tongue. He is unusually large. 10/04/2016. 1. See today's note above 2. Start Lasix 20 IV push every 12 hours. 3. Daily chest x-ray ABGs BMP and BNP. 10/05/2016. 1. Continue Lasix. 2. Stop lisinopril 3. Ultrasound of the kidneys 4. Renal consultation 5. Daily chest x-ray, ABGs, BNP, BMP. Exam (Progress Note) - Constitutional Vitals: Period Temp Pulse Resp BP Sys/Quezada Pulse Ox Last 24 Hr 97.3 F-100.5 F 77-106 18-39 96-165/49-120 91-100 Results - Labs CBC & BMP: 10/04/16 05:45 10/05/16 07:25
--- NOTE | 2016-10-05 11:09 | Ultrasound Report ---
Exam: US renal Bilateral Date: 10/05/2016 10:01 AM Comparison: None Indication: Renal failure Technique:[Multiple transabdominal real-time scans were obtained of the kidneys. Color-flow scans were obtained. Ultrasound images were captured and stored.] Findings: Right kidney measures 87 x 37 x 39 mm. Left kidney measures 89 x 40 x 33 mm. Color flow documented in the kidneys with no mass or hydronephrosis. Impression: Generalized cortical loss in the kidneys with no mass or hydronephrosis. Inhomogeneous echogenicity which can be seen with possible medical renal disease. PROCEDURE INTERPRETED AT [facility] DEPARTMENT OF RADIOLOGY Final Report Signed by: Dr. Zaira Stovall
[2016-10-05] MEDS: VANCOMYCIN INJ 1,000 MG in SODIUM CHLORIDE 0.9% 250 ML IV SCH ×2 (11:28→22:00)
[2016-10-05] MEDS: NITROGLYCERIN DRIP 50 MG/250 ML BOTTLE IV SCH (11:28)
--- NOTE | 2016-10-05 13:21 | Infectious Disease Progress ---
Assessment and Plan (1) Pneumonia Status: Acute Assessment and plan: Probably from aspiration. MRSA and E. coli cultured. Patient clinically better now off the vent. Her leukocytosis has acutely worsened today however she has not had any fever. Cause may be stress response but the effect of steroids. Recommendations: Continue cefazolin and vancomycin. Was originally going to stop them today but since that leukocytosis got significantly worse yesterday and she still having quite a bit of secretions will keep them going a bit longer. Current Visit: Yes (2) COPD (chronic obstructive pulmonary disease) Status: Chronic Current Visit: Yes Qualifiers: COPD type: chronic bronchitis Chronic bronchitis type: simple Qualified Code(s): J41.0 - Simple chronic bronchitis (3) Chronic renal insufficiency Status: Chronic Assessment and plan: Acute on chronic renal insufficiency. Creatinine up a bit today and vancomycin trough supratherapeutic. Adjust vancomycin dose and monitor renal function closely. Current Visit: Yes Qualifiers: Chronic kidney disease stage: stage 2 (mild) Qualified Code(s): N18.2 - Chronic kidney disease, stage 2 (mild) (4) Diabetes mellitus Status: Chronic Current Visit: Yes (5) Hypertension Status: Chronic Current Visit: Yes Qualifiers: Hypertension type: essential hypertension Qualified Code(s): I10 - Essential (primary) hypertension Infectious Disease - PN: Subj Interval history: Patient doing fair, remains off the vent but still having a lot of secretions. Dr. Slade feels she may be aspirating. She had low-grade fever yesterday afternoon to 100.5. Infectious Disease Exam (PN) - Constitutional Vitals: Temp Pulse Resp BP Pulse Ox 98.2 F 75 22 112/55 93 L 10/05/16 13:00 10/05/16 13:00 10/05/16 13:00 10/05/16 13:00 10/05/16 13:00 General appearance: over weight Exam: General appearance: Drowsy but arousable, breathing a bit labored when I saw her this morning - Eye Eye exam: Present: EOMI. no icterus Pupils: Present: VALENTINA - Respiratory Respiratory exam: Very harsh breath sounds - Cardiovascular Cardiovascular exam: regular rate and rhythm, no murmurs - GI/Abdominal GI/Abdominal exam: normal bowel sounds, soft, non-tender, no organomegaly or mass - Extremities Exam Extremities exam: no edema - Skin Skin exam: no rash Results - Labs CBC & BMP: 10/04/16 05:45 10/05/16 07:25 Lab Results: I have reviewed the past 24 hour labs - Diagnostic Findings Procedure: Chest x-ray: image reviewed by me, report reviewed by me (His opacities bilaterally with the left base)
--- NOTE | 2016-10-05 14:53 | Cardiology Progress Note ---
Stanislaw Foley April, RN, am scribing for, and in the presence of, Gato Mcgill MD 14:53. Assessment and Plan (1) Elevated troponin Status: Acute Assessment and plan: Initial assessment and plan 10/03/2016: 1. 81-year-old female with history of mild nonischemic cardiomyopathy followed by Dr. Petty with history of small bowel obstruction with dehydration apparently significant GERD, and history of remote pacemaker placement weaned off ventilator 2. Last week she had trivial troponin elevation of 0.05, 0.06 which are really not elevated particularly given her renal dysfunction of the time. Renal function is improved now with creatinine of approximately 1.3. 3. Apparent history of asthma/bronchospasm; start low-dose Bystolic 2.5 mg daily; we could consider adding low-dose MILDRED inhibitor or ARB later. Her EF was a little below her previous 45% last week when echo showed EF 35-40%. She has chronic LBBB 4. Previously was on spironolactone 25 mg daily, but given her creatinine was up 3 last week would hold off on this. Assessment and plan 10/04/2016: 1. Given left-sided heart failure with chest x-ray suggesting pulmonary edema and very high BNP with history of cardiomyopathy (EF 35-40%), adding nitroglycerin infusion to decrease preload and blood pressure 2. Mild hyperkalemia noted with potassium 5.6 3. Leukocytosis, having received steroid therapy 4. Would add daily Lasix to treat volume overload and hyperkalemia Assessment and plan 10/05/2016: 1. Strangely Ms. Oconnell's hypertension is resolved and she actually had some hypotension this morning, which is improved after stopping IV nitroglycerin. 2. No need to add nitrates and hydralazine at this point, given hypertension 3. Still some tachypnea postextubation 4. We will follow with you Current Visit: Yes (2) Dehydration Status: Acute Current Visit: Yes (3) Chronic renal insufficiency Status: Chronic Current Visit: Yes Qualifiers: Chronic kidney disease stage: stage 2 (mild) Qualified Code(s): N18.2 - Chronic kidney disease, stage 2 (mild) (4) Hypertension Status: Chronic Current Visit: Yes Qualifiers: Hypertension type: essential hypertension Qualified Code(s): I10 - Essential (primary) hypertension (5) Nonischemic cardiomyopathy Status: Chronic Current Visit: Yes (6) COPD (chronic obstructive pulmonary disease) Status: Chronic Current Visit: Yes Qualifiers: COPD type: chronic bronchitis Chronic bronchitis type: simple Qualified Code(s): J41.0 - Simple chronic bronchitis (7) Diabetes mellitus Status: Chronic Current Visit: Yes (8) History of breast cancer Status: Chronic Current Visit: No (9) Status post placement of cardiac pacemaker Status: Chronic Current Visit: Yes (10) On mechanically assisted ventilation Status: Acute Current Visit: Yes Cardiology - PN: Subj Interval history: Cheese Weigher: Dr. Petty Ms. Oconnell is seen resting in bed in the intensive care unit. She is awake and alert but will not answer any of my questions. Oxygen use via mask, oxygen saturation is currently 100%. logistic specialist currently shows sinus rhythm with heart rates in the 80s. Blood pressures currently 108/55 with nitro infusing. BNP this morning was 755. Chest x-ray this morning showed improvement. Creatinine elevated at 1.6, potassium elevated at 5.2. Exam (Progress Note) - Constitutional Vitals: Period Temp Pulse Resp BP Sys/Quezada Pulse Ox Last 24 Hr 97.3 F-100.5 F 81-106 18-39 96-180/49-120 91-100 General appearance: mild distress, over weight Exam: General appearance: No acute distress, morbidly obese - Head Head exam: Absent: abrasion, hematoma - Eye Eye exam: Absent: periorbital swelling, laceration to eyelids - Respiratory Respiratory exam: Present: Clear to auscultation, oxygen via mask. Absent: accessory muscle use - Cardiovascular Cardiovascular exam: Present: regular rate and rhythm. Absent: rubs - GI/Abdominal GI/Abdominal exam: Present: hypoactive bowel sounds, soft. Absent: distended - Neurological Exam Neurological exam: Present: Awake and alert, but will not respond to questions - Psychiatric Psychiatric exam: Present: Normal affect, normal mood. - Skin Skin exam: Present: warm, dry - Head Head exam: Present: normal inspection, normocephalic, atraumatic - Neck Neck exam: Present: normal inspection - Respiratory Respiratory exam: Present: rhonchi. Absent: wheezes - Cardiovascular Cardiovascular exam: Present: regular rate and rhythm. Absent: diastolic murmur - GI/Abdominal GI/Abdominal exam: Present: soft. Absent: tenderness - Extremities Exam Extremities exam: Absent: edema Result/EKG - Labs CBC & BMP: 10/04/16 05:45 10/05/16 07:25 Lab Results: I have reviewed the past 24 hour labs Labs: Laboratory Results - last 24 hr 10/04/16 10/04/16 10/04/16 11:27 17:37 23:55 ABG pH ABG pCO2 ABG pO2 ABG HCO3 ABG Total CO2 ABG O2 Saturation ABG Base Excess FiO2 Sodium Potassium Chloride Carbon Dioxide Anion Gap BUN Creatinine GFR Calculation BUN/Creatinine Ratio Glucose POC Glucose 341 H 389 H 301 H Calculated Osmolality Calcium Magnesium B-Natriuretic Peptide 10/05/16 10/05/16 10/05/16 03:26 06:30 07:25 ABG pH 7.389 ABG pCO2 40.8 ABG pO2 111.0 H ABG HCO3 24.1 ABG Total CO2 25.3 ABG O2 Saturation 97.9 ABG Base Excess -0.8 FiO2 60.00 Sodium Potassium Chloride Carbon Dioxide Anion Gap BUN Creatinine GFR Calculation BUN/Creatinine Ratio Glucose POC Glucose 182 H Calculated Osmolality Calcium Magnesium B-Natriuretic Peptide 755 H 10/05/16 07:25 ABG pH ABG pCO2 ABG pO2 ABG HCO3 ABG Total CO2 ABG O2 Saturation ABG Base Excess FiO2 Sodium 138 Potassium 5.2 H Chloride 106 Carbon Dioxide 25 Anion Gap 12.2 BUN 76 H Creatinine 1.60 H GFR Calculation 39 BUN/Creatinine Ratio 47.00 H Glucose 211 H POC Glucose Calculated Osmolality 303.7 Calcium 9.3 Magnesium 2.7 H B-Natriuretic Peptide - Diagnostic Findings Procedure: Chest x-ray: report reviewed by me - EKG EKG results: interpreted by me EKG shows: sinus rhythm Nano Foley Randall Scott, MD, personally performed the services described in this documentation, ascribed by Paris Dover RN in my presence, and it is both accurate and complete [id number] .
[2016-10-05] MEDS: FAT EMULSION 20% 250 ML IV SCH (16:01)
[2016-10-05] MEDS: ENOXAPARIN 40 MG/0.4 ML SYRINGE SUBCUT SCH (16:01)
[2016-10-05] MEDS: [UNRECOGNIZED DRUG - OTHER] IV SCH (16:03)
[2016-10-05] MEDS: TRACE ELEMENTS IV SCH (16:03)
[2016-10-05] MEDS: MULTIVITAMIN IV SCH (16:03)
[2016-10-05] MEDS: INSULIN REGULAR IV SCH (16:03)
--- NOTE | 2016-10-05 16:39 | Nephrology Consult Note ---
History of Present Illness Chief complaint: Acute on chronic renal failure History of present illness: Ms. Oconnell is a 81 year old female who has been quite ill for approximately 2 weeks. She has had varying renal function and spent some time on a ventilator after presenting with the small bowel obstruction. She is currently receiving IV hyperalimentation and his been weaned from the ventilator. She being treated for pneumonia but is generally very weak at age 81 with this significant medical illness ongoing. She is requiring vancomycin therapy and has grown MRSA from sputum. Creatinine today is 1.6 BUN 75. She had a creatinine of 3-1/2 earlier in his hospital stay but also as low as 1.3. She is currently receiving some low-dose Lasix and has been receiving lisinopril but that was stopped today. She is receiving vancomycin her level was above therapeutic recently and that is being dosed by pharmacy and obviously will need to be decreased. On exam she is arousable and able to acknowledge the examiner but is obtunded and weak. Chest is clear respirations are febrile. Heart without rub or gallop. Abdomen nontender. Extremities no edema. Chest x-ray reveals no gross volume overload. Renal ultrasound shows smallish kidneys without evidence of obstruction. Urine output has been good. Impression acute superimposed on chronic renal failure. This is a multi-factorial illness and I agree with holding the MILDRED inhibitor and we are going to have to watch her volume status which is very difficult to determine in her. [place] for recovery from this multisystem illness is not good. As mentioned she will need dose adjustment of the vancomycin and I agree with stopping the MILDRED inhibitor. Will follow with you thank you Home Medications Medication Instructions Recorded Confirmed Type Allopurinol [Zyloprim] 100 mg PO DAILY 02/05/16 09/20/16 History Aspirin EC Tab 81 mg PO DAILY 02/05/16 09/20/16 History Furosemide Tab [Lasix Tab] 40 mg PO DAILY PRN 02/05/16 09/20/16 History Insulin NPH Human Isophane 10 unit SUBCUT BID 02/05/16 09/20/16 History [NovoLIN N] Letrozole [Femara] 2.5 mg PO DAILY 02/05/16 09/20/16 History Meloxicam [Mobic] 15 mg PO DAILY 02/05/16 09/20/16 History Montelukast Tab [Singulair Tab] 10 mg PO BEDTIME 02/05/16 09/20/16 History Spironolactone [Aldactone] 25 mg PO DAILY 02/05/16 09/20/16 History Thyroid [[place] Thyroid] 30 mg PO DAILY 02/05/16 09/20/16 History Tiotropium Inhalation [Spiriva 18 mcg INH DAILY 02/05/16 09/20/16 History Handihaler] HYDROcodone/ACETAMIN 10-325 [[place] 1 tablet PO Q6H PRN #20 tablet 02/10/1609/20 Rx 10-325] Albuterol Inhaler [Proventil 2 puff INH Q4H PRN 07/27/16 09/20/16 History Inhaler] Linaclotide [Linzess] 145 mcg PO AC BREAKFAST 07/27/16 09/20/16 History Albuterol Sulfate [Proair HFA] 2 puff INH Q4H PRN 09/20/16 09/20/16 History Bisacodyl Tab [Dulcolax Tab] 10 mg PO DAILY 09/20/16 09/20/16 History Metoclopramide Tab [Reglan Tab] 5 mg PO BIDAC 09/20/16 09/20/16 History Allergies Allergy/AdvReac Type Severity Reaction Status Date / Time Penicillins Allergy ANAPHYLAXIS Verified 09/20/16 11:00 Medical,Surgical,& Family Hx - Medical History Cardio: History of: CHF, Hypertension, Pacemaker Endocrine: History of: Diabetes Mellitus (IDDM), Diabetes Mellitus (NIDDM), Thyroid Disorder Respiratory: History of: Asthma, COPD Gastrointestinal: History of: Bowel Obstruction Musculoskeletal: History of: Musculoskeletal Problems (right knee arthritis) Reproductive: History of: Breast Cancer (2014) Other: History of: Cancer - Surgical History Abdominal Surgeries: Surgical HX of: Abdominal Surgery (bowel obstruction surgery), Hernia Repair - Family History Family History: Reports;: Family Diabetes (brothers and sisters) - Social History Smoking Status: Former smoker (patient reports she last smoked approximately 2 months ago) Frequency of Alcohol Use: None Type of Drug Use: None Exam - Vital Signs Vital signs: Period Temp Pulse Resp BP Sys/Quezada Pulse Ox Last 24 Hr 97.3 F-98.7 F 75-104 18-39 84-161/44-120 93-100 - General Appearance General appearance: well-developed, well-nourished, appears started age EENT: ATNC Neck: no JVD, no thyromegaly, no carotid bruit, supple Respiratory: no kyphosis, no scoliosis Cardiology: no murmurs, no rub, no gallops, no edema, regular rate, regular rhythm, normal S1, normal S2 Gastrointestinal: normoactive bowel sounds Integumentary: no rash, warm and dry Neurologic: no focal deficit, no asterixis, alert and oriented x3, reflexes 2+ and symmetric, gait normal, strength 5/5 Results - Labs CBC & BMP: 10/04/16 05:45 10/05/16 07:25 Assessment and Plan (1) Renal insufficiency Status: Acute Assessment and plan: Watch volume which will be hard to assess. Dose adjust Vancomycin. Agree with no MILDRED inhibitor. Current Visit: No (2) Small bowel obstruction Status: Acute Assessment and plan: Being centrally hyperalimented. Current Visit: No (3) Diabetes mellitus Status: Chronic Current Visit: Yes
[2016-10-05] MEDS: FUROSEMIDE 40 MG/4 ML VIAL IV SCH (17:16)
[2016-10-05] MEDS: COLLAGENASE OINT 30 GM TUBE TOP SCH (17:55)
--- NOTE | 2016-10-05 18:23 | General Surgery Progress Note ---
Assessment and Plan (1) SBO (small bowel obstruction) Status: Resolved Assessment and plan: Resolved. Concern about aspiration and patient swallowing. Will make NPO and c/ s ST for eval. Current Visit: No Subjective Patient reports: Present: other (Concerns about aspiration. Pt intake is low and nurse reports concerns about getting her to swallow appropriately. ) Exam - Constitutional Vitals: Period Temp Pulse Resp BP Sys/Quezada Pulse Ox Last 24 Hr 97.3 F-98.7 F 69-99 21-36 84-157/44-120 93-100 General appearance: no acute distress - GI/Abdominal GI/Abdominal exam: Present: normal bowel sounds, soft. Absent: distended, tenderness - Neurological Exam Neurological exam: Present: alert, oriented X3 - Skin Skin exam: Present: normal color, warm Results - Labs CBC & BMP: 10/04/16 05:45 10/05/16 07:25
[2016-10-05] MEDS: PHENYLEPHRINE DRIP 40 MG/250 ML PREMIX IV SCH (22:06)
[2016-10-06] MEDS: ALBUTEROL/IPRATROPIUM 3 ML NEB RESP TX SCH ×7 (00:04→23:38)
[2016-10-06 03:38] LABS: ABG Base Excess -3.8 MMOL/L (-2.5-2.5); ABG HCO3 21.2 MMOL/L (20-26); ABG Oxygen Saturation 98.2 % (95-100); ABG PCO2 41.3 MM HG (35-48); ABG PH 7.331 (7.35-7.45); ABG TCO2 20.2 MMOL/L (23-27); Allen Test Positive; Pt O2 Delivery Device BIPAP
[2016-10-06 04:42] LABS: Basophils # 0.1 10*3/uL (0.0-0.2); Basophils % 0.2 % (0.0-0.8); Hematocrit 27.5 VOL% (35.7-47.0); Hemoglobin 8.9 GM/DL (12.0-16.0); Immature Granulocytes % 1.3 %; Immature Granulocytes Absolute 0.44 #; Lymphocytes # 0.8 10*3/uL (1.4-4.0); Lymphocytes % 2.5 % (21.3-54.2); Mean Corpuscular HGB Conc 32.4 GM/DL (32-36); Mean Corpuscular Hemoglobin 29 PG (27-34); Mean Corpuscular Volume 89.6 FL (87-102); Mean Platelet Volume 12.6 FL (9.6-12.0); Monocytes # 1.8 10*3/uL (0.11-0.8); Monocytes % 5.3 % (1.7-12.7); Neutrophils # 30.2 10*3/uL (1.4-7.4); Neutrophils % 90.7 % (38.7-73.9); Platelet Count 427 T/CUMM (130-400); Red Blood Count 3.07 MC/CUMM (3.8-5.5); Red Cell Distribution Width 15.9 % (9.3-17.3); White Blood Count 33.3 T/CUMM (4-12)
[2016-10-06 05:13] LABS: Osmolality,Calculated 305.1 MOS/KG (273-304); Potassium 5.3 MMOL/L (3.5-5.1)
[2016-10-06 05:18] LABS: Lymphocytes 2 % (20-55); Platelet Estimate Adequate; Segmented Neutrophils 92 % (50-85); Total Cells Counted 100
[2016-10-06 05:19] LABS: Burr Cells Slight; Hypochromasia 1+; Microcytosis Slight
[2016-10-06] MEDS: ALUMINUM/MAGNES/SIMETH MAX STR 30 ML UDCUP PER TUBE SCH ×4 (05:49→21:06)
[2016-10-06 06:01] LABS: Magnesium 2.6 MG/DL (1.8-2.4)
[2016-10-06] MEDS: methylPREDNISolone SOD SUC 40 MG/1 ML VIAL IV SCH ×2 (06:37→18:24)
[2016-10-06] MEDS: INSULIN LISPRO 100 UNIT/ML SUBCUT SCH ×3 (06:41→18:19)
--- NOTE | 2016-10-06 07:03 | XRay Report ---
Portable chest Date: 10/06/2016 Clinical history: Ventilator Comparison: 10/05/2016 Technique: Portable AP sitting chest Findings: The heart is smaller in size with stable right subclavian ventricular permanent pacemaker and venous catheter. Reduced parenchymal findings with smaller pleural effusions. Stable mediastinum with degenerative changes. Impression: Improved pulmonary edema with smaller pleural effusions. Stable right subclavian ventricular permanent pacemaker. PROCEDURE INTERPRETED AT [facility] DEPARTMENT OF RADIOLOGY Final Report Signed by: Dr. Zaira Stovall
[2016-10-06] MEDS: LEVOTHYROXINE 25 MCG TABLET PO SCH (07:57)
--- NOTE | 2016-10-06 08:54 | Cardiology Progress Note ---
<Archana Lovell E - Last Filed: 10/06/16 08:53> Assessment and Plan (1) Acute respiratory failure Status: Acute Assessment and plan: SEE PLAN OF CARE LISTED BELOW Current Visit: Yes Qualifiers: Respiratory failure complication: hypoxia and hypercapnia Qualified Code(s) : J96.01 - Acute respiratory failure with hypoxia; J96.02 - Acute respiratory failure with hypercapnia (2) Elevated troponin Status: Acute Assessment and plan: SEE PLAN OF CARE LISTED BELOW Current Visit: Yes (3) Pneumonia Status: Acute Assessment and plan: SEE PLAN OF CARE LISTED BELOW Current Visit: Yes (4) Septic shock Status: Acute Assessment and plan: SEE PLAN OF CARE LISTED BELOW Current Visit: Yes (5) COPD (chronic obstructive pulmonary disease) Status: Chronic Current Visit: Yes Qualifiers: COPD type: chronic bronchitis Chronic bronchitis type: simple Qualified Code(s): J41.0 - Simple chronic bronchitis (6) Chronic renal insufficiency Status: Chronic Assessment and plan: SEE PLAN OF CARE LISTED BELOW Current Visit: Yes Qualifiers: Chronic kidney disease stage: stage 2 (mild) Qualified Code(s): N18.2 - Chronic kidney disease, stage 2 (mild) (7) Diabetes mellitus Status: Chronic Assessment and plan: SEE PLAN OF CARE LISTED BELOW Current Visit: Yes (8) Hypertension Status: Chronic Assessment and plan: SEE PLAN OF CARE LISTED BELOW Current Visit: Yes Qualifiers: Hypertension type: essential hypertension Qualified Code(s): I10 - Essential (primary) hypertension (9) Nonischemic cardiomyopathy Status: Chronic Assessment and plan: SEE PLAN OF CARE LISTED BELOW Current Visit: Yes (10) Status post placement of cardiac pacemaker Status: Chronic Assessment and plan: SEE PLAN OF CARE LISTED BELOW Current Visit: Yes (11) History of breast cancer Status: Chronic Assessment and plan: SEE PLAN OF CARE LISTED BELOW Current Visit: No Cardiology - PN: Subj Interval history: Archana to complete Exam (Progress Note) - Constitutional Vitals: Period Temp Pulse Resp BP Sys/[place] Pulse Ox Last 24 Hr 96.6 F-98.2 F 58-83 14-28 84-130/43-75 93-100 Result/EKG - Labs CBC & BMP: 10/06/16 03:41 10/06/16 03:41 Labs: Laboratory Results - last 24 hr 10/05/16 10/05/16 10/05/16 09:37 12:12 17:47 WBC RBC Hgb Hct MCV MCH MCHC RDW Plt Count MPV Neut % (Auto) Lymph % (Auto) [place] % (Auto) Eos % (Auto) Baso % (Auto) Neut # (Auto) Lymph # (Auto) [place] # (Auto) Eos # (Auto) Baso # (Auto) Total Counted Immature Gran % Nucleated RBC % Immature Gran # Segmented Neutrophils Lymphocytes Monocytes Nucleated RBCs # Platelet Estimate Hypochromasia Microcytosis [place] Cells Morphology Comment ABG pH ABG pCO2 ABG pO2 ABG HCO3 ABG Total CO2 ABG O2 Saturation ABG Base Excess FiO2 Sodium Potassium Chloride Carbon Dioxide Anion Gap BUN Creatinine GFR Calculation BUN/Creatinine Ratio Glucose POC Glucose 240 H 203 H Calculated Osmolality Calcium Phosphorus Magnesium B-Natriuretic Peptide Prealbumin Vancomycin Trough 22.4 H 10/05/16 10/06/16 10/06/16 23:28 03:15 03:41 WBC RBC Hgb Hct MCV MCH MCHC RDW Plt Count MPV Neut % (Auto) Lymph % (Auto) [place] % (Auto) Eos % (Auto) Baso % (Auto) Neut # (Auto) Lymph # (Auto) [place] # (Auto) Eos # (Auto) Baso # (Auto) Total Counted Immature Gran % Nucleated RBC % Immature Gran # Segmented Neutrophils Lymphocytes Monocytes Nucleated RBCs # Platelet Estimate Hypochromasia Microcytosis [place] Cells Morphology Comment ABG pH 7.331 L ABG pCO2 41.3 ABG pO2 106.0 H ABG HCO3 21.2 ABG Total CO2 20.2 L ABG O2 Saturation 98.2 ABG Base Excess -3.8 L FiO2 28.00 Sodium 135 L Potassium 5.3 H Chloride 102 Carbon Dioxide 23 Anion Gap 15.3 H BUN 92 H D Creatinine 1.50 H GFR Calculation 42 BUN/Creatinine Ratio 61.00 H Glucose 237 H POC Glucose 188 H Calculated Osmolality 305.1 H Calcium 9.0 Phosphorus Magnesium B-Natriuretic Peptide Prealbumin Vancomycin Trough 10/06/16 10/06/16 10/06/16 03:41 03:41 03:41 WBC 33.3 H RBC 3.07 L Hgb 8.9 L Hct 27.5 L MCV 89.6 MCH 29 MCHC 32.4 RDW 15.9 Plt Count 427 H D MPV 12.6 H Neut % (Auto) 90.7 H Lymph % (Auto) 2.5 L [place] % (Auto) 5.3 Eos % (Auto) 0.0 Baso % (Auto) 0.2 Neut # (Auto) 30.2 H Lymph # (Auto) 0.8 L [place] # (Auto) 1.8 H Eos # (Auto) 0.0 Baso # (Auto) 0.1 Total Counted 100 Immature Gran % 1.3 Nucleated RBC % 0.0 Immature Gran # 0.44 Segmented Neutrophils 92 H Lymphocytes 2 L Monocytes 6 Nucleated RBCs # 0.00 Platelet Estimate Adequate Hypochromasia 1+ Microcytosis Slight [place] Cells Slight Morphology Comment ABG pH ABG pCO2 ABG pO2 ABG HCO3 ABG Total CO2 ABG O2 Saturation ABG Base Excess FiO2 Sodium Potassium Chloride Carbon Dioxide Anion Gap BUN Creatinine GFR Calculation BUN/Creatinine Ratio Glucose POC Glucose Calculated Osmolality Calcium Phosphorus 3.0 Magnesium 2.6 H B-Natriuretic Peptide 751 H Prealbumin 23.0 Vancomycin Trough 10/06/16 06:37 WBC RBC Hgb Hct MCV MCH MCHC RDW Plt Count MPV Neut % (Auto) Lymph % (Auto) [place] % (Auto) Eos % (Auto) Baso % (Auto) Neut # (Auto) Lymph # (Auto) [place] # (Auto) Eos # (Auto) Baso # (Auto) Total Counted Immature Gran % Nucleated RBC % Immature Gran # Segmented Neutrophils Lymphocytes Monocytes Nucleated RBCs # Platelet Estimate Hypochromasia Microcytosis [place] Cells Morphology Comment ABG pH ABG pCO2 ABG pO2 ABG HCO3 ABG Total CO2 ABG O2 Saturation ABG Base Excess FiO2 Sodium Potassium Chloride Carbon Dioxide Anion Gap BUN Creatinine GFR Calculation BUN/Creatinine Ratio Glucose POC Glucose 255 H Calculated Osmolality Calcium Phosphorus Magnesium B-Natriuretic Peptide Prealbumin Vancomycin Trough <Gato Mcgill - Last Filed: 10/06/16 09:04> Assessment and Plan (1) Elevated troponin Status: Acute Current Visit: Yes (2) Dehydration Status: Acute Current Visit: Yes (3) Chronic renal insufficiency Status: Chronic Current Visit: Yes Qualifiers: Chronic kidney disease stage: stage 2 (mild) Qualified Code(s): N18.2 - Chronic kidney disease, stage 2 (mild) (4) Hypertension Status: Chronic Current Visit: Yes Qualifiers: Hypertension type: essential hypertension Qualified Code(s): I10 - Essential (primary) hypertension (5) Nonischemic cardiomyopathy Status: Chronic Current Visit: Yes (6) COPD (chronic obstructive pulmonary disease) Status: Chronic Current Visit: Yes Qualifiers: COPD type: chronic bronchitis Chronic bronchitis type: simple Qualified Code(s): J41.0 - Simple chronic bronchitis (7) Diabetes mellitus Status: Chronic Current Visit: Yes (8) History of breast cancer Status: Chronic Current Visit: No (9) Status post placement of cardiac pacemaker Status: Chronic Current Visit: Yes (10) On mechanically assisted ventilation Status: Acute Current Visit: Yes Exam (Progress Note) - Constitutional Vitals: Period Temp Pulse Resp BP Sys/[place] Pulse Ox Last 24 Hr 96.6 F-98.2 F 58-83 14-28 84-130/43-75 93-100 Result/EKG - Labs CBC & BMP: 10/06/16 03:41 10/06/16 03:41 Labs: Laboratory Results - last 24 hr 10/05/16 10/05/16 10/05/16 09:37 12:12 17:47 WBC RBC Hgb Hct MCV MCH MCHC RDW Plt Count MPV Neut % (Auto) Lymph % (Auto) [place] % (Auto) Eos % (Auto) Baso % (Auto) Neut # (Auto) Lymph # (Auto) [place] # (Auto) Eos # (Auto) Baso # (Auto) Total Counted Immature Gran % Nucleated RBC % Immature Gran # Segmented Neutrophils Lymphocytes Monocytes Nucleated RBCs # Platelet Estimate Hypochromasia Microcytosis [place] Cells Morphology Comment ABG pH ABG pCO2 ABG pO2 ABG HCO3 ABG Total CO2 ABG O2 Saturation ABG Base Excess FiO2 Sodium Potassium Chloride Carbon Dioxide Anion Gap BUN Creatinine GFR Calculation BUN/Creatinine Ratio Glucose POC Glucose 240 H 203 H Calculated Osmolality Calcium Phosphorus Magnesium B-Natriuretic Peptide Prealbumin Vancomycin Trough 22.4 H 10/05/16 10/06/16 10/06/16 23:28 03:15 03:41 WBC RBC Hgb Hct MCV MCH MCHC RDW Plt Count MPV Neut % (Auto) Lymph % (Auto) [place] % (Auto) Eos % (Auto) Baso % (Auto) Neut # (Auto) Lymph # (Auto) [place] # (Auto) Eos # (Auto) Baso # (Auto) Total Counted Immature Gran % Nucleated RBC % Immature Gran # Segmented Neutrophils Lymphocytes Monocytes Nucleated RBCs # Platelet Estimate Hypochromasia Microcytosis [place] Cells Morphology Comment ABG pH 7.331 L ABG pCO2 41.3 ABG pO2 106.0 H ABG HCO3 21.2 ABG Total CO2 20.2 L ABG O2 Saturation 98.2 ABG Base Excess -3.8 L FiO2 28.00 Sodium 135 L Potassium 5.3 H Chloride 102 Carbon Dioxide 23 Anion Gap 15.3 H BUN 92 H D Creatinine 1.50 H GFR Calculation 42 BUN/Creatinine Ratio 61.00 H Glucose 237 H POC Glucose 188 H Calculated Osmolality 305.1 H Calcium 9.0 Phosphorus Magnesium B-Natriuretic Peptide Prealbumin Vancomycin Trough 10/06/16 10/06/16 10/06/16 03:41 03:41 03:41 WBC 33.3 H RBC 3.07 L Hgb 8.9 L Hct 27.5 L MCV 89.6 MCH 29 MCHC 32.4 RDW 15.9 Plt Count 427 H D MPV 12.6 H Neut % (Auto) 90.7 H Lymph % (Auto) 2.5 L [place] % (Auto) 5.3 Eos % (Auto) 0.0 Baso % (Auto) 0.2 Neut # (Auto) 30.2 H Lymph # (Auto) 0.8 L [place] # (Auto) 1.8 H Eos # (Auto) 0.0 Baso # (Auto) 0.1 Total Counted 100 Immature Gran % 1.3 Nucleated RBC % 0.0 Immature Gran # 0.44 Segmented Neutrophils 92 H Lymphocytes 2 L Monocytes 6 Nucleated RBCs # 0.00 Platelet Estimate Adequate Hypochromasia 1+ Microcytosis Slight [place] Cells Slight Morphology Comment ABG pH ABG pCO2 ABG pO2 ABG HCO3 ABG Total CO2 ABG O2 Saturation ABG Base Excess FiO2 Sodium Potassium Chloride Carbon Dioxide Anion Gap BUN Creatinine GFR Calculation BUN/Creatinine Ratio Glucose POC Glucose Calculated Osmolality Calcium Phosphorus 3.0 Magnesium 2.6 H B-Natriuretic Peptide 751 H Prealbumin 23.0 Vancomycin Trough 10/06/16 06:37 WBC RBC Hgb Hct MCV MCH MCHC RDW Plt Count MPV Neut % (Auto) Lymph % (Auto) [place] % (Auto) Eos % (Auto) Baso % (Auto) Neut # (Auto) Lymph # (Auto) [place] # (Auto) Eos # (Auto) Baso # (Auto) Total Counted Immature Gran % Nucleated RBC % Immature Gran # Segmented Neutrophils Lymphocytes Monocytes Nucleated RBCs # Platelet Estimate Hypochromasia Microcytosis [place] Cells Morphology Comment ABG pH ABG pCO2 ABG pO2 ABG HCO3 ABG Total CO2 ABG O2 Saturation ABG Base Excess FiO2 Sodium Potassium Chloride Carbon Dioxide Anion Gap BUN Creatinine GFR Calculation BUN/Creatinine Ratio Glucose POC Glucose 255 H Calculated Osmolality Calcium Phosphorus Magnesium B-Natriuretic Peptide Prealbumin Vancomycin Trough
[2016-10-06] MEDS: NITROGLYCERIN DRIP 50 MG/250 ML BOTTLE IV SCH (09:31)
[2016-10-06] MEDS: LISINOPRIL 2.5 MG TABLET PO SCH ×2 (09:32→21:07)
[2016-10-06] MEDS: NEBIVOLOL 5 MG TABLET PO SCH (09:32)
[2016-10-06] MEDS: INSULIN GLARGINE 100 UNIT/ML SUBCUT SCH (09:42)
[2016-10-06] MEDS: MEROPENEM 1,000 MG in SODIUM CHLORIDE 0.9% 100 ML IV SCH ×2 (09:42→21:28)
[2016-10-06] MEDS: COLLAGENASE OINT 30 GM TUBE TOP SCH (09:49)
[2016-10-06] MEDS: MUPIROCIN 2% OINT 22 GM TUBE TOP SCH ×2 (09:50→21:27)
[2016-10-06] MEDS: DESITIN 4OZ/NYSTATIN 15 GRAM MIXTURE PASTE TOP SCH ×2 (09:50→21:28)
[2016-10-06] MEDS: FUROSEMIDE 20 MG/2 ML VIAL IV SCH (10:02)
--- NOTE | 2016-10-06 10:09 | Event Note ---
In hospital therapeutic and diagnostic fiberoptic bronchoscopy. Bilateral lavages were sent for cytology, Gram stain, bacterial cultures and sensitivities , fungal stains and cultures. This is an 81-year-old white female who originally presented with a bowel obstruction. She had aspiration and pulmonary infection with E. coli and methicillin-resistant staph aureus along the way. She required intubation. She has been off intubation is done well until the past few days when she has developed mild congestive heart failure and loud tracheal and bilateral large airway congestion that has the sound of retained secretions and possible aspiration. Patient needs reculturing also. For all these reasons the patient was reevaluated with fiberoptic bronchoscopy today. The vocal cords were slightly erythematous and the surrounding tissue was slightly erythematous. The trachea was moderately to markedly collapsible. There were retained secretions throughout the trachea. These were removed with suctioning. The ashleigh was sharp. The right mainstem bronchus was nearly occluded with thick tenacious secretions which were removed with suction the right upper lung was relatively spared. The right middle lung orifice was small and oval-shaped. This area was lavaged until clear. There were tremendous amount of thick tenacious secretions in the right lower lung and the bronchi and alveoli were lavaged until clear. The specimens were sent for the studies and noted above. There was mild erosive friable bronchitis in the right lower lung. All visible airways were moderately to markedly collapsible compatible with underlying COPD. Left mainstem bronchus was full of thick tenacious secretions that were removed these extended into the left upper lung and left lower lung and both of these areas were lavaged endobronchially and alveolar until clear and specimens were sent for the studies noted above. Large and small airways were collapsible compatible with COPD and there was erosive friable bronchitis in the left lower lung. The erosive bronchitis is most likely infectious and probably left over from previous aspiration. I did not see any gastric contents in the left or the right bronchial trees. The patient tolerated procedure well. Her breath sounds were clear afterwards and her oxygenation was a good bit better. Impression. 1. Past history of aspiration. Suspected recurrent aspiration not definitely found 2. COPD with collapsible trachea, large and small airways. 3. Bibasal erosive friable bronchitis probably secondary to previous aspiration and superimposed infection 4. Ineffective cough 5. Retained secretions 6. See above Plan. 1. Check on bronchoscopy specimens. 2. Follow-up x-ray. 3. Swallowing study
--- NOTE | 2016-10-06 10:29 | Pulmonology Progress Note ---
Pulmonary - PN: Subj Interval history: This 81-year-old black female whom I saw in pulmonary consultation on 09/25/2016. I was asked to manage her pulmonary problems and her mechanical ventilation. Patient originally been admitted with small bowel obstruction and septic shock. She also had acute kidney injury and she was dehydrated and she had mild elevation of her troponins. She had acute renal failure with hypotension and her lactic acids were elevated 6.6 and creatinine was 3.6. Dr. Henrry Moore saw in surgery consultation she was treated this conservatively. From pulmonary standpoint she became exhausted on the night of 09/24/2016 and reached a point that she could not continue to breathe and she required intubation mechanical ventilation. My impressions are. 1. Right lower lung, left upper lung and left lower lung pneumonia with atelectasis. This patient's had small bowel obstruction with nausea and vomiting. I suspect we have aspiration with bacterial superinfection. 2. Small bowel obstruction. Patient's had no bowel movements but she is developing bowel sounds. 3. Insulin-dependent diabetes mellitus 4. History of high blood pressure 5. COPD/asthma 6. Cardiac pacemaker 7. Breast cancer. 2014 8. Obesity 9. Former smoker 10. Acute on chronic renal failure. 09/26/2016. Earlier today this patient was evaluated with fiberoptic bronchoscopy . She had retained secretions bilaterally. She had evidence of mild gastric acid injury which is most prominent in the left upper lung and left lower lung and right lower lung. Multiple specimens were sent for cultures. She tolerated procedure well. Pre-bronchoscopy chest x-ray showed a fairly dense left lower lung infiltrate. There are scattered infiltrates in the right upper and right lower lung. There are no positive cultures. Sputum Gram stain from showed many gram-positive cocci. On mechanical ventilation with FiO2 of 50% ABGs show pH 7.395, PCO2 37, PO2 157 and bicarbonate 23. Electrolytes are close to normal. Creatinine is 2.10 with a BUN of 74. White count is elevated at 26,000 with 79 segs 6 lymphs and 10 monos. H&H is dropped to 9.9/ 31.0 and platelets are 224,000. Glucoses are elevated. Doppler venogram showed no evidence of deep venous thrombophlebitis. This patient's on stage to the weaning protocol. She was tried on a T-tube for short time and did not terrible. Will continue present protocols and make sure she is also on physical therapy protocol. 09/27/2016. Today's chest x-ray shows improvement. There is better variation. Patient has cardiomegaly. Her sputum is growing E. coli and methicillin- resistant staph aureus. Gram-positive cocci gram-negative rods are growing from bronchoscopy specimens taken 2016. This patient originally presented with small bowel obstruction was covered with GI medicines. The present time I have left her on vancomycin. I have stopped her Levaquin and I have stopped her Cleocin. I have added Fortaz. I have consulted infectious disease to help with management. White blood cell count remains elevated at 28,900 with 83 segs. H&H is 9.2/28.1. Platelets of 203,000. Creatinine is 2.00 with a BUN of 76. Electrolytes are normal. C-reactive protein is elevated at 9.98. Vancomycin trough level is 4.8. This is being managed by pharmacology. ABGs on FiO2 of 40% and mechanical ventilation showed pH of 7.445, PCO2 of 33, PO2 of 136 and bicarb of 22.2. The patient still in stage III to weaning protocol. Physical therapy protocol as previously been ordered. 09/28/2016. I appreciate Dr. Tirado's infectious disease consultation. Today's chest x-ray shows some mild alveolar infiltrate in the right lower lung the left upper lung. Left lower lung is not well seen. Patient's sputum and bronchoscopy specimens are growing E. coli and methicillin-resistant staph aureus. She is now been advanced to stage V the weaning protocol. ABGs are stable. White count remains elevated 29,400. H&H is stable at 10.0/30.6 and platelets are 259,000. Electrolytes are normal. Creatinine is dropped to 1.80 with a BUN of 75. 09/29/2016. Today's chest x-ray shows cardiomegaly. There are increased interstitial markings in the medial basal segment of the right lower lung and also in the left perihilar area. These are resolving infiltrates. There is no congestive heart failure. Patient's on stage V the weaning protocol. ABGs on mechanical ventilation FiO2 40% shows a pH of 7.48, PCO2 of 30.6, PO2 of 152 and a bicarb of 24.6. Electrolytes are normal. Creatinine is 1.6 with a BUN of 66 white count remains elevated 26,000 with 82% segs H&H is 9.9/29.9 and platelets of 293,000. Bronchoscopy specimens grew E. coli and methicillin- resistant staph aureus which would be in treated by infectious disease 09/30/2016. This is a 81-year-old black female who was originally admitted with small bowel obstruction. She was treated conservatively in this included an NG tube with suction. Later on she became exhausted and required intubation mechanical ventilation. She has some element of aspiration and she had a lot of retained secretions. Bronchoscopy specimens have grown E. coli and methicillin-resistant staph aureus. Infectious diseases on the case. Today's chest x-ray shows cardiomegaly there is a residual right lower lung and left perihilar infiltrate. This is alveolar with some increased interstitial markings. Patient's on stage V of the weaning protocol. ABGs on mechanical ventilation and FiO2 40% shows a pH 7.44, PCO2 36, PO2 143 and a bicarb of 25. White count remains elevated 22,900. H&H is stable at 9.8/29.6. Platelets 338, 000. Creatinine is gradually fallen to 1.50 with a BUN of 51. We will continue the weaning protocol on this patient. We need careful attention to removal of pulmonary secretions. It is possible that she could be extubated in the next 3 or 4 days. She is recently been started on NG feedings. She had 270 cc of residual feedings this morning and I have asked that we change her back to IV hyperalimentation. She will need adequate nutrition in order to come off the ventilator. 10/03/2016. This patient was extubated 10/02/2016 and she is done well since then. Her chest x-ray is better. Previously noted bilateral infiltrates are less prominent. ABGs on FiO2 32% show a pH of 7.408. PCO2 40. PO2 of 88.7 and a bicarb of 25. White blood cell count remains elevated 26,000. H&H is 8.3 /25.8. Platelets are 411,000. Electrolytes are normal. Creatinine is 1.30 with a BUN of 49. Vancomycin trough level is 18.1. This is being managed by pharmacology. This patient continues on IV hyperalimentation. I think we should continue this and we can retry p.o. intake but only a few days ago she had 275 cc of gastric residual. 10/04/2016. At around 430 or 5:00 this morning the patient developed increased respiratory distress. She was said to have stridor in her tracheal and large airway area. I was called. She was treated with ventilation therapy and since then I have added Acapella low and this is helped the patient mobilize secretions. Her chest x-ray showed evidence of pulmonary edema and she was given 40 of Lasix IV push. Since that time she has had at least 400 cc of urine output and her chest x-ray looks a lot better. She still has some bilateral pleural effusions involving the major fissures. On her chest x-ray there is dilatation of her stomach so I think we have to watch closely for reflux and aspiration in this patient. She is on Reglan I do not see any neurological side effects related to this. Patient's bronchial lavage has grown E. coli and methicillin-resistant staph aureus which is being treated by infectious disease. Patient's on cephalosporins. She is allergic to penicillin. I do not see any evidence of reaction from that standpoint. ABGs on FiO2 36% shows a pH 7.36, PCO2 42, PO2 of 63 and a bicarb of 23. White blood cell count is increased to 36,600. Platelets of 566,000 and H&H is 9.9/ 31.5. Potassium is 5.5. Creatinine is 1.4 and BUN is 59. Natruretic peptide is elevated at 1889. I started the patient on Lasix 20 IV push twice a day. Will need to watch her chest x-ray, BNP and BMP. Continue inhalation therapy. 10/05/2016. Today's x-ray looks better. Patient has cardiomegaly and mild central venous engorgement. Interstitial markings are closer to normal. There is still has the appearance of mild compensated congestive heart failure. Natruretic peptide is dropped from 1889 2 755. Creatinine is increased from 1.4 -1.6 with a BUN of 76. FiO2 has been increased to 60% and blood gases show a pH of 7.39, PCO2 of 40.8, PO2 of 111 and a bicarb of 24. This patient's going to require diuresis for congestive heart failure. Creatinine has increased with a small dose of Lasix. I am going to stop her lisinopril. I have consulted Dr. Stefan Ellis to see her in nephrology consultation and I have ordered ultrasounds of her kidneys. Patient has very coarse congestion in the trachea and the large airways. I am very concerned about reflux with aspiration and his staff is watching closely for this. Labs been reviewed. Medicines have been reviewed. 10/06/2016. Today's chest x-ray is better. Patient still has mild pulmonary edema. Fluid can be seen in the minor fissure and at both costophrenic angles. There may be an infiltrate or atelectasis in the left lower lung as the diaphragm is no longer distinguishable. Patient still has problems with hypoxemia but her oxygenation is better. On chest exam she still has significant tracheal and large airway congestion. This is compatible with retained secretions and I am very concerned that she may have aspirated. She is now n.p.o. and she is receiving IV feedings. As a result of the above I evaluated patient with fiberoptic bronchoscopy this morning. I did not see any recent aspiration although we know she had a previous aspiration injury is been documented on the previous bronchoscopy. The trachea large and small airways were moderately to markedly collapsible secondary to underlying COPD and this is because difficulty mobilizing secretions. 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 The trachea and both bronchial trees were full of thick tenacious secretions that were removed with bronchial and alveolar lavage. Specimens were sent for cytology, bacterial and fungal studies. Patient continues to run a high white count at 33,300. There are 90.76. I have ordered cultures from her central line site. Will get 3 and will drawn 1 hour apart. ABGs on FiO2 28 % shows a pH 7.33, PCO2 41, PO2 of 106 and a bicarb of 21.2. Electrolytes are normal. Creatinine is fallen to 1.5 with a BUN of 192. H&H is 8.9/27.5 and platelets of [id number]. Labs been reviewed. Medicines been reviewed. Physical exam. General. No apparent distress. Psychiatric. Patient just looks at me but will not answer any questions. Vital signs. See below Neurologic. Patient sedated but she appears to move all fours. Face is symmetrical. Tongue is very large Neck is symmetrical no meningismus Chest reveals prominent large airway congestion. Prolonged expiration. Heart no gallop Abdomen rare bowel sounds Lower extremities. Chronic venous stasis. No evidence of deep venous thrombophlebitis. Lymphatics. No submandibular cervical supraclavicular adenopathy. Skin the face and hands show no cancerous infectious lesions. No other areas of skin were examined The remainder of the physical exam is negative Plan. 09/25/2006 1. Agree with antibiotics. Levaquin and Flagyl. Vancomycin 2. Fiberoptic bronchoscopy 3. Patient's on pressor agents to support of breath blood pressure at the present time 4. Proton pump inhibitor protocol 5. Agree with deep venous thrombophlebitis prevention protocol 6. Mechanical ventilation weaning protocol 7. Mechanical ventilation physical therapy protocol 8. Daily chest x-ray ABGs and lab 9. Doppler venograms of lower extremity 10. See orders. 11. Sputum for Gram stain culture and sensitivity 09/26/2016. 1. See today's note above. 2. Check bronchoscopy specimen 3. All applicable protocols Home Medications 09/27/2016. 1. Sputum specimens are positive for E. coli and methicillin-resistant staph aureus. See today's note above about antibiotic changes made. Infectious disease has been consulted. 2. Continue weaning protocol 3. Continue daily ABGs chest x-ray and lab. 09/28/2016. 1. See today's note above. 2. Continue daily chest x-ray, ABGs and lab. 3. Stage V weaning protocol 4. Physical therapy protocol 09/29/2016. 1. See today's note above. 2. Daily chest x-ray, ABGs and lab. 3. Weaning protocol 4. Physical therapy protocol 5. Tongue is very large I hope this does not become a problem with weaning. The patient is not on MILDRED inhibitors or carbs. I do not see any skin rash. 09/30/2016. 1. See today's note above. 2. Daily chest x-ray, ABGs and lab 3. Stage V weaning protocol 4. Physical therapy protocol. 5. Keep an eye on the patient's tongue. He is unusually large. 10/04/2016. 1. See today's note above 2. Start Lasix 20 IV push every 12 hours. 3. Daily chest x-ray ABGs BMP and BNP. 10/05/2016. 1. Continue Lasix. 2. Stop lisinopril 3. Ultrasound of the kidneys 4. Renal consultation 5. Daily chest x-ray, ABGs, BNP, BMP. 10/06/2016. 1. See today's note above. 2. Fiberoptic bronchoscopy. See report. Check specimens. 3. Blood cultures from central venous line. 4. Daily chest x-ray, ABGs, BNP and BMP Exam (Progress Note) - Constitutional Vitals: Period Temp Pulse Resp BP Sys/Quezada Pulse Ox Last 24 Hr 96.6 F-98.2 F 58-83 14-39 84-138/43-85 93-100 Results - Labs CBC & BMP: 10/06/16 03:41 10/06/16 03:41
[2016-10-06] MEDS ORDERED: LEVOTHYROXINE 100 MCG VIAL IV ONE (10:30)
--- NOTE | 2016-10-06 10:54 | Infectious Disease Progress ---
Assessment and Plan (1) Pneumonia Status: Acute Assessment and plan: MRSA and E. coli cultured previously. FOB today still showing thick tenacious secretions in airways. Patient with chronic respiratory failure requiring non- invasive ventillation. Recommendations: Escalate from cefazolin to meropenem (renally dosed at 1g q12h ) and continue vancomycin. F/U cultures of BAL sent today. Prognosis guarded. F/U WBC. D/W Dr Slade Current Visit: Yes (2) COPD (chronic obstructive pulmonary disease) Status: Chronic Current Visit: Yes Qualifiers: COPD type: chronic bronchitis Chronic bronchitis type: simple Qualified Code(s): J41.0 - Simple chronic bronchitis (3) Chronic renal insufficiency Status: Chronic Assessment and plan: Creta stable since yesterday. Current Visit: Yes Qualifiers: Chronic kidney disease stage: stage 2 (mild) Qualified Code(s): N18.2 - Chronic kidney disease, stage 2 (mild) (4) Diabetes mellitus Status: Chronic Current Visit: Yes (5) Hypertension Status: Chronic Current Visit: Yes Qualifiers: Hypertension type: essential hypertension Qualified Code(s): I10 - Essential (primary) hypertension Infectious Disease - PN: Subj Interval history: Patient had to be put on bilevel ventillation yesterday for respiratory distress. She was poorly responsive this am but by the time I saw her she was easily arousable and followed simple commands. Infectious Disease Exam (PN) - Constitutional Vitals: Temp Pulse Resp BP Pulse Ox 97.4 F L 66 23 116/51 100 10/06/16 08:00 10/06/16 10:00 10/06/16 10:00 10/06/16 10:00 10/06/16 10:00 General appearance: no acute distress Exam: General appearance: arousable, squeezed my hand on command - Eye Eye exam: Present: EOMI. no icterus Pupils: Present: VALENTINA - Respiratory Respiratory exam: Very harsh breath sounds throughout - Cardiovascular Cardiovascular exam: regular rate and rhythm, no murmurs - GI/Abdominal GI/Abdominal exam: normal bowel sounds, soft, non-tender, no organomegaly or mass - Extremities Exam Extremities exam: no edema - Skin Skin exam: no rash Results - Labs CBC & BMP: 10/06/16 03:41 10/06/16 03:41 Lab Results: I have reviewed the past 24 hour labs (still severe leukocytosis) - Diagnostic Findings Procedure: Chest x-ray: image reviewed by me, report reviewed by me (lung parenchyma looks better today, no significant consolidation)
--- NOTE | 2016-10-06 13:14 | Nephrology Progress Note ---
Nephrology - PN: Subj Interval history: Ms. Oconnell is seen in follow-up of her renal impairment. Her creatinine is actually better today at 1.5 down from 1.6. BUN is 90. She continues to receive hyper L. Her family is visiting during my visit and she is fairly alert and interacting with them. She has no edema and appears fairly well- hydrated we will continue to follow. Vancomycin doses are being adjusted based on renal function. Exam (PN)-Nephrology - Vital Signs Vital signs: Period Temp Pulse Resp BP Sys/Quezada Pulse Ox Last 24 Hr 96.6 F-97.8 F 58-83 14-39 89-138/43-85 95-100 - Lab 10/06/16 03:41 10/06/16 03:41 Most recent lab results ABG pH 7.331 (7.35-7.45) L 10/06/16 03:15 ABG pCO2 41.3 MM HG (35-48) 10/06/16 03:15 ABG pO2 106.0 MM HG (80-95) H 10/06/16 03:15 ABG HCO3 21.2 MMOL/L (20-26) 10/06/16 03:15 ABG O2 Saturation 98.2 % (95-100) 10/06/16 03:15 Calcium 9.0 MG/DL (8.5-10.1) 10/06/16 03:41 Phosphorus 3.0 MG/DL (2.5-4.9) 10/06/16 03:41 Magnesium 2.6 MG/DL (1.8-2.4) H 10/06/16 03:41 Assessment and Plan (1) Renal insufficiency Status: Acute Assessment and plan: Watch volume which will be hard to assess. Dose adjust Vancomycin. Agree with no MILDRED inhibitor. Current Visit: No (2) Small bowel obstruction Status: Acute Assessment and plan: Being centrally hyperalimented. Current Visit: No (3) Diabetes mellitus Status: Chronic Current Visit: Yes
[2016-10-06] MEDS: FAT EMULSION 20% 250 ML IV SCH (14:10)
--- NOTE | 2016-10-06 14:36 | General Surgery Progress Note ---
Assessment and Plan (1) SBO (small bowel obstruction) Status: Resolved Assessment and plan: Resolved. Patient passed bowel movement yesterday. Has her TPN and she is not tolerating diet due to aspiration. TPN has been initiated. Current Visit: No Subjective Patient reports: Present: other (Patient was held n.p.o. with concerns for aspiration. This confirmed by bronchoscopy this morning. Patient remains n.p.o. TPN has been initiated. Patient has bowel movement documented yesterday.) Exam - Constitutional Vitals: Period Temp Pulse Resp BP Sys/Quezada Pulse Ox Last 24 Hr 96.6 F-97.8 F 58-83 14-39 89-138/43-85 95-100 General appearance: no acute distress - Head Head exam: Present: normal inspection, normocephalic - Eye Eye exam: Absent: conjunctival injection, scleral icterus - GI/Abdominal GI/Abdominal exam: Present: soft. Absent: distended, tenderness - Skin Skin exam: Present: normal color, warm Results - Labs CBC & BMP: 10/06/16 03:41 10/06/16 03:41
[2016-10-06] MEDS: ENOXAPARIN 40 MG/0.4 ML SYRINGE SUBCUT SCH (16:04)
[2016-10-06] MEDS: FUROSEMIDE 40 MG/4 ML VIAL IV SCH (16:04)
[2016-10-06] MEDS: TRACE ELEMENTS IV SCH (16:55)
[2016-10-06] MEDS: [UNRECOGNIZED DRUG - OTHER] IV SCH (16:55)
[2016-10-06] MEDS: MULTIVITAMIN IV SCH (16:55)
[2016-10-06] MEDS: INSULIN REGULAR IV SCH (16:55)
--- NOTE | 2016-10-06 17:10 | Hospitalist Progress Note ---
Assessment and Plan - Time spent with patient Time spent with patient: Greater than 30 minutes (35 minutes with this patient) (1) Small bowel obstruction Status: Acute Assessment and plan: Continues to be evaluated by surgery. Current Visit: No (2) Cardiomyopathy Problem details: The patient has a mild cardiomyopathy with a left ventricular ejection fraction of 40-45%. She underwent a cardiac ischemic screening a couple of years ago which showed no evidence of cardiac ischemia. She's not had any significant clinical change from a cardiac standpoint since that time. Status: Chronic Current Visit: No (3) COPD (chronic obstructive pulmonary disease) Status: Chronic Current Visit: Yes Qualifiers: COPD type: chronic bronchitis Chronic bronchitis type: simple Qualified Code(s): J41.0 - Simple chronic bronchitis (4) Diabetes mellitus Status: Chronic Current Visit: Yes Qualifiers: Diabetes mellitus type: type 2 Chronic kidney disease stage: stage 2 (mild ) (5) SBO (small bowel obstruction) Status: Resolved Current Visit: No (6) On mechanically assisted ventilation Status: Acute Current Visit: Yes (7) Hypertension Status: Chronic Current Visit: Yes Qualifiers: Hypertension type: essential hypertension Qualified Code(s): I10 - Essential (primary) hypertension (8) Pneumonia Status: Acute Assessment and plan: Continue with broad-spectrum antibiotics. Appreciate input from Dr. Fabian Pool and Dr. Quiros. Current Visit: Yes (9) Acute respiratory failure Status: Acute Assessment and plan: Remains ventilated. Pulmonary following. Current Visit: Yes Qualifiers: Respiratory failure complication: hypoxia and hypercapnia Qualified Code(s) : J96.01 - Acute respiratory failure with hypoxia; J96.02 - Acute respiratory failure with hypercapnia Hospitalist: Subjective Interval history: The patient had bronc done today again with signs of aspiration pneumonia. She has been evaluated by infectious disease who recommended further broadening of antibiotic coverage. WBC continues to be elevated. Continue with ventilator management. Chest x-ray shows some improvement. Consider options for PEG tube placement. Exam - Constitutional Vitals: Period Temp Pulse Resp BP Sys/Quezada Pulse Ox Last 24 Hr 96.6 F-97.6 F 58-77 14-39 89-138/41-85 96-100 General appearance: no acute distress, other (On ventilator) - Head Head exam: Present: normal inspection - Respiratory Respiratory exam: Present: clear to auscultation bilaterally - Cardiovascular Cardiovascular exam: Present: regular rate and rhythm - GI/Abdominal GI/Abdominal exam: Present: normal bowel sounds Results - Labs CBC & BMP: 10/06/16 03:41 10/06/16 03:41
[2016-10-06] MEDS: VANCOMYCIN INJ 1,000 MG in SODIUM CHLORIDE 0.9% 250 ML IV SCH (21:36)
[2016-10-07] MEDS: INSULIN LISPRO 100 UNIT/ML SUBCUT SCH ×4 (00:50→18:09)
[2016-10-07] MEDS: ALBUTEROL/IPRATROPIUM 3 ML NEB RESP TX SCH ×6 (03:05→23:30)
[2016-10-07 03:14] LABS: Allen Test Positive; Pt O2 Delivery Device BIPAP
[2016-10-07 03:16] LABS: ABG Base Excess -4.5 MMOL/L (-2.5-2.5); ABG HCO3 20.6 MMOL/L (20-26); ABG Oxygen Saturation 98.4 % (95-100); ABG PCO2 38.1 MM HG (35-48); ABG PH 7.343 (7.35-7.45); ABG TCO2 19.4 MMOL/L (23-27)
[2016-10-07 03:46] LABS: Basophils % 0.1 % (0.0-0.8); Hematocrit 25.8 VOL% (35.7-47.0); Hemoglobin 8.4 GM/DL (12.0-16.0); Immature Granulocytes % 1.5 %; Immature Granulocytes Absolute 0.51 #; Lymphocytes # 0.7 10*3/uL (1.4-4.0); Lymphocytes % 2.1 % (21.3-54.2); Mean Corpuscular HGB Conc 32.6 GM/DL (32-36); Mean Corpuscular Hemoglobin 29 PG (27-34); Mean Corpuscular Volume 88.4 FL (87-102); Mean Platelet Volume 12.2 FL (9.6-12.0); Monocytes # 1.7 10*3/uL (0.11-0.8); Monocytes % 5.3 % (1.7-12.7); Neutrophils # 29.9 10*3/uL (1.4-7.4); Platelet Count 409 T/CUMM (130-400); Red Blood Count 2.92 MC/CUMM (3.8-5.5); Red Cell Distribution Width 15.7 % (9.3-17.3); White Blood Count 32.9 T/CUMM (4-12)
[2016-10-07 04:11] LABS: Calcium 8.6 MG/DL (8.5-10.1); Magnesium 2.6 MG/DL (1.8-2.4); Osmolality,Calculated 308.1 MOS/KG (273-304); Potassium 5.2 MMOL/L (3.5-5.1)
[2016-10-07] MEDS: ALUMINUM/MAGNES/SIMETH MAX STR 30 ML UDCUP PER TUBE SCH ×2 (05:04→09:29)
[2016-10-07 05:07] LABS: Band Neutrophils 2 % (0-10); Hypochromasia 2+; Lymphocytes 2 % (20-55); Platelet Estimate Increased; Segmented Neutrophils 93 % (50-85); Total Cells Counted 100
[2016-10-07] MEDS: methylPREDNISolone SOD SUC 40 MG/1 ML VIAL IV SCH ×2 (06:30→18:15)
--- NOTE | 2016-10-07 07:01 | XRay Report ---
Exam: XR chest 1V portable Date: 10/07/2016 4:00 AM Indication: Follow-up Comparison: 10/04/2016 Technical: AP portable Findings: Cardiac pacing device is in place from a right-sided approach with a right-sided PICC line also suspected or central venous catheter not otherwise clarified. Cardiomegaly is present. ASVD is present. Patchy interstitial alveolar densities are present with low volume effusions left greater than right. No pneumothorax. External cardiac leads are present. Impression: 1. No significant interval change in the cardiac pacing device or central catheter 2. Cardiomegaly with low volume effusions alveolar edema interstitial densities similar to previous study with some thickening of the minor fissure PROCEDURE INTERPRETED AT [facility] DEPARTMENT OF RADIOLOGY Final Report Signed by: Dr. Sourav Rockwell
--- NOTE | 2016-10-07 09:03 | Nephrology Progress Note ---
Nephrology - PN: Subj Interval history: Ms. Oconnell is seen in follow-up of her renal impairment. Her creatinine is stable at 1.6 with an elevated BUN. Several factors are contributing to the elevated BUN including her steroids. She does not appear to be volume depleted. She has no edema blood pressure stable. She is alert today and appropriate. She remains quite weak and continues to receive intravenous hyperalimentation will continue to follow for now but I make no change in her current therapy. Note is made of her low-dose lisinopril use and ongoing diuretics but her volume status appears to be appropriate. Exam (PN)-Nephrology - Vital Signs Vital signs: Period Temp Pulse Resp BP Sys/Quezada Pulse Ox Last 24 Hr 97.4 F-98.6 F 63-77 10-39 90-138/36-85 95-100 - Lab 10/07/16 03:20 10/07/16 03:20 Most recent lab results ABG pH 7.343 (7.35-7.45) L 10/07/16 02:50 ABG pCO2 38.1 MM HG (35-48) 10/07/16 02:50 ABG pO2 106.0 MM HG (80-95) H 10/07/16 02:50 ABG HCO3 20.6 MMOL/L (20-26) 10/07/16 02:50 ABG O2 Saturation 98.4 % (95-100) 10/07/16 02:50 Calcium 8.6 MG/DL (8.5-10.1) 10/07/16 03:20 Phosphorus 3.0 MG/DL (2.5-4.9) 10/06/16 03:41 Magnesium 2.6 MG/DL (1.8-2.4) H 10/07/16 03:20 Assessment and Plan (1) Renal insufficiency Status: Acute Assessment and plan: Watch volume which will be hard to assess. Dose adjust Vancomycin. Agree with no MILDRED inhibitor. Current Visit: No (2) Small bowel obstruction Status: Acute Assessment and plan: Being centrally hyperalimented. Current Visit: No (3) Diabetes mellitus Status: Chronic Current Visit: Yes Qualifiers: Diabetes mellitus type: type 2 Chronic kidney disease stage: stage 2 (mild )
--- NOTE | 2016-10-07 09:13 | Cardiology Progress Note ---
Stanislaw Foley April, RN, am scribing for, and in the presence of, Gato Mcgill MD 09:13. Assessment and Plan - Time spent with patient Time spent with patient: (Minimal) (1) Elevated troponin Status: Acute Assessment and plan: Initial assessment and plan 10/03/2016: 1. 81-year-old female with history of mild nonischemic cardiomyopathy followed by Dr. Petty with history of small bowel obstruction with dehydration apparently significant GERD, and history of remote pacemaker placement weaned off ventilator 2. Last week she had trivial troponin elevation of 0.05, 0.06 which are really not elevated particularly given her renal dysfunction of the time. Renal function is improved now with creatinine of approximately 1.3. 3. Apparent history of asthma/bronchospasm; start low-dose Bystolic 2.5 mg daily; we could consider adding low-dose MILDRED inhibitor or ARB later. Her EF was a little below her previous 45% last week when echo showed EF 35-40%. She has chronic LBBB 4. Previously was on spironolactone 25 mg daily, but given her creatinine was up 3 last week would hold off on this. Assessment and plan 10/04/2016: 1. Given left-sided heart failure with chest x-ray suggesting pulmonary edema and very high BNP with history of cardiomyopathy (EF 35-40%), adding nitroglycerin infusion to decrease preload and blood pressure 2. Mild hyperkalemia noted with potassium 5.6 3. Leukocytosis, having received steroid therapy 4. Would add daily Lasix to treat volume overload and hyperkalemia Assessment and plan 10/05/2016: 1. Strangely Ms. Oconnell's hypertension is resolved and she actually had some hypotension this morning, which is improved after stopping IV nitroglycerin. 2. No need to add nitrates and hydralazine at this point, given hypertension 3. Still some tachypnea postextubation 4. We will follow with you Assessment and plan 10/06/2016: 1. Ms. Oconnell looks a little better than yesterday with still appears a little dyspneic 2. Occasional modest hypotension noted since yesterday; she is on very low- dose MILDRED inhibitor and beta-tom for her cardiomyopathy. 3. Still appears to have some left-sided heart failure with prerenal azotemia and elevated BNP; would increase Lasix slightly to 40 mg IV twice daily 4. Renal function is been stable the last few days. Assessment and plan 10/07/2016: 1. Mrs. Oconnell is still a bit dyspneic but little change from yesterday 2. She is on low-dose beta-tom and MILDRED inhibitor which cannot be up titrated due to her borderline blood pressure, and heart rate in the 60s 3. Nonischemic cardiomyopathy with EF 35-40% with chronic LBBB 4. We will not add spironolactone given her creatinine is 1.6 and previously had creatinine over 3 when she was on it. Current Visit: Yes (2) Dehydration Status: Acute Current Visit: Yes (3) Chronic renal insufficiency Status: Chronic Current Visit: Yes Qualifiers: Chronic kidney disease stage: stage 2 (mild) Qualified Code(s): N18.2 - Chronic kidney disease, stage 2 (mild) (4) Hypertension Status: Chronic Current Visit: Yes Qualifiers: Hypertension type: essential hypertension Qualified Code(s): I10 - Essential (primary) hypertension (5) Nonischemic cardiomyopathy Status: Chronic Current Visit: Yes (6) COPD (chronic obstructive pulmonary disease) Status: Chronic Current Visit: Yes Qualifiers: COPD type: chronic bronchitis Chronic bronchitis type: simple Qualified Code(s): J41.0 - Simple chronic bronchitis (7) Diabetes mellitus Status: Chronic Current Visit: Yes Qualifiers: Diabetes mellitus type: type 2 Chronic kidney disease stage: stage 2 (mild ) (8) History of breast cancer Status: Chronic Current Visit: No (9) Status post placement of cardiac pacemaker Status: Chronic Current Visit: Yes (10) On mechanically assisted ventilation Status: Acute Current Visit: Yes Cardiology - PN: Subj Interval history: Payroll And Benefits Coordinator: Dr. Petty Ms. Oconnell is seen resting in bed in the intensive care unit. She is awake and alert but will not answer any of my questions. She will follow simple commands. Oxygen use via mask, oxygen saturation is currently 100%. property assessment monitor currently shows sinus rhythm with heart rates in the 60s. Blood pressure currently 109/55. BNP this morning was 730. She is now on Lasix 40 mg IV twice daily. Creatinine remains elevated at 1.6, potassium elevated at 5.2. She is NPO and is now on TPN. Exam (Progress Note) - Constitutional Vitals: Period Temp Pulse Resp BP Sys/Quezada Pulse Ox Last 24 Hr 97.4 F-98.6 F 61-77 10-39 90-138/36-85 95-100 General appearance: mild distress, over weight Exam: General appearance: No acute distress, morbidly obese - Head Head exam: Absent: abrasion, hematoma - Eye Eye exam: Absent: periorbital swelling, laceration to eyelids - Respiratory Respiratory exam: Present: Clear to auscultation, oxygen via mask. Absent: accessory muscle use - Cardiovascular Cardiovascular exam: Present: regular rate and rhythm. Absent: rubs - GI/Abdominal GI/Abdominal exam: Present: hypoactive bowel sounds, soft. Absent: distended - Neurological Exam Neurological exam: Present: Awake and alert, but will not respond to questions - Psychiatric Psychiatric exam: Present: Normal affect, normal mood. - Skin Skin exam: Present: warm, dry - Head Head exam: Present: normal inspection, normocephalic, atraumatic - Respiratory Respiratory exam: Present: rales. Absent: stridor, wheezes - Cardiovascular Cardiovascular exam: Present: regular rate and rhythm. Absent: diastolic murmur , rubs - GI/Abdominal GI/Abdominal exam: Present: soft. Absent: tenderness - Extremities Exam Extremities exam: Present: edema Result/EKG - Labs CBC & BMP: 10/07/16 03:20 10/07/16 03:20 Lab Results: I have reviewed the past 24 hour labs Labs: Laboratory Results - last 24 hr 10/06/16 10/06/16 10/07/16 12:05 17:59 00:12 WBC RBC Hgb Hct MCV MCH MCHC RDW Plt Count MPV Neut % (Auto) Lymph % (Auto) [place] % (Auto) Eos % (Auto) Baso % (Auto) Neut # (Auto) Lymph # (Auto) [place] # (Auto) Eos # (Auto) Baso # (Auto) Total Counted Immature Gran % Nucleated RBC % Immature Gran # Segmented Neutrophils Band Neutrophils Lymphocytes Monocytes Nucleated RBCs # Platelet Estimate Hypochromasia ABG pH ABG pCO2 ABG pO2 ABG HCO3 ABG Total CO2 ABG O2 Saturation ABG Base Excess FiO2 Sodium Potassium Chloride Carbon Dioxide Anion Gap BUN Creatinine GFR Calculation BUN/Creatinine Ratio Glucose POC Glucose 193 H 247 H 238 H Calculated Osmolality Calcium Magnesium B-Natriuretic Peptide 10/07/16 10/07/16 10/07/16 02:50 03:20 03:20 WBC 32.9 H RBC 2.92 L Hgb 8.4 L Hct 25.8 L MCV 88.4 MCH 29 MCHC 32.6 RDW 15.7 Plt Count 409 H MPV 12.2 H Neut % (Auto) 91.0 H Lymph % (Auto) 2.1 L [place] % (Auto) 5.3 Eos % (Auto) 0.0 Baso % (Auto) 0.1 Neut # (Auto) 29.9 H Lymph # (Auto) 0.7 L [place] # (Auto) 1.7 H Eos # (Auto) 0.0 Baso # (Auto) 0.0 Total Counted 100 Immature Gran % 1.5 Nucleated RBC % 0.0 Immature Gran # 0.51 Segmented Neutrophils 93 H Band Neutrophils 2 Lymphocytes 2 L Monocytes 3 Nucleated RBCs # 0.00 Platelet Estimate Increased Hypochromasia 2+ ABG pH 7.343 L ABG pCO2 38.1 ABG pO2 106.0 H ABG HCO3 20.6 ABG Total CO2 19.4 L ABG O2 Saturation 98.4 ABG Base Excess -4.5 L FiO2 28.00 Sodium Potassium Chloride Carbon Dioxide Anion Gap BUN Creatinine GFR Calculation BUN/Creatinine Ratio Glucose POC Glucose Calculated Osmolality Calcium Magnesium B-Natriuretic Peptide 730 H 10/07/16 10/07/16 03:20 05:32 WBC RBC Hgb Hct MCV MCH MCHC RDW Plt Count MPV Neut % (Auto) Lymph % (Auto) [place] % (Auto) Eos % (Auto) Baso % (Auto) Neut # (Auto) Lymph # (Auto) [place] # (Auto) Eos # (Auto) Baso # (Auto) Total Counted Immature Gran % Nucleated RBC % Immature Gran # Segmented Neutrophils Band Neutrophils Lymphocytes Monocytes Nucleated RBCs # Platelet Estimate Hypochromasia ABG pH ABG pCO2 ABG pO2 ABG HCO3 ABG Total CO2 ABG O2 Saturation ABG Base Excess FiO2 Sodium 135 L Potassium 5.2 H Chloride 103 Carbon Dioxide 23 Anion Gap 14.2 BUN 114 H D Creatinine 1.60 H GFR Calculation 39 BUN/Creatinine Ratio 71.00 H Glucose 159 H POC Glucose 201 H Calculated Osmolality 308.1 H Calcium 8.6 Magnesium 2.6 H B-Natriuretic Peptide - Diagnostic Findings Procedure: Chest x-ray: report reviewed by me - EKG EKG results: interpreted by me EKG shows: sinus rhythm I, Joransen,Gato Eusebio, MD, personally performed the services described in this documentation, ascribed by Paris Dover RN in my presence, and it is both accurate and complete .
[2016-10-07] MEDS: PHENYLEPHRINE DRIP 40 MG/250 ML PREMIX IV SCH (09:18)
[2016-10-07] MEDS: FUROSEMIDE 40 MG/4 ML VIAL IV SCH ×2 (09:19→16:42)
[2016-10-07] MEDS: MEROPENEM 1,000 MG in SODIUM CHLORIDE 0.9% 100 ML IV SCH ×2 (09:20→20:49)
[2016-10-07] MEDS: MUPIROCIN 2% OINT 22 GM TUBE TOP SCH ×2 (09:20→20:50)
[2016-10-07] MEDS: NEBIVOLOL 5 MG TABLET PO SCH (09:20)
[2016-10-07] MEDS: COLLAGENASE OINT 30 GM TUBE TOP SCH (09:21)
[2016-10-07] MEDS: LISINOPRIL 2.5 MG TABLET PO SCH ×2 (09:21→20:49)
[2016-10-07] MEDS: DESITIN 4OZ/NYSTATIN 15 GRAM MIXTURE PASTE TOP SCH ×2 (09:21→20:50)
[2016-10-07] MEDS: NITROGLYCERIN DRIP 50 MG/250 ML BOTTLE IV SCH (09:21)
[2016-10-07] MEDS: INSULIN GLARGINE 100 UNIT/ML SUBCUT SCH (09:22)
--- NOTE | 2016-10-07 10:42 | Infectious Disease Progress ---
Assessment and Plan (1) Pneumonia Status: Acute Assessment and plan: MRSA and E. coli cultured previously. FOB yesterday revealed thick tenacious secretions in airways. Pulmonary status somewhat improved today. No organisms seen on most recent Gram stain, culture pending. Her peripheral WBCs still quite high. I think steroids may be contributing. Recommendations: Continue meropenem and vancomycin and follow-up cultures. Continue to monitor white blood cell count. Current Visit: Yes (2) COPD (chronic obstructive pulmonary disease) Status: Chronic Current Visit: Yes Qualifiers: COPD type: chronic bronchitis Chronic bronchitis type: simple Qualified Code(s): J41.0 - Simple chronic bronchitis (3) Chronic renal insufficiency Status: Chronic Assessment and plan: Creatinine relatively stable over the past few days. Current Visit: Yes Qualifiers: Chronic kidney disease stage: stage 2 (mild) Qualified Code(s): N18.2 - Chronic kidney disease, stage 2 (mild) (4) Diabetes mellitus Status: Chronic Current Visit: Yes Qualifiers: Diabetes mellitus type: type 2 Chronic kidney disease stage: stage 2 (mild ) (5) Hypertension Status: Chronic Current Visit: Yes Qualifiers: Hypertension type: essential hypertension Qualified Code(s): I10 - Essential (primary) hypertension Infectious Disease - PN: Subj Interval history: Patient has been off BiPAP since yesterday, it seems the bronchoscopy she had yesterday which with clearing of the secretions has helped her respiratory status. She has not had fever. She has been easily arousable following simple commands. Infectious Disease Exam (PN) - Constitutional Vitals: Temp Pulse Resp BP Pulse Ox 98.6 F 69 17 114/68 100 10/07/16 04:00 10/07/16 08:01 10/07/16 08:01 10/07/16 08:00 10/07/16 08:01 General appearance: mild distress, over weight Exam: General appearance: Easily arousable, she snores very loudly - Eye Eye exam: Present: EOMI. no icterus Pupils: Present: [place] - Respiratory Respiratory exam: Loud transmitted sounds from upper airway but lungs actually sound clear - Cardiovascular Cardiovascular exam: regular rate and rhythm, no murmurs - GI/Abdominal GI/Abdominal exam: normal bowel sounds, soft, non-tender, no organomegaly or mass - Extremities Exam Extremities exam: no edema - Skin Skin exam: no rash Results - Labs CBC & BMP: 06/16/17 03:20 10/07/16 03:20 Lab Results: I have reviewed the past 24 hour labs
--- NOTE | 2016-10-07 11:16 | Pathology Report from [facility] ---
[facility] – [place] ACCESSION # : [id number] PATIENT NAME : Ritika Oconnell ORDERING DR : SELENA HOUSTON MD CLINICAL HX: Aspiration POST-OP DX: Same SPECIMEN INFO: Washing,Bronchial,MAURICE - 15 mls light farr, cloudy with dark farr chunks CLASS: II CLASS COMMENTS: Benign respiratory epithelium and squamous metaplasia.CELL BLOCK : Same. CLASS LEGEND: CLASS 0 Material inadequate for diagnosis because of (see comment) CLASS I Absence of atypical or abnormal cells CLASS II Atypical Cytology but no evidence of malignancy CLASS III Cytology suggestive of but not conclusive for malignancy CLASS IV Cytology strongly suggestive of malignancy CLASS V Cytology conclusive for malignancy COLLECTED DATE: 10/06/2016 [facility] REPORT DATE: 10/07/2016 ELECTRONICALLY SIGNED BY: Javier Bingham M.D. 10/07/2016 - 9:14:49 [facility]TDD
--- NOTE | 2016-10-07 12:16 | General Surgery Progress Note ---
Assessment and Plan - Time spent with patient Time spent with patient: Less than 30 minutes (1) Small bowel obstruction Status: Acute Assessment and plan: She does not appear to be obstructed. She is not having abdominal pain or nausea or vomiting. There is concern about aspiration she has pneumonia. She is obviously a very poor surgical candidate. I would manage her conservatively as you are doing. Current Visit: No Subjective Patient reports: Present: feels better, flatus, bowel movement (Small). Absent : still having pain, nausea, vomiting Exam - Constitutional Vitals: Period Temp Pulse Resp BP Sys/Quezada Pulse Ox Last 24 Hr 97.4 F-98.6 F 62-72 10-33 90-135/36-68 95-100 General appearance: no acute distress - Eye Eye exam: Absent: scleral icterus - Respiratory Respiratory exam: Absent: accessory muscle use - GI/Abdominal GI/Abdominal exam: Present: distended (Mildly), soft. Absent: guarding, mass, tenderness, rebound - Neurological Exam Neurological exam: Present: alert, oriented X3 Results - Labs CBC & BMP: 10/07/16 03:20 10/07/16 03:20 Lab Results: I have reviewed the past 24 hour labs
--- NOTE | 2016-10-07 12:57 | Hospitalist Progress Note ---
Assessment and Plan (1) Small bowel obstruction Status: Resolved Assessment and plan: This has been ruled out by surgery Current Visit: No (2) Cardiomyopathy Problem details: The patient has a mild cardiomyopathy with a left ventricular ejection fraction of 40-45%. She underwent a cardiac ischemic screening a couple of years ago which showed no evidence of cardiac ischemia. She's not had any significant clinical change from a cardiac standpoint since that time. Status: Chronic Current Visit: No (3) COPD (chronic obstructive pulmonary disease) Status: Chronic Current Visit: Yes Qualifiers: COPD type: chronic bronchitis Chronic bronchitis type: simple Qualified Code(s): J41.0 - Simple chronic bronchitis (4) Diabetes mellitus Status: Chronic Current Visit: Yes Qualifiers: Diabetes mellitus type: type 2 Chronic kidney disease stage: stage 2 (mild ) (5) On mechanically assisted ventilation Status: Acute Current Visit: Yes (6) Hypertension Status: Chronic Current Visit: Yes Qualifiers: Hypertension type: essential hypertension Qualified Code(s): I10 - Essential (primary) hypertension (7) Pneumonia Status: Acute Assessment and plan: Continue with broad-spectrum antibiotics. Appreciate input from Dr. Fabian Pool and Dr. Quiros. Current Visit: Yes (8) Acute respiratory failure Status: Acute Assessment and plan: Remains ventilated. Pulmonary following. Current Visit: Yes Qualifiers: Respiratory failure complication: hypoxia and hypercapnia Qualified Code(s) : J96.01 - Acute respiratory failure with hypoxia; J96.02 - Acute respiratory failure with hypercapnia (9) Decubitus skin ulcer Status: Acute Current Visit: Yes Qualifiers: Pressure ulcer location: sacral region Pressure ulcer stage: stage 2 Qualified Code(s): L89.152 - Pressure ulcer of sacral region, stage 2 Hospitalist: Subjective Interval history: The patient is resting. She has been evaluated by surgery at this morning and small bowel obstruction has been ruled out. She has been afebrile vitals are stable. Elevated white count noted she is on broad-spectrum antibiotics. At this time continue with conservative management for this patient. Awaiting for LTAC acceptance. Exam - Constitutional Vitals: Period Temp Pulse Resp BP Sys/Quezada Pulse Ox Last 24 Hr 97.4 F-98.6 F 62-72 10-33 90-135/36-68 95-100 General appearance: over weight, other (Frail lady) - Head Head exam: Present: normal inspection - Respiratory Respiratory exam: Present: clear to auscultation bilaterally - Cardiovascular Cardiovascular exam: Present: regular rate and rhythm - GI/Abdominal GI/Abdominal exam: Present: normal bowel sounds - Neurological Exam Neurological exam: Present: alert - Skin Skin exam: Present: other (Sacral breakdown noted) Results - Labs CBC & BMP: 10/07/16 03:20 10/07/16 03:20
[2016-10-07] MEDS: FAT EMULSION 20% 250 ML IV SCH (15:30)
[2016-10-07] MEDS: ENOXAPARIN 40 MG/0.4 ML SYRINGE SUBCUT SCH (16:42)
[2016-10-07] MEDS: TRACE ELEMENTS IV SCH (16:53)
[2016-10-07] MEDS: MULTIVITAMIN IV SCH (16:53)
[2016-10-07] MEDS: [UNRECOGNIZED DRUG - OTHER] IV SCH (16:53)
[2016-10-07] MEDS: INSULIN REGULAR IV SCH (16:53)
[2016-10-07] MEDS: VANCOMYCIN INJ 1,000 MG in SODIUM CHLORIDE 0.9% 250 ML IV SCH (21:31)
[2016-10-08] MEDS: INSULIN LISPRO 100 UNIT/ML SUBCUT SCH ×4 (01:20→18:00)
[2016-10-08] MEDS: PHENYLEPHRINE DRIP 40 MG/250 ML PREMIX IV SCH (02:41)
[2016-10-08] MEDS: ALBUTEROL/IPRATROPIUM 3 ML NEB RESP TX SCH ×6 (03:52→23:43)
[2016-10-08 03:58] LABS: ABG Base Excess -7.1 MMOL/L (-2.5-2.5); ABG HCO3 18.6 MMOL/L (20-26); ABG PCO2 35.7 MM HG (35-48); ABG PO2 76.2 MM HG (80-95); ABG TCO2 17.2 MMOL/L (23-27); Allen Test Positive; Pt O2 Delivery Device BIPAP
[2016-10-08 05:08] LABS: Basophils % 0.1 % (0.0-0.8); Hematocrit 27.1 VOL% (35.7-47.0); Immature Granulocytes % 1.9 %; Immature Granulocytes Absolute 0.72 #; Lymphocytes # 0.8 10*3/uL (1.4-4.0); Lymphocytes % 2.2 % (21.3-54.2); Mean Corpuscular HGB Conc 33.2 GM/DL (32-36); Mean Corpuscular Hemoglobin 29 PG (27-34); Mean Corpuscular Volume 87.7 FL (87-102); Mean Platelet Volume 12.1 FL (9.6-12.0); Monocytes # 2.2 10*3/uL (0.11-0.8); Monocytes % 5.8 % (1.7-12.7); Neutrophils # 34.6 10*3/uL (1.4-7.4); Platelet Count 414 T/CUMM (130-400); Red Blood Count 3.09 MC/CUMM (3.8-5.5); Red Cell Distribution Width 15.9 % (9.3-17.3); White Blood Count 38.4 T/CUMM (4-12)
[2016-10-08 05:44] LABS: Calcium 8.6 MG/DL (8.5-10.1); Magnesium 2.5 MG/DL (1.8-2.4); Osmolality,Calculated 314.2 MOS/KG (273-304)
[2016-10-08 06:06] LABS: Hypochromasia 1+; Lymphocytes 5 % (20-55); Segmented Neutrophils 91 % (50-85); Total Cells Counted 100
[2016-10-08 06:07] LABS: Microcytosis Slight; Platelet Estimate Increased
--- NOTE | 2016-10-08 07:05 | XRay Report ---
XR chest 1V portable Indication: "Ventilator" Chest one view: Comparison yesterday shows no endotracheal tube. Central line, pacemaker device, cardiomegaly, low lung volumes and diffusely coarsened interstitial markings of the lungs are stable. There continues to be obscuration of the left lung base. Impression: No change. PROCEDURE INTERPRETED AT [facility] DEPARTMENT OF RADIOLOGY Final Report Signed by: Gelacio Swanson M.D.
--- NOTE | 2016-10-08 07:45 | Pulmonology Progress Note ---
Pulmonary - PN: Subj Interval history: 81-year-old -[place] female admitted for small bowel obstruction and septic shock requiring mechanical ventilation due to aspiration pneumonia from E. coli and staph aureus. Patient has been extubated for many days and doing well on nasal cannula during the day and BiPAP at night. No acute issues overnight. Exam (Progress Note) - Constitutional Vitals: Period Temp Pulse Resp BP Sys/Quezada Pulse Ox Last 24 Hr 98.2 F-98.6 F 60-73 13-29 92-139/37-69 93-100 General appearance: normal weight - Head Head exam: Present: normal inspection, normocephalic, atraumatic - Eye Eye exam: Present: EOMI - ENT ENT exam: Present: normal exam - Neck Neck exam: Present: normal inspection - Respiratory Respiratory exam: Present: rhonchi (Scattered rhonchi bilaterally) - Cardiovascular Cardiovascular exam: Present: regular rate and rhythm - GI/Abdominal GI/Abdominal exam: Present: normal bowel sounds - Extremities Exam Extremities exam: Present: normal inspection - Neurological Exam Neurological exam: Present: alert - Skin Skin exam: Present: normal color, warm, dry Results - Labs CBC & BMP: 10/08/16 04:55 10/08/16 04:55 Labs: Blood cultures growing yeast. BAL growing MRSA and E. coli - Diagnostic Findings Procedure: Chest x-ray: image reviewed by me, report reviewed by me (Unchanged from yesterday) Assessment and Plan (1) Pneumonia Status: Acute Assessment and plan: Right lower lobe aspiration pneumonia due to E. coli and MRSA. Radiographically and clinically improving. ID following. Continue current management. Current Visit: Yes Qualifiers: Pneumonia type: due to methicillin-sensitive Staphylococcus aureus (MSSA) Laterality: right Lung location: lower lobe of lung Qualified Code(s): J15.211 - Pneumonia due to Methicillin susceptible Staphylococcus aureus (2) Fungemia Status: Acute Assessment and plan: Blood cultures today noted to be growing yeast. ID following. Patient will need initiation of antifungals and removal of central line. Defer antifungal selection to ID. Recommend repeat blood cultures today. Current Visit: Yes (3) COPD (chronic obstructive pulmonary disease) Status: Chronic Assessment and plan: No evidence of wheezing on exam today. Patient appears improved. Will reduce steroid dose today to 40 mg once a day given finding of fungemia. Current Visit: Yes Qualifiers: COPD type: chronic bronchitis Chronic bronchitis type: simple Qualified Code(s): J41.0 - Simple chronic bronchitis (4) Small bowel obstruction Status: Acute Current Visit: No (5) Leukocytosis Status: Acute Assessment and plan: Likely multifactorial from fungemia, aspiration pneumonia, and steroids. Treat fungemia as above and will reduce steroid dose. Current Visit: Yes
[2016-10-08] MEDS ORDERED: FLUCONAZOLE INJ 200 MG in PREMIX 1 EACH IV ONE (09:23)
--- NOTE | 2016-10-08 09:24 | Hospitalist Progress Note ---
Assessment and Plan (1) Fungemia Status: Acute Assessment and plan: Start Diflucan. Replace TLC. Current Visit: Yes (2) Leukocytosis Status: Acute Current Visit: Yes (3) Pneumonia Status: Acute Assessment and plan: Continue abx- vanco and merrem. for E. Coli and MRSA Current Visit: Yes Qualifiers: Pneumonia type: due to methicillin-sensitive Staphylococcus aureus (MSSA) Laterality: right Lung location: lower lobe of lung Qualified Code(s): J15.211 - Pneumonia due to Methicillin susceptible Staphylococcus aureus (4) Chronic renal insufficiency Status: Chronic Current Visit: Yes Qualifiers: Chronic kidney disease stage: stage 2 (mild) Qualified Code(s): N18.2 - Chronic kidney disease, stage 2 (mild) (5) Nonischemic cardiomyopathy Status: Chronic Current Visit: Yes Hospitalist: Subjective Interval history: Patient seen and examined. No acute events overnight. Case discussed with nursing staff. Labs reviewed. 3 blood cultures are showing yeast. White count continues to be over 35,000. Case discussed with post doc fellowship station engineer chief and nursing staff at the bedside. Heart rate and blood pressure are stable. She is receiving IV antibiotics for treatment of pneumonia. I plan to remove her triple-lumen catheter and replace it. Exam - Constitutional Vitals: Period Temp Pulse Resp BP Sys/Quezada Pulse Ox Last 24 Hr 97.5 F-98.6 F 60-73 13-29 92-139/37-69 93-100 Exam: Constitutional System: No distress. No tremulousness. Head: Normocephalic, atraumatic. Ears, Nose and Throat System: No pain or tenderness. No epistaxis or discharge Eyes System: Pupils equal, round, and reactive. Extraocular muscles intact. Neck: Supple, without adenopathy, No jugular venous distention. No thyromegaly, neck mass, or prior surgery apparent. Respiratory System: Chest clear to auscultation with minimal scattered rhonchi. Cardiovascular System: Heart with regular rate and rhythm. No murmur. GI System: Abdomen soft, nontender. Normo active bowel sounds present. Musculoskeletal System: limbs with no pedal edema. Full distal pulses. Neurological System: No discernable sensory deficit. Results - Labs CBC & BMP: 10/08/16 04:55 10/08/16 04:55 Lab Results: I have reviewed the past 24 hour labs - Diagnostic Findings Procedure: Abdominal x-ray: image reviewed by me, report reviewed by me
[2016-10-08] MEDS: FUROSEMIDE 40 MG/4 ML VIAL IV SCH ×2 (09:37→15:51)
[2016-10-08] MEDS: COLLAGENASE OINT 30 GM TUBE TOP SCH (09:38)
[2016-10-08] MEDS: MUPIROCIN 2% OINT 22 GM TUBE TOP SCH ×2 (09:38→21:32)
[2016-10-08] MEDS: DESITIN 4OZ/NYSTATIN 15 GRAM MIXTURE PASTE TOP SCH ×2 (09:38→21:33)
[2016-10-08] MEDS: NEBIVOLOL 5 MG TABLET PO SCH (09:38)
[2016-10-08] MEDS: INSULIN GLARGINE 100 UNIT/ML SUBCUT SCH (09:39)
[2016-10-08] MEDS: MEROPENEM 1,000 MG in SODIUM CHLORIDE 0.9% 100 ML IV SCH ×2 (09:39→21:33)
[2016-10-08] MEDS: LISINOPRIL 2.5 MG TABLET PO SCH ×2 (09:40→21:33)
--- NOTE | 2016-10-08 09:41 | Cardiology Progress Note ---
Assessment and Plan (1) Elevated troponin Status: Acute Assessment and plan: Initial assessment and plan 10/03/2016: 1. 81-year-old female with history of mild nonischemic cardiomyopathy followed by Dr. Petty with history of small bowel obstruction with dehydration apparently significant GERD, and history of remote pacemaker placement weaned off ventilator 2. Last week she had trivial troponin elevation of 0.05, 0.06 which are really not elevated particularly given her renal dysfunction of the time. Renal function is improved now with creatinine of approximately 1.3. 3. Apparent history of asthma/bronchospasm; start low-dose Bystolic 2.5 mg daily; we could consider adding low-dose MILDRED inhibitor or ARB later. Her EF was a little below her previous 45% last week when echo showed EF 35-40%. She has chronic LBBB 4. Previously was on spironolactone 25 mg daily, but given her creatinine was up 3 last week would hold off on this. Assessment and plan 10/04/2016: 1. Given left-sided heart failure with chest x-ray suggesting pulmonary edema and very high BNP with history of cardiomyopathy (EF 35-40%), adding nitroglycerin infusion to decrease preload and blood pressure 2. Mild hyperkalemia noted with potassium 5.6 3. Leukocytosis, having received steroid therapy 4. Would add daily Lasix to treat volume overload and hyperkalemia Assessment and plan 10/05/2016: 1. Strangely Ms. Oconnell's hypertension is resolved and she actually had some hypotension this morning, which is improved after stopping IV nitroglycerin. 2. No need to add nitrates and hydralazine at this point, given hypertension 3. Still some tachypnea postextubation 4. We will follow with you Assessment and plan 10/06/2016: 1. Ms. Oconnell looks a little better than yesterday with still appears a little dyspneic 2. Occasional modest hypotension noted since yesterday; she is on very low- dose MILDRED inhibitor and beta-tom for her cardiomyopathy. 3. Still appears to have some left-sided heart failure with prerenal azotemia and elevated BNP; would increase Lasix slightly to 40 mg IV twice daily 4. Renal function is been stable the last few days. Assessment and plan 10/07/2016: 1. Mrs. Oconnell is still a bit dyspneic but little change from yesterday 2. She is on low-dose beta-tom and MILDRED inhibitor which cannot be up titrated due to her borderline blood pressure, and heart rate in the 60s 3. Nonischemic cardiomyopathy with EF 35-40% with chronic LBBB 4. We will not add spironolactone given her creatinine is 1.6 and previously had creatinine over 3 when she was on it. Assessment and plan October 08, 2016: 1. Ms. Oconnell looks good today and does not appear dyspneic anymore 2. Hemodynamics are stable, but will not increase MILDRED inhibitor beta-tom given her blood pressure systolic about 110 and heart rate in the 60s 3. Compensated acute on systolic heart failure with EF 35-40% 4. No further recommendations for cardiac standpoint; we will sign off 5. Will need rehab/gradual increase activity 6 per follow-up with Dr. 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 in 2 weeks Current Visit: Yes (2) Dehydration Status: Acute Current Visit: Yes (3) Chronic renal insufficiency Status: Chronic Current Visit: Yes Qualifiers: Chronic kidney disease stage: stage 2 (mild) Qualified Code(s): N18.2 - Chronic kidney disease, stage 2 (mild) (4) Hypertension Status: Chronic Current Visit: Yes Qualifiers: Hypertension type: essential hypertension Qualified Code(s): I10 - Essential (primary) hypertension (5) Nonischemic cardiomyopathy Status: Chronic Current Visit: Yes (6) COPD (chronic obstructive pulmonary disease) Status: Chronic Current Visit: Yes Qualifiers: COPD type: chronic bronchitis Chronic bronchitis type: simple Qualified Code(s): J41.0 - Simple chronic bronchitis (7) Diabetes mellitus Status: Chronic Current Visit: Yes Qualifiers: Diabetes mellitus type: type 2 Chronic kidney disease stage: stage 2 (mild ) (8) History of breast cancer Status: Chronic Current Visit: No (9) Status post placement of cardiac pacemaker Status: Chronic Current Visit: Yes (10) On mechanically assisted ventilation Status: Acute Current Visit: Yes Cardiology - PN: Subj Interval history: Ms. Oconnell is resting comfortably has had no complaints. Her hemodynamics are much improved. She has not had dysrhythmia or chest pain complaints. Exam (Progress Note) - Constitutional Vitals: Period Temp Pulse Resp BP Sys/[place] Pulse Ox Last 24 Hr 97.5 F-98.6 F 60-73 13-29 92-139/37-69 93-100 General appearance: no acute distress, over weight - Head Head exam: Present: normal inspection, normocephalic, atraumatic - ENT ENT exam: Present: normal exam - Respiratory Respiratory exam: Present: clear to auscultation bilaterally, rhonchi. Absent: stridor, wheezes - Cardiovascular Cardiovascular exam: Present: regular rate and rhythm. Absent: diastolic murmur , rubs - GI/Abdominal GI/Abdominal exam: Present: soft. Absent: tenderness - Extremities Exam Extremities exam: Absent: edema Result/EKG - Labs CBC & BMP: 10/08/16 04:55 10/08/16 04:55 Labs: Laboratory Results - last 24 hr 10/07/16 10/07/16 10/08/16 12:19 17:55 00:28 WBC RBC Hgb Hct MCV MCH MCHC RDW Plt Count MPV Neut % (Auto) Lymph % (Auto) [place] % (Auto) Eos % (Auto) Baso % (Auto) Neut # (Auto) Lymph # (Auto) [place] # (Auto) Eos # (Auto) Baso # (Auto) Total Counted Immature Gran % Nucleated RBC % Immature Gran # Segmented Neutrophils Lymphocytes Monocytes Nucleated RBCs # Platelet Estimate Hypochromasia Microcytosis ABG pH ABG pCO2 ABG pO2 ABG HCO3 ABG Total CO2 ABG O2 Saturation ABG Base Excess FiO2 Sodium Potassium Chloride Carbon Dioxide Anion Gap BUN Creatinine GFR Calculation BUN/Creatinine Ratio Glucose POC Glucose 233 H 175 H 198 H Calculated Osmolality Calcium Magnesium B-Natriuretic Peptide 10/08/16 10/08/16 10/08/16 03:34 04:55 04:55 WBC 38.4 H RBC 3.09 L Hgb 9.0 L Hct 27.1 L MCV 87.7 MCH 29 MCHC 33.2 RDW 15.9 Plt Count 414 H MPV 12.1 H Neut % (Auto) 90.0 H Lymph % (Auto) 2.2 L [place] % (Auto) 5.8 Eos % (Auto) 0.0 Baso % (Auto) 0.1 Neut # (Auto) 34.6 H Lymph # (Auto) 0.8 L [place] # (Auto) 2.2 H Eos # (Auto) 0.0 Baso # (Auto) 0.0 Total Counted 100 Immature Gran % 1.9 Nucleated RBC % 0.0 Immature Gran # 0.72 Segmented Neutrophils 91 H Lymphocytes 5 L Monocytes 4 Nucleated RBCs # 0.00 Platelet Estimate Increased Hypochromasia 1+ Microcytosis Slight ABG pH 7.320 L ABG pCO2 35.7 ABG pO2 76.2 L ABG HCO3 18.6 L ABG Total CO2 17.2 L ABG O2 Saturation 95.0 ABG Base Excess -7.1 L FiO2 28.00 Sodium Potassium Chloride Carbon Dioxide Anion Gap BUN Creatinine GFR Calculation BUN/Creatinine Ratio Glucose POC Glucose Calculated Osmolality Calcium Magnesium B-Natriuretic Peptide 570 H 10/08/16 10/08/16 04:55 05:21 WBC RBC Hgb Hct MCV MCH MCHC RDW Plt Count MPV Neut % (Auto) Lymph % (Auto) [place] % (Auto) Eos % (Auto) Baso % (Auto) Neut # (Auto) Lymph # (Auto) [place] # (Auto) Eos # (Auto) Baso # (Auto) Total Counted Immature Gran % Nucleated RBC % Immature Gran # Segmented Neutrophils Lymphocytes Monocytes Nucleated RBCs # Platelet Estimate Hypochromasia Microcytosis ABG pH ABG pCO2 ABG pO2 ABG HCO3 ABG Total CO2 ABG O2 Saturation ABG Base Excess FiO2 Sodium 134 L Potassium 5.0 Chloride 104 Carbon Dioxide 21 Anion Gap 14.0 BUN 127 H Creatinine 1.60 H GFR Calculation 40 BUN/Creatinine Ratio 79.00 H Glucose 215 H POC Glucose 205 H Calculated Osmolality 314.2 H Calcium 8.6 Magnesium 2.5 H B-Natriuretic Peptide
[2016-10-08] MEDS: methylPREDNISolone SOD SUC 40 MG/1 ML VIAL IV SCH ×2 (09:46→11:44)
--- NOTE | 2016-10-08 11:18 | General Surgery Progress Note ---
Assessment and Plan (1) Small bowel obstruction Status: Resolved Assessment and plan: She does not appear to be obstructed. She is not having abdominal pain or nausea or vomiting. There is concern about aspiration she has pneumonia. She is obviously a very poor surgical candidate. I would manage her conservatively as you are doing. 10/08: There appears to be no changes regarding her abdomen that I can appreciate. I discussed her case with Dr. Nunez from [facility]. It does not appear that her previous small bowel obstruction is an issue now. I will drop off of the case for now but I am available if needed. Current Visit: No Subjective Patient reports: Present: no new complaints Exam - Constitutional Vitals: Period Temp Pulse Resp BP Sys/[place] Pulse Ox Last 24 Hr 97.5 F-98.6 F 60-73 13-29 96-139/37-69 93-100 General appearance: no acute distress - GI/Abdominal GI/Abdominal exam: Present: soft. Absent: distended, tenderness Results - Labs CBC & BMP: 10/08/16 04:55 10/08/16 04:55
--- NOTE | 2016-10-08 11:40 | XRay Report ---
XR chest 1V portable Indication: Central line placement. Chest one view: Comparison 0257 hours shows Mary Joshi central line that is been advanced such that the tip is now in the high right atrium. No pneumothorax seen. Lung volumes remain low with continued obscuration of the left lung base. Cardiomegaly is stable as well. Impression: New central line. PROCEDURE INTERPRETED AT [facility] DEPARTMENT OF RADIOLOGY Final Report Signed by: Gelacio Swanson M.D.
[2016-10-08] MEDS: METOCLOPRAMIDE 10 MG/2 ML VIAL IV SCH ×3 (12:53→22:58)
[2016-10-08] MEDS: FAT EMULSION 20% 250 ML IV SCH (15:24)
--- NOTE | 2016-10-08 15:46 | XRay Report ---
XR chest 1V portable Indication: NG tube placement. Chest one view: Comparison 1107 hours. NG tube is now present extending well into the upper abdomen. Tip extends off lower edge of the image. Central line, pacemaker, cardiomegaly and diffuse interstitial lung disease with obscuration of left hemidiaphragm persist unchanged. Impression: NG tube position as described. PROCEDURE INTERPRETED AT [facility] DEPARTMENT OF RADIOLOGY Final Report Signed by: Gelacio Swanson M.D.
[2016-10-08] MEDS: ENOXAPARIN 40 MG/0.4 ML SYRINGE SUBCUT SCH (15:51)
[2016-10-08] MEDS: INSULIN REGULAR IV SCH (17:47)
[2016-10-08] MEDS: TRACE ELEMENTS IV SCH (17:47)
[2016-10-08] MEDS: [UNRECOGNIZED DRUG - OTHER] IV SCH (17:47)
[2016-10-08] MEDS: MULTIVITAMIN IV SCH (17:47)
[2016-10-08] MEDS: VANCOMYCIN INJ 1,000 MG in SODIUM CHLORIDE 0.9% 250 ML IV SCH (22:57)
[2016-10-09] MEDS: INSULIN LISPRO 100 UNIT/ML SUBCUT SCH ×4 (01:29→18:28)
[2016-10-09 02:43] LABS: Basophils # 0.1 10*3/uL (0.0-0.2); Basophils % 0.1 % (0.0-0.8); Hematocrit 29.6 VOL% (35.7-47.0); Hemoglobin 9.7 GM/DL (12.0-16.0); Immature Granulocytes % 2.5 %; Immature Granulocytes Absolute 0.95 #; Lymphocytes # 1.1 10*3/uL (1.4-4.0); Mean Corpuscular HGB Conc 32.8 GM/DL (32-36); Mean Corpuscular Hemoglobin 29 PG (27-34); Mean Corpuscular Volume 87.6 FL (87-102); Mean Platelet Volume 13.2 FL (9.6-12.0); Monocytes # 3.1 10*3/uL (0.11-0.8); Monocytes % 8.2 % (1.7-12.7); NRBC # 0.02 10*3/uL; Neutrophils # 32.5 10*3/uL (1.4-7.4); Neutrophils % 86.2 % (38.7-73.9); Platelet Count 313 T/CUMM (130-400); Red Blood Count 3.38 MC/CUMM (3.8-5.5); Red Cell Distribution Width 16.2 % (9.3-17.3); White Blood Count 37.7 T/CUMM (4-12)
[2016-10-09 03:09] LABS: Calcium 8.5 MG/DL (8.5-10.1); Magnesium 2.4 MG/DL (1.8-2.4); Osmolality,Calculated 315.2 MOS/KG (273-304); Potassium 5.3 MMOL/L (3.5-5.1)
[2016-10-09] MEDS: ALBUTEROL/IPRATROPIUM 3 ML NEB RESP TX SCH ×6 (03:58→23:51)
[2016-10-09 04:09] LABS: Band Neutrophils 2 % (0-10); Lymphocytes 3 % (20-55); Platelet Estimate Normal; Segmented Neutrophils 89 % (50-85); Total Cells Counted 100
[2016-10-09 04:15] LABS: ABG Base Excess -7.4 MMOL/L (-2.5-2.5); ABG HCO3 17.9 MMOL/L (20-26); ABG Oxygen Saturation 96.5 % (95-100); ABG PCO2 35.5 MM HG (35-48); ABG PH 7.321 (7.35-7.45); ABG PO2 86.9 MM HG (80-95); Allen Test Positive
[2016-10-09] MEDS: METOCLOPRAMIDE 10 MG/2 ML VIAL IV SCH ×4 (06:28→23:42)
--- NOTE | 2016-10-09 07:35 | XRay Report ---
XR chest 1V portable Indication: Shortness of breath. Chest one view: Since yesterday, central line, pacemaker, cardiomegaly, marked pulmonary hypoinflation and significantly coarsened interstitial markings of the lungs with patchy left basilar opacification are stable. Dobbhoff feeding tube has been withdrawn such that the weighted tip is now in the distal esophagus. Impression: Recommend replacing Dobbhoff feeding tube, tip is now in the distal esophagus. Otherwise no change. PROCEDURE INTERPRETED AT [facility] DEPARTMENT OF RADIOLOGY Final Report Signed by: Gelacio Swanson M.D.
[2016-10-09] MEDS: methylPREDNISolone SOD SUC 40 MG/1 ML VIAL IV SCH (08:57)
[2016-10-09] MEDS: DESITIN 4OZ/NYSTATIN 15 GRAM MIXTURE PASTE TOP SCH ×2 (08:58→20:53)
[2016-10-09] MEDS: MEROPENEM 1,000 MG in SODIUM CHLORIDE 0.9% 100 ML IV SCH ×2 (08:59→20:53)
[2016-10-09] MEDS: INSULIN GLARGINE 100 UNIT/ML SUBCUT SCH (09:00)
[2016-10-09] MEDS: NEBIVOLOL 5 MG TABLET PO SCH ×3 (09:00→14:28)
--- NOTE | 2016-10-09 09:00 | XRay Report ---
XR chest 1V portable Indication: NG tube placement. Chest one view: Compromise view of the chest and abdomen shows Dobbhoff feeding tube advanced well into the stomach. The tip is near the gastric pylorus. Impression: Dobbhoff feeding tube position as described. PROCEDURE INTERPRETED AT [facility] DEPARTMENT OF RADIOLOGY Final Report Signed by: Gelacio Swanson M.D.
[2016-10-09] MEDS: MUPIROCIN 2% OINT 22 GM TUBE TOP SCH ×2 (09:07→20:53)
[2016-10-09] MEDS: COLLAGENASE OINT 30 GM TUBE TOP SCH (09:08)
[2016-10-09] MEDS ORDERED: FLUCONAZOLE INJ 100 MG in IV BAG 1 EACH IV SCH (09:30)
--- NOTE | 2016-10-09 10:51 | XRay Report ---
XR chest 1V portable Indication: NG tube placement. Chest one view: Compromise view of the chest and abdomen shows Dobbhoff feeding tube now in the right mainstem bronchus. It should be removed immediately. Impression: Feeding tube right main stem bronchus. PROCEDURE INTERPRETED AT [facility] DEPARTMENT OF RADIOLOGY Final Report Signed by: Gelacio Swanson M.D.
[2016-10-09] MEDS: FAT EMULSION 20% 250 ML IV SCH (14:20)
--- NOTE | 2016-10-09 14:55 | XRay Report ---
XR chest 1V portable Indication: Feeding tube placement. Chest 1 view: Feeding tube is now present in the stomach, tip directed over the pyloric sphincter region. Impression: Dobbhoff feeding tube well into the stomach. PROCEDURE INTERPRETED AT [facility] DEPARTMENT OF RADIOLOGY Final Report Signed by: Gelacio Swanson M.D.
--- NOTE | 2016-10-09 15:36 | Hospitalist Progress Note ---
Assessment and Plan (1) Fungemia Status: Acute Assessment and plan: Start Diflucan. Replaced TLC yesterday. Catheter tip sent for culture. Current Visit: Yes (2) Leukocytosis Status: Acute Assessment and plan: Adjust antibiotics by changing vancomycin to Cubicin given the MRSA sensitivities on the most recent bronchial culture. Current Visit: Yes (3) Pneumonia Status: Acute Assessment and plan: Continue abx-daptomycin and merrem. for E. Coli and MRSA Current Visit: Yes Qualifiers: Pneumonia type: due to methicillin-sensitive Staphylococcus aureus (MSSA) Laterality: right Lung location: lower lobe of lung Qualified Code(s): J15.211 - Pneumonia due to Methicillin susceptible Staphylococcus aureus (4) Chronic renal insufficiency Status: Chronic Current Visit: Yes Qualifiers: Chronic kidney disease stage: stage 2 (mild) Qualified Code(s): N18.2 - Chronic kidney disease, stage 2 (mild) (5) Nonischemic cardiomyopathy Status: Chronic Current Visit: Yes Hospitalist: Subjective Interval history: Patient seen and examined. No acute events overnight. Case discussed with nursing staff. Labs reviewed. She has had multiple attempts at placing and replacing the feeding tube. It has been successfully placed in the stomach and the x-ray from 1:30 this afternoon was reviewed by me with the nurses. Bronchial washings/sputum culture with MRSA with sensitivity to vancomycin of 2. I will switch her from vancomycin to daptomycin for improved coverage of her MRSA. Exam - Constitutional Vitals: Period Temp Pulse Resp BP Sys/Que[place] Pulse Ox Last 24 Hr 97.0 F-98.5 F 57-76 16-30 98-122/41-69 89-100 Exam: Constitutional System: No distress. No tremulousness. Head: Normocephalic, atraumatic. Ears, Nose and Throat System: No pain or tenderness. No epistaxis or discharge. Feeding tube in place. Eyes System: Pupils equal, round, and reactive. Extraocular muscles intact. Neck: Supple, without adenopathy, No jugular venous distention. Respiratory System: Chest clear to auscultation with minimal scattered rhonchi. Cardiovascular System: Heart with regular rate and rhythm. No murmur. GI System: Abdomen soft, nontender. Normo active bowel sounds present. Musculoskeletal System: limbs with no pedal edema. Full distal pulses. Neurological System: No discernable sensory deficit. Results - Labs CBC & BMP: 10/09/16 02:08 10/09/16 02:08 Lab Results: I have reviewed the past 24 hour labs - Diagnostic Findings Procedure: Chest x-ray: image reviewed by me, report reviewed by me
[2016-10-09] MEDS: ENOXAPARIN 40 MG/0.4 ML SYRINGE SUBCUT SCH (15:42)
--- NOTE | 2016-10-09 15:50 | Pulmonology Progress Note ---
Pulmonary - PN: Subj Interval history: 81-year-old -[place] female admitted for small bowel obstruction and septic shock requiring mechanical ventilation due to aspiration pneumonia from E. coli and staph aureus. Patient has been extubated for many days and doing well on nasal cannula during the day and BiPAP at night. Yesterday patient was found to have candidemia and cultures are growing MRSA with high vancomycin RUBÉN , so she was started on fluconazole and vancomycin was switched to daptomycin. No acute issues overnight. Exam (Progress Note) - Constitutional Vitals: Period Temp Pulse Resp BP Sys/Quezada Pulse Ox Last 24 Hr 97.0 F-98.5 F 57-76 16-30 98-122/41-69 89-100 General appearance: over weight - Head Head exam: Present: normocephalic, atraumatic - Eye Eye exam: Present: EOMI - ENT ENT exam: Present: normal exam - Neck Neck exam: Present: normal inspection - Respiratory Respiratory exam: Present: rhonchi. Absent: accessory muscle use, rales, wheezes - Cardiovascular Cardiovascular exam: Present: regular rate and rhythm. Absent: systolic murmur - GI/Abdominal GI/Abdominal exam: Present: normal bowel sounds, soft. Absent: tenderness - Extremities Exam Extremities exam: Present: normal inspection Results - Labs CBC & BMP: 10/09/16 02:08 10/09/16 02:08 - Diagnostic Findings Procedure: Chest x-ray: image reviewed by me, report reviewed by me Assessment and Plan (1) Pneumonia Status: Acute Assessment and plan: Right lower lobe aspiration pneumonia due to E. coli and MRSA. Radiographically and clinically improving. Antibiotics transitioned to meropenem and daptomycin given the high vancomycin RUBÉN. Continue current management. Current Visit: Yes Qualifiers: Pneumonia type: due to methicillin-sensitive Staphylococcus aureus (MSSA) Laterality: right Lung location: lower lobe of lung Qualified Code(s): J15.211 - Pneumonia due to Methicillin susceptible Staphylococcus aureus (2) Fungemia Status: Acute Assessment and plan: Blood cultures yesterday noted to be Alley and patient was started on fluconazole. Central line has been exchanged and patient continues on TPN. ID following. Current Visit: Yes (3) COPD (chronic obstructive pulmonary disease) Status: Chronic Assessment and plan: No evidence of wheezing on exam today. Patient appears improved. Will further reduce steroid dose today to 20 mg once a day given finding of fungemia. Current Visit: Yes Qualifiers: COPD type: chronic bronchitis Chronic bronchitis type: simple Qualified Code(s): J41.0 - Simple chronic bronchitis (4) Small bowel obstruction Status: Acute Assessment and plan: Resolved Current Visit: No (5) Leukocytosis Status: Acute Assessment and plan: Likely multifactorial from fungemia, aspiration pneumonia, and steroids. Current Visit: Yes
[2016-10-09] MEDS: INSULIN REGULAR IV SCH (17:34)
[2016-10-09] MEDS: MULTIVITAMIN IV SCH (17:34)
[2016-10-09] MEDS: TRACE ELEMENTS IV SCH (17:34)
[2016-10-09] MEDS: [UNRECOGNIZED DRUG - OTHER] IV SCH (17:34)
[2016-10-10] MEDS: INSULIN LISPRO 100 UNIT/ML SUBCUT SCH ×3 (01:25→13:06)
[2016-10-10 03:38] LABS: ABG Base Excess -7.2 MMOL/L (-2.5-2.5); ABG HCO3 18.6 MMOL/L (20-26); ABG Oxygen Saturation 98.3 % (95-100); ABG PCO2 34.5 MM HG (35-48); ABG PH 7.328 (7.35-7.45); ABG TCO2 16.8 MMOL/L (23-27); Allen Test Positive
[2016-10-10] MEDS: ALBUTEROL/IPRATROPIUM 3 ML NEB RESP TX SCH ×3 (03:55→10:53)
[2016-10-10 05:17] LABS: Basophils # 0.1 10*3/uL (0.0-0.2); Basophils % 0.1 % (0.0-0.8); Eosinophils % 0.1 % (0.00-10.9); Hematocrit 27.2 VOL% (35.7-47.0); Hemoglobin 9.2 GM/DL (12.0-16.0); Immature Granulocytes % 2.4 %; Immature Granulocytes Absolute 0.81 #; Lymphocytes # 1.1 10*3/uL (1.4-4.0); Lymphocytes % 3.3 % (21.3-54.2); Mean Corpuscular HGB Conc 33.8 GM/DL (32-36); Mean Corpuscular Hemoglobin 29 PG (27-34); Mean Corpuscular Volume 85.8 FL (87-102); Mean Platelet Volume 12.5 FL (9.6-12.0); Monocytes # 3.1 10*3/uL (0.11-0.8); Monocytes % 9.1 % (1.7-12.7); NRBC # 0.02 10*3/uL; Neutrophils # 28.6 10*3/uL (1.4-7.4); Platelet Count 368 T/CUMM (130-400); Red Blood Count 3.17 MC/CUMM (3.8-5.5); Red Cell Distribution Width 16.1 % (9.3-17.3); White Blood Count 33.7 T/CUMM (4-12)
[2016-10-10] MEDS: METOCLOPRAMIDE 10 MG/2 ML VIAL IV SCH ×2 (05:37→13:38)
[2016-10-10 05:45] LABS: Calcium 8.9 MG/DL (8.5-10.1); Magnesium 2.6 MG/DL (1.8-2.4); Osmolality,Calculated 315.2 MOS/KG (273-304); Potassium 4.9 MMOL/L (3.5-5.1)
[2016-10-10 05:46] LABS: Burr Cells Slight; Eosinophils 1 % (0-10); Hypochromasia 1+; Lymphocytes 4 % (20-55); Ovalocytes Slight; Platelet Estimate Adequate; Segmented Neutrophils 86 % (50-85); Total Cells Counted 100
[2016-10-10 05:47] LABS: Microcytosis Slight
[2016-10-10 06:22] LABS: Phosphorous 2.8 MG/DL (2.5-4.9)
--- NOTE | 2016-10-10 07:37 | XRay Report ---
Portable chest Date: 10/10/2016 Clinical history: Shortness of breath Comparison: 10/09/2016 Technique: Portable AP sitting chest Findings: Stable cardiomegaly and right subclavian ventricular permanent pacemaker. Persistent diffuse parenchymal findings which remain more prominent in the left lung with small pleural effusions. Stable mediastinum and osseous structures with interval removal of the venous access catheter and feeding tube. Impression: Removal of the venous catheter and feeding tube. Fairly stable appearing infiltration/edema with underlying chronic scarring. Small pleural effusions. Stable right subclavian ventricular permanent pacemaker. PROCEDURE INTERPRETED AT [facility] DEPARTMENT OF RADIOLOGY Final Report Signed by: Dr. Zaira Stovall
[2016-10-10] MEDS: INSULIN GLARGINE 100 UNIT/ML SUBCUT SCH (08:22)
[2016-10-10] MEDS: NEBIVOLOL 5 MG TABLET PO SCH (08:24)
[2016-10-10] MEDS ORDERED: MICAFUNGIN 100 MG in SODIUM CHLORIDE 0.9% 100 ML IV SCH (09:00)
[2016-10-10] MEDS ORDERED: methylPREDNISolone SOD SUC 40 MG/1 ML VIAL IV SCH (09:00)
[2016-10-10] MEDS: ENOXAPARIN 40 MG/0.4 ML SYRINGE SUBCUT SCH (10:14)
--- NOTE | 2016-10-10 10:52 | Pulmonology Progress Note ---
Pulmonary - PN: Subj Interval history: This 81-year-old black female whom I saw in pulmonary consultation on 09/25/2016. I was asked to manage her pulmonary problems and her mechanical ventilation. Patient originally been admitted with small bowel obstruction and septic shock. She also had acute kidney injury and she was dehydrated and she had mild elevation of her troponins. She had acute renal failure with hypotension and her lactic acids were elevated 6.6 and creatinine was 3.6. Dr. Henrry Moore saw in surgery consultation she was treated this conservatively. From pulmonary standpoint she became exhausted on the night of 09/24/2016 and reached a point that she could not continue to breathe and she required intubation mechanical ventilation. My impressions are. 1. Right lower lung, left upper lung and left lower lung pneumonia with atelectasis. This patient's had small bowel obstruction with nausea and vomiting. I suspect we have aspiration with bacterial superinfection. 2. Small bowel obstruction. Patient's had no bowel movements but she is developing bowel sounds. 3. Insulin-dependent diabetes mellitus 4. History of high blood pressure 5. COPD/asthma 6. Cardiac pacemaker 7. Breast cancer. 2014 8. Obesity 9. Former smoker 10. Acute on chronic renal failure. 09/26/2016. Earlier today this patient was evaluated with fiberoptic bronchoscopy . She had retained secretions bilaterally. She had evidence of mild gastric acid injury which is most prominent in the left upper lung and left lower lung and right lower lung. Multiple specimens were sent for cultures. She tolerated procedure well. Pre-bronchoscopy chest x-ray showed a fairly dense left lower lung infiltrate. There are scattered infiltrates in the right upper and right lower lung. There are no positive cultures. Sputum Gram stain from showed many gram-positive cocci. On mechanical ventilation with FiO2 of 50% ABGs show pH 7.395, PCO2 37, PO2 157 and bicarbonate 23. Electrolytes are close to normal. Creatinine is 2.10 with a BUN of 74. White count is elevated at 26,000 with 79 segs 6 lymphs and 10 monos. H&H is dropped to 9.9/ 31.0 and platelets are 224,000. Glucoses are elevated. Doppler venogram showed no evidence of deep venous thrombophlebitis. This patient's on stage to the weaning protocol. She was tried on a T-tube for short time and did not terrible. Will continue present protocols and make sure she is also on physical therapy protocol. 09/27/2016. Today's chest x-ray shows improvement. There is better variation. Patient has cardiomegaly. Her sputum is growing E. coli and methicillin- resistant staph aureus. Gram-positive cocci gram-negative rods are growing from bronchoscopy specimens taken 2016. This patient originally presented with small bowel obstruction was covered with GI medicines. The present time I have left her on vancomycin. I have stopped her Levaquin and I have stopped her Cleocin. I have added Fortaz. I have consulted infectious disease to help with management. White blood cell count remains elevated at 28,900 with 83 segs. H&H is 9.2/28.1. Platelets of 203,000. Creatinine is 2.00 with a BUN of 76. Electrolytes are normal. C-reactive protein is elevated at 9.98. Vancomycin trough level is 4.8. This is being managed by pharmacology. ABGs on FiO2 of 40% and mechanical ventilation showed pH of 7.445, PCO2 of 33, PO2 of 136 and bicarb of 22.2. The patient still in stage III to weaning protocol. Physical therapy protocol as previously been ordered. 09/28/2016. I appreciate Dr. Tirado's infectious disease consultation. Today's chest x-ray shows some mild alveolar infiltrate in the right lower lung the left upper lung. Left lower lung is not well seen. Patient's sputum and bronchoscopy specimens are growing E. coli and methicillin-resistant staph aureus. She is now been advanced to stage V the weaning protocol. ABGs are stable. White count remains elevated 29,400. H&H is stable at 10.0/30.6 and platelets are 259,000. Electrolytes are normal. Creatinine is dropped to 1.80 with a BUN of 75. 09/29/2016. Today's chest x-ray shows cardiomegaly. There are increased interstitial markings in the medial basal segment of the right lower lung and also in the left perihilar area. These are resolving infiltrates. There is no congestive heart failure. Patient's on stage V the weaning protocol. ABGs on mechanical ventilation FiO2 40% shows a pH of 7.48, PCO2 of 30.6, PO2 of 152 and a bicarb of 24.6. Electrolytes are normal. Creatinine is 1.6 with a BUN of 66 white count remains elevated 26,000 with 82% segs H&H is 9.9/29.9 and platelets of 293,000. Bronchoscopy specimens grew E. coli and methicillin- resistant staph aureus which would be in treated by infectious disease 09/30/2016. This is a 81-year-old black female who was originally admitted with small bowel obstruction. She was treated conservatively in this included an NG tube with suction. Later on she became exhausted and required intubation mechanical ventilation. She has some element of aspiration and she had a lot of retained secretions. Bronchoscopy specimens have grown E. coli and methicillin-resistant staph aureus. Infectious diseases on the case. Today's chest x-ray shows cardiomegaly there is a residual right lower lung and left perihilar infiltrate. This is alveolar with some increased interstitial markings. Patient's on stage V of the weaning protocol. ABGs on mechanical ventilation and FiO2 40% shows a pH 7.44, PCO2 36, PO2 143 and a bicarb of 25. White count remains elevated 22,900. H&H is stable at 9.8/29.6. Platelets 338, 000. Creatinine is gradually fallen to 1.50 with a BUN of 51. We will continue the weaning protocol on this patient. We need careful attention to removal of pulmonary secretions. It is possible that she could be extubated in the next 3 or 4 days. She is recently been started on NG feedings. She had 270 cc of residual feedings this morning and I have asked that we change her back to IV hyperalimentation. She will need adequate nutrition in order to come off the ventilator. 10/03/2016. This patient was extubated 10/02/2016 and she is done well since then. Her chest x-ray is better. Previously noted bilateral infiltrates are less prominent. ABGs on FiO2 32% show a pH of 7.408. PCO2 40. PO2 of 88.7 and a bicarb of 25. White blood cell count remains elevated 26,000. H&H is 8.3 /25.8. Platelets are 411,000. Electrolytes are normal. Creatinine is 1.30 with a BUN of 49. Vancomycin trough level is 18.1. This is being managed by pharmacology. This patient continues on IV hyperalimentation. I think we should continue this and we can retry p.o. intake but only a few days ago she had 275 cc of gastric residual. 10/04/2016. At around 430 or 5:00 this morning the patient developed increased respiratory distress. She was said to have stridor in her tracheal and large airway area. I was called. She was treated with ventilation therapy and since then I have added Acapella low and this is helped the patient mobilize secretions. Her chest x-ray showed evidence of pulmonary edema and she was given 40 of Lasix IV push. Since that time she has had at least 400 cc of urine output and her chest x-ray looks a lot better. She still has some bilateral pleural effusions involving the major fissures. On her chest x-ray there is dilatation of her stomach so I think we have to watch closely for reflux and aspiration in this patient. She is on Reglan I do not see any neurological side effects related to this. Patient's bronchial lavage has grown E. coli and methicillin-resistant staph aureus which is being treated by infectious disease. Patient's on cephalosporins. She is allergic to penicillin. I do not see any evidence of reaction from that standpoint. ABGs on FiO2 36% shows a pH 7.36, PCO2 42, PO2 of 63 and a bicarb of 23. White blood cell count is increased to 36,600. Platelets of 566,000 and H&H is 9.9/ 31.5. Potassium is 5.5. Creatinine is 1.4 and BUN is 59. Natruretic peptide is elevated at 1889. I started the patient on Lasix 20 IV push twice a day. Will need to watch her chest x-ray, BNP and BMP. Continue inhalation therapy. 10/05/2016. Today's x-ray looks better. Patient has cardiomegaly and mild central venous engorgement. Interstitial markings are closer to normal. There is still has the appearance of mild compensated congestive heart failure. Natruretic peptide is dropped from 1889 2 755. Creatinine is increased from 1.4 -1.6 with a BUN of 76. FiO2 has been increased to 60% and blood gases show a pH of 7.39, PCO2 of 40.8, PO2 of 111 and a bicarb of 24. This patient's going to require diuresis for congestive heart failure. Creatinine has increased with a small dose of Lasix. I am going to stop her lisinopril. I have consulted Dr. Stefan Ellis to see her in nephrology consultation and I have ordered ultrasounds of her kidneys. Patient has very coarse congestion in the trachea and the large airways. I am very concerned about reflux with aspiration and his staff is watching closely for this. Labs been reviewed. Medicines have been reviewed. 10/06/2016. Today's chest x-ray is better. Patient still has mild pulmonary edema. Fluid can be seen in the minor fissure and at both costophrenic angles. There may be an infiltrate or atelectasis in the left lower lung as the diaphragm is no longer distinguishable. Patient still has problems with hypoxemia but her oxygenation is better. On chest exam she still has significant tracheal and large airway congestion. This is compatible with retained secretions and I am very concerned that she may have aspirated. She is now n.p.o. and she is receiving IV feedings. As a result of the above I evaluated patient with fiberoptic bronchoscopy this morning. I did not see any recent aspiration although we know she had a previous aspiration injury is been documented on the previous bronchoscopy. The trachea large and small airways were moderately to markedly collapsible secondary to underlying COPD and this is because difficulty mobilizing secretions. 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 The trachea and both bronchial trees were full of thick tenacious secretions that were removed with bronchial and alveolar lavage. Specimens were sent for cytology, bacterial and fungal studies. Patient continues to run a high white count at 33,300. There are 90.76. I have ordered cultures from her central line site. Will get 3 and will drawn 1 hour apart. ABGs on FiO2 28 % shows a pH 7.33, PCO2 41, PO2 of 106 and a bicarb of 21.2. Electrolytes are normal. Creatinine is fallen to 1.5 with a BUN of 192. H&H is 8.9/27.5 and platelets of [id number]. Labs been reviewed. Medicines been reviewed. 10/07/2016. This is a 81-year-old black female who is admitted with bowel obstruction. She was treated conservatively with NG suction and the bowel obstruction resolved and she did not require surgery. She however went on to this developed significant respiratory distress and she required intubation mechanical ventilation. She was evaluated with fiberoptic bronchoscopy and there was bilateral evidence of aspiration of gastric contents. There was purulent material present which grew E. coli and staph aureus. This is being treated with antibiotics and infectious diseases on the case. Patient was extubated 10/02/2016 and she did well until earlier this week when she developed significant large airway congestion and stridor and hypoxemia. She was evaluated with fiberoptic bronchoscopy. She has marked underlying obstructive disease with collapsibility of the trachea and the large and small airways. She had a tremendous amount of retained thick tenacious secretions which were removed with lavage. Gram stain showed a few white blood cells and no organisms. There was no evidence of fungal infection. None of the patient's cultures have grown. The patient has chronic renal failure. Her creatinine is approximately 1.6. Along the way she slipped into mild to moderate congestive heart failure and this responded well to Lasix. She is now on a small dose of IV push Lasix and her creatinine is stable. Renal is following. Today's ABGs on FiO2 28% show a pH of 7.34, PCO2 of 38.1, PO2 of 106 and a bicarb of 20.6. Patient has a persistent elevation of white blood cells at around 33,000 with 90 % segs. She is on Solu-Medrol 40 IV push every 12 hours and this is the most she has received. A leukemoid reaction to possibility but will keep an eye open for infection. She has 3 cultures pending from her central venous site. So far no growth but please check this. Overall this patient is stronger the past few days and she is mobilized her secretions better and her oxygenation has improved significantly 10/10/2016. Chest x-ray shows cardiomegaly. There may be a small residual infiltrate in the left medial base. Diaphragm cannot be seen on portable film. Congestive heart failure appears to be controlled. BNP remains elevated 417. ABGs on FiO2 28% shows a pH 7.33, PCO2 34.5, PO2 of 108 and a bicarb of 18.6. White count is elevated at 33,700 with 85 segs. H&H is 9.2 of 27.2 and platelets of 368,000. Surfactant inactivates Cubicin so I suspect that another antibiotic will be needed with a staph aureus obtained with bronchial lavage. Blood cultures have been, positive for Alley albicans which is being treated with micafungin. Previously sputum has grown E. coli . Medicines have been reviewed and Dr. Tirado will reviewed the antibiotics. Physical exam. General. No apparent distress. Psychiatric. Patient just looks at me but will not answer any questions. Vital signs. See below Neurologic. Patient sedated but she appears to move all fours. Face is symmetrical. Tongue is very large Neck is symmetrical no meningismus Chest reveals prominent large airway congestion. Prolonged expiration. Heart no gallop Abdomen rare bowel sounds Lower extremities. Chronic venous stasis. No evidence of deep venous thrombophlebitis. Lymphatics. No submandibular cervical supraclavicular adenopathy. Skin the face and hands show no cancerous infectious lesions. No other areas of skin were examined The remainder of the physical exam is negative Plan. 09/25/2006 1. Agree with antibiotics. Levaquin and Flagyl. Vancomycin 2. Fiberoptic bronchoscopy 3. Patient's on pressor agents to support of breath blood pressure at the present time 4. Proton pump inhibitor protocol 5. Agree with deep venous thrombophlebitis prevention protocol 6. Mechanical ventilation weaning protocol 7. Mechanical ventilation physical therapy protocol 8. Daily chest x-ray ABGs and lab 9. Doppler venograms of lower extremity 10. See orders. 11. Sputum for Gram stain culture and sensitivity 09/26/2016. 1. See today's note above. 2. Check bronchoscopy specimen 3. All applicable protocols Home Medications 09/27/2016. 1. Sputum specimens are positive for E. coli and methicillin-resistant staph aureus. See today's note above about antibiotic changes made. Infectious disease has been consulted. 2. Continue weaning protocol 3. Continue daily ABGs chest x-ray and lab. 09/28/2016. 1. See today's note above. 2. Continue daily chest x-ray, ABGs and lab. 3. Stage V weaning protocol 4. Physical therapy protocol 09/29/2016. 1. See today's note above. 2. Daily chest x-ray, ABGs and lab. 3. Weaning protocol 4. Physical therapy protocol 5. Tongue is very large I hope this does not become a problem with weaning. The patient is not on MILDRED inhibitors or carbs. I do not see any skin rash. 09/30/2016. 1. See today's note above. 2. Daily chest x-ray, ABGs and lab 3. Stage V weaning protocol 4. Physical therapy protocol. 5. Keep an eye on the patient's tongue. He is unusually large. 10/04/2016. 1. See today's note above 2. Start Lasix 20 IV push every 12 hours. 3. Daily chest x-ray ABGs BMP and BNP. 10/05/2016. 1. Continue Lasix. 2. Stop lisinopril 3. Ultrasound of the kidneys 4. Renal consultation 5. Daily chest x-ray, ABGs, BNP, BMP. 10/06/2016. 1. See today's note above. 2. Fiberoptic bronchoscopy. See report. Check specimens. 3. Blood cultures from central venous line. 4. Daily chest x-ray, ABGs, BNP and BMP 10/07/2016. 1. Check blood cultures 2. Continue inhalation therapy. 3. Daily chest x-rays and ABGs for a few more days. 4. Daily lab. 5. Watch for recurrence of congestive heart 10/10/2016. 1. Dr. Tirado to adjust antibiotics. 2. See today's note above. Exam (Progress Note) - Constitutional Vitals: Period Temp Pulse Resp BP Sys/[place] Pulse Ox Last 24 Hr 97.3 F-98.5 F 59-100 16-34 106-142/42-76 89-100 Results - Labs CBC & BMP: 10/10/16 04:31 10/10/16 04:31
--- NOTE | 2016-10-10 10:52 | Discharge Summary ---
Hospital Course - Hospital Course Hospital Course: Ms. Oconnell is a 81 year old -[place] female with history of hypertension , diabetes, nonischemic cardiomyopathy, pacemaker, hypothyroidism, COPD, chronic renal insufficiency, obesity, sleep apnea, history of breast cancer presenting to the ED by EMS with complaints of shortness of breath, nausea and vomiting with abdominal pain. Patient states she has been short of breath for approximately 2 weeks but the nausea and vomiting started acutely yesterday. Patient states she vomited all night long with abdominal pain. She has not had a BM or passed flatus lately. Patient had undergone open repair of incarcerated incisional hernia with small bowel obstruction by Dr. Neri on . Up to that time she had multiple small bowel obstructions that resolved with conservative measures and she has had one episode after surgery in February 2016. Upon exam patient is not actively vomiting but she does have NG tube in place. We are awaiting x-ray for placement so it can be put to suction. Patient's abdomen is moderately distended and tender. CT scan shows a transition point along the anterior abdominal wall to the right of midline suggesting abdominal wall adhesion. There is wall thickening within the second portion of the duodenum also. The appearance of the lung parenchyma may in part reflect infectious process superimposed on chronic interstitial disease within the left lung base. Patient does have some coarseness bilaterally with a cough. Patient was hypotensive upon presentation to the ED. She did receive some IV fluids and is now normotensive. Patient denies headache, dysphasia, chest pain, diarrhea, or lower extremity edema. Patient's swiss machinist is Dr. Petty and her braiding machine tender is Dr. Medeiros. Dr. Allred from surgery has already seen the patient. Ms. Oconnell recovered from her SBO without having surgery. She has been found to have fungemia- with positive blood culturesX3 and is being treated with Micafungin. She also had MRSA sputum and has been started on Zyvox. She was seen by Dr. Yadav. and will be followed by her at [facility]. She has had some difficulty with swallowing and was high risk for aspiration. A weighted feeding tube was inserted and tube feeds started. TPN has been discontinued. Central line was removed due to fungemia. The patient will be treated with micafungin and Zyvox per infectious disease recommendations. Her white blood cell count is improving but remains high. As steroids continue to wean and with the addition of micafungin and Zyvox, I expect this to improve. She will need aggressive physical rehab and continued IV antibiotics. Home medications were reviewed and reconciled. Oral medications were resumed. Tube feeds should be continued and increased in volume according to the registered dietitian's recommendations. - Time spent with patient Time with patient DS: Greater than 30 minutes (Total discharge time for this patient, including [id number] time, clinical documentation, medication reconciliation, and discharge planning was 45 minutes.) Diagnosis - Discharge Diagnosis (1) Fungemia Status: Acute (2) Leukocytosis Status: Acute (3) Pneumonia Status: Acute (4) Chronic renal insufficiency Status: Chronic (5) Nonischemic cardiomyopathy Status: Chronic (6) MRSA pneumonia Status: Acute Discharge Plan - Discharge Data Disposition: [facility]ch/[facility] Condition at Discharge: Stable Discharge Diet: other (Continue tube feeds per our registered dietitian recommendation) Activity: as per physical therapy - Discharge Medications New RX: Collagenase Oint [Santyl Oint] 1 applic TOP DAILY applic RX: Enoxaparin [Lovenox] 40 mg SUBCUT Q24H syringe RX: Insulin Lispro [HumaLOG] See Protocol SUBCUT Q6HR unit RX: Metoclopramide Inj [Reglan Inj] 5 mg IV Q6H vial RX: Mupirocin 2% Oint [Bactroban 2% Oint] 1 applic TOP BID applic RX: Nebivolol [Bystolic] 2.5 mg PO DAILY tablet RX: Phenol 1.4% Throat Byers [Chloraseptic Byers] 5 spray PO Q2H PRN bottle PRN Reason: Sore Throat RX: Acetaminophen Supp [Tylenol Supp] 325 mg RECTAL Q4H PRN supp PRN Reason: Fever RX: Albuterol/Ipratropium Neb [Duoneb] 3 ml RESP TX RT Q4H RX: Lisinopril [Prinivil] 2.5 mg PO BID tablet RX: Micafungin [Mycamine] 100 mg IV Q24H vial RX: Skin Healing Oint (Aquaphor) [Aquaphor] 1 applic TOP PRN PRN applic PRN Reason: Dry Skin RX: Linezolid Inj [Zyvox Inj] 600 mg IV Q12H Continue RX: Tiotropium Inhalation [Spiriva Handihaler] 18 mcg INH DAILY RX: Insulin NPH Human Isophane [NovoLIN N] 10 unit SUBCUT BID RX: Furosemide Tab [Lasix Tab] 40 mg PO DAILY PRN PRN Reason: Edema RX: Aspirin EC Tab 81 mg PO DAILY RX: Thyroid [[place] Thyroid] 30 mg PO DAILY RX: Montelukast Tab [Singulair Tab] 10 mg PO BEDTIME RX: Letrozole [Femara] 2.5 mg PO DAILY RX: Allopurinol [Zyloprim] 100 mg PO DAILY RX: HYDROcodone/ACETAMIN 10-325 [Majestic 10-325] 1 tablet PO Q6H PRN #20 tablet PRN Reason: Pain RX: Albuterol Inhaler [Proventil Inhaler] 2 puff INH Q4H PRN PRN Reason: Shortness Of Breath/Wheezing RX: Linaclotide [Linzess] 145 mcg PO AC BREAKFAST RX: Albuterol Sulfate [Proair HFA] 2 puff INH Q4H PRN PRN Reason: Shortness Of Breath/Wheezing RX: Bisacodyl Tab [Dulcolax Tab] 10 mg PO DAILY Discontinued RX: Meloxicam [Mobic] 15 mg PO DAILY RX: Spironolactone [Aldactone] 25 mg PO DAILY Metoclopramide Tab [Reglan Tab] 5 mg PO BIDAC - Follow Up or Referral - Forms/Instructions Additional Discharge Instructions: Discharge to LTAC. Exam - Constitutional Vitals: Period Temp Pulse Resp BP Sys/Quezada Pulse Ox Last 24 Hr 97.3 F-98.5 F 59-100 16-34 106-142/42-76 89-100 Discharge Results Procedures and tests throughout hospitalization: Pending Orders 09/26/16 AFB Culture/Smears Stat Fungal Culture w/ Prep Stat 10/06/16 AFB Culture/Smears Routine 10/08/16 11:20 Catheter Tip Culture Routine 10/09/16 Susceptibility Panel, Yeast Routine 10/10/16 08:08 IR PICC line insertion Routine 10/13/16 04:00 Magnesium MOTH Phosphorous MOTH Prealbumin MOTH 10/17/16 04:00 Magnesium MOTH Phosphorous MOTH Prealbumin MOTH Labs on day of discharge: Labs from last 24 hours 10/10/16 10/10/16 10/10/16 07:20 05:38 04:31 WBC RBC Hgb Hct MCV MCH MCHC RDW Plt Count MPV Neut % (Auto) Lymph % (Auto) [place] % (Auto) Eos % (Auto) Baso % (Auto) Neut # (Auto) Lymph # (Auto) [place] # (Auto) Eos # (Auto) Baso # (Auto) Total Counted Immature Gran % Nucleated RBC % Immature Gran # Segmented Neutrophils Lymphocytes Monocytes Eosinophils Nucleated RBCs # Platelet Estimate Hypochromasia Microcytosis Ovalocytes [place] Cells Morphology Comment ABG pH ABG pCO2 ABG pO2 ABG HCO3 ABG Total CO2 ABG O2 Saturation ABG Base Excess FiO2 Sodium Potassium Chloride Carbon Dioxide Anion Gap BUN Creatinine GFR Calculation BUN/Creatinine Ratio Glucose POC Glucose 71 L 119 H Calculated Osmolality Calcium Phosphorus 2.8 Magnesium B-Natriuretic Peptide Prealbumin 26.0 Vancomycin Trough 10/10/16 10/10/16 10/10/16 04:31 04:31 04:31 WBC 33.7 H RBC 3.17 L Hgb 9.2 L Hct 27.2 L MCV 85.8 L MCH 29 MCHC 33.8 RDW 16.1 Plt Count 368 MPV 12.5 H Neut % (Auto) 85.0 H Lymph % (Auto) 3.3 L [place] % (Auto) 9.1 Eos % (Auto) 0.1 Baso % (Auto) 0.1 Neut # (Auto) 28.6 H Lymph # (Auto) 1.1 L [place] # (Auto) 3.1 H Eos # (Auto) 0.0 Baso # (Auto) 0.1 Total Counted 100 Immature Gran % 2.4 Nucleated RBC % 0.1 Immature Gran # 0.81 Segmented Neutrophils 86 H Lymphocytes 4 L Monocytes 9 Eosinophils 1 Nucleated RBCs # 0.02 Platelet Estimate Adequate Hypochromasia 1+ Microcytosis Slight Ovalocytes Slight [place] Cells Slight Morphology Comment ABG pH ABG pCO2 ABG pO2 ABG HCO3 ABG Total CO2 ABG O2 Saturation ABG Base Excess FiO2 Sodium 134 L Potassium 4.9 Chloride 104 Carbon Dioxide 19 L Anion Gap 15.9 H BUN 149 H Creatinine 1.50 H GFR Calculation 43 BUN/Creatinine Ratio 99.00 H Glucose 75 POC Glucose Calculated Osmolality 315.2 H Calcium 8.9 Phosphorus Magnesium 2.6 H B-Natriuretic Peptide 417 H Prealbumin Vancomycin Trough 10/10/16 10/10/16 10/09/16 03:30 00:59 21:31 WBC RBC Hgb Hct MCV MCH MCHC RDW Plt Count MPV Neut % (Auto) Lymph % (Auto) [place] % (Auto) Eos % (Auto) Baso % (Auto) Neut # (Auto) Lymph # (Auto) [place] # (Auto) Eos # (Auto) Baso # (Auto) Total Counted Immature Gran % Nucleated RBC % Immature Gran # Segmented Neutrophils Lymphocytes Monocytes Eosinophils Nucleated RBCs # Platelet Estimate Hypochromasia Microcytosis Ovalocytes [place] Cells Morphology Comment ABG pH 7.328 L ABG pCO2 34.5 L ABG pO2 108.0 H ABG HCO3 18.6 L ABG Total CO2 16.8 L ABG O2 Saturation 98.3 ABG Base Excess -7.2 L FiO2 28.00 Sodium Potassium Chloride Carbon Dioxide Anion Gap BUN Creatinine GFR Calculation BUN/Creatinine Ratio Glucose POC Glucose 217 H Calculated Osmolality Calcium Phosphorus Magnesium B-Natriuretic Peptide Prealbumin Vancomycin Trough 29.1 H 10/09/16 10/09/16 18:17 12:20 WBC RBC Hgb Hct MCV MCH MCHC RDW Plt Count MPV Neut % (Auto) Lymph % (Auto) [place] % (Auto) Eos % (Auto) Baso % (Auto) Neut # (Auto) Lymph # (Auto) [place] # (Auto) Eos # (Auto) Baso # (Auto) Total Counted Immature Gran % Nucleated RBC % Immature Gran # Segmented Neutrophils Lymphocytes Monocytes Eosinophils Nucleated RBCs # Platelet Estimate Hypochromasia Microcytosis Ovalocytes [place] Cells Morphology Comment ABG pH ABG pCO2 ABG pO2 ABG HCO3 ABG Total CO2 ABG O2 Saturation ABG Base Excess FiO2 Sodium Potassium Chloride Carbon Dioxide Anion Gap BUN Creatinine GFR Calculation BUN/Creatinine Ratio Glucose POC Glucose 271 H 90 Calculated Osmolality Calcium Phosphorus Magnesium B-Natriuretic Peptide Prealbumin Vancomycin Trough Preliminary micro results at discharge 10/06/16 Unknown Mycobacterial Culture - Preliminary Bronchial Josué Lavage No AFB isolated at 1 week 09/26/16 Unknown Mycobacterial Culture - Preliminary Bronchial Josué Lavage No AFB isolated at 2 weeks 09/26/16 Unknown Fungal Culture - Preliminary Bronchial Josué Lavage No Fungus isolated at 1 week DS: Provider Date of admission: 09/20/16 15:05 Primary care physician: . No PCP Attending physician on admission: Diana Washington MD Consults: 09/20/16 14:44 Consult to Physician [CONS] Routine Comment: elevated troponin, possible surgery Consulting Provider: Tammie Melton 09/20/16 15:37 Consult to Physician [CONS] Routine Comment: SBO Consulting Provider: Ariel Allred 09/20/16 15:41 Consult to Case Mgmt/Social Srvs [CONS] Routine Reason for Case Mgmt/Social Srvs: Discharge Planning 09/20/16 17:10 Consult to Dietitian [CONS] Routine Reason for Dietitian: Dietary Consult 09/21/16 11:41 Consult to Dietitian [CONS] Routine Reason for Dietitian: TPN/PPN-Initiate/Manage 09/25/16 09:54 Consult to Physician [CONS] Routine Comment: on vent Consulting Provider: Sourav Slade 09/25/16 10:01 Consult to Pharmacy [CONS] Routine Reason for Pharmacy Consult: Dose/Manage Antibiotics Dose/Manage Vancomycin Comment: please adjust antibiotic doses for renal disease 09/27/16 10:46 Consult to Physician [CONS] Routine Comment: MRSA, Ecoli in sputum Consulting Provider: Reta Yadav Consulting Provider Notified: Yes Consult to Specialist Group: Infectious Disease Person Notified: [email or web address] Date Notified: 09/27/16 Time Notified: 10:55 09/27/16 12:10 Consult to Dietitian [CONS] Routine Reason for Dietitian: TF-Initiate/Manage 09/30/16 10:02 Consult to Dietitian [CONS] Routine Reason for Dietitian: TPN/PPN-Initiate/Manage 10/05/16 10:01 Consult to Physician [CONS] Routine Comment: renal failure Consulting Provider: Stefan Ellis 10/05/16 10:54 Consult to Physical Therapy [CONS] Routine Reason for Physical Therapy: Evaluate and Treat 10/05/16 13:20 Consult to Case Mgmt/Social Srvs [CONS] Routine Reason for Case Mgmt/Social Srvs: LTAC 10/07/16 12:16 Consult to Wound Care [facility] [CONS] Routine Reason for Wound Care: Wound Care Management Consult Comment: sacral decubitus 10/09/16 07:17 Consult to Occupational Therapy [CONS] Routine Reason for Occupational Therapy: Evaluate and Treat Start Therapy: Today Discharging clinician: Esteban Ramos MD Expected date of discharge: 10/10/16
--- NOTE | 2016-10-10 10:56 | Infectious Disease Progress ---
Assessment and Plan (1) Pneumonia Status: Acute Assessment and plan: MRSA and E. coli cultured previously. FOB last revealed thick tenacious secretions in airways and culture was positive for MRSA with vancomycin RUBÉN now increased to 2. Pulmonary status overall much improved. She still has significant leukocytosis with probable contribution from steroids. Recommendations: 1. Stop daptomycin 2. And start linezolid 600 mg IV every 12 hours 3. Discontinue meropenem Discussed with Dr. Ramos. Current Visit: Yes Qualifiers: Pneumonia type: due to methicillin-sensitive Staphylococcus aureus (MSSA) Laterality: right Lung location: lower lobe of lung Qualified Code(s): J15.211 - Pneumonia due to Methicillin susceptible Staphylococcus aureus (2) COPD (chronic obstructive pulmonary disease) Status: Chronic Current Visit: Yes Qualifiers: COPD type: chronic bronchitis Chronic bronchitis type: simple Qualified Code(s): J41.0 - Simple chronic bronchitis (3) Chronic renal insufficiency Status: Chronic Assessment and plan: Creatinine relatively stable over the past few days. Current Visit: Yes Qualifiers: Chronic kidney disease stage: stage 2 (mild) Qualified Code(s): N18.2 - Chronic kidney disease, stage 2 (mild) (4) Diabetes mellitus Status: Chronic Current Visit: Yes Qualifiers: Diabetes mellitus type: type 2 Chronic kidney disease stage: stage 2 (mild ) (5) Hypertension Status: Chronic Current Visit: Yes Qualifiers: Hypertension type: essential hypertension Qualified Code(s): I10 - Essential (primary) hypertension (6) Fungemia Status: Acute Assessment and plan: Patient predisposed to this infection having had an central line and getting TPN. Recommendations: 1. Discontinue fluconazole 2. Start micafungin 3. Follow-up in fungal susceptibility results and de-escalate to fluconazole if able 4. I would avoid replacing central line if at all possible and use peripheral IV access until we establish that the repeat blood cultures are negative for Alley 5. Repeat blood cultures today Discussed with Dr. Nunez Current Visit: Yes Infectious Disease - PN: Subj Interval history: Patient doing relatively okay she is now out of ICU. She has not had any fever over the weekend. Blood cultures ordered on 06 October when she had worsening leukocytosis came up positive for Alley albicans over the weekend. She was started on fluconazole. The patient had her central line exchange yesterday however this morning she pulled out the new central line. She has been getting TPN. Infectious Disease Exam (PN) - Constitutional Vitals: Temp Pulse Resp BP Pulse Ox 97.3 F L 63 18 106/42 99 10/10/16 08:00 10/10/16 08:00 10/10/16 08:00 10/10/16 08:00 10/10/16 08:00 General appearance: over weight Exam: General appearance: Drowsy but easily arousable, breathing is not as loud and labored as last week - Eye Eye exam: Present: EOMI. no icterus Pupils: Present: VALENTINA - Respiratory Respiratory exam: Breath sounds clear - Cardiovascular Cardiovascular exam: regular rate and rhythm, no murmurs - GI/Abdominal GI/Abdominal exam: normal bowel sounds, soft, non-tender, no organomegaly or mass - Extremities Exam Extremities exam: no edema - Skin Skin exam: no rash Results - Labs CBC & BMP: 10/10/16 04:31 10/10/16 04:31 Lab Results: I have reviewed the past 24 hour labs (Yeast in 3 of 3 sets of blood cultures from the 15th, sputum culture from the 15th from bronchoscopy positive again for MRSA with vancomycin RUBÉN of 2) - Diagnostic Findings Procedure: Chest x-ray: image reviewed by me, report reviewed by me (Increased interstitial markings throughout possible small left pleural effusion)
[2016-10-10] MEDS: MEROPENEM 1,000 MG in SODIUM CHLORIDE 0.9% 100 ML IV SCH (11:13)
[2016-10-10] MEDS ORDERED: LINEZOLID INJ 600 MG in PREMIX 1 EACH IV SCH (12:00)
--- NOTE | 2016-10-10 12:44 | XRay Report ---
History: Nasogastric tube placement Date: 10/10/2016 11:51 AM Study: Chest x-ray AP portable Comparison exam: 10/10/2016 at 5:59 The feeding tube tip overlies the distal stomach body level. The exam is otherwise grossly similar to the previous study. Impression: The feeding tube tip overlies the distal stomach body level PROCEDURE INTERPRETED AT [facility] DEPARTMENT OF RADIOLOGY Final Report Signed by: Dr. Roxy Gomez
[2016-10-10] MEDS: MUPIROCIN 2% OINT 22 GM TUBE TOP SCH (13:04)
[2016-10-10] MEDS: COLLAGENASE OINT 30 GM TUBE TOP SCH (13:05)
[2016-10-10] MEDS: DESITIN 4OZ/NYSTATIN 15 GRAM MIXTURE PASTE TOP SCH (13:05)
--- NOTE | 2016-10-10 13:46 | Nephrology Progress Note ---
Nephrology - PN: Subj Interval history: Ms. cOonnell is seen in follow-up of her azotemia. Creatinine stable at 1.5 with a BUN of 150. She continues to be quite ill. She is alert and able to interact she appears well-hydrated. She is now off steroids per our review of her medication. BUN remains quite elevated. Exam (PN)-Nephrology - Vital Signs Vital signs: Period Temp Pulse Resp BP Sys/Quezada Pulse Ox Last 24 Hr 97.3 F-98.5 F 62-100 16-34 106-142/42-76 97-100 - Lab 10/10/16 04:31 10/10/16 04:31 Most recent lab results ABG pH 7.328 (7.35-7.45) L 10/10/16 03:30 ABG pCO2 34.5 MM HG (35-48) L 10/10/16 03:30 ABG pO2 108.0 MM HG (80-95) H 10/10/16 03:30 ABG HCO3 18.6 MMOL/L (20-26) L 10/10/16 03:30 ABG O2 Saturation 98.3 % (95-100) 10/10/16 03:30 Calcium 8.9 MG/DL (8.5-10.1) 10/10/16 04:31 Phosphorus 2.8 MG/DL (2.5-4.9) 10/10/16 04:31 Magnesium 2.6 MG/DL (1.8-2.4) H 10/10/16 04:31 Assessment and Plan (1) Renal insufficiency Status: Acute Assessment and plan: Watch volume which will be hard to assess. Dose adjust Vancomycin. Agree with no MILDRED inhibitor. Current Visit: No (2) Diabetes mellitus Status: Chronic Current Visit: Yes Qualifiers: Diabetes mellitus type: type 2 Chronic kidney disease stage: stage 2 (mild )
[2016-10-10 13:55] VITALS: BP 123/50
--- NOTE | 2016-10-10 14:26 | Post Interventional Procedure ---
Pre-op diagnosis: DM, pneumonia, COPD, fungemia Post-op diagnosis: same Procedure: central venous catheter placement Contrast: none Flouroscopy: 0.1 min Radiologist: Anshu Reid Anesthesia: local Specimens: none sent Estimated blood loss: none Complications: none Condition: stable Description/Findings: Reportedly, the patient has no significant options for peripheral venous access despite multiple attempts. CVL placed without difficulty. Unfortunately, the infectious disease note was not seen prior to the placement of the catheter. Assessment and Plan - Time spent with patient Time spent with patient: Less than 30 minutes
--- NOTE | 2016-10-10 14:31 | Interventional Radiology Rpt ---
IR cvc insert nt >5, US guide vascular access, IR fluoro guide cv cath Central Line placement using fluoroscopic and ultrasound guidance Ultrasound of the right neck Clinical Information: 81-year-old female with COPD, pneumonia, diabetes, fungemia, history of TPN administration now status post line removal. Patient is unable to obtain peripheral venous access despite multiple attempts. Central venous access is requested for fluid and antibiotic administration. Physician[s]: Dr. Reid Procedure: The patient was advised of the benefits, risks, and alternatives of the procedure and informed consent was obtained. A time out was performed with verification of the patient's name, MRN, site of procedure, and type of procedure to be performed. The patient was positioned in the supine position on the angiographic table. The site was prepped and draped in the usual sterile fashion. Local anesthesia only was used for the procedure. A front line supervisor radiograph reveals no relevant abnormality. The neck and anterior chest wall were anesthetized with lidocaine. The right internal jugular vein was accessed using a microintroducer needle via a lateral approach with ultrasound guidance. Ultrasound image capture of vascular access was obtained for the patient's permanent record. A 0.018" cope wire was advanced into the superior vena cava, the needle was removed and a microintroducer sheath was placed. An Amplatz wire was then passed into the inferior vena cava. An incision was made at the puncture site using a scalpel. The tract was serially dilated over the wire. A 7 Frisian triple lumen 20 cm Arrow central venous catheter was placed with its tip at the cavoatrial junction under fluoroscopic guidance. The ports aspirate and flush freely. The catheter was sutured in place using 3-0 silk suture and covered with a sterile dressing. The patient tolerated the procedure well and was returned to the PRU in stable condition. EBL: < 5 mL. Complications: None. Total Fluoroscopy Time: 0.1 minutes. Total number of images for the procedure: 2 Conclusion: Successful placement of a triple lumen central venous catheter via the right internal jugular vein. The catheter is ready for immediate use. PROCEDURE INTERPRETED AT [facility] DEPARTMENT OF RADIOLOGY Final Report Signed by: Anshu Reid
[2016-10-10] MEDS ORDERED: AMINO ACIDS 10% IV SCH (17:00)
[2016-10-10] MEDS ORDERED: DEXTROSE 30% IV SCH (17:00)
== END 2016-10-10 15:16 | DRG 870 ==
LOC: EDBD → EDUNIT# → N.ED 10:51 → N.EDINP 15:05 → SUATTDRO 15:05 → N.CC 16:09 → N.2E 09-22 14:20 → N.ICU 09-24 04:38 → N.2E 10-08 18:27
PROVIDERS: ADMIT Internal Medicine; ATTEND Family Medicine

== ENCOUNTER 2016-11-07 11:10 | Inpatient (IN) ==
--- NOTE | 2016-11-07 11:50 | CT Report ---
History is right-sided weakness and facial drooping There is a diffuse atrophy A mild/moderate patchy white matter low densities again seen with a tiny area chronic cortical loss in the left frontal lobe. There is question of some very minimal loss of white junction differentiation in the cortex adjacent to this area. No acute hemorrhage or mass effects seen. No other evidence of acute cortical stroke seen. 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 The CT exam was performed using one or more of the following dose reduction techniques: Automated exposure control, adjustment of the mA and/or kV according to patient size, or use of iterative reconstruction technique. PROCEDURE INTERPRETED AT [facility] DEPARTMENT OF RADIOLOGY Final Report Signed by: Dr. Brit Martin
--- NOTE | 2016-11-07 11:58 | XRay Report ---
History is cardiomegaly Comparison 10/13/2016 The cardiac silhouette is enlarged with pacemaker present Prior pulmonary edema has improved in the interval. Minimal interstitial opacities remain similar on multiple prior studies without consolidated infiltrate. Impression: Interval improvement of prior pulmonary edema PROCEDURE INTERPRETED AT [facility] DEPARTMENT OF RADIOLOGY Final Report Signed by: Dr. Brit Martin
[2016-11-07 12:07] LABS: Apearance,Urine CLOUDY (Clear); Bilirubin,Urine Negative (Negative); Blood, Urine Small mg/dL (Negative); Glucose,Urine (UA) Negative (Negative); Ketones,Urine Negative (Negative); Nitrite,Urine Negative (Negative); Protein,Urine 100 MG/DL; RBC,Urine 26 /HPF (0-4); Urine Color Yellow (Yellow); Urine Specific Gravity 1.008 (1.001-1.035); Urine Urobilinogen < 2.0 EU/DL (0.2-1.0); WBC,Urine 696 /HPF (0-6)
[2016-11-07 12:11] LABS: Basophils # 0.1 10*3/uL (0.0-0.2); Basophils % 0.6 % (0.0-0.8); Eosinophils # 0.1 10*3/uL (0.0-0.87); Eosinophils % 1.7 % (0.00-10.9); Hematocrit 35.5 VOL% (35.7-47.0); Hemoglobin 11.2 GM/DL (12.0-16.0); Immature Granulocytes % 0.6 %; Immature Granulocytes Absolute 0.05 #; Lymphocytes # 2.4 10*3/uL (1.4-4.0); Lymphocytes % 28.6 % (21.3-54.2); Mean Corpuscular HGB Conc 31.5 GM/DL (32-36); Mean Corpuscular Hemoglobin 29 PG (27-34); Mean Corpuscular Volume 91.5 FL (87-102); Mean Platelet Volume 10.5 FL (9.6-12.0); Monocytes % 12.1 % (1.7-12.7); Neutrophils # 4.7 10*3/uL (1.4-7.4); Neutrophils % 56.4 % (38.7-73.9); Platelet Count 200 T/CUMM (130-400); Red Blood Count 3.88 MC/CUMM (3.8-5.5); White Blood Count 8.3 T/CUMM (4-12)
[2016-11-07 12:22] LABS: INR 1.1; PT Patient Result 11.3 SECS
[2016-11-07 12:41] LABS: Alanine Aminotransferase 22 U/L (13-56); Albumin 2.3 G/DL (3.4-5.0); Alkaline Phosphatase 201 U/L (45-117); Aspartate Amino Transferase 25 U/L (0-37); Bilirubin,Total < 0.39 MG/DL (0.2-1.0); Blood Urea Nitrogen 23 MG/DL (7-18); Calcium 8.7 MG/DL (8.5-10.1); Glucose 129 MG/DL (74-106); Osmolality,Calculated 278.8 MOS/KG (273-304); Sodium 137 MMOL/L (136-145); Total Protein 6.7 G/DL (6.4-8.3)
[2016-11-07] MEDS ORDERED: LEVOFLOXACIN INJ 500 MG in PREMIX 1 EACH IV STA (12:58)
--- NOTE | 2016-11-07 13:01 | Emergency Department Note ---
Harry Foley Manpreet, am scribing for, and in the presence of, Audie Lawson MD 11:35. Renny Foley Phillip K, MD, personally performed the services described in this documentation, ascribed by Scott Mcdonald in my presence, and it is both accurate and complete . Arrival - Arrival Chief Complaint: Neuro ED Nursing Triage Note: they were taking pt to give her a bath at 1000. pt suddenly had rt side weakness and rt facial droop. acu check was 109 Mode of Arrival: Stretcher Limitations: No Limitations Source: Patient, Family, EMS - History of Present Illness HPI Narrative: Pt is a 81 y/o female, with PMHx of HTN, pacemaker, CHF, IDDM, NIDDM, and COPD, who is brought to the ED via EMS from a halfway after the halfway staff noticed the pt having right-sided weakness and right-sided facial droop at 1000. Pt is accompanied by her daughter, her primary historian, who states the Pt has been bed ridden since September 21. Pt denies any Abd pain, fever, or cough. Pt is SOB but that is her baseline. The daughter also c/o the pt having a sore on her bottom. No other pains/complaints reported to ED. Onset (ago): hour(s) Consistency: constant Severity: moderate Severity scale (1-10): 4 Allergies/Adverse Reactions: Allergies Allergy/AdvReac Type Severity Reaction Status Date / Time Penicillins Allergy ANAPHYLAXIS Verified 09/20/16 11:00 Home Medications: Home Medications Medication Instructions Recorded Confirmed Type Allopurinol [Zyloprim] 100 mg PO DAILY 02/05/16 09/20/16 History Aspirin EC Tab 81 mg PO DAILY 02/05/16 09/20/16 History Furosemide Tab [Lasix Tab] 40 mg PO DAILY PRN 02/05/16 09/20/16 History Insulin NPH Human Isophane 10 unit SUBCUT BID 02/05/16 09/20/16 History [NovoLIN N] Letrozole [Femara] 2.5 mg PO DAILY 02/05/16 09/20/16 History Montelukast Tab [Singulair Tab] 10 mg PO BEDTIME 02/05/16 09/20/16 History Thyroid [[place] Thyroid] 30 mg PO DAILY 02/05/16 09/20/16 History Tiotropium Inhalation [Spiriva 18 mcg INH DAILY 02/05/16 09/20/16 History Handihaler] HYDROcodone/ACETAMIN 10-325 [[place] 1 tablet PO Q6H PRN #20 tablet 02/10/1609/20 Rx 10-325] Albuterol Inhaler [Proventil 2 puff INH Q4H PRN 07/27/16 09/20/16 History Inhaler] Linaclotide [Linzess] 145 mcg PO AC BREAKFAST 07/27/16 09/20/16 History Albuterol Sulfate [Proair HFA] 2 puff INH Q4H PRN 09/20/16 09/20/16 History Bisacodyl Tab [Dulcolax Tab] 10 mg PO DAILY 09/20/16 09/20/16 History Acetaminophen Supp [Tylenol Supp] 325 mg RECTAL Q4H PRN supp 10/10/16 Rx Albuterol/Ipratropium Neb [Duoneb] 3 ml RESP TX RT Q4H 10/10/16 Rx Collagenase Oint [Santyl Oint] 1 applic TOP DAILY applic 10/10/16 Rx Enoxaparin [Lovenox] 40 mg SUBCUT Q24H syringe 10/10/16 Rx Insulin Lispro [HumaLOG] See Protocol SUBCUT Q6HR unit 10/10/16 Rx Linezolid Inj [Zyvox Inj] 600 mg IV Q12H 10/10/16 Rx Lisinopril [Prinivil] 2.5 mg PO BID tablet 10/10/16 Rx Metoclopramide Inj [Reglan Inj] 5 mg IV Q6H vial 10/10/16 Rx Micafungin [Mycamine] 100 mg IV Q24H vial 10/10/16 Rx Mupirocin 2% Oint [Bactroban 2% 1 applic TOP BID applic 10/10/16 Rx Oint] Nebivolol [Bystolic] 2.5 mg PO DAILY tablet 10/10/16 Rx Phenol 1.4% Throat [place] 5 spray PO Q2H PRN bottle 10/10/16 Rx [Chloraseptic [place]] Skin Healing Oint (Aquaphor) 1 applic TOP PRN PRN applic 10/10/16 Rx [Aquaphor] Review of System - Review of System 12 point system: reviewed and no additional remarkable complaints except as stated - Review of System Constitutional: Absent: chills, diaphoresis, fever, weakness Respiratory: Absent: cough, respiratory distress Cardiovascular: Absent: chest pain, dyspnea on exertion Gastrointestinal: Absent: abdominal pain, nausea, vomiting Skin: Present: other (Sore on bottom) Neurological: Present: weakness (Right-sided weakness), other (Left-sided facial droop) Medical,Surgical,& Family Hx - Medical History Cardio: History of: CHF, Hypertension, Pacemaker Endocrine: History of: Diabetes Mellitus (IDDM), Diabetes Mellitus (NIDDM), Thyroid Disorder Respiratory: History of: Asthma, COPD Gastrointestinal: History of: Bowel Obstruction Musculoskeletal: History of: Musculoskeletal Problems (right knee arthritis) Reproductive: History of: Breast Cancer (2015) Other: History of: Cancer - Surgical History Abdominal Surgeries: Surgical HX of: Abdominal Surgery (bowel obstruction surgery), Hernia Repair - Family History Family History: Reports;: Family Diabetes (brothers and sisters) - Social History Smoking Status: Never smoker Frequency of Alcohol Use: None Type of Drug Use: None Exam Vital Signs: Vital Signs Temperature 97.0 F L 11/07/16 11:11 Pulse Rate 68 11/07/16 11:11 Respiratory Rate 18 11/07/16 11:32 Blood Pressure 146/60 11/07/16 11:11 O2 Sat by Pulse Oximetry 97 11/07/16 11:11 - General General appearance: alert, in no apparent distress - Head Head exam: Present: atraumatic, normocephalic, normal inspection - Eye Eye exam: Present: normal appearance, PERRL, EOMI - ENT ENT exam: Present: normal exam, normal oropharynx, mucous membranes moist, TM's normal bilaterally - Neck Neck exam: Present: normal inspection, full ROM, trachea midline. Absent: tenderness - Chest Chest inspection: Present: normal inspection, symmetric chest wall rise. Absent : tenderness - Respiratory Respiratory exam: Present: prolonged expiratory phase, rales (Bibasal Rales). Absent: normal lung sounds bilaterally, accessory muscle use, respiratory distress - Cardiovascular Cardiovascular exam: Present: regular rate, normal rhythm, normal heart sounds - Abdominal Exam Abdominal exam: Present: soft, distention, normal bowel sounds. Absent: tenderness, guarding, rebound, diminished bowel sounds - Extremities Exam Extremities exam: Present: normal inspection. Absent: full ROM (Weakness in bilat LE's), tenderness - Back Exam Back exam: Present: other (4x6 cm Sacral decubitus ulcer). Absent: normal inspection - Neurological Exam Neurological exam: Present: alert, oriented X3, CN II-XII intact, reflexes normal - Psychiatric Psychiatric exam: Present: normal affect, normal mood - Skin Skin exam: Present: warm, dry, intact, normal color. Absent: pallor Course Course Narrative: Patient discussed with the hospitalist. Results - Labs CBC & BMP: 11/07/16 11:49 11/07/16 11:49 Lab Results: I have reviewed the patients labs (Urinalysis shows numerous white blood cells in clumps) - EKG EKG results: interpreted by YENI, sinus rhythm (Left bundle branch block) - Diagnostic Findings Procedure: Chest x-ray: report reviewed by me (Interval improvement of prior pulmonary edema.), CT: report reviewed by me (CT Head/Brain w/o Con: Very questionable acute cortical ischemia adjacent to tiny chronic cortical infarct in the left front oparietal region.) Disposition Clinical Impression: Possible small left CVA, Urinary tract infection Case discussed with: patient, patient's family Disposition: Still a Patient Condition: Guarded Additional Instructions: Admit to the hospitalist.
[2016-11-07] MEDS ORDERED: LEVOFLOXACIN INJ 0 ML IV ONE (13:06)
[2016-11-07] MEDS ORDERED: DEXTROSE 50% 25 GM/50 ML VIAL IV PRN (13:41)
[2016-11-07] MEDS ORDERED: GLUCAGON 1 MG VIAL IM PRN (13:41)
[2016-11-07] MEDS ORDERED: diphenhydrAMINE CAP 25 MG CAPSULE PO PRN (13:41)
[2016-11-07] MEDS ORDERED: ONDANSETRON 4 MG/2 ML VIAL IV PRN (13:41)
[2016-11-07] MEDS ORDERED: MORPHINE 2 MG/1 ML SYRINGE IV PRN (13:41)
[2016-11-07] MEDS ORDERED: ACETAMINOPHEN 325 MG TABLET PO PRN ×2 (13:41)
[2016-11-07] MEDS ORDERED: MAGNESIUM HYDROXIDE SUSP 30 ML UDCUP PO PRN (13:47)
--- NOTE | 2016-11-07 13:50 | Hospitalist History & Physical ---
<Mervat Adams - Last Filed: 11/07/16 13:40> Assessment and Plan - Time spent with patient Time spent with patient: Greater than 30 minutes (1) COPD exacerbation Status: Acute Assessment and plan: Ms. Oconnell is a very pleasant 81-year-old -I[place]ic female with multiple medical problems who was recently discharged from the hospital with pneumonia, fungemia, and small bowel obstruction. She spent 3 weeks at [facility] and the last week in a shelter. She was readmitted by the hospitalist service today with a new onset CVA, UTI, and mild COPD exacerbation. Dr. Mars will see and examine patient with further recommendations to follow. CVA--patient has a new onset of right-sided weakness with no other findings. CT is showing an acute stroke. Dr. Manley from neurology has been consulted. Patient will also be evaluated by PT and OT. Patient has been bedridden since her previous hospital admission. UTI--Hawthorne has been placed and she does have purulent urine. Her white count is normal and she is asymptomatic. She has been started on Levaquin daily and we will continue to monitor. COPD exacerbation--patient has a mild expiratory wheeze and coarseness bilaterally. Patient's current nebulizer treatments were restarted along with the addition of Levaquin, as needed duo nebs, and some low-dose steroids. Sacral wound--patient has a 3 x 4 cm wound on her sacrum. This is clean with no signs of infection. Will consult wound care nurse Mary for wound care orders while patient is in the hospital. Diabetes--patient's home insulin are being held and she will be started on sliding scale insulin. We will continue to monitor her blood sugars while in the hospital. We will also check a hemoglobin A1c with the morning labs. Hypertension/nonischemic cardiomyopathy--have restarted patient's home medicines. Her blood pressures and vitals look good at this time. Her cell tuber hand is Dr. Petty. Do not see any reason that he needs to be consulted at this time. We will continue to monitor. Chronic kidney disease--patient's creatinine is 1.3 which is on the low side of her normal. Dr. Medeiros is her supervisor of guidance and testing but do not see any reason to consult him at this time. (2) Hypothyroidism Status: Acute (3) History of breast cancer Status: Chronic (4) Diabetes mellitus Status: Chronic Qualifiers: Diabetes mellitus type: type 2 Chronic kidney disease stage: stage 2 (mild ) (5) Status post placement of cardiac pacemaker Status: Chronic (6) Chronic renal insufficiency Status: Chronic Qualifiers: Chronic kidney disease stage: stage 2 (mild) Qualified Code(s): N18.2 - Chronic kidney disease, stage 2 (mild) (7) Nonischemic cardiomyopathy Status: Chronic (8) Hypertension Status: Chronic Qualifiers: Hypertension type: essential hypertension Qualified Code(s): I10 - Essential (primary) hypertension (9) Decubitus skin ulcer Status: Acute Qualifiers: Pressure ulcer location: sacral region Pressure ulcer stage: stage 2 Qualified Code(s): L89.152 - Pressure ulcer of sacral region, stage 2 (10) Urinary tract infection Status: Acute History of Present Illness Chief complaint: Right-sided weakness History of present illness: Ms. Oconnell is a 81 year old -[place]ic female with history of hypertension , diabetes, nonischemic cardiomyopathy, pacemaker, hypothyroidism, COPD, chronic renal insufficiency, obesity, sleep apnea, and history of breast cancer presenting to the ED by EMS from her shelter with complaints of right- sided weakness. According to patient she is fine and she is not having any problems or any complaints. The shelter sent her with an acute onset of right-sided weakness and facial droop. Patient's niece is present and says she has been confused for a couple of days and telling stories. Patient denies headache, chills, fevers, dysphagia, chest pain, shortness of breath, abdominal pain, dysuria, or lower extremity edema. Upon exam patient is awake and alert and answering questions appropriately. Her cranial nerves are grossly intact. She is relatively weaker on the right upper and lower extremity than the left at 3/5 versus 4/5 on the left. Her reflexes and sensory system are intact distally. Patient is nonambulatory therefore coordination, station and gait could not be evaluated. Patient had a Hawthorne placed in the ED and she does have purulent urine in the Hawthorne. She also has bilateral coarseness with an audible wheeze. She has a clean sacral wound as well. CT the head showing a questionable acute cortical ischemia adjacent to tiny chronic cortical infarcts in the left frontoparietal region. Her white count is normal at 8.3, she is anemic at 11.2/35.5, coags are okay, creatinine stable at 1.3, blood sugars okay at 129, and UTI with large leukocytes. She is afebrile and her vital signs are stable at this time. Patient had recently been admitted at the end of August to the hospitalist service with pneumonia and small bowel obstruction and found anemia. Her bowel obstruction resolved without surgery and she was transferred to LTAC on antibiotics. Patient spent approximately 3 weeks at [facility] and had been recently placed in a shelter. Patient requesting to go back there as soon as she can. Patient's case was discussed with Dr. Lawson the ED physician and Dr. Mars the admitting hospitalist, and it was agreed patient would be admitted for further evaluation and treatment. Patient' s medicines have been reconciled and she is a full code. Home Medications Medication Instructions Recorded Confirmed Type Skin Healing Oint (Aquaphor) 1 applic TOP PRN PRN applic 10/10/16 11/07/16 Rx [Aquaphor] Albuterol/Ipratropium Neb [Duoneb] 3 ml RESP TX RT Q6H 11/07/16 11/07/16 History Fluconazole Tab [Diflucan Tab] 400 mg PO DAILY 11/07/16 11/07/16 History Insulin Glargine [Lantus] 10 unit SUBCUT DAILY 11/07/16 11/07/16 History Insulin Regular, Human [NovoLIN R] See Protocol SUBCUT ACHS 11/07/16 11/07/16 History Magnesium Hydroxide [Milk of 30 ml PO Q24H PRN 11/07/16 11/07/16 History Magnesia] Metoclopramide HCl 10 mg PO Q6H 11/07/16 11/07/16 History Multivitamin (Centrum) [Centrum 1 tablet PO DAILY 11/07/16 11/07/16 History Tab] Nebivolol [Bystolic] 5 mg PO DAILY 11/07/16 11/07/16 History Acetaminophen Tab [Tylenol Tab] 325 mg PO Q4H PRN tablet 11/09/16 Rx Albuterol/Ipratropium Neb [Duoneb] 3 ml RESP TX RT Q6H #30 11/09/16 Rx Clopidogrel [Plavix] 75 mg PO DAILY #30 tablet 11/09/16 Rx Docusate Sodium Cap [Colace Cap] 100 mg PO BID PRN capsule 11/09/16 Rx Ertapenem [INVanz] 1,000 mg IV Q24H #7 vial 11/09/16 Rx Famotidine Tab [Pepcid Tab] 20 mg PO BID #60 tablet 11/09/16 Rx Levofloxacin Tab [Levaquin Tab] 250 mg PO DAILY #14 tablet 11/09/16 Rx guaiFENesin/DM ER 600-30 [Mucinex 1 tablet PO BID PRN #20 tablet 11/09/16 Rx Dm 600-30 MG] Allergies Allergy/AdvReac Type Severity Reaction Status Date / Time Penicillins Allergy ANAPHYLAXIS Verified 09/20/16 11:00 Medical,Surgical,& Family Hx - Medical History Cardio: History of: CHF, Hypertension, Pacemaker Endocrine: History of: Diabetes Mellitus (IDDM), Diabetes Mellitus (NIDDM), Thyroid Disorder Respiratory: History of: Asthma, COPD Gastrointestinal: History of: Bowel Obstruction Musculoskeletal: History of: Musculoskeletal Problems (right knee arthritis) Reproductive: History of: Breast Cancer (2014) Other: History of: Cancer - Surgical History Abdominal Surgeries: Surgical HX of: Abdominal Surgery (bowel obstruction surgery), Hernia Repair - Family History Family History: Reports;: Family Diabetes (brothers and sisters) - Social History Smoking Status: Never smoker Frequency of Alcohol Use: None Type of Drug Use: None Marital Status: Lives With:: alf Functional capacity: bed bound Review of systems: A complete 10 system review of systems was obtained and pertinent positives and negatives per HPI Exam - Constitutional Vitals: Period Temp Pulse Resp BP Sys/[place] Pulse Ox Last 24 Hr 97.0 F-97.0 F 60-68 18-18 146-146/60-60 97 Exam: Constitutional System: No distress. No tremulousness. Head: Normocephalic, atraumatic. Ears, Nose and Throat System: No evidence of Otitis or Mastoiditis. No epistaxis or discharge, tongue midline Eyes System: Pupils equal, round, and reactive. Extraocular muscles intact. Neck: Supple, without adenopathy, No jugular venous distention. No thyromegaly, neck mass, or prior surgery apparent. Respiratory System: Chest coarseness bilaterally, expiratory wheeze to auscultation. Cardiovascular System: Heart with regular rate and rhythm. No murmur. GI System: Abdomen soft, nontender. Hypoactive active bowel sounds present. Musculoskeletal System: limbs with no pedal edema. Diminished distal pulses. Right upper and lower extremity 3/5, left upper and lower extremity 4/5, sensory intact bilaterally, Neurological System: No discernable sensory deficit. No aphasia Psychiatric System: Conversation is rational Results - Labs CBC & BMP: 11/07/16 11:49 11/07/16 11:49 Lab Results: I have reviewed the past 24 hour labs - EKG EKG results: sinus rhythm - Impressions Sinus rhythm with marked left axis deviation and left bundle branch block - Diagnostic Findings Procedure: Chest x-ray: report reviewed by me (Interval improvement of pulmonary prior pulmonary edema), CT: report reviewed by me (CT the head shows questionable acute cortical ischemia adjacent to tiny chronic cortical infarct in the left frontoparietal region) Quality Measures - Stroke Onset of Symptoms Date: 11/07/16 Onset of Symptoms Time: 10:00 <Jorge Mars - Last Filed: 11/10/16 18:37> History of Present Illness History of present illness: Ms. Oconnell is a 81 year old female Results - Labs CBC & BMP: 11/09/16 01:59 11/09/16 01:59
[2016-11-07] MEDS ORDERED: ALBUTEROL 2.5 MG/3 ML NEB RESP TX PRN (14:06)
[2016-11-07] MEDS: methylPREDNISolone SOD SUC 40 MG/1 ML VIAL IV SCH (19:55)
[2016-11-07] MEDS: ALBUTEROL/IPRATROPIUM 3 ML NEB RESP TX SCH (20:03)
[2016-11-07] MEDS: SKIN HEALING OINT (AQUAPHOR) 50 GM TUBE TOP PRN (20:05)
[2016-11-07] MEDS: FLUCONAZOLE 200 MG TABLET PO SCH (20:07)
[2016-11-07] MEDS: guaiFENesin/DM ER 600-30 MG TABLET PO PRN (20:07)
[2016-11-07] MEDS: METOCLOPRAMIDE 10 MG TABLET PO SCH ×2 (20:07→21:27)
[2016-11-07] MEDS: SODIUM CHLORIDE 0.9% 1,000 ML IV SCH (20:08)
[2016-11-07] MEDS: NEBIVOLOL 5 MG TABLET PO SCH (20:08)
[2016-11-07] MEDS: MULTIVITAMIN (CENTRUM) TABLET PO SCH (20:08)
[2016-11-07] MEDS: DOCUSATE SODIUM 100 MG CAPSULE PO PRN (20:09)
[2016-11-07] MEDS: PANTOPRAZOLE 40 MG TABLET PO SCH (20:09)
[2016-11-07] MEDS: INSULIN LISPRO 100 UNIT/ML SUBCUT SCH (20:10)
[2016-11-08] MEDS: ALBUTEROL/IPRATROPIUM 3 ML NEB RESP TX SCH ×5 (02:03→23:56)
[2016-11-08] MEDS: SODIUM CHLORIDE 0.9% 1,000 ML IV SCH ×3 (05:02→20:35)
[2016-11-08] MEDS: METOCLOPRAMIDE 10 MG TABLET PO SCH ×4 (05:02→22:02)
[2016-11-08] MEDS: methylPREDNISolone SOD SUC 40 MG/1 ML VIAL IV SCH ×2 (05:02→20:34)
--- NOTE | 2016-11-08 06:06 | EKG Report ---
Stationary ECG Study [facility] ER Test Date: 11/07/2016 12:09:07 PM Pat Name: KIKI ANGEL Department: Room: 217 Gender: F Stopperer Assembler: : 1935 Requested by: Audie Shipley Order Number: [id number] Reading MD: DEBBIE BRAVO Intervals [place] Rate: 63 P: 82 NV: 166 QRS: -33 QRSD: 154 T: 138 QT: 488 QTc: 495 Interpretive Statements SINUS RHYTHM MARKED LEFT AXIS DEVIATION LEFT BUNDLE BRANCH BLOCK Electronically Signed On 11-11-16 15:21:23 CDT by DEBBIE BRAVO [email or web address]
[2016-11-08 06:53] LABS: Basophils % 0.1 % (0.0-0.8); Hematocrit 28.2 VOL% (35.7-47.0); Immature Granulocytes % 0.7 %; Immature Granulocytes Absolute 0.05 #; Lymphocytes # 1.2 10*3/uL (1.4-4.0); Lymphocytes % 16.4 % (21.3-54.2); Mean Corpuscular HGB Conc 31.9 GM/DL (32-36); Mean Corpuscular Hemoglobin 29 PG (27-34); Mean Corpuscular Volume 90.4 FL (87-102); Monocytes # 0.1 10*3/uL (0.11-0.8); Monocytes % 1.5 % (1.7-12.7); Neutrophils # 6.2 10*3/uL (1.4-7.4); Neutrophils % 81.3 % (38.7-73.9); Platelet Count 196 T/CUMM (130-400); Red Blood Count 3.12 MC/CUMM (3.8-5.5); Red Cell Distribution Width 16.8 % (9.3-17.3); White Blood Count 7.6 T/CUMM (4-12)
[2016-11-08 06:58] LABS: Calcium 8.6 MG/DL (8.5-10.1); Magnesium 1.9 MG/DL (1.8-2.4); Osmolality,Calculated 283.8 MOS/KG (273-304); Potassium 5.2 MMOL/L (3.5-5.1); Risk Ratio 3.11; VLDL CHOLESTEROL 11.2 MG/DL
[2016-11-08 07:21] LABS: Band Neutrophils 1 % (0-10); Lymphocytes 13 % (20-55); Segmented Neutrophils 80 % (50-85); Total Cells Counted 100
[2016-11-08 07:23] LABS: Hypochromasia 1+; Microcytosis 1+; Ovalocytes Slight; Platelet Estimate Adequate
--- NOTE | 2016-11-08 07:50 | CT Report ---
Indication: Stroke Comparison: Noncontrast CT head dated 11/07/2016 Technique: Serial axial tomographic images of the brain and neck are obtained without the use of intravenous contrast. Then, following the IV administration of intravenous contrast contrast, axial tomographic images of the brain and neck are obtained utilizing an angiogram protocol. Multiplanar reformatted images are obtained and reviewed. 3-D/MIP images of the neck and intracranial vasculature were created at a separate workstation and submitted for review. Total DLP: 133 Findings: CTA HEAD: Generalized atrophy is noted with prominence of sulci and ventricles. The midline structures are nondisplaced. There is no evidence of hydrocephalus. There is no evidence of acute intracranial hemorrhage. The aguila-white matter differentiation is grossly maintained. The visualized paranasal sinuses, mastoid air cells and middle ear cavities are clear. The included orbits are intact. The visualized osseous structures and overlying soft tissues of the skull and face demonstrate no acute abnormality. The anterior circulation demonstrates no aneurysm, AVM or occlusion. Mild atherosclerotic calcification is noted within the cavernous and supraclinoid internal carotid arteries with suggestion of mild luminal stenosis. The left A1 segment of anterior cerebral artery is slightly hypoplastic but does appear patent. ICA terminus and proximal MCA vessels appear widely patent. There is some suggestion of slight pruning of the distal left MCA branches, which is otherwise indeterminant. The posterior circulation demonstrates no aneurysm, AVM or occlusion. Intradural vertebral arteries are patent with no significant atherosclerotic plaque. The right intradural vertebral artery is somewhat diminutive in size but patent. Basilar artery and basilar termination appear within normal limits. Proximal posterior cerebral arteries are widely patent with no significant atherosclerotic disease. CTA NECK: Motion limits evaluation of portions of the lower neck/chest. There is moderate arthritic carotid plaque within the thoracic aorta and proximal great vessels which otherwise appear widely patent. Bilateral subclavian arteries are also essentially widely patent with minimal atherosclerotic plaque and luminal stenosis noted on the right. Bilateral vertebral arteries are not well visualized due to motion. The proximal right vertebral artery is diminutive and poorly opacified until approximately the C4 level. The left vertebral artery is dominant and widely patent throughout its course in the neck. Bilateral common carotid arteries are essentially widely patent with no significant atherosclerotic plaque. Right carotid bifurcation demonstrates prominent medially calcified atherosclerotic plaque with only mild (30%) luminal stenosis of the proximal internal carotid artery. Of note, a retropharyngeal course of the right internal carotid artery is noted with the internal carotid artery positioned at the midline posterior to the pharynx. External carotid artery and branches are widely patent. Internal carotid artery diameter is approximately 5.6 mm. Left carotid bifurcation demonstrates prominent atherosclerotic plaque. There is difficulty visualizing the ICA lumen but there appears to be severe (85-90%) luminal stenosis at the proximal internal carotid artery which is otherwise patent. Left internal carotid artery measures 3.4 mm diameter. The external carotid artery and branches are patent. There is also moderate stenosis at the proximal external carotid artery due to calcified plaque at the bifurcation. Multilevel disc space loss with endplate sclerosis and facet arthropathy is noted from C3 through T1. No acute fractures are identified. No suspicious osseous lesions are identified. Prominent degenerative changes are noted throughout the cervical spine. No acute soft tissue normality is identified within the neck. There is no significant adenopathy. There is no abnormal enhancement. Thyroid gland appears grossly unremarkable. Prominent centrilobular and paraseptal emphysematous changes are noted within both lung apices. There is also minimal interlobular septal thickening which may represent a degree of underlying interstitial edema or interstitial infiltrates. IMPRESSION: Prominent atherosclerotic plaque at the bilateral carotid bifurcations with severe (85-90%) luminal stenosis suggested at the proximal left internal carotid artery. Mild luminal stenosis suggested at the proximal right internal carotid artery. No evidence of intracranial aneurysm, AVM or central vascular occlusion. Subtle decrease in vessel attenuation within the distal left MCA branches is suggested. Further evaluation with MR imaging of the brain would be helpful to assess for potential left frontoparietal cortical infarct if clinically indicated. PROCEDURE INTERPRETED AT [facility] DEPARTMENT OF RADIOLOGY Final Report Signed by: Anshu Reid
--- NOTE | 2016-11-08 07:54 | XRay Report ---
Exam: XR chest 1V Indication: Cardiomegaly Shortness of breath Comparison study: Prior chest radiograph 11/07/2016 at 11:45 AM Findings: Cardiac silhouette is enlarged, similar prior. Right chest pacemaker device and single wire lead are in similar positions. There has been slight worsening of perihilar and basilar interstitial airspace opacities concerning for developing pulmonary edema or infectious/inflammatory infiltrates. There is no pneumothorax. Impression: Similar cardiomegaly with slight worsening of interstitial and airspace opacities may represent pulmonary edema changes although developing infectious/inflammatory infiltrates and small pleural effusions are not excluded. PROCEDURE INTERPRETED AT [facility] DEPARTMENT OF RADIOLOGY Final Report Signed by: Anshu Reid
--- NOTE | 2016-11-08 08:56 | Quality Management ---
Stroke TPA This patient's last known well time was 11/07 @ 1000, with an arrival time of @ 1110. This is within the appropriate timeframe to receive TPA. According to documentation, the patient has not received the medication and there are no documented contraindications. To meet the requirements of this metric you must provide a contraindication by 11/08 @ 2359. To complete this task and meet the meaningful use requirement you will need to utilize the Order Management screen. DO NOT ORDER OR PROVIDE CONTRAINDICATIONS WITHIN THIS QUERY. THIS IS A MEANINGFUL USE REQUIREMENT. Thank you, Magi Augustin,Rn Clinical Embroidery Machine Operator [place] [phone] MARIAN
[2016-11-08] MEDS: guaiFENesin/DM ER 600-30 MG TABLET PO PRN (11:10)
[2016-11-08] MEDS: MULTIVITAMIN (CENTRUM) TABLET PO SCH (11:10)
[2016-11-08] MEDS: FLUCONAZOLE 200 MG TABLET PO SCH (11:11)
[2016-11-08] MEDS: NEBIVOLOL 5 MG TABLET PO SCH (11:11)
[2016-11-08] MEDS: DOCUSATE SODIUM 100 MG CAPSULE PO PRN (11:11)
[2016-11-08] MEDS: ASPIRIN 325 MG TABLET PO SCH (11:11)
[2016-11-08] MEDS: INSULIN LISPRO 100 UNIT/ML SUBCUT SCH ×2 (11:12→18:33)
[2016-11-08] MEDS: PANTOPRAZOLE 40 MG TABLET PO SCH (11:12)
[2016-11-08] MEDS: SKIN HEALING OINT (AQUAPHOR) 50 GM TUBE TOP PRN (11:25)
--- NOTE | 2016-11-08 16:29 | Neurology Consult Note ---
History of Present Illness History of present illness: Patient is a poor historian. History basically obtained from the chart. Ms. Oconnell is a 81 year old -[place] female with history of hypertension , diabetes, nonischemic cardiomyopathy, pacemaker, hypothyroidism, COPD, chronic renal insufficiency, obesity, sleep apnea, and history of breast cancer presenting to the ED by EMS from her [facility] with complaints of right- sided weakness. The [facility] sent her with an acute onset of right-sided weakness and facial droop. Patient family reported that she has been confused for a couple of days and telling stories. There was no history of headache, chills, fevers, dysphagia, chest pain, shortness of breath, abdominal pain, dysuria, or lower extremity edema. She has a clean sacral wound as well. CT the head showing a questionable acute cortical ischemia adjacent to tiny chronic cortical infarcts in the left frontoparietal region. Patient spent approximately [address] [facility] and had been recently placed in a [facility]. Patient requesting to go back there as soon as she can. She is a full code. CT exam revealed bilateral carotid artery stenosis at the bifurcation. Home Medications Medication Instructions Recorded Confirmed Type Skin Healing Oint (Aquaphor) 1 applic TOP PRN PRN applic 10/10/16 11/07/16 Rx [Aquaphor] Albuterol/Ipratropium Neb [Duoneb] 3 ml RESP TX RT Q6H 11/07/16 11/07/16 History Fluconazole Tab [Diflucan Tab] 400 mg PO DAILY 11/07/16 11/07/16 History Insulin Glargine [Lantus] 10 unit SUBCUT DAILY 11/07/16 11/07/16 History Insulin Regular, Human [NovoLIN R] See Protocol SUBCUT ACHS 11/07/16 11/07/16 History Magnesium Hydroxide [Milk of 30 ml PO Q24H PRN 11/07/16 11/07/16 History Magnesia] Metoclopramide HCl 10 mg PO Q6H 11/07/16 11/07/16 History Multivitamin (Centrum) [Centrum 1 tablet PO DAILY 11/07/16 11/07/16 History Tab] Nebivolol [Bystolic] 5 mg PO DAILY 11/07/16 11/07/16 History Allergies Allergy/AdvReac Type Severity Reaction Status Date / Time Penicillins Allergy ANAPHYLAXIS Verified 09/20/16 11:00 ROS unobtainable: due to mental status Medical,Surgical,& Family Hx - Medical History Cardio: History of: CHF, Hypertension, Pacemaker Endocrine: History of: Diabetes Mellitus (IDDM) ([facility]..), Diabetes Mellitus (NIDDM), Thyroid Disorder Respiratory: History of: Asthma, COPD Genitourinary: History of: Recurring Urinary Tract Infections Gastrointestinal: History of: Bowel Obstruction (TWO BOWEL SURGERIES.), Gastrointestinal Cancer (CA OF STOMACH.) Musculoskeletal: History of: Musculoskeletal Problems (right knee arthritis) Reproductive: History of: Breast Cancer (2015) Other: History of: Cancer - Surgical History Neurologic Surgeries: Patient denies: Neurologic Surgery Abdominal Surgeries: Surgical HX of: Abdominal Surgery (bowel obstruction surgery), Hernia Repair - Family History Family History: Reports;: Family Diabetes (brothers and sisters) - Social History Smoking Status: Former smoker Frequency of Alcohol Use: None Type of Drug Use: None Exam - Constitutional Vitals: Period Temp Pulse Resp BP Sys/Quezada Pulse Ox Last 24 Hr 97 F-97.7 F 61-78 15-22 122-177/51-77 91-100 Exam: GENERAL: Patient is in no acute distress. NECK: Neck is supple. There is no JVD. No carotid bruits present. No thyroid masses. CVS: First and second heart sounds are normal. There is no S3 present. Regular rate and rhythm. RESPIRATORY: Lungs are clear to auscultation without any rales or rhonchi. ABDOMEN: Soft and non-tender. Bowel sounds are present. There is no hepatosplenomegaly. EXT: There is no palpable edema. Peripheral pulses are present. Skin: No rashes Central Nervous system: General: Alert, awake Speech: Non-Fluent but some dysarthria Comprehension: Fair Facial expressions: Normal Cranial Nerves: CN1/Olfactory: Normal CN II/ Optic: Normal, Visual Mejia unreliable CN III, and : VALENTINA & EOMI CN V: Normal & intact CN VII: Right central facial CNVIII: Normal CN XI/X/XI/XII: Intact and Normal Motor: Bulk and Tone is normal. Strength in the right 2/5 Strength in the left 3-4/5 Sensory: Cannot be assessed Reflexes: 1+ and symmetrical Cerebellar function: Cannot be assessed Toes: Equivocal Gait: Cannot be assessed Results - Labs CBC & BMP: 11/08/16 05:01 11/08/16 05:01 Assessment and Plan (1) Acute CVA (cerebrovascular accident) Status: Acute Assessment and plan: Cont ASA a day Add Plavix 75 mg p.o. daily Consult PT OT and ST Given her advanced age and multiple comorbidities, recovery in the right side of the weakness is guarded Current Visit: Yes (2) Carotid artery disease Status: Acute Assessment and plan: Given her advanced age and multiple medical problems and bed ridden status, patient may not be a good candidate for surgical intervention. Thank you for the consult Current Visit: Yes
--- NOTE | 2016-11-08 16:48 | Hospitalist Progress Note ---
Hospitalist: Subjective Interval history: Patient is a poor historian. History basically obtained from the chart. Ms. Oconnell is a 81 year old -Somali female with history of Ess hypertension, diabetes, nonischemic cardiomyopathy, pacemaker, hypothyroidism, COPD, CKD-III, obesity, sleep apnea, and history of breast cancer presenting [facility] the ED by EMS from her [facility] with complaints of right-sided weakness. The [facility] sent her with an acute onset of right-sided weakness and facial droop. Patient family reported that she has been confused for a couple of days and telling stories. There was no history of headache, chills, fevers, dysphagia, chest pain, shortness of breath, abdominal pain, dysuria, or lower extremity edema. She has a clean sacral wound as well. CT head showing a questionable acute cortical ischemia adjacent to tiny chronic cortical infarcts in the left frontoparietal region. Patient spent approximately 3 weeks at [facility] and had been recently placed in a [facility]. Patient requesting to go back there as soon as she can. She is a full code. CTA exam revealed bilateral carotid artery stenosis at the bifurcation. Exam - Constitutional Vitals: Period Temp Pulse Resp BP Sys/Quezada Pulse Ox Last 24 Hr 97 F-97.7 F 61-78 15-22 122-177/51-77 91-100 Exam: EXAM: General: No Acute Distress HEENT: Normocephalic, atraumatic, Extra ocular movements intact Neck: Supple, No JVD Chest: Clear to auscultation B/L CV: S1 + S2 audible without murmur, gallop or rub Abd: soft, NT, No organomegaly, Non-distended, BS + Ext: No edema Skin: No purpura, bruising or rash Rheumatologic: No Joint deformities Neurologic: Strength on the right 2/5, Strength on the left 3-4/5 Results - Labs CBC & BMP: 11/08/16 05:01 11/08/16 05:01 - Impressions A/P: Assessment and Plan (1) Acute CVA (cerebrovascular accident) Status: Acute Assessment and plan: Cont ASA/Plavix Continue PT OT and ST consults Given her advanced age and multiple comorbidities, recovery in the right side of the weakness is guarded Current Visit: Yes (2) Carotid artery disease Status: Acute Assessment and plan: Given her advanced age and multiple medical problems and bed ridden status, patient may not be a good candidate for surgical intervention. Thank you for the consult Current Visit: Yes (3) DEMETRIUS on CKD-III status acute Status: Acute A/P: Avoid nephrotoxins, renally dose medicines, and monitor (4) Bacterial pneumonia Status: Acute A/P: Continue Levaquin, repeat chest x-ray in few days (5) Hyperkalemia Status: Acute A/P: mild, monitor (6) DVT Prophylaxis SC Heparin Quality Measures - Stroke Onset of Symptoms Date: 11/07/16 Onset of Symptoms Time: 10:00 Symptom Onset Unknown: Yes
[2016-11-08] MEDS: BACITRACIN OINT 0.9 GM PACK TOP SCH (18:56)
[2016-11-08] MEDS: HEPARIN 5,000 UNIT/1 ML VIAL SUBCUT SCH (18:56)
[2016-11-08] MEDS: CLOPIDOGREL 75 MG TABLET PO SCH (18:56)
[2016-11-09] MEDS: HEPARIN 5,000 UNIT/1 ML VIAL SUBCUT SCH ×2 (02:04→09:17)
[2016-11-09 02:20] LABS: Basophils % 0.1 % (0.0-0.8); Hematocrit 26.8 VOL% (35.7-47.0); Hemoglobin 8.3 GM/DL (12.0-16.0); Immature Granulocytes % 0.7 %; Immature Granulocytes Absolute 0.08 #; Lymphocytes # 0.8 10*3/uL (1.4-4.0); Lymphocytes % 7.6 % (21.3-54.2); Mean Corpuscular Hemoglobin 29 PG (27-34); Mean Corpuscular Volume 92.4 FL (87-102); Monocytes # 0.4 10*3/uL (0.11-0.8); Monocytes % 3.5 % (1.7-12.7); Neutrophils # 9.4 10*3/uL (1.4-7.4); Neutrophils % 88.1 % (38.7-73.9); Platelet Count 197 T/CUMM (130-400); Red Cell Distribution Width 16.7 % (9.3-17.3); White Blood Count 10.7 T/CUMM (4-12)
[2016-11-09 02:47] LABS: Calcium 8.5 MG/DL (8.5-10.1); Potassium 4.7 MMOL/L (3.5-5.1)
[2016-11-09] MEDS: SODIUM CHLORIDE 0.9% 1,000 ML IV SCH (03:54)
[2016-11-09] MEDS: METOCLOPRAMIDE 10 MG TABLET PO SCH ×3 (04:38→16:13)
[2016-11-09] MEDS: ALBUTEROL/IPRATROPIUM 3 ML NEB RESP TX SCH ×2 (07:24→13:45)
[2016-11-09] MEDS ORDERED: LEVOFLOXACIN INJ 750 MG in PREMIX 1 EACH IV SCH (09:00)
[2016-11-09] MEDS: NEBIVOLOL 5 MG TABLET PO SCH (09:16)
[2016-11-09] MEDS: methylPREDNISolone SOD SUC 40 MG/1 ML VIAL IV SCH (09:17)
[2016-11-09] MEDS: ASPIRIN 325 MG TABLET PO SCH (09:17)
[2016-11-09] MEDS: FLUCONAZOLE 200 MG TABLET PO SCH (09:17)
[2016-11-09] MEDS: PANTOPRAZOLE 40 MG TABLET PO SCH (09:17)
[2016-11-09] MEDS: BACITRACIN OINT 0.9 GM PACK TOP SCH (09:17)
[2016-11-09] MEDS: MULTIVITAMIN (CENTRUM) TABLET PO SCH (09:18)
[2016-11-09] MEDS: INSULIN LISPRO 100 UNIT/ML SUBCUT SCH (09:18)
[2016-11-09] MEDS: CLOPIDOGREL 75 MG TABLET PO SCH (09:40)
--- NOTE | 2016-11-09 14:16 | Discharge Summary ---
Hospital Course - Hospital Course Hospital Course: 81 year old -Nigerien female with history of hypertension, diabetes, nonischemic cardiomyopathy, pacemaker, hypothyroidism, COPD, chronic renal insufficiency, obesity, sleep apnea, and history of breast cancer presenting to the ED by EMS from her [facility] with complaints of right-sided weakness. According to patient she is fine and she is not having any problems or any complaints. The halfway sent her with an acute onset of right-sided weakness and facial droop. Patient's niece is present says she has been confused for a couple of days and telling stories. Patient denies headache, chills, fevers, dysphagia, chest pain, shortness of breath, abdominal pain, dysuria, or lower extremity edema. Upon exam patient is awake and alert and answering questions appropriately. Her cranial nerves are grossly intact. She is relatively weaker on the right upper and lower extremity than the left at 3/ 5 versus 4/5 on the left. Her reflexes and sensory system are intact distally. Patient is nonambulatory therefore coordination, station and gait could not be evaluated. Patient had a Hawthorne placed in the ED and she does have purulent urine in the Hawthorne. She also has bilateral coarseness with an audible wheeze. She has a clean sacral wound as well. CT the head showing a questionable acute cortical ischemia adjacent to tiny chronic cortical infarcts in the left frontoparietal region. Her white count is normal at 8.3, she is anemic at 11.2/ 35.5, coags are okay, creatinine stable at 1.3, blood sugars okay at 129, and UTI with large leukocytes. She is afebrile and her vital signs are stable at this time. Patient had recently been admitted at the end of August to the hospitalist service with pneumonia and small bowel obstruction and found anemia. Her bowel obstruction resolved without surgery and she was transferred to LTAC on antibiotics. Patient spent approximately 3 weeks at [facility] and had been recently placed in a halfway. Patient was admitted to the hospital service with a diagnosis of ischemic stroke. Patient had some right-sided weakness. Patient was seen in consultation with Dr. Gould at the neurologist. Patient was ordered by speech therapy who recommended pured diet as well as physical therapy and Occupational Therapy. And also had bacterial pneumonia present on admission that and she was started on Levaquin also had a E. coli UTI that was also present on admission but E. coli was resistant to Levaquin therefore patient is being treated with Invanz which will be continued IV at the halfway. Patient other medical problems have been stable since her workup is complete and a prior medical problems have been addressed and the she is now in a stable condition to be discharged back to halfway time spent doing that in the discharge summary prescriptions orders was about 40 minutes. - Time spent with patient Time with patient DS: Greater than 30 minutes (40 minutes) Discharge Plan - Discharge Data Condition at Discharge: Stable Discharge Diet: other (Puree diet, thickened liquids) Activity: increase activity as tolerated - Discharge Medications New Albuterol/Ipratropium Neb [Duoneb] 3 ml RESP TX RT Q6H #30 Docusate Sodium Cap [Colace Cap] 100 mg PO BID PRN capsule PRN Reason: Constipation Ertapenem [INVanz] 1,000 mg IV Q24H #7 vial Famotidine Tab [Pepcid Tab] 20 mg PO BID #60 tablet guaiFENesin/DM ER 600-30 [Mucinex Dm 600-30 MG] 1 tablet PO BID PRN #20 tablet PRN Reason: Congestion Levofloxacin Tab [Levaquin Tab] 250 mg PO DAILY #14 tablet Acetaminophen Tab [Tylenol Tab] 325 mg PO Q4H PRN tablet PRN Reason: fever, headache/body aches Clopidogrel [Plavix] 75 mg PO DAILY #30 tablet Continue Fluconazole Tab [Diflucan Tab] 400 mg PO DAILY Magnesium Hydroxide [Milk of Magnesia] 30 ml PO Q24H PRN PRN Reason: Constipation Multivitamin (Centrum) [Centrum Tab] 1 tablet PO DAILY Albuterol/Ipratropium Neb [Duoneb] 3 ml RESP TX RT Q6H Insulin Regular, Human [NovoLIN R] See Protocol SUBCUT ACHS Skin Healing Oint (Aquaphor) [Aquaphor] 1 applic TOP PRN PRN applic PRN Reason: Dry Skin Nebivolol [Bystolic] 5 mg PO DAILY Insulin Glargine [Lantus] 10 unit SUBCUT DAILY Metoclopramide HCl 10 mg PO Q6H - Follow Up or Referral - Forms/Instructions Exam - Constitutional Vitals: Period Temp Pulse Resp BP Sys/Quezada Pulse Ox Last 24 Hr 97.2 F-97.8 F 61-79 12-22 114-135/52-65 97-100 Exam: General: No Acute Distress HEENT: Normocephalic, atraumatic, Extra ocular movements intact Neck: Supple, No JVD Chest: Clear to auscultation B/L CV: S1 + S2 audible without murmur, gallop or rub Abd: soft, NT, No organomegaly, Non-distended, BS + Ext: No edema Skin: No purpura, bruising or rash Rheumatologic: No Joint deformities Neurologic: Strength on the right 2/5, Strength on the left 3-4/5 Discharge Results Procedures and tests throughout hospitalization: Pending Orders 11/07/16 14:33 Blood Culture Stat Labs on day of discharge: Labs from last 24 hours 11/09/16 11/09/16 11/09/16 11:16 08:06 01:59 WBC RBC Hgb Hct MCV MCH MCHC RDW Plt Count MPV Neut % (Auto) Lymph % (Auto) [place] % (Auto) Eos % (Auto) Baso % (Auto) Neut # (Auto) Lymph # (Auto) [place] # (Auto) Eos # (Auto) Baso # (Auto) Immature Gran % Nucleated RBC % Immature Gran # Nucleated RBCs # Sodium 136 Potassium 4.7 Chloride 105 Carbon Dioxide 23 Anion Gap 12.7 BUN 29 H Creatinine 1.40 H GFR Calculation 43 BUN/Creatinine Ratio 20.00 Glucose 422 H POC Glucose 352 H 368 H Calculated Osmolality 295.0 Calcium 8.5 11/09/16 11/08/16 01:59 21:43 WBC 10.7 D RBC 2.90 L Hgb 8.3 L Hct 26.8 L MCV 92.4 MCH 29 MCHC 31.0 L RDW 16.7 Plt Count 197 MPV 11.0 Neut % (Auto) 88.1 H Lymph % (Auto) 7.6 L [place] % (Auto) 3.5 Eos % (Auto) 0.0 Baso % (Auto) 0.1 Neut # (Auto) 9.4 H Lymph # (Auto) 0.8 L [place] # (Auto) 0.4 Eos # (Auto) 0.0 Baso # (Auto) 0.0 Immature Gran % 0.7 Nucleated RBC % 0.0 Immature Gran # 0.08 Nucleated RBCs # 0.00 Sodium Potassium Chloride Carbon Dioxide Anion Gap BUN Creatinine GFR Calculation BUN/Creatinine Ratio Glucose POC Glucose 360 H Calculated Osmolality Calcium Preliminary micro results at discharge 11/07/16 14:33 Blood Culture - Preliminary Blood No growth at 1 day 11/07/16 14:17 Blood Culture - Preliminary Blood No growth at 1 day DS: Provider Date of admission: 11/07/16 13:42 Primary care physician: Jacky Ramirez MD Attending physician on admission: Jorge Mars MD Consults: 11/07/16 13:41 Consult to Physician [CONS] Routine Comment: cva Consulting Provider: Oscar Manley When should Consulting Provider be notified: Now Person Notified: LURDES Date Notified: 11/07/16 Time Notified: 15:39 11/07/16 13:46 Consult to Occupational Therapy [CONS] Routine Reason for Occupational Therapy: Evaluate and Treat Consult to Physical Therapy [CONS] Routine Reason for Physical Therapy: Evaluate and Treat 11/07/16 13:48 Consult to Wound Care [facility] [CONS] Routine Reason for Wound Care: Other Consult Comment: eval sacral wound and order wound care instructions 11/08/16 16:53 Consult to Occupational Therapy [CONS] Routine Reason for Occupational Therapy: Evaluate and Treat Start Therapy: Tomorrow Discharging clinician: Keya Monroy MD
[2016-11-09] MEDS ORDERED: ERTAPENEM 1,000 MG in SODIUM CHLORIDE 0.9% 100 ML IV SCH (15:00)
[2016-11-09 15:59] VITALS: BP 117/57
--- NOTE | 2016-11-09 16:01 | Neurology Progress Note ---
Neurology - PN : Subjective Interval history: Pt seems to be doing ok. No new problem reported. More alert and awake. Exam (Progress Note) - Constitutional Vitals: Period Temp Pulse Resp BP Sys/Quezada Pulse Ox Last 24 Hr 97.2 F-97.8 F 61-79 12-22 114-135/52-65 97-100 Exam: GENERAL: Patient is in no acute distress. NECK: Neck is supple. There is no JVD. No carotid bruits present. No thyroid masses. CVS: First and second heart sounds are normal. There is no S3 present. Regular rate and rhythm. RESPIRATORY: Lungs are clear to auscultation without any rales or rhonchi. ABDOMEN: Soft and non-tender. Bowel sounds are present. There is no hepatosplenomegaly. EXT: There is no palpable edema. Peripheral pulses are present. Skin: No rashes Central Nervous system: General: Alert, awake Speech: Non-Fluent but some dysarthria Comprehension: Fair Facial expressions: Normal Cranial Nerves: CN1/Olfactory: Normal CN II/ Optic: Normal, Visual Mejia unreliable CN III, and : VALENTINA & EOMI CN V: Normal & intact CN VII: Right central facial CNVIII: Normal CN XI/X/XI/XII: Intact and Normal Motor: Bulk and Tone is normal. Strength in the right 2/5 Strength in the left 3-4/5 Sensory: Cannot be assessed Reflexes: 1+ and symmetrical Cerebellar function: Cannot be assessed Toes: Equivocal Gait: Cannot be assessed Results - Labs CBC & BMP: 11/09/16 01:59 11/09/16 01:59 Assessment and Plan (1) Acute CVA (cerebrovascular accident) Status: Acute Assessment and plan: Cont ASA a day Cont Plavix 75 mg p.o. daily Ok to go from neuro standpoint Current Visit: Yes (2) Carotid artery disease Status: Acute Assessment and plan: Given her advanced age and multiple medical problems and bed ridden status, patient may not be a good candidate for surgical intervention. Thank you for the consult Current Visit: Yes Quality Measures - Stroke Onset of Symptoms Date: 11/07/16 Onset of Symptoms Time: 10:00 Symptom Onset Unknown: Yes
[2016-11-10] MEDS ORDERED: LEVOFLOXACIN 250 MG TABLET PO SCH (09:00)
== END 2016-11-09 17:37 | DRG 64 ==
LOC: EDBD → EDUNIT# → N.ED 11:10 → N.EDINP 13:41 → SUATTDRO 13:42 → N.2E 15:22
PROVIDERS: ADMIT Family Medicine; ATTEND Hospitalist

== ENCOUNTER 2016-11-16 11:00 | Inpatient (IN) ==
[2016-11-16] MEDS ORDERED: MORPHINE 2 MG/1 ML SYRINGE IV PRN (11:07)
[2016-11-16] MEDS ORDERED: ONDANSETRON 4 MG/2 ML VIAL IV PRN (11:07)
[2016-11-16 12:37] LABS: Basophils # 0.1 10*3/uL (0.0-0.2); Basophils % 0.3 % (0.0-0.8); Eosinophils # 0.2 10*3/uL (0.0-0.87); Eosinophils % 1.5 % (0.00-10.9); Hematocrit 33.6 VOL% (35.7-47.0); Hemoglobin 10.3 GM/DL (12.0-16.0); Immature Granulocytes % 1.3 %; Lymphocytes # 2.9 10*3/uL (1.4-4.0); Mean Corpuscular HGB Conc 30.7 GM/DL (32-36); Mean Corpuscular Hemoglobin 28 PG (27-34); Mean Corpuscular Volume 92.1 FL (87-102); Mean Platelet Volume 10.1 FL (9.6-12.0); Monocytes # 1.6 10*3/uL (0.11-0.8); Monocytes % 10.9 % (1.7-12.7); Neutrophils # 10.1 10*3/uL (1.4-7.4); Platelet Count 401 T/CUMM (130-400); Red Blood Count 3.65 MC/CUMM (3.8-5.5); Red Cell Distribution Width 17.9 % (9.3-17.3); White Blood Count 15.1 T/CUMM (4-12)
[2016-11-16 13:13] LABS: Albumin 2.3 G/DL (3.4-5.0); Bilirubin,Total 0.6 MG/DL (0.2-1.0); Calcium 9.6 MG/DL (8.5-10.1); Osmolality,Calculated 301.3 MOS/KG (273-304); Potassium 3.8 MMOL/L (3.5-5.1); Total Protein 6.5 G/DL (6.4-8.3)
[2016-11-16] MEDS ORDERED: DEXTROSE 50% 25 GM/50 ML VIAL IV PRN ×2 (13:27→16:59)
[2016-11-16] MEDS ORDERED: GLUCAGON 1 MG VIAL IM PRN ×2 (13:27→16:59)
[2016-11-16] MEDS: DEXTROSE 5% NACL 0.45% 1,000 ML IV SCH (14:41)
--- NOTE | 2016-11-16 15:33 | Hospitalist History & Physical ---
Assessment and Plan (1) Failure to thrive syndrome, adult Status: Acute Assessment and plan: The family reported a gradual change in the patient's mental and functional ability since the previous hospital admission. The patient was previously hospitalized and subsequently discharged on November 09, 2016. During the clinical encounter the patient was treated for an acute cerebrovascular accident. At the time of discharge, the patient's condition was stable and the patient was verbally responsive. The patient is now nonverbal this is an acute change from the status at the time of discharge. They report that the patient had gradually gone down since her return back to [facility]. They reported that the patient stopped eating and refused to take all medications. We will consult gastroenterology to evaluate for possible PEG tube placement. An NG tube was inserted at the time of admission. Dietary has been consulted for evaluation for enteral feedings. Current Visit: Yes (2) Altered mental status, unspecified Status: Acute Assessment and plan: This is a indeed an acute change in the patient's mental status. Upon review of the patient's medical record, during the last clinical encounter at the time of discharge the patient was verbal and able to actively participate in her care. We will conduct a full neurological workup. We will order MRI without contrast to evaluate for any acute intracranial processes. Current Visit: Yes (3) Decubitus skin ulcer Status: Acute Assessment and plan: Patient has decubitus ulceration noted at the time of admission. We will consult wound care to evaluate and treat. Current Visit: No Qualifiers: Pressure ulcer location: sacral region Pressure ulcer stage: stage 2 Qualified Code(s): L89.152 - Pressure ulcer of sacral region, stage 2 History of Present Illness Chief complaint: Failure to thrive History of present illness: This is a chronically ill 81-year-old female that presented to [facility] as a direct admission from [facility] for further evaluation of failure to thrive. Patient has a long and complex medical history significant for congestive heart failure, hypertension, insulin- dependent diabetes mellitus, hypothyroidism, asthma, chronic obstructive pulmonary disease, small bowel obstruction, carcinoma of the breast, right knee arthritis, cerebrovascular accident. Patient has surgical history significant for bowel resection secondary to bowel obstruction. The patient was recently hospitalized here at [facility] after suffering a cerebrovascular accident during her inpatient rehabilitation admission at [facility]. The patient was stabilized and subsequently discharged to [facility] for the continuation of care. Since the patient's admission at [facility], the patient's health has started to decline. The patient has experienced significant weight loss and is refusing both meals and medications. Hospital medicine was contacted today by the patient's primary care physician Dr. Jacky Ramirez regarding the patient's current status. We were informed by Dr. Medina staff that he had spoke with the patient's family regarding percutaneous gastrectomy tube placement. He reported that the patient's family was in agreement and requested direct admission under the hospitalist service for failure to thrive. She was subsequently admitted to [facility] for continuation of care. Home Medications Medication Instructions Recorded Confirmed Type Skin Healing Oint (Aquaphor) 1 applic TOP PRN PRN applic 10/10/16 11/16/16 Rx [Aquaphor] Albuterol/Ipratropium Neb [Duoneb] 3 ml RESP TX RT Q6H 11/07/16 11/16/16 History Fluconazole Tab [Diflucan Tab] 400 mg PO DAILY 11/07/16 11/16/16 History Insulin Glargine [Lantus] 10 unit SUBCUT DAILY 11/07/16 11/16/16 History Insulin Regular, Human [NovoLIN R] See Protocol SUBCUT ACHS 11/07/16 11/16/16 History Magnesium Hydroxide [Milk of 30 ml PO Q24H PRN 11/07/16 11/16/16 History Magnesia] Metoclopramide HCl 10 mg PO Q6H 11/07/16 11/16/16 History Multivitamin (Centrum) [Centrum 1 tablet PO DAILY 11/07/16 11/16/16 History Tab] Nebivolol [Bystolic] 5 mg PO DAILY 11/07/16 11/16/16 History Acetaminophen Tab [Tylenol Tab] 325 mg PO Q4H PRN tablet 11/09/16 11/16/16 Rx Albuterol/Ipratropium Neb [Duoneb] 3 ml RESP TX RT Q6H #30 11/09/16 11/16/16 Rx Clopidogrel [Plavix] 75 mg PO DAILY #30 tablet 11/09/16 11/16/16 Rx Docusate Sodium Cap [Colace Cap] 100 mg PO BID PRN capsule 11/09/16 11/16/16 Rx Ertapenem [INVanz] 1,000 mg IV Q24H #7 vial 11/09/16 11/16/16 Rx Famotidine Tab [Pepcid Tab] 20 mg PO BID #60 tablet 11/09/16 11/16/16 Rx guaiFENesin/DM ER 600-30 [Mucinex 1 tablet PO BID PRN #20 tablet 11/09/16 Rx Dm 600-30 MG] Levofloxacin Tab [Levaquin Tab] 500 mg PO Q24H #7 tablet 11/11/16 11/16/16 Rx Allergies Allergy/AdvReac Type Severity Reaction Status Date / Time Penicillins Allergy ANAPHYLAXIS Verified 09/20/16 11:00 Medical,Surgical,& Family Hx - Medical History Cardio: History of: CHF, Pacemaker Endocrine: History of: Diabetes Mellitus (IDDM) ([employer] [employer]..), Diabetes Mellitus (NIDDM), Thyroid Disorder Respiratory: History of: Asthma Genitourinary: History of: Recurring Urinary Tract Infections Gastrointestinal: History of: Bowel Obstruction (TWO BOWEL SURGERIES.), Gastrointestinal Cancer (CA OF STOMACH.) Musculoskeletal: History of: Musculoskeletal Problems (right knee arthritis) Reproductive: History of: Breast Cancer (2014) Other: History of: Cancer - Surgical History Neurologic Surgeries: Patient denies: Neurologic Surgery Abdominal Surgeries: Surgical HX of: Abdominal Surgery (bowel obstruction surgery), Hernia Repair - Family History Family History: Reports;: Family Diabetes (brothers and sisters) - Social History Smoking Status: Former smoker Frequency of Alcohol Use: None Type of Drug Use: None ROS unobtainable: due to mental status Exam - Constitutional Vitals: Period Temp Pulse Resp BP Sys/Quezada Pulse Ox Last 24 Hr 97.5 F 62 20 122/72 98 General appearance: normal weight, mild distress - Head Head exam: Present: normal inspection, normocephalic, atraumatic - Eye Eye exam: Present: EOMI. Absent: conjunctival injection Pupils: Present: VALENTINA, normal accommodation - ENT ENT exam: Present: normal exam, normal external ear exam, normal oropharynx - Neck Neck exam: Present: normal inspection. Absent: lymphadenopathy, meningismus, thyromegaly - Respiratory Respiratory exam: Present: rales - Cardiovascular Cardiovascular exam: Present: regular rate and rhythm. Absent: carotid bruit, diastolic murmur, gallop, JVD, rubs, systolic murmur - GI/Abdominal GI/Abdominal exam: Present: normal bowel sounds, soft - Extremities Exam Extremities exam: Present: normal inspection, normal capillary refill, edema (+ 2 edema noted bilateral lower extremities) - Back Exam Back exam: Present: normal inspection - Neurological Exam Neurological exam: Present: altered - Skin Skin exam: Present: normal color, warm, other (Decubitus ulceration noted to sacrum) Results - Labs CBC & BMP: 11/16/16 12:24 11/16/16 12:25 Lab Results: I have reviewed the past 24 hour labs Quality Measures - VTE Contraindication to Pharmacological VTE Prophylaxis: Already on Theraputic Agent , No Prophylaxis Needed
--- NOTE | 2016-11-16 16:08 | XRay Report ---
XR KUB Indication: NG tube placement Comparison: KUB 10/01/2016 Technique: Supine AP image of the abdomen was obtained. Findings: NG tube terminates within the gastric fundus. The tip underlies the left hemidiaphragm and is part within the gastric cardia. Single lead cardiac pacemaker remains present. Heart appears enlarged. Lungs are clear. No organomegaly suggested. The bowel gas pattern demonstrates no significant abnormality. Impression: 1. No active process is demonstrated within the abdomen or pelvis. NG tube placement as detailed. 11/16/2016 4:04 PM PROCEDURE INTERPRETED AT [facility] DEPARTMENT OF RADIOLOGY Final Report Signed by: Dr. Herbert Juarez
[2016-11-16] MEDS ORDERED: INSULIN REGULAR 100 UNIT/ML SUBCUT SCH (18:00)
[2016-11-16] MEDS: LINEZOLID INJ 600 MG in PREMIX 1 EACH IV SCH (18:25)
[2016-11-16] MEDS: MEROPENEM 1,000 MG in SODIUM CHLORIDE 0.9% 100 ML IV SCH (18:25)
[2016-11-16] MEDS: INSULIN REGULAR 100 UNIT/ML SUBCUT SCH (18:26)
--- NOTE | 2016-11-16 19:56 | Gastrointestinal Consult Note ---
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 The patient has been left off of her Plavix in order to facilitate PEG tube placement. Unfortunately symptoms progressed to the point where the patient had to be done sooner than anticipated. By report the Plavix was discontinued several days ago. It is certainly reasonable not the power of immigration attorney is consented to the procedure to place the PEG tube tomorrow. I did discuss with the power of immigration attorney [place] Villegas the risks of the above procedure which include but are not limited to: Bleeding, infection, perforation, cardiac and pulmonary compromise as well as peritonitis with the tube placement. We will proceed tomorrow. Patient is to be made n.p.o. after midnight. Current Visit: Yes (2) Anorexia Status: Acute Assessment and plan: Patient was probably mildly dehydrated because of poor p.o. intake at home. It is difficult to assess without a formal swallowing study there is aspiration occurring. On my exam she does have some rhonchi in her right base which likely may be a sequela of aspiration. [facility] and hence her current hospitalization mostly for placement of this feeding tube. Current Visit: Yes (3) Mild dehydration Status: Acute Assessment and plan: Patient has an elevation in her pain as well as sodium indicating poor ability to keep up with her to hydration, continue IV fluids and observe. Current Visit: Yes History of Present Illness Chief complaint: Dysphagia, poor p.o. intake resulting in failure to thrive History of present illness: Ms. Oconnell is a 81 year old female who has a history of being a direct admission from [facility] for failure to thrive. This patient has been seen by Dr. Jacky Ramirez in the past after her stroke and has had progressive difficulty with swallowing to the point where she is not able to take adequate nutrition at home. She was taken off of her Plavix at the jail and we were preparing for tube placement in the future when the patient became too ill to continue at the jail and was sent in for hydration and to expedite PEG tube placement. She is not able to reliably follow commands, we were able to discuss the PEG tube placements and any questions were answered from the patient's power of immigration attorney, [place] Villegas. All of her questions surrounding the patient's PEG tube placement were answered. I do not see a formal swallowing study from this admission her previous admission. She has been seen by Dr. Cespedes on previous admission concerning possible small bowel obstruction. This proved to be just an ileus that resolved in mid to late September 2016. The patient is not available to provide any additional information, she has altered mental status apparently is chronic since her stroke. She is able to answer some questions but the veracity of the information given is unclear. She is a mild anemia and a relative dehydration with a sodium at 148 and creatinine up to 1.6. Home Medications Medication Instructions Recorded Confirmed Type Skin Healing Oint (Aquaphor) 1 applic TOP PRN PRN applic 10/10/16 11/16/16 Rx [Aquaphor] Albuterol/Ipratropium Neb [Duoneb] 3 ml RESP TX RT Q6H 11/07/16 11/16/16 History Fluconazole Tab [Diflucan Tab] 400 mg PO DAILY 11/07/16 11/16/16 History Insulin Glargine [Lantus] 10 unit SUBCUT DAILY 11/07/16 11/16/16 History Insulin Regular, Human [NovoLIN R] See Protocol SUBCUT ACHS 11/07/16 11/16/16 History Magnesium Hydroxide [Milk of 30 ml PO Q24H PRN 11/07/16 11/16/16 History Magnesia] Metoclopramide HCl 10 mg PO Q6H 11/07/16 11/16/16 History Multivitamin (Centrum) [Centrum 1 tablet PO DAILY 11/07/16 11/16/16 History Tab] Nebivolol [Bystolic] 5 mg PO DAILY 11/07/16 11/16/16 History Acetaminophen Tab [Tylenol Tab] 325 mg PO Q4H PRN tablet 11/09/16 11/16/16 Rx Albuterol/Ipratropium Neb [Duoneb] 3 ml RESP TX RT Q6H #30 11/09/16 11/16/16 Rx Clopidogrel [Plavix] 75 mg PO DAILY #30 tablet 11/09/16 11/16/16 Rx Docusate Sodium Cap [Colace Cap] 100 mg PO BID PRN capsule 11/09/16 11/16/16 Rx Ertapenem [INVanz] 1,000 mg IV Q24H #7 vial 11/09/16 11/16/16 Rx Famotidine Tab [Pepcid Tab] 20 mg PO BID #60 tablet 11/09/16 11/16/16 Rx guaiFENesin/DM ER 600-30 [Mucinex 1 tablet PO BID PRN #20 tablet 11/09/16 Rx Dm 600-30 MG] Levofloxacin Tab [Levaquin Tab] 500 mg PO Q24H #7 tablet 11/11/16 11/16/16 Rx Allergies Allergy/AdvReac Type Severity Reaction Status Date / Time Penicillins Allergy ANAPHYLAXIS Verified 09/20/16 11:00 Medical,Surgical,& Family Hx - Medical History Cardio: History of: CHF, Pacemaker Endocrine: History of: Diabetes Mellitus (IDDM) ([employer] K[employer] D[employer]YSIS..), Diabetes Mellitus (NIDDM), Thyroid Disorder Respiratory: History of: Asthma Genitourinary: History of: Recurring Urinary Tract Infections Gastrointestinal: History of: Bowel Obstruction (TWO BOWEL SURGERIES.), Gastrointestinal Cancer (CA OF STOMACH.) Musculoskeletal: History of: Musculoskeletal Problems (right knee arthritis) Reproductive: History of: Breast Cancer (2015) Other: History of: Cancer - Surgical History Neurologic Surgeries: Patient denies: Neurologic Surgery Abdominal Surgeries: Surgical HX of: Abdominal Surgery (bowel obstruction surgery), Hernia Repair - Family History Family History: Reports;: Family Diabetes (brothers and sisters) - Social History Smoking Status: Former smoker Frequency of Alcohol Use: None Type of Drug Use: None ROS unobtainable: due to dementia Exam - Constitutional Vitals: Period Temp Pulse Resp BP Sys/Quezada Pulse Ox Last 24 Hr 97.0 F-97.5 F 62-65 18-22 121-122/60-72 97-98 General appearance: no acute distress Exam: Constitutional: Well-developed, well-nourished obese black female, intermittently alert, and in no acute distress Head and face: Head: Normocephalic atraumatic Eyes: Conjunctiva without injection, no gross scleral icterus, pupils equal and round bilaterally Ears: Intact to conversation in both ears Nose: External appearance is normal, nares patent Mouth: Oral mucous membranes moist without erythema dentition noted to be without erosion Neck: Normal appearance, no masses or tenderness, trachea midline Thyroid: Gland midline and appropriate size for age Respiratory: Normal respiratory effort, clear to auscultation no wheezes are noted however the patient does have rhonchi in her right base, however no rales auscultated Cardiovascular: Regular rate and rhythm, normal S1, S2, the exam is without rubs, murmurs or gallops. Gastrointestinal: Obese but nontender to palpation, normal active bowel sounds, tone normal without rigidity or guarding, no masses present, no hepatomegaly, no spleen tip felt. No rectal exam obtained. Lymphatic: Neck without adenopathy, axilla without lymphadenopathy present Musculoskeletal: Right and left lower extremities without evidence of edema Skin and subcutaneous tissue: No rashes or ulcerations noted, normal skin turgor, digits and nails without clubbing/cyanosis/deformities. Neurologic: The patient is grossly oriented to person only, (not place or time), cranial nerves show tongue movements are normal with normal tongue extrusion midline, light touch sensation is intact. Psychiatric: No hallucinations or delusions are present, does not appear depressed Results - Labs CBC & BMP: 11/16/16 12:24 11/16/16 12:25 Quality Measures - VTE Contraindication to Pharmacological VTE Prophylaxis: Already on Theraputic Agent , No Prophylaxis Needed
[2016-11-16 23:59] LABS: Apearance,Urine CLOUDY (Clear); Bacteria,Urine Occasional /HPF (Few); Bilirubin,Urine Negative (Negative); Blood, Urine Negative (Negative); Glucose,Urine (UA) >=500 mg/dL (Negative); Hyaline Casts,Urine 12 /LPF (0-3); Ketones,Urine 5 mg/dL (Negative); Mucus,Urine Occasional /LPF (Occasional); Nitrite,Urine Negative (Negative); Protein,Urine 30 MG/DL; RBC,Urine 1 /HPF (0-4); Squamous Epithelial Cell,Urine Occasional /HPF (0-10); Urine Color Yellow (Yellow); Urine Specific Gravity 1.013 (1.001-1.035); Urine Urobilinogen < 2.0 EU/DL (0.2-1.0); WBC,Urine 10 /HPF (0-6)
[2016-11-17] MEDS: INSULIN REGULAR 100 UNIT/ML SUBCUT SCH ×3 (00:59→12:20)
[2016-11-17] MEDS: DEXTROSE 5% NACL 0.45% 1,000 ML IV SCH (05:02)
[2016-11-17] MEDS: LINEZOLID INJ 600 MG in PREMIX 1 EACH IV SCH (05:31)
[2016-11-17 07:50] LABS: INR 1.1; PT Patient Result 11.5 SECS
[2016-11-17 08:26] LABS: Potassium 3.5 MMOL/L (3.5-5.1)
[2016-11-17 08:29] LABS: Magnesium 1.8 MG/DL (1.8-2.4); Osmolality,Calculated 298.7 MOS/KG (273-304)
[2016-11-17 08:38] LABS: Phosphorous 2.4 MG/DL (2.5-4.9); Prealbumin 11.3 MG/DL (20-40)
[2016-11-17] MEDS ORDERED: PROPOFOL 200 MG/20 ML VIAL IV ONE (08:50)
[2016-11-17] MEDS ORDERED: LIDOCAINE 100 MG/5 ML SYRINGE ONE (08:50)
[2016-11-17] MEDS: MEROPENEM 1,000 MG in SODIUM CHLORIDE 0.9% 100 ML IV SCH (08:53)
[2016-11-17] MEDS ORDERED: MULTIVITAMIN LIQUID (CENTRUM) 60 ML BOTTLE PER TUBE SCH (09:00)
--- NOTE | 2016-11-17 09:08 | Operative Note ---
Date of procedure: 11/17/16 Pre-op diagnosis: Poor p.o. intake, failure to thrive at home Post-op diagnosis: other (The patient has slight distal esophageal stricture, 2 cm hiatal hernia, mild esophagitis, some retained fluid in the stomach suspicious for gastroparesis, mild patchy gastritis and a hint of duodenitis. PEG tube successfully placed.) Procedure: PROCEDURE: Esophagogastroduodenoscopy (EGD) with percutaneous endoscopic gastrostomy (PEG) tube placement with cold biopsy for pathology REFERRING PHYSICIAN: Mary Marie MD INDICATIONS: Poor p.o. intake, failure to thrive at home, family desires PEG tube placement, clinical dysphagia ENDOSCOPIST: Rodney Hwang MD ENDOSCOPE: Olympus Video 100 System upper endoscope ASA CLASS: 4 EXAM: CV: Regular rate and rhythm respiratory: Clear to ascultation abdominal: Positive bowel sounds MEDICATION: As per Anesthesia nursing protocol, see their notes PROCEDURE: After discussion of the potential risks and benefits of upper endoscopy and PEG placement, the informed consent was obtained. The patient was then placed in the left lateral decubitus position where sedation was achieved as noted above. Esophageal intubation was performed without difficulty , and the endoscope was advanced through the esophagus, stomach and duodenum. A slow withdrawal was then performed with retroflexion in the stomach for careful inspection of the incisura angularis, fundus and cardia. The scope was then returned to a neutral position and withdrawn through the esophagus. The patient tolerated the procedure well and without complication. BIOPSIES: Gastric antrum/body PHOTOGRAPHS: Obtained FINDINGS: Hypopharynx and Larynx: Normal with retained secretions, removed Esohagoscopy Upper and middle thirds: Tortuous but otherwise normal Lower third tortuous but otherwise normal except for mild erythema for the last 2 cm Esophogastric junctions: There was narrowing noted at the EG junction consistent with a muscular stricture, erythema consistent with mild esophagitis, no evidence Gant's epithelium Gastroscopy: Cardia/Fundus: 2 cm hiatal hernia, retained fluid in the fundus green , moderate amount Body: J-shaped stomach, moderate patchy gastritis, biopsied Antrum and pylorus J-shaped stomach, moderate patchy gastritis, biopsied Duodenoscopy: Bulb mild villous loss on the folds Second and third portions: Mild villous loss on the folds PEG Kit/tube size: 20 cm Cook type PEG tube PEG Placement: After insufflation of the stomach with the prior procedure proper positioning was determined through transillumination and direct pressure with one to one transmission through the abdominal wall. The abdomen was sterilely prepped and draped, injected with 1% lidocaine and a 1 cm incision was cut in the external skin to accommodate the PEG tube. Using standard Ponsky "pull" technique, a catheter was inserted into the stomach (using a fluid filled syringe with back-suction to examine for interposed hollow organs) and a string was advanced into the stomach. This was snared through the scope, pulled through the mouth and tied to the PEG tube. The feeding tube was then pulled down into the stomach and out the abdominal wall, and a hub appropriately placed at the base to provide traction between internal hub and external skin. The tube was trimmed, dressed and a second look with the endoscope used to confirm position and function of the tube. The procedure was tolerated well and without complication. IMPRESSION: The patient has slight distal esophageal stricture, 2 cm hiatal hernia, mild esophagitis, some retained fluid in the stomach suspicious for gastroparesis, mild patchy gastritis and a hint of duodenitis. PEG tube successfully placed. RECOMMENDATIONS: Maintain head of bed at 30 degrees Flush the PEG tube with 30 cc of water or saline every 4 hours Obtain (if not done already) nutritional consult to determine optimal feeding rate, continuous vs. bolus, and any hydration requirements necessary. Meds may be crushed and flushed through PEG in 12 hours, followed by 10 ml of water, as per the patient's attending physcian. Feeding though the tube may start at 12 hours with an initial rate of 30 ml/ hour advancing by 10 ml's every four hours until goal rate achieved. Hold tube feeds for residuals greater than 100 ml, checked each shift. Continue use of proton pump inhibition at her final point of care. Rodney Hwang MD Copy to: Grant Garcia MD Anesthesia: MAC Surgeon / Physician: Rodney Hwang Estimated blood loss: minimal Specimens: other (Gastric antrum/body) Results - Labs CBC & BMP: 11/16/16 12:24 11/17/16 08:01 Discharge Plan - Discharge Medications No Action Fluconazole Tab [Diflucan Tab] 400 mg PO DAILY Magnesium Hydroxide [Milk of Magnesia] 30 ml PO Q24H PRN PRN Reason: Constipation Multivitamin (Centrum) [Centrum Tab] 1 tablet PO DAILY Albuterol/Ipratropium Neb [Duoneb] 3 ml RESP TX RT Q6H Insulin Regular, Human [NovoLIN R] See Protocol SUBCUT ACHS Albuterol/Ipratropium Neb [Duoneb] 3 ml RESP TX RT Q6H #30 Docusate Sodium Cap [Colace Cap] 100 mg PO BID PRN capsule PRN Reason: Constipation Ertapenem [INVanz] 1,000 mg IV Q24H #7 vial Famotidine Tab [Pepcid Tab] 20 mg PO BID #60 tablet guaiFENesin/DM ER 600-30 [Mucinex Dm 600-30 MG] 1 tablet PO BID PRN #20 tablet PRN Reason: Congestion Levofloxacin Tab [Levaquin Tab] 500 mg PO Q24H #7 tablet Skin Healing Oint (Aquaphor) [Aquaphor] 1 applic TOP PRN PRN applic PRN Reason: Dry Skin Nebivolol [Bystolic] 5 mg PO DAILY Insulin Glargine [Lantus] 10 unit SUBCUT DAILY Metoclopramide HCl 10 mg PO Q6H Acetaminophen Tab [Tylenol Tab] 325 mg PO Q4H PRN tablet PRN Reason: fever, headache/body aches Clopidogrel [Plavix] 75 mg PO DAILY #30 tablet - Follow Up or Referral - Forms/Instructions
--- NOTE | 2016-11-17 09:13 | Gastrointestinal Progress Note ---
Assessment and Plan (1) Dysphagia due to old stroke Status: Acute Assessment and plan: The power of employment law specialistleighton Elaine describes patient's difficulty in attempting to eat possibly due to a combination of the old stroke and Alzheimer's with failure to thrive him this dehydration she has been experiencing lately. The patient has been left off of her Plavix in order to facilitate PEG tube placement. Unfortunately symptoms progressed to the point where the patient had to be done sooner than anticipated. By report the Plavix was discontinued several days ago. It is certainly reasonable not the power of employment law specialist is consented to the procedure to place the PEG tube tomorrow. I did discuss with the power of employment law specialistleighton Villegas the risks of the above procedure which include but are not limited to: Bleeding, infection, perforation, cardiac and pulmonary compromise as well as peritonitis with the tube placement. We will proceed tomorrow. Patient is to be made n.p.o. after midnight. 11/17/16--upper endoscopy results from today include the following: The patient has slight distal esophageal stricture, 2 cm hiatal hernia, mild esophagitis, some retained fluid in the stomach suspicious for gastroparesis, mild patchy gastritis and a hint of duodenitis. PEG tube successfully placed. Current Visit: Yes (2) Anorexia Status: Acute Assessment and plan: Patient was probably mildly dehydrated because of poor p.o. intake at home. It is difficult to assess without a formal swallowing study there is aspiration occurring. On my exam she does have some rhonchi in her right base which likely may be a sequela of aspiration. She is not doing well at the skilled nursing and hence her current hospitalization mostly for placement of this feeding tube. 11/17/16--See above Current Visit: Yes (3) Mild dehydration Status: Acute Assessment and plan: Patient has an elevation in her pain as well as sodium indicating poor ability to keep up with her to hydration, continue IV fluids and observe. 11/17/16--See above. Patient will likely need a home health center to come out and teach the family about PEG tube use versus going to skilled nursing versus swing bed. Current Visit: Yes Gastroenterology - PN: Subj Interval history: No new complaints Exam (Progress Note) - Constitutional Vitals: Period Temp Pulse Resp BP Sys/[place] Pulse Ox Last 24 Hr 97.0 F-97.5 F 60-72 14-22 115-138/56-72 97-100 - Head Head exam: Present: normocephalic - Respiratory Respiratory exam: Present: clear to auscultation bilaterally - Cardiovascular Cardiovascular exam: Present: regular rate and rhythm - GI/Abdominal GI/Abdominal exam: Present: normal bowel sounds, distended, soft. Absent: tenderness, rebound - Neurological Exam Neurological exam: Present: altered - Psychiatric Psychiatric exam: Present: flat affect - Skin Skin exam: Present: warm Results - Labs CBC & BMP: 11/16/16 12:24 11/17/16 08:01
--- NOTE | 2016-11-17 09:17 | Anesthesia Post-Op ---
Anesthesia Post OP - Post Ansesthetic Evaluation Patient seen in post op: Yes Resp: within normal limits CV: within normal limits Mental: other (pt non verbal d/t previous CVA. Unresponsive prior to anesthesia. No change in mental status post-op.) Temp: within normal limits Hnnt-Oh-Mccrljaow: within normal limits Nausea and Vomiting: within normal limits Pain: within normal limits
--- NOTE | 2016-11-17 09:56 | Hospitalist Progress Note ---
Assessment and Plan (1) Failure to thrive syndrome, adult Status: Acute Assessment and plan: The family reported a gradual change in the patient's mental and functional ability since the previous hospital admission. The patient was previously hospitalized and subsequently discharged on November 09, 2016. During the clinical encounter the patient was treated for an acute cerebrovascular accident. At the time of discharge, the patient's condition was stable and the patient was verbally responsive. The patient is now nonverbal this is an acute change from the status at the time of discharge. They report that the patient had gradually gone down since her return back to [facility]. They reported that the patient stopped eating and refused to take all medications. We will consult gastroenterology to evaluate for possible PEG tube placement. An NG tube was inserted at the time of admission. Dietary has been consulted for evaluation for enteral feedings. Current Visit: Yes (2) Altered mental status, unspecified Status: Acute Assessment and plan: This is a indeed an acute change in the patient's mental status. Upon review of the patient's medical record, during the last clinical encounter at the time of discharge the patient was verbal and able to actively participate in her care. We will conduct a full neurological workup. We will order MRI without contrast to evaluate for any acute intracranial processes. Current Visit: Yes (3) Decubitus skin ulcer Status: Acute Assessment and plan: Patient has decubitus ulceration noted at the time of admission. We will consult wound care to evaluate and treat. Current Visit: No Qualifiers: Pressure ulcer location: sacral region Pressure ulcer stage: stage 2 Qualified Code(s): L89.152 - Pressure ulcer of sacral region, stage 2 Exam - Constitutional Vitals: Period Temp Pulse Resp BP Sys/[place] Pulse Ox Last 24 Hr 97.0 F-97.5 F 58-72 14-26 109-138/50-72 97-100 Results - Labs CBC & BMP: 11/16/16 12:24 11/17/16 08:01 Quality Measures - VTE Contraindication to Pharmacological VTE Prophylaxis: Already on Theraputic Agent , No Prophylaxis Needed
--- NOTE | 2016-11-17 10:31 | Discharge Summary ---
Discharge Plan - Discharge Data Disposition: Disch/Xfer to Snf Condition at Discharge: Stable Discharge Diet: other (DietDietitian recommendation of PEG tube feeding) Activity: increase activity as tolerated Weight Bearing at Discharge: non-weight bearing Contact your physician if you experience:: fever over 101, Redness or swelling, Nausea/Vomiting, Shortness of breath - Discharge Medications Continue Fluconazole Tab [Diflucan Tab] 400 mg PO DAILY Magnesium Hydroxide [Milk of Magnesia] 30 ml PO Q24H PRN PRN Reason: Constipation Multivitamin (Centrum) [Centrum Tab] 1 tablet PO DAILY Albuterol/Ipratropium Neb [Duoneb] 3 ml RESP TX RT Q6H Insulin Regular, Human [NovoLIN R] See Protocol SUBCUT ACHS Albuterol/Ipratropium Neb [Duoneb] 3 ml RESP TX RT Q6H #30 Docusate Sodium Cap [Colace Cap] 100 mg PO BID PRN capsule PRN Reason: Constipation Ertapenem [INVanz] 1,000 mg IV Q24H #7 vial Famotidine Tab [Pepcid Tab] 20 mg PO BID #60 tablet guaiFENesin/DM ER 600-30 [Mucinex Dm 600-30 MG] 1 tablet PO BID PRN #20 tablet PRN Reason: Congestion Levofloxacin Tab [Levaquin Tab] 500 mg PO Q24H #7 tablet Skin Healing Oint (Aquaphor) [Aquaphor] 1 applic TOP PRN PRN applic PRN Reason: Dry Skin Nebivolol [Bystolic] 5 mg PO DAILY Insulin Glargine [Lantus] 10 unit SUBCUT DAILY Metoclopramide HCl 10 mg PO Q6H Acetaminophen Tab [Tylenol Tab] 325 mg PO Q4H PRN tablet PRN Reason: fever, headache/body aches Clopidogrel [Plavix] 75 mg PO DAILY #30 tablet - Follow Up or Referral - Forms/Instructions Exam - Constitutional Vitals: Period Temp Pulse Resp BP Sys/Quezada Pulse Ox Last 24 Hr 97.0 F-97.5 F 58-72 14-26 109-138/50-72 97-100 General appearance: normal weight - Head Head exam: Present: normocephalic, atraumatic - Eye Eye exam: Present: EOMI, other (No conjunctival injection or petechiae no icterus) Pupils: Present: VALENTINA - Neck Neck exam: Present: normal inspection - Respiratory Respiratory exam: Present: clear to auscultation bilaterally, other (No wheezing or) - Cardiovascular Cardiovascular exam: Present: irregular rhythm, other (Rate above 60 below 100) - GI/Abdominal GI/Abdominal exam: Present: normal bowel sounds, soft, other (PEG tube placed) - Extremities Exam Extremities exam: Present: other (Single stroke very poor movement patient is bedbound) - Neurological Exam Neurological exam: Present: other (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) - Psychiatric Psychiatric exam: Present: other (Ligamentous) - Skin Skin exam: Present: normal color, warm, dry Discharge Results Procedures and tests throughout hospitalization: Pending Orders 11/16/16 11:50 Wound Culture Stat 11/16/16 12:25 Blood Culture Stat 11/17/16 Urine Culture Routine 11/17/16 04:00 MR head/brain wo con IN AM Labs on day of discharge: Labs from last 24 hours 11/17/16 11/17/16 11/17/16 08:01 07:13 06:07 WBC RBC Hgb Hct MCV MCH MCHC RDW Plt Count MPV Neut % (Auto) Lymph % (Auto) [place] % (Auto) Eos % (Auto) Baso % (Auto) Neut # (Auto) Lymph # (Auto) [place] # (Auto) Eos # (Auto) Baso # (Auto) Immature Gran % Nucleated RBC % Immature Gran # Nucleated RBCs # INR 1.1 PT Patient/Control Mix 11.5 Sodium 145 Potassium 3.5 Chloride 110 H Carbon Dioxide 27 Anion Gap 11.5 BUN 26 H Creatinine 1.41 H GFR Calculation 41 BUN/Creatinine Ratio 18.00 Glucose 208 H POC Glucose 214 H Calculated Osmolality 298.7 Calcium 9.0 Phosphorus 2.4 L Magnesium 1.8 Total Bilirubin AST ALT Alkaline Phosphatase B-Natriuretic Peptide Total Protein Albumin Globulin Albumin/Globulin Ratio Prealbumin 11.3 L Urine Color Urine Appearance Urine pH Ur Specific [place] Urine Protein Urine Glucose (UA) Urine Ketones Urine Blood Urine Nitrate Urine Bilirubin Urine Urobilinogen Urine Leukocytes Urine RBC Urine WBC Urine WBC Clumps Ur Squamous Epith Cells Urine Bacteria Hyaline Casts Urine Mucus Ur Culture Indicated? 11/17/16 11/16/16 11/16/16 00:26 22:20 16:18 WBC RBC Hgb Hct MCV MCH MCHC RDW Plt Count MPV Neut % (Auto) Lymph % (Auto) [place] % (Auto) Eos % (Auto) Baso % (Auto) Neut # (Auto) Lymph # (Auto) [place] # (Auto) Eos # (Auto) Baso # (Auto) Immature Gran % Nucleated RBC % Immature Gran # Nucleated RBCs # INR PT Patient/Control Mix Sodium Potassium Chloride Carbon Dioxide Anion Gap BUN Creatinine GFR Calculation BUN/Creatinine Ratio Glucose POC Glucose 277 H 161 H Calculated Osmolality Calcium Phosphorus Magnesium Total Bilirubin AST ALT Alkaline Phosphatase B-Natriuretic Peptide Total Protein Albumin Globulin Albumin/Globulin Ratio Prealbumin Urine Color Yellow Urine Appearance Cloudy Urine pH 5.0 Ur Specific [place] 1.013 Urine Protein 30 Urine Glucose (UA) >=500 Urine Ketones 5 Urine Blood Negative Urine Nitrate Negative Urine Bilirubin Negative Urine Urobilinogen < 2.0 H Urine Leukocytes Negative Urine RBC 1 Urine WBC 10 Urine WBC Clumps Few Ur Squamous Epith Cells Occasional Urine Bacteria Occasional Hyaline Casts 12 Urine Mucus Occasional Ur Culture Indicated? Results to follow 11/16/16 11/16/16 11/16/16 13:22 12:25 12:24 WBC RBC Hgb Hct MCV MCH MCHC RDW Plt Count MPV Neut % (Auto) Lymph % (Auto) [place] % (Auto) Eos % (Auto) Baso % (Auto) Neut # (Auto) Lymph # (Auto) [place] # (Auto) Eos # (Auto) Baso # (Auto) Immature Gran % Nucleated RBC % Immature Gran # Nucleated RBCs # INR PT Patient/Control Mix Sodium 148 H Potassium 3.8 Chloride 110 H Carbon Dioxide 27 Anion Gap 14.8 BUN 27 H Creatinine 1.60 H GFR Calculation 35 BUN/Creatinine Ratio 16.00 Glucose 146 H POC Glucose 171 H Calculated Osmolality 301.3 Calcium 9.6 Phosphorus Magnesium 2.0 Total Bilirubin 0.60 AST 45 H ALT 32 Alkaline Phosphatase 191 H B-Natriuretic Peptide 526 H Total Protein 6.5 Albumin 2.3 L Globulin 4.2 H Albumin/Globulin Ratio 0.5 L Prealbumin Urine Color Urine Appearance Urine pH Ur Specific [place] Urine Protein Urine Glucose (UA) Urine Ketones Urine Blood Urine Nitrate Urine Bilirubin Urine Urobilinogen Urine Leukocytes Urine RBC Urine WBC Urine WBC Clumps Ur Squamous Epith Cells Urine Bacteria Hyaline Casts Urine Mucus Ur Culture Indicated? 11/16/16 12:24 WBC 15.1 H RBC 3.65 L Hgb 10.3 L Hct 33.6 L MCV 92.1 MCH 28 MCHC 30.7 L RDW 17.9 H Plt Count 401 H MPV 10.1 Neut % (Auto) 67.0 Lymph % (Auto) 19.0 L [place] % (Auto) 10.9 Eos % (Auto) 1.5 Baso % (Auto) 0.3 Neut # (Auto) 10.1 H Lymph # (Auto) 2.9 [place] # (Auto) 1.6 H Eos # (Auto) 0.2 Baso # (Auto) 0.1 Immature Gran % 1.3 Nucleated RBC % 0.0 Immature Gran # 0.20 Nucleated RBCs # 0.00 INR PT Patient/Control Mix Sodium Potassium Chloride Carbon Dioxide Anion Gap BUN Creatinine GFR Calculation BUN/Creatinine Ratio Glucose POC Glucose Calculated Osmolality Calcium Phosphorus Magnesium Total Bilirubin AST ALT Alkaline Phosphatase B-Natriuretic Peptide Total Protein Albumin Globulin Albumin/Globulin Ratio Prealbumin Urine Color Urine Appearance Urine pH Ur Specific [place] Urine Protein Urine Glucose (UA) Urine Ketones Urine Blood Urine Nitrate Urine Bilirubin Urine Urobilinogen Urine Leukocytes Urine RBC Urine WBC Urine WBC Clumps Ur Squamous Epith Cells Urine Bacteria Hyaline Casts Urine Mucus Ur Culture Indicated? Preliminary micro results at discharge 11/16/16 11:50 Wound Culture - Preliminary Sacrum - Wound Gram Positive Cocci DS: Provider Date of admission: 11/16/16 11:13 Primary care physician: Jacky Ramirez MD Attending physician on admission: Grant Garcia MD Consults: 11/16/16 11:07 Consult to Physician [CONS] Routine Comment: Consulting Provider: Rodney Hwang When should Consulting Provider be notified: Now Person Notified: nelson Date Notified: 11/16/16 Time Notified: 12:28 11/16/16 11:10 Consult to Dietitian [CONS] Routine Reason for Dietitian: TF-Initiate/Manage 11/16/16 11:50 Consult to Wound Care [facility] [CONS] Routine Reason for Wound Care: Wound Care Management Discharging clinician: Grant Garcia MD
[2016-11-17] MEDS ORDERED: SKIN HEALING OINT (AQUAPHOR) 50 GM TUBE TOP PRN (13:16)
[2016-11-17 17:14] VITALS: BP 96/51
--- NOTE | 2016-11-18 11:34 | Pathology Report from [facility] ---
[facility] ACCESSION # : [id number] PATIENT NAME : Ritika Ocnonell ORDERING DR : Rodney Hwang MD CLINICAL HX: Dysphagia, CVA, failure to thrive POST-OP DX: Same SPECIMEN INFO: JOE GROSS DESCRIPTION: The specimen is received in formalin labeled with the patients name and consists of three pink-farr tissue fragments collectively measuring 0.8 x 0.3 cm. Submitted in one cassette. DIAGNOSIS FOR RITIKA OCONNELL: JOE BIOPSIES: Chronic gastritis with regenerative mucosal changes. H. pylori not seen on H&E or special stain with appropriate control. COLLECTED DATE: 11/17/2016 [facility] REPORT DATE: 11/18/2016 ELECTRONICALLY SIGNED BY: Elida Valenzuela M.D. 11/18/2016 - 9:50:09 MARIAN
== END 2016-11-17 17:17 | DRG 641 ==
LOC: N.2E 11:13
PROVIDERS: ADMIT Internal Medicine Infectious Disease; ATTEND Internal Medicine Infectious Disease
PROC: EGDWPEG (ICD-10-PCS; 2016-11-17 07:20)

== ENCOUNTER 2017-01-08 02:27 | Inpatient (IN) ==
[2017-01-08 03:08] LABS: ABG Base Excess 0.5 MMOL/L (-2.5-2.5); ABG HCO3 26.4 MMOL/L (20-26); ABG PCO2 47.5 MM HG (35-48); ABG PH 7.362 (7.35-7.45); ABG PO2 178.6 MM HG (80-95); ABG TCO2 27.8 MMOL/L (23-27)
[2017-01-08] MEDS ORDERED: CLINDAMYCIN INJ 900 MG in PREMIX 1 EACH IV STA (03:16)
[2017-01-08] MEDS ORDERED: SODIUM CHLORIDE 0.9% 2,600 ML IV ONE (03:16)
[2017-01-08 03:26] LABS: Basophils # 0.1 10*3/uL (0.0-0.2); Basophils % 0.4 % (0.0-0.8); Eosinophils # 0.1 10*3/uL (0.0-0.87); Eosinophils % 0.3 % (0.00-10.9); Hemoglobin 11.7 GM/DL (12.0-16.0); Immature Granulocytes % 0.5 %; Lymphocytes # 1.7 10*3/uL (1.4-4.0); Lymphocytes % 8.5 % (21.3-54.2); Mean Corpuscular HGB Conc 28.7 GM/DL (32-36); Mean Corpuscular Hemoglobin 29 PG (27-34); Mean Corpuscular Volume 100.2 FL (87-102); Mean Platelet Volume 13.5 FL (9.6-12.0); Monocytes # 1.2 10*3/uL (0.11-0.8); Monocytes % 6.2 % (1.7-12.7); Neutrophils # 16.7 10*3/uL (1.4-7.4); Neutrophils % 84.1 % (38.7-73.9); Platelet Count 223 T/CUMM (130-400); Red Blood Count 4.07 MC/CUMM (3.8-5.5); Red Cell Distribution Width 17.8 % (9.3-17.3); White Blood Count 19.9 T/CUMM (4-12)
[2017-01-08] MEDS ORDERED: SODIUM CHLORIDE 0.9% 1,000 ML IV SCH (03:30)
[2017-01-08 03:35] LABS: INR 1.1; PT Patient Result 11.8 SECS; Partial Thromboplastin Time 25.3 SECS (0-40)
[2017-01-08 03:36] LABS: Alanine Aminotransferase 21 U/L (13-56); Albumin 2.4 G/DL (3.4-5.0); Alkaline Phosphatase 178 U/L (45-117); Aspartate Amino Transferase 24 U/L (0-37); Bilirubin,Total < 0.39 MG/DL (0.2-1.0); Blood Urea Nitrogen 125 MG/DL (7-18); Calcium 10.4 MG/DL (8.5-10.1); Glucose 340 MG/DL (74-106); Osmolality,Calculated 355.6 MOS/KG (273-304); Potassium 5.4 MMOL/L (3.5-5.1); Sodium 153 MMOL/L (136-145); Total Protein 7.7 G/DL (6.4-8.3)
[2017-01-08 03:45] LABS: Lactic Acid 4.1 MMOL/L (0.4-2.0); Troponin I Only 0.138 NG/ML (0.00-0.045)
[2017-01-08 03:47] LABS: Apearance,Urine Slightly Hazy (Clear); Bacteria,Urine Many /HPF (Few); Bilirubin,Urine Negative (Negative); Blood, Urine Negative (Negative); Glucose,Urine (UA) 150 mg/dL (Negative); Ketones,Urine Negative (Negative); Nitrite,Urine Negative (Negative); Protein,Urine 30 MG/DL; RBC,Urine 1 /HPF (0-4); Squamous Epithelial Cell,Urine Occasional /HPF (0-10); Urine Color Yellow (Yellow); Urine Specific Gravity 1.015 (1.001-1.035); Urine Urobilinogen < 2.0 EU/DL (0.2-1.0); WBC,Urine 4 /HPF (0-6)
[2017-01-08 03:50] LABS: Hematocrit 40.3 VOL% (35.7-47.0)
[2017-01-08] MEDS ORDERED: VECURONIUM 10 MG VIAL IV ONE (03:54)
[2017-01-08] MEDS ORDERED: SUCCINYLCHOLINE 200 MG/10 ML VIAL ONE (03:54)
[2017-01-08] MEDS ORDERED: ETOMIDATE 20 MG/10 ML VIAL IV ONE (03:54)
--- NOTE | 2017-01-08 03:57 | EKG Report ---
Stationary ECG Study [facility] ER Test Date: 01/08/2017 3:19:26 AM Pat Name: KIKI ANGEL Department: Room: 121 Gender: F Entertainment Usher: : 1935 Requested by: Umberto Ruth Order Number: [id number] Reading MD: RENA GUILLAUME Intervals [place] Rate: 100 P: 70 VT: 154 QRS: -39 QRSD: 139 T: 158 QT: 396 QTc: 453 Interpretive Statements SINUS TACHYCARDIA MARKED LEFT AXIS DEVIATION INTRAVENTRICULAR CONDUCTION DELAY Electronically Signed On 01-08-17 17:58:32 CDT by RENA GUILLAUME [email or web address]
[2017-01-08] MEDS ORDERED: VANCOMYCIN INJ 1,250 MG in SODIUM CHLORIDE 0.9% 250 ML IV SCH (04:00)
[2017-01-08] MEDS ORDERED: MORPHINE 2 MG/1 ML SYRINGE IV PRN (04:05)
[2017-01-08] MEDS ORDERED: ACETAMINOPHEN 325 MG TABLET PO PRN (04:05)
[2017-01-08] MEDS ORDERED: ONDANSETRON 4 MG/2 ML VIAL IV PRN (04:05)
[2017-01-08] MEDS ORDERED: CLINDAMYCIN INJ 50 ML IV ONE (04:06)
--- NOTE | 2017-01-08 04:11 | Emergency Department Note ---
Koby Foley Brittany, am scribing for, and in the presence of, Umberto De La Rosa MD 03:15. Estrella Foley Charles R, MD, personally performed the services described in this documentation, ascribed by Lili Whalen in my presence, and it is both accurate and complete . Arrival - Arrival Chief Complaint: Shortness of Breath ED Nursing Triage Note: C/O Respiratory distress/fever. Onset 0000. Mode of Arrival: Stretcher Limitations: Physical Limitation (Respiratory distress) Source: EMS, Old Records Reviewed, RN Notes Reviewed - History of Present Illness HPI Narrative: Patient is a 81 y/o black female presenting to the ED via EMS from [facility] for further evaluation of respiratory distress that began at 0000. History is limited. Patient receives PEG tube feedings and apparently aspirated gastric contents into her airway as evidenced by the large amount of aspirate and gastric contents in her airway that required suctioning upon her arrival. Upon patient arrival into ED room 20 she was intubated, an EJ was placed, and a Central Line was placed. Patient does appear to feel febrile and she is hypotensive on the monitor with a blood pressure of 78/45 mmHg. ER nurse stated that prior to transfer here patient was febrile at [facility] with a temperature of 102.1. Patient is septic and shock appearing. PMHx of COPD and CVA that affected the R side. No further history could be obtained. Allergies/Adverse Reactions: Allergies Allergy/AdvReac Type Severity Reaction Status Date / Time Penicillins Allergy ANAPHYLAXIS Verified 09/20/16 11:00 Home Medications: Home Medications Medication Instructions Recorded Confirmed Type Skin Healing Oint (Aquaphor) 1 applic TOP PRN PRN applic 10/10/16 11/16/16 Rx [Aquaphor] Albuterol/Ipratropium Neb [Duoneb] 3 ml RESP TX RT Q6H 11/07/16 11/16/16 History Fluconazole Tab [Diflucan Tab] 400 mg PO DAILY 11/07/16 11/16/16 History Insulin Glargine [Lantus] 10 unit SUBCUT DAILY 11/07/16 11/16/16 History Insulin Regular, Human [NovoLIN R] See Protocol SUBCUT ACHS 11/07/16 11/16/16 History Magnesium Hydroxide [Milk of 30 ml PO Q24H PRN 11/07/16 11/16/16 History Magnesia] Metoclopramide HCl 10 mg PO Q6H 11/07/16 11/16/16 History Multivitamin (Centrum) [Centrum 1 tablet PO DAILY 11/07/16 11/16/16 History Tab] Nebivolol [Bystolic] 5 mg PO DAILY 11/07/16 11/16/16 History Acetaminophen Tab [Tylenol Tab] 325 mg PO Q4H PRN tablet 11/09/16 11/16/16 Rx Albuterol/Ipratropium Neb [Duoneb] 3 ml RESP TX RT Q6H #30 11/09/16 11/16/16 Rx Clopidogrel [Plavix] 75 mg PO DAILY #30 tablet 11/09/16 11/16/16 Rx Docusate Sodium Cap [Colace Cap] 100 mg PO BID PRN capsule 11/09/16 11/16/16 Rx Ertapenem [INVanz] 1,000 mg IV Q24H #7 vial 11/09/16 11/16/16 Rx Famotidine Tab [Pepcid Tab] 20 mg PO BID #60 tablet 11/09/16 11/16/16 Rx guaiFENesin/DM ER 600-30 [Mucinex 1 tablet PO BID PRN #20 tablet 11/09/16 Rx Dm 600-30 MG] Levofloxacin Tab [Levaquin Tab] 500 mg PO Q24H #7 tablet 11/11/16 11/16/16 Rx Review of System - Review of System ROS unobtainable: other (Respiratory distress) Medical,Surgical,& Family Hx - Medical History Cardio: History of: CHF, Hypertension, Pacemaker Neurology: History of: Cerebrovascular Accident No history of: Seizures Endocrine: History of: Diabetes Mellitus (IDDM) ([employer] KIDNEY DIALYSIS..), Diabetes Mellitus (NIDDM), Thyroid Disorder Respiratory: History of: Asthma Genitourinary: History of: Recurring Urinary Tract Infections Gastrointestinal: History of: Bowel Obstruction (TWO BOWEL SURGERIES.), Gastrointestinal Cancer (CA OF STOMACH.) Musculoskeletal: History of: Musculoskeletal Problems (right knee arthritis) Reproductive: History of: Breast Cancer (2015) Other: History of: Cancer - Surgical History Neurologic Surgeries: Patient denies: Neurologic Surgery Abdominal Surgeries: Surgical HX of: Abdominal Surgery (bowel obstruction surgery), Hernia Repair - Family History Family History: Reports;: Family Diabetes (brothers and sisters) - Social History Smoking Status: Former smoker Frequency of Alcohol Use: None Type of Drug Use: None Exam Vital Signs: Vital Signs Temperature 102.4 F H 01/08/17 02:27 Pulse Rate 108 H 01/08/17 02:27 Respiratory Rate 12 01/08/17 02:41 Blood Pressure 78/45 01/08/17 02:27 O2 Sat by Pulse Oximetry 90 L 01/08/17 02:27 - General General appearance: obtunded, in distress (Respiratory distress), other (Septic , shock appearing) - Head Head exam: Present: atraumatic, normocephalic - Eye Eye exam: Present: PERRL, EOMI - ENT ENT exam: Absent: normal oropharynx (dried feeding around the mouth, large amounts of aspirate and gastric contents in airway requiring suctioning) - Neck Neck exam: Present: trachea midline - Chest Chest inspection: Present: symmetric chest wall rise - Respiratory Respiratory exam: Present: accessory muscle use, respiratory distress, rhonchi - Cardiovascular Cardiovascular exam: Present: normal rhythm, tachycardia, normal heart sounds. Absent: regular rate - Abdominal Exam Abdominal exam: Present: soft, normal bowel sounds, other (Patent PEG tube) - Extremities Exam Extremities exam: Present: normal inspection - Back Exam Back exam: Present: normal inspection - Neurological Exam Neurological exam: Absent: alert - Skin Skin exam: Present: warm (febrile), dry Course Course Narrative: Upon patient arrival in respiratory distress we found patient to have a large amount of aspirate and gastric contents in her airway, requiring suctioning. We then intubated patient, placed an EJ and a central line. Patient is febrile with a fever of 102.4, she is septic and shock appearing. - Consultations Consultation #1: Hospitalist admit the patient Time: 04:10 Procedures - Central Line Placement Right Femoral Time Out Performed: Yes Patient Placed on Monitor/Pulse Ox: Yes MD Prep: mask, gown, gloves Central Line Prep: Chlorhexidine scrub Ultrasound Used for Placement: No Central Line Lumen Inserted: triple Post Procedure: sutured in place, good blood return, all ports aspirated, flushed, capped, sterile dressing applied Patient Tolerated Procedure: well, no complications Complications: none - EJ/Peripheral Line Neck R Time Out Performed: Yes Skin Cleansed in Sterile Fashion: Yes Size: 18 IV Secured and Dressing Applied: Yes Patient Tolerated Procedure: well, no complications - Intubation Time out performed: Yes sedative: Etomidate Mg Given: 20 paralytic: Vecuronium Mg Given: 10 Laryngoscope: fiber optic video scope Assist Device Used: fiber optic device ET Tube Size: 7.5 ET Tube Uncuffed: Yes Tube Secured Depth (cm): 23 Tube Secured Location: teeth Tube Placement Confirmation: visualized tube passing through cords, equal breath sounds bilaterally, confirmation detector color change Patient Tolerated Procedure: well, no complications Intubation Complications: none Results - Labs CBC & BMP: 01/08/17 03:04 01/08/17 03:04 Lab Results: I have reviewed the patients labs Labs: Laboratory Tests 01/08/17 02:55 ABG pH 7.362 ABG pCO2 47.5 ABG pO2 178.6 H ABG HCO3 26.4 H ABG Total CO2 27.8 H ABG O2 Saturation 99.0 ABG Base Excess 0.5 Laboratory Tests 01/08/17 01/08/17 03:04 03:04 Sodium 153 H Potassium 5.4 H Chloride 117 H BUN 125 H Creatinine 2.90 H BUN/Creatinine Ratio 43.00 H Glucose 340 H Calculated Osmolality 355.6 H Lactic Acid 4.1 H Calcium 10.4 H Alkaline Phosphatase 178 H Total Creatine Kinase 528 H CK-MB (CK-2) 2.7 Troponin I 0.138 H Albumin 2.4 L Globulin 5.3 H Albumin/Globulin Ratio 0.4 L Laboratory Tests 01/08/17 03:04 Urine Color Yellow Urine Appearance Slightly hazy Urine pH 5.0 Ur Specific Fortine 1.015 Urine Protein 30 Urine Glucose (UA) 150 Urine Ketones Negative Urine Blood Negative Urine Nitrate Negative Urine Bilirubin Negative Urine Urobilinogen < 2.0 H Urine Leukocytes Trace Urine RBC 1 Urine WBC 4 Ur Squamous Epith Cells Occasional Urine Bacteria Many Laboratory Tests 01/08/17 01/08/17 01/08/17 03:04 03:04 03:04 WBC 19.9 H RBC 4.07 Hgb 11.7 L Hct 40.3 MCHC 28.7 L RDW 17.8 H Plt Count 223 MPV 13.5 H Neut % (Auto) 84.1 H Lymph % (Auto) 8.5 L Neut # (Auto) 16.7 H [place] # (Auto) 1.2 H INR 1.1 PT Patient/Control Mix 11.8 Circ Anticoag PTT 25.3 Urine Color Yellow Urine Appearance Slightly hazy Urine pH 5.0 Ur Specific Fortine 1.015 Urine Protein 30 Urine Glucose (UA) 150 Urine Ketones Negative Urine Blood Negative Urine Nitrate Negative Urine Bilirubin Negative Urine Urobilinogen < 2.0 H Urine Leukocytes Trace Urine RBC 1 Urine WBC 4 Ur Squamous Epith Cells Occasional Urine Bacteria Many Critical Care Time Critical Care Time: Yes Total Critical Care Time: 60 Disposition Clinical Impression: Urinary tract infection, Leukocytosis, Chronic renal insufficiency, Elevated troponin, Altered mental status, unspecified, Renal insufficiency, On mechanically assisted ventilation, Acute respiratory failure, Aspiration pneumonia, PEG tube feeder, Failure to thrive, Septic shock, Fever, Hypoxia Case discussed with: patient, patient's family Disposition: Still a Patient Condition: Critical Time of Disposition: 04:11 Sepsis - Sepsis Classification of Sepsis: Septic Shock - Physical Exam Respiratory exam: decreased breath sounds, rhonchi Cardiovascular exam: tachycardia Skin exam: normal color
[2017-01-08] MEDS ORDERED: ALBUTEROL/IPRATROPIUM 3 ML NEB RESP TX PRN (04:14)
--- NOTE | 2017-01-08 04:24 | Hospitalist History & Physical ---
Assessment and Plan - Time spent with patient Time spent with patient: Greater than 30 minutes (1) Septic shock Status: Acute Assessment and plan: Admit to hospitalist services. Admit to ICU. Consult pulmonology. Sepsis protocol followed. Blood cultures obtained in ED; follow. Fluid resuscitation at 30 ml/kg bolus started in ED. Continue hydration with NS at 125 ml/hr. Clindamycin and Vancomycin given in ED. Continue Vancomycin Q12. Add Levaquin 750 mg Q24. Repeat CBC and Lactic acid. Obtain sputum culture. Current Visit: No (2) Acute respiratory failure Status: Acute Assessment and plan: Intubated. Consult pulmonology. DuoNebs Q6 and PRN. Repeat ABGs in am. Current Visit: No Qualifiers: Respiratory failure complication: hypoxia and hypercapnia Qualified Code(s) : J96.01 - Acute respiratory failure with hypoxia; J96.02 - Acute respiratory failure with hypercapnia (3) Aspiration pneumonia Status: Acute Assessment and plan: As above for Septic shock and Acute Respiratory Failure. Repeat CXR in 48 hours. Current Visit: Yes (4) Acute renal failure Status: Acute Assessment and plan: Rehydrate per sepsis protocol and then NS at 125 ml/hr. Recheck CMP in am. Current Visit: Yes (5) Hyperglycemia Status: Acute Assessment and plan: Last A1c was 6.1 in October 2016. Continue hydration. Accuchecks and SSI Q6 hours. Recheck CMP in am. Current Visit: Yes (6) Hyperkalemia Status: Acute Assessment and plan: Continue hydration. Recheck CMP in am. Current Visit: Yes (7) Hypernatremia Status: Acute Assessment and plan: Continue hydration. Recheck CMP in am. Current Visit: Yes (8) Hypercalcemia Status: Acute Assessment and plan: Continue hydration. Recheck CMP in am. Current Visit: Yes (9) Decubitus skin ulcer Status: Acute Assessment and plan: Daughter reports it is healing well. Consult wound care. Current Visit: Yes Qualifiers: Pressure ulcer location: sacral region Pressure ulcer stage: stage 2 Qualified Code(s): L89.152 - Pressure ulcer of sacral region, stage 2 (10) DVT prophylaxis Status: Acute Assessment and plan: Lovenox 30 mg SQ daily. Current Visit: Yes History of Present Illness Chief complaint: Aspiration; fever History of present illness: Ms. Oconnell is a 81 year old female with a past medical history of CHF, HTN, IDDM , hypothyroidism, asthma, COPD, small bowel obstruction, breast cancer, arthritis, CVA, and pacemaker placement who presented to the ED [facility] from [facility] with fever and aspiration following PEG tube feeding. The patient was intubated in the ED, so history was taken from daughter present at bedside. The daughter relates that patient received her PEG tube following a CVA that left her unable to swallow. She also relates that the patient has a healing sacral decubitus for which the patient has received ongoing wound care and is to be turned frequently. She has an appointment with Dr. Cespedes for follow up of the decubitus. ED work up was significant for WBC 19.9, Na 153, K 5.4, BUN 125, Creatinine 2.9, Glucose 340, Lactic acid 4.1, Ca 10.4, and Troponin 0.138. She is febrile with a temp of 102.4, tachycardic at 108 bpm, and hypotensive at 78/45. Hospitalist services were consulted and the patient will be admitted to ICU for ongoing evaluation and treatment. Her medications were reviewed and reconciled. This patient is a full code. Home Medications Medication Instructions Recorded Confirmed Type Skin Healing Oint (Aquaphor) 1 applic TOP PRN PRN applic 10/10/16 11/16/16 Rx [Aquaphor] Albuterol/Ipratropium Neb [Duoneb] 3 ml RESP TX RT Q6H 11/07/16 11/16/16 History Fluconazole Tab [Diflucan Tab] 400 mg PO DAILY 11/07/16 11/16/16 History Insulin Glargine [Lantus] 10 unit SUBCUT DAILY 11/07/16 11/16/16 History Insulin Regular, Human [NovoLIN R] See Protocol SUBCUT ACHS 11/07/16 11/16/16 History Magnesium Hydroxide [Milk of 30 ml PO Q24H PRN 11/07/16 11/16/16 History Magnesia] Metoclopramide HCl 10 mg PO Q6H 11/07/16 11/16/16 History Multivitamin (Centrum) [Centrum 1 tablet PO DAILY 11/07/16 11/16/16 History Tab] Nebivolol [Bystolic] 5 mg PO DAILY 11/07/16 11/16/16 History Acetaminophen Tab [Tylenol Tab] 325 mg PO Q4H PRN tablet 11/09/16 11/16/16 Rx Albuterol/Ipratropium Neb [Duoneb] 3 ml RESP TX RT Q6H #30 11/09/16 11/16/16 Rx Clopidogrel [Plavix] 75 mg PO DAILY #30 tablet 11/09/16 11/16/16 Rx Docusate Sodium Cap [Colace Cap] 100 mg PO BID PRN capsule 11/09/16 11/16/16 Rx Ertapenem [INVanz] 1,000 mg IV Q24H #7 vial 11/09/16 11/16/16 Rx Famotidine Tab [Pepcid Tab] 20 mg PO BID #60 tablet 11/09/16 11/16/16 Rx guaiFENesin/DM ER 600-30 [Mucinex 1 tablet PO BID PRN #20 tablet 11/09/16 Rx Dm 600-30 MG] Levofloxacin Tab [Levaquin Tab] 500 mg PO Q24H #7 tablet 11/11/16 11/16/16 Rx Allergies Allergy/AdvReac Type Severity Reaction Status Date / Time Penicillins Allergy ANAPHYLAXIS Verified 09/20/16 11:00 Medical,Surgical,& Family Hx - Medical History Cardio: History of: CHF, Hypertension, Pacemaker Neurology: History of: Cerebrovascular Accident Endocrine: History of: Diabetes Mellitus (IDDM) ([employer] ON KIDNEY DIALYSIS..), Thyroid Disorder Respiratory: History of: Asthma, COPD Genitourinary: History of: Recurring Urinary Tract Infections Gastrointestinal: History of: Bowel Obstruction (TWO BOWEL SURGERIES.), Gastrointestinal Cancer (CA OF STOMACH.) Musculoskeletal: History of: Musculoskeletal Problems (right knee arthritis) Reproductive: History of: Breast Cancer (2015) Other: History of: Cancer - Surgical History Cardiac Surgeries: Sugical HX of: Cardiac Surgery (Pacemaker placement) Neurologic Surgeries: Patient denies: Neurologic Surgery Abdominal Surgeries: Surgical HX of: Abdominal Surgery (bowel obstruction surgery), Hernia Repair - Family History Family History: Reports;: Family Diabetes (brothers and sisters) - Social History Smoking Status: Former smoker Have you smoked in the last 12 months: No Frequency of Alcohol Use: None Type of Drug Use: None Marital Status: Lives With:: halfway Functional capacity: wheelchair bound ROS unobtainable: due to endotracheal tube Exam - Constitutional Vitals: Period Temp Pulse Resp BP Sys/Quezada Pulse Ox Last 24 Hr 102.4 F-102.4 F 108-108 12-44 78-78/45-45 90 Exam: Constitutional System: Febrile. Intubated. Head: Normocephalic, atraumatic. Ears, Nose and Throat System: Mucus membranes dry. No epistaxis or discharge Eyes System: Eyes closed, sedated, intubated. Neck: Supple, without adenopathy, [No] jugular venous distention. No thyromegaly , neck mass, or prior surgery apparent. Respiratory System: Rhonchi on right, left [place] CTA. Cardiovascular System: Heart with [tachycardic] rate and regular rhythm. [No] murmur. GI System: Abdomen [soft]. [Normo]active bowel sounds present. PEG tube present. Musculoskeletal System: Limbs with [no] pedal edema. [Full] distal pulses. Normal capillary refill. Neurological System: Intubated, sedated. Psychiatric System: Intubated, sedated. Results - Labs CBC & BMP: 01/08/17 03:04 01/08/17 03:04 Lab Results: I have reviewed the past 24 hour labs - EKG EKG shows: tachycardia - Diagnostic Findings Procedure: Chest x-ray: image reviewed by me (Report pending. ) Sepsis - Sepsis Classification of Sepsis: Septic Shock Sepsis documentation within 6 hours of presentation: fluid change - Physical Exam Respiratory exam: rhonchi Capillary Refill: Less Than 3 Seconds Peripheral pulses: Radial (L): 3+/4+, Radial (R): 3+/4+, Dorsalis Pedis (L) PM: 3+/4+, Dorsalis Pedis (R) PM: 3+/4+, Posterior Tibialis (L): 3+/4+, Posterior Tibialis (R): 3+/4+ Cardiovascular exam: tachycardia Skin exam: normal color
[2017-01-08 05:10] LABS: Anisocytosis 1+; Platelet Estimate Normal
[2017-01-08] MEDS ORDERED: LEVOFLOXACIN INJ 750 MG in PREMIX 1 EACH IV ONE (05:30)
[2017-01-08] MEDS ORDERED: DEXTROSE 50% 25 GM/50 ML SYRINGE IV PRN (05:40)
[2017-01-08] MEDS ORDERED: GLUCAGON 1 MG VIAL IM PRN (05:40)
[2017-01-08] MEDS ORDERED: SODIUM CHLORIDE 0.9% 1,000 ML IV ONE (05:55)
[2017-01-08] MEDS ORDERED: NOREPINEPHRINE 4 MG/4 ML VIAL IV ONE ×3 (05:57→11:50)
[2017-01-08] MEDS: INSULIN LISPRO 100 UNIT/ML SUBCUT SCH ×3 (06:10→18:45)
[2017-01-08 06:52] LABS: Basophils % 0.2 % (0.0-0.8); Eosinophils % 0.2 % (0.00-10.9); Hematocrit 32.4 VOL% (35.7-47.0); Hemoglobin 9.2 GM/DL (12.0-16.0); Immature Granulocytes % 0.4 %; Immature Granulocytes Absolute 0.07 #; Lymphocytes # 2.1 10*3/uL (1.4-4.0); Lymphocytes % 12.6 % (21.3-54.2); Mean Corpuscular HGB Conc 28.4 GM/DL (32-36); Mean Corpuscular Hemoglobin 29 PG (27-34); Mean Corpuscular Volume 102.2 FL (87-102); Mean Platelet Volume 12.8 FL (9.6-12.0); Monocytes # 1.9 10*3/uL (0.11-0.8); Monocytes % 11.6 % (1.7-12.7); Neutrophils # 12.5 10*3/uL (1.4-7.4); Platelet Count 164 T/CUMM (130-400); Red Blood Count 3.17 MC/CUMM (3.8-5.5); Red Cell Distribution Width 17.8 % (9.3-17.3); White Blood Count 16.7 T/CUMM (4-12)
[2017-01-08] MEDS: SODIUM CHLORIDE 0.9% 1,000 ML IV SCH ×2 (07:15→14:41)
[2017-01-08] MEDS: ALBUTEROL/IPRATROPIUM 3 ML NEB RESP TX SCH ×3 (07:17→19:26)
[2017-01-08 07:22] LABS: Alanine Aminotransferase 15 U/L (13-56); Albumin 1.8 G/DL (3.4-5.0); Alkaline Phosphatase 123 U/L (45-117); Aspartate Amino Transferase 21 U/L (0-37); Bilirubin,Total < 0.39 MG/DL (0.2-1.0); Blood Urea Nitrogen 106 MG/DL (7-18); Calcium 8.5 MG/DL (8.5-10.1); Glucose 291 MG/DL (74-106); Osmolality,Calculated 350.3 MOS/KG (273-304); Potassium 4.9 MMOL/L (3.5-5.1); Sodium 155 MMOL/L (136-145); Total Protein 5.7 G/DL (6.4-8.3)
[2017-01-08] MEDS: NOREPINEPHRINE 8 MG in SODIUM CHLORIDE 0.9% 242 ML IV SCH ×3 (07:30→18:56)
[2017-01-08] MEDS: PROPOFOL 1,000 MG/100 ML BOTTLE IV SCH ×3 (07:30→21:11)
[2017-01-08 07:41] LABS: Hypochromasia Slight
--- NOTE | 2017-01-08 08:23 | Pulmonology Consult Note ---
Assessment and Plan (1) History of breast cancer Status: Chronic Assessment and plan: Remote history no evidence of recurrent disease. Current Visit: No (2) Diabetes mellitus Status: Chronic Assessment and plan: Blood sugars in the 300s. Sliding scale insulin. Current Visit: No Qualifiers: Diabetes mellitus type: type 2 Chronic kidney disease stage: stage 2 (mild ) (3) Septic shock Status: Acute Assessment and plan: Patient has been given fluid boluses. On pressors. Broad-spectrum antibiotics. Pneumonia is the likely cause of the septic shock. Certainly could be urinary or skin ulcer as cause as well. Current Visit: No (4) Hypernatremia Status: Acute Assessment and plan: Sodium was 155. Need to hydrate with hypotonic solution. Current Visit: Yes (5) Renal insufficiency Status: Acute Assessment and plan: Creatinine down to 2.5. BUN 106. At least an element of prerenal azotemia due to dehydration Current Visit: Yes (6) Acute respiratory failure Status: Acute Assessment and plan: Mechanical ventilation. Adjust ventilator as indicated. She has a lot of thick secretions. Treat with antibiotics. Will bronchoscope and clean her out this morning. Current Visit: Yes (7) Aspiration pneumonia Status: Acute Assessment and plan: Appropriate antibiotics. Has thick secretions. Will bronchoscope her and clean her out and get cultures. Current Visit: Yes (8) Septic shock Status: Acute Assessment and plan: Remains hypotensive despite IV fluids and pressors. Give additional fluids. Current Visit: Yes History of Present Illness Chief complaint: Respiratory failure History of present illness: Ms. Oconnell is a 81 year old female who has had a previous stroke and required a PEG tube for feedings after that. Apparently she was noted to aspirate at home and developed cough and fever and felt to have aspiration pneumonia. She was emergency room and intubated. She is hypotensive in apparently septic shock. Had a temperature of 102.4. Blood pressure was 78 in the emergency room systolic. Presently she is on the ventilator not responsive. Home Medications Medication Instructions Recorded Confirmed Type Skin Healing Oint (Aquaphor) 1 applic TOP PRN PRN applic 10/10/16 11/16/16 Rx [Aquaphor] Albuterol/Ipratropium Neb [Duoneb] 3 ml RESP TX RT Q6H 11/07/16 11/16/16 History Fluconazole Tab [Diflucan Tab] 400 mg PO DAILY 11/07/16 11/16/16 History Insulin Glargine [Lantus] 10 unit SUBCUT DAILY 11/07/16 11/16/16 History Insulin Regular, Human [NovoLIN R] See Protocol SUBCUT ACHS 11/07/16 11/16/16 History Magnesium Hydroxide [Milk of 30 ml PO Q24H PRN 11/07/16 11/16/16 History Magnesia] Metoclopramide HCl 10 mg PO Q6H 11/07/16 11/16/16 History Multivitamin (Centrum) [Centrum 1 tablet PO DAILY 11/07/16 11/16/16 History Tab] Nebivolol [Bystolic] 5 mg PO DAILY 11/07/16 11/16/16 History Acetaminophen Tab [Tylenol Tab] 325 mg PO Q4H PRN tablet 11/09/16 11/16/16 Rx Albuterol/Ipratropium Neb [Duoneb] 3 ml RESP TX RT Q6H #30 11/09/16 11/16/16 Rx Clopidogrel [Plavix] 75 mg PO DAILY #30 tablet 11/09/16 11/16/16 Rx Docusate Sodium Cap [Colace Cap] 100 mg PO BID PRN capsule 11/09/16 11/16/16 Rx Ertapenem [INVanz] 1,000 mg IV Q24H #7 vial 11/09/16 11/16/16 Rx Famotidine Tab [Pepcid Tab] 20 mg PO BID #60 tablet 11/09/16 11/16/16 Rx guaiFENesin/DM ER 600-30 [Mucinex 1 tablet PO BID PRN #20 tablet 11/09/16 Rx Dm 600-30 MG] Levofloxacin Tab [Levaquin Tab] 500 mg PO Q24H #7 tablet 11/11/16 11/16/16 Rx Allergies Allergy/AdvReac Type Severity Reaction Status Date / Time Penicillins Allergy ANAPHYLAXIS Verified 09/20/16 11:00 ROS unobtainable: due to endotracheal tube, due to mental status Exam (Pulmonay) H&P - Constitutional Vitals: Period Temp Pulse Resp BP Sys/Quezada Pulse Ox Last 24 Hr 100.2 F-102.4 F 86-108 12-60 59-97/30-45 90-100 Exam: Patient is unresponsive. On the ventilator. Maximum temperature 100.2 last night. Systolic blood pressure in the mid 80s. She is on pressors. Pupils reactive. Face symmetrical. Orotracheal tube in place. Neck is supple. Chest reveals some rhonchi and rales at the right base. Otherwise clear. Heart normal rate and rhythm no murmurs. Abdomen is soft bowel sounds present no masses. PEG tube in place. Extremities she does have sacral decubitus ulcer. It is bandaged. There is no clubbing cyanosis or edema. Medical,Surgical,& Family Hx - Medical History Cardio: History of: CHF, Hypertension, Pacemaker Neurology: History of: Cerebrovascular Accident No history of: Seizures Endocrine: History of: Diabetes Mellitus (IDDM) ([employer] ON KIDNEY DIALYSIS..), Diabetes Mellitus (NIDDM), Thyroid Disorder Respiratory: History of: Asthma, COPD, Pneumonia Genitourinary: History of: Recurring Urinary Tract Infections Gastrointestinal: History of: Bowel Obstruction (TWO BOWEL SURGERIES.), GERD, Gastrointestinal Cancer (CA OF STOMACH.) Musculoskeletal: History of: Musculoskeletal Problems (right knee arthritis) Reproductive: History of: Breast Cancer (2015) Other: History of: Cancer, MRSA - Surgical History Cardiac Surgeries: Sugical HX of: Cardiac Surgery (Pacemaker placement) Neurologic Surgeries: Patient denies: Neurologic Surgery Abdominal Surgeries: Surgical HX of: Abdominal Surgery (bowel obstruction surgery x 2), Hernia Repair - Family History Family History: Reports;: Family Diabetes (brothers and sisters) - Social History Smoking Status: Former smoker Frequency of Alcohol Use: None Type of Drug Use: None Results - Labs CBC & BMP: 01/08/17 06:48 01/08/17 06:48 Lab Results: I have reviewed the past 24 hour labs - Diagnostic Findings Procedure: Chest x-ray: image reviewed by me (ET tube is down right mainstem bronchus. We have repositioned it. Right lower lobe infiltrate.)
[2017-01-08] MEDS ORDERED: LIDOCAINE 1% 20 ML VIAL MISC INJ ONE (08:26)
[2017-01-08] MEDS ORDERED: SODIUM CHLORIDE 0.45% 1,000 ML IV ONE (08:27)
[2017-01-08] MEDS ORDERED: FAMOTIDINE 8 MG/ML 50 ML/BOTTLE PO SCH (09:00)
--- NOTE | 2017-01-08 09:08 | Operative Note ---
Date of procedure: 01/08/17 (Fiberoptic bronchoscopy with removal of retained secretions) Pre-op diagnosis: Aspiration pneumonia with retained secretions Post-op diagnosis: same Procedure: After an appropriate timeout to be sure we were dealing with Ritika Oconnell, the ventilator was turned to 100% oxygen. Fiberoptic bronchoscope was introduced via the side arm of the endotracheal tube. Patient was already on sedation. The tip of the endotracheal tube was 2 cm above the ashleigh. There were thick secretions draped across the ashleigh and going to both lungs. There were retained sticky white secretions in all 5 lobes. There were no endobronchial lesions. Using saline irrigation we sequentially lavaged all 5 lobes. Bronchial washings were sent for cultures. The bronchoscope was removed and the patient remained on the ventilator in the CCU in critical condition. Anesthesia: conscious sedation Surgeon / Physician: Lambert Quinonez Estimated blood loss: none Specimens: other (Bronchial washings for cultures) Condition: stable Disposition: ICU (Actually ccu) Results - Labs CBC & BMP: 01/08/17 06:48 01/08/17 06:48 Discharge Plan - Discharge Medications No Action Fluconazole Tab [Diflucan Tab] 400 mg PO DAILY Magnesium Hydroxide [Milk of Magnesia] 30 ml PO Q24H PRN PRN Reason: Constipation Multivitamin (Centrum) [Centrum Tab] 1 tablet PO DAILY Albuterol/Ipratropium Neb [Duoneb] 3 ml RESP TX RT Q6H Insulin Regular, Human [NovoLIN R] See Protocol SUBCUT ACHS Albuterol/Ipratropium Neb [Duoneb] 3 ml RESP TX RT Q6H #30 Docusate Sodium Cap [Colace Cap] 100 mg PO BID PRN capsule PRN Reason: Constipation Ertapenem [INVanz] 1,000 mg IV Q24H #7 vial Famotidine Tab [Pepcid Tab] 20 mg PO BID #60 tablet guaiFENesin/DM ER 600-30 [Mucinex Dm 600-30 MG] 1 tablet PO BID PRN #20 tablet PRN Reason: Congestion Levofloxacin Tab [Levaquin Tab] 500 mg PO Q24H #7 tablet Skin Healing Oint (Aquaphor) [Aquaphor] 1 applic TOP PRN PRN applic PRN Reason: Dry Skin Nebivolol [Bystolic] 5 mg PO DAILY Insulin Glargine [Lantus] 10 unit SUBCUT DAILY Metoclopramide HCl 10 mg PO Q6H Acetaminophen Tab [Tylenol Tab] 325 mg PO Q4H PRN tablet PRN Reason: fever, headache/body aches Clopidogrel [Plavix] 75 mg PO DAILY #30 tablet - Follow Up or Referral - Forms/Instructions
--- NOTE | 2017-01-08 09:12 | XRay Report ---
Portable chest. Indication: Endotracheal tube placement. Comparison: Exam from 4 hours earlier. The heart is normal in size with left ventricular hypertrophy. An endotracheal tube has been repositioned, and is now 2 cm above the ashleigh. Cardiac hardware is in satisfactory position. The pulmonary vasculature is prominent. The interstitial lung markings are prominent. Atelectasis in the right lung base is still present but shows improvement. No pneumothorax or pleural effusion. Prominent degenerative changes of the shoulders and spinal column. Surgical clips in the right upper quadrant. Impression: Repositioning of the endotracheal tube to a satisfactory position. Some improvement in right basilar atelectasis. PROCEDURE INTERPRETED AT [facility] DEPARTMENT OF RADIOLOGY Final Report Signed by: Dr. Magda Martin
--- NOTE | 2017-01-08 09:16 | XRay Report ---
Portable chest. Indication: Respiratory failure. Intubated patient. Comparison: November 11, 2016. The heart size is normal. There is calcific plaque present within the aortic knob. The interstitial lung markings are prominent but improved from the previous. The pulmonary vasculature is prominent. There is atelectasis or pneumonia the right lung base. The distal tip of an endotracheal tube is in the right mainstem bronchus and needs to be retracted. Cardiac hardware is in satisfactory position. Impression: Right basilar atelectasis versus pneumonia. Endotracheal tube needs to be repositioned. PROCEDURE INTERPRETED AT [facility] DEPARTMENT OF RADIOLOGY Final Report Signed by: Dr. Magda Martin
[2017-01-08] MEDS: CLOPIDOGREL 75 MG TABLET PO SCH (09:48)
[2017-01-08] MEDS: ENOXAPARIN 30 MG/0.3 ML SYRINGE SUBCUT SCH (09:48)
--- NOTE | 2017-01-08 12:39 | Hospitalist Progress Note ---
Assessment and Plan (1) Acute respiratory failure Status: Acute Assessment and plan: Dr. Quinonez was consulted and managing that. Respiratory failure due to aspiration. Current Visit: Yes (2) Aspiration pneumonia Status: Acute Assessment and plan: Status post bronchoscopy today by Dr. Quinonez. History of E. coli and MRSA in bronchoscopy cultures in the past. Will use Rocephin and vancomycin. Current Visit: Yes (3) Septic shock Status: Acute Assessment and plan: Continue pressure support, blood cultures 2 pending, continue IV antibiotics., lactic acid improving Current Visit: Yes (4) Hypernatremia Status: Acute Assessment and plan: Severe dehydration we will increase free water through PEG tube feedings Current Visit: Yes (5) Acute on chronic renal failure Status: Acute Assessment and plan: Gentle hydration with a quarter normal saline and 1 amp of bicarb Current Visit: Yes (6) Diabetes Status: Acute Assessment and plan: Blood sugars poorly controlled, order hemoglobin A1c and start Lantus Current Visit: Yes (7) Anemia Status: Acute Assessment and plan: Continue to monitor, continue Protonix Current Visit: Yes (8) COPD exacerbation Status: Acute Assessment and plan: Continue duo nebs, hold steroids no evidence of wheezing Current Visit: No Hospitalist: Subjective Interval history: [facility] [place] and was found to have respiratory failure due to aspiration. No family present at the time. Patient intubated and sedated. Patient currently requiring pressors Exam - Constitutional Vitals: Period Temp Pulse Resp BP Sys/Quezada Pulse Ox Last 24 Hr 97.6 F-102.4 F 65-108 10-60 53-122/26-56 90-100 Exam: Heart Rate-[RRR] Lungs-[coarse rhonchi bilateral] GI-[+bs soft, NT] Neuro sedated and intubated psych unable to assess due to sedation and intubation General [no acute distress] Results - Labs CBC & BMP: 01/08/17 06:48 01/08/17 06:48 Lab Results: I have reviewed the past 24 hour labs Labs: Blood cultures 2 pending, UA negative for infection - Diagnostic Findings Procedure: Chest x-ray: report reviewed by me (Right lower lobe pneumonia with reposition of ET tube, bilateral interstitial markings are prominent)
[2017-01-08] MEDS ORDERED: DOCUSATE SODIUM 100 MG CAPSULE PO PRN (12:55)
[2017-01-08] MEDS ORDERED: SKIN HEALING OINT (AQUAPHOR) 50 GM TUBE TOP PRN (12:55)
[2017-01-08] MEDS ORDERED: MAGNESIUM HYDROXIDE SUSP 30 ML UDCUP PO PRN (12:55)
[2017-01-08] MEDS: PANTOPRAZOLE 40 MG VIAL IV SCH (13:49)
[2017-01-08] MEDS: INSULIN GLARGINE 100 UNIT/ML SUBCUT SCH (13:49)
[2017-01-08] MEDS: METOCLOPRAMIDE 10 MG TABLET PO SCH ×2 (13:50→18:45)
[2017-01-08] MEDS ORDERED: cefTRIAXone 2,000 MG in SODIUM CHLORIDE 0.9% 100 ML IV SCH (14:00)
[2017-01-08] MEDS: SODIUM CHLORIDE 23.4% CONC INJ 38.5 MEQ, SODIUM BICARB INJ 50 MEQ in STERILE WATER INJ ... IV SCH (15:09)
[2017-01-09] MEDS: ALBUTEROL/IPRATROPIUM 3 ML NEB RESP TX SCH ×4 (00:01→19:36)
[2017-01-09] MEDS: METOCLOPRAMIDE 10 MG TABLET PO SCH ×4 (00:14→21:01)
[2017-01-09] MEDS: INSULIN LISPRO 100 UNIT/ML SUBCUT SCH ×5 (00:14→23:42)
[2017-01-09] MEDS: NOREPINEPHRINE 8 MG in SODIUM CHLORIDE 0.9% 242 ML IV SCH ×3 (02:11→15:11)
[2017-01-09] MEDS: SODIUM CHLORIDE 23.4% CONC INJ 38.5 MEQ, SODIUM BICARB INJ 50 MEQ in STERILE WATER INJ ... IV SCH ×3 (02:11→23:54)
[2017-01-09 03:30] LABS: ABG Base Excess -3.1 MMOL/L (-2.5-2.5); ABG HCO3 22.3 MMOL/L (20-26); ABG Oxygen Saturation 98.8 % (95-100); ABG PCO2 41.5 MM HG (35-48); ABG PH 7.348 (7.35-7.45); ABG PO2 154.5 MM HG (80-95); ABG TCO2 23.6 MMOL/L (23-27); Allen Test Positive; Pt O2 Delivery Device Ventilator
[2017-01-09] MEDS: PROPOFOL 1,000 MG/100 ML BOTTLE IV SCH ×4 (04:20→23:38)
[2017-01-09 07:02] LABS: Alanine Aminotransferase 12 U/L (13-56); Albumin 1.6 G/DL (3.4-5.0); Alkaline Phosphatase 104 U/L (45-117); Aspartate Amino Transferase 18 U/L (0-37); Bilirubin,Total < 0.39 MG/DL (0.2-1.0); Blood Urea Nitrogen 76 MG/DL (7-18); Calcium 8.6 MG/DL (8.5-10.1); Glucose 168 MG/DL (74-106); Sodium 150 MMOL/L (136-145); Total Protein 5.4 G/DL (6.4-8.3)
[2017-01-09 07:44] LABS: Basophils # 0.1 10*3/uL (0.0-0.2); Basophils % 0.3 % (0.0-0.8); Eosinophils # 0.3 10*3/uL (0.0-0.87); Eosinophils % 1.2 % (0.00-10.9); Hematocrit 29.8 VOL% (35.7-47.0); Immature Granulocytes Absolute 0.21 #; Lymphocytes # 2.5 10*3/uL (1.4-4.0); Lymphocytes % 11.6 % (21.3-54.2); Mean Corpuscular HGB Conc 28.2 GM/DL (32-36); Mean Corpuscular Hemoglobin 29 PG (27-34); Mean Corpuscular Volume 102.1 FL (87-102); Mean Platelet Volume 13.6 FL (9.6-12.0); Monocytes # 1.9 10*3/uL (0.11-0.8); Monocytes % 9.1 % (1.7-12.7); Neutrophils # 16.4 10*3/uL (1.4-7.4); Neutrophils % 76.8 % (38.7-73.9); Platelet Count 163 T/CUMM (130-400); Red Blood Count 2.92 MC/CUMM (3.8-5.5); Red Cell Distribution Width 17.3 % (9.3-17.3); White Blood Count 21.4 T/CUMM (4-12)
[2017-01-09 07:46] LABS: Hemoglobin 8.4 GM/DL (12.0-16.0)
[2017-01-09 07:59] LABS: Band Neutrophils 17 % (0-10); Eosinophils 3 % (0-10); Lymphocytes 13 % (20-55); Metamyelocytes 3 %; Segmented Neutrophils 60 % (50-85); Total Cells Counted 100
[2017-01-09 08:00] LABS: Hypochromasia 1+
[2017-01-09 08:01] LABS: Macrocytosis 1+; Platelet Estimate Adequate
--- NOTE | 2017-01-09 09:17 | Hospitalist Progress Note ---
Assessment and Plan (1) Aspiration pneumonia Status: Acute Assessment and plan: The patient is receiving treatment for aspiration pneumonia via supportive ventilation and IV antibiotics. I anticipate improvement of lung function within the next couple of days and hope that she will be able to wean from ventilator by the end of the week. We will recheck electrolytes and ABG as well as chest x-ray in the morning. Current Visit: Yes Qualifiers: Aspiration pneumonia type: due to gastric secretions Laterality: right Lung location: lower lobe of lung Qualified Code(s): J69.0 - Pneumonitis due to inhalation of food and vomit (2) COPD (chronic obstructive pulmonary disease) Status: Chronic Current Visit: No Qualifiers: COPD type: chronic bronchitis Chronic bronchitis type: simple Qualified Code(s): J41.0 - Simple chronic bronchitis (3) History of breast cancer Status: Chronic Current Visit: No (4) Chronic renal insufficiency Status: Acute Current Visit: Yes Hospitalist: Subjective Interval history: Mrs. ramos continues on mechanical ventilation and IV antibiotics for treatment of aspiration pneumonia. Bronchial washings are growing gram- positive cocci likely due to MRSA. The patient is hemodynamically stable. Exam - Constitutional Vitals: Period Temp Pulse Resp BP Sys/Quezada Pulse Ox Last 24 Hr 97.8 F-98.8 F 55-73 11-22 66-125/36-59 98-100 Exam: Constitutional System: Minimal distress. No tremulousness. The patient is sedated Head: Normocephalic, atraumatic. Ears, Nose and Throat System: No evidence of Otitis or Mastoiditis. No epistaxis or discharge Eyes System: Pupils equal, round, and reactive. Neck: Supple, without adenopathy, No jugular venous distention. No thyromegaly , neck mass, or prior surgery apparent. Respiratory System: Chest rhonchi worse on the right to auscultation. Cardiovascular System: Heart with regular rate and rhythm. No murmur. GI System: Abdomen soft, nontender. Normo active bowel sounds present. Musculoskeletal System: limbs with 1+ pedal edema. Full distal pulses. Neurological System: Not testable due to sedation Results - Labs CBC & BMP: 01/09/17 03:45 01/09/17 03:45 Lab Results: I have reviewed the past 24 hour labs
--- NOTE | 2017-01-09 09:48 | Pulmonology Progress Note ---
Pulmonary - PN: Subj Interval history: This 81-year-old black female who is seen in pulmonary consultation on my behalf by Dr. Lambert Quinonez. Patient was admitted to the hospital on 01/08/2017 after transfer from [facility]. Patient was thought to have aspirated from her PEG feedings. She had developed fever and chills. She required intubation in the emergency room. Her daughter said that she had a healing sacral decubitus ulcer and had been receiving wound care for this. Dr. Roosevelt Cespedes follows her decubitus ulcer. Patient was febrile. She had a sodium of 153. Creatinine was 2.9 with a BUN of 125. Lactic acid was elevated at 4.1. Troponins are 0.138. She was hypotensive with a blood pressure of 78/ 45. Heart rate was 108/min and temp was 102.4. On 01/08/2017 patient was evaluated by Dr. Quinonez with fiberoptic bronchoscopy. Great deal of material was removed. See his report. Bronchoscopy specimens are growing 2 different gram-positive cocci. Sputum is growing a gram-negative edwin and 2 different gram-positive cocci. Patient has MRSA in the nares. Urine cultures growing a gram-negative edwin. Chest x-ray. 01/09/2017. Cardiomegaly. Bibasilar atelectasis. His chest x- ray is markedly improved from one done 01/08/2017 which showed a significant right lower lung infiltrate. Lab. White count is 21,400. H&H is 8.4/29.8. Platelets are 163,000. Sodium is dropped to 150 with a potassium of 4.0. Creatinine has dropped from 2.50- 1.80 with a BUN of 76. Liver function tests are normal. Natruretic peptide is 183. Protein and albumin are low at 5.41.6 respectively. ABGs. Mechanical ventilation. FiO2 60%. PH is 7.348, PCO2 is 41.5, PO2 is 154.5. Bicarb is 22.3. Medicines. Agree with vancomycin. Pharmacology is managing this. I am changing the patient's Rocephin to Fortaz for better gram-negative edwin coverage. Patient will be started with a test dose. Physical exam. Vital signs. See below. Afebrile. Face is symmetrical. Lips appear to be normal. The tongue is very large and may be swollen. Neurologic. Patient is sedated. Neck. Symmetrical. No meningismus Lymphatics. No submandibular cervical or supraclavicular adenopathy. Chest. Significant large airway congestion Heart. No gallop Abdomen. Nondistended. Few bowel sounds are heard Extremities. No evidence of deep venous thrombophlebitis The remainder the physical exam is noncontributory. Plan. 1. Check bronchoscopy specimens 2. We will repeat fiberoptic bronchoscopy in the morning. 3. Mechanical ventilation weaning protocol including physical therapy protocol 4. Change Rocephin to Fortaz. Begin with test dose. Note allergy to penicillin. 5. Large tongue. Watch. Exam (Progress Note) - Constitutional Vitals: Period Temp Pulse Resp BP Sys/Quezada Pulse Ox Last 24 Hr 97.8 F-98.8 F 55-71 11-22 66-125/36-59 98-100 Results - Labs CBC & BMP: 01/09/17 03:45 01/09/17 03:45
[2017-01-09] MEDS ORDERED: cefTAZidime 500 MG in SODIUM CHLORIDE 0.9% 100 ML IV SCH (10:00)
--- NOTE | 2017-01-09 10:48 | XRay Report ---
XR chest 1V portable Indication: Ventilator Comparison: Chest x-ray January 08, 2017 at 7:58 AM Technique: Single frontal view of the chest. Findings: Endotracheal tube tip approximately 5 cm above the ashleigh. Continued cardiomegaly. Pacemaker apparatus again demonstrated. Continued nonspecific bilateral interstitial prominence which is most suspicious for interstitial pulmonary edema. Visualized osseous and surrounding soft tissue structures appear grossly unchanged. IMPRESSION: As above. PROCEDURE INTERPRETED AT [facility] DEPARTMENT OF RADIOLOGY Final Report Signed by: Dr Osman Willoughby
[2017-01-09] MEDS: MUPIROCIN 2% OINT 22 GM TUBE TOP SCH ×2 (11:50→21:01)
[2017-01-09] MEDS: INSULIN GLARGINE 100 UNIT/ML SUBCUT SCH (11:51)
[2017-01-09] MEDS: ENOXAPARIN 30 MG/0.3 ML SYRINGE SUBCUT SCH (11:52)
[2017-01-09] MEDS: PANTOPRAZOLE 40 MG VIAL IV SCH (11:53)
[2017-01-09] MEDS: CLOPIDOGREL 75 MG TABLET PO SCH (12:01)
[2017-01-09] MEDS: cefTAZidime 500 MG in SODIUM CHLORIDE 0.9% 100 ML IV SCH (23:59)
[2017-01-10] MEDS: METOCLOPRAMIDE 10 MG TABLET PO SCH ×4 (00:01→18:31)
[2017-01-10] MEDS: ALBUTEROL/IPRATROPIUM 3 ML NEB RESP TX SCH ×4 (01:54→19:28)
[2017-01-10 03:55] LABS: ABG Base Excess -0.5 MMOL/L (-2.5-2.5); ABG HCO3 23.8 MMOL/L (20-26); ABG PCO2 37.4 MM HG (35-48); ABG PH 7.422 (7.35-7.45); ABG PO2 179.1 MM HG (80-95); Pt O2 Delivery Device Ventilator
[2017-01-10] MEDS: NOREPINEPHRINE 8 MG in SODIUM CHLORIDE 0.9% 242 ML IV SCH ×2 (04:08→19:56)
[2017-01-10 05:30] LABS: Basophils # 0.1 10*3/uL (0.0-0.2); Basophils % 0.2 % (0.0-0.8); Eosinophils # 0.6 10*3/uL (0.0-0.87); Eosinophils % 2.5 % (0.00-10.9); Hematocrit 28.6 VOL% (35.7-47.0); Hemoglobin 8.5 GM/DL (12.0-16.0); Immature Granulocytes % 0.8 %; Immature Granulocytes Absolute 0.18 #; Lymphocytes # 2.6 10*3/uL (1.4-4.0); Lymphocytes % 11.2 % (21.3-54.2); Mean Corpuscular HGB Conc 29.7 GM/DL (32-36); Mean Corpuscular Hemoglobin 29 PG (27-34); Mean Corpuscular Volume 97.9 FL (87-102); Mean Platelet Volume 13.5 FL (9.6-12.0); Monocytes # 2.1 10*3/uL (0.11-0.8); NRBC # 0.06 10*3/uL; Neutrophils # 17.4 10*3/uL (1.4-7.4); Neutrophils % 76.3 % (38.7-73.9); Platelet Count 183 T/CUMM (130-400); Red Blood Count 2.92 MC/CUMM (3.8-5.5); Red Cell Distribution Width 17.1 % (9.3-17.3); White Blood Count 22.8 T/CUMM (4-12)
[2017-01-10] MEDS ORDERED: LEVOFLOXACIN INJ 500 MG in PREMIX 1 EACH IV SCH (05:30)
[2017-01-10] MEDS: INSULIN LISPRO 100 UNIT/ML SUBCUT SCH ×3 (05:45→18:28)
[2017-01-10 06:09] LABS: Band Neutrophils 2 % (0-10); Eosinophils 1 % (0-10); Giant Platelets Few; Hypochromasia 1+; Lymphocytes 9 % (20-55); Microcytosis 1+; Ovalocytes Slight; Platelet Estimate Normal; Segmented Neutrophils 83 % (50-85); Total Cells Counted 100
[2017-01-10 06:12] LABS: Albumin 1.5 G/DL (3.4-5.0); Bilirubin,Total 0.7 MG/DL (0.2-1.0); Calcium 8.9 MG/DL (8.5-10.1); Osmolality,Calculated 306.4 MOS/KG (273-304); Potassium 3.7 MMOL/L (3.5-5.1); Total Protein 5.5 G/DL (6.4-8.3)
[2017-01-10 06:13] LABS: Phosphorous 2.6 MG/DL (2.5-4.9); Prealbumin 5.8 MG/DL (20-40)
[2017-01-10] MEDS ORDERED: VANCOMYCIN INJ 1,250 MG in SODIUM CHLORIDE 0.9% 250 ML IV SCH (07:00)
--- NOTE | 2017-01-10 08:16 | XRay Report ---
History is follow-up pneumonia respiratory failure Comparison 01/09/2017 ET tube is been advanced with the tip 1 cm above the ashleigh. The heart and vessels are enlarged with continued diffuse bilateral reticular and hazy pulmonary opacities unchanged accounting for technique and positioning. No consolidation seen. Right apex is obscured Impression: 1. Interval advancement of ET tube otherwise Little change in diffuse pulmonary opacities PROCEDURE INTERPRETED AT [facility] DEPARTMENT OF RADIOLOGY Final Report Signed by: Dr. Brit Martin
--- NOTE | 2017-01-10 08:51 | Event Note ---
In-hospital diagnostic and therapeutic fiberoptic bronchoscopy. Bilateral bronchial alveolar lavage specimens were sent for Gram stain, bacterial cultures , fungal stains and culture. This is an 81-year-old black female on mechanical ventilation. She has a right lower lung pneumonia and bibasilar atelectasis. Her cough is ineffective and she has retained secretions. For these reasons she is evaluated with fiberoptic bronchoscopy. Endotracheal tube is in good position. Distal trachea was normal. Tiara was sharp The right mainstem bronchus was full of dictation brownish secretions that extended into the right upper lung, right middle lung, right lower lung. All 3 lobes were lavaged until clear. There was mild collapsibility of the large and small airways. There was mild erosive bronchitis in the right lower lung. No other abnormalities were noted The left mainstem bronchus was full of the similar secretions to those seen on the right. These extended into the left upper lung and left lower lung. Both lobes were lavaged until clear. There was mild collapsibility of the large and small airways. No endobronchial lesions to suggest cancer were seen. The patient tolerated procedure well there were no Complications Impression. 1. Mechanical ventilation 2. Ineffective cough 3. Retained secretions 4. No unresolved pneumonia 5. Bibasilar atelectasis. Plan. 1. Check bronchoscopy specimens 2. Follow-up chest x-ray 3. Weaning protocol.
--- NOTE | 2017-01-10 08:53 | Pulmonology Progress Note ---
Pulmonary - PN: Subj Interval history: This 81-year-old black female who is seen in pulmonary consultation on my behalf by Dr. Lambert Quinonez. Patient was admitted to the hospital on 01/08/2017 after transfer from [facility]. Patient was thought to have aspirated from her PEG feedings. She had developed fever and chills. She required intubation in the emergency room. Her daughter said that she had a healing sacral decubitus ulcer and had been receiving wound care for this. Dr. Roosevelt Cespedes follows her decubitus ulcer. Patient was febrile. She had a sodium of 153. Creatinine was 2.9 with a BUN of 125. Lactic acid was elevated at 4.1. Troponins are 0.138. She was hypotensive with a blood pressure of 78/ 45. Heart rate was 108/min and temp was 102.4. On 01/08/2017 patient was evaluated by Dr. Quinonez with fiberoptic bronchoscopy. Great deal of material was removed. See his report. 01/09/2017 Bronchoscopy specimens are growing 2 different gram-positive cocci. Sputum is growing a gram-negative edwin and 2 different gram-positive cocci. Patient has MRSA in the nares. Urine cultures growing a gram-negative edwin. Chest x-ray. 01/09/2017. Cardiomegaly. Bibasilar atelectasis. His chest x- ray is markedly improved from one done 01/08/2017 which showed a significant right lower lung infiltrate. Lab. White count is 21,400. H&H is 8.4/29.8. Platelets are 163,000. Sodium is dropped to 150 with a potassium of 4.0. Creatinine has dropped from 2.50- 1.80 with a BUN of 76. Liver function tests are normal. Natruretic peptide is 183. Protein and albumin are low at 5.41.6 respectively. ABGs. Mechanical ventilation. FiO2 60%. PH is 7.348, PCO2 is 41.5, PO2 is 154.5. Bicarb is 22.3. Medicines. Agree with vancomycin. Pharmacology is managing this. I am changing the patient's Rocephin to Fortaz for better gram-negative edwin coverage. Patient will be started with a test dose. 01/10/2017. Patient was evaluated with fiberoptic bronchoscopy this morning. She still has significant retention of secretions in all 5 lobes of her lung. See bronchoscopy report. She has become afebrile and white blood cell count remains elevated 22,800. Chest x-ray shows a right lower lung infiltrate and bibasilar atelectasis. ABGs on FiO2 of 60% shows a pH 7.42, PCO2 37.4, PO2 179.1 and a bicarbonate 24. Electrolytes normal. Creatinine has gradually dropped from 2.50-1.40 with a BUN of 48. Total protein and albumin low at 5.51.5 respectively. H&H is 8.5/28.6 and platelets are 183,000. This patient is beginning to wake up a little bit but she cannot follow instructions. She has a long ways to go. Bronchial washings are growing gram-positive cocci ID is pending. Sputum collections are growing gram-positive cocci and gram-negative rods. Urine from 01/08/2017 is growing gram-negative rods. No IDs and sensitivities have been reported Physical exam. Vital signs. See below. Afebrile. Face is symmetrical. Lips appear to be normal. The tongue is very large and may be swollen. Neurologic. Patient is sedated. Staff says the patient is beginning to wake up but will not follow commands Neck. Symmetrical. No meningismus Lymphatics. No submandibular cervical or supraclavicular adenopathy. Chest. Significant large airway congestion Heart. No gallop Abdomen. Nondistended. Few bowel sounds are heard Extremities. No evidence of deep venous thrombophlebitis The remainder the physical exam is noncontributory. Plan. 01/09/2007 1. Check bronchoscopy specimens 2. We will repeat fiberoptic bronchoscopy in the morning. 3. Mechanical ventilation weaning protocol including physical therapy protocol 4. Change Rocephin to Fortaz. Begin with test dose. Note allergy to penicillin. 5. Large tongue. Watch. 01/10/2017. 1. See my note above for today. 2. Fiberoptic bronchoscopy done 01/10/2017. See report 3. Weaning protocol and physical therapy protocol 4. Decrease FiO2 to 59 per Exam (Progress Note) - Constitutional Vitals: Period Temp Pulse Resp BP Sys/Quezada Pulse Ox Last 24 Hr 97.8 F-99.1 F 59-74 12-25 64-142/37-87 99-100 Results - Labs CBC & BMP: 01/10/17 04:00 01/10/17 04:00
[2017-01-10] MEDS: MUPIROCIN 2% OINT 22 GM TUBE TOP SCH ×2 (10:22→20:07)
[2017-01-10] MEDS: INSULIN GLARGINE 100 UNIT/ML SUBCUT SCH (10:23)
[2017-01-10] MEDS: ENOXAPARIN 30 MG/0.3 ML SYRINGE SUBCUT SCH (10:24)
--- NOTE | 2017-01-10 10:24 | Hospitalist Progress Note ---
Assessment and Plan (1) Aspiration pneumonia Status: Acute Assessment and plan: The patient is receiving treatment for aspiration pneumonia via supportive ventilation and IV antibiotics. I anticipate improvement of lung function within the next couple of days and hope that she will be able to wean from ventilator by the end of the week. We will recheck electrolytes and ABG as well as chest x-ray in the morning. Current Visit: Yes Qualifiers: Aspiration pneumonia type: due to gastric secretions Laterality: right Lung location: lower lobe of lung Qualified Code(s): J69.0 - Pneumonitis due to inhalation of food and vomit (2) COPD (chronic obstructive pulmonary disease) Status: Chronic Current Visit: No Qualifiers: COPD type: chronic bronchitis Chronic bronchitis type: simple Qualified Code(s): J41.0 - Simple chronic bronchitis (3) History of breast cancer Status: Chronic Current Visit: No (4) Chronic renal insufficiency Status: Acute Current Visit: Yes Hospitalist: Subjective Interval history: Mrs. Oconnell continues therapy for aspiration pneumonia. The patient had therapeutic bronchoscopy for the second time this morning. Dr. Quiros and I coordinate care during the bronchoscopy and I observed the patient's whitish colored mucus being aspirated from the airways. Gastric colored secretions seen on last examination were no longer present. The patient remains intubated and on mechanical ventilation. Oxygen exchange is improving. Exam - Constitutional Vitals: Period Temp Pulse Resp BP Sys/Quezada Pulse Ox Last 24 Hr 97.8 F-99.1 F 59-74 12-25 64-142/37-79 99-100 Exam: Constitutional System: Minimal distress. No tremulousness. The patient is sedated Head: Normocephalic, atraumatic. Ears, Nose and Throat System: No evidence of Otitis or Mastoiditis. No epistaxis or discharge Eyes System: Pupils equal, round, and reactive. Neck: Supple, without adenopathy, No jugular venous distention. No thyromegaly , neck mass, or prior surgery apparent. Respiratory System: Chest rhonchi worse on the right to auscultation. Cardiovascular System: Heart with regular rate and rhythm. No murmur. GI System: Abdomen soft, nontender. Normo active bowel sounds present. Musculoskeletal System: limbs with 1+ pedal edema. Full distal pulses. Neurological System: Not testable due to sedation Results - Labs CBC & BMP: 01/10/17 04:00 01/10/17 04:00 Lab Results: I have reviewed the past 24 hour labs
[2017-01-10] MEDS: CLOPIDOGREL 75 MG TABLET PO SCH (10:25)
[2017-01-10] MEDS: PANTOPRAZOLE 40 MG VIAL IV SCH (10:26)
[2017-01-10] MEDS: SODIUM CHLORIDE 23.4% CONC INJ 38.5 MEQ, SODIUM BICARB INJ 50 MEQ in STERILE WATER INJ ... IV SCH (12:10)
[2017-01-10] MEDS: cefTAZidime 500 MG in SODIUM CHLORIDE 0.9% 100 ML IV SCH (12:20)
[2017-01-10] MEDS: PROPOFOL 1,000 MG/100 ML BOTTLE IV SCH (17:20)
[2017-01-11] MEDS: cefTAZidime 500 MG in SODIUM CHLORIDE 0.9% 100 ML IV SCH ×2 (00:14→12:04)
[2017-01-11] MEDS: INSULIN LISPRO 100 UNIT/ML SUBCUT SCH ×4 (00:14→17:44)
[2017-01-11] MEDS: SODIUM CHLORIDE 23.4% CONC INJ 38.5 MEQ, SODIUM BICARB INJ 50 MEQ in STERILE WATER INJ ... IV SCH ×2 (00:14→06:26)
[2017-01-11] MEDS: METOCLOPRAMIDE 10 MG TABLET PO SCH ×4 (00:15→18:42)
[2017-01-11] MEDS: ALBUTEROL/IPRATROPIUM 3 ML NEB RESP TX SCH ×4 (00:48→18:51)
[2017-01-11 04:59] LABS: Basophils # 0.1 10*3/uL (0.0-0.2); Basophils % 0.2 % (0.0-0.8); Eosinophils # 0.3 10*3/uL (0.0-0.87); Eosinophils % 1.2 % (0.00-10.9); Hematocrit 27.4 VOL% (35.7-47.0); Hemoglobin 8.2 GM/DL (12.0-16.0); Immature Granulocytes % 1.3 %; Immature Granulocytes Absolute 0.28 #; Lymphocytes # 1.8 10*3/uL (1.4-4.0); Lymphocytes % 8.1 % (21.3-54.2); Mean Corpuscular HGB Conc 29.9 GM/DL (32-36); Mean Corpuscular Hemoglobin 28 PG (27-34); Mean Corpuscular Volume 93.8 FL (87-102); Monocytes # 1.5 10*3/uL (0.11-0.8); Monocytes % 7.1 % (1.7-12.7); NRBC # 0.02 10*3/uL; Neutrophils # 17.7 10*3/uL (1.4-7.4); Neutrophils % 82.1 % (38.7-73.9); Platelet Count 169 T/CUMM (130-400); Red Blood Count 2.92 MC/CUMM (3.8-5.5); Red Cell Distribution Width 17.1 % (9.3-17.3); White Blood Count 21.6 T/CUMM (4-12)
[2017-01-11 04:59] LABS: ABG Base Excess 2.1 MMOL/L (-2.5-2.5); ABG HCO3 26.3 MMOL/L (20-26); ABG Oxygen Saturation 99.7 % (95-100); ABG PCO2 35.1 MM HG (35-48); ABG PH 7.471 (7.35-7.45); ABG TCO2 23.7 MMOL/L (23-27); Allen Test Positive; Pt O2 Delivery Device Ventilator
[2017-01-11] MEDS: PROPOFOL 1,000 MG/100 ML BOTTLE IV SCH ×3 (05:09→18:35)
[2017-01-11] MEDS: VANCOMYCIN INJ 1,250 MG in SODIUM CHLORIDE 0.9% 250 ML IV SCH (05:10)
[2017-01-11 05:29] LABS: Albumin 1.4 G/DL (3.4-5.0); Bilirubin,Total 0.4 MG/DL (0.2-1.0); Calcium 8.7 MG/DL (8.5-10.1); Osmolality,Calculated 298.7 MOS/KG (273-304); Potassium 3.8 MMOL/L (3.5-5.1); Total Protein 5.6 G/DL (6.4-8.3)
[2017-01-11 05:30] LABS: Band Neutrophils 2 % (0-10); Lymphocytes 6 % (20-55); Segmented Neutrophils 86 % (50-85); Total Cells Counted 100
[2017-01-11 05:31] LABS: Giant Platelets Few; Hypochromasia 1+; Ovalocytes Slight; Platelet Estimate Normal
[2017-01-11 05:34] LABS: Microcytosis 1+
[2017-01-11 05:43] LABS: Calcium 8.8 MG/DL (8.5-10.1); Magnesium 2.3 MG/DL (1.8-2.4); Osmolality,Calculated 298.7 MOS/KG (273-304); Potassium 3.8 MMOL/L (3.5-5.1)
[2017-01-11] MEDS: NOREPINEPHRINE 8 MG in SODIUM CHLORIDE 0.9% 242 ML IV SCH (06:26)
[2017-01-11] MEDS: INSULIN GLARGINE 100 UNIT/ML SUBCUT SCH (08:31)
[2017-01-11] MEDS: PANTOPRAZOLE 40 MG VIAL IV SCH (08:32)
[2017-01-11] MEDS: CLOPIDOGREL 75 MG TABLET PO SCH (08:32)
[2017-01-11] MEDS: ENOXAPARIN 30 MG/0.3 ML SYRINGE SUBCUT SCH (08:32)
[2017-01-11] MEDS: MUPIROCIN 2% OINT 22 GM TUBE TOP SCH ×2 (08:33→21:10)
--- NOTE | 2017-01-11 08:44 | XRay Report ---
XR chest 1V portable Indication: Hypoxemia Comparison: 10 January 2017 Findings: The heart and mediastinum are stable in size and configuration. Pacemaker device is unchanged in position. Lines and tubes are unchanged in position. The pulmonary vascularity is increased with bilateral increased interstitial lung density slightly increased from previous. No other lung infiltrates, effusions, pneumothorax or other abnormality is demonstrated. Impression: Findings suggest slightly increasing cardiac decompensation. PROCEDURE INTERPRETED AT [facility] DEPARTMENT OF RADIOLOGY Final Report Signed by: Dr. Don Wesley
--- NOTE | 2017-01-11 09:49 | Hospitalist Progress Note ---
Assessment and Plan (1) Aspiration pneumonia Status: Acute Assessment and plan: The patient is receiving treatment for aspiration pneumonia via supportive ventilation and IV antibiotics. I anticipate improvement of lung function within the next couple of days and hope that she will be able to wean from ventilator by the end of the week. We will recheck electrolytes and ABG and electrolytes tomorrow. I am going to reduce IV fluids as the radiologist mentions pulmonary edema increasing on chest x-ray today. Current Visit: Yes Qualifiers: Aspiration pneumonia type: due to gastric secretions Laterality: right Lung location: lower lobe of lung Qualified Code(s): J69.0 - Pneumonitis due to inhalation of food and vomit (2) COPD (chronic obstructive pulmonary disease) Status: Chronic Current Visit: No Qualifiers: COPD type: chronic bronchitis Chronic bronchitis type: simple Qualified Code(s): J41.0 - Simple chronic bronchitis (3) History of breast cancer Status: Chronic Current Visit: No (4) Chronic renal insufficiency Status: Acute Current Visit: Yes Hospitalist: Subjective Interval history: The patient remains on the mechanical ventilator. She is tolerating tube feedings. She has reduced sputum production today. Exam - Constitutional Vitals: Period Temp Pulse Resp BP Sys/Quezada Pulse Ox Last 24 Hr 97.2 F-98.9 F 59-76 12-35 82-140/33-84 96-100 Exam: Constitutional System: Minimal distress. No tremulousness. The patient is sedated Head: Normocephalic, atraumatic. Ears, Nose and Throat System: No evidence of Otitis or Mastoiditis. No epistaxis or discharge Eyes System: Pupils equal, round, and reactive. Neck: Supple, without adenopathy, No jugular venous distention. No thyromegaly , neck mass, or prior surgery apparent. Respiratory System: Chest rhonchi worse on the right to auscultation. Cardiovascular System: Heart with regular rate and rhythm. No murmur. GI System: Abdomen soft, nontender. Normo active bowel sounds present. Musculoskeletal System: limbs with 1+ pedal edema. Full distal pulses. Neurological System: Not testable due to sedation Results - Labs CBC & BMP: 01/11/17 04:15 01/11/17 04:15 Lab Results: I have reviewed the past 24 hour labs
[2017-01-11] MEDS ORDERED: FUROSEMIDE 40 MG/4 ML VIAL IM ONE (09:52)
--- NOTE | 2017-01-11 09:54 | Pulmonology Progress Note ---
Pulmonary - PN: Subj Interval history: This 81-year-old black female who is seen in pulmonary consultation on my behalf by Dr. Lambert Quinonez. Patient was admitted to the hospital on 01/08/2017 after transfer from [facility]. Patient was thought to have aspirated from her PEG feedings. She had developed fever and chills. She required intubation in the emergency room. Her daughter said that she had a healing sacral decubitus ulcer and had been receiving wound care for this. Dr. Roosevelt Cespedes follows her decubitus ulcer. Patient was febrile. She had a sodium of 153. Creatinine was 2.9 with a BUN of 125. Lactic acid was elevated at 4.1. Troponins are 0.138. She was hypotensive with a blood pressure of 78/ 45. Heart rate was 108/min and temp was 102.4. On 01/08/2017 patient was evaluated by Dr. Quinonez with fiberoptic bronchoscopy. Great deal of material was removed. See his report. 01/09/2017 Bronchoscopy specimens are growing 2 different gram-positive cocci. Sputum is growing a gram-negative edwin and 2 different gram-positive cocci. Patient has MRSA in the nares. Urine cultures growing a gram-negative edwin. Chest x-ray. 01/09/2017. Cardiomegaly. Bibasilar atelectasis. His chest x- ray is markedly improved from one done 01/08/2017 which showed a significant right lower lung infiltrate. Lab. White count is 21,400. H&H is 8.4/29.8. Platelets are 163,000. Sodium is dropped to 150 with a potassium of 4.0. Creatinine has dropped from 2.50- 1.80 with a BUN of 76. Liver function tests are normal. Natruretic peptide is 183. Protein and albumin are low at 5.41.6 respectively. ABGs. Mechanical ventilation. FiO2 60%. PH is 7.348, PCO2 is 41.5, PO2 is 154.5. Bicarb is 22.3. Medicines. Agree with vancomycin. Pharmacology is managing this. I am changing the patient's Rocephin to Fortaz for better gram-negative edwin coverage. Patient will be started with a test dose. 01/10/2017. Patient was evaluated with fiberoptic bronchoscopy this morning. She still has significant retention of secretions in all 5 lobes of her lung. See bronchoscopy report. She has become afebrile and white blood cell count remains elevated 22,800. Chest x-ray shows a right lower lung infiltrate and bibasilar atelectasis. ABGs on FiO2 of 60% shows a pH 7.42, PCO2 37.4, PO2 179.1 and a bicarbonate 24. Electrolytes normal. Creatinine has gradually dropped from 2.50-1.40 with a BUN of 48. Total protein and albumin low at 5.51.5 respectively. H&H is 8.5/28.6 and platelets are 183,000. This patient is beginning to wake up a little bit but she cannot follow instructions. She has a long ways to go. Bronchial washings are growing gram-positive cocci ID is pending. Sputum collections are growing gram-positive cocci and gram-negative rods. Urine from 01/08/2017 is growing gram-negative rods. No IDs and sensitivities have been reported. 01/11/2017. Today's chest x-ray shows cardiomegaly. There are increased markings in both perihilar areas. Natruretic peptide is increased from 183- 534. I think the patient has a mild element of congestive heart failure and I am going to give her IV push Lasix. Electrolytes normal. Creatinine has gradually dropped from 2.50-1.20 with a BUN of 35. White count remains elevated at 21,600 H&H remains low at 8.2/27.9. Patient is advancing to stage II of the weaning protocol. Lab chest x-ray and ABGs have been ordered for tomorrow morning. Today's ABGs on mechanical ventilation and FiO2 of 59% shows a pH 7.47, PCO2 of 35.1. PaO2 is increased to 236 and bicarb is 26.3. This represents an improvement. Physical exam. Vital signs. See below. Afebrile. Face is symmetrical. Lips appear to be normal. The tongue is very large and may be swollen. Neurologic. Patient is sedated. Staff says the patient is beginning to wake up but will not follow commands Neck. Symmetrical. No meningismus Lymphatics. No submandibular cervical or supraclavicular adenopathy. Chest. Significant large airway congestion Heart. No gallop Abdomen. Nondistended. Few bowel sounds are heard Extremities. No evidence of deep venous thrombophlebitis The remainder the physical exam is noncontributory. Plan. 01/09/2007 1. Check bronchoscopy specimens 2. We will repeat fiberoptic bronchoscopy in the morning. 3. Mechanical ventilation weaning protocol including physical therapy protocol 4. Change Rocephin to Fortaz. Begin with test dose. Note allergy to penicillin. 5. Large tongue. Watch. 01/10/2017. 1. See my note above for today. 2. Fiberoptic bronchoscopy done 01/10/2017. See report 3. Weaning protocol and physical therapy protocol 4. Decrease FiO2 to 59 per 01/11/2017. 1. See today's note. Above. 2. Lasix 40 IV push now 3. Follow-up chest x-ray ABGs and lab 4. Stage II to weaning protocol. Exam (Progress Note) - Constitutional Vitals: Period Temp Pulse Resp BP Sys/Quezada Pulse Ox Last 24 Hr 97.2 F-98.9 F 59-76 12-35 82-140/33-84 96-100 Results - Labs CBC & BMP: 01/11/17 04:15 01/11/17 04:15
[2017-01-11] MEDS ORDERED: FUROSEMIDE 40 MG/4 ML VIAL IV ONE (10:12)
[2017-01-11] MEDS: DESITIN 4OZ/NYSTATIN 15 GRAM MIXTURE PASTE TOP SCH ×2 (18:38→21:10)
[2017-01-12] MEDS: INSULIN LISPRO 100 UNIT/ML SUBCUT SCH ×4 (00:26→18:13)
[2017-01-12] MEDS: cefTAZidime 500 MG in SODIUM CHLORIDE 0.9% 100 ML IV SCH ×2 (00:27→13:27)
[2017-01-12] MEDS: ALBUTEROL/IPRATROPIUM 3 ML NEB RESP TX SCH ×4 (00:57→19:10)
[2017-01-12] MEDS: METOCLOPRAMIDE 10 MG TABLET PO SCH ×4 (01:49→18:14)
[2017-01-12 03:23] LABS: ABG Base Excess 4.5 MMOL/L (-2.5-2.5); ABG HCO3 27.9 MMOL/L (20-26); ABG Oxygen Saturation 99.1 % (95-100); ABG PCO2 36.3 MM HG (35-48); ABG PH 7.503 (7.35-7.45); ABG PO2 225.6 MM HG (80-95); Allen Test Positive; Pt O2 Delivery Device Ventilator
[2017-01-12 05:58] LABS: Basophils % 0.2 % (0.0-0.8); Eosinophils # 0.3 10*3/uL (0.0-0.87); Eosinophils % 1.7 % (0.00-10.9); Hematocrit 26.7 VOL% (35.7-47.0); Hemoglobin 8.1 GM/DL (12.0-16.0); Immature Granulocytes % 1.1 %; Immature Granulocytes Absolute 0.22 #; Lymphocytes # 2.5 10*3/uL (1.4-4.0); Lymphocytes % 12.7 % (21.3-54.2); Mean Corpuscular HGB Conc 30.3 GM/DL (32-36); Mean Corpuscular Hemoglobin 29 PG (27-34); Mean Corpuscular Volume 94.7 FL (87-102); Mean Platelet Volume 13.1 FL (9.6-12.0); Monocytes # 2.8 10*3/uL (0.11-0.8); Monocytes % 14.3 % (1.7-12.7); Neutrophils # 13.6 10*3/uL (1.4-7.4); Platelet Count 168 T/CUMM (130-400); Red Blood Count 2.82 MC/CUMM (3.8-5.5); Red Cell Distribution Width 17.1 % (9.3-17.3); White Blood Count 19.4 T/CUMM (4-12)
[2017-01-12] MEDS: PROPOFOL 1,000 MG/100 ML BOTTLE IV SCH ×2 (06:34→21:51)
[2017-01-12 06:37] LABS: Eosinophils 1 % (0-10); Hypochromasia 1+; Lymphocytes 16 % (20-55); Platelet Estimate Normal; Segmented Neutrophils 73 % (50-85); Total Cells Counted 100
[2017-01-12] MEDS: VANCOMYCIN INJ 1,250 MG in SODIUM CHLORIDE 0.9% 250 ML IV SCH (06:37)
[2017-01-12 06:38] LABS: Giant Platelets Few; Microcytosis 1+
[2017-01-12 06:43] LABS: Albumin 1.4 G/DL (3.4-5.0); Bilirubin,Total 1.1 MG/DL (0.2-1.0); Magnesium 2.2 MG/DL (1.8-2.4); Osmolality,Calculated 298.6 MOS/KG (273-304); Potassium 3.5 MMOL/L (3.5-5.1); Total Protein 5.5 G/DL (6.4-8.3)
[2017-01-12] MEDS: NOREPINEPHRINE 8 MG in SODIUM CHLORIDE 0.9% 242 ML IV SCH (07:00)
--- NOTE | 2017-01-12 07:10 | XRay Report ---
Exam: XR chest 1V portable Date: 01/12/2017 4:00 AM Indication: Follow-up ventilator respiratory failure Comparison: None Technical: AP Findings: Endotracheal tube is at the level of the mid clavicle. A right-sided cardiac pacing device with a right ventricular lead present. Patchy infiltrates present in the right base and bilateral perihilar regions. No obvious effusions. Lateral marginal osteophytes are present. No pneumothorax present. Arthritic change present over the shoulders bilaterally. The heart is mildly enlarged with ASVD present. Impression: 1. Stable appearance of the endotracheal tube and a cardiac pacing device 2. Persistent bilateral perihilar and right basilar pneumonic infiltrates. PROCEDURE INTERPRETED AT [facility] DEPARTMENT OF RADIOLOGY Final Report Signed by: Dr. Sourav Rockwell
[2017-01-12] MEDS: CLOPIDOGREL 75 MG TABLET PO SCH (08:55)
[2017-01-12] MEDS: ENOXAPARIN 40 MG/0.4 ML SYRINGE SUBCUT SCH (08:55)
[2017-01-12] MEDS: DESITIN 4OZ/NYSTATIN 15 GRAM MIXTURE PASTE TOP SCH ×2 (08:55→21:30)
[2017-01-12] MEDS: MUPIROCIN 2% OINT 22 GM TUBE TOP SCH ×2 (08:55→21:30)
[2017-01-12] MEDS: PANTOPRAZOLE 40 MG VIAL IV SCH (08:56)
[2017-01-12] MEDS: INSULIN GLARGINE 100 UNIT/ML SUBCUT SCH (08:56)
[2017-01-12] MEDS ORDERED: FUROSEMIDE 40 MG/4 ML VIAL IV ONE (09:31)
[2017-01-12] MEDS ORDERED: POTASSIUM CHLORIDE RIDER 10 MEQ in PREMIX 1 EACH IV PRN (09:32)
--- NOTE | 2017-01-12 10:56 | Pulmonology Progress Note ---
Pulmonary - PN: Subj Interval history: Ismael Duenas, [facility] acting as scribe for Dr. Sourav Slade This 81-year-old black female who is seen in pulmonary consultation on our behalf by Dr. Lambert Quinonez. Patient was admitted to the hospital on 01/08/2017 after transfer from [facility]. Patient was thought to have aspirated from her PEG feedings. She had developed fever and chills. She required intubation in the emergency room. Her daughter said that she had a healing sacral decubitus ulcer and had been receiving wound care for this. Dr. Roosevelt Cespedes follows her decubitus ulcer. Patient was febrile. She had a sodium of 153. Creatinine was 2.9 with a BUN of 125. Lactic acid was elevated at 4.1. Troponins are 0.138. She was hypotensive with a blood pressure of 78/ 45. Heart rate was 108/min and temp was 102.4. On 01/08/2017 patient was evaluated by Dr. Quinonez with fiberoptic bronchoscopy. Great deal of material was removed. See his report. 01/09/2017. Bronchoscopy specimens are growing 2 different gram-positive cocci. Sputum is growing a gram-negative edwin and 2 different gram-positive cocci. Patient has MRSA in the nares. Urine cultures growing a gram-negative edwin. Chest x-ray. 01/09/2017. Cardiomegaly. Bibasilar atelectasis. His chest x- ray is markedly improved from one done 01/08/2017 which showed a significant right lower lung infiltrate. Lab. White count is 21,400. H&H is 8.4/29.8. Platelets are 163,000. Sodium is dropped to 150 with a potassium of 4.0. Creatinine has dropped from 2.50- 1.80 with a BUN of 76. Liver function tests are normal. Natruretic peptide is 183. Protein and albumin are low at 5.41.6 respectively. ABGs. Mechanical ventilation. FiO2 60%. PH is 7.348, PCO2 is 41.5, PO2 is 154.5. Bicarb is 22.3. Medicines. Agree with vancomycin. Pharmacology is managing this. I am changing the patient's Rocephin to Fortaz for better gram-negative edwin coverage. Patient will be started with a test dose. 01/10/2017. Patient was evaluated with fiberoptic bronchoscopy this morning. She still has significant retention of secretions in all 5 lobes of her lung. See bronchoscopy report. She has become afebrile and white blood cell count remains elevated 22,800. Chest x-ray shows a right lower lung infiltrate and bibasilar atelectasis. ABGs on FiO2 of 60% shows a pH 7.42, PCO2 37.4, PO2 179.1 and a bicarbonate 24. Electrolytes normal. Creatinine has gradually dropped from 2.50-1.40 with a BUN of 48. Total protein and albumin low at 5.51.5 respectively. H&H is 8.5/28.6 and platelets are 183,000. This patient is beginning to wake up a little bit but she cannot follow instructions. She has a long ways to go. Bronchial washings are growing gram-positive cocci ID is pending. Sputum collections are growing gram-positive cocci and gram-negative rods. Urine from 01/08/2017 is growing gram-negative rods. No IDs and sensitivities have been reported. 01/11/2017. Today's chest x-ray shows cardiomegaly. There are increased markings in both perihilar areas. Natruretic peptide is increased from 183- 534. I think the patient has a mild element of congestive heart failure and I am going to give her IV push Lasix. Electrolytes normal. Creatinine has gradually dropped from 2.50-1.20 with a BUN of 35. White count remains elevated at 21,600 H&H remains low at 8.2/27.9. Patient is advancing to stage II of the weaning protocol. Lab chest x-ray and ABGs have been ordered for tomorrow morning. Today's ABGs on mechanical ventilation and FiO2 of 59% shows a pH 7.47, PCO2 of 35.1. PaO2 is increased to 236 and bicarb is 26.3. This represents an improvement. 01/12/2017. The patient was seen today along with her nurse. She remains on the ventilator and we are advancing with the weaning protocol as tolerated. Yesterday, patient did not do well with her CPAP trials. Chest x-ray today continues to show increased markings in both perihilar areas with cardiomegaly. BNP filled to 385 with diuresis. Will give another one-time dose of Lasix 40 mg IV now and then start Lasix 20 mg every 8 hours. Her last echocardiogram in August 2016 showed an estimated EF of 35-40%, mild mitral regurgitation, and suggested pulmonary artery pressure 46 mmHg. Will repeat echo today. Microbiology has been reviewed. Patient has various organisms growing. Urine culture grew Proteus mirabilis. Sputum culture obtained 01/08/2017 grew Proteus mirabilis, MRSA, strep agalactiae group B, Acinetobacter baumannii/hemolyticus, and Klebsiella pneumoniae. Bronchoscopy washings from 01/08/2017 grew MRSA, strep agalactiae group B, and Proteus mirabilis. Bronchoscopy lavage from 2016 is growing gram-positive cocci, gram-positive cocci #2, and microscopic plus panel 1. She is presently on Fortaz and vancomycin according to the sensitivities that have been provided. These can be adjusted if any new information becomes available. Note, pharmacology is managing the patient's vancomycin. Medications have been reviewed. Lasix as above. Labs been reviewed. White count is 19,400 with 70.0% segs, 12.7% lymphs, 14.8% monos; H&H 8.1/26.7; platelet count 168,000; creatinine improved to 1.20, BUN 33 , sodium 146, potassium 3.5, magnesium 2.2; total bilirubin 1.10, AST 26, ALT 15 , alkaline phosphatase 137; BNP 385; calcium 9.0, albumin 1.4, total protein 5.5 ; vancomycin trough 21.5. ABGs this morning on mechanical ventilation with an FiO2 of 59% show pH of 7.503 , PCO2 36.3, PO2 225.6, bicarb 27.9, and oxygen saturation 99.1% Exam (Progress Note) - Constitutional Vitals: Period Temp Pulse Resp BP Sys/Quezada Pulse Ox Last 24 Hr 98.0 F-99.3 F 63-83 12-25 77-147/30-65 99-100 Exam: Chest with large airway congestion Heart no gallop Abdomen is nondistended with rare bowel sounds Extremities with nothing to suggest acute deep venous thrombophlebitis Psychiatric/neurologic unchanged Plan: Continue ventilator weaning protocol and advance as tolerated. Daily chest x-ray and ABGs while on the ventilator. Echocardiogram. Lasix 40 mg IV 1 now then start Lasix 20 mg IV every 8 hours. Follow-up repeat bronchoscopy cultures when available. See orders. Results - Labs CBC & BMP: 01/12/17 04:25 01/12/17 04:25
[2017-01-12] MEDS: FUROSEMIDE 20 MG/2 ML VIAL IV SCH ×2 (13:27→21:54)
--- NOTE | 2017-01-12 13:44 | ECHO Report ---
Ritika Oconnell Exam Date: 01/12/2017 10:59 Referring Physician: Technologist: chandni Whiteside ARDMS, RVT Age: 81 Ht (in): 65 Wt (lb): 160 Gender: F Exam Location: [facility] Echo Indications: CHF, Aspiration pneumonia, Acute respiratory failure BP: 121 / 51 HR: 68 Rhythm: Sinus Technical Quality: IMPRESSIONS Technically difficult study Normal chamber sizes 1-2+ concentric LVH Probably mild to moderately reduced LV systolic function with ejection fraction estimated to be 35-40% Mitral annular calcification without mitral regurgitation Aortic sclerosis without stenosis 1-2+ tricuspid regurgitation with RVSP 32 mmHg plus RAP Probable pacing wire in the right heart is noted MEASUREMENTS (Male / Female) Normal Values 2D ECHO LV Diastolic Diameter PLAX 4.3 cm 4.2 - 5.9 / 3.9 - 5.3 cm LV Systolic Diameter PLAX 3.5 cm LV Fractional Shortening PLAX 16.9 % IVS Diastolic Thickness 1.5 cm 0.6 - 1.0 / 0.6 - 0.9 cm LVPW Diastolic Thickness 1.1 cm 0.6 - 1.0 / 0.6 - 0.9 cm RV Internal Dim ED PLAX 3.2 cm Aortic Root Diameter 3.1 cm LA Systolic Diameter LX 3.6 cm 3.0 - 4.0 / 2.7 - 3.8 cm DOPPLER TR Peak Velocity 282.0 cm/s TR Peak Gradient 31.8 mmHg FINDINGS Left Ventricle Normal left ventricular cavity size. Mild left ventricular hypertrophy. Left ventricular ejection fraction is estimated at Right Ventricle The right ventricle is normal in size and function. Right Atrium The right atrium is normal in size. Left Atrium The left atrium is normal in size. Mitral Valve Morphologically normal mitral valve. Mild mitral annular calcification. Trace mitral valve regurgitation. Aortic Valve Morphologically normal aortic valve without significant sclerosis or stenosis. There is no aortic regurgitation. Tricuspid Valve Thickened tricuspid valve. Mild tricuspid valve regurgitation. Tricuspid regurgitation velocities suggest a PAP of 42 mmHg. Pulmonic Valve Morphologically normal pulmonic valve without significant stenosis. There is no pulmonic regurgitation. Pericardium Normal pericardium without effusion. Aorta Normal ascending aorta dimension. Gato Mcgill (Electronically Signed) Final Date: 12 January 2017 13:43
--- NOTE | 2017-01-12 13:47 | Hospitalist Progress Note ---
Assessment and Plan (1) Aspiration pneumonia Status: Acute Assessment and plan: The patient is receiving treatment for aspiration pneumonia via supportive ventilation and IV antibiotics. The patient has further evidence of hypovolemia on chest x-ray today. Dr. Quiros has ordered diuretic to reduce lung water and we will continue attempts to wean per weaning trial. The patient is now on vancomycin and ceftazidime for anti-infective regimen. Current Visit: Yes Qualifiers: Aspiration pneumonia type: due to gastric secretions Laterality: right Lung location: lower lobe of lung Qualified Code(s): J69.0 - Pneumonitis due to inhalation of food and vomit (2) COPD (chronic obstructive pulmonary disease) Status: Chronic Current Visit: No Qualifiers: COPD type: chronic bronchitis Chronic bronchitis type: simple Qualified Code(s): J41.0 - Simple chronic bronchitis (3) History of breast cancer Status: Chronic Current Visit: No (4) Chronic renal insufficiency Status: Acute Current Visit: Yes Hospitalist: Subjective Interval history: Ms. Oconnell continues treatment for aspiration pneumonia. The patient did not do well with CPAP trials yesterday and weaning is very slow. Exam - Constitutional Vitals: Period Temp Pulse Resp BP Sys/Quezada Pulse Ox Last 24 Hr 98.0 F-99.2 F 63-77 12- 77-147/30- 99-100 Exam: Constitutional System: Minimal distress. No tremulousness. The patient is sedated Head: Normocephalic, atraumatic. Ears, Nose and Throat System: No evidence of Otitis or Mastoiditis. No epistaxis or discharge Eyes System: Pupils equal, round, and reactive. Neck: Supple, without adenopathy, No jugular venous distention. No thyromegaly , neck mass, or prior surgery apparent. Respiratory System: Chest rhonchi worse on the right to auscultation. Cardiovascular System: Heart with regular rate and rhythm. No murmur. GI System: Abdomen soft, nontender. Normo active bowel sounds present. Musculoskeletal System: limbs with 1+ pedal edema. Full distal pulses. Neurological System: Not testable due to sedation Results - Labs CBC & BMP: 01/12/17 04:25 01/12/17 04:25 Lab Results: I have reviewed the past 24 hour labs
[2017-01-13] MEDS: cefTAZidime 500 MG in SODIUM CHLORIDE 0.9% 100 ML IV SCH ×2 (00:26→11:38)
[2017-01-13] MEDS: INSULIN LISPRO 100 UNIT/ML SUBCUT SCH ×4 (00:45→18:33)
[2017-01-13] MEDS: ALBUTEROL/IPRATROPIUM 3 ML NEB RESP TX SCH ×5 (01:18→19:52)
[2017-01-13 02:42] LABS: ABG Base Excess 6.9 MMOL/L (-2.5-2.5); ABG HCO3 30.4 MMOL/L (20-26); ABG PCO2 38.5 MM HG (35-48); ABG PH 7.515 (7.35-7.45); ABG PO2 188.5 MM HG (80-95); ABG TCO2 31.6 MMOL/L (23-27); Allen Test Positive; Pt O2 Delivery Device Ventilator
[2017-01-13] MEDS: METOCLOPRAMIDE 10 MG TABLET PO SCH ×4 (04:00→18:33)
[2017-01-13] MEDS: FUROSEMIDE 20 MG/2 ML VIAL IV SCH ×3 (05:55→22:21)
[2017-01-13 06:23] LABS: Basophils % 0.2 % (0.0-0.8); Mean Corpuscular HGB Conc 30.4 GM/DL (32-36)
[2017-01-13 06:30] LABS: Eosinophils # 0.4 10*3/uL (0.0-0.87); Eosinophils % 2.7 % (0.00-10.9); Immature Granulocytes % 1.8 %; Immature Granulocytes Absolute 0.24 #; Lymphocytes # 1.8 10*3/uL (1.4-4.0); Lymphocytes % 13.1 % (21.3-54.2); Mean Corpuscular Hemoglobin 28 PG (27-34); Mean Corpuscular Volume 92.7 FL (87-102); Mean Platelet Volume 12.4 FL (9.6-12.0); Monocytes # 2.2 10*3/uL (0.11-0.8); Monocytes % 16.5 % (1.7-12.7); Neutrophils # 8.8 10*3/uL (1.4-7.4); Neutrophils % 65.7 % (38.7-73.9); Platelet Count 172 T/CUMM (130-400); Red Blood Count 2.59 MC/CUMM (3.8-5.5); Red Cell Distribution Width 17.1 % (9.3-17.3)
[2017-01-13 06:37] LABS: White Blood Count 13.3 T/CUMM (4-12)
[2017-01-13 06:38] LABS: Hemoglobin 7.3 GM/DL (12.0-16.0)
[2017-01-13 06:50] LABS: Calcium 8.8 MG/DL (8.5-10.1); Magnesium 1.9 MG/DL (1.8-2.4); Osmolality,Calculated 299.7 MOS/KG (273-304); Potassium 3.3 MMOL/L (3.5-5.1)
[2017-01-13 07:25] LABS: Total Cells Counted 100
[2017-01-13 07:26] LABS: Hypochromasia 1+; Microcytosis 1+; Platelet Estimate Adequate
[2017-01-13 07:27] LABS: Band Neutrophils 3 % (0-10); Eosinophils 2 % (0-10); Lymphocytes 11 % (20-55); Nucleated Red Blood Cells 1 (0-5); Segmented Neutrophils 68 % (50-85)
[2017-01-13] MEDS: NOREPINEPHRINE 8 MG in SODIUM CHLORIDE 0.9% 242 ML IV SCH (07:29)
[2017-01-13] MEDS: VANCOMYCIN INJ 1,000 MG in SODIUM CHLORIDE 0.9% 250 ML IV SCH (07:32)
--- NOTE | 2017-01-13 07:34 | XRay Report ---
XR chest 1V portable Indication: Ventilator patient Comparison: 12 January 2017 Findings: The heart and mediastinum are stable in size and configuration. Pacemaker device is unchanged in position. Endotracheal tube is unchanged in position. The pulmonary vascularity is increased with bilateral increased interstitial lung density similar to previous. No other lung infiltrates, effusions, pneumothorax or other abnormality is demonstrated. Impression: Findings suggest cardiac decompensation similar to previous. PROCEDURE INTERPRETED AT [facility] DEPARTMENT OF RADIOLOGY Final Report Signed by: Dr. Don Wesley
[2017-01-13] MEDS: POTASSIUM CHLORIDE RIDER 20 MEQ in PREMIX 1 EACH IV PRN ×2 (09:06→11:38)
[2017-01-13] MEDS: PANTOPRAZOLE 40 MG VIAL IV SCH (09:12)
[2017-01-13] MEDS: ENOXAPARIN 40 MG/0.4 ML SYRINGE SUBCUT SCH (09:18)
[2017-01-13] MEDS: INSULIN GLARGINE 100 UNIT/ML SUBCUT SCH (09:20)
[2017-01-13] MEDS: MUPIROCIN 2% OINT 22 GM TUBE TOP SCH ×2 (09:21→21:13)
[2017-01-13] MEDS: CLOPIDOGREL 75 MG TABLET PO SCH (09:23)
[2017-01-13] MEDS: DESITIN 4OZ/NYSTATIN 15 GRAM MIXTURE PASTE TOP SCH ×2 (09:24→21:13)
[2017-01-13] MEDS ORDERED: SODIUM CHLORIDE 0.9% 250 ML IV PRN (10:11)
--- NOTE | 2017-01-13 10:23 | Pulmonology Progress Note ---
Pulmonary - PN: Subj Interval history: This 81-year-old black female who is seen in pulmonary consultation on our behalf by Dr. Lambert Quinonez. Patient was admitted to the hospital on 01/08/2017 after transfer from [facility]. Patient was thought to have aspirated from her PEG feedings. She had developed fever and chills. She required intubation in the emergency room. Her daughter said that she had a healing sacral decubitus ulcer and had been receiving wound care for this. Dr. Roosevelt Cespedes follows her decubitus ulcer. Patient was febrile. She had a sodium of 153. Creatinine was 2.9 with a BUN of 125. Lactic acid was elevated at 4.1. Troponins are 0.138. She was hypotensive with a blood pressure of 78/ 45. Heart rate was 108/min and temp was 102.4. On 01/08/2017 patient was evaluated by Dr. Quinonez with fiberoptic bronchoscopy. Great deal of material was removed. See his report. 01/09/2017. Bronchoscopy specimens are growing 2 different gram-positive cocci. Sputum is growing a gram-negative edwin and 2 different gram-positive cocci. Patient has MRSA in the nares. Urine cultures growing a gram-negative edwin. Chest x-ray. 01/09/2017. Cardiomegaly. Bibasilar atelectasis. His chest x- ray is markedly improved from one done 01/08/2017 which showed a significant right lower lung infiltrate. Lab. White count is 21,400. H&H is 8.4/29.8. Platelets are 163,000. Sodium is dropped to 150 with a potassium of 4.0. Creatinine has dropped from 2.50- 1.80 with a BUN of 76. Liver function tests are normal. Natruretic peptide is 183. Protein and albumin are low at 5.41.6 respectively. ABGs. Mechanical ventilation. FiO2 60%. PH is 7.348, PCO2 is 41.5, PO2 is 154.5. Bicarb is 22.3. Medicines. Agree with vancomycin. Pharmacology is managing this. I am changing the patient's Rocephin to Fortaz for better gram-negative edwin coverage. Patient will be started with a test dose. 01/10/2017. Patient was evaluated with fiberoptic bronchoscopy this morning. She still has significant retention of secretions in all 5 lobes of her lung. See bronchoscopy report. She has become afebrile and white blood cell count remains elevated 22,800. Chest x-ray shows a right lower lung infiltrate and bibasilar atelectasis. ABGs on FiO2 of 60% shows a pH 7.42, PCO2 37.4, PO2 179.1 and a bicarbonate 24. Electrolytes normal. Creatinine has gradually dropped from 2.50-1.40 with a BUN of 48. Total protein and albumin low at 5.51.5 respectively. H&H is 8.5/28.6 and platelets are 183,000. This patient is beginning to wake up a little bit but she cannot follow instructions. She has a long ways to go. Bronchial washings are growing gram-positive cocci ID is pending. Sputum collections are growing gram-positive cocci and gram-negative rods. Urine from 01/08/2017 is growing gram-negative rods. No IDs and sensitivities have been reported. 01/11/2017. Today's chest x-ray shows cardiomegaly. There are increased markings in both perihilar areas. Natruretic peptide is increased from 183- 534. I think the patient has a mild element of congestive heart failure and I am going to give her IV push Lasix. Electrolytes normal. Creatinine has gradually dropped from 2.50-1.20 with a BUN of 35. White count remains elevated at 21,600 H&H remains low at 8.2/27.9. Patient is advancing to stage II of the weaning protocol. Lab chest x-ray and ABGs have been ordered for tomorrow morning. Today's ABGs on mechanical ventilation and FiO2 of 59% shows a pH 7.47, PCO2 of 35.1. PaO2 is increased to 236 and bicarb is 26.3. This represents an improvement. 01/12/2017. The patient was seen today along with her nurse. She remains on the ventilator and we are advancing with the weaning protocol as tolerated. Yesterday, patient did not do well with her CPAP trials. Chest x-ray today continues to show increased markings in both perihilar areas with cardiomegaly. BNP filled to 385 with diuresis. Will give another one-time dose of Lasix 40 mg IV now and then start Lasix 20 mg every 8 hours. Her last echocardiogram in August 2016 showed an estimated EF of 35-40%, mild mitral regurgitation, and suggested pulmonary artery pressure 46 mmHg. Will repeat echo today. Microbiology has been reviewed. Patient has various organisms growing. Urine culture grew Proteus mirabilis. Sputum culture obtained 01/08/2017 grew Proteus mirabilis, MRSA, strep agalactiae group B, Acinetobacter baumannii/hemolyticus, and Klebsiella pneumoniae. Bronchoscopy washings from 01/08/2017 grew MRSA, strep agalactiae group B, and Proteus mirabilis. Bronchoscopy lavage from 2016 is growing gram-positive cocci, gram-positive cocci #2, and microscopic plus panel 1. She is presently on Fortaz and vancomycin according to the sensitivities that have been provided. These can be adjusted if any new information becomes available. Note, pharmacology is managing the patient's vancomycin. Medications have been reviewed. Lasix as above. Labs been reviewed. White count is 19,400 with 70.0% segs, 12.7% lymphs, 14.8% monos; H&H 8.1/26.7; platelet count 168,000; creatinine improved to 1.20, BUN 33 , sodium 146, potassium 3.5, magnesium 2.2; total bilirubin 1.10, AST 26, ALT 15 , alkaline phosphatase 137; BNP 385; calcium 9.0, albumin 1.4, total protein 5.5 ; vancomycin trough 21.5. ABGs this morning on mechanical ventilation with an FiO2 of 59% show pH of 7.503 , PCO2 36.3, PO2 225.6, bicarb 27.9, and oxygen saturation 99.1% 01/13/2017. This is an 81-year-old white female who was admitted with aspiration pneumonia. She is on mechanical ventilation. She is been hard to wean. This has been complicated by the fact that she is in congestive heart failure. This is gradually improving. Today's chest x-ray shows mild cardiomegaly with central vascular engorgement bilaterally and increased markings in both lower lungs. Pleural effusions appear to be resolved. BNP has some fallen from 534-245. Creatinine has dropped from 1.8-1.2. BUN is 41. Potassium is low at 3.3. Patient is on replacement protocol. H&H is gradually dropped 7.3/24.4. Will transfuse with 1 unit of red blood cells today. White blood cell count has dropped from 22,800-13,300. Microbiology. Bronchoscopy specimens have grown methicillin-resistant staph aureus. Streptococcus agalactiae. Proteus mirabilis. Acinetobacter. Klebsiella. Urine cultures have grown Proteus mirabilis. All of these have excellent coverage with the patient's present antibiotics which are vancomycin and Fortaz. We plan to try CPAP of 5 with a pressure support of 15 today and perhaps patient can go a longer on her weaning trials. On her present ventilator settings she breathes faster than the settings with no problems. She has a tendency to hyperventilate once she has been on CPAP for short period of time. Echocardiogram 01/12/2017. Mild to moderate reduced left ventricular function with an ejection fraction estimated to be 35-40%. Right ventricular systolic pressures of 32 mmHg plus right atrial pressure. +1-+2 tricuspid regurgitation. Trace of mitral regurgitation Exam (Progress Note) Exam: Face. Symmetrical. Patient has a very large tongue. Neck. Symmetrical. No meningismus Vital signs. See below Lymphatics. No submandibular cervical supraclavicular or epitrochlear adenopathy Chest with large airway congestion Heart no gallop Abdomen is nondistended with rare bowel sounds Extremities with nothing to suggest acute deep venous thrombophlebitis Psychiatric/neurologic arousable. Times can follow simple instructions. Cranial nerves appear to be grossly intact. There is some movement in all 4 extremities. The remainder the exam is negative Plan: 01/12/2017. 1. Continue ventilator weaning protocol and advance as tolerated. 2. Daily chest x-ray and ABGs while on the ventilator. 3. Echocardiogram. 4. Lasix 40 mg IV 1 now then start Lasix 20 mg IV every 8 hours. 5. Follow-up repeat bronchoscopy cultures when available. 6. See orders. 01/13/2017 1. Vancomycin and Fortaz to cover all positive cultures. 2. Mechanical ventilation weaning protocol. Try CPAP of 5 with pressure support of 15. 3. See today's note above. 4. Transfuse 1 unit of red blood cells 5. Potassium replaced Exam (Progress Note) - Constitutional Vitals: Period Temp Pulse Resp BP Sys/Quezada Pulse Ox Last 24 Hr 97.8 F-97.9 F 65-80 12-25 87-124/38-57 98-100 Results - Labs CBC & BMP: 01/13/17 06:15 01/13/17 06:15
--- NOTE | 2017-01-13 11:03 | Hospitalist Progress Note ---
Assessment and Plan (1) Aspiration pneumonia Status: Acute Assessment and plan: The patient is receiving treatment for aspiration pneumonia via supportive ventilation and IV antibiotics. The patient has further evidence of hypovolemia on chest x-ray today. Dr. Quiros has ordered diuretic to reduce lung water and we will continue attempts to wean per weaning trial. The patient is now on vancomycin and ceftazidime for anti-infective regimen. Current Visit: Yes Qualifiers: Aspiration pneumonia type: due to gastric secretions Laterality: right Lung location: lower lobe of lung Qualified Code(s): J69.0 - Pneumonitis due to inhalation of food and vomit (2) COPD (chronic obstructive pulmonary disease) Status: Chronic Current Visit: No Qualifiers: COPD type: chronic bronchitis Chronic bronchitis type: simple Qualified Code(s): J41.0 - Simple chronic bronchitis (3) History of breast cancer Status: Chronic Current Visit: No (4) Chronic renal insufficiency Status: Acute Current Visit: Yes Hospitalist: Subjective Interval history: This mostly continues treatment for aspiration pneumonia while in the coronary care unit. The patient continues on mechanical ventilation and oxygen exchange is adequate. Antibiotics continue with vancomycin and Fortaz. Exam - Constitutional Vitals: Period Temp Pulse Resp BP Sys/Quezada Pulse Ox Last 24 Hr 97.8 F-97.9 F 65-80 12-25 87-124/38-57 98-100 Exam: Constitutional System: Minimal distress. No tremulousness. The patient is sedated Head: Normocephalic, atraumatic. Ears, Nose and Throat System: No evidence of Otitis or Mastoiditis. No epistaxis or discharge Eyes System: Pupils equal, round, and reactive. Neck: Supple, without adenopathy, No jugular venous distention. No thyromegaly , neck mass, or prior surgery apparent. Respiratory System: Chest rhonchi worse on the right to auscultation. Cardiovascular System: Heart with regular rate and rhythm. No murmur. GI System: Abdomen soft, nontender. Normo active bowel sounds present. Musculoskeletal System: limbs with 1+ pedal edema. Full distal pulses. Neurological System: Not testable due to sedation Results - Labs CBC & BMP: 01/13/17 06:15 01/13/17 06:15 Lab Results: I have reviewed the past 24 hour labs
[2017-01-13] MEDS: PROPOFOL 1,000 MG/100 ML BOTTLE IV SCH (15:50)
[2017-01-14] MEDS: INSULIN LISPRO 100 UNIT/ML SUBCUT SCH ×4 (00:10→20:36)
[2017-01-14] MEDS: METOCLOPRAMIDE 10 MG TABLET PO SCH ×4 (00:10→18:42)
[2017-01-14] MEDS: cefTAZidime 500 MG in SODIUM CHLORIDE 0.9% 100 ML IV SCH ×2 (00:10→11:55)
[2017-01-14] MEDS: ALBUTEROL/IPRATROPIUM 3 ML NEB RESP TX SCH ×4 (01:04→17:53)
[2017-01-14] MEDS: PROPOFOL 1,000 MG/100 ML BOTTLE IV SCH (04:38)
[2017-01-14 05:57] LABS: ABG Base Excess 6.7 MMOL/L (-2.5-2.5); ABG HCO3 30.6 MMOL/L (20-26); ABG Oxygen Saturation 99.4 % (95-100); ABG PCO2 42.2 MM HG (35-48); ABG PH 7.475 (7.35-7.45); ABG TCO2 27.6 MMOL/L (23-27)
[2017-01-14] MEDS: VANCOMYCIN INJ 1,000 MG in SODIUM CHLORIDE 0.9% 250 ML IV SCH (06:23)
[2017-01-14] MEDS: FUROSEMIDE 20 MG/2 ML VIAL IV SCH ×3 (06:23→21:56)
[2017-01-14 06:36] LABS: Basophils # 0.1 10*3/uL (0.0-0.2); Basophils % 0.4 % (0.0-0.8); Eosinophils # 0.5 10*3/uL (0.0-0.87); Eosinophils % 3.7 % (0.00-10.9); Hematocrit 30.2 VOL% (35.7-47.0); Hemoglobin 9.4 GM/DL (12.0-16.0); Immature Granulocytes % 1.4 %; Lymphocytes # 2.1 10*3/uL (1.4-4.0); Lymphocytes % 14.5 % (21.3-54.2); Mean Corpuscular HGB Conc 31.1 GM/DL (32-36); Mean Corpuscular Hemoglobin 29 PG (27-34); Mean Corpuscular Volume 91.5 FL (87-102); Mean Platelet Volume 11.5 FL (9.6-12.0); Monocytes # 1.9 10*3/uL (0.11-0.8); Monocytes % 13.2 % (1.7-12.7); Neutrophils # 9.5 10*3/uL (1.4-7.4); Neutrophils % 66.8 % (38.7-73.9); Platelet Count 222 T/CUMM (130-400); Red Cell Distribution Width 16.7 % (9.3-17.3); White Blood Count 14.2 T/CUMM (4-12)
--- NOTE | 2017-01-14 08:49 | Pulmonology Progress Note ---
Pulmonary - PN: Subj Interval history: Patient is an 81-year-old black lady that is a [facility] patient that has been on the ventilator with respiratory failure and pneumonia. There is also question of heart failure. She has been hard to wean so far. Her oxygenation is doing better. She has had multiple organisms growing on culture. She is getting IV antibiotics. She has been diuresing fairly well and her weight is down. She apparently responds fairly easily although she gets very anxious on CPAP. At present she seems to be fairly stable on the ventilator. Her chest x- ray still has bilateral infiltrates. Exam (Progress Note) - Constitutional Vitals: Period Temp Pulse Resp BP Sys/Quezada Pulse Ox Last 24 Hr 98.8 F-99.2 F 62-88 11-59 85-143/41-79 97-100 General appearance: no acute distress (She is comfortable on the ventilator.), over weight - Head Head exam: Present: normal inspection, normocephalic - Eye Eye exam: Present: EOMI. Absent: scleral icterus Pupils: Present: VALENTINA - ENT ENT exam: Present: other (ET tube is in good position) - Neck Neck exam: Absent: lymphadenopathy, thyromegaly - Respiratory Respiratory exam: Present: rales, rhonchi, other (Patient has fair breath sounds bilaterally with some bilateral rales and rhonchi.) - Cardiovascular Cardiovascular exam: Present: regular rate and rhythm. Absent: gallop, systolic murmur - GI/Abdominal GI/Abdominal exam: Present: normal bowel sounds, soft. 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 She underwent a cardiac ischemic screening a couple of years ago which showed no evidence of cardiac ischemia. She's not had any significant clinical change from a cardiac standpoint since that time. Status: Chronic Assessment and plan: The patient is being treated for heart failure and does have a reduced ejection fraction. Current Visit: No (2) COPD exacerbation Status: Acute Assessment and plan: The patient is being treated for obstructive airways disease. Current Visit: No (3) Renal insufficiency Status: Acute Assessment and plan: Her creatinine is stable at 1.2. Current Visit: Yes (4) On mechanically assisted ventilation Status: Acute Assessment and plan: The patient is stable on the ventilator but slow to wean. Will continue present therapy. Current Visit: Yes (5) Acute respiratory failure Status: Acute Assessment and plan: The patient had significant respiratory distress and is now on the ventilator. Current Visit: Yes (6) Aspiration pneumonia Status: Acute Assessment and plan: The patient is being treated for pneumonia and has multiple organisms on culture. Current Visit: Yes
[2017-01-14] MEDS: NOREPINEPHRINE 8 MG in SODIUM CHLORIDE 0.9% 242 ML IV SCH (09:09)
[2017-01-14] MEDS: CLOPIDOGREL 75 MG TABLET PO SCH (09:23)
[2017-01-14] MEDS: MUPIROCIN 2% OINT 22 GM TUBE TOP SCH ×2 (09:30→21:52)
[2017-01-14] MEDS: INSULIN GLARGINE 100 UNIT/ML SUBCUT SCH (09:31)
[2017-01-14] MEDS: ENOXAPARIN 40 MG/0.4 ML SYRINGE SUBCUT SCH (09:32)
[2017-01-14] MEDS: PANTOPRAZOLE 40 MG VIAL IV SCH (09:33)
[2017-01-14] MEDS: POTASSIUM CHLORIDE RIDER 20 MEQ in PREMIX 1 EACH IV PRN (09:41)
[2017-01-14] MEDS: DESITIN 4OZ/NYSTATIN 15 GRAM MIXTURE PASTE TOP SCH ×2 (11:54→21:52)
--- NOTE | 2017-01-14 12:21 | Hospitalist Progress Note ---
Assessment and Plan (1) Aspiration pneumonia Status: Acute Assessment and plan: The patient is receiving treatment for aspiration pneumonia via supportive ventilation and IV antibiotics. I am going to add some long-acting narcotic to help with the patient's anxiety and continue weaning trials per pulmonary eyewear consultant. The patient is now on vancomycin and ceftazidime for anti- infective regimen. Current Visit: Yes Qualifiers: Aspiration pneumonia type: due to gastric secretions Laterality: right Lung location: lower lobe of lung Qualified Code(s): J69.0 - Pneumonitis due to inhalation of food and vomit (2) COPD (chronic obstructive pulmonary disease) Status: Chronic Current Visit: No Qualifiers: COPD type: chronic bronchitis Chronic bronchitis type: simple Qualified Code(s): J41.0 - Simple chronic bronchitis (3) History of breast cancer Status: Chronic Current Visit: No (4) Chronic renal insufficiency Status: Acute Current Visit: Yes Hospitalist: Subjective Interval history: The patient is being treated for aspiration pneumonia and respiratory failure. Oxygenation is excellent but the patient's ventilatory capacity is compromised. She is having difficulty tolerating CPAP. I am going to add some Tussionex to see if this helps. Exam - Constitutional Vitals: Period Temp Pulse Resp BP Sys/Quezada Pulse Ox Last 24 Hr 98.0 F-99.2 F 62-88 11-59 85-143/41-79 97-100 Exam: Constitutional System: Distressed when weaning. No tremulousness. The patient is sedated Head: Normocephalic, atraumatic. Ears, Nose and Throat System: No evidence of Otitis or Mastoiditis. No epistaxis or discharge Eyes System: Pupils equal, round, and reactive. Neck: Supple, without adenopathy, No jugular venous distention. No thyromegaly , neck mass, or prior surgery apparent. Respiratory System: Chest rhonchi worse on the right to auscultation. Cardiovascular System: Heart with regular rate and rhythm. No murmur. GI System: Abdomen soft, nontender. Normo active bowel sounds present. Musculoskeletal System: limbs with 1+ pedal edema. Full distal pulses. Neurological System: Not testable due to sedation Results - Labs CBC & BMP: 01/14/17 06:24 01/14/17 06:24 Lab Results: I have reviewed the past 24 hour labs
[2017-01-14] MEDS: HYDROcodone/CHLORPHENIRAMINE ER 5 ML UDCUP PO SCH ×2 (13:47→21:52)
[2017-01-15] MEDS: cefTAZidime 500 MG in SODIUM CHLORIDE 0.9% 100 ML IV SCH ×2 (00:09→11:51)
[2017-01-15] MEDS: METOCLOPRAMIDE 10 MG TABLET PO SCH ×4 (00:10→18:27)
[2017-01-15] MEDS: INSULIN LISPRO 100 UNIT/ML SUBCUT SCH ×4 (00:11→18:27)
[2017-01-15] MEDS: PROPOFOL 1,000 MG/100 ML BOTTLE IV SCH ×2 (00:22→21:49)
[2017-01-15] MEDS: ALBUTEROL/IPRATROPIUM 3 ML NEB RESP TX SCH ×4 (01:44→19:38)
[2017-01-15 03:51] LABS: ABG Base Excess 10.5 MMOL/L (-2.5-2.5); ABG HCO3 34.6 MMOL/L (20-26); ABG Oxygen Saturation 99.1 % (95-100); ABG PCO2 44.9 MM HG (35-48); ABG PH 7.505 (7.35-7.45)
[2017-01-15] MEDS: NOREPINEPHRINE 8 MG in SODIUM CHLORIDE 0.9% 242 ML IV SCH ×2 (05:30→08:18)
[2017-01-15] MEDS: FUROSEMIDE 20 MG/2 ML VIAL IV SCH ×3 (05:37→21:57)
[2017-01-15 05:40] LABS: Basophils # 0.1 10*3/uL (0.0-0.2); Basophils % 0.4 % (0.0-0.8); Eosinophils # 0.7 10*3/uL (0.0-0.87); Eosinophils % 4.8 % (0.00-10.9); Hematocrit 29.8 VOL% (35.7-47.0); Hemoglobin 9.1 GM/DL (12.0-16.0); Immature Granulocytes % 1.1 %; Immature Granulocytes Absolute 0.16 #; Lymphocytes # 2.5 10*3/uL (1.4-4.0); Lymphocytes % 17.5 % (21.3-54.2); Mean Corpuscular HGB Conc 30.5 GM/DL (32-36); Mean Corpuscular Hemoglobin 28 PG (27-34); Mean Corpuscular Volume 92.8 FL (87-102); Mean Platelet Volume 11.7 FL (9.6-12.0); Monocytes # 1.3 10*3/uL (0.11-0.8); Monocytes % 9.1 % (1.7-12.7); Neutrophils # 9.6 10*3/uL (1.4-7.4); Neutrophils % 67.1 % (38.7-73.9); Platelet Count 242 T/CUMM (130-400); Red Blood Count 3.21 MC/CUMM (3.8-5.5); Red Cell Distribution Width 16.5 % (9.3-17.3); White Blood Count 14.2 T/CUMM (4-12)
[2017-01-15 06:16] LABS: Calcium 9.2 MG/DL (8.5-10.1); Magnesium 2.1 MG/DL (1.8-2.4); Osmolality,Calculated 299.7 MOS/KG (273-304); Potassium 4.1 MMOL/L (3.5-5.1)
--- NOTE | 2017-01-15 07:43 | Pulmonology Progress Note ---
Pulmonary - PN: Subj Interval history: Patient is an 81-year-old black lady that is a care home patient that has been on the ventilator with respiratory failure and pneumonia. There is also question of heart failure. She has been hard to wean so far. Her oxygenation is doing better. She has had multiple organisms growing on culture. She is getting IV antibiotics. She has been diuresing fairly well and her weight is down. Her oxygenation is doing much better now. Yesterday she did do CPAP a little better. Overall she seems to be improving. Exam (Progress Note) - Constitutional Vitals: Period Temp Pulse Resp BP Sys/Quezada Pulse Ox Last 24 Hr 97.4 F-98.4 F 63-91 13-41 94-142/44-62 94-100 Exam: General appearance: no acute distress (She is comfortable on the ventilator.), over weight - Head Head exam: Present: normal inspection, normocephalic - Eye Eye exam: Present: EOMI. Absent: scleral icterus Pupils: Present: VALENTINA - ENT ENT exam: Present: other (ET tube is in good position) - Neck Neck exam: Absent: lymphadenopathy, thyromegaly - Respiratory Respiratory exam: Present: She has good breath sounds bilaterally is moving air well with much less rhonchi. - Cardiovascular Cardiovascular exam: Present: regular rate and rhythm. Absent: gallop, systolic murmur - GI/Abdominal GI/Abdominal exam: Present: normal bowel sounds, soft. Absent: distended, organomegaly, tenderness - Extremities Exam Extremities exam: Absent: calf tenderness, edema, she has nothing to suggest phlebitis - Neurological Exam Neurological exam: Present: alert, other (She does respond fairly easily.) - Psychiatric Psychiatric exam: Present: anxious - Skin Skin exam: Present: warm, dry Results - Labs CBC & BMP: 01/15/17 04:52 01/15/17 04:52 Labs: PO2 is 231 with a PCO2 of 44 and a pH of 7.5. She is still on 60% O2. 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 She underwent a cardiac ischemic screening a couple of years ago which showed no evidence of cardiac ischemia. She's not had any significant clinical change from a cardiac standpoint since that time. Status: Chronic Assessment and plan: The patient is being treated for heart failure and does have a reduced ejection fraction. She is diuresing well and her weight is down. Current Visit: No (2) COPD exacerbation Status: Acute Assessment and plan: The patient is being treated for obstructive airways disease. She will continue with weaning. Current Visit: No (3) Renal insufficiency Status: Acute Assessment and plan: Her creatinine is stable at 1.2. She has good urine output and her renal function is stable. Current Visit: Yes (4) On mechanically assisted ventilation Status: Acute Assessment and plan: The patient is stable on the ventilator and is starting to do CPAP better. Current Visit: Yes (5) Acute respiratory failure Status: Acute Assessment and plan: The patient had significant respiratory distress and is now on the ventilator. We will continue to adjust her ventilator and continue weaning. Current Visit: Yes (6) Aspiration pneumonia Status: Acute Assessment and plan: The patient is being treated for pneumonia and has multiple organisms on culture. She is getting broad-spectrum antibiotics. Clinically she is doing better. Current Visit: Yes
[2017-01-15] MEDS: MUPIROCIN 2% OINT 22 GM TUBE TOP SCH ×2 (09:28→21:50)
[2017-01-15] MEDS: INSULIN GLARGINE 100 UNIT/ML SUBCUT SCH (09:30)
[2017-01-15] MEDS: ENOXAPARIN 40 MG/0.4 ML SYRINGE SUBCUT SCH (09:31)
[2017-01-15] MEDS: CLOPIDOGREL 75 MG TABLET PO SCH (09:33)
[2017-01-15] MEDS: DESITIN 4OZ/NYSTATIN 15 GRAM MIXTURE PASTE TOP SCH ×2 (09:34→21:51)
[2017-01-15] MEDS: HYDROcodone/CHLORPHENIRAMINE ER 5 ML UDCUP PO SCH ×2 (09:35→21:47)
[2017-01-15] MEDS: PANTOPRAZOLE 40 MG VIAL IV SCH (09:40)
--- NOTE | 2017-01-15 14:44 | Hospitalist Progress Note ---
Assessment and Plan (1) Aspiration pneumonia Status: Acute Assessment and plan: The patient is receiving treatment for aspiration pneumonia via supportive ventilation and IV antibiotics. I am going to add some long-acting narcotic to help with the patient's anxiety and continue weaning trials per pulmonary sales development consultant. The patient is now on vancomycin and ceftazidime for anti- infective regimen. Current Visit: Yes Qualifiers: Aspiration pneumonia type: due to gastric secretions Laterality: right Lung location: lower lobe of lung Qualified Code(s): J69.0 - Pneumonitis due to inhalation of food and vomit (2) COPD (chronic obstructive pulmonary disease) Status: Chronic Current Visit: No Qualifiers: COPD type: chronic bronchitis Chronic bronchitis type: simple Qualified Code(s): J41.0 - Simple chronic bronchitis (3) History of breast cancer Status: Chronic Current Visit: No (4) Chronic renal insufficiency Status: Acute Current Visit: Yes Hospitalist: Subjective Interval history: This is mostly remains sedated. She is making incremental progress in improving her respiratory failure which is due to aspiration pneumonia. She is tolerating CPAP trial better today after I put her on scheduled Tussionex yesterday. Exam - Constitutional Vitals: Period Temp Pulse Resp BP Sys/Quezada Pulse Ox Last 24 Hr 97.4 F-98.6 F 67-103 13-41 72-153/36-62 96-100 Exam: Constitutional System: Distressed when weaning. No tremulousness. The patient is sedated Head: Normocephalic, atraumatic. Ears, Nose and Throat System: No evidence of Otitis or Mastoiditis. No epistaxis or discharge Eyes System: Pupils equal, round, and reactive. Neck: Supple, without adenopathy, No jugular venous distention. No thyromegaly , neck mass, or prior surgery apparent. Respiratory System: Chest rhonchi worse on the right to auscultation. Cardiovascular System: Heart with regular rate and rhythm. No murmur. GI System: Abdomen soft, nontender. Normo active bowel sounds present. Musculoskeletal System: limbs with 1+ pedal edema. Full distal pulses. Neurological System: Not testable due to sedation Results - Labs CBC & BMP: 01/15/17 04:52 01/15/17 04:52 Lab Results: I have reviewed the past 24 hour labs
[2017-01-15] MEDS ORDERED: VANCOMYCIN INJ 1,000 MG in SODIUM CHLORIDE 0.9% 250 ML IV SCH (21:00)
[2017-01-16] MEDS: INSULIN LISPRO 100 UNIT/ML SUBCUT SCH ×3 (00:03→12:08)
[2017-01-16] MEDS: METOCLOPRAMIDE 10 MG TABLET PO SCH ×3 (00:19→12:08)
[2017-01-16] MEDS: ALBUTEROL/IPRATROPIUM 3 ML NEB RESP TX SCH ×3 (00:20→12:35)
[2017-01-16] MEDS: cefTAZidime 500 MG in SODIUM CHLORIDE 0.9% 100 ML IV SCH ×2 (00:23→12:08)
[2017-01-16 03:32] LABS: ABG Base Excess 8.4 MMOL/L (-2.5-2.5); ABG HCO3 32.6 MMOL/L (20-26); ABG PCO2 42.9 MM HG (35-48); ABG PH 7.498 (7.35-7.45); ABG PO2 153.8 MM HG (80-95); ABG TCO2 33.9 MMOL/L (23-27)
[2017-01-16 03:34] LABS: ABG Oxygen Saturation 99.1 % (95-100)
[2017-01-16 04:44] LABS: Basophils # 0.1 10*3/uL (0.0-0.2); Basophils % 0.4 % (0.0-0.8); Eosinophils # 0.7 10*3/uL (0.0-0.87); Eosinophils % 3.9 % (0.00-10.9); Hemoglobin 8.4 GM/DL (12.0-16.0); Immature Granulocytes % 0.9 %; Immature Granulocytes Absolute 0.17 #; Lymphocytes # 2.8 10*3/uL (1.4-4.0); Lymphocytes % 14.8 % (21.3-54.2); Mean Corpuscular HGB Conc 31.1 GM/DL (32-36); Mean Corpuscular Hemoglobin 29 PG (27-34); Mean Corpuscular Volume 93.4 FL (87-102); Monocytes # 1.5 10*3/uL (0.11-0.8); Monocytes % 7.8 % (1.7-12.7); Neutrophils # 13.6 10*3/uL (1.4-7.4); Neutrophils % 72.2 % (38.7-73.9); Platelet Count 328 T/CUMM (130-400); Red Blood Count 2.89 MC/CUMM (3.8-5.5); Red Cell Distribution Width 16.3 % (9.3-17.3); White Blood Count 18.8 T/CUMM (4-12)
[2017-01-16 05:20] LABS: Calcium 9.1 MG/DL (8.5-10.1); Magnesium 2.2 MG/DL (1.8-2.4); Potassium 4.3 MMOL/L (3.5-5.1)
[2017-01-16 06:01] LABS: Magnesium 2.2 MG/DL (1.8-2.4); Phosphorous 3.1 MG/DL (2.5-4.9); Prealbumin 6.9 MG/DL (20-40)
[2017-01-16] MEDS: NOREPINEPHRINE 8 MG in SODIUM CHLORIDE 0.9% 242 ML IV SCH (06:11)
[2017-01-16] MEDS: FUROSEMIDE 20 MG/2 ML VIAL IV SCH ×2 (06:23→13:00)
[2017-01-16] MEDS: PROPOFOL 1,000 MG/100 ML BOTTLE IV SCH (06:52)
--- NOTE | 2017-01-16 08:00 | XRay Report ---
History: Patient on ventilator Date: 01/16/2017 Study: Chest x-ray AP portable Comparison exam: January 13, 2017 The endotracheal tube tip is located at the orifice of the right mainstem bronchus and could be safely withdrawn 3.5 cm as discussed with the nursing staff by telephone at the time of dictation. The right subclavian transvenous pacemaker is generally intact and unchanged. There is no significant change in the cardiomediastinal silhouette. There is slightly increased patchy right basilar infiltrate on the current study. The lungs are otherwise unchanged. There is no increasing pleural effusion. Osseous structures are similar. Impression: The endotracheal tube tip is at the orifice of the right mainstem bronchus and could be safely withdrawn 3.5 cm Mildly increased right basilar infiltrate compared to the previous exam PROCEDURE INTERPRETED AT [facility] DEPARTMENT OF RADIOLOGY Final Report Signed by: Dr. Roxy Gomez
--- NOTE | 2017-01-16 08:06 | Hospitalist Progress Note ---
Assessment and Plan (1) Renal insufficiency Status: Acute Assessment and plan: Creatinine stable at 1.3. Current Visit: Yes (2) On mechanically assisted ventilation Status: Acute Assessment and plan: Continue weaning as tolerated. Current Visit: Yes (3) Acute respiratory failure Status: Acute Assessment and plan: Secondary to aspiration pneumonia. The patient has been accepted to [facility]. Will discuss with pulmonary regarding transfer there today. Current Visit: Yes Qualifiers: Respiratory failure complication: hypoxia Qualified Code(s): J96.01 - Acute respiratory failure with hypoxia (4) Aspiration pneumonia Status: Acute Assessment and plan: Continue IV antibiotics with Fortaz and vancomycin. Pulmonary following. Current Visit: Yes Qualifiers: Aspiration pneumonia type: unspecified Laterality: right Lung location: lower lobe of lung Qualified Code(s): J69.0 - Pneumonitis due to inhalation of food and vomit (5) Diabetes Status: Chronic Assessment and plan: Continue sliding scale insulin and Accu-Cheks. Diabetic tube feeds initiated. Current Visit: Yes Qualifiers: Diabetes mellitus type: type 2 Diabetes mellitus complication status: with hyperglycemia Hospitalist: Subjective Interval history: Patient seen and examined. No acute events overnight. Case discussed with nursing staff. Labs reviewed. Ms. Oconnell remains on the ventilator with respiratory failure secondary to pneumonia. She is on appropriate antibiotic therapy with Fortaz and vancomycin according to her cultures. She is diuresing well with Lasix 20 IV every 8 hours. Tolerating tube feeds at 35 cc/h. She had a mild elevation in her white blood cell count. Tmax 100.1 Exam - Constitutional Vitals: Period Temp Pulse Resp BP Sys/Quezada Pulse Ox Last 24 Hr 98.2 F-100.1 F 74-103 10-39 84-153/43-70 95-100 Exam: Constitutional System: No distress. No tremulousness. Head: Normocephalic, atraumatic. Ears, Nose and Throat System: No pain or tenderness. No epistaxis or discharge. Endotracheal tube in place Eyes System: Pupils equal, round, and reactive. Extraocular muscles intact. Neck: Supple, without adenopathy, No jugular venous distention. No thyromegaly, neck mass, or prior surgery apparent. Respiratory System: Chest clear to auscultation. Cardiovascular System: Heart with regular rate and rhythm. No murmur. GI System: Abdomen soft, nontender. Normo active bowel sounds present. Musculoskeletal System: Both arms with pitting edema. Full distal pulses. Normal capillary refill. Neurological System: Awake, makes eye contact. Eyes open. Psychiatric System: Unable to assess secondary to intubation and mechanical ventilation. Results - Labs CBC & BMP: 01/16/17 04:20 01/16/17 04:20 Lab Results: I have reviewed the past 24 hour labs - Diagnostic Findings Procedure: Chest x-ray: image reviewed by me
[2017-01-16] MEDS: PANTOPRAZOLE 40 MG VIAL IV SCH (08:15)
[2017-01-16] MEDS: INSULIN GLARGINE 100 UNIT/ML SUBCUT SCH (08:15)
[2017-01-16] MEDS: ENOXAPARIN 40 MG/0.4 ML SYRINGE SUBCUT SCH (08:15)
[2017-01-16] MEDS: CLOPIDOGREL 75 MG TABLET PO SCH (08:15)
[2017-01-16] MEDS: DESITIN 4OZ/NYSTATIN 15 GRAM MIXTURE PASTE TOP SCH (08:16)
[2017-01-16] MEDS: MUPIROCIN 2% OINT 22 GM TUBE TOP SCH (08:16)
[2017-01-16] MEDS: HYDROcodone/CHLORPHENIRAMINE ER 5 ML UDCUP PO SCH (08:29)
--- NOTE | 2017-01-16 10:03 | Pulmonology Progress Note ---
Pulmonary - PN: Subj Interval history: This 81-year-old black female who is seen in pulmonary consultation on our behalf by Dr. Lambert Quinonez. Patient was admitted to the hospital on 01/08/2017 after transfer from [facility]. Patient was thought to have aspirated from her PEG feedings. She had developed fever and chills. She required intubation in the emergency room. Her daughter said that she had a healing sacral decubitus ulcer and had been receiving wound care for this. Dr. Roosevelt Cespedes follows her decubitus ulcer. Patient was febrile. She had a sodium of 153. Creatinine was 2.9 with a BUN of 125. Lactic acid was elevated at 4.1. Troponins are 0.138. She was hypotensive with a blood pressure of 78/ 45. Heart rate was 108/min and temp was 102.4. On 01/08/2017 patient was evaluated by Dr. Quinonez with fiberoptic bronchoscopy. Great deal of material was removed. See his report. 01/09/2017. Bronchoscopy specimens are growing 2 different gram-positive cocci. Sputum is growing a gram-negative edwin and 2 different gram-positive cocci. Patient has MRSA in the nares. Urine cultures growing a gram-negative edwin. Chest x-ray. 01/09/2017. Cardiomegaly. Bibasilar atelectasis. His chest x- ray is markedly improved from one done 01/08/2017 which showed a significant right lower lung infiltrate. Lab. White count is 21,400. H&H is 8.4/29.8. Platelets are 163,000. Sodium is dropped to 150 with a potassium of 4.0. Creatinine has dropped from 2.50- 1.80 with a BUN of 76. Liver function tests are normal. Natruretic peptide is 183. Protein and albumin are low at 5.41.6 respectively. ABGs. Mechanical ventilation. FiO2 60%. PH is 7.348, PCO2 is 41.5, PO2 is 154.5. Bicarb is 22.3. Medicines. Agree with vancomycin. Pharmacology is managing this. I am changing the patient's Rocephin to Fortaz for better gram-negative edwin coverage. Patient will be started with a test dose. 01/10/2017. Patient was evaluated with fiberoptic bronchoscopy this morning. She still has significant retention of secretions in all 5 lobes of her lung. See bronchoscopy report. She has become afebrile and white blood cell count remains elevated 22,800. Chest x-ray shows a right lower lung infiltrate and bibasilar atelectasis. ABGs on FiO2 of 60% shows a pH 7.42, PCO2 37.4, PO2 179.1 and a bicarbonate 24. Electrolytes normal. Creatinine has gradually dropped from 2.50-1.40 with a BUN of 48. Total protein and albumin low at 5.51.5 respectively. H&H is 8.5/28.6 and platelets are 183,000. This patient is beginning to wake up a little bit but she cannot follow instructions. She has a long ways to go. Bronchial washings are growing gram-positive cocci ID is pending. Sputum collections are growing gram-positive cocci and gram-negative rods. Urine from 01/08/2017 is growing gram-negative rods. No IDs and sensitivities have been reported. 01/11/2017. Today's chest x-ray shows cardiomegaly. There are increased markings in both perihilar areas. Natruretic peptide is increased from 183- 534. I think the patient has a mild element of congestive heart failure and I am going to give her IV push Lasix. Electrolytes normal. Creatinine has gradually dropped from 2.50-1.20 with a BUN of 35. White count remains elevated at 21,600 H&H remains low at 8.2/27.9. Patient is advancing to stage II of the weaning protocol. Lab chest x-ray and ABGs have been ordered for tomorrow morning. Today's ABGs on mechanical ventilation and FiO2 of 59% shows a pH 7.47, PCO2 of 35.1. PaO2 is increased to 236 and bicarb is 26.3. This represents an improvement. 01/12/2017. The patient was seen today along with her nurse. She remains on the ventilator and we are advancing with the weaning protocol as tolerated. Yesterday, patient did not do well with her CPAP trials. Chest x-ray today continues to show increased markings in both perihilar areas with cardiomegaly. BNP filled to 385 with diuresis. Will give another one-time dose of Lasix 40 mg IV now and then start Lasix 20 mg every 8 hours. Her last echocardiogram in August 2016 showed an estimated EF of 35-40%, mild mitral regurgitation, and suggested pulmonary artery pressure 46 mmHg. Will repeat echo today. Microbiology has been reviewed. Patient has various organisms growing. Urine culture grew Proteus mirabilis. Sputum culture obtained 01/08/2017 grew Proteus mirabilis, MRSA, strep agalactiae group B, Acinetobacter baumannii/hemolyticus, and Klebsiella pneumoniae. Bronchoscopy washings from 01/08/2017 grew MRSA, strep agalactiae group B, and Proteus mirabilis. Bronchoscopy lavage from 2016 is growing gram-positive cocci, gram-positive cocci #2, and microscopic plus panel 1. She is presently on Fortaz and vancomycin according to the sensitivities that have been provided. These can be adjusted if any new information becomes available. Note, pharmacology is managing the patient's vancomycin. Medications have been reviewed. Lasix as above. Labs been reviewed. White count is 19,400 with 70.0% segs, 12.7% lymphs, 14.8% monos; H&H 8.1/26.7; platelet count 168,000; creatinine improved to 1.20, BUN 33 , sodium 146, potassium 3.5, magnesium 2.2; total bilirubin 1.10, AST 26, ALT 15 , alkaline phosphatase 137; BNP 385; calcium 9.0, albumin 1.4, total protein 5.5 ; vancomycin trough 21.5. ABGs this morning on mechanical ventilation with an FiO2 of 59% show pH of 7.503 , PCO2 36.3, PO2 225.6, bicarb 27.9, and oxygen saturation 99.1% 01/13/2017. This is an 81-year-old white female who was admitted with aspiration pneumonia. She is on mechanical ventilation. She is been hard to wean. This has been complicated by the fact that she is in congestive heart failure. This is gradually improving. Today's chest x-ray shows mild cardiomegaly with central vascular engorgement bilaterally and increased markings in both lower lungs. Pleural effusions appear to be resolved. BNP has some fallen from 534-245. Creatinine has dropped from 1.8-1.2. BUN is 41. Potassium is low at 3.3. Patient is on replacement protocol. H&H is gradually dropped 7.3/24.4. Will transfuse with 1 unit of red blood cells today. White blood cell count has dropped from 22,800-13,300. Microbiology. Bronchoscopy specimens have grown methicillin-resistant staph aureus. Streptococcus agalactiae. Proteus mirabilis. Acinetobacter. Klebsiella. Urine cultures have grown Proteus mirabilis. All of these have excellent coverage with the patient's present antibiotics which are vancomycin and Fortaz. We plan to try CPAP of 5 with a pressure support of 15 today and perhaps patient can go a longer on her weaning trials. On her present ventilator settings she breathes faster than the settings with no problems. She has a tendency to hyperventilate once she has been on CPAP for short period of time. Echocardiogram 01/12/2017. Mild to moderate reduced left ventricular function with an ejection fraction estimated to be 35-40%. Right ventricular systolic pressures of 32 mmHg plus right atrial pressure. +1-+2 tricuspid regurgitation. Trace of mitral regurgitation 01/16/2017 today's chest x-ray shows increase having a lung markings diffusely. These are most prominent at the right base. Microbiology has previously been noted. Patient's growing methicillin-resistant staph aureus. Another species of staph. Streptococcus agalactiae. Proteus mirabilis. Klebsiella. Acinetobacter. She is covered with her present antibiotics which are vancomycin and Fortaz. ABGs on mechanical ventilation and FiO2 of 59% show a pH of 7.498, PCO2 43, PO2 153 and bicarb of 33. Patient is doing better on her CPAP trials today. Electrolytes are normal. White count is 18,800. H&H is 8.4 /27.0. Electrolytes normal. Creatinine is 1.30 with a BUN of 55. BNP is 265 patient's had one elevation of her temp in the last several days. I have been told this patient has been accepted at [facility] for long-term acute care. I am agreeable with this. She will be admitted either to Dr. Howie Torres or Dr. Lambert Quinonez. On 01/15/2017 the patient's vancomycin trough level was 28.7. This is being managed by pharmacology. Exam (Progress Note) Exam: Face. Symmetrical. Patient has a very large tongue. Neck. Symmetrical. No meningismus Vital signs. See below. One episode of temp to 100 in the last 2 days. Lymphatics. No submandibular cervical supraclavicular or epitrochlear adenopathy Chest with large airway congestion Heart no gallop Abdomen is nondistended with rare bowel sounds Extremities with nothing to suggest acute deep venous thrombophlebitis Psychiatric/neurologic arousable. Times can follow simple instructions. Cranial nerves appear to be grossly intact. There is some movement in all 4 extremities. The remainder the exam is negative Plan: 01/12/2017. 1. Continue ventilator weaning protocol and advance as tolerated. 2. Daily chest x-ray and ABGs while on the ventilator. 3. Echocardiogram. 4. Lasix 40 mg IV 1 now then start Lasix 20 mg IV every 8 hours. 5. Follow-up repeat bronchoscopy cultures when available. 6. See orders. 01/13/2017 1. Vancomycin and Fortaz to cover all positive cultures. 2. Mechanical ventilation weaning protocol. Try CPAP of 5 with pressure support of 15. 3. See today's note above. 4. Transfuse 1 unit of red blood cells 5. Potassium replaced 01/16/2017. 1. See today's note above. 2. Possible transfer to [facility] today where she will be under the care of either Dr. Brian Quinonez. 3. Continue present antibiotics. 4. The patient has a tendency to slip into mild congestive heart failure 5. Watch vancomycin trough levels. Exam (Progress Note) - Constitutional Vitals: Period Temp Pulse Resp BP Sys/Quezada Pulse Ox Last 24 Hr 97.9 F-100.1 F 74-103 10-39 84-140/43-70 95-100 Results - Labs CBC & BMP: 01/16/17 04:20 01/16/17 04:20
[2017-01-16] MEDS ORDERED: COLLAGENASE OINT 30 GM TUBE TOP SCH (11:00)
--- NOTE | 2017-01-16 11:20 | Discharge Summary ---
<Nyla German - Last Filed: 01/16/17 15:13> Hospital Course - Hospital Course Hospital Course: Ms Oconnell 81 y/o w/PMHx of COPD, CVA from [facility] presented to the ED on 01/08/17 for further evaluation of respiratory distress and aspiration of gastric contents and was intubated upon arrival to the ED. IN ED: WBC 19.9, Sodium 153, Potassium 5.4, BUN 125, Creatinine 2.90, Glucose 340, Lactic Acid 4.1, Troponin 0.138, Total Creatine Kinase 528. Vitals with a temp of 102.4, tachycardic at 108 bpm, and hypotensive at 78/45. Hospitalist services were consulted for admission to ICU, evaluation and treatment. She was admitted for aspiration pneumonia, severe dehydration with acute renal failure and evidence of septic shock. Started IV fluids for hydration and sepsis; Pneumonia: antibiotics started and blood cultures obtained , UTI: empiric antibiotics and urine culture obtained and pulmonary was consulted. Pulmonary consult with plans and recommendations: Broncoscopy performed on and specimens obtained grew methicillin-resistant staph aureus, Streptococcus agalactiae. On Vancomycin and Fortaz: which appears to cover all entities. Urine cultures grew Proteus mirabilis. On vancomycin and fortaz and covers all entities. Final Blood cultures show no growth. Today 01/16/17 patient is stable and continues to do better with CPAP trials and showing overall improvements. She has been accepted at [facility] for continuation of Long-Term Acute Care. She will be followed by Pulmonary while in LTAC. She will need to continue wound care. Dr Cespedes has been following her wound care of sacral decubitus ulcer- STAGE 3 and present on arrival to the hospital. She will need to follow up with her primary care physician once she is discharged. Further recommendations of care with discharge planning and transfer to LTAC to follow per Dr Ramos. I have personally seen and examined this patient today. I agree with the below note as prepared by the advanced practice provider. I agree with the assessment and plan. The patient was admitted by me in the emergency department 8 days ago. She has continued to improve during the course of the hospitalization and is receiving treatment for pneumonia and UTI based on cultures and sensitivity reports. She should continue vancomycin and Fortaz. She is being followed by pulmonary as well as wound care. Case discussed with Nyla German, MAGNETIC TAPE TYPEWRITER OPERATOR and nursing staff as well as case management. Discharge Plan - Discharge Data Disposition: Disch/Xfer to [facility] - Discharge Medications New Albuterol/Ipratropium Neb [Duoneb] 3 ml RESP TX RT Q4H PRN PRN Reason: Shortness Of Breath/Wheezing cefTAZidime [Fortaz] 500 mg IV Q12H vial Dextrose 50% [D50] 25 gm IV PRN PRN syringe PRN Reason: Hypoglycemia with IV access Furosemide Inj [Lasix Inj] 20 mg IV Q8HR vial Glucagon 1 mg IM PRN PRN vial PRN Reason: Hypoglycemia w/o IV access Heparin Lock Flush 50 units IV PRN PRN syringe PRN Reason: Flush Insulin Lispro [HumaLOG] See Protocol SUBCUT Q6HR unit Mupirocin 2% Oint [Bactroban 2% Oint] 1 applic TOP BID applic Pantoprazole Inj [Protonix Inj] 40 mg IV DAILY vial Potassium Chloride Solo 10 meq IV .PER PROTOCOL PRN PRN Reason: Per Protocol Potassium Chloride Solo 20 meq IV .PER PROTOCOL PRN PRN Reason: Per Protocol Vancomycin Inj 1,000 mg IV Q36H vial Acetaminophen Tab [Tylenol Tab] 325 mg PO Q4H PRN tablet PRN Reason: fever, headache/body aches Albuterol/Ipratropium Neb [Duoneb] 3 ml RESP TX RT Q6H Collagenase Oint [Santyl Oint] 1 applic TOP DAILY applic Enoxaparin [Lovenox] 40 mg SUBCUT Q24H syringe HYDROcodone/CHLORPHEN ER SUSP [Tussionex] 5 ml PO BID Ondansetron Inj [Zofran Inj] 4 mg IV Q4H PRN vial PRN Reason: Nausea Continue Magnesium Hydroxide [Milk of Magnesia] 30 ml PO Q24H PRN PRN Reason: Constipation Docusate Sodium Cap [Colace Cap] 100 mg PO BID PRN capsule PRN Reason: Constipation Skin Healing Oint (Aquaphor) [Aquaphor] 1 applic TOP PRN PRN applic PRN Reason: Dry Skin Insulin Glargine [Lantus] 15 unit SUBCUT BEDTIME Metoclopramide HCl 10 mg PO Q6H Clopidogrel [Plavix] 75 mg PO DAILY #30 tablet Discontinued Multivitamin (Centrum) [Centrum Tab] 1 tablet PO DAILY Insulin Regular, Human [NovoLIN R] See Protocol SUBCUT ACHS Albuterol/Ipratropium Neb [Duoneb] 3 ml RESP TX RT Q6H #30 Famotidine Tab [Pepcid Tab] 20 mg PO BID #60 tablet guaiFENesin/DM ER 600-30 [Mucinex Dm 600-30 MG] 1 tablet PO BID PRN #20 tablet PRN Reason: Congestion Nebivolol [Bystolic] 5 mg PO DAILY Acetaminophen Tab [Tylenol Tab] 325 mg PO Q4H PRN tablet PRN Reason: fever, headache/body aches - Follow Up or Referral - Forms/Instructions Instructions: How to Prevent Pressure Ulcers (GEN), Aspiration Pneumonia (GEN) Exam - Constitutional Vitals: Period Temp Pulse Resp BP Sys/Quezada Pulse Ox Last 24 Hr 97.8 F-100.1 F 62-93 10-35 89-140/43-75 95-100 Discharge Results Procedures and tests throughout hospitalization: Pending Orders 01/10/17 Fungal Culture w/ Prep Stat 01/16/17 04:25 MRSA Surveillence, Inf Control Routine 01/17/17 04:00 XR chest 1V portable IN AM ABG [Arterial Blood Gas] IN AM CMP [Comprehensive Metabolic Panel] IN AM Comp Blood Count Auto Diff IN AM Labs on day of discharge: Labs from last 24 hours 01/16/17 01/16/17 01/16/17 11:04 06:07 04:20 WBC RBC Hgb Hct MCV MCH MCHC RDW Plt Count MPV Neut % (Auto) Lymph % (Auto) [place] % (Auto) Eos % (Auto) Baso % (Auto) Neut # (Auto) Lymph # (Auto) [place] # (Auto) Eos # (Auto) Baso # (Auto) Immature Gran % Nucleated RBC % Immature Gran # Nucleated RBCs # Immature Plt Fraction ABG pH ABG pCO2 ABG pO2 ABG HCO3 ABG Total CO2 ABG O2 Saturation ABG Base Excess Sodium Potassium Chloride Carbon Dioxide Anion Gap BUN Creatinine GFR Calculation BUN/Creatinine Ratio Glucose POC Glucose 186 H 199 H Calculated Osmolality Calcium Phosphorus Magnesium B-Natriuretic Peptide 265 H Prealbumin 01/16/17 01/16/17 01/16/17 04:20 04:20 04:20 WBC 18.8 H D RBC 2.89 L Hgb 8.4 L Hct 27.0 L MCV 93.4 MCH 29 MCHC 31.1 L RDW 16.3 Plt Count 328 D MPV 11.0 Neut % (Auto) 72.2 Lymph % (Auto) 14.8 L [place] % (Auto) 7.8 Eos % (Auto) 3.9 Baso % (Auto) 0.4 Neut # (Auto) 13.6 H Lymph # (Auto) 2.8 [place] # (Auto) 1.5 H Eos # (Auto) 0.7 Baso # (Auto) 0.1 Immature Gran % 0.9 Nucleated RBC % 0.0 Immature Gran # 0.17 Nucleated RBCs # 0.00 Immature Plt Fraction 0.0 ABG pH ABG pCO2 ABG pO2 ABG HCO3 ABG Total CO2 ABG O2 Saturation ABG Base Excess Sodium 143 Potassium 4.3 Chloride 102 Carbon Dioxide 35 H Anion Gap 10.3 BUN 55 H Creatinine 1.30 H GFR Calculation 45 BUN/Creatinine Ratio 42.00 H Glucose 153 H POC Glucose Calculated Osmolality 302.0 Calcium 9.1 Phosphorus 3.1 Magnesium 2.2 2.2 B-Natriuretic Peptide Prealbumin 6.9 L 01/16/17 01/16/17 01/15/17 03:33 00:01 18:13 WBC RBC Hgb Hct MCV MCH MCHC RDW Plt Count MPV Neut % (Auto) Lymph % (Auto) [place] % (Auto) Eos % (Auto) Baso % (Auto) Neut # (Auto) Lymph # (Auto) [place] # (Auto) Eos # (Auto) Baso # (Auto) Immature Gran % Nucleated RBC % Immature Gran # Nucleated RBCs # Immature Plt Fraction ABG pH 7.498 H ABG pCO2 42.9 ABG pO2 153.8 H ABG HCO3 32.6 H ABG Total CO2 33.9 H ABG O2 Saturation 99.1 ABG Base Excess 8.4 H Sodium Potassium Chloride Carbon Dioxide Anion Gap BUN Creatinine GFR Calculation BUN/Creatinine Ratio Glucose POC Glucose 150 H 237 H Calculated Osmolality Calcium Phosphorus Magnesium B-Natriuretic Peptide Prealbumin DS: Provider Date of admission: 01/08/17 04:05 Primary care physician: Jacky Ramirez MD Attending physician on admission: Esteban Ramos MD Consults: 01/08/17 04:05 Consult to Physician [CONS] Routine Comment: ventilator mgmt, respiratory failure, pneumonia Consulting Provider: Sourav Slade 01/08/17 04:09 Consult to Case Mgmt/Social Srvs [CONS] Routine Reason for Case Mgmt/Social Srvs: Discharge Planning Consult to Occupational Therapy [CONS] Routine Reason for Occupational Therapy: Evaluate and Treat Consult to Wound Care - [place] [CONS] Routine Reason for Wound Care: Wound Care Management 01/08/17 13:22 Consult to Pharmacy [CONS] Routine Reason for Pharmacy Consult: Dose/Manage Antibiotics Dose/Manage Vancomycin 01/13/17 09:45 Consult to Case Mgmt/Social Srvs [CONS] Routine Reason for Case Mgmt/Social Srvs: LTAC Discharging clinician: Nyla German NP <Esteban Ramos - Last Filed: 01/16/17 15:23> Hospital Course - Time spent with patient Time with patient DS: Greater than 30 minutes (Total discharge time for this patient, including [id number] time, clinical documentation, medication reconciliation, and discharge planning was 39 minutes.) Diagnosis - Discharge Diagnosis (1) Renal insufficiency Status: Acute (2) On mechanically assisted ventilation Status: Acute (3) Acute respiratory failure Status: Acute (4) Aspiration pneumonia Status: Acute (5) Diabetes Status: Chronic (6) Sacral decubitus ulcer, stage III Status: Acute (7) Urinary tract infection Status: Acute Discharge Plan - Discharge Data Condition at Discharge: Stable Discharge Diet: other (Tube feeding) Contact your physician if you experience:: fever over 101, Shortness of breath DS: Provider Expected date of discharge: 01/16/17
[2017-01-16 15:19] VITALS: BP 119/66
== END 2017-01-16 16:20 | DRG 853 ==
LOC: EDUNIT# → EDBD → N.ED 02:27 → SUATTDRO 04:05 → N.EDINP 04:05 → N.CC 05:02
PROVIDERS: ADMIT Family Medicine; ATTEND Family Medicine

== ENCOUNTER 2017-04-04 04:24 | Inpatient (IN) ==
[2017-04-04] MEDS ORDERED: CLINDAMYCIN INJ 600 MG in PREMIX 1 EACH IV STA (04:38)
[2017-04-04] MEDS ORDERED: methylPREDNISolone SOD SUC 125 MG/2 ML VIAL IV STA (04:38)
[2017-04-04] MEDS ORDERED: VANCOMYCIN INJ 1,000 MG in SODIUM CHLORIDE 0.9% 250 ML IV STA (04:38)
[2017-04-04] MEDS ORDERED: FUROSEMIDE 100 MG/10 ML VIAL IV STA (04:38)
[2017-04-04] MEDS ORDERED: ONDANSETRON 4 MG/2 ML VIAL IV STA (04:38)
[2017-04-04] MEDS ORDERED: ALBUTEROL 2.5 MG/3 ML NEB RESP TX SCH (05:00)
[2017-04-04 05:13] LABS: Basophils # 0.1 10*3/uL (0.0-0.2); Basophils % 0.3 % (0.0-0.8); Eosinophils # 0.4 10*3/uL (0.0-0.87); Hematocrit 35.1 VOL% (35.7-47.0); Hemoglobin 11.1 GM/DL (12.0-16.0); Immature Granulocytes % 0.5 %; Lymphocytes # 2.9 10*3/uL (1.4-4.0); Mean Corpuscular HGB Conc 31.6 GM/DL (32-36); Mean Corpuscular Hemoglobin 29 PG (27-34); Mean Corpuscular Volume 92.1 FL (87-102); Mean Platelet Volume 10.9 FL (9.6-12.0); Monocytes # 2.1 10*3/uL (0.11-0.8); Monocytes % 10.4 % (1.7-12.7); Neutrophils # 14.9 10*3/uL (1.4-7.4); Neutrophils % 72.8 % (38.7-73.9); Platelet Count 370 T/CUMM (130-400); Red Blood Count 3.81 MC/CUMM (3.8-5.5); White Blood Count 20.5 T/CUMM (4-12)
[2017-04-04] MEDS ORDERED: PROPOFOL 1,000 MG/100 ML BOTTLE IV ONE (05:19)
[2017-04-04 05:24] LABS: INR 0.9
[2017-04-04 05:39] LABS: Eosinophils 1 % (0-10); Hypochromasia 1+; Lymphocytes 16 % (20-55); Platelet Estimate Normal; Segmented Neutrophils 73 % (50-85); Total Cells Counted 100
[2017-04-04 05:43] LABS: Bilirubin,Total 0.6 MG/DL (0.2-1.0); Calcium 10.4 MG/DL (8.5-10.1); Magnesium 2.3 MG/DL (1.8-2.4); Potassium 4.8 MMOL/L (3.5-5.1)
[2017-04-04 05:46] LABS: Troponin I Only 0.081 NG/ML (0.00-0.045)
[2017-04-04 06:18] LABS: Apearance,Urine CLOUDY (Clear); Bacteria,Urine Occasional /HPF (Few); Bilirubin,Urine Negative (Negative); Blood, Urine Small mg/dL (Negative); Glucose,Urine (UA) >=500 mg/dL (Negative); Ketones,Urine Negative (Negative); Nitrite,Urine Negative (Negative); Protein,Urine 30 MG/DL; RBC,Urine 10 /HPF (0-4); Squamous Epithelial Cell,Urine Occasional /HPF (0-10); Urine Color Yellow (Yellow); Urine Specific Gravity 1.011 (1.001-1.035); Urine Urobilinogen < 2.0 EU/DL (0.2-1.0); WBC,Urine 193 /HPF (0-6)
[2017-04-04 06:20] LABS: ABG Base Excess 4.5 MMOL/L (-2.5-2.5); ABG HCO3 28.5 MMOL/L (20-26); ABG PCO2 48.1 MM HG (35-48); ABG PH 7.404 (7.35-7.45)
[2017-04-04] MEDS ORDERED: ONDANSETRON 4 MG/2 ML VIAL IV PRN (06:32)
[2017-04-04] MEDS ORDERED: ALBUTEROL 2.5 MG/3 ML NEB RESP TX PRN (06:32)
[2017-04-04] MEDS ORDERED: FUROSEMIDE 40 MG/4 ML VIAL ONE (06:34)
[2017-04-04] MEDS ORDERED: ONDANSETRON 4 MG/2 ML VIAL ONE (06:34)
[2017-04-04] MEDS ORDERED: methylPREDNISolone SOD SUC 125 MG/2 ML VIAL ONE (06:34)
[2017-04-04] MEDS ORDERED: CLINDAMYCIN INJ 50 ML IV ONE ×2 (06:35→11:52)
[2017-04-04] MEDS ORDERED: FUROSEMIDE 20 MG/2 ML VIAL ONE (06:35)
[2017-04-04] MEDS ORDERED: GLUCAGON 1 MG VIAL IM PRN (06:48)
[2017-04-04] MEDS ORDERED: DEXTROSE 50% 25 GM/50 ML VIAL IV PRN (06:48)
[2017-04-04] MEDS ORDERED: ETOMIDATE 20 MG/10 ML VIAL IV ONE (06:50)
[2017-04-04] MEDS ORDERED: VECURONIUM 10 MG VIAL IV ONE (06:50)
[2017-04-04] MEDS ORDERED: ETOMIDATE 20 MG/10 ML VIAL IV STA (06:56)
[2017-04-04] MEDS ORDERED: SODIUM CHLORIDE 0.9% 1,000 ML IV STA (06:58)
[2017-04-04] MEDS ORDERED: VECURONIUM 10 MG VIAL IV STA (06:59)
[2017-04-04] MEDS: PROPOFOL 1,000 MG/100 ML BOTTLE IV SCH (07:19)
[2017-04-04] MEDS ORDERED: VANCOMYCIN 1,000 MG VIAL ONE (07:20)
[2017-04-04] MEDS: ALBUTEROL/IPRATROPIUM 3 ML NEB RESP TX SCH ×3 (07:50→19:40)
[2017-04-04] MEDS ORDERED: LEVOFLOXACIN INJ 150 ML IV ONE (08:18)
[2017-04-04] MEDS ORDERED: ENOXAPARIN 40 MG/0.4 ML SYRINGE ONE (08:18)
[2017-04-04] MEDS ORDERED: PANTOPRAZOLE 40 MG VIAL IV ONE (08:18)
[2017-04-04] MEDS: ENOXAPARIN 40 MG/0.4 ML SYRINGE SUBCUT SCH (08:42)
[2017-04-04] MEDS: LEVOFLOXACIN INJ 750 MG in PREMIX 1 EACH IV SCH (08:43)
[2017-04-04] MEDS: PANTOPRAZOLE 40 MG VIAL IV SCH (08:44)
[2017-04-04] MEDS: SODIUM CHLORIDE 0.45% 1,000 ML IV SCH ×2 (10:14→20:32)
[2017-04-04 10:16] LABS: ABG Base Excess 2.1 MMOL/L (-2.5-2.5); ABG HCO3 26.4 MMOL/L (20-26); ABG PCO2 38.7 MM HG (35-48); ABG TCO2 23.8 MMOL/L (23-27)
[2017-04-04] MEDS ORDERED: INSULIN REGULAR 100 UNIT/ML ONE (11:51)
[2017-04-04] MEDS: INSULIN REGULAR 100 UNIT/ML SUBCUT SCH ×3 (11:53→23:59)
[2017-04-04] MEDS: CLINDAMYCIN INJ 900 MG in PREMIX 1 EACH IV SCH ×2 (14:14→20:30)
[2017-04-04] MEDS: methylPREDNISolone SOD SUC 40 MG/1 ML VIAL IV SCH (17:28)
[2017-04-05] MEDS: ALBUTEROL/IPRATROPIUM 3 ML NEB RESP TX SCH ×4 (00:30→19:35)
[2017-04-05] MEDS: SODIUM CHLORIDE 0.45% 1,000 ML IV SCH ×2 (02:38→21:16)
[2017-04-05] MEDS: PROPOFOL 1,000 MG/100 ML BOTTLE IV SCH ×2 (03:16→06:22)
[2017-04-05 03:39] LABS: ABG Base Excess 3.1 MMOL/L (-2.5-2.5); ABG HCO3 27.2 MMOL/L (20-26); ABG Oxygen Saturation 99.8 % (95-100); ABG PCO2 40.2 MM HG (35-48); ABG PH 7.441 (7.35-7.45); ABG TCO2 25.5 MMOL/L (23-27); Allen Test Positive; Pt O2 Delivery Device Ventilator
[2017-04-05 05:16] LABS: Basophils % 0.1 % (0.0-0.8); Hematocrit 27.4 VOL% (35.7-47.0); Hemoglobin 8.6 GM/DL (12.0-16.0); Immature Granulocytes % 0.9 %; Immature Granulocytes Absolute 0.18 #; Lymphocytes # 1.9 10*3/uL (1.4-4.0); Lymphocytes % 9.1 % (21.3-54.2); Mean Corpuscular HGB Conc 31.4 GM/DL (32-36); Mean Corpuscular Hemoglobin 29 PG (27-34); Mean Corpuscular Volume 92.3 FL (87-102); Monocytes # 1.7 10*3/uL (0.11-0.8); Monocytes % 8.3 % (1.7-12.7); Neutrophils # 16.7 10*3/uL (1.4-7.4); Neutrophils % 81.6 % (38.7-73.9); Platelet Count 299 T/CUMM (130-400); Red Blood Count 2.97 MC/CUMM (3.8-5.5); Red Cell Distribution Width 14.9 % (9.3-17.3); White Blood Count 20.5 T/CUMM (4-12)
[2017-04-05] MEDS: INSULIN REGULAR 100 UNIT/ML SUBCUT SCH ×3 (05:21→17:46)
[2017-04-05] MEDS: CLINDAMYCIN INJ 900 MG in PREMIX 1 EACH IV SCH ×3 (05:38→21:11)
[2017-04-05] MEDS: methylPREDNISolone SOD SUC 40 MG/1 ML VIAL IV SCH ×2 (05:38→15:40)
[2017-04-05 05:42] LABS: Giant Platelets Few; Hypochromasia 1+; Lymphocytes 6 % (20-55); Ovalocytes Slight; Platelet Estimate Adequate; Segmented Neutrophils 92 % (50-85); Total Cells Counted 100
[2017-04-05 05:51] LABS: Alanine Aminotransferase 17 U/L (13-56); Albumin 1.7 G/DL (3.4-5.0); Alkaline Phosphatase 100 U/L (45-117); Aspartate Amino Transferase 18 U/L (0-37); Bilirubin,Total < 0.39 MG/DL (0.2-1.0); Blood Urea Nitrogen 78 MG/DL (7-18); Calcium 9.3 MG/DL (8.5-10.1); Glucose 212 MG/DL (74-106); Osmolality,Calculated 314.8 MOS/KG (273-304); Potassium 4.9 MMOL/L (3.5-5.1); Sodium 144 MMOL/L (136-145); Total Protein 5.8 G/DL (6.4-8.3)
[2017-04-05 05:52] LABS: Magnesium 2.1 MG/DL (1.8-2.4); Phosphorous 4.2 MG/DL (2.5-4.9); Prealbumin 10.5 MG/DL (20-40)
[2017-04-05] MEDS: PANTOPRAZOLE 40 MG VIAL IV SCH (06:48)
[2017-04-05] MEDS: ENOXAPARIN 40 MG/0.4 ML SYRINGE SUBCUT SCH (08:32)
[2017-04-05] MEDS: LEVOFLOXACIN INJ 750 MG in PREMIX 1 EACH IV SCH (08:33)
[2017-04-05] MEDS: SKIN HEALING OINT (AQUAPHOR) 50 GM TUBE TOP PRN (11:04)
[2017-04-05] MEDS: SODIUM HYPOCHLORITE 0.25% IRRIG 473 ML BOTTLE TOP SCH (11:04)
[2017-04-06] MEDS: ALBUTEROL/IPRATROPIUM 3 ML NEB RESP TX SCH ×4 (00:36→19:26)
[2017-04-06] MEDS: SODIUM HYPOCHLORITE 0.25% IRRIG 473 ML BOTTLE TOP SCH ×3 (00:42→22:18)
[2017-04-06] MEDS: INSULIN REGULAR 100 UNIT/ML SUBCUT SCH ×4 (00:42→17:44)
[2017-04-06] MEDS: PROPOFOL 1,000 MG/100 ML BOTTLE IV SCH ×3 (00:46→17:33)
[2017-04-06 03:24] LABS: ABG HCO3 26.2 MMOL/L (20-26); ABG Oxygen Saturation 99.6 % (95-100); ABG PCO2 36.7 MM HG (35-48); ABG PH 7.454 (7.35-7.45); ABG TCO2 22.7 MMOL/L (23-27); Allen Test Positive; Pt O2 Delivery Device Ventilator
[2017-04-06 05:53] LABS: Basophils % 0.2 % (0.0-0.8); Eosinophils % 0.1 % (0.00-10.9); Hematocrit 31.5 VOL% (35.7-47.0); Hemoglobin 9.6 GM/DL (12.0-16.0); Immature Granulocytes % 0.8 %; Immature Granulocytes Absolute 0.16 #; Lymphocytes # 2.4 10*3/uL (1.4-4.0); Lymphocytes % 12.3 % (21.3-54.2); Mean Corpuscular HGB Conc 30.5 GM/DL (32-36); Mean Corpuscular Hemoglobin 30 PG (27-34); Mean Corpuscular Volume 99.7 FL (87-102); Mean Platelet Volume 11.1 FL (9.6-12.0); Monocytes # 1.7 10*3/uL (0.11-0.8); Monocytes % 8.7 % (1.7-12.7); Neutrophils # 15.5 10*3/uL (1.4-7.4); Neutrophils % 77.9 % (38.7-73.9); Platelet Count 254 T/CUMM (130-400); Red Blood Count 3.16 MC/CUMM (3.8-5.5); Red Cell Distribution Width 15.3 % (9.3-17.3); White Blood Count 19.8 T/CUMM (4-12)
[2017-04-06] MEDS: methylPREDNISolone SOD SUC 40 MG/1 ML VIAL IV SCH ×2 (06:09→16:25)
[2017-04-06] MEDS: PANTOPRAZOLE 40 MG VIAL IV SCH (06:09)
[2017-04-06] MEDS: CLINDAMYCIN INJ 900 MG in PREMIX 1 EACH IV SCH ×3 (06:10→22:31)
[2017-04-06 06:27] LABS: Calcium 9.3 MG/DL (8.5-10.1); Magnesium 2.3 MG/DL (1.8-2.4); Osmolality,Calculated 310.3 MOS/KG (273-304); Potassium 4.6 MMOL/L (3.5-5.1)
[2017-04-06] MEDS: LEVOFLOXACIN INJ 750 MG in PREMIX 1 EACH IV SCH (09:05)
[2017-04-06] MEDS: SODIUM CHLORIDE 0.45% 1,000 ML IV SCH (09:05)
[2017-04-06] MEDS: ENOXAPARIN 40 MG/0.4 ML SYRINGE SUBCUT SCH (09:08)
[2017-04-06] MEDS: CLOPIDOGREL 75 MG TABLET PEG SCH (09:08)
[2017-04-06] MEDS: ASCORBIC ACID 500 MG TABLET PEG SCH ×2 (09:09→22:18)
[2017-04-06] MEDS: SKIN HEALING OINT (AQUAPHOR) 50 GM TUBE TOP PRN (09:09)
[2017-04-06] MEDS: ZINC SULFATE 220 MG CAPSULE PEG SCH (10:16)
[2017-04-06] MEDS: AZTREONAM 1,000 MG in SYRINGE 1 EACH IV SCH ×3 (11:48→18:08)
[2017-04-06 20:39] LABS: Troponin I Only 0.035 NG/ML (0.00-0.045)
[2017-04-06 23:31] LABS: Troponin I Only 0.029 NG/ML (0.00-0.045)
[2017-04-07] MEDS: INSULIN REGULAR 100 UNIT/ML SUBCUT SCH ×4 (00:19→17:38)
[2017-04-07] MEDS: ALBUTEROL/IPRATROPIUM 3 ML NEB RESP TX SCH ×4 (00:53→18:00)
[2017-04-07] MEDS: AZTREONAM 1,000 MG in SYRINGE 1 EACH IV SCH ×3 (02:43→18:09)
[2017-04-07 02:45] LABS: ABG Base Excess 0.4 MMOL/L (-2.5-2.5); ABG HCO3 24.2 MMOL/L (20-26); ABG Oxygen Saturation 98.8 % (95-100); ABG PCO2 35.7 MM HG (35-48); ABG PH 7.449 (7.35-7.45); ABG PO2 162.8 MM HG (80-95); ABG TCO2 25.3 MMOL/L (23-27); Allen Test Positive; Pt O2 Delivery Device Ventilator
[2017-04-07] MEDS: PROPOFOL 1,000 MG/100 ML BOTTLE IV SCH ×2 (02:45→02:51)
[2017-04-07 04:31] LABS: Basophils % 0.1 % (0.0-0.8); Eosinophils % 0.1 % (0.00-10.9); Hematocrit 27.7 VOL% (35.7-47.0); Hemoglobin 8.8 GM/DL (12.0-16.0); Immature Granulocytes % 0.6 %; Immature Granulocytes Absolute 0.09 #; Lymphocytes # 1.7 10*3/uL (1.4-4.0); Lymphocytes % 10.9 % (21.3-54.2); Mean Corpuscular HGB Conc 31.8 GM/DL (32-36); Mean Corpuscular Hemoglobin 29 PG (27-34); Mean Corpuscular Volume 91.7 FL (87-102); Mean Platelet Volume 11.1 FL (9.6-12.0); Monocytes # 1.2 10*3/uL (0.11-0.8); Monocytes % 7.9 % (1.7-12.7); Neutrophils # 12.3 10*3/uL (1.4-7.4); Neutrophils % 80.4 % (38.7-73.9); Platelet Count 292 T/CUMM (130-400); Red Blood Count 3.02 MC/CUMM (3.8-5.5); Red Cell Distribution Width 14.9 % (9.3-17.3); White Blood Count 15.3 T/CUMM (4-12)
[2017-04-07 05:03] LABS: Calcium 9.2 MG/DL (8.5-10.1); Magnesium 2.4 MG/DL (1.8-2.4); Osmolality,Calculated 309.1 MOS/KG (273-304); Potassium 4.5 MMOL/L (3.5-5.1)
[2017-04-07] MEDS: methylPREDNISolone SOD SUC 40 MG/1 ML VIAL IV SCH ×2 (05:23→17:39)
[2017-04-07] MEDS: CLINDAMYCIN INJ 900 MG in PREMIX 1 EACH IV SCH (05:23)
[2017-04-07] MEDS: PANTOPRAZOLE 40 MG VIAL IV SCH (06:09)
[2017-04-07 08:44] LABS: Troponin I Only 0.033 NG/ML (0.00-0.045)
[2017-04-07] MEDS: ENOXAPARIN 40 MG/0.4 ML SYRINGE SUBCUT SCH (09:09)
[2017-04-07] MEDS: CLOPIDOGREL 75 MG TABLET PEG SCH (09:10)
[2017-04-07] MEDS: ZINC SULFATE 220 MG CAPSULE PEG SCH (09:10)
[2017-04-07] MEDS: SODIUM HYPOCHLORITE 0.25% IRRIG 473 ML BOTTLE TOP SCH ×2 (09:10→20:47)
[2017-04-07] MEDS: ASCORBIC ACID 500 MG TABLET PEG SCH ×2 (09:10→20:47)
[2017-04-07] MEDS: LINEZOLID INJ 600 MG in PREMIX 1 EACH IV SCH ×2 (09:28→18:58)
[2017-04-08] MEDS: INSULIN REGULAR 100 UNIT/ML SUBCUT SCH ×4 (00:28→17:01)
[2017-04-08] MEDS: ALBUTEROL/IPRATROPIUM 3 ML NEB RESP TX SCH ×4 (01:30→19:41)
[2017-04-08] MEDS: AZTREONAM 1,000 MG in SYRINGE 1 EACH IV SCH ×3 (02:31→18:11)
[2017-04-08] MEDS: methylPREDNISolone SOD SUC 40 MG/1 ML VIAL IV SCH ×2 (04:05→16:51)
[2017-04-08 06:01] LABS: Basophils % 0.1 % (0.0-0.8); Eosinophils # 0.1 10*3/uL (0.0-0.87); Eosinophils % 0.3 % (0.00-10.9); Hematocrit 31.3 VOL% (35.7-47.0); Hemoglobin 9.8 GM/DL (12.0-16.0); Immature Granulocytes % 0.9 %; Immature Granulocytes Absolute 0.16 #; Lymphocytes # 1.7 10*3/uL (1.4-4.0); Lymphocytes % 9.2 % (21.3-54.2); Mean Corpuscular HGB Conc 31.3 GM/DL (32-36); Mean Corpuscular Hemoglobin 29 PG (27-34); Mean Corpuscular Volume 93.2 FL (87-102); Mean Platelet Volume 11.3 FL (9.6-12.0); Monocytes # 1.3 10*3/uL (0.11-0.8); Monocytes % 6.9 % (1.7-12.7); Neutrophils # 15.3 10*3/uL (1.4-7.4); Neutrophils % 82.6 % (38.7-73.9); Platelet Count 283 T/CUMM (130-400); Red Blood Count 3.36 MC/CUMM (3.8-5.5); Red Cell Distribution Width 14.9 % (9.3-17.3); White Blood Count 18.5 T/CUMM (4-12)
[2017-04-08 06:25] LABS: Magnesium 2.4 MG/DL (1.8-2.4); Osmolality,Calculated 301.3 MOS/KG (273-304); Potassium 4.7 MMOL/L (3.5-5.1)
[2017-04-08] MEDS: PANTOPRAZOLE 40 MG VIAL IV SCH (08:16)
[2017-04-08] MEDS: ENOXAPARIN 40 MG/0.4 ML SYRINGE SUBCUT SCH (08:19)
[2017-04-08] MEDS: SODIUM HYPOCHLORITE 0.25% IRRIG 473 ML BOTTLE TOP SCH ×2 (08:19→21:51)
[2017-04-08] MEDS: ZINC SULFATE 220 MG CAPSULE PEG SCH (08:20)
[2017-04-08] MEDS: ASCORBIC ACID 500 MG TABLET PEG SCH ×2 (08:20→21:51)
[2017-04-08] MEDS: LINEZOLID INJ 600 MG in PREMIX 1 EACH IV SCH ×2 (08:20→21:48)
[2017-04-08] MEDS: CLOPIDOGREL 75 MG TABLET PEG SCH (08:21)
[2017-04-09] MEDS: INSULIN REGULAR 100 UNIT/ML SUBCUT SCH ×4 (00:31→18:16)
[2017-04-09] MEDS: ALBUTEROL/IPRATROPIUM 3 ML NEB RESP TX SCH ×4 (01:25→20:38)
[2017-04-09] MEDS: methylPREDNISolone SOD SUC 40 MG/1 ML VIAL IV SCH ×2 (04:12→16:23)
[2017-04-09] MEDS: AZTREONAM 1,000 MG in SYRINGE 1 EACH IV SCH ×3 (04:13→18:17)
[2017-04-09 06:20] LABS: Basophils % 0.1 % (0.0-0.8); Eosinophils # 0.1 10*3/uL (0.0-0.87); Eosinophils % 0.6 % (0.00-10.9); Hemoglobin 10.1 GM/DL (12.0-16.0); Immature Granulocytes % 0.9 %; Immature Granulocytes Absolute 0.19 #; Lymphocytes # 2.8 10*3/uL (1.4-4.0); Mean Corpuscular HGB Conc 31.6 GM/DL (32-36); Mean Corpuscular Hemoglobin 29 PG (27-34); Mean Corpuscular Volume 91.7 FL (87-102); Mean Platelet Volume 11.1 FL (9.6-12.0); Monocytes # 1.5 10*3/uL (0.11-0.8); Monocytes % 6.9 % (1.7-12.7); Neutrophils % 78.5 % (38.7-73.9); Platelet Count 385 T/CUMM (130-400); Red Blood Count 3.49 MC/CUMM (3.8-5.5); Red Cell Distribution Width 15.1 % (9.3-17.3); White Blood Count 21.7 T/CUMM (4-12)
[2017-04-09 06:49] LABS: Giant Platelets Few; Hypochromasia 1+; Platelet Estimate Adequate
[2017-04-09 07:08] LABS: Bilirubin,Total 0.5 MG/DL (0.2-1.0); Calcium 9.4 MG/DL (8.5-10.1); Osmolality,Calculated 302.5 MOS/KG (273-304); Phosphorous 2.3 MG/DL (2.5-4.9); Potassium 4.5 MMOL/L (3.5-5.1); Total Protein 6.4 G/DL (6.4-8.3)
[2017-04-09] MEDS: PANTOPRAZOLE 40 MG VIAL IV SCH (08:49)
[2017-04-09] MEDS: CLOPIDOGREL 75 MG TABLET PEG SCH (08:50)
[2017-04-09] MEDS: ASCORBIC ACID 500 MG TABLET PEG SCH ×2 (08:50→21:14)
[2017-04-09] MEDS: ENOXAPARIN 40 MG/0.4 ML SYRINGE SUBCUT SCH (08:52)
[2017-04-09] MEDS: LINEZOLID INJ 600 MG in PREMIX 1 EACH IV SCH (08:54)
[2017-04-09] MEDS: SODIUM HYPOCHLORITE 0.25% IRRIG 473 ML BOTTLE TOP SCH ×2 (08:56→21:20)
[2017-04-09] MEDS: ZINC SULFATE 220 MG CAPSULE PEG SCH (10:10)
[2017-04-10] MEDS: ALBUTEROL/IPRATROPIUM 3 ML NEB RESP TX SCH ×4 (01:58→19:00)
[2017-04-10] MEDS: INSULIN REGULAR 100 UNIT/ML SUBCUT SCH ×4 (04:43→18:20)
[2017-04-10] MEDS: AZTREONAM 1,000 MG in SYRINGE 1 EACH IV SCH ×3 (04:44→18:22)
[2017-04-10] MEDS: LINEZOLID INJ 600 MG in PREMIX 1 EACH IV SCH ×2 (04:45→14:22)
[2017-04-10] MEDS: methylPREDNISolone SOD SUC 40 MG/1 ML VIAL IV SCH (04:55)
[2017-04-10 05:53] LABS: Basophils % 0.1 % (0.0-0.8); Eosinophils # 0.2 10*3/uL (0.0-0.87); Eosinophils % 0.6 % (0.00-10.9); Hematocrit 29.6 VOL% (35.7-47.0); Hemoglobin 9.3 GM/DL (12.0-16.0); Immature Granulocytes Absolute 0.25 #; Lymphocytes # 3.3 10*3/uL (1.4-4.0); Mean Corpuscular HGB Conc 31.4 GM/DL (32-36); Mean Corpuscular Hemoglobin 29 PG (27-34); Mean Corpuscular Volume 91.9 FL (87-102); Mean Platelet Volume 10.7 FL (9.6-12.0); Monocytes # 1.4 10*3/uL (0.11-0.8); Monocytes % 5.5 % (1.7-12.7); Neutrophils # 20.3 10*3/uL (1.4-7.4); Neutrophils % 79.8 % (38.7-73.9); Platelet Count 353 T/CUMM (130-400); Red Blood Count 3.22 MC/CUMM (3.8-5.5); White Blood Count 25.5 T/CUMM (4-12)
[2017-04-10 06:32] LABS: Calcium 8.7 MG/DL (8.5-10.1); Magnesium 2.5 MG/DL (1.8-2.4); Osmolality,Calculated 300.4 MOS/KG (273-304); Potassium 4.7 MMOL/L (3.5-5.1)
[2017-04-10 06:37] LABS: Magnesium 2.6 MG/DL (1.8-2.4); Phosphorous 2.6 MG/DL (2.5-4.9); Prealbumin 21.9 MG/DL (20-40)
[2017-04-10] MEDS: ENOXAPARIN 40 MG/0.4 ML SYRINGE SUBCUT SCH (11:08)
[2017-04-10] MEDS: ZINC SULFATE 220 MG CAPSULE PEG SCH (11:09)
[2017-04-10] MEDS: ASCORBIC ACID 500 MG TABLET PEG SCH (11:09)
[2017-04-10] MEDS: CLOPIDOGREL 75 MG TABLET PEG SCH (11:09)
[2017-04-10] MEDS: PANTOPRAZOLE 40 MG VIAL IV SCH (11:09)
[2017-04-10] MEDS: SODIUM HYPOCHLORITE 0.25% IRRIG 473 ML BOTTLE TOP SCH (14:22)
[2017-04-11] MEDS: AZTREONAM 1,000 MG in SYRINGE 1 EACH IV SCH ×2 (00:32→10:25)
[2017-04-11] MEDS: LINEZOLID INJ 600 MG in PREMIX 1 EACH IV SCH ×2 (00:33→10:25)
[2017-04-11] MEDS: methylPREDNISolone SOD SUC 40 MG/1 ML VIAL IV SCH ×2 (00:39→10:13)
[2017-04-11] MEDS: SODIUM HYPOCHLORITE 0.25% IRRIG 473 ML BOTTLE TOP SCH (00:41)
[2017-04-11] MEDS: ASCORBIC ACID 500 MG TABLET PEG SCH ×2 (00:41→10:12)
[2017-04-11] MEDS: INSULIN REGULAR 100 UNIT/ML SUBCUT SCH ×2 (00:51→06:52)
[2017-04-11] MEDS: ALBUTEROL/IPRATROPIUM 3 ML NEB RESP TX SCH ×2 (01:23→07:20)
[2017-04-11] MEDS: ZINC SULFATE 220 MG CAPSULE PEG SCH (10:12)
[2017-04-11] MEDS: ENOXAPARIN 40 MG/0.4 ML SYRINGE SUBCUT SCH (10:12)
[2017-04-11] MEDS: CLOPIDOGREL 75 MG TABLET PEG SCH (10:13)
[2017-04-11] MEDS: PANTOPRAZOLE 40 MG VIAL IV SCH (10:18)
[2017-04-11] MEDS ORDERED: LINEZOLID 600 MG TABLET PO SCH (11:00)
[2017-04-11 11:54] VITALS: BP 113/56
[2017-04-11] MEDS ORDERED: cephALEXin 500 MG CAPSULE PO SCH (13:00)
== END 2017-04-11 12:35 | DRG 208 ==
LOC: EDUNIT# → EDBD → N.ED 04:24 → SUATTDRO 06:32 → N.EDINP 06:32 → N.CC 14:39 → N.TELEN 04-08 20:08 → N.2E 04-09 17:24
PROVIDERS: ADMIT Internal Medicine; ATTEND Internal Medicine